=== PATIENT | female | born 1965 | race Caucasian/White ===

== ENCOUNTER 2016-10-29 05:42 | Outpatient (CLI) | payer OTHER ==
[~2016-10-29] VITALS: Ht 162.6 cm; Wt 135.2 kg
[~2016-10-29 05:42] MED LIST: ALPR.5T PO; ALPR1T PO; CYCL10TA9 PO; DIPH25CA79 PO; EZET10TA5 PO; FAMO-119 PO; HCT25T PO; HYDR-707 PO; HYOS0.1216 PO; METF500T4 PO; METO-354 PO; NADO20TA PO; NAPR-243 PO; OMEP40CA36 PO; POLY119P PO; POTA10TA21 PO; PRAV10TA23; PRM25T PO; PROP40TA5 PO; TRIA1CAP4 PO
[2016-10-29] MEDS ORDERED: ALPR0.5T7 PO ×2 (13:21)
[2016-10-29] MEDS ORDERED: METF500T8 PO ×2 (13:21)
== END 2016-10-29 13:22 ==
LOC: PREOP 05:42
PROVIDERS: ATTEND Surgery
DX: Z01.818 Encounter for other preprocedural examination (principal); Z86.010 Personal history of colon polyps

== ENCOUNTER 2016-11-02 08:54 | Day surgery (SDC) | payer OTHER ==
[~2016-11-02 08:54] MED LIST changes: +ALPR0.5T7 PO; +METF500T8 PO
[2016-11-02] MEDS ORDERED: NS IV 1000 ML 1,000 ML IV STA (08:59)
[2016-11-02 09:00] VITALS: BP 109/46
[2016-11-02] MEDS ORDERED: FLUMAZENIL (ROMAZICON) 0.1 MG/ML 5 ML VIAL INJ PRN (09:00)
[2016-11-02] MEDS ORDERED: NALOXONE 0.4 MG/ML 1 ML (NARCAN) VIAL IVP PRN (09:00)
[2016-11-02] MEDS ORDERED: proPOfol 200 MG/20 ML (DIPRIVAN) VIAL IV ONE ×2 (09:18→09:50)
[2016-11-02] MEDS ORDERED: MIDAZOLAM 2 MG/2 ML (VERSED) VIAL ONE (09:19)
--- NOTE | 2016-11-02 09:21 | Progress Note-Pre Operative ---
Pre-Operative Progress Note H&P Reviewed The H&P was reviewed, patient examined and no changes noted. Date Seen by Provider: Nov 02, 2016 Time Seen by Provider: : Date H&P Reviewed: Nov 02, 2016 Time H&P Reviewed: 09:21 Pre-Operative Diagnosis: history of polyps LI GENAO DO Nov 02, 2016 9:21 am
--- NOTE | 2016-11-02 10:06 | Discharge Inst-Simple/Standard ---
Discharge Inst-Standard Patient Instructions/Follow Up Plan of Care/Instructions/FU: Follow up with Dr. Taylor as needed Will need repeat colonoscopy in 5 years or sooner if changes to current condition. Activity as Tolerated: Yes Discharge Diet: No Restrictions COLLEEN ALATORRE APRN Nov 02, 2016 10:06
[2016-11-02 10:10] VITALS: BP 113/64
[2016-11-02 10:40] VITALS: BP 120/60
[2016-11-02 10:41] VITALS: BP 120/60
--- NOTE | 2016-11-03 04:05 | OPERATIVE REPORT ---
DATE OF SERVICE: 11/02/2016 PREOPERATIVE DIAGNOSIS: History of colon polyps. POSTOPERATIVE DIAGNOSIS: Normal colon. PROCEDURE: Colonoscopy. SURGEON: Li Taylor DO ANESTHESIA: Per PULP GRINDER. ESTIMATED BLOOD LOSS: None. COMPLICATIONS: None. INDICATIONS: The patient is a 50-year-old female with history of colon polyps. She understands risks and benefits of procedure and wished to proceed with procedure. Consent was signed and on the chart. PROCEDURE: The patient was taken to the endoscopy suite, placed in left lateral recumbent position. Timeout was performed. Digital rectal exam was performed. There were no palpable polyps, masses or ulcerations. Scope was then inserted in the rectum and advanced all the way to the cecum with minimal difficulty. Prep was adequate. Scope was then slowly retracted back. There were no polyps, masses or ulcerations within the cecum, ascending, transverse, descending, sigmoid colon or rectum. The scope was also retroflexed, noting no further pathology. The scope was returned to its normal position, slowly withdrawn and completely removed. The patient tolerated the procedure well without any complications. She was taken to the recovery room in stable condition. RECOMMENDATIONS: The patient is recommended to have a repeat colonoscopy in 5 years due to history of polyps. If she has any problems prior to that, she should be reevaluated at that time. Job ID: [id number] DocumentID: [id number] Dictated Date: 11/02/2016 13:07:33 Field Merchandiser Date: 11/03/2016 02:38:25 Dictated By: LI TAYLOR DO
--- OUTSIDE RECORDS SUMMARY | 2016-11-04 14:26 | XMS REPORT | Continuity of Care Document ---
Author Author [facility] Organization [facility] Address Unknown Phone Unavailable Allergies Active Description Code Type Severity Reaction Onset Reported/Identified Relationship to Patient Clinical Status Yes doxycycline [id number] Drug Allergy Severe DIFFICULTY HOLA 02/10/2007 Yes Penicillins [id number] Drug Allergy Severe HIVES, THROAT S 02/10/2007 Yes TAPE TAPE Mild RASH, WHELPS ON 02/10/2007 Yes latex [id number] Drug Allergy Mild RASH 11/07/2015 Yes celecoxib [id number] Drug Allergy Unknown N/A 11/08/2015 Yes hydrocodone [id number] Drug Allergy Moderate "MAKES HER FEEL 12/15/2015 Yes Cephalosporins [id number] Drug Allergy Unknown N/A 12/16/2015 Medications Problems Date Dx Coded Attending Type Code Diagnosis Diagnosed By 04/05/2012 Ot 250.00 04/05/2012 Ot 401.9 04/05/2012 Ot 789.00 04/05/2012 Ot V10.52 04/24/2014 ANALIA WOLF, TOD Marcial Ot 272.4 04/24/2014 ANALIA WOLF, TOD Marcial Ot 401.9 04/24/2014 ANALIA WOLF, TOD Marcial Ot V58.69 04/24/2014 ANALIA WOLF, TOD Marcial Ot V58.83 04/24/2014 ANALIA WOLF, TOD Marcial Ot 189.0 04/24/2014 ANALIA WOLF, TOD Marcial Ot 250.00 04/24/2014 TOD HELMS MD Ot 272.4 04/24/2014 ANALIA WOLF, TOD Marcial Ot 401.9 04/24/2014 ANALIA WOLF, TOD Marcial Ot V70.0 04/24/2014 ANALIA WOLF, TOD Marcial Ot 250.00 04/24/2014 ANALIA WOLF, TOD Marcial Ot 272.4 04/24/2014 ANALIA WOLF, TOD Marcial Ot 571.8 04/24/2014 TOD HELMS MD Ot 593.2 04/24/2014 TOD HELMS MD Ot 790.5 04/24/2014 TOD HELMS MD Ot 790.99 04/24/2014 ANALIA WOLF, TOD J Ot V10.52 04/24/2014 ANALIA WOLF, TOD J Ot V76.12 10/31/2014 ANALIA WOLF, TOD J Ot 272.4 10/31/2014 ANALIA WOLF, TOD J Ot 401.9 10/31/2014 ANALIA WOLF, TOD J Ot V58.69 10/31/2014 ANALIA WOLF, TOD J Ot V58.83 10/31/2014 ANALIA WOLF, TOD J Ot 189.0 10/31/2014 ANALIA WOLF, TOD J Ot 250.00 10/31/2014 ANALIA WOLF, TOD J Ot 272.4 10/31/2014 ANALIA WOLF, TOD J Ot 401.9 10/31/2014 ANALIA WOLF, TOD J Ot V70.0 10/31/2014 ANALIA WOLF, TOD J Ot 250.00 10/31/2014 ANALIA WOLF, TOD J Ot 272.4 10/31/2014 ANALIA WOLF, TOD J Ot 571.8 10/31/2014 ANALIA WOLF, TOD J Ot 593.2 10/31/2014 ANALIA WOLF, TOD J Ot 790.5 10/31/2014 ANALIA WOLF, TOD J Ot 790.99 10/31/2014 ANALIA WOLF, TOD J Ot V10.52 10/31/2014 ANALIA WOLF, TOD J Ot V76.12 10/31/2014 ANALIA WOLF, TOD J Ot 250.00 10/31/2014 ANALIA WOLF, TOD J Ot 272.4 10/31/2014 ANALIA WOLF, TOD J Ot 571.8 10/31/2014 ANALIA WOLF, TOD J Ot 729.5 10/31/2014 ANALIA WOLF, TOD J Ot V10.52 11/08/2014 Ot 244.9 11/08/2014 Ot 250.00 11/08/2014 Ot 729.5 11/08/2014 Ot 786.50 11/08/2014 Ot 789.01 11/26/2014 Ot 244.9 11/26/2014 Ot 250.00 11/26/2014 Ot 729.5 11/26/2014 Ot 786.50 11/26/2014 Ot 789.01 11/26/2014 ANALIA WOLF, TOD J Ot 244.9 11/26/2014 ANALIA WOLF, TOD J Ot 250.00 11/26/2014 ANALIA WOLF, TOD J Ot 272.4 11/26/2014 ANALIA MD, TOD J Ot 401.9 11/26/2014 ANALIA WOLF, TOD J Ot V58.69 11/28/2014 ANALIA WOLF, TOD J Ot 244.9 11/28/2014 ANALIA WOLF, TOD J Ot 250.00 11/28/2014 ANALIA WOLF, TOD J Ot 272.4 11/28/2014 ANALIA WOLF, TOD J Ot 401.9 11/28/2014 ANALIA WOLF, TOD J Ot V58.69 11/28/2014 ANALIA WOLF, TOD J Ot 272.4 11/28/2014 ANALIA WOLF, TOD J Ot 401.9 11/28/2014 ANALIA WOLF, TOD J Ot V58.69 11/28/2014 ANALIA WOLF, TOD J Ot V58.83 11/28/2014 ANALIA WOLF, TOD J Ot 189.0 11/28/2014 ANALIA WOLF, TOD J Ot 250.00 11/28/2014 ANALIA WOLF, TOD J Ot 272.4 11/28/2014 ANALIA WOLF, TOD J Ot 401.9 11/28/2014 ANALIA WOLF, TOD J Ot V70.0 11/28/2014 ANALIA WOLF, TOD J Ot 250.00 11/28/2014 ANALIA WOLF, TOD J Ot 272.4 11/28/2014 ANALIA WOLF, TOD J Ot 571.8 11/28/2014 ANALIA WOLF, TOD J Ot 593.2 11/28/2014 ANALIA WOLF, TOD J Ot 790.5 11/28/2014 ANALIA WOLF, ROLLA J Ot 790.99 11/28/2014 ANALIA WOLF, TOD J Ot V10.52 11/28/2014 ANALIA WOLF, TOD J Ot V76.12 11/28/2014 ANALIA WOLF, TOD J Ot 250.00 11/28/2014 ANALIA WOLF, TOD J Ot 272.4 11/28/2014 ANALIA WOLF, TOD J Ot 571.8 11/28/2014 ANALIA WOLF, TOD J Ot 729.5 11/28/2014 ANALIA WOLF, TOD J Ot V10.52 11/28/2014 ANALIA WOLF, TOD J Ot 244.9 11/28/2014 ANALIA WOLF, TDO J Ot 250.00 11/28/2014 ANALIA WOLF, TOD J Ot 272.4 11/28/2014 ANALIA WOLF, TOD J Ot 401.9 11/28/2014 ANALIA WOLF, TOD J Ot V58.69 12/10/2014 ANALIA WOLF, TOD J Ot 272.4 12/10/2014 ANALIA WOLF, TOD J Ot 401.9 12/10/2014 ANALIA WOLF, TOD J Ot V58.69 12/10/2014 ANALIA WOLF, TOD J Ot V58.83 12/10/2014 ANALIA WOLF, TOD J Ot 189.0 12/10/2014 ANALIA WOLF, TOD J Ot 250.00 12/10/2014 ANALIA WOLF, TOD J Ot 272.4 12/10/2014 ANALIA WOLF, TOD J Ot 401.9 12/10/2014 ANALIA WOLF, TOD J Ot V70.0 12/10/2014 ANALIA WOLF, TOD J Ot 250.00 12/10/2014 ANALIA WOLF, TOD J Ot 272.4 12/10/2014 ANALIA WOLF, TOD J Ot 571.8 12/10/2014 ANALIA WOLF, TOD J Ot 593.2 12/10/2014 ANALIA WOLF, TOD J Ot 790.5 12/10/2014 ANALIA WOLF, TOD J Ot 790.99 12/10/2014 ANALIA WOLF, TOD J Ot V10.52 12/10/2014 ANALIA WOLF, TOD J Ot V76.12 12/10/2014 ANALIA WOLF, TOD J Ot 250.00 12/10/2014 ANALIA WOLF, TOD J Ot 272.4 12/10/2014 ANALIA WOLF, TOD J Ot 571.8 12/10/2014 ANALIA WOLF, TOD J Ot 729.5 12/10/2014 ANALIA WOLF, TOD J Ot V10.52 12/10/2014 ANALIA WOLF, TOD J Ot 244.9 12/10/2014 ANALIA WOLF, TOD J Ot 250.00 12/10/2014 ANALIA WOLF, TOD J Ot 272.4 12/10/2014 ANALIA WOLF, TOD J Ot 401.9 12/10/2014 ANALIA WOLF, TOD J Ot V58.69 12/12/2014 ANALIA WOLF, TOD J Ot 722.6 12/12/2014 ANALIA WOLF, TOD J Ot 724.2 12/12/2014 ANALIA WOLF, TOD J Ot V57.1 12/12/2014 ANALIA WOLF, TOD J Ot 722.6 12/12/2014 ANALIA WOLF, TOD J Ot 724.2 12/12/2014 ANALIA WOLF, TOD J Ot V57.1 12/12/2014 ANALIA WOLF, TOD J Ot 275.42 12/17/2014 ANALIA WOLF, TOD J Ot 722.6 12/17/2014 ANALIA WOLF, TOD J Ot 724.2 12/17/2014 ANALIA WOLF, TOD Marcial Ot V57.1 12/24/2014 ANALIA WOLF, TOD Marcial Ot 722.6 12/24/2014 TOD HELMS MD Ot 724.2 12/24/2014 TOD HELMS MD Ot V57.1 12/25/2014 TOD HELMS MD Ot 722.6 12/25/2014 TOD HELMS MD Ot 724.2 12/25/2014 TOD HELMS MD Ot V57.1 12/25/2014 ANALIA WOLF, TOD Marcial Ot 275.42 02/12/2015 ANALIA WOLF, TOD Marcial Ot 722.6 DISC DEGENERATION NOS 02/12/2015 ANALIA WOLF, TOD Marcial Ot 724.2 LUMBAGO 02/12/2015 TOD HELMS MD Ot V57.1 PHYSICAL THERAPY NEC 02/13/2015 TOD HELMS MD Ot 722.6 02/13/2015 TOD HELMS MD Ot 724.2 02/13/2015 TOD HELMS MD Ot V57.1 05/15/2015 TOD HELMS MD Ot 724.2 05/15/2015 ANALIA WOLF, TOD Marcial Ot M54.5 09/12/2015 Ot 244.9 HYPOTHYROIDISM NOS 09/12/2015 Ot 250.00 DIAB VIRI WO COMPL, TYPE II OR UNSPEC TY 09/12/2015 Ot 729.5 PAIN IN LIMB 09/12/2015 Ot 786.50 CHEST PAIN NOS 09/12/2015 Ot 789.01 ABDOMINAL PAIN, RIGHT UPPER QUADRANT 11/07/2015 Ot 244.9 HYPOTHYROIDISM NOS 11/07/2015 Ot 250.00 DIAB VIRI WO COMPL, TYPE II OR UNSPEC TY 11/07/2015 Ot 729.5 PAIN IN LIMB 11/07/2015 Ot 786.50 CHEST PAIN NOS 11/07/2015 Ot 789.01 ABDOMINAL PAIN, RIGHT UPPER QUADRANT 11/07/2015 ANALIA WOLF, TOD Marcial Ot M54.5 LOW BACK PAIN 11/07/2015 Ot J18.9 PNEUMONIA, UNSPECIFIED ORGANISM 11/07/2015 Ot 250.00 DIAB VIRI WO COMPL, TYPE II OR UNSPEC TY 11/07/2015 Ot 571.8 CHRONIC LIVER DIS NEC 11/07/2015 Ot 780.4 DIZZINESS AND GIDDINESS 11/07/2015 Ot 786.07 WHEEZING 11/07/2015 Ot 786.2 COUGH 11/07/2015 Ot 789.00 ABDOMINAL PAIN, UNSPECIFIED SITE 11/07/2015 Ot V10.52 HX OF KIDNEY MALIGNANCY 11/07/2015 Ot V70.0 ROUTINE MEDICAL EXAM 11/07/2015 Ot 785.1 PALPITATIONS 11/07/2015 Ot 786.50 CHEST PAIN NOS 11/07/2015 JOSH FARIAS MD Ot E66.09 OTHER OBESITY DUE TO EXCESS CALORIES 11/07/2015 JOSH FARIAS MD Ot M51.16 INTERVERTEBRAL DISC DISORDERS W RADICULO 11/07/2015 JOSH FARIAS MD Ot M53.3 SACROCOCCYGEAL DISORDERS, NOT ELSEWHERE 11/07/2015 JOSH FARIAS MD Ot Z68.43 BODY MASS INDEX (BMI) 50-59.9 , ADULT 11/07/2015 Ot J18.9 PNEUMONIA, UNSPECIFIED ORGANISM 11/08/2015 Ot 250.00 DIAB VIRI WO COMPL, TYPE II OR UNSPEC TY 11/08/2015 Ot 571.8 CHRONIC LIVER DIS NEC 11/08/2015 Ot 780.4 DIZZINESS AND GIDDINESS 11/08/2015 Ot 786.07 WHEEZING 11/08/2015 Ot 786.2 COUGH 11/08/2015 Ot 789.00 ABDOMINAL PAIN, UNSPECIFIED SITE 11/08/2015 Ot V10.52 HX OF KIDNEY MALIGNANCY 11/08/2015 Ot V70.0 ROUTINE MEDICAL EXAM 11/08/2015 Ot 785.1 PALPITATIONS 11/08/2015 Ot 786.50 CHEST PAIN NOS 11/08/2015 BARRY HENNING DO Ot E11.65 TYPE 2 DIABETES MELLITUS WITH HYPERGLYCE 11/08/2015 BARRY HENNING DO Ot L50.9 URTICARIA, UNSPECIFIED 11/08/2015 BARRY HENNING DO Ot Z79.4 HOUSE NURSE (CURRENT) USE OF INSULIN 11/27/2015 JOSH FARIAS MD Ot E66.09 OTHER OBESITY DUE TO EXCESS CALORIES 11/27/2015 OJSH FARIAS MD Ot M51.16 INTERVERTEBRAL DISC DISORDERS W RADICULO 11/27/2015 JOSH FARIAS MD Ot M53.3 SACROCOCCYGEAL DISORDERS, NOT ELSEWHERE 11/27/2015 JOSH FARIAS MD Ot Z68.43 BODY MASS INDEX (BMI) 50-59.9 , ADULT 12/09/2015 Ot J18.9 PNEUMONIA, UNSPECIFIED ORGANISM 12/12/2015 LI GENAO DO Ot Z01.818 ENCOUNTER FOR OTHER PREPROCEDURAL EXAMIN 12/12/2015 LI GENAO DO Ot Z86.010 PERSONAL HISTORY OF COLONIC POLYPS 12/15/2015 Ot 250.00 DIAB VIRI WO COMPL, TYPE II OR UNSPEC TY 12/15/2015 Ot 571.8 CHRONIC LIVER DIS NEC 12/15/2015 Ot 780.4 DIZZINESS AND GIDDINESS 12/15/2015 Ot 786.07 WHEEZING 12/15/2015 Ot 786.2 COUGH 12/15/2015 Ot 789.00 ABDOMINAL PAIN, UNSPECIFIED SITE 12/15/2015 Ot V10.52 HX OF KIDNEY MALIGNANCY 12/15/2015 Ot V70.0 ROUTINE MEDICAL EXAM 12/15/2015 Ot 785.1 PALPITATIONS 12/15/2015 Ot 786.50 CHEST PAIN NOS 12/15/2015 LI GENAO DO Ot Z01.818 ENCOUNTER FOR OTHER PREPROCEDURAL EXAMIN 12/15/2015 LI GENAO DO Ot Z86.010 PERSONAL HISTORY OF COLONIC POLYPS 12/15/2015 LI GENAO DO Ot Z01.818 ENCOUNTER FOR OTHER PREPROCEDURAL EXAMIN 12/15/2015 LI GENAO DO Ot Z86.010 PERSONAL HISTORY OF COLONIC POLYPS 12/16/2015 Ot 250.00 DIAB VIRI WO COMPL, TYPE II OR UNSPEC TY 12/16/2015 Ot 571.8 CHRONIC LIVER DIS NEC 12/16/2015 Ot 780.4 DIZZINESS AND GIDDINESS 12/16/2015 Ot 786.07 WHEEZING 12/16/2015 Ot 786.2 COUGH 12/16/2015 Ot 789.00 ABDOMINAL PAIN, UNSPECIFIED SITE 12/16/2015 Ot V10.52 HX OF KIDNEY MALIGNANCY 12/16/2015 Ot V70.0 ROUTINE MEDICAL EXAM 12/16/2015 Ot 785.1 PALPITATIONS 12/16/2015 Ot 786.50 CHEST PAIN NOS 12/16/2015 LI GENAO DO Ot K62.1 RECTAL POLYP 12/16/2015 LI GENAO DO Ot K63.5 POLYP OF COLON 12/16/2015 LI GENAO DO Ot Z12.11 ENCOUNTER FOR SCREENING FOR MALIGNANT NE 12/21/2015 LI GENAO DO Ot Z01.818 ENCOUNTER FOR OTHER PREPROCEDURAL EXAMIN 12/21/2015 LI GENAO DO Ot Z86.010 PERSONAL HISTORY OF COLONIC POLYPS 12/26/2015 LI GENAO DO Ot K62.1 RECTAL POLYP 12/26/2015 LI GENAO DO Ot K63.5 POLYP OF COLON 12/26/2015 LI GENAO DO Ot Z12.11 ENCOUNTER FOR SCREENING FOR MALIGNANT NE 07/05/2016 Ot 789.03 ABDOMINAL PAIN, RIGHT LOWER QUADRANT 07/05/2016 Ot 789.03 ABDOMINAL PAIN, RIGHT LOWER QUADRANT 10/18/2016 Ot J18.9 PNEUMONIA, UNSPECIFIED ORGANISM 10/18/2016 HOLA MUNSON METAL MINE INSPECTOR Ot Z12.31 ENCNTR SCREEN MAMMOGRAM FOR MALIGNANT NE 10/20/2016 Ot J18.9 PNEUMONIA, UNSPECIFIED ORGANISM 10/20/2016 HOLA MUNSON METAL MINE INSPECTOR Ot Z12.31 ENCNTR SCREEN MAMMOGRAM FOR MALIGNANT NE 10/20/2016 Ot J18.9 PNEUMONIA, UNSPECIFIED ORGANISM 10/20/2016 HOLA MUNSON METAL MINE INSPECTOR Ot Z12.31 ENCNTR SCREEN MAMMOGRAM FOR MALIGNANT NE 10/21/2016 Ot J18.9 PNEUMONIA, UNSPECIFIED ORGANISM 10/21/2016 HOLA MUNSON METAL MINE INSPECTOR Ot Z12.31 ENCNTR SCREEN MAMMOGRAM FOR MALIGNANT NE 11/02/2016 Ot J18.9 PNEUMONIA, UNSPECIFIED ORGANISM 11/02/2016 HOLA MUNOSN METAL MINE INSPECTOR Ot Z12.31 ENCNTR SCREEN MAMMOGRAM FOR MALIGNANT NE Procedures Results Encounters ACCT No. Visit Date/Time Discharge Status Pt. Type Provider Facility Loc./Unit Complaint [id number] 11/02/2016 08:54:00 2016 10:41:00 DIS Outpatient LI GENAO DO [facility] ENDO HX POLYPS [id number] 10/29/2016 05:42:00 2016 13:22:00 DIS Outpatient LI GENAO DO [facility] PREOP COLONOSCOPY [id number] 12/16/2015 09:53:00 2015 13:50:00 DIS Outpatient LI GENAO DO [facility] HISTORY OF POLYPS [id number] 12/15/2015 08:30:00 2015 08:51:00 DIS Outpatient LI GENAO DO [facility] PREOP HISTORY OF POLYPS [id number] 11/07/2015 23:27:00 2015 01:59:00 DIS Emergency BARRY HENNING DO [facility] ER HIGH BLOOD SUGAR [id number] 11/07/2015 07:25:00 2015 08:22:00 DIS Outpatient JOSH FARIAS MD [facility] CARD DISC DISORDER / RADICULOPATHY, LUMBAR [id number] 04/17/2015 15:44:00 2014 00:01:00 DIS Outpatient TOD HELMS MD [facility] REHAB [id number] 02/24/2015 10:36:00 2014 23:59:59 CLS Outpatient TOD HELMS MD [facility] RAD [id number] 02/10/2015 15:41:00 2014 00:01:00 DIS Outpatient TOD HELMS MD [facility] REHAB LOW BACK PAIN;DDD [id number] 12/15/2014 06:15:00 2014 00:01:00 DIS Outpatient TOD HELMS MD [facility] LAB [id number] 12/10/2014 13:58:00 2014 23:59:59 CLS Outpatient TOD HELMS MD [facility] LAB [id number] 11/26/2014 08:30:00 2014 13:00:00 DIS Outpatient TOD HELMS MD [facility] LAB [id number] 04/24/2014 07:33:00 2013 23:59:59 CLS Outpatient TOD HELMS MD [facility] RAD [id number] 01/17/2014 06:44:00 2013 23:59:59 CLS Outpatient TOD HELMS MD [facility] LAB [id number] 04/11/2013 08:53:00 2012 23:59:59 CLS Outpatient TOD HELMS MD [facility] RAD [id number] 10/06/2012 09:43:00 2012 23:59:59 CLS Outpatient TOD HELMS MD [facility] LAB [id number] 10/21/2016 10:00:00 PEN Eusebiomit KENDAL COLON MD [facility] RAD ROUTINE/SCREENING [id number] 12/09/2015 15:18:00 ACT Outpatient HOLA MUNSON [facility] RAD SCREENING [id number] 09/13/2015 14:49:00 ACT Outpatient TOD HELMS MD [facility] RAD [id number] 06/12/2015 11:48:00 Document Registration [id number] 05/16/2015 00:17:00 PEN TOD Swenson MD [facility] REHAB [id number] 07/15/2014 13:23:00 Document Registration [id number] 04/05/2012 20:38:00 Document Registration [id number] 03/21/2012 11:00:00 Document Registration [id number] 02/09/2012 00:00:00 Document Registration [id number] 04/02/2011 11:47:00 Document Registration
== END 2016-11-02 10:41 | disposition home or self-care (01) ==
LOC: ENDO 08:54
PROVIDERS: ATTEND Surgery
DX: Z09 Encounter for follow-up examination after completed treatment for conditions other than malignant neoplasm (principal); Z86.010 Personal history of colon polyps; I10 Essential (primary) hypertension; E78.5 Hyperlipidemia, unspecified; E11.9 Type 2 diabetes mellitus without complications; E66.01 Morbid (severe) obesity due to excess calories; Z68.43 Body mass index [BMI] 50.0-59.9, adult; Z79.84 Long term (current) use of oral hypoglycemic drugs; Z79.899 Other long term (current) drug therapy

== ENCOUNTER 2016-12-01 19:00 | Observation (INO) | payer OTHER ==
[~2016-12-01] VITALS: Ht 162.6 cm; Wt 135.2 kg
[2016-12-01] MEDS ORDERED: hydrALAZINE (APESOLINE) 20 MG/ML VIAL IV ONE (19:15)
[2016-12-01] MEDS ORDERED: ASPIRIN 81 MG CHEW (CHILDREN'S ASA) PO ONE (19:15)
[2016-12-01 19:17] LABS: BASOPHILS % (AUTO) 0 % (0-10); EOSINOPHILS # (AUTO) 0.3 10^3/uL (0.0-0.3); EOSINOPHILS % (AUTO) 2 % (0-10); LYMPHOCYTES # (AUTO) 3.8 X 10^3 (1.0-4.0); LYMPHOCYTES % (AUTO) 27 % (12-44); MEAN CORPUSCULAR HEMOGLOBIN 28 PG (25-34); MEAN CORPUSCULAR HGB CONC 33 G/DL (32-36); MEAN CORPUSCULAR VOLUME 85 FL (80-99); MONOCYTES # (AUTO) 1.5 X 10^3 (0.0-1.0); MONOCYTES % (AUTO) 11 % (0-12); NEUTROPHILS # (AUTO) 8.3 X 10^3 (1.8-7.8); NEUTROPHILS % (AUTO) 60 % (42-75); PLATELET COUNT 285 10^3/uL (130-400); RED BLOOD COUNT 4.76 10^6/uL (4.35-5.85)
[2016-12-01 19:30] LABS: INR 0.9 (0.8-1.4); PROTHROMBIN TIME PATIENT 12.2 SEC (12.2-14.7)
--- NOTE | 2016-12-01 19:33 | ED Chest Pain ---
General Chief Complaint: Chest Pain Stated Complaint: CHEST PAIN Nursing Triage Note: PT C/O CP RADIATING TO HER BACK THAT BEGAN AROUND 1530 THIS AFTERNOON. SHE STATES SHE HAS BEEN UNDER STRESS TODAY. SHE REPORTS SHE WAS CRYING TODAY WHEN HER PAIN STARTED. SHE ALSO STATES SHE HAS XANAX AT HOME FOR ANXIETY AND SHE TOOK 1 MG GARBAGE STOKER. Nursing Sepsis Screen: No Definite Risk Source: patient Exam Limitations: no limitations History of Present Illness Time seen by provider: 18:59 Initial Comments Here with complaint of chest pain that started at about 330 p.m. Noted that it was right-sided and then radiated to her back. It came much more significant approximately 30 minutes prior to arrival. States this all started with significant anxiety related to both of her daughters who are both moving away. They are both admitting for happy occasions but she is having stress related to that. Had some diarrhea. Did note that her anxiety was significantly elevated related to this and she did take her Xanax for that. She took it approximately 30 minutes prior to arrival and has not helped yet. Also took her evening dose of blood pressure medicines as her blood pressure was elevated. Timing/Duration: 1-3 hours, changing over time Severity/Quality: moderate, aching, pressure Location: central Radiation: shoulders, back Activities at Onset: none Prior CP/Workup: no prior chest pain ASA po GARBAGE STOKER: No NTG SL GARBAGE STOKER: No Associated Symptoms: No abdominal pain, No back pain, No diaphoresis, fever/ chills, No nausea/vomiting, shortness of breath, No weakness Allergies and Home Medications Allergies Coded Allergies: Penicillins (Unverified Allergy, Severe, HIVES, THROAT SWELLS, DIFFICULTY BREATHING, 02/10/07) doxycycline (Unverified Allergy, Severe, DIFFICULTY BREATHING, HIVES, THROAT SWELLS, 02/10/07) hydrocodone (Verified Allergy, Intermediate, "MAKES HER FEEL VERY BAD", 12/15/15) latex (Verified Allergy, Mild, RASH, 11/07/15) Cephalosporins (Unverified Allergy, Unknown, 12/16/15) celecoxib (Unverified Allergy, Unknown, 11/08/15) Uncoded Allergies: TAPE (Adverse Reaction, Mild, RASH, WHELPS ON SKIN WHERE TAPE WAS., 02/10/07 ) Home Medications Alprazolam 0.5 Mg Tablet, 0.5 MG PO BID PRN for ANXIETY, (Reported) Metformin HCl 500 Mg Tab.er.24h, 500 MG PO BID, (Reported) Propranolol HCl 40 Mg Tablet, 40 MG PO HS, (Reported) Triamterene/Hydrochlorothiazid 1 Each Capsule, 1 EACH PO HS, (Reported) Review of Systems Constitutional: see HPI, No chills, No fever EENTM: No Symptoms Reported Respiratory: No Symptoms Reported Cardiovascular: See HPI, Chest Pain, Denies Edema, Lightheadedness Gastrointestinal: Denies Abdominal Pain, Diarrhea, Denies Nausea, Denies Vomiting Genitourinary: No Symptoms Reported Musculoskeletal: no symptoms reported Skin: no symptoms reported Psychiatric/Neurological: See HPI, Anxiety, Emotional Problems Endocrine: No Symptoms Reported All Other Systems Reviewed Negative Unless Noted: Yes Past Kyqbhqe-Dbolsl-Boqgle Hx Patient Social History Alcohol Use: Denies Use Recreational Drug Use: No Smoking Status: Never a Smoker 2nd Hand Smoke Exposure: No Recent Foreign Travel: No Contact w/Someone Who Travel: No Recent Infectious Disease Expo: No Recent Hopitalizations: No Immunizations Up To Date Date of Pneumonia Vaccine: Feb 13, 2010 Seasonal Allergies Seasonal Allergies: Yes Surgeries HX Surgeries: Yes (SURGERY ON BOILS , HEMORHHOIDECTOMY, TUMOR REMOVED FROM L KIDNEY) Surgeries: Bladder Surgery, Section, Gallbladder, Hysterectomy Respiratory Hx Respiratory Disorders: Yes (ALLERGY INDUCED ASTHMA) Respiratory Disorders: Asthma, Chronic Bronchitis Cardiovascular Hx Cardiac Disorders: Yes Cardiac Disorders: Hypertension Neurological Hx Neurological Disorders: No 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 System Hx 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 Disorders: No Sexually 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 Disease: 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 Genitourinary Hx Genitourinary Disorders: Yes (CANCEROUS TUMOR REMOVED FROM KIDNEY) Gastrointestinal Hx Gastrointestinal Disorders: Yes (Fatty Liver Disease, UMBILICAL HERNIA) Gastrointestinal Disorders: Polyps, Ulcer Musculoskeletal Hx Musculoskeletal Disorders: Yes (STENOSIS IN LOWER BACK, OSTEOARTHRITIS, DJD) Musculoskeletal Disorders: Degenerate Disk Disease, Arthritis Endocrine Hx Endocrine Disorders: Yes Endocrine Disorders: Hypothyroidsim, Diabetes, Non-Insulin dep HEENT HX ENT Disorders: No Cancer Hx Cancer: Yes (CANCEROUS TUMOR KIDNEY) Psychosocial Hx Psychiatric Problems: Yes (PANIC ATTACKS ) Behavioral Health Disorders: Anxiety Integumentary HX Skin/Integumentary Disorder: No Blood Transfusions Hx Blood Disorders: No Reviewed Nursing Assessment Reviewed/Agree w Nursing PMH: Yes Family Medical History Significant Family History: No Pertinent Family Hx Physical Exam Vital Signs Vital Sign - Last 12Hours Capillary Refill : Less Than 3 Seconds General Appearance: WD/WN, Anxious HEENT: PERRL/EOMI, Pharynx Normal Neck: Full Range of Motion, Non Tender, Supple Respiratory: Lungs Clear, Normal Breath Sounds Cardiovascular: No Murmur, Normal Peripheral Pulses, Tachycardia Gastrointestinal: Non Tender, Soft Extremity: Normal Range of Motion, Non Tender, No Calf Tenderness Neurologic/Psychiatric: Alert, Oriented x3 Skin: Normal Color, Warm/Dry Progress/Results/Core Measures Results/Orders Lab Results Laboratory Tests Test 12/01/16 19:00 12/01/16 22:21 Range/Units White Blood Count 14.0 H 4.3-11.0 10^3/uL Red Blood Count 4.76 4.35-5.85 10^6/uL Hemoglobin 13.2 11.5-16.0 G/DL Hematocrit 41 35-52 % Mean Corpuscular Volume 85 80-99 FL Mean Corpuscular Hemoglobin 28 25-34 PG Mean Corpuscular Hemoglobin Concent 33 32-36 G/DL Red Cell Distribution Width 14.0 10.0-14.5 % Platelet Count 285 130-400 10^3/uL Mean Platelet Volume 12.0 H 7.4-10.4 FL Neutrophils (%) (Auto) 60 42-75 % Lymphocytes (%) (Auto) 27 12-44 % Monocytes (%) (Auto) 11 0-12 % Eosinophils (%) (Auto) 2 0-10 % Basophils (%) (Auto) 0 0-10 % Neutrophils # (Auto) 8.3 H 1.8-7.8 X 10^3 Lymphocytes # (Auto) 3.8 1.0-4.0 X 10^3 Monocytes # (Auto) 1.5 H 0.0-1.0 X 10^3 Eosinophils # (Auto) 0.3 0.0-0.3 10^3/uL Basophils # (Auto) 0.0 0.0-0.1 10^3/uL Prothrombin Time 12.2 12.2-14.7 SEC INR Comment 0.9 0.8-1.4 Activated Partial Thromboplast Time 27 24-35 SEC D-Dimer 0.52 H 0.00-0.49 UG/ML Sodium Level 140 135-145 MMOL/L Potassium Level 3.6 3.6-5.0 MMOL/L Chloride Level 102 98-107 MMOL/L Carbon Dioxide Level 24 21-32 MMOL/L Anion Gap 14 5-14 MMOL/L Blood Urea Nitrogen 21 H 7-18 MG/DL Creatinine 1.11 0.60-1.30 MG/DL Estimat Glomerular Filtration Rate 51 BUN/Creatinine Ratio 19 Glucose Level 106 H 70-105 MG/DL Calcium Level 10.5 H 8.5-10.1 MG/DL Magnesium Level 1.8 1.8-2.4 MG/DL Total Bilirubin 0.5 0.1-1.0 MG/DL Aspartate Amino Transf (AST/SGOT) 64 H 5-34 U/L Alanine Aminotransferase (ALT/SGPT) 81 H 0-55 U/L Alkaline Phosphatase 79 40-136 U/L Myoglobin 49.6 10.0-92.0 NG/ML Troponin I < 0.30 < 0.30 <0.30 NG/ML Total Protein 7.8 6.4-8.2 GM/DL Albumin 4.0 3.2-4.5 GM/DL My Orders Orders - STEPH SMITH MD Cbc With Automated Diff (12/01/16 19:10) Magnesium (12/01/16 19:10) Chest 1 View, Ap/Pa Only (12/01/16 19:10) Ekg Tracing (12/01/16 19:10) Cardiac Profile 1 (12/01/16 19:10) Comprehensive Metabolic Panel (12/01/16 19:10) Myoglobin Serum (12/01/16 19:10) Protime With Inr (12/01/16 19:10) Partial Thromboplastin Time (12/01/16 19:10) O2 (12/01/16 19:10) Monitor-Rhythm Ecg Trace Only (12/01/16 19:10) Lipid Panel (12/02/16 06:00) Aspirin Chewable Tablet (Baby Aspirin Ch (12/01/16 19:15) Saline Lock/Iv-Start (12/01/16 19:10) Hydralazine Injection (Apresoline Inject (12/01/16 19:15) Rx-Nitroglycerin Sl Tabs (Rx-Nitrostat S (12/01/16 20:30) Fibrin Degradation Products (12/01/16 20:26) Lorazepam Injection (Ativan Injection) (12/01/16 20:30) Labetalol Injection (Normodyne Injection (12/01/16 21:15) Ekg Tracing (12/01/16 21:08) Troponin I (12/01/16 21:49) Acetaminophen Tablet (Tylenol Tablet) (12/01/16 22:41) Lidocaine 2% Viscous 15 Ml (Xylocaine Vi (12/01/16 22:45) Antacid Suspension (Mylanta Suspension (12/01/16 22:45) Medications Given in ED Current Medications Medications Dose Ordered Sig/Raheem Route Start Time Stop Time Status Last Admin Dose Admin Al Hydrox/Mg Hydrox/Simethicone 30 ml ONCE ONCE PO 12/01/16 22:45 12/01/16 22:46 DC 12/01/16 22:52 30 ML Aspirin 324 mg ONCE ONCE PO 12/01/16 19:15 12/01/16 19:16 DC 12/01/16 19:30 324 MG Hydralazine HCl 20 mg ONCE ONCE IV 12/01/16 19:15 12/01/16 19:16 DC 12/01/16 19:30 20 MG Labetalol HCl 20 mg ONCE ONCE IV 12/01/16 21:15 12/01/16 21:16 DC 12/01/16 21:20 20 MG Lidocaine HCl 15 ml ONCE ONCE PO 12/01/16 22:45 12/01/16 22:46 DC 12/01/16 22:52 15 ML Lorazepam 0.5 mg ONCE ONCE IVP 12/01/16 20:30 12/01/16 20:31 DC 12/01/16 20:34 0.5 MG Nitroglycerin 0.4 mg PRN PRN SL 12/01/16 20:30 12/01/16 20:24 0.4 MG Vital Signs/I&O Vital Sign - Last 12Hours 12/01/16 12/01/16 19:00 19:00 Temp 100.6 Pulse 94 Resp 16 B/P (MAP) 232/127 Pulse Ox 100 O2 Delivery Room Air Room Air Blood Pressure Mean: 162 Progress Note : Progress Note Seen and evaluated. IV, labs, EKG and chest x-ray ordered. ASA 324 mg by mouth. Hydralazine 20 mg IV for elevated blood pressure. Hold nitroglycerin at this point as her chest pain is essentially resolved. 2014: Chest pain returned. Nitroglycerin sublingual ordered. Blood pressure 203/91 with heart rate of 111. Monitor patient. 2149: Patient did have tachycardia after nitroglycerin. Repeat EKG done. Blood pressure remains elevated. Labetalol 20 mg IV given. Monitor patient. 2149: Heart rate now 88 with blood pressure 134/74. Otherwise no significant acute findings. We will do repeat troponin now and if negative discharge home with follow-up with her doctor. Monitor patient. 3: Patient's repeat troponin is negative and blood pressure has improved but she still feels not well and is very concerned about her safety at home. I did discuss with her doctor, Dr. Colon about the concerns and he has agreed to admit her for observation status. Patient does have some labile blood pressure and overnight monitoring is reasonable given her chest pain earlier. Patient did receive Tylenol 1 g by mouth for headache and GI cocktail for stomach upset. This has improved her symptoms. Admit, observation status. Patient and family agree with plan. ECG Initial ECG Impression Date: Dec 01, 2016 Initial ECG Impression Time: 19:02 Initial ECG Rate: 104 Initial ECG Rhythm: S.Tach Comment Sinus tachycardia with left ventricular hypertrophy. No evidence of ST elevation IN. Overall similar to previous of 11/10/11 with the exception of rate. Interpreted by me. EKG : EKG Time: 20:31 Rate: 120 Rhythm: S.Tach Comment Sinus tachycardia with left ventricular hypertrophy. No evidence of ST elevation IN. Heart rate now 120. Otherwise unchanged from previous. Interpreted by me. Diagnostic Imaging Diagonstic Imaging: Xray Plain Films/CT/US/NM/MRI: chest Comments VIA [facility] [place]. [place], [place] NAME: JESSICA LONGO [employer] REC#: [id number] PT STATUS: REG ER : 1965 PHYSICIAN: STEPH SMITH MD ADMIT DATE: 12/01/16/ER Draft Date of Exam:12/01/16 CHEST 1 VIEW, AP/PA ONLY EXAM: Chest 1 view, AP/PA only. INDICATION: Chest pain radiating to back. COMPARISON: Chest radiograph from 06/12/2015. FINDINGS: No significant change. Normal heart size and pulmonary vascularity. No focal pulmonary opacity, pleural effusion or pneumothorax. No acute osseous findings. IMPRESSION: No acute cardiopulmonary findings. Dictated on workstation # [id number] Dict: 12/01/161949 Trans: 12/01/161951 [facility] [id number] Interpreted by: BRIDGER OCHOA MD Electronically signed by: Departure Communication Time/Spoke to Admitting Phy: 23:23 Impression Impression: Primary Impression: Malignant hypertension Additional Impressions: Chest pain Qualified Codes: R07.9 - Chest pain, unspecified Anxiety Disposition: ADMITTED INPATIENT Condition: Stable Decision to Admit Reason: Admit from ER (General) Decision to Admit/Date: Dec 01, 2016 Time/Decision to Admit Time: 23:23 Departure-Patient Inst. Referrals: KENDAL COLON MD (PCP/Family) Primary Care Physician STEPH SMITH MD Dec 01, 2016 19:33
[2016-12-01 19:42] LABS: ALANINE AMINOTRANSFERASE 81 U/L (0-55); ANION GAP 14 MMOL/L (5-14); ASPARTATE AMINO TRANSFERASE 64 U/L (5-34); BILIRUBIN,TOTAL 0.5 MG/DL (0.1-1.0); BLOOD UREA NITROGEN 21 MG/DL (7-18); BUN/CREATININE RATIO 19; CALCIUM 10.5 MG/DL (8.5-10.1); CARBON DIOXIDE 24 MMOL/L (21-32); CHLORIDE 102 MMOL/L (98-107); CREATININE SERUM 1.11 MG/DL (0.60-1.30); GFR ESTIMATED 51; GLUCOSE 106 MG/DL (70-105); MAGNESIUM 1.8 MG/DL (1.8-2.4); POTASSIUM 3.6 MMOL/L (3.6-5.0); SODIUM 140 MMOL/L (135-145); TOTAL PROTEIN 7.8 GM/DL (6.4-8.2)
[2016-12-01 19:48] LABS: MYOGLOBIN SERUM 49.6 NG/ML (10.0-92.0)
--- NOTE | 2016-12-01 19:53 | Diagnostic Imaging Report ---
EXAM: Chest 1 view, AP/PA only. INDICATION: Chest pain radiating to back. COMPARISON: Chest radiograph from 06/12/2015. FINDINGS: No significant change. Normal heart size and pulmonary vascularity. No focal pulmonary opacity, pleural effusion or pneumothorax. No acute osseous findings. IMPRESSION: No acute cardiopulmonary findings. Dictated by: Dictated on workstation # [id number]
[2016-12-01] MEDS ORDERED: RX-NITROGLYCERIN 0.4 MG TAB BTL 25'S SL PRN (20:30)
[2016-12-01] MEDS ORDERED: LORazepam INJ 2 MG/ML (ATIVAN) VIAL IVP ONE (20:30)
[2016-12-01] MEDS ORDERED: LABETALOL HCL 20 MG/4 ML VIAL IV ONE (21:15)
[2016-12-01] MEDS ORDERED: ACETAMINOPHEN 500 MG TAB (TYLENOL) PO STA (22:41)
[2016-12-01] MEDS ORDERED: LIDOCAINE 2% VISCOUS 15 ML UDC PO ONE (22:45)
[2016-12-01] MEDS ORDERED: ANTACID SUSP 30 ML UDC (MYLANTA) PO ONE (22:45)
[2016-12-02] VITALS (10 sets, daily range): BP systolic 130–169; BP diastolic 72–98
[2016-12-02] MEDS ORDERED: LABETALOL HCL 20 MG/4 ML VIAL IV ONE
[2016-12-02] MEDS ORDERED: NS IV 1000 ML 1,000 ML ONE (00:58)
[2016-12-02] MEDS ORDERED: LORazepam INJ 2 MG/ML (ATIVAN) VIAL ONE (02:20)
[2016-12-02] MEDS ORDERED: LORazepam INJ 2 MG/ML (ATIVAN) VIAL IVP PRN (02:30)
[2016-12-02] MEDS ORDERED: RT-ALBUTEROL/IPRATROPIUM 3 ML (DUONEB) VIAL INH PRN (03:00)
[2016-12-02] MEDS ORDERED: LABETALOL HCL 20 MG/4 ML VIAL IV PRN (04:30)
[2016-12-02] MEDS ORDERED: NS IV 1000 ML 1,000 ML IV SCH (04:30)
[2016-12-02] MEDS ORDERED: morphine INJ 4 MG/ML 1 ML (VIAL/SYRINGE) IV PRN (04:45)
[2016-12-02] MEDS ORDERED: NITROGLYCERIN SUBLINGUAL 0.4 MG TAB (NITROSTAT) SL PRN (04:45)
[2016-12-02 05:33] LABS: BASOPHILS % (AUTO) 0 % (0-10); EOSINOPHILS # (AUTO) 0.3 10^3/uL (0.0-0.3); EOSINOPHILS % (AUTO) 3 % (0-10); LYMPHOCYTES # (AUTO) 2.8 X 10^3 (1.0-4.0); LYMPHOCYTES % (AUTO) 31 % (12-44); MEAN CORPUSCULAR HEMOGLOBIN 28 PG (25-34); MEAN CORPUSCULAR HGB CONC 33 G/DL (32-36); MEAN CORPUSCULAR VOLUME 85 FL (80-99); MEAN PLATELET VOLUME 11.7 FL (7.4-10.4); MONOCYTES # (AUTO) 1.1 X 10^3 (0.0-1.0); MONOCYTES % (AUTO) 12 % (0-12); NEUTROPHILS # (AUTO) 4.8 X 10^3 (1.8-7.8); NEUTROPHILS % (AUTO) 54 % (42-75); PLATELET COUNT 240 10^3/uL (130-400); RED BLOOD COUNT 4.18 10^6/uL (4.35-5.85); RED CELL DISTRIBUTION WIDTH 13.9 % (10.0-14.5)
[2016-12-02] MEDS ORDERED: inSUlin (REGULAR) HUMAN 1 UNIT/0.01 ML (CHARGE PER UNIT) SC SCH (06:00)
[2016-12-02 06:02] LABS: ALANINE AMINOTRANSFERASE 63 U/L (0-55); ALBUMIN 3.4 GM/DL (3.2-4.5); ANION GAP 13 MMOL/L (5-14); ASPARTATE AMINO TRANSFERASE 46 U/L (5-34); BILIRUBIN,TOTAL 0.5 MG/DL (0.1-1.0); BLOOD UREA NITROGEN 19 MG/DL (7-18); BUN/CREATININE RATIO 20; CALCIUM 9.7 MG/DL (8.5-10.1); CARBON DIOXIDE 23 MMOL/L (21-32); CHLORIDE 102 MMOL/L (98-107); CHOLESTEROL 181 MG/DL (< 200); CREATININE SERUM 0.95 MG/DL (0.60-1.30); DIRECT LDL 140 MG/DL (1-129); GFR ESTIMATED > 60; GLUCOSE 115 MG/DL (70-105); POTASSIUM 3.2 MMOL/L (3.6-5.0); SODIUM 138 MMOL/L (135-145); TOTAL PROTEIN 6.6 GM/DL (6.4-8.2); TRIGLYCERIDES 110 MG/DL (<150); VLDL CHOLESTEROL 22 MG/DL (5-40)
[2016-12-02 06:10] LABS: MYOGLOBIN SERUM 49.5 NG/ML (10.0-92.0)
[2016-12-02] MEDS ORDERED: RT-ALBUTEROL/IPRATROPIUM 3 ML (DUONEB) VIAL INH SCH (08:00)
--- NOTE | 2016-12-02 08:20 | History & Physical ---
History of Present Illness History of Present Illness Reason for visit/HPI 51 yo F admitted for overnight observation regarding chest discomfort that started earlier in the day around 330pm. Recent information that her daughters were both getting engaged and one moving to [place] and the other to [place] sent her into a panic attack. She eventually took a xanax but it did not help so she went to the ER. EKG and troponin work up was negative- Pt was found to have elevated blood pressure and was given hydralazine which subsequently caused transient tachycardia. Her blood pressure was brought down with labetalol IV. Pt finally did calm down (she was given lorazepam and IVF) but was worried about a heart attack so it was decided given her history of diabetes, HLD, obesity HTN that we would trend troponins and monitor on telemetry overnight. Pt was given ASA in the ER. No overnight events- chest pain resolved. Patient is willing to be started on a maintenance anxiety medication. Date of Admission Dec 01, 2016 at 23:30 Date Seen by Provider: Dec 02, 2016 Time Seen by Provider: 08:45 I consulted on this patient on 12/02/16 08:19 Attending Physician Devyn Colon MD Admitting Physician Devyn Colon MD Consult Allergies and Home Medications Allergies Coded Allergies: Penicillins (Unverified Allergy, Severe, HIVES, THROAT SWELLS, DIFFICULTY BREATHING, 02/10/07) doxycycline (Unverified Allergy, Severe, DIFFICULTY BREATHING, HIVES, THROAT SWELLS, 02/10/07) hydrocodone (Verified Allergy, Intermediate, "MAKES HER FEEL VERY BAD", 12/15/15) latex (Verified Allergy, Mild, RASH, 11/07/15) Cephalosporins (Unverified Allergy, Unknown, 12/16/15) celecoxib (Unverified Allergy, Unknown, 11/08/15) Uncoded Allergies: TAPE (Adverse Reaction, Mild, RASH, WHELPS ON SKIN WHERE TAPE WAS., 02/10/07 ) Home Medications Alprazolam 0.5 Mg Tablet, 0.5 MG PO BID PRN for ANXIETY, (Reported) Metformin HCl 500 Mg Tab.er.24h, 500 MG PO BID, (Reported) Propranolol HCl 40 Mg Tablet, 40 MG PO HS, (Reported) Sertraline HCl 50 Mg Tablet, 50 MG PO DAILY, #30 Ref 6 Prescribed by: DEVYN COLON on 12/02/16 0905 Triamterene/Hydrochlorothiazid 1 Each Capsule, 1 EACH PO HS, (Reported) Past Efzkjcx-Owclop-Yuytno Hx Patient Social History Marrital Status: Alcohol Use: Denies Use Recreational Drug Use: No Smoking Status: Never a Smoker 2nd Hand Smoke Exposure: No Physical Abuse Screen: No Sexual Abuse: No Recent Foreign Travel: No Contact w/other who traveled: No Recent Hopitalizations: No Recent Infectious Disease Expo: No Immunizations Up To Date Date of Pneumonia Vaccine: Feb 13, 2010 Seasonal Allergies Seasonal Allergies: Yes Surgeries HX Surgeries: Yes (SURGERY ON BOILS , HEMORHHOIDECTOMY, TUMOR REMOVED FROM L KIDNEY) Surgeries: Bladder Surgery, Section, Gallbladder, Hysterectomy Respiratory Hx Respiratory Disorders: Yes (ALLERGY INDUCED ASTHMA) Cardiovascular Hx Cardiovascular Disorders: Yes Cardiac Disorders: Hypertension Neurological Hx Neurological Disorders: No 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 System Hx 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 Disorders: No Sexually Transmitted Disease: No Genitourinary Hx Genitourinary Disorders: Yes (CANCEROUS TUMOR REMOVED FROM KIDNEY) Gastrointestinal Hx Gastrointestinal Disorders: Yes (Fatty Liver Disease, UMBILICAL HERNIA) Gastrointestinal Disorders: Polyps, Ulcer Musculoskeletal Hx Musculoskeletal Disorders: Yes (STENOSIS IN LOWER BACK, OSTEOARTHRITIS, DJD) Musculoskeletal Disorders: Degenerate Disk Disease, Arthritis, Fractures Endocrine Hx Endocrine Disorders: Yes Endocrine Disorders: Hypothyroidsim, Diabetes, Non-Insulin dep HEENT HX ENT Disorders: No Cancer Hx Cancer: Yes (CANCEROUS TUMOR KIDNEY) Psychosocial Hx Psychiatric Problems: Yes (PANIC ATTACKS ) Behavioral Health Disorders: Anxiety Integumentary HX Skin/Integumentary Disorder: No Blood Transfusions Hx Blood Disorders: No Reviewed Nursing Assessment Reviewed/Agree w Nursing PMH: Yes Family Medical History Significant Family History: No Pertinent Family Hx Family Hx: Cardiovascular disease 19 FATHER, Onset:Unknown Completed stroke 19 FATHER, Onset:Unknown Congenital heart disease Dementia 19 FATHER, Onset:Unknown Diabetes mellitus 19 FATHER, Onset:Unknown FH: COPD (chronic obstructive pulmonary disease) 19 MOTHER, Onset:Unknown Hypertension 19 FATHER, Onset:Unknown Myocardial infarction 19 FATHER, Onset:Unknown Thyroid disease 19 MOTHER, Onset:Unknown Review of Systems Review of Systems General: No Chills, No Night Sweats HEENT: No Head Aches, No Visual Changes, No Eye Pain Pulmonary: No Dyspnea, No Cough Cardiovascular: Chest Pain, No: Palpitations Gastrointestinal: No: Abdominal Pain, Nausea, Vomiting Genitourinary: No Dysuria, No Frequency Musculoskeletal: No: neck pain, shoulder pain Neurological: No: Weakness All Other Systems Reviewed All Other Systems Reviewed: Yes Physical Exam Vital Signs Vital Sign - Last 12Hours Capillary Refill : Less Than 3 Seconds 159/85 98.2F pulse 89 RR 20 pulse ox 96% General Appearance: No Apparent Distress, WD/WN, Anxious HEENT: PERRL/EOMI Neck: Full Range of Motion, Non Tender, Supple Respiratory: Chest Non Tender, Lungs Clear, Normal Breath Sounds, No Accessory Muscle Use, No Respiratory Distress Cardiovascular: Regular Rate, Rhythm, No Edema Gastrointestinal: Normal Bowel Sounds Rectal: Deferred Back: Normal Inspection, No CVA Tenderness Extremity: Normal Inspection, Normal Range of Motion, Non Tender Neurologic/Psychiatric: Alert, Oriented x3, No Motor/Sensory Deficits, Other ( anxious) Skin: Normal Color, Warm/Dry Lymphatic: No Adenopathy Assessment/Plan Assessment/Plan Assessment/Plan malignant hypertension- resolved chest discomfort due to anxiety- improved anxiety - has xanax for breakthrough anxiety. diabetes mellitus II- controlled leukocytosis- resolved hypokalemia- Plan- discussion undertaken with pt regarding her mood and anxiety and the role it played in her admission causing her chest discomfort and elevated blood pressure. Started pt on zoloft- pt was feeling better on day of discharge and was stable to return home and work following the weekend. No need for further cardiac workup at this time, nor did we need to change her blood pressure management. She will follow up in 2 weeks at [facility]. Problems: Admission Dx malignant hypertension chest discomfort anxiety diabetes mellitus II leukocytosis Final Diagnosis malignant hypertension- resolved chest discomfort due to anxiety- improved anxiety - diabetes mellitus II- controlled leukocytosis- resolved hypokalemia- Clinical Quality Measures AMI/AHF: ASA po Prior to arrival: No DVT/VTE Risk/Contraindication: Risk Factor Score Per Nursin RFS Level Per Nursing on Admit: 1=Low/No VTE PPX DEVYN COLON MD Dec 02, 2016 08:20
[2016-12-02] MEDS ORDERED: ASPIRIN E.C. 325 MG (ECOTRIN) TABLET PO SCH (09:00)
--- NOTE | 2016-12-02 09:04 | Discharge Inst-Simple/Standard ---
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 Pneu Vac Indicated: Yes KENDAL COLON MD Dec 02, 2016 09:04
[2016-12-02] MEDS ORDERED: SERT50TA2 PO (09:05)
--- OUTSIDE RECORDS SUMMARY | 2016-12-09 02:09 | XMS REPORT | Continuity of Care Document ---
Author Author [facility] Organization [facility] Address Unknown Phone Unavailable Allergies Active Description Code Type Severity Reaction Onset Reported/Identified Relationship to Patient Clinical Status Yes doxycycline [id number] Drug Allergy Severe DIFFICULTY HOLA 02/10/2007 Yes Penicillins [id number] Drug Allergy Severe HIVES, THROAT S 02/10/2007 Yes TAPE TAPE Mild RASH, WHELPS ON 02/10/2007 Yes latex [id number] Drug Allergy Mild RASH 11/07/2015 Yes celecoxib [id number] Drug Allergy Unknown N/A 11/08/2015 Yes hydrocodone [id number] Drug Allergy Moderate "MAKES HER FEEL 12/15/2015 Yes Cephalosporins [id number] Drug Allergy Unknown N/A 12/16/2015 Medications Problems [...] ANALIA WOLF, TOD Marcial Ot 272.4 04/24/2014 TOD HELMS MD Ot 571.8 04/24/2014 TOD HELMS MD Ot [...] WOLF, TOD J Ot 244.9 11/26/2014 ANALIA WOFL, TOD J Ot 250.00 11/26/2014 ANALIA WOLF, [...] TOD J Ot 790.5 11/28/2014 ANALIA WOLF, WOLBACH J Ot 790.99 11/28/2014 ANALIA WOLF, TOD [...] WOLF, TOD J Ot 250.00 12/10/2014 ANALIA WOFL, TOD J Ot 272.4 12/10/2014 ANALIA WOLF, [...] UNSPECIFIED 11/08/2015 BARRY HENNING DO Ot 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 11/27/2015 JOSH FARIAS MD Ot E66.09 OTHER OBESITY DUE TO EXCESS CALORIES 11/27/2015 JOSH FARIAS MD Ot M51.16 INTERVERTEBRAL DISC [...] ENCOUNTER FOR OTHER PREPROCEDURAL EXAMIN 12/21/2015 LI GENOA DO Ot Z86.010 PERSONAL HISTORY OF COLONIC POLYPS 12/26/2015 LI GENAO DO Ot K62.1 RECTAL POLYP 12/26/2015 LI GENAO DO Ot K63.5 POLYP OF COLON 12/26/2015 LI GENAO DO Ot Z12.11 ENCOUNTER FOR SCREENING FOR MALIGNANT NE 07/05/2016 Ot 789.03 ABDOMINAL PAIN, RIGHT LOWER QUADRANT 07/05/2016 Ot 789.03 ABDOMINAL PAIN, RIGHT LOWER QUADRANT 10/18/2016 Ot J18.9 PNEUMONIA, UNSPECIFIED ORGANISM 10/18/2016 HOLA MUNSON COMPUTING MACHINE OPERATOR Ot Z12.31 ENCNTR SCREEN MAMMOGRAM FOR MALIGNANT NE 10/20/2016 Ot J18.9 PNEUMONIA, UNSPECIFIED ORGANISM 10/20/2016 HOLA MUNSON COMPUTING MACHINE OPERATOR Ot Z12.31 ENCNTR SCREEN MAMMOGRAM FOR MALIGNANT NE 10/20/2016 Ot J18.9 PNEUMONIA, UNSPECIFIED ORGANISM 10/20/2016 HOLA MUNSON COMPUTING MACHINE OPERATOR Ot Z12.31 ENCNTR SCREEN MAMMOGRAM FOR MALIGNANT NE 10/21/2016 Ot J18.9 PNEUMONIA, UNSPECIFIED ORGANISM 10/21/2016 HOLA MUNSON COMPUTING MACHINE OPERATOR Ot Z12.31 ENCNTR SCREEN MAMMOGRAM FOR MALIGNANT NE 11/02/2016 Ot J18.9 PNEUMONIA, UNSPECIFIED ORGANISM 11/02/2016 HOLA MUNSON COMPUTING MACHINE OPERATOR Ot Z12.31 ENCNTR SCREEN MAMMOGRAM FOR MALIGNANT NE 11/03/2016 LI GENAO DO Ot E11.9 TYPE 2 DIABETES MELLITUS WITHOUT COMPLIC 11/03/2016 LI GENAO DO Ot E66.01 MORBID (SEVERE) OBESITY DUE TO EXCESS CA 11/03/2016 LI GENAO DO Ot E78.5 HYPERLIPIDEMIA, UNSPECIFIED 11/03/2016 LI GENAO DO Ot I10 ESSENTIAL (PRIMARY) HYPERTENSION 11/03/2016 LI GENAO DO Ot Z09 ENCNTR FOR F/U EXAM AFT TRTMT FOR COND O 11/03/2016 LI GENAO DO Ot Z68.43 BODY MASS INDEX (BMI) 50-59.9 , ADULT 11/03/2016 LI GENAO DO Ot Z79.84 [facility] (CURRENT) USE OF ORAL HYPOGLYC 11/03/2016 LI GENAO DO Ot 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.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 11/03/2016 LI GENAO DO Ot Z86.010 PERSONAL HISTORY OF COLONIC POLYPS 11/03/2016 LI GENAO DO Ot Z01.818 ENCOUNTER FOR OTHER PREPROCEDURAL EXAMIN 11/03/2016 LI GENAO DO Ot Z86.010 PERSONAL HISTORY OF COLONIC POLYPS 12/02/2016 KENDAL COLON MD Ot E11.9 TYPE 2 DIABETES MELLITUS WITHOUT COMPLIC 12/02/2016 KENDAL COLON MD, Ot F41.9 ANXIETY DISORDER, UNSPECIFIED 12/02/2016 KENDAL COLON MD Ot I10 ESSENTIAL (PRIMARY) HYPERTENSION 12/02/2016 KENDAL COLON MD Ot R07.89 OTHER CHEST PAIN 12/02/2016 KENDAL COLON MD Ot 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 12/02/2016 KENDAL COLON MD Ot Z79.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 12/02/2016 KENDAL COLON MD Ot Z85.528 PERSONAL HISTORY OF OTHER MALIGNANT NEOP 12/02/2016 KENDAL COLON MD, Ot E11.9 TYPE 2 DIABETES MELLITUS WITHOUT COMPLIC 12/02/2016 KENDAL COLON MD, Ot F41.9 ANXIETY DISORDER, UNSPECIFIED 12/02/2016 KENDAL COLON MD Ot I10 ESSENTIAL (PRIMARY) HYPERTENSION 12/02/2016 KENDAL COLON MD Ot R07.89 OTHER CHEST PAIN 12/02/2016 KENDAL COLON MD Ot Z79.84 [facility] (CURRENT) USE OF ORAL HYPOGLYC 12/02/2016 KENDAL COLON MD Ot Z79.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 12/02/2016 KENDAL COLON MD Ot Z85.528 PERSONAL HISTORY OF OTHER MALIGNANT NEOP Procedures Results Test Result Range Complete blood count (CBC) with automated white blood cell (WBC) differential - 12/01/16 19:00 Blood leukocytes automated count (number/volume) 14.0 10*3/ uL 4.3-11.0 Blood erythrocytes automated count (number/volume) 4.76 10*6 /uL 4.35-5.85 Venous blood hemoglobin measurement (mass/volume) 13.2 g/dL 11.5-16.0 Blood hematocrit (volume fraction) 41 % 35-52 Automated erythrocyte mean corpuscular volume 85 [foz_us] 80-99 Automated erythrocyte mean corpuscular hemoglobin (mass per erythrocyte) 28 pg 25-34 Automated erythrocyte mean corpuscular hemoglobin concentration measurement ( mass/volume) 33 g/dL 32-36 Automated erythrocyte distribution width ratio 14.0 % 10.0-14.5 Automated blood platelet count (count/volume) 285 10*3/uL 130-400 Automated blood platelet mean volume measurement 12.0 [foz_ us] 7.4-10.4 Automated blood neutrophils/100 leukocytes 60 % 42-75 Automated blood lymphocytes/100 leukocytes 27 % 12-44 Blood monocytes/100 leukocytes 11 % 0-12 Automated blood eosinophils/100 leukocytes 2 % 0-10 Automated blood basophils/100 leukocytes 0 % 0-10 Blood neutrophils automated count (number/volume) 8.3 10*3 1.8-7.8 Blood lymphocytes automated count (number/volume) 3.8 10*3 1.0-4.0 Blood monocytes automated count (number/volume) 1.5 10*3 0.0-1.0 Automated eosinophil count 0.3 10*3/uL 0.0-0.3 Automated blood basophil count (count/volume) 0.0 10*3/uL 0.0-0.1 PT panel in platelet poor plasma by coagulation assay - 12/01/16 19:00 Prothrombin time (PT) in platelet poor plasma by coagulation assay 12.2 s 12.2-14.7 INR in platelet poor plasma or blood by coagulation assay 0.9 0.8-1.4 Activated partial thromboplastin time (aPTT) in platelet poor plasma bycoagulation assay - 12/01/16 19:00 Activated partial thromboplastin time (aPTT) in platelet poor plasma bycoagulation assay 27 s 24-35 Comprehensive metabolic panel - 12/01/16 19:00 Serum or plasma sodium measurement (moles/volume) 140 mmol/ L 135-145 Serum or plasma potassium measurement (moles/volume) 3.6 mmol/L 3.6-5.0 Serum or plasma chloride measurement (moles/volume) 102 mmol /L 98-107 Carbon dioxide 24 mmol/L 21-32 Serum or plasma anion gap determination (moles/volume) 14 mmol/L 5-14 Serum or plasma urea nitrogen measurement (mass/volume) 21 mg/dL 7-18 Serum or plasma creatinine measurement (mass/volume) 1.11 mg /dL 0.60-1.30 Serum or plasma urea nitrogen/creatinine mass ratio 19 NRG Serum or plasma creatinine measurement with calculation of estimated glomerular filtration rate 51 NRG Serum or plasma glucose measurement (mass/volume) 106 mg/dL 70-105 Serum or plasma calcium measurement (mass/volume) 10.5 mg/ dL 8.5-10.1 Serum or plasma total bilirubin measurement (mass/volume) 0.5 mg/dL 0.1-1.0 Serum or plasma alkaline phosphatase measurement (enzymatic activity/volume) 79 U/L 40-136 Serum or plasma aspartate aminotransferase measurement (enzymatic activity/ volume) 64 U/L 5-34 Serum or plasma alanine aminotransferase measurement (enzymatic activity/volume ) 81 U/L 0-55 Serum or plasma protein measurement (mass/volume) 7.8 g/dL 6.4-8.2 Serum or plasma albumin measurement (mass/volume) 4.0 g/dL 3.2-4.5 Magnesium - 12/01/16 19:00 Magnesium 1.8 mg/dL 1.8-2.4 Serum or plasma troponin i.cardiac measurement (mass/volume) - 12/01/16 19:00 Serum or plasma troponin i.cardiac measurement (mass/volume) < ng/mL <0.30 Myoglobin, serum - 12/01/16 19:00 Myoglobin, serum 49.6 ng/mL 10.0-92.0 Fibrin D-dimer FEU measurement in platelet poor plasma (mass/volume) - 19:00 Fibrin D-dimer FEU measurement in platelet poor plasma (mass/volume) 0.52 ug/mL 0.00-0.49 Serum or plasma troponin i.cardiac measurement (mass/volume) - 12/01/16 22:21 Serum or plasma troponin i.cardiac measurement (mass/volume) < ng/mL <0.30 Serum or plasma troponin i.cardiac measurement (mass/volume) - 12/02/16 02:02 Serum or plasma troponin i.cardiac measurement (mass/volume) < ng/mL <0.30 Capillary blood glucose measurement by glucometer (mass/volume) - 12/02/16 04: 32 Capillary blood glucose measurement by glucometer (mass/volume) 114 mg/dL 70-110 Complete blood count (CBC) with automated white blood cell (WBC) differential - 12/02/16 05:04 Blood leukocytes automated count (number/volume) 9.0 10*3/ uL 4.3-11.0 Blood erythrocytes automated count (number/volume) 4.18 10*6 /uL 4.35-5.85 Venous blood hemoglobin measurement (mass/volume) 11.6 g/dL 11.5-16.0 Blood hematocrit (volume fraction) 36 % 35-52 Automated erythrocyte mean corpuscular volume 85 [foz_us] 80-99 Automated erythrocyte mean corpuscular hemoglobin (mass per erythrocyte) 28 pg 25-34 Automated erythrocyte mean corpuscular hemoglobin concentration measurement ( mass/volume) 33 g/dL 32-36 Automated erythrocyte distribution width ratio 13.9 % 10.0-14.5 Automated blood platelet count (count/volume) 240 10*3/uL 130-400 Automated blood platelet mean volume measurement 11.7 [foz_ us] 7.4-10.4 Automated blood neutrophils/100 leukocytes 54 % 42-75 Automated blood lymphocytes/100 leukocytes 31 % 12-44 Blood monocytes/100 leukocytes 12 % 0-12 Automated blood eosinophils/100 leukocytes 3 % 0-10 Automated blood basophils/100 leukocytes 0 % 0-10 Blood neutrophils automated count (number/volume) 4.8 10*3 1.8-7.8 Blood lymphocytes automated count (number/volume) 2.8 10*3 1.0-4.0 Blood monocytes automated count (number/volume) 1.1 10*3 0.0-1.0 Automated eosinophil count 0.3 10*3/uL 0.0-0.3 Automated blood basophil count (count/volume) 0.0 10*3/uL 0.0-0.1 Comprehensive metabolic panel - 12/02/16 05:04 Serum or plasma sodium measurement (moles/volume) 138 mmol/ L 135-145 Serum or plasma potassium measurement (moles/volume) 3.2 mmol/L 3.6-5.0 Serum or plasma chloride measurement (moles/volume) 102 mmol /L 98-107 Carbon dioxide 23 mmol/L 21-32 Serum or plasma anion gap determination (moles/volume) 13 mmol/L 5-14 Serum or plasma urea nitrogen measurement (mass/volume) 19 mg/dL 7-18 Serum or plasma creatinine measurement (mass/volume) 0.95 mg /dL 0.60-1.30 Serum or plasma urea nitrogen/creatinine mass ratio 20 NRG Serum or plasma creatinine measurement with calculation of estimated glomerular filtration rate > NRG Serum or plasma glucose measurement (mass/volume) 115 mg/dL 70-105 Serum or plasma calcium measurement (mass/volume) 9.7 mg/dL 8.5-10.1 Serum or plasma total bilirubin measurement (mass/volume) 0.5 mg/dL 0.1-1.0 Serum or plasma alkaline phosphatase measurement (enzymatic activity/volume) 72 U/L 40-136 Serum or plasma aspartate aminotransferase measurement (enzymatic activity/ volume) 46 U/L 5-34 Serum or plasma alanine aminotransferase measurement (enzymatic activity/volume ) 63 U/L 0-55 Serum or plasma protein measurement (mass/volume) 6.6 g/dL 6.4-8.2 Serum or plasma albumin measurement (mass/volume) 3.4 g/dL 3.2-4.5 Myoglobin, serum - 12/02/16 05:04 Myoglobin, serum 49.5 ng/mL 10.0-92.0 Lipid 1996 panel - 12/02/16 05:04 Serum or plasma triglyceride measurement (mass/volume) 110 mg/dL <150 Serum or plasma cholesterol measurement (mass/volume) 181 mg /dL < 200 Serum or plasma cholesterol in HDL measurement (mass/volume) 35 mg/dL 40-60 Cholesterol in LDL [mass/volume] in serum or plasma by direct assay 140 mg/dL 1-129 Serum or plasma cholesterol in VLDL measurement (mass/volume) 22 mg/dL 5-40 Encounters ACCT No. Visit Date/Time Discharge Status Pt. Type Provider Facility Loc./Unit Complaint [id number] 12/01/2016 23:30:00 2016 10:53:00 DIS Inpatient KENDAL COLON MD [facility] 4TH MALIGNANT HTN,CHEST PAIN,ANXIETY [id number] 11/02/2016 08:54:00 2016 10:41:00 DIS Outpatient LI GENAO DO [facility] ENDO HX POLYPS [id number] 10/29/2016 05:42:00 2016 13:22:00 DIS Outpatient LI GENAO DO [facility] PREOP COLONOSCOPY [id number] 12/16/2015 09:53:00 2015 13:50:00 DIS Outpatient LI GENAO DO [facility] SDC HISTORY OF POLYPS [id number] 12/15/2015 08:30:00 2015 08:51:00 DIS Outpatient LI GENAO DO [facility] PREOP HISTORY OF POLYPS [id number] 11/07/2015 23:27:00 2015 01:59:00 DIS Emergency MILADY VILCHISBARRY [facility] ER HIGH BLOOD SUGAR [id number] 11/07/2015 07:25:00 2015 08:22:00 DIS Outpatient JOSH FARIAS MD [facility] CARD DISC DISORDER / RADICULOPATHY, LUMBAR [id number] 04/17/2015 15:44:00 2014 00:01:00 DIS Outpatient TOD HELMS MD [facility] REHAB [id number] 02/24/2015 10:36:00 2014 23:59:59 CLS Outpatient TOD HELMS MD [facility] RAD [id number] 02/10/2015 15:41:00 2014 00:01:00 DIS Outpatient TOD HELMS MD [facility] REHAB LOW BACK PAIN;DDD [id number] 12/15/2014 06:15:00 2014 00:01:00 DIS Outpatient TOD HELMS MD [facility] LAB [id number] 12/10/2014 13:58:00 2014 23:59:59 CLS Outpatient TOD HELMS MD [facility] LAB [id number] 11/26/2014 08:30:00 2014 13:00:00 DIS Outpatient TOD HELMS MD [facility] LAB [id number] 04/24/2014 07:33:00 2013 23:59:59 CLS Outpatient TOD HELMS MD [facility] RAD [id number] 01/17/2014 06:44:00 2013 23:59:59 CLS Outpatient TOD HELMS MD [facility] LAB [id number] 04/11/2013 08:53:00 2012 23:59:59 CLS Outpatient TOD HELMS MD [facility] RAD [id number] 10/06/2012 09:43:00 2012 23:59:59 CLS Outpatient TOD HELMS MD [facility] LAB [id number] 10/21/2016 10:00:00 PEN Preadmit KENDAL COLON MD [facility] RAD ROUTINE/SCREENING [id number] 12/09/2015 15:18:00 ACT Outpatient HOLA MUNSON [facility] RAD SCREENING [id number] 09/13/2015 14:49:00 ACT Outpatient TOD HELMS MD [facility] RAD [id number] 06/12/2015 11:48:00 Document Registration [id number] 05/16/2015 00:17:00 PEN Preadmit TOD HELMS MD [facility] REHAB [id number] 07/15/2014 13:23:00 Document Registration [id number] 04/05/2012 20:38:00 Document Registration [id number] 03/21/2012 11:00:00 Document Registration [id number] 02/09/2012 00:00:00 Document Registration [id number] 04/02/2011 11:47:00 Document Registration
--- OUTSIDE RECORDS SUMMARY | 2016-12-09 02:24 | XMS REPORT | Continuity of Care Document ---
Author Author [facility] Organization [facility] Address Unknown Phone Unavailable Allergies Active Description Code Type Severity Reaction Onset Reported/Identified Relationship to Patient Clinical Status Yes doxycycline [id number] Drug Allergy Severe DIFFICULTY HOLA 02/10/2007 Yes Penicillins [id number] Drug Allergy Severe HIVES, THROAT S 02/10/2007 Yes TAPE TAPE Mild RASH, WHELPS ON 02/10/2007 Yes latex [id number] Drug Allergy Mild RASH 11/07/2015 Yes celecoxib [id number] Drug Allergy Unknown N/A 11/08/2015 Yes hydrocodone [id number] Drug Allergy Moderate "MAKES HER FEEL 12/15/2015 Yes Cephalosporins [id number] Drug Allergy Unknown N/A 12/16/2015 Medications Problems [...] 04/24/2014 TOD HELMS MD Ot 790.5 04/24/2014 TDO HELMS MD Ot 790.99 04/24/2014 ANALIA WOLF, [...] 786.50 11/26/2014 Ot 789.01 11/26/2014 ANALIA WOLF, OTD J Ot 244.9 11/26/2014 ANALIA WOLF, TOD [...] TOD J Ot 790.5 11/28/2014 ANALIA WOLF, [place] J Ot 790.99 11/28/2014 ANALIA WOLF, TOD [...] UNSPECIFIED 11/08/2015 BARRY HENNING DO Ot 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 11/27/2015 JOSH FARIAS [...] J18.9 PNEUMONIA, UNSPECIFIED ORGANISM 10/18/[address] SAFETY ENGINEER Ot Z12.31 ENCNTR SCREEN MAMMOGRAM FOR MALIGNANT NE 10/20/2016 Ot J18.9 PNEUMONIA, UNSPECIFIED ORGANISM 10/20/[address] SAFETY ENGINEER Ot Z12.31 ENCNTR SCREEN MAMMOGRAM FOR MALIGNANT NE 10/20/2016 Ot J18.9 PNEUMONIA, UNSPECIFIED ORGANISM 10/20/[address] SAFETY ENGINEER Ot Z12.31 ENCNTR SCREEN MAMMOGRAM FOR MALIGNANT NE 10/21/2016 Ot J18.9 PNEUMONIA, UNSPECIFIED ORGANISM 10/21/[address] SAFETY ENGINEER Ot Z12.31 ENCNTR SCREEN MAMMOGRAM FOR MALIGNANT NE 11/02/2016 Ot J18.9 PNEUMONIA, UNSPECIFIED ORGANISM 11/02/[address] SAFETY ENGINEER Ot Z12.31 ENCNTR SCREEN MAMMOGRAM FOR MALIGNANT [...] AFT TRTMT FOR COND O 11/03/2016 LI GENOA DO Ot Z68.43 BODY MASS INDEX (BMI) 50-59.9 , ADULT 11/03/2016 LI GENAO DO Ot Z79.84 MCC (CURRENT) USE OF ORAL HYPOGLYC 11/03/2016 LI GENAO DO Ot Z79.899 OTHER SECURITY ADVISOR (CURRENT) DRUG THERAPY 11/03/2016 LI GENAO DO [...] PAIN 12/02/2016 KENDAL COLON MD Ot Z79.84 SECURITY ADVISOR (CURRENT) USE OF ORAL HYPOGLYC 12/02/2016 KENDAL COLON MD Ot Z79.899 OTHER SECURITY ADVISOR (CURRENT) DRUG THERAPY 12/02/2016 KENDAL COLON MD Ot Z85.528 PERSONAL HISTORY OF OTHER MALIGNANT NEOP 12/02/2016 KENDAL COLON MD, Ot E11.9 TYPE 2 DIABETES MELLITUS WITHOUT COMPLIC 12/02/2016 KENDAL COLON MD, Ot F41.9 ANXIETY DISORDER, UNSPECIFIED 12/02/2016 KENDAL COLON MD Ot I10 ESSENTIAL (PRIMARY) HYPERTENSION 12/02/2016 KENDAL COLON MD Ot R07.89 OTHER CHEST PAIN 12/02/2016 KENDAL COLON MD Ot Z79.84 MCC (CURRENT) USE OF ORAL HYPOGLYC 12/02/2016 KENDAL COLON MD Ot Z79.899 OTHER SECURITY ADVISOR (CURRENT) DRUG THERAPY 12/02/2016 KENDAL COLON MD [...] Status Pt. Type Provider Facility Loc./Unit Complaint [id number] 12/01/2016 23:30:00 2016 10:53:00 DIS Inpatient KENDAL COLON MD [facility] 4TH MALIGNANT HTN,CHEST PAIN,ANXIETY [id number] 11/02/2016 08:54:00 2016 10:41:00 DIS Outpatient LI GENAO DO [facility] ENDO HX POLYPS [id number] 10/29/2016 05:42:00 2016 13:22:00 DIS Outpatient LI GENAO DO [facility] PREOP COLONOSCOPY [id number] 12/16/2015 09:53:00 2015 13:50:00 DIS Outpatient LI GENAO DO [facility] SDC HISTORY OF POLYPS [id number] 12/15/2015 08:30:00 2015 08:51:00 DIS Outpatient LI GENAO DO [facility] PREOP HISTORY OF POLYPS [id number] 11/07/2015 23:27:00 2015 01:59:00 DIS Emergency MILADY VILCHISBARRY [facility] ER HIGH BLOOD SUGAR [id number] 11/07/2015 07:25:00 2015 08:22:00 DIS Outpatient JOSH FARIAS MD [facility] CARD DISC DISORDER / RADICULOPATHY, LUMBAR [id number] 04/17/2015 15:44:00 2014 00:01:00 DIS Outpatient TOD HELMS MD [facility] REHAB [id number] 02/24/2015 10:36:00 2014 23:59:59 CLS Outpatient TOD HELMS MD [facility] RAD [id number] 02/10/2015 15:41:00 2014 00:01:00 DIS Outpatient TOD HELMS MD [facility] REHAB LOW BACK PAIN;DDD [id number] 12/15/2014 06:15:00 2014 00:01:00 DIS Outpatient TOD HELMS MD [facility] LAB [id number] 12/10/2014 13:58:00 2014 23:59:59 CLS Outpatient TOD HELMS MD [facility] LAB [id number] 11/26/2014 08:30:00 2014 13:00:00 DIS Outpatient TOD HELMS MD [facility] LAB [id number] 04/24/2014 07:33:00 2013 23:59:59 CLS Outpatient TOD HELMS MD [facility] RAD [id number] 01/17/2014 06:44:00 2013 23:59:59 CLS Outpatient TOD HELMS MD [facility] LAB [id number] 04/11/2013 08:53:00 2012 23:59:59 CLS Outpatient TOD HELMS MD [facility] RAD [id number] 10/06/2012 09:43:00 2012 23:59:59 CLS Outpatient TOD HELMS MD [facility] LAB [id number] 10/21/2016 10:00:00 PEN Preadmit KENDAL COLON MD [facility] RAD ROUTINE/SCREENING [id number] 12/09/2015 15:18:00 ACT Outpatient HOLA MUNSON [facility] RAD SCREENING [id number] 09/13/2015 14:49:00 ACT Outpatient TOD HELMS MD [facility] RAD [id number] 06/12/2015 11:48:00 Document Registration [id number] 05/16/2015 00:17:00 PEN Preadmit TOD HELMS MD [facility] REHAB [id number] 07/15/2014 13:23:00 Document Registration [id number] 04/05/2012 20:38:00 Document Registration [id number] 03/21/2012 11:00:00 Document Registration [id number] 02/09/2012 00:00:00 Document Registration [id number] 04/02/2011 11:47:00 Document Registration
== END 2016-12-02 09:02 | disposition home or self-care (01) ==
LOC: EDUNIT# 19:00 → ER 19:03 → 4TH 19:04 → UNDOADMOB 23:30 → 4TH 23:30 → UNDOADMOB 12-02 00:40 → 4TH 12-02 00:40 → UNDODISOB 12-02 09:02
PROVIDERS: ADMIT Family Medicine; ATTEND Family Medicine
DX: I10 Essential (primary) hypertension (principal); R07.89 Other chest pain; F41.9 Anxiety disorder, unspecified; E11.9 Type 2 diabetes mellitus without complications; Z79.84 Long term (current) use of oral hypoglycemic drugs; Z79.899 Other long term (current) drug therapy; Z85.528 Personal history of other malignant neoplasm of kidney
CPT/HCPCS: 36415; 71010; 80053; 80061; 82962; 83735; 83874; 84484; 85025; 85379; 85610; 85730; 93005; 93041; 94640; 94760; 96374; 96375; G0378

== ENCOUNTER → 2016-12-14 | Outpatient (CLI) | payer OTHER ==
[~2016-12-14] MED LIST changes: +SERT50TA2 PO
== END ==
LOC: RAD 09:55
PROVIDERS: ATTEND Family Medicine
DX: Z12.31 Encounter for screening mammogram for malignant neoplasm of breast (principal)
CPT/HCPCS: 77067

== ENCOUNTER → 2017-02-09 | Outpatient (CLI) | payer OTHER ==
[~2017-02-09] MED LIST changes: +IOHEXOL 350 MG/ML 100 ML (OMNIPAQUE 350) VIAL IV ONE; +NS 100 ML (IVPB) BAG IV ONE
[2017-02-09 11:29] LABS: BLOOD UREA NITROGEN 25 MG/DL (7-18); BUN/CREATININE RATIO 28; GFR ESTIMATED > 60
--- NOTE | 2017-02-09 13:30 | Diagnostic Imaging Report ---
PROCEDURE: CT abdomen and pelvis with contrast. TECHNIQUE: Multiple contiguous axial images were obtained through the abdomen and pelvis after administration of intravenous contrast. INDICATION: Rectal pain, right buttocks pain. 100 mL of Omnipaque 350 is administered intravenously. FINDINGS: The lung bases appear clear. The liver demonstrates mild diffuse fatty infiltration. There is normal appearance of the spleen, the adrenals, and the pancreas. Cholecystectomy clips are seen. The abdominal aorta is normal in caliber. No para-aortic significantly enlarged lymph nodes seen. The kidneys have symmetric enhancement and excretion. There is suggestion of scarring probably related to prior procedure. Tiny simple cysts are also seen up to 1 cm in the left kidney. No hydronephrosis. There is no bowel obstruction. There is no significant free fluid or fluid collection in the abdomen or pelvis seen. Small fat-containing umbilical hernia is seen. The osseous structures demonstrate mild right convexity scoliotic curvature and prominent degenerative changes with vacuum phenomenon in discs in the mid and lower lumbar spine and in the SI joints. Specifically in the gluteal region on the right side where the patient is complaining of pain, there is no fluid collection or mass identified. The gluteus brian muscle on both sides demonstrate mild atrophy. IMPRESSION: 1. Mild diffuse fatty infiltration in the liver. 2. Small fat-containing umbilical hernia. Dictated by: Dictated on workstation # [id number]
== END ==
LOC: RAD 10:56
PROVIDERS: ATTEND Surgery
DX: K42.9 Umbilical hernia without obstruction or gangrene (principal); K62.89 Other specified diseases of anus and rectum
CPT/HCPCS: 36415; 74177; 82565; 84520

== ENCOUNTER 2017-07-21 16:03 | Outpatient (RCR) | payer OTHER ==
[~2017-07-21 16:03] MED LIST changes: -IOHEXOL 350 MG/ML 100 ML (OMNIPAQUE 350) VIAL IV ONE; -NS 100 ML (IVPB) BAG IV ONE
== END 2017-07-26 | disposition home or self-care (01) ==
PROVIDERS: ATTEND Family Medicine
DX: M25.552 Pain in left hip (principal); R42 Dizziness and giddiness; R53.1 Weakness

== ENCOUNTER → 2017-08-09 | Outpatient (CLI) | payer OTHER ==
--- NOTE | 2017-08-09 17:50 | Diagnostic Imaging Report ---
INDICATION: Hip pain. Five views were obtained. FINDINGS: The alignment is normal. There is no fracture or dislocation. Soft tissues are unremarkable. There are no significant degenerative changes. IMPRESSION: Unremarkable bilateral hips. Dictated by: Dictated on workstation # [id number]
== END ==
LOC: RAD 17:12
PROVIDERS: ATTEND Family Medicine
DX: M25.551 Pain in right hip (principal); M25.552 Pain in left hip
CPT/HCPCS: 73523

== ENCOUNTER 2017-09-30 16:06 | Outpatient (RCR) | payer OTHER ==
[~2017-09-30 16:06] MED LIST changes: -METF500T4 PO; +METF500T5 PO
== END 2017-09-30 16:50 | disposition home or self-care (01) ==
PROVIDERS: ATTEND Family Medicine
DX: M25.552 Pain in left hip (principal); R42 Dizziness and giddiness; R53.1 Weakness

== ENCOUNTER 2017-12-18 15:40 | Emergency (ER) | payer OTHER ==
[~2017-12-18] VITALS: Ht 160 cm; Wt 136.1 kg
[2017-12-18] MEDS ORDERED: NS IV 1000 ML 1,000 ML IV SCH (15:58)
[2017-12-18] MEDS ORDERED: ONDANSETRON 4 MG/2 ML (SDV) Z0FRAN IVP ONE (16:00)
[2017-12-18 16:08] LABS: EOSINOPHILS # (AUTO) 0.2 10^3/uL (0.0-0.3)
--- NOTE | 2017-12-18 16:09 | ED Abdominal Pain ---
General Stated Complaint: LOWER L ABD PAIN Source of Information: Patient, Family (daughter) Exam Limitations: No Limitations History of Present Illness Date Seen by Provider: Dec 18, 2017 Time Seen by Provider: 15:56 Initial Comments Patient presents to the ER by private conveyance with her daughter and a chief complaint that yesterday she was having some uneasy feeling and today started having some nausea this evening with left lower quadrant abdominal pain. She does have a history of diverticulosis. She's never had diverticulitis. She has been constipated for the past several days. She is not been able to pass a stool despite several stool softeners and suppository. She's having some nausea without vomiting. She has had her urinary bladder tact up 23 years ago. She's not having any painful urination but she has had hesitancy of her urine for the past day and a half. She seemed little bit of blood in the stool when she has bowel pass something but she says she also has a history of hemorrhoids. She had a colonoscopy about a year ago for follow-up for polyps 2 years ago and this time was clean. Allergies and Home Medications Allergies Coded Allergies: Penicillins (Unverified Allergy, Severe, HIVES, THROAT SWELLS, DIFFICULTY BREATHING, 02/10/07) doxycycline (Unverified Allergy, Severe, DIFFICULTY BREATHING, HIVES, THROAT SWELLS, 02/10/07) hydrocodone (Verified Allergy, Intermediate, "MAKES HER FEEL VERY BAD", 12/15/15) latex (Verified Allergy, Mild, RASH, 11/07/15) Cephalosporins (Unverified Allergy, Unknown, 12/16/15) celecoxib (Unverified Allergy, Unknown, 11/08/15) Uncoded Allergies: TAPE (Adverse Reaction, Mild, RASH, WHELPS ON SKIN WHERE TAPE WAS., 02/10/07 ) Home Medications Alprazolam 0.5 Mg Tablet, 0.5 MG PO BID PRN for ANXIETY, (Reported) Metformin HCl 500 Mg Tab.er.24h, 500 MG PO BID, (Reported) Propranolol HCl 40 Mg Tablet, 40 MG PO HS, (Reported) Sertraline HCl 50 Mg Tablet, 50 MG PO DAILY Prescribed by: KENDAL COLON on 12/02/16 0905 Triamterene/Hydrochlorothiazid 1 Each Capsule, 1 EACH PO HS, (Reported) Patient Home Medication List Home Medication List Reviewed: Yes Review of Systems Constitutional: No chills, No diaphoresis EENTM: No Blurred Vision, No Double Vision Respiratory: Denies Cough, Denies Shortness of Air Cardiovascular: Denies Chest Pain, Denies Edema Gastrointestinal: Denies Abdomen Distended; Abdominal Pain, Blood Streaked Stools (what little bit she's had) Genitourinary: Denies Burning, Denies Discharge; Frequency (and hesitancy) Musculoskeletal: No back pain, No joint pain Past Krmbmzo-Utiwnn-Oyjvls Hx Patient Social History Alcohol Use: Rarely Uses Alcohol Beverage of Choice: Beer Recreational Drug Use: No Smoking Status: Never a Smoker 2nd Hand Smoke Exposure: No Recent Foreign Travel: No Contact w/Someone Who Travel: No Recent Hopitalizations: No Immunizations Up To Date Date of Pneumonia Vaccine: Feb 13, 2010 Seasonal Allergies Seasonal Allergies: Yes Past Medical History Surgeries: Yes (SURGERY ON BOILS , HEMORRHOIDECTOMY, TUMOR REMOVED FROM L KIDNEY) Bladder Surgery, Section, Gallbladder, Hysterectomy Respiratory: Yes (ALLERGY INDUCED ASTHMA) Asthma, Chronic Bronchitis Currently Using CPAP: No Currently Using BIPAP: No Cardiac: Yes Hypertension Neurological: No 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 Disorders: No 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 Sexually Transmitted Disease: No Gastrointestinal: Yes (Fatty Liver Disease, UMBILICAL HERNIA) Polyps, Ulcer Musculoskeletal: Yes (STENOSIS IN LOWER BACK, OSTEOARTHRITIS, DJD) Degenerate Disk Disease, Arthritis, Fractures Endocrine: Yes Hypothyroidsim, Diabetes, 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) What Type of Treatment Did You: Surgical Intervention Psychosocial: Yes (PANIC ATTACKS ) Anxiety Integumentary: No Blood Disorders: No Family Medical History Cardiovascular disease 19 FATHER, Onset:Unknown Completed stroke 19 FATHER, Onset:Unknown Congenital heart disease Dementia 19 FATHER, Onset:Unknown Diabetes mellitus 19 FATHER, Onset:Unknown FH: COPD (chronic obstructive pulmonary disease) 19 MOTHER, Onset:Unknown Hypertension 19 FATHER, Onset:Unknown Myocardial infarction 19 FATHER, Onset:Unknown Thyroid disease 19 MOTHER, Onset:Unknown No Pertinent Family Hx Physical Exam Vital Signs Vital Signs - First Documented 12/18/17 15:43 Temp 97.6 Pulse 127 Resp 18 B/P (MAP) 154/81 (105) Pulse Ox 98 Capillary Refill : Height/Weight/BMI Height: 5'4.00" Weight: 298lbs. 0.0oz. 135.697914al; 51.2 BMI Method:Stated General Appearance: WD/WN, no apparent distress HEENT: PERRL/EOMI, TMs normal, pharynx normal Neck: non-tender, supple, normal inspection Respiratory: chest non-tender, lungs clear, normal breath sounds, no respiratory distress, no accessory muscle use Cardiovascular: normal peripheral pulses, regular rate, rhythm Peripheral Pulses: 2+ Radial Pulses (R), 2+ Radial Pulses (L) Gastrointestinal: normal bowel sounds, no organomegaly, tenderness (left lower quadrant); No mass; other (difficult exam secondary corpulence) Extremities: normal inspection, normal capillary refill Neurologic/Psychiatric: alert, normal mood/affect, oriented x 3 Skin: normal color, warm/dry Progress/Results/Core Measures Results/Orders Lab Results Laboratory Tests Test 12/18/17 16:00 12/18/17 17:41 Range/Units White Blood Count 15.6 H 4.3-11.0 10^3/uL Red Blood Count 4.39 4.35-5.85 10^6/uL Hemoglobin 12.4 11.5-16.0 G/DL Hematocrit 37 35-52 % Mean Corpuscular Volume 83 80-99 FL Mean Corpuscular Hemoglobin 28 25-34 PG Mean Corpuscular Hemoglobin Concent 34 32-36 G/DL Red Cell Distribution Width 13.0 10.0-14.5 % Platelet Count 251 130-400 10^3/uL Mean Platelet Volume 11.0 H 7.4-10.4 FL Neutrophils (%) (Auto) 88 H 42-75 % Lymphocytes (%) (Auto) 5 L 12-44 % Monocytes (%) (Auto) 6 0-12 % Eosinophils (%) (Auto) 1 0-10 % Basophils (%) (Auto) 0 0-10 % Neutrophils # (Auto) 13.7 H 1.8-7.8 X 10^3 Lymphocytes # (Auto) 0.8 L 1.0-4.0 X 10^3 Monocytes # (Auto) 1.0 0.0-1.0 X 10^3 Eosinophils # (Auto) 0.2 0.0-0.3 10^3/uL Basophils # (Auto) 0.0 0.0-0.1 10^3/uL Neutrophils % (Manual) 87 % Lymphocytes % (Manual) 3 % Monocytes % (Manual) 2 % Eosinophils % (Manual) 2 % Basophils % (Manual) 1 % Band Neutrophils 5 % Blood Morphology Comment NORMAL Sodium Level 134 L 135-145 MMOL/L Potassium Level 4.3 3.6-5.0 MMOL/L Chloride Level 103 98-107 MMOL/L Carbon Dioxide Level 17 L 21-32 MMOL/L Anion Gap 14 5-14 MMOL/L Blood Urea Nitrogen 14 7-18 MG/DL Creatinine 1.17 0.60-1.30 MG/DL Estimat Glomerular Filtration Rate 48 BUN/Creatinine Ratio 12 Glucose Level 165 H 70-105 MG/DL Calcium Level 9.8 8.5-10.1 MG/DL Magnesium Level 1.2 L 1.8-2.4 MG/DL Total Bilirubin 0.7 0.1-1.0 MG/DL Aspartate Amino Transf (AST/SGOT) 91 H 5-34 U/L Alanine Aminotransferase (ALT/SGPT) 94 H 0-55 U/L Alkaline Phosphatase 75 40-136 U/L Total Protein 6.7 6.4-8.2 GM/DL Albumin 3.7 3.2-4.5 GM/DL Lipase 24 8-78 U/L Urine Color YELLOW Urine Clarity VERY CLOUDY H Urine pH 5 5-9 Urine Specific [place] 1.010 L 1.016-1.022 Urine Protein 2+ H NEGATIVE Urine Glucose (UA) NEGATIVE NEGATIVE Urine Ketones NEGATIVE NEGATIVE Urine Nitrite NEGATIVE NEGATIVE Urine Bilirubin NEGATIVE NEGATIVE Urine Urobilinogen NORMAL NORMAL MG/DL Urine Leukocyte Esterase 3+ H NEGATIVE Urine RBC (Auto) 5+ H NEGATIVE Urine RBC 25-50 H /HPF Urine WBC TNTC H /HPF Urine Squamous Epithelial Cells 10-25 H /HPF Urine Crystals NONE /LPF Urine Bacteria FEW H /HPF Urine Casts NONE /LPF Urine Mucus NEGATIVE /LPF Urine Culture Indicated YES My Orders Orders - GEOVANNY BRISCOE Ct Abdomen/Pelvis W (12/18/17 15:58) Saline Lock/Iv-Start (12/18/17 15:58) Cbc With Automated Diff (12/18/17 15:58) Comprehensive Metabolic Panel (12/18/17 15:58) Lipase (12/18/17 15:58) Magnesium (12/18/17 15:58) Ua Culture If Indicated (12/18/17 15:58) Saline Lock/Iv-Start (12/18/17 15:58) Ns Iv 1000 Ml (Sodium Chloride 0.9%) (12/18/17 15:58) Ondansetron Injection (Zofran Injectio (12/18/17 16:00) Manual Differential (12/18/17 16:00) Iohexol Injection (Omnipaque 350 Mg/Ml 1 (12/18/17 17:45) Sodium Chloride Flush (Catheter Flush Sy (12/18/17 17:45) Ns (Ivpb) (Sodium Chloride 0.9%) (12/18/17 17:45) Pharmacy Communication (Pharmacy Communi (12/18/17 17:31) Urine Culture (12/18/17 17:41) Medications Given in ED Current Medications Medications Dose Ordered Sig/Raheem Route Start Time Stop Time Status Last Admin Dose Admin Iohexol 100 ml ONCE ONCE IV 12/18/17 17:45 12/18/17 17:46 DC 12/18/17 17:33 75 ML Ondansetron HCl 4 mg ONCE ONCE IVP 12/18/17 16:00 12/18/17 16:04 DC 12/18/17 16:16 4 MG Sodium Chloride 10 ml NEEDED PRN IV 12/18/17 17:45 12/18/17 17:33 10 ML Sodium Chloride 250 ml ONCE ONCE IV 12/18/17 17:45 12/18/17 17:46 DC 12/18/17 17:33 80 ML Vital Signs/I&O 12/18/17 15:43 Temp 97.6 Pulse 127 Resp 18 B/P (MAP) 154/81 (105) Pulse Ox 98 Progress Progress Note #1: Time: 16:11 Progress Note Since suspect bowel obstruction versus diverticulitis versus general colitis Vs Gyne, Vs renal stone Vs UTI. We'll obtain a CT scan with contrast, labs and give her some nausea medicine and fluids. She is declining any pain medicine at this time. She does not like taking opiates and she is already taking NSAIDs daily. Progress Note #2: Time: 18:12 Progress Note Modestly elevated white count and mild hypomagnesemia probably secondary to her nausea. Urine shows contamination versus infection with possible evidence of stone given the high red blood cell count. She has allergies to cephalosporins penicillins doxycycline so we will put her on ciprofloxacin and have her follow up outpatient and follow the culture. Diagnostic Imaging Diagonstic Imaging: CT Plain Films/CT/US/NM/MRI: abdomen, pelvis (with contrast) Comments VIA [facility]. [place], [place] NAME: JESSICA LONGO [facility] REC#: [id number] PT STATUS: REG ER : 1965 PHYSICIAN: GEOVANNY BRISCOE MD ADMIT DATE: 12/18/17/ER Draft Date of Exam:12/18/17 CT ABDOMEN/PELVIS W PROCEDURE: CT abdomen and pelvis with contrast. TECHNIQUE: Multiple contiguous axial images were obtained through the abdomen and pelvis after administration of intravenous contrast. INDICATION: Nausea, left lower quadrant pain, constipation. History of IBS and diverticulosis, bladder surgery, hysterectomy, cholecystectomy, rectal wall reconstruction. History of left kidney cancer. COMPARISON: 02/09/2017 FINDINGS: The lung bases are clear. The heart is normal in size. No focal hepatic lesions are seen. Cholecystectomy clips are noted. The spleen appears normal. The pancreas is normal. The adrenal glands appear normal. There is an obstructing 4 mm calculus in the distal left ureter near the ureterovesicular junction, causing moderate left hydroureteronephrosis and moderate left perirenal stranding. There is postsurgical change at the inferior left kidney. The right kidney demonstrates no hydronephrosis. The bowel loops are nondistended without evidence of obstruction. No free fluid or free air is seen. The appendix appears normal. There is a small fat-containing periumbilical hernia. Degenerative changes are seen throughout the spine. IMPRESSION: 1. Obstructing 4 mm calculus in the distal left ureter near the ureterovesicular junction causing moderate left hydroureteronephrosis. Dictated on workstation # [id number] Dict: 12/18/17 1741 Trans: 12/18/17 1750 [facility] [id number] Interpreted by: EDILMA CADENA MD Electronically signed by: Reviewed: Reviewed by Me Departure Impression Primary Impression: Left ureteral calculus Additional Impression: Acute urinary tract infection Disposition: 01 HOME, SELF-CARE Condition: Stable Departure-Patient Inst. Decision time for Depature: 18:15 Referrals: KENDAL COLON MD (PCP/Family) Primary Care Physician ANDRZEJ WIN MD Patient Instructions: Kidney Stones (DC) Add. Discharge Instructions: Drink lots of fluids. Caffeine is encouraged. If you're having pain you can use ibuprofen 400 mg every 8 hours in addition to one to 2 tablets of hydrocodone every 6 hours as needed to control your pain. Use heating pads rest. Take one tablet of Flomax every night until the stone is passed. Strain your urine to see when you catch the stone to know when the stone is passed. Take one tablet of ondansetron every 6 hours as needed for nausea. If you have not passed the stone by Tuesday or Tuesday you can call Dr. Win, urology at his office and request an appointment for possible lithotripsy. If you're unable to tolerate the medicine because of nausea vomiting or you're continuing to have fevers or other worrisome symptoms then return to the ER for reevaluation. Scripts Nystatin (Nystatin) 1 Each Powder.ea. 1 EACH MC BID for 7 Days, #1 UNIT 0 Refills Prov: GEOVANNY BRISCOE 12/18/17 Oxycodone HCl/Acetaminophen (Oxycodone-Acetaminophen 5-325) 1 Each Tablet 1-2 EACH PO Q6H PRN for PAIN, #14 TAB 0 Refills Prov: GEOVANNY BRISCOE 12/18/17 Tamsulosin HCl (Flomax) 0.4 Mg Cap 0.4 MG PO HS for 7 Days, #7 CAP 0 Refills Prov: GEOVANNY BRISCOE 12/18/17 Ondansetron (Ondansetron Odt) 4 Mg Tab.rapdis 4 MG PO Q6H PRN for NAUSEA/VOMITING-1ST LINE for 7 Days, #10 TAB 0 Refills Prov: GEOVANNY BRISCOE 12/18/17 Ciprofloxacin HCl (Ciprofloxacin HCl) 500 Mg Tablet 500 MG PO BID for 7 Days, #14 TAB 0 Refills Prov: GEOVANNY BRISCOE 12/18/17 Copy Copies To 1: KENDAL COLON MD, TITUS J Dec 18, 2017 16:09
[2017-12-18 16:16] LABS: HEMATOCRIT 37 % (35-52); HEMOGLOBIN 12.4 G/DL (11.5-16.0); MEAN CORPUSCULAR HEMOGLOBIN 28 PG (25-34); MEAN CORPUSCULAR HGB CONC 34 G/DL (32-36); MEAN CORPUSCULAR VOLUME 83 FL (80-99); RED BLOOD COUNT 4.39 10^6/uL (4.35-5.85); WHITE BLOOD COUNT 15.6 10^3/uL (4.3-11.0)
[2017-12-18 16:17] LABS: BASOPHILS % (AUTO) 0 % (0-10); EOSINOPHILS % (AUTO) 1 % (0-10); LYMPHOCYTES # (AUTO) 0.8 X 10^3 (1.0-4.0); LYMPHOCYTES % (AUTO) 5 % (12-44); MONOCYTES % (AUTO) 6 % (0-12); NEUTROPHILS # (AUTO) 13.7 X 10^3 (1.8-7.8); NEUTROPHILS % (AUTO) 88 % (42-75); PLATELET COUNT 251 10^3/uL (130-400)
[2017-12-18 16:34] LABS: ALBUMIN 3.7 GM/DL (3.2-4.5); BILIRUBIN,TOTAL 0.7 MG/DL (0.1-1.0); CALCIUM 9.8 MG/DL (8.5-10.1); CREATININE SERUM 1.17 MG/DL (0.60-1.30); MAGNESIUM 1.2 MG/DL (1.8-2.4); POTASSIUM 4.3 MMOL/L (3.6-5.0); TOTAL PROTEIN 6.7 GM/DL (6.4-8.2)
[2017-12-18 17:18] LABS: BAND NEUTROPHILS 5 %; BASOPHILS % (MANUAL) 1 %; EOSINOPHILS % (MANUAL) 2 %; LYMPHOCYTES % (MANUAL) 3 %; MONOCYTES % (MANUAL) 2 %; NEUTROPHILS % (MANUAL) 87 %; RBC MORPH NORMAL
[2017-12-18] MEDS ORDERED: IOHEXOL 350 MG/ML 100 ML (OMNIPAQUE 350) VIAL IV ONE (17:45)
[2017-12-18] MEDS ORDERED: NS 250 ML (IVPB) BAG IV ONE (17:45)
[2017-12-18] MEDS ORDERED: CATHETER FLUSH 10 ML SYR IV PRN (17:45)
[2017-12-18 17:49] LABS: BILIRUBIN,URINE NEGATIVE (NEGATIVE); CLARITY,URINE VERY CLOUDY; COLOR,URINE YELLOW; GLUCOSE, URINE (UA) NEGATIVE (NEGATIVE); KETONES,URINE NEGATIVE (NEGATIVE); LEUKOCYTE ESTERASE ,URINE 3+ (NEGATIVE); NITRITE,URINE NEGATIVE (NEGATIVE); PH,URINE 5 (5-9); PROTEIN,URINE 2+ (NEGATIVE); UROBILINOGEN,URINE NORMAL (NORMAL)
--- NOTE | 2017-12-18 17:51 | Diagnostic Imaging Report ---
PROCEDURE: CT abdomen and pelvis with contrast. TECHNIQUE: Multiple contiguous axial images were obtained through the abdomen and pelvis after administration of intravenous contrast. INDICATION: Nausea, left lower quadrant pain, constipation. History of IBS and diverticulosis, bladder surgery, hysterectomy, cholecystectomy, rectal wall reconstruction. History of left kidney cancer. COMPARISON: 02/09/2017 FINDINGS: The lung bases are clear. The heart is normal in size. No focal hepatic lesions are seen. Cholecystectomy clips are noted. The spleen appears normal. The pancreas is normal. The adrenal glands appear normal. There is an obstructing 4 mm calculus in the distal left ureter near the ureterovesicular junction, causing moderate left hydroureteronephrosis and moderate left perirenal stranding. There is postsurgical change at the inferior left kidney. The right kidney demonstrates no hydronephrosis. The bowel loops are nondistended without evidence of obstruction. No free fluid or free air is seen. The appendix appears normal. There is a small fat-containing periumbilical hernia. Degenerative changes are seen throughout the spine. IMPRESSION: 1. Obstructing 4 mm calculus in the distal left ureter near the ureterovesicular junction causing moderate left hydroureteronephrosis. Dictated by: Dictated on workstation # [id number]
[2017-12-18 17:57] LABS: BACTERIA,URINE FEW /HPF; RBC,URINE 25-50 /HPF; WBC,URINE TNTC /HPF
[2017-12-18] MEDS ORDERED: CIPR500T4 PO (18:27)
[2017-12-18] MEDS ORDERED: ONDA4TAB11 PO (18:27)
[2017-12-18] MEDS ORDERED: NYST1POW MC (18:27)
[2017-12-18] MEDS ORDERED: TAMS0.4C98 PO (18:27)
[2017-12-18] MEDS ORDERED: OXYC-471 PO (18:27)
[2017-12-18] MEDS ORDERED: RX-ONDANSETRON 4 MG ODT (ZOFRAN) PPK #4 PO STA (18:30)
[2017-12-18] MEDS ORDERED: RX-OXYCODONE/APAP 5-325 MG #4 TAB PK PO PRN (18:30)
[2017-12-18] MEDS ORDERED: CIPROFLOXACIN 500 MG (CIPRO) TABLET PO STA (18:30)
[2017-12-18 18:49] VITALS: BP 148/95
--- OUTSIDE RECORDS SUMMARY | 2017-12-19 10:00 | XMS REPORT | Continuity of Care Document ---
Author Author [facility] Organization [facility] Address Unknown Phone Unavailable Allergies Active Description Code Type Severity Reaction Onset Reported/Identified Relationship to Patient Clinical Status Yes doxycycline [id number] Drug Allergy Severe DIFFICULTY HOLA 02/10/2007 Yes Penicillins [id number] Drug Allergy Severe HIVES, THROAT S 02/10/2007 Yes TAPE TAPE Mild RASH, WHELPS ON 02/10/2007 Yes latex [id number] Drug Allergy Mild RASH 11/07/2015 Yes celecoxib [id number] Drug Allergy Unknown N/A 11/08/2015 Yes hydrocodone [id number] Drug Allergy Moderate "MAKES HER FEEL 12/15/2015 Yes Cephalosporins [id number] Drug Allergy Unknown N/A 12/16/2015 Medications There is no data. Problems Date Dx Coded Attending Type Code Diagnosis Diagnosed By 04/05/2012 Ot 250.00 DIAB VIRI WO COMPL, TYPE II OR UNSPEC TY 04/05/2012 Ot 401.9 HYPERTENSION NOS 04/05/2012 Ot 789.00 ABDOMINAL PAIN, UNSPECIFIED SITE 04/05/2012 Ot V10.52 HX OF KIDNEY MALIGNANCY 04/24/2014 ANALIA WOLF, TOD Marcial Ot 272.4 04/24/2014 ANALIA WOLF, TOD Marcial Ot 401.9 04/24/2014 ANALIA WOLF, TOD Marcial Ot V58.69 04/24/2014 ANALIA WOLF, TOD Marcial Ot V58.83 04/24/2014 TOD HELMS MD Ot 189.0 04/24/2014 ANALIA WOLF, TOD Marcial Ot 250.00 04/24/2014 ANALIA WOLF, TOD Marcial Ot 272.4 04/24/2014 ANALIA WOLF, TOD Marcial Ot 401.9 04/24/2014 ANALIA WOLF, TOD Marcial Ot V70.0 04/24/2014 ANALIA WOLF, TOD Marcial Ot 250.00 04/24/2014 TOD HELMS MD Ot 272.4 04/24/2014 ANALIA WOLF, TOD Marcial Ot 571.8 04/24/2014 TDO HELMS MD Ot 593.2 04/24/2014 ANALIA WOLF, TOD J Ot 790.5 04/24/2014 ANALIA WOLF, TOD J Ot 790.99 04/24/2014 ANALIA WOLF, TOD J [...] TOD J Ot 401.9 10/31/2014 ANALIA WOLF, [facility] Ot V70.0 10/31/2014 ANALIA WOLF, TOD J Ot 250.00 10/31/2014 ANALIA WOLF, TOD J Ot 272.4 10/31/2014 ANALIA WOLF, [facility] Ot 571.8 10/31/2014 ANALIA WOLF, [facility] Ot 593.2 10/31/2014 ANALIA WOLF, [facility] Ot 790.5 10/31/2014 ANALIA WOLF, TOD J Ot 790.99 10/31/2014 ANALIA WOLF, [facility] Ot V10.52 10/31/2014 ANALIA WOLF, [facility] Ot V76.12 10/31/2014 ANALIA WOLF, TOD J Ot 250.00 10/31/2014 ANALIA WOLF, TOD J Ot 272.4 10/31/2014 ANALIA WOLF, TOD J Ot 571.8 10/31/2014 ANALIA WOLF, TOD J Ot 729.5 10/31/2014 ANALIA WOLF, [facility] Ot V10.52 11/08/2014 Ot 244.9 11/08/2014 Ot 250.00 11/08/2014 Ot 729.5 11/08/2014 Ot 786.50 11/08/2014 Ot 789.01 11/26/2014 Ot 244.9 11/26/2014 Ot 250.00 11/26/2014 Ot 729.5 11/26/2014 Ot 786.50 11/26/2014 Ot 789.01 11/26/2014 ANALIA WOLF, TOD J Ot 244.9 HYPOTHYROIDISM NOS 11/26/2014 ANALIA WOLF, TOD J Ot 250.00 DIAB VIRI WO COMPL, TYPE II OR UNSPEC TY 11/26/2014 ANALIA WOLF, TOD J Ot 272.4 HYPERLIPIDEMIA NEC/NOS 11/26/2014 ANALIA WOLF, TOD J Ot 401.9 HYPERTENSION NOS 11/26/2014 ANALIA WOLF, TOD J Ot V58.69 OTH MED,LT,CURRENT USE 11/28/2014 ANALIA WOLF, TOD J Ot 244.9 [...] ANALIA WOLF, TOD J Ot 571.8 11/28/2014 ANAILA WOLF, TOD J Ot 593.2 11/28/2014 ANALIA WOLF, TOD J Ot 790.5 11/28/2014 ANALIA WOLF, TOD J Ot 790.99 11/28/2014 ANALIA WOLF, TOD [...] TOD J Ot 272.4 11/28/2014 ANALIA WOLF, OTD J Ot 401.9 11/28/2014 ANALIA WOLF, TOD [...] J Ot 724.2 12/12/2014 ANALIA WOLF, TOD Marcial Ot V57.1 12/12/2014 ANALIA WOLF, TOD Marcial Ot 275.42 12/17/2014 ANALIA WOLF, TOD Marcial Ot 722.6 12/17/2014 ANALIA WOLF, TOD Marcial Ot 724.2 12/17/2014 ANALIA WOLF, TOD Marcial Ot V57.1 12/24/2014 ANALIA WOLF, TOD Marcial Ot 722.6 12/24/2014 ANALIA WOLF, TOD Marcial Ot 724.2 12/24/2014 ANALIA WOLF, TOD Marcial Ot V57.1 12/25/2014 ANALIA WOLF, TOD Marcial Ot 722.6 12/25/2014 ANALIA WOLF, TOD Marcial Ot 724.2 12/25/2014 ANALIA WOLF, TOD Marcial Ot V57.1 12/25/2014 ANALIA WOLF, TOD Marcial Ot 275.42 02/12/2015 ANALIA WOLF, TOD Marcial Ot 722.6 DISC DEGENERATION NOS 02/12/2015 ANALIA WOLF, TOD Marcial Ot 724.2 LUMBAGO 02/12/2015 ANALIA WOLF, TOD Marcial Ot V57.1 PHYSICAL THERAPY NEC 02/12/2015 ANALIA WOLF, TOD Marcial Ot 275.42 HYPERCALCEMIA 02/13/2015 ANALIA WOLF, TOD Marcial Ot 722.6 02/13/2015 ANALIA WOLF, TOD Marcial Ot 724.2 02/13/2015 ANALIA WOLF, TOD Marcial Ot V57.1 05/15/2015 ANALIA WOLF, TOD Marcial Ot 724.2 LUMBAGO 05/15/2015 ANALIA WOLF, TOD Marcial Ot M54.5 LOW BACK PAIN 09/12/2015 Ot 244.9 HYPOTHYROIDISM NOS 09/12/2015 Ot [...] Ot M53.3 SACROCOCCYGEAL DISORDERS, NOT ELSEWHERE 11/07/2015 JOHS FARIAS MD Ot Z68.43 BODY MASS INDEX [...] UNSPECIFIED 11/08/2015 BARRY HENNING DO Ot 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 11/27/2015 JOSH FARIAS [...] J18.9 PNEUMONIA, UNSPECIFIED ORGANISM 10/18/2016 HOLA MUNSON [employer] SERVICES PROFESSIONAL Ot Z12.31 ENCNTR SCREEN MAMMOGRAM FOR MALIGNANT NE 10/20/2016 Ot J18.9 PNEUMONIA, UNSPECIFIED ORGANISM 10/20/2016 HOLA MUNSON [employer] SERVICES PROFESSIONAL Ot Z12.31 ENCNTR SCREEN MAMMOGRAM FOR MALIGNANT NE 10/20/2016 Ot J18.9 PNEUMONIA, UNSPECIFIED ORGANISM 10/20/2016 HOLA MUNSON LO[employer] SERVICES PROFESSIONAL Ot Z12.31 ENCNTR SCREEN MAMMOGRAM FOR MALIGNANT NE 10/21/2016 Ot J18.9 PNEUMONIA, UNSPECIFIED ORGANISM 10/21/2016 HOLA MUNSON LO[employer] SERVICES PROFESSIONAL Ot Z12.31 ENCNTR SCREEN MAMMOGRAM FOR MALIGNANT NE 11/02/2016 Ot J18.9 PNEUMONIA, UNSPECIFIED ORGANISM 11/02/2016 HOLA MUNSON [employer] SERVICES PROFESSIONAL Ot Z12.31 ENCNTR SCREEN MAMMOGRAM FOR MALIGNANT [...] ADULT 11/03/2016 LI GENAO DO Ot Z79.84 INTERMEDIATE (CURRENT) USE OF ORAL HYPOGLYC 11/03/2016 LI GENAO DO Ot Z79.899 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 THERAPY 11/03/2016 LI GENAO DO [...] R07.89 OTHER CHEST PAIN 12/02/2016 KENDAL COLON MD, Ot Z79.84 INTERMEDIATE (CURRENT) USE OF ORAL HYPOGLYC 12/02/2016 KENDAL COLON MD, Ot Z79.899 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 THERAPY 12/02/2016 KENDAL COLON MD Ot Z85.528 PERSONAL HISTORY OF OTHER MALIGNANT NEOP 12/02/2016 KENDAL COLON MD, Ot E11.9 TYPE 2 DIABETES MELLITUS WITHOUT COMPLIC 12/02/2016 KENDAL COLON MD, Ot F41.9 ANXIETY DISORDER, UNSPECIFIED 12/02/2016 KENDAL COLON MD Ot I10 ESSENTIAL (PRIMARY) HYPERTENSION 12/02/2016 KENDAL COLON MD Ot R07.89 OTHER CHEST PAIN 12/02/2016 KENDAL COOLN MD Ot 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 12/02/2016 KENDAL COLON MD Ot Z79.899 OTHER INTERMEDIATE (CURRENT) DRUG THERAPY 12/02/2016 KENDAL COLON MD Ot Z85.528 PERSONAL HISTORY OF OTHER MALIGNANT NEOP 01/10/2017 KENDAL COLON MD Ot Z12.31 ENCNTR SCREEN MAMMOGRAM FOR MALIGNANT NE 02/10/2017 GENAO DO, LI D Ot K42.9 UMBILICAL HERNIA WITHOUT OBSTRUCTION OR 02/10/2017 GENAO DO, LI D Ot K62.89 OTHER SPECIFIED DISEASES OF ANUS AND REC 03/07/2017 GENAO DO, LI D Ot K42.9 UMBILICAL HERNIA WITHOUT OBSTRUCTION OR 03/07/2017 GENAO DO, LI D Ot K62.89 OTHER SPECIFIED DISEASES OF ANUS AND REC 03/07/2017 GENAO DO, LI D Ot K42.9 UMBILICAL HERNIA WITHOUT OBSTRUCTION OR 03/07/2017 GENAO DO, LI D Ot K62.89 OTHER SPECIFIED DISEASES OF ANUS AND REC 04/28/2017 KENDAL COLON MD Ot M25.552 PAIN IN LEFT HIP 04/28/2017 KENDAL COLON MD Ot R42 DIZZINESS AND GIDDINESS 04/28/2017 KENDAL COLON MD Ot R53.1 WEAKNESS 07/26/2017 KENDAL COLON MD Ot M25.552 PAIN IN LEFT HIP 07/26/2017 KENDAL COLON MD Ot R42 DIZZINESS AND GIDDINESS 07/26/2017 KENDAL COLON MD Ot R53.1 WEAKNESS 07/28/2017 KENDAL COLON MD Ot M25.552 PAIN IN LEFT HIP 07/28/2017 KENDAL COLON MD Ot R42 DIZZINESS AND GIDDINESS 07/28/2017 KENDAL COLON MD Ot R53.1 WEAKNESS 07/29/2017 KENDAL COLON MD Ot M25.552 PAIN IN LEFT HIP 07/29/2017 KENDAL COLON MD Ot R42 DIZZINESS AND GIDDINESS 07/29/2017 KENDAL COLON MD Ot R53.1 WEAKNESS 08/01/2017 KENDAL COLON MD Ot M25.552 PAIN IN LEFT HIP 08/01/2017 KENDAL COLON MD Ot R42 DIZZINESS AND GIDDINESS 08/01/2017 KENDAL COLON MD Ot R53.1 WEAKNESS 08/04/2017 TOD HELMS MD Ot 272.4 HYPERLIPIDEMIA NEC/NOS 08/04/2017 TOD HELMS MD Ot 401.9 HYPERTENSION NOS 08/04/2017 TOD HELMS MD Ot V58.69 OT MED,LT,CURRENT USE 08/04/2017 TOD HELMS MD Ot V58.83 ENCOUNTER FOR THERAPEUTIC DRUG MONITORIN 08/04/2017 ANALIA WOLF, TOD Marcial Ot 189.0 MALIG NEOPL KIDNEY 08/04/2017 ANALIA WOLF, TOD J Ot 250.00 DIAB VIRI WO COMPL, TYPE II OR UNSPEC TY 08/04/2017 ANALIA WOLF, TOD Marcial Ot 272.4 HYPERLIPIDEMIA NEC/NOS 08/04/2017 TOD HELMS MD Ot 401.9 HYPERTENSION NOS 08/04/2017 TOD HELMS MD Ot V70.0 ROUTINE MEDICAL EXAM 08/04/2017 ANALIA WOLF, TOD Marcial Ot 250.00 DIAB VIRI WO COMPL, TYPE II OR UNSPEC TY 08/04/2017 ANALIA WOLF, TOD Marcial Ot 272.4 HYPERLIPIDEMIA NEC/NOS 08/04/2017 ANALIA WOLF, TOD Marcial Ot 571.8 CHRONIC LIVER DIS NEC 08/04/2017 TOD HELMS MD Ot 593.2 CYST OF KIDNEY, ACQUIRED 08/04/2017 TOD HELMS MD Ot 790.5 ABN SERUM ENZY LEVEL NEC 08/04/2017 ANALIA WOLF, TOD Marcial Ot 790.99 BLOOD EXAM - OTH NONSPECIFIC FINDINGS 08/04/2017 TOD HELMS MD Ot V10.52 HX OF KIDNEY MALIGNANCY 08/04/2017 TOD HELMS MD Ot V76.12 OTH SCREEN MAMMO-MALIGN NEOPLASM OF HOLA 08/04/2017 ANALIA WOLF, TOD Marcial Ot 250.00 DIAB VIRI WO COMPL, TYPE II OR UNSPEC TY 08/04/2017 ANALIA WOLF, TOD Marcial Ot 272.4 HYPERLIPIDEMIA NEC/NOS 08/04/2017 TOD HELMS MD Ot 571.8 CHRONIC LIVER DIS NEC 08/04/2017 ANALIA WOLF, TOD Marcial Ot 729.5 PAIN IN LIMB 08/04/2017 TOD HELMS MD Ot V10.52 HX OF KIDNEY MALIGNANCY 08/04/2017 TOD HELMS MD Ot 275.42 HYPERCALCEMIA 08/04/2017 TOD HELMS MD Ot C64.9 MALIGNANT NEOPLASM OF UNSP KIDNEY, EXCEP 08/04/2017 ANALIA WOLF, TOD Marcial Ot K76.0 FATTY (CHANGE OF) LIVER, NOT ELSEWHERE C 08/04/2017 TOD HELMS MD Ot M54.5 LOW BACK PAIN 08/04/2017 TOD HELMS MD Ot R10.9 UNSPECIFIED ABDOMINAL PAIN 08/04/2017 TOD HELMS MD Ot R31.9 HEMATURIA, UNSPECIFIED 08/04/2017 TOD HELMS MD, Ot Z90.5 ACQUIRED ABSENCE OF KIDNEY 08/10/2017 KENDAL COLON MD, Ot M25.551 PAIN IN RIGHT HIP 08/10/2017 KENDAL COLON MD, Ot M25.552 PAIN IN LEFT HIP Procedures There is no data. Results Test Result Range Complete blood count (CBC) with automated white blood cell (WBC) differential - 12/01/16 19:00 Blood leukocytes automated count (number/volume) 14.0 10*3/uL 4.3-11.0 Blood erythrocytes automated count (number/volume) 4.76 10*6/uL 4.35-5.85 Venous blood hemoglobin measurement (mass/volume) 13.2 [...] Automated blood platelet mean volume measurement 12.0 [foz_us] 7.4-10.4 Automated blood neutrophils/100 leukocytes 60 % [...] Serum or plasma sodium measurement (moles/volume) 140 mmol/L 135-145 Serum or plasma potassium measurement (moles/volume) 3.6 mmol/L 3.6-5.0 Serum or plasma chloride measurement (moles/volume) 102 mmol/L 98-107 Carbon dioxide 24 mmol/L 21-32 Serum or plasma anion gap determination (moles/volume) 14 mmol/L 5-14 Serum or plasma urea nitrogen measurement (mass/volume) 21 mg/dL 7-18 Serum or plasma creatinine measurement (mass/volume) 1.11 mg/dL 0.60-1.30 Serum or plasma urea nitrogen/creatinine mass ratio 19 NRG Serum or plasma creatinine measurement with calculation of estimated glomerular filtration rate 51 NRG Serum or plasma glucose measurement (mass/volume) 106 mg/dL 70-105 Serum or plasma calcium measurement (mass/volume) 10.5 mg/dL 8.5-10.1 Serum or plasma total bilirubin [...] or plasma troponin i.cardiac measurement (mass/volume) < ng/ mL <0.30 Myoglobin, serum - 12/01/16 19:00 Myoglobin, serum 49.6 ng/mL 10.0-92.0 Fibrin D-dimer FEU measurement in platelet poor plasma (mass/volume) - 19:00 Fibrin D-dimer FEU measurement in platelet poor plasma (mass/volume) 0.52 ug/mL 0.00-0.49 Serum or plasma troponin i.cardiac measurement (mass/volume) - 12/01/16 22:21 Serum or plasma troponin i.cardiac measurement (mass/volume) < ng/ mL <0.30 Serum or plasma troponin i.cardiac measurement (mass/volume) - 12/02/16 02:02 Serum or plasma troponin i.cardiac measurement (mass/volume) < ng/ mL <0.30 Capillary blood glucose measurement by glucometer (mass/volume) - 12/02/16 04: 32 Capillary blood glucose measurement by glucometer (mass/volume) 114 mg/dL 70-110 Complete blood count (CBC) with automated white blood cell (WBC) differential - 12/02/16 05:04 Blood leukocytes automated count (number/volume) 9.0 10*3/uL 4.3-11.0 Blood erythrocytes automated count (number/volume) 4.18 10*6/uL 4.35-5.85 Venous blood hemoglobin measurement (mass/volume) 11.6 [...] Automated blood platelet mean volume measurement 11.7 [foz_us] 7.4-10.4 Automated blood neutrophils/100 leukocytes 54 % [...] Serum or plasma sodium measurement (moles/volume) 138 mmol/L 135-145 Serum or plasma potassium measurement (moles/volume) 3.2 mmol/L 3.6-5.0 Serum or plasma chloride measurement (moles/volume) 102 mmol/L 98-107 Carbon dioxide 23 mmol/L 21-32 Serum or plasma anion gap determination (moles/volume) 13 mmol/L 5-14 Serum or plasma urea nitrogen measurement (mass/volume) 19 mg/dL 7-18 Serum or plasma creatinine measurement (mass/volume) 0.95 mg/dL 0.60-1.30 Serum or plasma urea nitrogen/creatinine mass [...] Serum or plasma cholesterol measurement (mass/volume) 181 mg/dL < 200 Serum or plasma cholesterol in HDL measurement (mass/volume) 35 mg/ dL 40-60 Cholesterol in LDL [mass/volume] in serum or plasma by direct assay 140 mg/dL 1-129 Serum or plasma cholesterol in VLDL measurement (mass/volume) 22 mg/ dL 5-40 [id number] - 02/09/17 11:05 Serum or plasma urea nitrogen measurement (mass/volume) 25 mg/dL 7-18 Serum or plasma creatinine measurement (mass/volume) 0.90 mg/dL 0.60-1.30 Serum or plasma urea nitrogen/creatinine mass ratio 28 NRG Serum or plasma creatinine measurement with calculation of estimated glomerular filtration rate > NRG Encounters ACCT No. Visit Date/Time Discharge Status Pt. Type Provider Facility Loc./Unit Complaint [id number] 09/30/2017 16:06:00 09/30/2017 16:50:00 [facility]; PAIN IN LEFT HIP [id number] 08/09/2017 17:12:00 08/09/2017 23:59:59 CLS Outpatient KENDAL COLON MD [facility] RAD BILATERAL HIP PAIN [id number] 07/21/2017 16:03:00 07/26/2017 00:01:00 DIS Outpatient KENDAL COLON MD [facility] DIZZINESS; WEAKNESS; PAIN IN LEFT HIP [id number] 02/09/2017 10:56:00 02/09/2017 23:59:59 CLS Outpatient LI GENAO DO [facility] RAD ANAL OR RECTAL PAIN [id number] 12/14/2016 09:55:00 12/14/2016 23:59:59 CLS Outpatient KENDAL COLON MD [facility] RAD SCREENING [id number] 12/01/2016 19:04:00 12/02/2016 09:02:00 DIS Inpatient KENDAL COLON MD [facility] 4TH MALIGNANT HTN,CHEST PAIN, ANXIETY [id number] 11/02/2016 08:54:00 11/02/2016 10:41:00 DIS Outpatient LI GENAO DO [facility] ENDO HX POLYPS [id number] 10/29/2016 05:42:00 10/29/2016 13:22:00 DIS Outpatient LI GENAO DO [facility] PREOP COLONOSCOPY [id number] 10/21/2016 10:00:00 10/21/2016 23:59:59 CLS Preadmit KENDAL COLON MD [facility] RAD ROUTINE/SCREENING [id number] 12/16/2015 09:53:00 12/16/2015 13:50:00 [facility] [id number] 12/15/2015 08:30:00 12/15/2015 08:51:00 DIS Outpatient LI GENAO DO [facility] PREOP HISTORY OF POLYPS [id number] 12/09/2015 15:18:00 12/09/2015 23:59:59 CLS Outpatient HOLA MUNSON [facility] RAD SCREENING [id number] 11/07/2015 23:27:00 11/08/2015 01:59:00 DIS Emergency BARRY HENNING DO [facility] ER HIGH BLOOD SUGAR [id number] 11/07/2015 07:25:00 11/07/2015 08:22:00 DIS Outpatient JOSH FARIAS MD [facility] CARD DISC DISORDER / RADICULOPATHY, LUMBAR [id number] 09/13/2015 14:49:00 09/13/2015 23:59:59 CLS Outpatient TOD HELMS MD [facility] RAD [id number] 05/16/2015 00:17:00 05/16/2015 23:59:59 CLS Preadmit TOD HELMS MD [facility] REHAB [id number] 04/17/2015 15:44:00 05/15/2015 00:01:00 DIS Outpatient TOD HELMS MD [facility] REHAB LOW BACK PAIN;DDD [id number] 02/24/2015 10:36:00 02/24/2015 23:59:59 CLS Outpatient TOD HELMS MD [facility] RAD FOLLOW UP RENAL CARINOMA , FLANK PAIN, LOW BACK YULISA [id number] 02/10/2015 15:41:00 02/12/2015 00:01:00 DIS Outpatient TOD HELMS MD [facility] REHAB LOW BACK PAIN;DDD [id number] 12/15/2014 06:15:00 02/12/2015 00:01:00 DIS Outpatient TOD HELMS MD [facility] LAB ELEVATED CALCIUM LEVELS [id number] 12/10/2014 13:58:00 12/10/2014 23:59:59 CLS Outpatient TOD HELMS MD [facility] LAB [id number] 11/26/2014 08:30:00 11/26/2014 13:00:00 DIS Outpatient TOD HELMS MD [facility] LAB DIABETES TYPE 2 HYPERLIPIDEMIA HYPOTHYROID HTN [id number] 04/24/2014 07:33:00 04/24/2014 23:59:59 CLS Outpatient TOD HELMS MD [facility] RAD HX RENAL CA,ABD PAIN,R HAND/FINGER PAIN [id number] 01/17/2014 06:44:00 01/17/2014 23:59:59 CLS Outpatient TOD HELMS MD [facility] LAB HTN,HLP,LANGUAGE TEACHER MED USE [id number] 04/11/2013 08:53:00 04/11/2013 23:59:59 CLS Outpatient TOD HELMS MD [facility] RAD SCREENING,RLQ PAIN, HX OF RENAL CELL CARCINOMA [id number] 10/06/2012 09:43:00 10/06/2012 23:59:59 CLS Outpatient TOD HELMS MD [facility] LAB HX HTN,HYPERLIPIDEMIA, TYPE 2 DIABETES,JUSTICE CELL C [id number] 06/12/2015 11:48:00 Document Registration [id number] 07/15/2014 13:23:00 Document Registration [id number] 04/05/2012 20:38:00 Document Registration [id number] 03/21/2012 11:00:00 Document Registration [id number] 02/09/2012 00:00:00 Document Registration [id number] 04/02/2011 11:47:00 Document Registration [id number] 02/24/2015 12:56:26 ACT Document Registration [id number] 10/28/2015 16:07:31 10/28/2015 23:59:59 CLS Outpatient
== END 2017-12-18 18:49 | disposition home or self-care (01) ==
LOC: EDUNIT# 15:40 → ER 15:41
DX: N20.1 Calculus of ureter (principal); N39.0 Urinary tract infection, site not specified; J44.9 Chronic obstructive pulmonary disease, unspecified; I10 Essential (primary) hypertension; E03.9 Hypothyroidism, unspecified; E11.9 Type 2 diabetes mellitus without complications; F41.0 Panic disorder [episodic paroxysmal anxiety]; Z87.19 Personal history of other diseases of the digestive system; Z86.010 Personal history of colon polyps; Z82.49 Family history of ischemic heart disease and other diseases of the circulatory system; Z88.0 Allergy status to penicillin; Z88.1 Allergy status to other antibiotic agents; Z88.5 Allergy status to narcotic agent; Z91.040 Latex allergy status; Z88.8 Allergy status to other drugs, medicaments and biological substances; Z79.84 Long term (current) use of oral hypoglycemic drugs; Z90.89 Acquired absence of other organs
CPT/HCPCS: 36415; 74177; 80053; 81000; 83690; 83735; 85007; 85025; 85027; 87088; 87186; 96361; 96374

== ENCOUNTER 2018-09-25 17:14 | Emergency (ER) | payer OTHER ==
[~2018-09-25] VITALS: Ht 160 cm; Wt 129.3 kg
[~2018-09-25 17:14] MED LIST changes: +CIPR500T4 PO; +METF-397 PO; -METF500T5 PO; +NYST1POW MC; +ONDA4TAB11 PO; +OXYC-471 PO; +TAMS0.4C98 PO
[2018-09-25] MEDS ORDERED: ASPIRIN 81 MG CHEW (CHILDREN'S ASA) PO ONE (17:30)
[2018-09-25] MEDS ORDERED: LORazepam INJ 2 MG/ML (ATIVAN) VIAL IVP PRN (17:30)
[2018-09-25] MEDS ORDERED: meTOprolol TARTRATE 25 MG (LOPRESSOR) TABLET PO ONE (17:30)
[2018-09-25] MEDS ORDERED: ONDANSETRON 4 MG/2 ML (SDV) Z0FRAN IVP ONE (17:30)
--- NOTE | 2018-09-25 17:30 | ED General ---
General Stated Complaint: L ARM PAIN,HEART BURN,NAUSEA,DIZZY Source of Information: Patient Exam Limitations: No Limitations History of Present Illness Date Seen by Provider: September 25, 2018 Time Seen by Provider: 17:27 Initial Comments To ER with left arm, headache and left neck pain, nausea, dizziness. The symptoms began about 30 minutes ago, 15 minutes after she took 2 colchicine tablets. Beginning yesterday she had some left heel pain, today had some right great toe pain. She took 3 colchicine yesterday and then 2 more today. She's also been taking naproxen for the pain and states that the heel and toe pain are improving. She is also currently on doxycycline for an abscess of the proximal thigh near the vaginal area and has been on this for about 5 days, states that the abscess has reduced in size by about 50%. She is also having a cough productive of green sputum. She's been having more than usual heartburn for the past few days as well. Timing/Duration: 1/2 Hour Severity: Moderate Associated Systoms: Cough, Headaches, Nausea/Vomiting Allergies and Home Medications Allergies Coded Allergies: Penicillins (Unverified Allergy, Severe, HIVES, THROAT SWELLS, DIFFICULTY BREATHING, 02/10/07) doxycycline (Unverified Allergy, Severe, DIFFICULTY BREATHING, HIVES, THROAT SWELLS, 02/10/07) hydrocodone (Verified Allergy, Intermediate, "MAKES HER FEEL VERY BAD", 12/15/15) latex (Verified Allergy, Mild, RASH, 11/07/15) Cephalosporins (Unverified Allergy, Unknown, 12/16/15) celecoxib (Unverified Allergy, Unknown, 11/08/15) Uncoded Allergies: TAPE (Adverse Reaction, Mild, RASH, WHELPS ON SKIN WHERE TAPE WAS., 02/10/07 ) Home Medications Alprazolam 0.5 Mg Tablet, 0.5 MG PO BID PRN for ANXIETY, (Reported) Ciprofloxacin HCl 500 Mg Tablet, 500 MG PO BID Prescribed by: GEOVANNY BRISCOE on 12/18/171826 Magnesium Oxide 400 Mg Tablet, 400 MG PO DAILY Prescribed by: TAN GRIMM on 09/25/181934 Metformin HCl 500 Mg Tab.er.24h, 500 MG PO BID, (Reported) Nystatin 1 Each Powder.ea., 1 EACH MC BID Prescribed by: GEOVANNY BRISCOE on 12/18/171826 Ondansetron 4 Mg Tab.rapdis, 4 MG PO Q6H PRN for NAUSEA/VOMITING-1ST LINE Prescribed by: GEOVANNY BRISCOE on 12/18/171826 Oxycodone HCl/Acetaminophen 1 Each Tablet, 1-2 EACH PO Q6H PRN for PAIN Prescribed by: GEOVANNY BRISCOE on 12/18/171826 Propranolol HCl 40 Mg Tablet, 40 MG PO HS, (Reported) Sertraline HCl 50 Mg Tablet, 50 MG PO DAILY Prescribed by: KENDAL COLON on 12/02/16 09 Tamsulosin HCl 0.4 Mg Cap, 0.4 MG PO HS Prescribed by: GEOVANNY BRISCOE on 12/18/171826 Triamterene/Hydrochlorothiazid 1 Each Capsule, 1 EACH PO HS, (Reported) Patient Home Medication List Home Medication List Reviewed: Yes Review of Systems Review of Systems Constitutional: see HPI, chills EENTM: see HPI Respiratory: see HPI, cough Cardiovascular: see HPI, chest pain; No edema, No Hx of Intervention, No palpitations, No syncope Gastrointestinal: No abdominal pain; nausea Genitourinary: no symptoms reported Musculoskeletal: no symptoms reported Skin: no symptoms reported Psychiatric/Neurological: No Symptoms Reported Hematologic/Lymphatic: No Symptoms Reported Past Rdkyqny-Dupget-Uqpjkr Hx Patient Social History Alcohol Beverage of Choice: Beer 2nd Hand Smoke Exposure: No Recent Foreign Travel: No Contact w/Someone Who Travel: No Recent Hopitalizations: No Immunizations Up To Date Tetanus Booster (TDap): Unknown Date of Pneumonia Vaccine: Feb 13, 2010 Seasonal Allergies Seasonal Allergies: Yes Past Medical History Surgeries: Yes (SURGERY ON BOILS , HEMORRHOIDECTOMY, TUMOR REMOVED FROM L KIDNEY) Bladder Surgery, Section, Gallbladder, Hysterectomy Respiratory: Yes (ALLERGY INDUCED ASTHMA) Asthma, Chronic Bronchitis Currently Using CPAP: No Currently Using BIPAP: No Cardiac: Yes Hypertension Neurological: No 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 Disorders: No 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 Sexually Transmitted Disease: No Gastrointestinal: Yes (Fatty Liver Disease, UMBILICAL HERNIA) Polyps, Ulcer Musculoskeletal: Yes (STENOSIS IN LOWER BACK, OSTEOARTHRITIS, DJD) Degenerate Disk Disease, Arthritis, Fractures Endocrine: Yes Hypothyroidsim, Diabetes, 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) What Type of Treatment Did You: Surgical Intervention Psychosocial: Yes (PANIC ATTACKS ) Anxiety Integumentary: No Blood Disorders: No Family Medical History Cardiovascular disease 19 FATHER, Onset:Unknown Completed stroke 19 FATHER, Onset:Unknown Congenital heart disease Dementia 19 FATHER, Onset:Unknown Diabetes mellitus 19 FATHER, Onset:Unknown FH: COPD (chronic obstructive pulmonary disease) 19 MOTHER, Onset:Unknown Hypertension 19 FATHER, Onset:Unknown Myocardial infarction 19 FATHER, Onset:Unknown Thyroid disease 19 MOTHER, Onset:Unknown No Pertinent Family Hx Physical Exam Vital Signs Vital Signs - First Documented 09/25/18 17:27 Temp 97.8 Pulse 90 Resp 16 B/P (MAP) 205/90 (128) Pulse Ox 98 O2 Delivery Room Air Capillary Refill : Height, Weight, BMI Height: 5'3.00" Weight: 300lbs. 0.0oz. 136.786130bh; 51.2 BMI Method:Stated General Appearance: No Apparent Distress, WD/WN, Anxious, Obese Eyes: Bilateral Eye Normal Inspection, Bilateral Eye PERRL HEENT: PERRL/EOMI, TMs Normal Respiratory: No Accessory Muscle Use, No Respiratory Distress Cardiovascular: Regular Rate, Rhythm Gastrointestinal: Normal Bowel Sounds, Non Tender, Soft Neurologic/Psychiatric: Alert, Oriented x3 Skin: Normal Color, Warm/Dry Progress/Results/Core Measures Suspected Sepsis SIRS Temperature: Pulse: Respiratory Rate: Laboratory Tests 09/25/18 17:30: White Blood Count 11.3H Blood Pressure / Mean: Laboratory Tests 09/25/18 17:30: Creatinine 1.16, INR Comment 0.9, Platelet Count 327, Total Bilirubin 0.2 Results/Orders Lab Results Laboratory Tests Test 09/25/18 17:30 09/25/18 19:39 Range/Units White Blood Count 11.3 H 4.3-11.0 10^3/uL Red Blood Count 4.47 4.35-5.85 10^6/uL Hemoglobin 12.5 11.5-16.0 G/DL Hematocrit 37 35-52 % Mean Corpuscular Volume 84 80-99 FL Mean Corpuscular Hemoglobin 28 25-34 PG Mean Corpuscular Hemoglobin Concent 33 32-36 G/DL Red Cell Distribution Width 13.6 10.0-14.5 % Platelet Count 327 130-400 10^3/uL Mean Platelet Volume 11.7 H 7.4-10.4 FL Neutrophils (%) (Auto) 55 42-75 % Lymphocytes (%) (Auto) 27 12-44 % Monocytes (%) (Auto) 9 0-12 % Eosinophils (%) (Auto) 9 0-10 % Basophils (%) (Auto) 0 0-10 % Neutrophils # (Auto) 6.2 1.8-7.8 X 10^3 Lymphocytes # (Auto) 3.1 1.0-4.0 X 10^3 Monocytes # (Auto) 1.0 0.0-1.0 X 10^3 Eosinophils # (Auto) 1.0 H 0.0-0.3 10^3/uL Basophils # (Auto) 0.0 0.0-0.1 10^3/uL Prothrombin Time 12.3 12.2-14.7 SEC INR Comment 0.9 0.8-1.4 Activated Partial Thromboplast Time 28 24-35 SEC Sodium Level 141 135-145 MMOL/L Potassium Level 4.1 3.6-5.0 MMOL/L Chloride Level 107 98-107 MMOL/L Carbon Dioxide Level 19 L 21-32 MMOL/L Anion Gap 15 H 5-14 MMOL/L Blood Urea Nitrogen 25 H 7-18 MG/DL Creatinine 1.16 0.60-1.30 MG/DL Estimat Glomerular Filtration Rate 49 BUN/Creatinine Ratio 22 Glucose Level 221 H 70-105 MG/DL Calcium Level 10.4 H 8.5-10.1 MG/DL Corrected Calcium 10.6 H 8.5-10.1 MG/DL Magnesium Level 1.4 L 1.8-2.4 MG/DL Total Bilirubin 0.2 0.1-1.0 MG/DL Aspartate Amino Transf (AST/SGOT) 45 H 5-34 U/L Alanine Aminotransferase (ALT/SGPT) 53 0-55 U/L Alkaline Phosphatase 89 40-136 U/L Myoglobin 41.2 10.0-92.0 NG/ML Troponin I < 0.028 < 0.028 <0.028 NG/ML B-Type Natriuretic Peptide 14.7 <100.0 PG/ML Total Protein 7.2 6.4-8.2 GM/DL Albumin 3.8 3.2-4.5 GM/DL Lipase 76 8-78 U/L My Orders Orders - TAN GRIMM APRN Cardiac Profile 1 (09/25/18 17:16) Comprehensive Metabolic Panel (09/25/18 17:16) Myoglobin Serum (09/25/18 17:16) Protime With Inr (09/25/18 17:16) Partial Thromboplastin Time (09/25/18 17:16) O2 (09/25/18 17:16) Monitor-Rhythm Ecg Trace Only (09/25/18 17:16) Ed Iv/Invasive Line Start (09/25/18 17:16) Lipase (09/25/18 17:16) BNP (09/25/18 17:16) Aspirin Chewable Tablet (Baby Aspirin Ch (09/25/18 17:30) Ondansetron Injection (Zofran Injectio (09/25/18 17:30) Cbc With Automated Diff (09/25/18 17:16) Magnesium (09/25/18 17:16) Chest 1 View, Ap/Pa Only (09/25/18 17:16) Ekg Tracing (09/25/18 17:16) Lipid Panel (09/26/18 06:00) Metoprolol Tartrate (Ir) Tab (Lopressor (09/25/18 17:30) Lorazepam Injection (Ativan Injection) (09/25/18 17:30) Ns Iv 1000 Ml (Sodium Chloride 0.9%) (09/25/18 18:30) Magnesium Oxide Tablet (Mag Ox Tablet) (09/25/18 18:30) Fentanyl Injection (Sublimaze Injection (09/25/18 18:45) Ct Angio Chest W (09/25/18 18:43) Troponin I (09/25/18 19:23) Medications Given in ED Current Medications Medications Dose Ordered Sig/Raheem Route Start Time Stop Time Status Last Admin Dose Admin Aspirin 324 mg ONCE ONCE PO 09/25/18 17:30 09/25/18 17:31 DC 09/25/18 17:48 324 MG Fentanyl Citrate 50 mcg ONCE ONCE IVP 09/25/18 18:45 09/25/18 18:46 DC 09/25/18 18:50 50 MCG Lorazepam 0.5 mg ONCE PRN IVP 09/25/18 17:30 09/25/18 17:49 0.5 MG Magnesium Oxide 800 mg ONCE ONCE PO 09/25/18 18:30 09/25/18 18:31 DC 09/25/18 18:49 800 MG Ondansetron HCl 8 mg ONCE ONCE IVP 09/25/18 17:30 09/25/18 17:31 DC 09/25/18 17:48 8 MG Vital Signs/I&O 09/25/18 17:27 Temp 97.8 Pulse 90 Resp 16 B/P (MAP) 205/90 (128) Pulse Ox 98 O2 Delivery Room Air Capillary Refill : Diagnostic Imaging Diagonstic Imaging: CT Comments NAME: JESSICA LONGO [facility] REC#: [id number] PT STATUS: REG ER : 1965 PHYSICIAN: TAN GRIMM APRN ADMIT DATE: 09/25/18/ER Draft Date of Exam:09/25/18 CT ANGIO CHEST W INDICATION: Chest pain and left arm pain. CTA chest obtained with IV contrast bolus and axial slices and MIP reconstructions. The pulmonary parenchymal vessels are well opacified with no evidence of pulmonary embolic disease. The thoracic aortic arch and great vessel origins are unremarkable. There is no evidence of aortic dissection or aneurysm. There is no pleural or pericardial fluid. Lung parenchymal windows appear unremarkable. There is no focal infiltrate. Visualized portions of the upper abdomen demonstrate fatty infiltration of the liver and evidence of prior cholecystectomy. IMPRESSION: No CT evidence of pulmonary emboli or aortic dissection or aneurysm. No acute process in the chest. Incidental fatty infiltration of the liver. Dictated on workstation # [id number] Dict: 09/25/181949 Trans: 09/25/181955 [id number] Interpreted by: ELDER GUERRERO MD Electronically signed by: Departure Communication (Admissions) 1831-reports that her left arm pain is a shooting pain and becoming more frequent. Fentanyl ordered. The anterior proximal left upper arm is tender to palpation Impression Primary Impression: Hypomagnesemia Additional Impressions: Left arm pain General symptom Disposition: 01 HOME, SELF-CARE Condition: Stable Departure-Patient Inst. Decision time for Depature: 19:34 Referrals: KENDAL COLON MD (PCP/Family) Primary Care Physician Patient Instructions: General (DC), Low Magnesium Level (DC) Add. Discharge Instructions: 1. Return to ER for any concerns 2. Follow-up with your doctor next week Scripts Magnesium Oxide (Magnesium Oxide) 400 Mg Tablet 400 MG PO DAILY, #5 TAB Prov: TAN GRIMM APRN 09/25/18 Copy Copies To 1: KENDAL COLON MD, PETER J APRN September 25, 2018 17:30
[2018-09-25 17:42] LABS: BASOPHILS % (AUTO) 0 % (0-10); EOSINOPHILS % (AUTO) 9 % (0-10); HEMATOCRIT 37 % (35-52); HEMOGLOBIN 12.5 G/DL (11.5-16.0); LYMPHOCYTES # (AUTO) 3.1 X 10^3 (1.0-4.0); LYMPHOCYTES % (AUTO) 27 % (12-44); MEAN CORPUSCULAR HEMOGLOBIN 28 PG (25-34); MEAN CORPUSCULAR HGB CONC 33 G/DL (32-36); MEAN CORPUSCULAR VOLUME 84 FL (80-99); MEAN PLATELET VOLUME 11.7 FL (7.4-10.4); MONOCYTES % (AUTO) 9 % (0-12); NEUTROPHILS # (AUTO) 6.2 X 10^3 (1.8-7.8); NEUTROPHILS % (AUTO) 55 % (42-75); PLATELET COUNT 327 10^3/uL (130-400); RED CELL DISTRIBUTION WIDTH 13.6 % (10.0-14.5); WHITE BLOOD COUNT 11.3 10^3/uL (4.3-11.0)
[2018-09-25 17:51] LABS: INR 0.9 (0.8-1.4); PROTHROMBIN TIME PATIENT 12.3 SEC (12.2-14.7)
--- NOTE | 2018-09-25 17:56 | Diagnostic Imaging Report ---
INDICATION: Chest pain and cough. PA and lateral chest obtained at 5:44 p.m. FINDINGS: Heart and mediastinal silhouette are normal in appearance. The lungs are clear. There is no pneumothorax or pleural fluid. IMPRESSION: Negative chest. Dictated by: Dictated on workstation # [id number]
[2018-09-25 18:07] LABS: ALBUMIN 3.8 GM/DL (3.2-4.5); ALKALINE PHOSPHATASE 89 U/L (40-136); BILIRUBIN,TOTAL 0.2 MG/DL (0.1-1.0); BUN/CREATININE RATIO 22; CALCIUM 10.4 MG/DL (8.5-10.1); CARBON DIOXIDE 19 MMOL/L (21-32); CHLORIDE 107 MMOL/L (98-107); CREATININE SERUM 1.16 MG/DL (0.60-1.30); GFR ESTIMATED 49; GLUCOSE 221 MG/DL (70-105); LIPASE 76 U/L (8-78); MAGNESIUM 1.4 MG/DL (1.8-2.4); POTASSIUM 4.1 MMOL/L (3.6-5.0); SODIUM 141 MMOL/L (135-145); TOTAL PROTEIN 7.2 GM/DL (6.4-8.2)
[2018-09-25] MEDS ORDERED: NS IV 1000 ML 1,000 ML IV SCH (18:30)
[2018-09-25] MEDS ORDERED: MAGNESIUM OXIDE (MAG-OX)400 MG TAB PO ONE (18:30)
[2018-09-25 18:41] LABS: ALANINE AMINOTRANSFERASE 53 U/L (0-55)
[2018-09-25] MEDS ORDERED: fentaNYL INJECTION 100 MCG/2 ML AMP IVP ONE (18:45)
[2018-09-25] MEDS ORDERED: MAGN400T7 PO (19:35)
--- NOTE | 2018-09-25 19:56 | Diagnostic Imaging Report ---
INDICATION: Chest pain and left arm pain. CTA chest obtained with IV contrast bolus and axial slices and MIP reconstructions. The pulmonary parenchymal vessels are well opacified with no evidence of pulmonary embolic disease. The thoracic aortic arch and great vessel origins are unremarkable. There is no evidence of aortic dissection or aneurysm. There is no pleural or pericardial fluid. Lung parenchymal windows appear unremarkable. There is no focal infiltrate. Visualized portions of the upper abdomen demonstrate fatty infiltration of the liver and evidence of prior cholecystectomy. IMPRESSION: No CT evidence of pulmonary emboli or aortic dissection or aneurysm. No acute process in the chest. Incidental fatty infiltration of the liver. Dictated by: Dictated on workstation # [id number]
[2018-09-25 20:25] VITALS: BP 128/59
== END 2018-09-25 20:40 | disposition home or self-care (01) ==
LOC: EDUNIT# 17:14 → ER 17:16
DX: E83.42 Hypomagnesemia (principal); M79.602 Pain in left arm; R51 Headache; M54.2 Cervicalgia; R11.2 Nausea with vomiting, unspecified; R05 Cough; R42 Dizziness and giddiness; J44.9 Chronic obstructive pulmonary disease, unspecified; I10 Essential (primary) hypertension; M48.061 Spinal stenosis, lumbar region without neurogenic claudication; E03.9 Hypothyroidism, unspecified; E11.9 Type 2 diabetes mellitus without complications; F41.0 Panic disorder [episodic paroxysmal anxiety]; Z86.018 Personal history of other benign neoplasm; Z87.19 Personal history of other diseases of the digestive system; Z86.010 Personal history of colon polyps; Z82.49 Family history of ischemic heart disease and other diseases of the circulatory system; Z88.0 Allergy status to penicillin; Z88.1 Allergy status to other antibiotic agents; Z88.5 Allergy status to narcotic agent; Z91.040 Latex allergy status; Z91.048 Other nonmedicinal substance allergy status; Z79.84 Long term (current) use of oral hypoglycemic drugs; Z98.890 Other specified postprocedural states; Z90.89 Acquired absence of other organs; Z90.710 Acquired absence of both cervix and uterus
CPT/HCPCS: 36415; 71045; 71275; 80053; 83690; 83735; 83874; 83880; 84484; 85025; 85610; 85730; 93005; 93041

== ENCOUNTER → 2018-11-02 | Outpatient (CLI) | payer OTHER ==
[~2018-11-02] MED LIST changes: +MAGN400T7 PO
--- NOTE | 2018-11-02 21:05 | Diagnostic Imaging Report ---
INDICATION: Routine screening. Comparison is made with prior mammograms from 12/14/2016 and 12/09/2015. 2-D and 3-D bilateral screening mammography was performed. The current study was also evaluated with a Computer Aided Detection (CAD) system. 3-D tomosynthesis was also performed and reviewed. FINDINGS: Scattered fibroglandular densities are identified bilaterally. Intraparenchymal lymph node in upper-outer right breast is stable. No new mass or malignant-appearing microcalcifications are seen. Axillae are unremarkable. IMPRESSION: No mammographic features suspicious for malignancy are identified. ACR BI-RADS Category 2: Benign findings. Result letter will be mailed to the patient. Note: At least 10% of breast cancer is not imaged by mammography. Dictated by: Dictated on workstation # [id number]
== END ==
LOC: RAD 14:27
PROVIDERS: ATTEND Family Medicine
DX: Z12.31 Encounter for screening mammogram for malignant neoplasm of breast (principal)
CPT/HCPCS: 77067

== ENCOUNTER → 2019-06-20 | Outpatient (CLI) | payer OTHER ==
[~2019-06-20] MED LIST changes: +METF500T19 PO; -METF500T8 PO; -TAMS0.4C98 PO; +TMSL.4C PO
[2019-06-20 12:11] LABS: BILIRUBIN,URINE NEGATIVE (NEGATIVE); CLARITY,URINE CLEAR; COLOR,URINE YELLOW; GLUCOSE, URINE (UA) NEGATIVE (NEGATIVE); KETONES,URINE NEGATIVE (NEGATIVE); LEUKOCYTE ESTERASE ,URINE NEGATIVE (NEGATIVE); NITRITE,URINE NEGATIVE (NEGATIVE); PROTEIN,URINE 1+ (NEGATIVE)
[2019-06-20 12:25] LABS: BACTERIA,URINE FEW /HPF; WBC,URINE RARE /HPF
== END ==
LOC: LAB 11:38
PROVIDERS: ATTEND Family Medicine
DX: R30.0 Dysuria (principal); R35.0 Frequency of micturition
CPT/HCPCS: 81000; 87088

== ENCOUNTER → 2019-11-30 | Outpatient (CLI) | payer OTHER ==
[~2019-11-30] MED LIST changes: +METF-865 PO; -METF500T19 PO
== END ==
LOC: CARD 14:20
PROVIDERS: ATTEND Internal Medicine Cardiovascular Disease
DX: I10 Essential (primary) hypertension (principal); E78.2 Mixed hyperlipidemia; E11.9 Type 2 diabetes mellitus without complications; R06.02 Shortness of breath
CPT/HCPCS: 93306

== ENCOUNTER → 2019-12-19 | Outpatient (CLI) | payer OTHER ==
[~2019-12-19] VITALS: Ht 160 cm; Wt 125.0 kg
[~2019-12-19] MED LIST changes: +CATHETER FLUSH 10 ML SYR IV PRN; +REGADENOSON 0.4 MG/5 ML SYR (LEXISCAN) IV ONE
[2019-12-19 09:18] VITALS: BP 169/91
--- NOTE | 2019-12-19 13:41 | Cardiology Stress Test Report ---
Stress Test Report Date of Procedure/Referring: Date of Procedure: Dec 19, 2019 PCP Eduardo Machado MD Admitting Physician Devyn Connolly MD Indications: Chest pain Baseline Blood Pressure: Blood Pressure Systolic: 169 Blood Pressure Diastolic: 91 Baseline Vitals Vital Signs Date Time Temp Pulse Resp B/P (MAP) Pulse Ox O2 Delivery O2 Flow Rate FiO2 12/19/19 09:18 70 169/91 (117) Baseline EKG: Baseline EKG: Normal sinus rhythm Summary After explaining the procedure to the patient, she signed a consent and then brought to the stress nuclear laboratory. Patient received 0.4 mg Lexiscan for stress test, ECG, heart rate and blood pressure were monitored continuously. Resting and stress dose of radio tracer were injected, imaging was acquired and reviewed in short axis, horizontal long axis and vertical long axis views. TID: 1.01 SSS: 5 SDS: 3 EF: 72 1. Patient tolerated Lexiscan well 2. Breast attenuation with mild decreased uptake involving the anterior wall with mild reversibility, could be secondary to breast attenuation 3. Normal left ventricular size, EF 72 percent EDUARDO MACHADO MD Dec 19, 2019 13:41
== END ==
LOC: CARD 06:49
PROVIDERS: ATTEND Internal Medicine Cardiovascular Disease
DX: I10 Essential (primary) hypertension (principal); E78.2 Mixed hyperlipidemia; E11.9 Type 2 diabetes mellitus without complications; N64.89 Other specified disorders of breast
CPT/HCPCS: 78452; 93017; A9502

== ENCOUNTER → 2020-03-07 | Outpatient (CLI) | payer OTHER ==
[~2020-03-07] MED LIST changes: +ALPR1TAB7 PO; +ASPI-1238 PO; -CATHETER FLUSH 10 ML SYR IV PRN; +DIME50TA25 PO; +DOXY100C2 PO; +FLUC150T2 PO; +LORA10TA7 PO; +MICO45CR11 TOP; +MUPI15CR11 TP; +NAPR-1033 PO; -REGADENOSON 0.4 MG/5 ML SYR (LEXISCAN) IV ONE
== END ==
LOC: LABNPT 05:31
PROVIDERS: ATTEND Internal Medicine Cardiovascular Disease
DX: Z01.812 Encounter for preprocedural laboratory examination (principal); Z53.9 Procedure and treatment not carried out, unspecified reason

== ENCOUNTER 2020-04-09 12:41 | Outpatient (CLI) | payer OTHER | END 2020-04-09 13:30 | disposition home or self-care (01) | LOC: SLEEP 12:41 | PROVIDERS: ATTEND Internal Medicine Cardiovascular Disease | DX: G47.33 Obstructive sleep apnea (adult) (pediatric) (principal) ==

== ENCOUNTER 2020-07-20 15:07 | Inpatient (IN) | payer OTHER ==
[~2020-07-20] VITALS: Ht 160 cm; Wt 124.0 kg
[~2020-07-20 15:07] MED LIST changes: -CIPR500T4 PO; +CIPR500T5 PO; -OXYC-471 PO; +OXYC1TAB11 PO
[2020-07-20] MEDS ORDERED: ACETAMINOPHEN 500 MG TAB (TYLENOL) PO ONE (15:30)
--- NOTE | 2020-07-20 15:36 | ED General ---
General Stated Complaint: FEVER/SOB/DIARRHEA Source of Information: Patient Exam Limitations: No Limitations History of Present Illness Date Seen by Provider: Jul 20, 2020 Time Seen by Provider: 15:36 Initial Comments To ER with fever shortness of breath and diarrhea for about 3 days. Her mother the day before and she attributed the symptoms to anxiety/grief/stress. She states her oxygen saturation was 89% at home. Timing/Duration: 2-3 Days Severity: Moderate Associated Systoms: Denies Symptoms Allergies and Home Medications Allergies Coded Allergies: Penicillins (Unverified Allergy, Severe, HIVES, THROAT SWELLS, DIFFICULTY BREATHING, 02/10/07) doxycycline (Unverified Allergy, Severe, DIFFICULTY BREATHING, HIVES, THROAT SWELLS, 02/10/07) hydrocodone (Verified Allergy, Intermediate, "MAKES HER FEEL VERY BAD", 12/15/15) latex (Verified Allergy, Mild, RASH, 11/07/15) Cephalosporins (Unverified Allergy, Unknown, 12/16/15) celecoxib (Unverified Allergy, Unknown, 11/08/15) Uncoded Allergies: TAPE (Adverse Reaction, Mild, RASH, WHELPS ON SKIN WHERE TAPE WAS., 02/10/07) Home Medications Alprazolam 1 Mg Tablet, 0.5-1 MG PO DAILY PRN for ANXIETY, (Reported) Aspirin 81 Mg Tablet.dr, 81 MG PO HS, (Reported) Dimenhydrinate 50 Mg Tablet, 50 MG PO HS PRN for DIZZINESS, (Reported) Doxycycline Hyclate 100 Mg Capsule, 100 MG PO Q12H, (Reported) FILLED 12-13-2019 #20/10 DAY SUPPLY Fluconazole 150 Mg Tablet, 150 MG PO DAILY, (Reported) FILLED 12-14-2019 #10 - ONLY TAKES WHILE ON DOXYCYCLINE Loratadine 10 Mg Tablet, 10 MG PO HS, (Reported) Metformin HCl 500 Mg Tab.er.24h, 500 MG PO HS Hold metformin for 48 hours Prescribed by: EDUARDO GREENE on 12/26/19 1342 Miconazole Nitrate 45 Gm Cream.appl, 1 APPLIC TOP PRN PRN for YEAST RASH, (Reported) Mupirocin Calcium 15 Gm Cream..g., 1 APPLIC TP DAILY PRN for RASH, (Reported) Naproxen Sodium 220 Mg Tablet, 440 MG PO HS PRN for PAIN-MILD (1-4), (Reported) Propranolol HCl 40 Mg Tablet, 40 MG PO HS, (Reported) Patient Home Medication List Home Medication List Reviewed: Yes Review of Systems Review of Systems Constitutional: see HPI EENTM: see HPI Respiratory: no symptoms reported Cardiovascular: no symptoms reported Genitourinary: no symptoms reported Musculoskeletal: no symptoms reported Skin: no symptoms reported Psychiatric/Neurological: No Symptoms Reported Hematologic/Lymphatic: No Symptoms Reported Immunological/Allergic: no symptoms reported Past Ladsmjq-Vflsih-Audzyl Hx Patient Social History Alcohol Beverage of Choice: Beer 2nd Hand Smoke Exposure: No Recent Hopitalizations: No Immunizations Up To Date Tetanus Booster (TDap): Unknown Date of Pneumonia Vaccine: Jun 27, 2013 Seasonal Allergies Seasonal Allergies: Yes Past Medical History Surgeries: Yes (SURGERY ON BOILS , HEMORRHOIDECTOMY, TUMOR REMOVED FROM L KIDNEY) Abdominal, Section, Gallbladder, Hysterectomy Respiratory: Yes ("EXERCISE INDUCED ASTHMA") Asthma, Pneumonia, Chronic Bronchitis Currently Using CPAP: No Currently Using BIPAP: No Cardiac: Yes Angina, Hypertension, Palpitations Neurological: No 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 Disorders: 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 Sexually Transmitted Disease: No Kidney Infection, Kidney Stones Gastrointestinal: Yes (Fatty Liver Disease, UMBILICAL HERNIA) Gastroesophageal Reflux, Diverticulosis, Polyps, Ulcer, Irritable Bowel Musculoskeletal: Yes (STENOSIS IN LOWER BACK, OSTEOARTHRITIS, DJD) Degenerate Disk Disease, Arthritis, Fractures Endocrine: Yes Hypothyroidsim, Diabetes, Non-Insulin dep Cancer: Yes Kidney Did You Recieve Any Treatments: Yes What Type of Treatment Did You: Surgical Intervention Psychosocial: Yes (PANIC ATTACKS ) Anxiety Integumentary: No Blood Disorders: No Adverse Reaction/Blood Tranf: No Family Medical History Cardiovascular disease 19 FATHER, Onset:Unknown Completed stroke 19 FATHER, Onset:Unknown Congenital heart disease Dementia 19 FATHER, Onset:Unknown Diabetes mellitus 19 FATHER, Onset:Unknown FH: COPD (chronic obstructive pulmonary disease) 19 MOTHER, Onset:Unknown Hypertension 19 FATHER, Onset:Unknown Myocardial infarction 19 FATHER, Onset:Unknown Thyroid disease 19 MOTHER, Onset:Unknown No Pertinent Family Hx Physical Exam Vital Signs Vital Signs - First Documented 07/20/20 15:10 Temp 38.3 Pulse 89 Resp 27 B/P (MAP) 148/86 (106) Pulse Ox 94 O2 Delivery Room Air Capillary Refill : Height, Weight, BMI Height: 5'3.00" Weight: 285lbs. 0.0oz. 129.927561aw; 48.28 BMI Method:Stated General Appearance: No Apparent Distress, WD/WN, Obese, Other (Oxygen saturation 94 to 96% on room air here) Eyes: Bilateral Eye Normal Inspection, Bilateral Eye PERRL HEENT: PERRL/EOMI, TMs Normal Neck: Full Range of Motion, Normal Inspection Respiratory: No Accessory Muscle Use, No Respiratory Distress Gastrointestinal: Normal Bowel Sounds, Non Tender, Soft Extremity: Normal Capillary Refill, Normal Inspection Neurologic/Psychiatric: Alert, Oriented x3 Skin: Normal Color, Warm/Dry Focused Exam Lactate Level 07/20/20 15:30: Lactic Acid Level 1.83 Lactic Acid Level Laboratory Tests Test 07/20/20 15:30 Lactic Acid Level 1.83 MMOL/L (0.50-2.00) Progress/Results/Core Measures Suspected Sepsis SIRS Temperature: Pulse: Respiratory Rate: Laboratory Tests 07/20/20 15:30: White Blood Count 5.9 Blood Pressure / Mean: 07/20/20 15:30: Lactic Acid Level 1.83 Laboratory Tests 07/20/20 15:30: Creatinine 1.24, Platelet Count 205, Total Bilirubin 0.2 Results/Orders Lab Results Laboratory Tests Test 07/20/20 15:20 07/20/20 15:30 Range/Units Coronavirus 2019 ([facility]) Positive H Negative White Blood Count 5.9 4.3-11.0 10^3/uL Red Blood Count 4.40 3.80-5.11 10^6/uL Hemoglobin 11.9 11.5-16.0 g/dL Hematocrit 37 35-52 % Mean Corpuscular Volume 84 80-99 fL Mean Corpuscular Hemoglobin 27 25-34 pg Mean Corpuscular Hemoglobin Concent 32 32-36 g/dL Red Cell Distribution Width 13.6 10.0-14.5 % Platelet Count 205 130-400 10^3/uL Mean Platelet Volume 11.7 9.0-12.2 fL Immature Granulocyte % (Auto) 1 % Neutrophils (%) (Auto) 63 42-75 % Lymphocytes (%) (Auto) 28 12-44 % Monocytes (%) (Auto) 6 0-12 % Eosinophils (%) (Auto) 1 0-10 % Basophils (%) (Auto) 0 0-10 % Neutrophils # (Auto) 3.8 1.8-7.8 10^3/uL Lymphocytes # (Auto) 1.7 1.0-4.0 10^3/uL Monocytes # (Auto) 0.4 0.0-1.0 10^3/uL Eosinophils # (Auto) 0.1 0.0-0.3 10^3/uL Basophils # (Auto) 0.0 0.0-0.1 10^3/uL Immature Granulocyte # (Auto) 0.0 0.0-0.1 10^3/uL D-Dimer 0.92 H 0.00-0.49 UG/ML Sodium Level 135 135-145 MMOL/L Potassium Level 4.2 3.6-5.0 MMOL/L Chloride Level 102 98-107 MMOL/L Carbon Dioxide Level 23 21-32 MMOL/L Anion Gap 10 5-14 MMOL/L Blood Urea Nitrogen 15 7-18 MG/DL Creatinine 1.24 0.60-1.30 MG/DL Estimat Glomerular Filtration Rate 45 BUN/Creatinine Ratio 12 Glucose Level 222 H 70-105 MG/DL Lactic Acid Level 1.83 0.50-2.00 MMOL/L Calcium Level 8.6 8.5-10.1 MG/DL Corrected Calcium 9.1 8.5-10.1 MG/DL Total Bilirubin 0.2 0.1-1.0 MG/DL Aspartate Amino Transf (AST/SGOT) 57 H 5-34 U/L Alanine Aminotransferase (ALT/SGPT) 47 0-55 U/L Alkaline Phosphatase 65 40-136 U/L C-Reactive Protein High Sensitivity 4.10 H 0.00-0.50 MG/DL Total Protein 6.8 6.4-8.2 GM/DL Albumin 3.4 3.2-4.5 GM/DL Procalcitonin 0.06 <0.10 NG/ML Micro Results Microbiology 07/20/20 Influenza Types A,B Antigen (BRISSA) - Final, Complete My Orders 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 With 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 Diff (07/20/20 15:26) Hs C Reactive Protein (07/20/20 15:26) Comprehensive Metabolic Panel (07/20/20 15:26) Influenza A And B Antigens (07/20/20 15:26) Chest 1 View, Ap/Pa Only (07/20/20 15:26) Fibrin Degradation Products (3/7/21 15:26) Acetaminophen Tablet (Tylenol Tablet) (07/20/20 15:30) Blood Culture (07/20/20 15:26) Lactic Acid Analyzer (07/20/20 15:26) Ua Culture If Indicated (07/20/20 15:26) Covid 19 Inhouse Test (07/20/20 15:20) Ct Angio Chest W (07/20/20 16:04) Ns Iv 1000 Ml (Sodium Chloride 0.9%) (07/20/20 16:15) Iohexol Injection (Omnipaque 350 Mg/Ml 1 (07/20/20 16:30) Received Contrast (Hold Metformin- Contr (07/20/20 16:30) Ns (Ivpb) (Sodium Chloride 0.9% Ivpb Bag (07/20/20 16:30) Procalcitonin (Pct) (07/20/20 16:51) Medications Given in ED Current Medications Medications Dose Ordered Sig/Raheem Route Start Time Stop Time Status Last Admin Dose Admin Acetaminophen 1,000 mg ONCE ONCE PO 07/20/20 15:30 07/20/20 15:31 DC 07/20/20 15:38 1,000 MG Iohexol 100 ml ONCE ONCE IV 07/20/20 16:30 07/20/20 16:31 DC 07/20/20 16:45 100 ML Sodium Chloride 100 ml ONCE ONCE IV 07/20/20 16:30 07/20/20 16:31 DC 07/20/20 16:45 80 ML Vital Signs/I&O 07/20/20 15:10 Temp 38.3 Pulse 89 Resp 27 B/P (MAP) 148/86 (106) Pulse Ox 94 O2 Delivery Room Air Capillary Refill : Diagnostic Imaging Diagonstic Imaging: Xray Plain Films/CT/US/NM/MRI: chest Comments NAME: JESSICA LONGO [facility] REC#: [id number] PT STATUS: REG ER : 1965 PHYSICIAN: TAN GRIMM APRN ADMIT DATE: 07/20/20/ER Draft Date of Exam:07/20/20 CHEST 1 VIEW, AP/PA ONLY INDICATION: Cough. TECHNIQUE: Single view chest 4:06 PM. CORRELATION STUDY: 12/26/2019. FINDINGS: The heart size, mediastinal configuration and pulmonary vascularity are within normal limits. Asymmetric opacity at the left lung base has developed suspect for probable pneumonia. However, there is apparent amount of soft tissue attenuation particularly lower lung ma. IMPRESSION: Findings suspect for left basilar pneumonia. Follow-up imaging is recommended. Dictated on workstation # [id number] Dict: 07/20/20 1619 Trans: 07/20/20 1622 [facility] [id number] Interpreted by: DAHLIA LANE DO Electronically signed by: Departure Communication (Admissions) She is not hypoxic here though she is obese and with an infiltrate in the left lower lobe. As such, she is fairly high risk for worsening. With Dr. Colon will admit here on remdesivir and Decadron. Impression Primary Impression: Pneumonia due to COVID-19 virus Disposition: ADMITTED INPATIENT Condition: Stable Admissions Decision to Admit Reason: Admit from ER (General) Decision to Admit/Date: Jul 20, 2020 Time/Decision to Admit Time: 17:53 Departure-Patient Inst. Referrals: KENDAL COLON MD (PCP/Family) Primary Care Physician TAN GRIMM APRN Jul 20, 2020 15:36
[2020-07-20 15:44] LABS: BASOPHILS % (AUTO) 0 % (0-10); EOSINOPHILS # (AUTO) 0.1 10^3/uL (0.0-0.3); EOSINOPHILS % (AUTO) 1 % (0-10); HEMATOCRIT 37 % (35-52); HEMOGLOBIN 11.9 g/dL (11.5-16.0); LYMPHOCYTES # (AUTO) 1.7 10^3/uL (1.0-4.0); LYMPHOCYTES % (AUTO) 28 % (12-44); MEAN CORPUSCULAR HEMOGLOBIN 27 pg (25-34); MEAN CORPUSCULAR HGB CONC 32 g/dL (32-36); MEAN CORPUSCULAR VOLUME 84 fL (80-99); MEAN PLATELET VOLUME 11.7 fL (9.0-12.2); MONOCYTES # (AUTO) 0.4 10^3/uL (0.0-1.0); MONOCYTES % (AUTO) 6 % (0-12); NEUTROPHILS # (AUTO) 3.8 10^3/uL (1.8-7.8); NEUTROPHILS % (AUTO) 63 % (42-75); PLATELET COUNT 205 10^3/uL (130-400); WHITE BLOOD COUNT 5.9 10^3/uL (4.3-11.0)
[2020-07-20 15:50] LABS: ALBUMIN 3.4 GM/DL (3.2-4.5); POTASSIUM 4.2 MMOL/L (3.6-5.0)
[2020-07-20 15:51] LABS: CALCIUM 8.6 MG/DL (8.5-10.1)
[2020-07-20 15:53] LABS: TOTAL PROTEIN 6.8 GM/DL (6.4-8.2)
[2020-07-20 15:54] LABS: BILIRUBIN,TOTAL 0.2 MG/DL (0.1-1.0)
[2020-07-20 15:56] LABS: CREATININE SERUM 1.24 MG/DL (0.60-1.30)
[2020-07-20] MEDS ORDERED: NS IV 1000 ML 1,000 ML IV SCH (16:15)
--- NOTE | 2020-07-20 16:22 | Diagnostic Imaging Report ---
INDICATION: Cough. TECHNIQUE: Single view chest 4:06 PM. CORRELATION STUDY: 12/26/2019. FINDINGS: The heart size, mediastinal configuration and pulmonary vascularity are within normal limits. Asymmetric opacity at the left lung base has developed suspect for probable pneumonia. However, there is apparent amount of soft tissue attenuation particularly lower lung ma. IMPRESSION: Findings suspect for left basilar pneumonia. Follow-up imaging is recommended. Dictated by: Dictated on workstation # [id number]
[2020-07-20] MEDS ORDERED: NS 100 ML (IVPB) BAG IV ONE (16:30)
[2020-07-20] MEDS ORDERED: HOLD METFORMIN - RECEIVED CONTRAST 20 ML VIAL IV SCH (16:30)
[2020-07-20] MEDS ORDERED: IOHEXOL 350 MG/ML 100 ML (OMNIPAQUE 350) VIAL IV ONE (16:30)
--- NOTE | 2020-07-20 16:59 | Diagnostic Imaging Report ---
PROCEDURE: CT angiography of the chest with contrast. TECHNIQUE: Multiple contiguous axial images were obtained through the chest after uneventful bolus administration of intravenous contrast. 3D reconstructed CTA MIP acquisitions were also performed. Auto Exposure Controls were utilized during the CT exam to meet ALARA standards for radiation dose reduction. INDICATION: Pneumonia, elevated d-dimer. COMPARISON: 09/25/2018 and radiographs dated 07/20/2020. FINDINGS: No significant adenopathy within the chest. A few calcified left hilar lymph nodes are present. No aneurysmal dilatation of the thoracic aorta. The heart is within normal limits in size. No pericardial effusion. No pleural effusion. No pneumothorax. Patchy groundglass opacities are identified throughout the lungs, bilaterally. Calcified granuloma within the right midlung. The trachea is patent. No significant filling defect within the central or segmental pulmonary arteries. Subsegmental pulmonary arteries are not optimally evaluated secondary to contrast bolus timing. Cholecystectomy. Diffusely decreased density of the liver related to fatty infiltration of the liver. The visualized upper abdomen is otherwise unremarkable. Scattered osseous degenerative changes without acute osseous abnormality. IMPRESSION: 1. No significant pulmonary embolus within the limits of the exam. 2. Extensive patchy bilateral groundglass opacities concerning for an infectious or inflammatory process. Covid 19 should be considered. 3. Fatty infiltration of the liver. 4. Evidence of chronic granulomatous disease. Dictated by: Dictated on workstation # [id number]
[2020-07-20] MEDS ORDERED: LACTATED RINGERS 1,000 ML IV ONE (19:32)
[2020-07-20 19:41] VITALS: BP 145/65
[2020-07-20] MEDS: LACTATED RINGERS 1,000 ML IV SCH (19:58)
[2020-07-20 20:03] VITALS: BP 145/65
[2020-07-20] MEDS ORDERED: RT-ALBUTEROL INHALER HFA (VENTOLIN HFA) 18 GM IH PRN (20:45)
[2020-07-20] MEDS ORDERED: NovoLOG/HumaLOG RANGE B SC SCH (21:00)
[2020-07-20] MEDS: RT-ALBUTEROL INHALER HFA (VENTOLIN HFA) 18 GM IH SCH (21:39)
[2020-07-20] MEDS: dexAMETHasone 6 MG TAB (DECADRON) PO SCH (21:53)
[2020-07-20] MEDS: ALPRAZolam 1 MG (XANAX) TAB PO PRN (22:01)
[2020-07-20] MEDS ORDERED: inSUlin ASPART (NovoLOG) 1 UNIT/0.01 ML (CHARGE PER UNIT) SC SCH (22:45)
[2020-07-21] VITALS (9 sets, daily range): BP systolic 128–146; BP diastolic 59–70
[2020-07-21] MEDS ORDERED: AZITHROMYCIN 250 MG TAB (ZITHROMAX) PO ONE (01:45)
[2020-07-21] MEDS: RT-ALBUTEROL INHALER HFA (VENTOLIN HFA) 18 GM IH SCH ×4 (02:52→20:48)
[2020-07-21] MEDS ORDERED: inSUlin ASPART (NovoLOG) 1 UNIT/0.01 ML (CHARGE PER UNIT) SC SCH (06:00)
[2020-07-21] MEDS ORDERED: REMDESIVIR 200 MG/NS 250 ML IVPB IV NR ×2 (09:00)
[2020-07-21] MEDS ORDERED: NS IV 500 ML 500 ML ONE (09:10)
[2020-07-21] MEDS ORDERED: CHOLESTYRAMINE 4 GM (QUESTRAN LITE, PREVALITE) PKT PO ONE (09:15)
[2020-07-21] MEDS: dexAMETHasone 6 MG TAB (DECADRON) PO SCH (09:48)
[2020-07-21] MEDS: LACTATED RINGERS 1,000 ML IV SCH ×2 (09:48→16:32)
[2020-07-21] MEDS ORDERED: ENOXAPARIN 40 MG/0.4 ML (LOVENOX) SYR SQ SCH (11:00)
--- NOTE | 2020-07-21 11:17 | History & Physical ---
History of Present Illness History of Present Illness Reason for visit/HPI 54 year old female admitted for COVID-19. Her oxygen saturation at home was 88% per patient, mid-90s while in ER. She is obese, has diabetes, htn putting her at higher risk for complications. She does not smoke. Of note her mother last week and she attributed her not feeling well to grief. Onset of symptoms July 16, she did attend her mother's on 07/18/2020 -everyone was wearing masks but she is worried that she may be the cause of a lot of people getting covid. She has had diarrhea for 4 days. Still has her taste and smell. She is coughing. She is fatigued. Blood pressure was elevated last week so her blood pressure medication was increased. 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 -ER course- started on dexamethasone. Date of Admission Jul 20, 2020 at 17:41 Date Seen by a Provider: Jul 21, 2020 Time Seen by a Provider: 09:00 I consulted on this patient on 07/21/20 11:10 Attending Physician Devyn Colon MD Admitting Physician Devyn Colon MD Consult Allergies and Home Medications Allergies Coded Allergies: Penicillins (Unverified Allergy, Severe, HIVES, THROAT SWELLS, DIFFICULTY BREATHING, 02/10/07) doxycycline (Unverified Allergy, Severe, DIFFICULTY BREATHING, HIVES, THROAT SWELLS, 02/10/07) hydrocodone (Verified Allergy, Intermediate, "MAKES HER FEEL VERY BAD", 12/15/15) latex (Verified Allergy, Mild, RASH, 11/07/15) Cephalosporins (Unverified Allergy, Unknown, 12/16/15) celecoxib (Unverified Allergy, Unknown, 11/08/15) Uncoded Allergies: TAPE (Adverse Reaction, Mild, RASH, WHELPS ON SKIN WHERE TAPE WAS., 02/10/07) Home Medications Albuterol Sulfate 1 Puff Puff, 1 PUFF INH Q8H PRN for SHORTNESS OF BREATH, (Reported) Alprazolam 1 Mg Tablet, 0.25-0.5 MG PO QID PRN for ANXIETY, (Reported) Alprazolam 1 Mg Tablet, 1 MG PO HS PRN for ANXIETY, (Reported) Aspirin 81 Mg Tablet.dr, 81 MG PO HS, (Reported) Calcium Carb/Magnesium Oxid/D3 1 Each Tablet, 1 EACH PO HS, (Reported) Chlorpheniramine Maleate 4 Mg Tablet, 4 MG PO Q4H PRN for ALLERGIES, (Reported) Diphenhydramine HCl 25 Mg Capsule, 25 MG PO HS PRN for SLEEP, (Reported) Fluconazole 150 Mg Tablet, 150 MG PO DAILY/DURING ANTIBIOTIC USE, (Reported) Fluticasone Propionate 9.9 Ml [place].susp, 2 SPRAY NS DAILY PRN for CONGESTION, (Reported) Metformin HCl 500 Mg Tab.er.24h, 500 MG PO HS, (Reported) Miconazole Nitrate 45 Gm Cream.appl, 1 APPLIC TOP PRN PRN for YEAST RASH, (Reported) Naproxen Sodium 220 Mg Tablet, 440 MG PO HS PRN for PAIN-MILD (1-4), (Reported) Pantoprazole Sodium 40 Mg Tablet.dr, 40 MG PO HS, (Reported) Propranolol HCl 40 Mg Tablet, 40 MG PO HS, (Reported) Patient Home Medication List Home Medication List Reviewed: Yes Past Aanereq-Efbqci-Gzxtff Hx Patient Social History Alcohol Beverage of Choice: Beer Smoking Status: Never a Smoker 2nd Hand Smoke Exposure: No Recent Hopitalizations: No Have you traveled recently?: No Alcohol Use?: No Pt feels they are or have been: No Immunizations Up To Date Tetanus Booster (TDap): Unknown Date of Pneumonia Vaccine: Jun 27, 2013 Seasonal Allergies Seasonal Allergies: Yes Surgeries Yes (SURGERY ON BOILS , HEMORRHOIDECTOMY, TUMOR REMOVED FROM L KIDNEY) Abdominal, Section, Gallbladder, Hysterectomy Respiratory Yes ("EXERCISE INDUCED ASTHMA") Currently Using CPAP: No Currently Using BIPAP: No Cardiovascular Yes Angina, Hypertension, Palpitations Neurological No 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 System Hx 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 Disorders: No Sexually Transmitted Disease: 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 Genitourinary Kidney Infection, Kidney Stones Gastrointestinal Yes (Fatty Liver Disease, UMBILICAL HERNIA) Gastroesophageal Reflux, Diverticulosis, Polyps, Ulcer, Irritable Bowel Musculoskeletal Yes (STENOSIS IN LOWER BACK, OSTEOARTHRITIS, DJD) Degenerate Disk Disease, Arthritis, Fractures Endocrine History of Endocrine Disorders: Yes Endocrine Disorders: Hypothyroidsim, Diabetes, Non-Insulin dep Cancer Yes Kidney Did You Recieve Any Treatments: Yes Type of Treatment: Surgical Intervention Psychosocial History of Psychiatric Problem: Yes (PANIC ATTACKS ) Behavioral Health Disorders: Anxiety Integumentary History of Skin or Integumenta: No Blood Transfusions History of Blood Disorders: No Adverse Reaction to a Blood Tr: No Family Medical History Significant Family History: No Pertinent Family Hx Family Hx: Cardiovascular disease 19 FATHER, Onset:Unknown Completed stroke 19 FATHER, Onset:Unknown Congenital heart disease Dementia 19 FATHER, Onset:Unknown Diabetes mellitus 19 FATHER, Onset:Unknown FH: COPD (chronic obstructive pulmonary disease) 19 MOTHER, Onset:Unknown Hypertension 19 FATHER, Onset:Unknown Myocardial infarction 19 FATHER, Onset:Unknown Thyroid disease 19 MOTHER, Onset:Unknown Review of Systems Review of Systems General: Fatigue (fever) HEENT: Head Aches Pulmonary: Dyspnea, Cough Cardiovascular: No: Chest Pain, Palpitations Gastrointestinal: Diarrhea; No: Nausea, Vomiting Genitourinary: No Dysuria, No Frequency Neurological: Weakness Physical Exam Vital Signs Vital Signs - First Documented 07/20/20 20:03 FiO2 21 Capillary Refill : Less Than 3 Seconds Height, Weight, BMI Height: 5'3.00" Weight: 285lbs. 0.0oz. 129.666966ha; 48.43 BMI Method:Stated General Appearance: No Apparent Distress HEENT: PERRL/EOMI Neck: Non Tender, Supple Respiratory: Chest Non Tender, Lungs Clear, Normal Breath Sounds, No Accessory Muscle Use, No Respiratory Distress Cardiovascular: Regular Rate, Rhythm, No Edema Gastrointestinal: Non Tender, Soft Rectal: Deferred Back: No CVA Tenderness Extremity: Non Tender, No Calf Tenderness Neurologic/Psychiatric: Alert, Oriented x3 Assessment/Plan Assessment/Plan Admission Dx COVID -19 Admission Status: Inpatient Order (span 2 midnights) Reason for Inpatient Admission: Patient will need over 2 midnights as she has multiple co-morbidities that make her high risk for decompensation from COVID Assessment and Plan 07/20/20- admitted for COVID -started on IVF, dexamethasone, remdesivir 07/21/20- continue dexamethasone. Adding on tessalon perles for cough. Will give patient convalescent plasma. Oxygen sats on room air is 95-96%- she is doing well. Today is day 5 of symptoms. Also added on cholestyramine to help with the diarrhea. d/c'd azithromycin as her procalcitonin level makes less lightly bacterial pneumonia. Lovenox for DVT ppx. Dispo: will reassess tomorrow- possibility of discharge to home tomorrow. BUT low threshold to keep inpatient as she is in the critical time of when patients start to decline. Problems: (1) Pneumonia due to COVID-19 virus (2) DMII (diabetes mellitus, type 2) Qualifiers: (3) Diarrhea (4) Hypertension (5) Hypothyroidism DEVYN COLON MD Jul 21, 2020 11:17
[2020-07-21] MEDS: inSUlin ASPART (NovoLOG) 1 UNIT/0.01 ML (CHARGE PER UNIT) SC SCH ×3 (11:56→20:35)
[2020-07-21] MEDS ORDERED: BENZONATATE 100 MG (TESSALON) CAPSULE PO SCH (13:00)
[2020-07-21] MEDS: CHOLESTYRAMINE 4 GM (QUESTRAN LITE, PREVALITE) PKT PO SCH (13:58)
[2020-07-21] MEDS: ACETAMINOPHEN 325 MG TABLET PO PRN (13:58)
[2020-07-21] MEDS: ALPRAZolam 1 MG (XANAX) TAB PO PRN ×2 (13:58→20:34)
[2020-07-21] MEDS ORDERED: BENZONATATE 100 MG (TESSALON) CAPSULE PO PRN (14:00)
[2020-07-21] MEDS ORDERED: CHLO-159 PO (15:05)
[2020-07-21] MEDS ORDERED: DIPH25CA79 PO (15:05)
[2020-07-21] MEDS ORDERED: ALPR1TAB7 PO (15:05)
[2020-07-21] MEDS ORDERED: CALC-408 PO (15:05)
[2020-07-21] MEDS ORDERED: METF-865 PO (15:05)
[2020-07-21] MEDS ORDERED: FLUT9.9S NS (15:05)
[2020-07-21] MEDS ORDERED: PANT40TA52 PO (15:05)
[2020-07-21] MEDS ORDERED: RT-ALBUINH INH (15:05)
[2020-07-21] MEDS ORDERED: fluCOnazole (DIFLUCAN) 100 MG TAB PO NR (17:00)
[2020-07-21] MEDS ORDERED: ASPIRIN E.C. 81 MG (ECOTRIN) TAB PO ONE (20:23)
[2020-07-21] MEDS: NAPROXEN 250 MG (NAPROSYN) TABLET PO PRN (20:34)
[2020-07-21] MEDS: ASPIRIN E.C. 81 MG (ECOTRIN) TAB PO SCH (20:34)
[2020-07-21] MEDS: ENOXAPARIN 40 MG/0.4 ML (LOVENOX) SYR SQ SCH (20:35)
[2020-07-22 00:15] VITALS: BP 142/64
[2020-07-22] MEDS: RT-ALBUTEROL INHALER HFA (VENTOLIN HFA) 18 GM IH SCH ×3 (02:30→14:12)
[2020-07-22 04:46] VITALS: BP 144/66
[2020-07-22] MEDS: LACTATED RINGERS 1,000 ML IV SCH (06:15)
[2020-07-22] MEDS: inSUlin ASPART (NovoLOG) 1 UNIT/0.01 ML (CHARGE PER UNIT) SC SCH ×4 (06:15→20:45)
[2020-07-22 06:39] LABS: ALBUMIN 3.4 GM/DL (3.2-4.5)
[2020-07-22 06:40] LABS: POTASSIUM 4.6 MMOL/L (3.6-5.0)
[2020-07-22 06:41] LABS: CALCIUM 8.4 MG/DL (8.5-10.1)
[2020-07-22 06:42] LABS: TOTAL PROTEIN 6.7 GM/DL (6.4-8.2)
[2020-07-22 06:44] LABS: BILIRUBIN,TOTAL 0.2 MG/DL (0.1-1.0)
[2020-07-22 06:45] LABS: CREATININE SERUM 1.22 MG/DL (0.60-1.30)
[2020-07-22] MEDS ORDERED: AZITHROMYCIN 250 MG TAB (ZITHROMAX) PO SCH (09:00)
[2020-07-22] MEDS: REMDESIVIR 100 MG/NS 250 ML IVPB IV SCH ×2 (09:36)
[2020-07-22] MEDS: dexAMETHasone 6 MG TAB (DECADRON) PO SCH (09:37)
[2020-07-22] MEDS: ENOXAPARIN 40 MG/0.4 ML (LOVENOX) SYR SQ SCH ×2 (09:37→20:44)
[2020-07-22] MEDS: ALPRAZolam 1 MG (XANAX) TAB PO PRN ×2 (09:37→20:44)
[2020-07-22] MEDS: CHOLESTYRAMINE 4 GM (QUESTRAN LITE, PREVALITE) PKT PO SCH (09:37)
[2020-07-22] MEDS: ACETAMINOPHEN 325 MG TABLET PO PRN ×2 (09:37→17:31)
[2020-07-22 10:18] VITALS: BP 152/70
[2020-07-22 14:09] VITALS: BP 141/65
--- NOTE | 2020-07-22 16:49 | Progress Note ---
Subjective Subjective Date Seen by Provider: Jul 22, 2020 Time Seen by Provider: 08:50 No overnight events. Patient feels about as good as she did yesterday- not feeling any worse. She is worried about her daughter though as she has covid and is getting BAM. Review of Systems General: Fatigue (fever) HEENT: Head Aches Pulmonary: Dyspnea, Cough Cardiovascular: No: Chest Pain, Palpitations Gastrointestinal: Diarrhea; No: Nausea, Vomiting Genitourinary: No Dysuria, No Frequency Neurological: Weakness Objective Exam Vital Signs Vital Signs Date Time Temp Pulse Resp B/P (MAP) Pulse Ox O2 Delivery O2 Flow Rate FiO2 07/22/20 14:12 94 Room Air 07/22/20 14:09 36.1 82 20 141/65 (90) 94 Room Air 07/22/20 10:18 36.4 76 20 152/70 (97) 97 Room Air 07/22/20 08:00 Room Air 07/22/20 07:53 92 Room Air I & O 07/23/20 07:00 Intake Total 2950 ml Output Total 2700 ml Balance 250 ml General Appearance: No Apparent Distress Eyes: Bilateral Eye Normal Inspection, Bilateral Eye PERRL HEENT: PERRL/EOMI Neck: Non Tender, Supple Respiratory: Chest Non Tender, Lungs Clear, Normal Breath Sounds, No Accessory Muscle Use, No Respiratory Distress Cardiovascular: Regular Rate, Rhythm, No Edema Gastrointestinal: Non Tender, Soft Rectal: Deferred Back: No CVA Tenderness Extremity: Non Tender, No Calf Tenderness Neurologic/Psychiatric: Alert, Oriented x3 Skin: Normal Color, Warm/Dry Results Lab Laboratory Tests 07/21/20 20:09: Glucometer 316H 07/22/20 06:00: Sodium Level 138, Potassium Level 4.6, Chloride Level 105, Carbon Dioxide Level 22, Anion Gap 11, Blood Urea Nitrogen 17, Creatinine 1.22, Estimat Glomerular Filtration Rate 46, BUN/Creatinine Ratio 14, Glucose Level 351H, Calcium Level 8.4L, Corrected Calcium 8.9, Total Bilirubin 0.2, Aspartate Amino Transf (AST/SGOT) 27, Alanine Aminotransferase (ALT/SGPT) 34, Alkaline Phosphatase 62, Total Protein 6.7, Albumin 3.4 07/22/20 06:07: Glucometer 315H 07/22/20 10:36: Glucometer 319H Microbiology 07/21/20 Blood Culture - Preliminary, Resulted No growth 07/20/20 Influenza Types A,B Antigen (BRISSA) - Final, Complete Assessment/Plan Assessment/Plan Admission Dx COVID -19 Assessment and Plan 07/20/20- admitted for COVID -started on IVF, dexamethasone, remdesivir 07/21/20- continue dexamethasone. Adding on tessalon perles for cough. Will give patient convalescent plasma. Oxygen sats on room air is 95-96%- she is doing well. Today is day 5 of symptoms. Also added on cholestyramine to help with the diarrhea. d/c'd azithromycin as her procalcitonin level makes less lightly bacterial pneumonia. Lovenox for DVT ppx. 07/22/20- no overnight events- pt is very upset and worried about her daughter. Oxygen saturation staying above 92% on room air. Not working hard to breath. Today is day 6 of symptoms. Since she is feeling a little more heaviness in her chest we will watch another day. I do think it is more attributed to her anxiety, stress, worrying, grief. Dispo: Doing very well as she is not declining as would have been predicted based on her co-morbidities. Will reassess tomorrow. Problems: (1) Pneumonia due to COVID-19 virus (2) DMII (diabetes mellitus, type 2) Qualifiers: (3) Diarrhea (4) Hypertension (5) Hypothyroidism Admission Dx COVID -19 Clinical Quality Measures Admission Status Admission Dx COVID -19 KENDAL COLON MD Jul 22, 2020 16:49
[2020-07-22 17:27] VITALS: BP 158/74
[2020-07-22] MEDS: ASPIRIN E.C. 81 MG (ECOTRIN) TAB PO SCH (20:44)
[2020-07-22] MEDS: NAPROXEN 250 MG (NAPROSYN) TABLET PO PRN (20:44)
[2020-07-23 00:52] VITALS: BP 135/62
[2020-07-23] MEDS: RT-ALBUTEROL INHALER HFA (VENTOLIN HFA) 18 GM IH SCH ×2 (02:24→09:19)
[2020-07-23] MEDS: inSUlin ASPART (NovoLOG) 1 UNIT/0.01 ML (CHARGE PER UNIT) SC SCH (05:57)
[2020-07-23 06:10] LABS: ALBUMIN 3.2 GM/DL (3.2-4.5)
[2020-07-23 06:11] LABS: POTASSIUM 4.6 MMOL/L (3.6-5.0)
[2020-07-23 06:12] LABS: CALCIUM 8.5 MG/DL (8.5-10.1)
[2020-07-23 06:13] LABS: TOTAL PROTEIN 6.1 GM/DL (6.4-8.2)
[2020-07-23 06:15] LABS: BILIRUBIN,TOTAL 0.1 MG/DL (0.1-1.0)
[2020-07-23 06:17] LABS: CREATININE SERUM 1.18 MG/DL (0.60-1.30)
--- NOTE | 2020-07-23 07:07 | Progress Note ---
Subjective Subjective Date Seen by Provider: Jul 23, 2020 Blood sugars remaining high attributed to both her underlying diabetes and being on dexamethasone. Review of Systems General: Fatigue (fever) HEENT: Head Aches Pulmonary: Dyspnea, Cough Cardiovascular: No: Chest Pain, Palpitations Gastrointestinal: Diarrhea; No: Nausea, Vomiting Genitourinary: No Dysuria, No Frequency Neurological: Weakness Objective Exam Vital Signs Vital Signs Date Time Temp Pulse Resp B/P (MAP) Pulse Ox O2 Delivery O2 Flow Rate FiO2 07/23/20 02:24 96 Room Air 07/23/20 00:52 35.6 70 18 135/62 (86) 92 NIV CPAP 07/22/20 20:45 Room Air 07/22/20 18:12 97 Room Air 07/22/20 17:27 36.1 83 20 158/74 (102) 95 Room Air 07/22/20 14:12 94 Room Air 07/22/20 14:09 36.1 82 20 141/65 (90) 94 Room Air 07/22/20 10:18 36.4 76 20 152/70 (97) 97 Room Air 07/22/20 08:00 Room Air 07/22/20 07:53 92 Room Air I & O 07/23/20 07:00 Intake Total 2950 ml Output Total 2700 ml Balance 250 ml General Appearance: No Apparent Distress Eyes: Bilateral Eye Normal Inspection, Bilateral Eye PERRL HEENT: PERRL/EOMI Neck: Non Tender, Supple Respiratory: Chest Non Tender, Lungs Clear, Normal Breath Sounds, No Accessory Muscle Use, No Respiratory Distress Cardiovascular: Regular Rate, Rhythm, No Edema Gastrointestinal: Non Tender, Soft Rectal: Deferred Back: No CVA Tenderness Extremity: Non Tender, No Calf Tenderness Neurologic/Psychiatric: Alert, Oriented x3 Skin: Normal Color, Warm/Dry Results Lab Laboratory Tests 07/22/20 10:36: Glucometer 319H 07/22/20 17:24: Glucometer 311H 07/22/20 20:42: Glucometer 353H 07/23/20 05:40: Sodium Level 136, Potassium Level 4.6, Chloride Level 108H, Carbon Dioxide Level 17L, Anion Gap 11, Blood Urea Nitrogen 26H, Creatinine 1.18, Estimat Glomerular Filtration Rate 47, BUN/Creatinine Ratio 22, Glucose Level 323H, Calcium Level 8.5, Corrected Calcium 9.1, Total Bilirubin 0.1, Aspartate Amino Transf (AST/SGOT) 23, Alanine Aminotransferase (ALT/SGPT) 30, Alkaline Phosphatase 62, Total Protein 6.1L, Albumin 3.2 07/23/20 05:41: Glucometer 291H Microbiology 07/21/20 Blood Culture - Preliminary, Resulted No growth 07/20/20 Influenza Types A,B Antigen (BRISSA) - Final, Complete Assessment/Plan Assessment/Plan Admission Dx COVID -19 Assessment and Plan 07/20/20- admitted for COVID -started on IVF, dexamethasone, remdesivir 07/21/20- continue dexamethasone. Adding on tessalon perles for cough. Will give patient convalescent plasma. Oxygen sats on room air is 95-96%- she is doing well. Today is day 5 of symptoms. Also added on cholestyramine to help with the diarrhea. d/c'd azithromycin as her procalcitonin level makes less lightly bacterial pneu monia. Lovenox for DVT ppx. 07/22/20- no overnight events- pt is very upset and worried about her daughter. Oxygen saturation staying above 92% on room air. Not working hard to breath. Today is day 6 of symptoms. Since she is feeling a little more heaviness in her chest we will watch another day. I do think it is more attributed to her anxiety, stress, worrying, grief. 07/23/20- will give levemir 10units this AM to help with her out of control blood sugars. Dispo: Doing very well as she is not declining as would have been predicted based on her co-morbidities. Will reassess tomorrow. Problems: (1) Pneumonia due to COVID-19 virus (2) DMII (diabetes mellitus, type 2) Qualifiers: (3) Diarrhea (4) Hypertension (5) Hypothyroidism Admission Dx COVID -19 Clinical Quality Measures Admission Status Admission Dx COVID -19 KENDAL COLON MD Jul 23, 2020 07:07
[2020-07-23 08:00] VITALS: BP 151/68
[2020-07-23] MEDS ORDERED: DEXA6TAB PO (09:20)
--- NOTE | 2020-07-23 09:22 | Discharge Summary ---
Discharge Summary Hospital Course Problems/Dx: (1) Pneumonia due to COVID-19 virus Status: Acute (2) DMII (diabetes mellitus, type 2) Qualifiers: (3) Diarrhea (4) Hypertension (5) Hypothyroidism Hospital Course Date of Admission: Jul 20, 2020 at 17:41 Admission Diagnosis : Family Physician/Provider: Devyn Colon MD Date of Discharge: 07/23/20 Discharge Diagnosis: [ ] Hospital Course: [ ] Labs and Pending Lab Test: Laboratory Tests 07/22/20 10:36: Glucometer 319H 07/22/20 17:24: Glucometer 311H 07/22/20 20:42: Glucometer 353H 07/23/20 05:40: Sodium Level 136, Potassium Level 4.6, Chloride Level 108H, Carbon Dioxide Level 17L, Anion Gap 11, Blood Urea Nitrogen 26H, Creatinine 1.18, Estimat Glomerular Filtration Rate 47, BUN/Creatinine Ratio 22, Glucose Level 323H, Calcium Level 8.5, Corrected Calcium 9.1, Total Bilirubin 0.1, Aspartate Amino Transf (AST/SGOT) 23, Alanine Aminotransferase (ALT/SGPT) 30, Alkaline Phosphatase 62, Total Protein 6.1L, Albumin 3.2 07/23/20 05:41: Glucometer 291H Microbiology 07/21/20 Blood Culture - Preliminary, Resulted No growth 07/20/20 Influenza Types A,B Antigen (BRISSA) - Final, Complete Home Meds Active Dexamethasone 6 Mg Tablet 6 Mg PO DAILY Reported Chlortabs (Chlorpheniramine Maleate) 4 Mg Tablet 4 Mg PO Q4H PRN Benadryl (Diphenhydramine HCl) 25 Mg Capsule 25 Mg PO HS PRN Flonase Allergy Relief (Fluticasone Propionate) 9.9 Ml [place].susp 2 Waves NS DAILY PRN Calcium Magnesium + D Tablet (Calcium Carb/Magnesium Oxid/D3) 1 Each Tablet 1 Each PO HS Ventolin Hfa (Albuterol Sulfate) 1 Puff Puff 1 Puff INH Q8H PRN Pantoprazole Sodium 40 Mg Tablet.dr 40 Mg PO HS Metformin HCl ER (Metformin HCl) 500 Mg Tab.er.24h 500 Mg PO HS Alprazolam 1 Mg Tablet 1 Mg PO HS PRN MDD 1MG Miconazole Nitrate 45 Gm Cream.appl 1 Applic TOP PRN PRN Aspirin EC (Aspirin) 81 Mg Tablet.dr 81 Mg PO HS Fluconazole 150 Mg Tablet 150 Mg PO DAILY/DURING ANTIBIOTIC USE Naproxen Sodium 220 Mg Tablet 440 Mg PO HS PRN Alprazolam 1 Mg Tablet 0.25-0.5 Mg PO QID PRN MDD 1MG Propranolol HCl 40 Mg Tablet 40 Mg PO HS Assessment/Pt Instructions -Discharged to home. -Gradually get back into daily routine (home routine)- as you can not return to work until your quarantine ends. -3 days of dexamethasone. -resume metformin -monitor blood sugar. -follow up at [facility] in 2 weeks Discharge Physical Examination Vital Signs Vital Signs Date Time Temp Pulse Resp B/P (MAP) Pulse Ox O2 Delivery O2 Flow Rate FiO2 07/23/20 09:19 99 Room Air 07/23/20 08:00 36.0 73 20 151/68 (95) 07/21/20 16:02 21 Allergies: Coded Allergies: Penicillins (Unverified Allergy, Severe, HIVES, THROAT SWELLS, DIFFICULTY BREATHING, 02/10/07) doxycycline (Unverified Allergy, Severe, DIFFICULTY BREATHING, HIVES, THROAT SWELLS, 02/10/07) hydrocodone (Verified Allergy, Intermediate, "MAKES HER FEEL VERY BAD", 12/15/15) latex (Verified Allergy, Mild, RASH, 11/07/15) Cephalosporins (Unverified Allergy, Unknown, 12/16/15) celecoxib (Unverified Allergy, Unknown, 11/08/15) Uncoded Allergies: TAPE (Adverse Reaction, Mild, RASH, WHELPS ON SKIN WHERE TAPE WAS., 02/10/07) Discharge Summary Date of Admission Jul 20, 2020 at 17:41 Date of Discharge Discharge Diagnosis (1) Pneumonia due to COVID-19 virus Status: Acute (2) DMII (diabetes mellitus, type 2) Qualifiers: (3) Diarrhea (4) Hypertension (5) Hypothyroidism DEVYN COLON MD Jul 23, 2020 09:22
[2020-07-23] MEDS: REMDESIVIR 100 MG/NS 250 ML IVPB IV SCH ×2 (09:54)
[2020-07-23] MEDS: ENOXAPARIN 40 MG/0.4 ML (LOVENOX) SYR SQ SCH (09:55)
[2020-07-23] MEDS: dexAMETHasone 6 MG TAB (DECADRON) PO SCH (09:55)
[2020-07-23] MEDS: ALPRAZolam 1 MG (XANAX) TAB PO PRN (09:56)
[2020-07-23] MEDS: CHOLESTYRAMINE 4 GM (QUESTRAN LITE, PREVALITE) PKT PO SCH (09:56)
[2020-07-23 14:31] VITALS: BP 151/68
== END 2020-07-23 14:37 | disposition home or self-care (01) | DRG 177 ==
LOC: EDUNIT# 15:07 → ER 15:08 → 4TH 17:41 → ER 19:13 → 4TH 20:13
PROVIDERS: ADMIT Family Medicine; ATTEND Family Medicine
PROC: XW13325 Transfusion of Convalescent Plasma (Nonautologous) into Peripheral Vein, Percutaneous Approach, New Technology Group 5 (ICD-10-PCS; principal; 2020-07-21)
PROC: XW033E5 Introduction of Remdesivir Anti-infective into Peripheral Vein, Percutaneous Approach, New Technology Group 5 (ICD-10-PCS; 2020-07-21)
DX: U07.1 COVID-19 (principal); J12.82 Pneumonia due to coronavirus disease 2019; Z68.42 Body mass index [BMI] 45.0-49.9, adult; R19.7 Diarrhea, unspecified; E66.9 Obesity, unspecified; E11.9 Type 2 diabetes mellitus without complications; I10 Essential (primary) hypertension; K21.9 Gastro-esophageal reflux disease without esophagitis; K57.90 Diverticulosis of intestine, part unspecified, without perforation or abscess without bleeding; M19.90 Unspecified osteoarthritis, unspecified site; F41.9 Anxiety disorder, unspecified; E03.9 Hypothyroidism, unspecified; D71 Functional disorders of polymorphonuclear neutrophils; Z79.82 Long term (current) use of aspirin; Z88.0 Allergy status to penicillin; Z88.8 Allergy status to other drugs, medicaments and biological substances; Z88.1 Allergy status to other antibiotic agents; Z91.040 Latex allergy status
CPT/HCPCS: 36415; 71045; 71275; 80053; 82962; 83605; 84145; 85025; 85379; 86141; 86900; 86901; 87040; 87635; 87804; 94640; 94664; 94760; 96360

== ENCOUNTER → 2020-11-04 | Outpatient (CLI) | payer OTHER ==
[~2020-11-04] MED LIST changes: +CALC-408 PO; +CHLO-159 PO; +DEXA6TAB PO; +FLUT9.9S NS; +PANT40TA52 PO; +RT-ALBUINH INH
[2020-11-04 09:47] LABS: POTASSIUM 4.3 MMOL/L (3.6-5.0)
[2020-11-04 09:48] LABS: CALCIUM 10.1 MG/DL (8.5-10.1)
[2020-11-04 09:49] LABS: TOTAL PROTEIN 7.1 GM/DL (6.4-8.2)
[2020-11-04 09:51] LABS: BILIRUBIN,TOTAL 0.4 MG/DL (0.1-1.0)
[2020-11-04 09:53] LABS: CREATININE SERUM 0.96 MG/DL (0.60-1.30)
[2020-11-04 10:16] LABS: TSH (THYROID ANALYZER) 2.78 UIU/ML (0.35-4.94)
== END ==
LOC: LAB 09:23
PROVIDERS: ATTEND Nurse Practitioner Family
DX: E11.9 Type 2 diabetes mellitus without complications (principal); K76.0 Fatty (change of) liver, not elsewhere classified; L65.9 Nonscarring hair loss, unspecified; E66.9 Obesity, unspecified; I10 Essential (primary) hypertension
CPT/HCPCS: 36415; 80053; 80061; 83036; 84443; 85652

== ENCOUNTER → 2020-12-03 | Outpatient (CLI) | payer OTHER ==
[~2020-12-03] MED LIST changes: -MICO45CR11 TOP; +MICO45CR50 TOP
== END ==
LOC: LAB 14:24
DX: U07.1 COVID-19 (principal)
CPT/HCPCS: 36415; 86769

== ENCOUNTER → 2021-01-15 | Outpatient (CLI) | payer OTHER ==
--- NOTE | 2021-01-15 13:23 | Diagnostic Imaging Report ---
PROCEDURE: CT urinary tract, rule out kidney stone. TECHNIQUE: Multiple contiguous axial images were obtained through the abdomen and pelvis without the use of intravenous contrast. Auto Exposure Controls were utilized during the CT exam to meet ALARA standards for radiation dose reduction. INDICATION: Right flank pain 3 weeks ago was diagnosed with urinary tract infection. Previous partial left nephrectomy for treatment of malignancy. Compared with abdominal pelvic CT of Findings: There is a right-sided gonadal vein phlebolith unchanged from the previous exam seen on axial image 80 of 130. There is no right-sided hydroureteronephrosis and no perinephric or periureteric edema or fluid collection. Renal parenchymal evaluation limited by the absence of vascular contrast. Partly exophytic cyst off the upper pole of the left kidney unchanged from the previous contrasted study measuring 1.3 cm. There is a calculus layering within the dependent portion of the left renal pelvis measuring 6.8 mm. Adjacent to the anterior margin of the left extrarenal pelvis is a calcified nodule measuring 1.4 cm previously 1.1 cm. There is a calyceal stone within left lower pole calyx measuring 6.7 mm. While the left extrarenal pelvis is mildly ectatic there is no consuelo hydronephrosis and no opaque left-sided ureteral stone is found. No bladder calculus. No abdominal, pelvic, mesenteric or retroperitoneal lymphadenopathy. The atherosclerotic aorta is nonaneurysmal. The gallbladder surgically absent. No pathological biliary ductal dilatation. The spleen, adrenals and pancreas were normal. No acute abdominal wall pathology. There is no appendicitis or diverticulitis. The uterus absent or atrophic. There is no adnexal lesion. The unopacified urinary bladder unremarkable. Extra ureteral pelvic phleboliths stable. IMPRESSION: Intrarenal and intrapelvic left renal calculi without consuelo hydronephrosis. Calcified nodule ventral to the base of the inferior and anterior aspect of the left renal pelvis measures slightly larger than on prior in this patient with previous treatment for renal malignancy. That nodules evaluation is limited by the absence of contrast. If iodinated contrast is not clinically tolerable nonemergent outpatient contrast-enhanced MRI renal protocol would be recommended or consideration for ultrasound to see if there is a vascularized soft tissue component associated with this mass. The right kidney appeared stable and normal. No bowel, biliary or urinary tract obstruction, ascites, fluid collection or lymphadenopathy. Dictated by: Dictated on workstation # [id number]
== END ==
LOC: RAD 12:23
PROVIDERS: ATTEND Internal Medicine
DX: N20.0 Calculus of kidney (principal); N28.89 Other specified disorders of kidney and ureter; Z85.528 Personal history of other malignant neoplasm of kidney; Z90.5 Acquired absence of kidney
CPT/HCPCS: 74176

== ENCOUNTER 2021-02-05 13:17 | Emergency (ER) | payer OTHER ==
[~2021-02-05] VITALS: Ht 157 cm; Wt 119.5 kg
[~2021-02-05 13:17] MED LIST changes: -DOXY100C2 PO; +DOXY100C5 PO
[2021-02-05] MEDS ORDERED: KETOROLAC 30 MG/ML VIAL IVP ONE (13:30)
--- NOTE | 2021-02-05 13:43 | ED GU-Female ---
General Chief Complaint: Abdominal/GI Problems Stated Complaint: L FLANK PAIN Source: patient Exam Limitations: no limitations (TAN GRIMM APRN) History of Present Illness Date Seen by Provider: Feb 05, 2021 Time Seen by Provider: 13:39 Initial Comments To Er with c/o left flank pain sudden onset today at 10pm. No fever or chills no vomiting. no dysuria or bowel changes. Hx of left kidney cancer she states, she's worried about a recurrence. Timing/Duration: constant Severity/Quality: moderate Location: left flank Radiation: none Activities at Onset: none Prior Genitourinary Problems: none Associated Symptoms: denies symptoms (TAN GRIMM APRN) Allergies and Home Medications Allergies Coded Allergies: Penicillins (Unverified Allergy, Severe, HIVES, THROAT SWELLS, DIFFICULTY BREATHING, 02/10/07) doxycycline (Unverified Allergy, Severe, DIFFICULTY BREATHING, HIVES, THROAT SWELLS, 02/10/07) hydrocodone (Verified Allergy, Intermediate, "MAKES HER FEEL VERY BAD", 12/15/15) latex (Verified Allergy, Mild, RASH, 11/07/15) Cephalosporins (Unverified Allergy, Unknown, 12/16/15) celecoxib (Unverified Allergy, Unknown, 11/08/15) empagliflozin (Verified Allergy, Unknown, 02/05/21) Uncoded Allergies: TAPE (Adverse Reaction, Mild, RASH, WHELPS ON SKIN WHERE TAPE WAS., 02/10/07) Patient Home Medication List Home Medication List Reviewed: Yes (TAN GRIMM APRN) Albuterol Sulfate (Ventolin Hfa) 1 Puff Puff, 1 PUFF INH Q8H PRN for SHORTNESS OF BREATH, (Reported) Entered as Reported by: WALTER VALENTINE on 07/21/20 1505 Alprazolam (Alprazolam) 1 Mg Tablet, 0.25-0.5 MG PO QID PRN for ANXIETY, (Reported) Entered as Reported by: DUSTIN DAVILA on 12/26/19 1242 Alprazolam (Alprazolam) 1 Mg Tablet, 1 MG PO HS PRN for ANXIETY, (Reported) Entered as Reported by: WALTER VALENTINE on 07/21/20 1505 Aspirin (Aspirin EC) 81 Mg Tablet.dr, 81 MG PO HS, (Reported) Entered as Reported by: DUSTIN DAVILA on 12/26/19 1242 Calcium Carb/Magnesium Oxid/D3 (Calcium Magnesium + D Tablet) 1 Each Tablet, 1 EACH PO HS, (Reported) Entered as Reported by: WALTER VALENTINE on 07/21/20 1505 Chlorpheniramine Maleate (Chlortabs) 4 Mg Tablet, 4 MG PO Q4H PRN for ALLERGIES, (Reported) Entered as Reported by: WALTER VALENTINE on 07/21/20 1505 Dexamethasone (Dexamethasone) 6 Mg Tablet, 6 MG PO DAILY Prescribed by: KENDAL COLON on 07/23/20 0920 Diphenhydramine HCl (Benadryl) 25 Mg Capsule, 25 MG PO HS PRN for SLEEP, (Reported) Entered as Reported by: WALTER VALENTINE on 07/21/20 1505 Fluconazole (Fluconazole) 150 Mg Tablet, 150 MG PO DAILY/DURING ANTIBIOTIC USE, (Reported) Entered as Reported by: DUSTIN DAVILA on 12/26/19 1242 Fluticasone Propionate (Flonase Allergy Relief) 9.9 Ml [place].susp, 2 SPRAY NS DAILY PRN for CONGESTION, (Reported) Entered as Reported by: WALTER VALENTINE on 07/21/20 1505 Metformin HCl (Metformin HCl ER) 500 Mg Tab.er.24h, 500 MG PO HS, (Reported) Entered as Reported by: WALTER VALENTINE on 07/21/20 1505 Miconazole Nitrate (Miconazole Nitrate) 45 Gm Cream.appl, 1 APPLIC TOP PRN PRN for YEAST RASH, (Reported) Entered as Reported by: DUSTIN DAVILA on 12/26/19 1245 Naproxen Sodium (Naproxen Sodium) 220 Mg Tablet, 440 MG PO HS PRN for PAIN-MILD (1-4), (Reported) Entered as Reported by: DUSTIN DAVILA on 12/26/19 1242 Pantoprazole Sodium (Pantoprazole Sodium) 40 Mg Tablet.dr, 40 MG PO HS, (Reported) Entered as Reported by: WALTER VALENTINE on 07/21/20 1505 Propranolol HCl (Propranolol HCl) 40 Mg Tablet, 40 MG PO HS, (Reported) Entered as Reported by: SILVANO APONTE on 12/15/15 0846 Review of Systems Review of Systems Constitutional: see HPI EENTM: see HPI Respiratory: no symptoms reported Cardiovascular: no symptoms reported Gastrointestinal: LLQ Genitourinary: no symptoms reported Musculoskeletal: no symptoms reported Skin: no symptoms reported Psychiatric/Neurological: No Symptoms Reported Endocrine: No Symptoms Reported Hematologic/Lymphatic: No Symptoms Reported (TAN GRIMM APRN) Past Ghzirlt-Yuwrdv-Amwmir Hx Immunizations Up To Date Tetanus Booster (TDap): Unknown (TAN GRIMM APRN) Seasonal Allergies Seasonal Allergies: Yes (TAN GRIMM APRN) Past Medical History Surgeries: Yes (SURGERY ON BOILS , HEMORRHOIDECTOMY, TUMOR REMOVED FROM L KIDNEY) Abdominal, Section, Gallbladder, Hysterectomy Respiratory: Yes ("EXERCISE INDUCED ASTHMA") Asthma, Pneumonia, Chronic Bronchitis Currently Using CPAP: No Currently Using BIPAP: No Cardiac: Yes Angina, Hypertension, Palpitations Neurological: No 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 Disorders: No 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 Sexually Transmitted Disease: No Kidney Infection, Kidney Stones Gastrointestinal: Yes (Fatty Liver Disease, UMBILICAL HERNIA) Gastroesophageal Reflux, Diverticulosis, Polyps, Ulcer, Irritable Bowel Musculoskeletal: Yes (STENOSIS IN LOWER BACK, OSTEOARTHRITIS, DJD) Degenerate Disk Disease, Arthritis, Fractures Endocrine: Yes Hypothyroidsim, Diabetes, Non-Insulin dep Cancer: Yes Kidney Did You Recieve Any Treatments: Yes What Type of Treatment Did You: Surgical Intervention Psychosocial: Yes (PANIC ATTACKS ) Anxiety Integumentary: No Blood Disorders: No Adverse Reaction/Blood Tranf: No (TAN GRIMM APRN) Family Medical History Cardiovascular disease 19 FATHER, Onset:Unknown Completed stroke 19 FATHER, Onset:Unknown Congenital heart disease Dementia 19 FATHER, Onset:Unknown Diabetes mellitus 19 FATHER, Onset:Unknown FH: COPD (chronic obstructive pulmonary disease) 19 MOTHER, Onset:Unknown Hypertension 19 FATHER, Onset:Unknown Myocardial infarction 19 FATHER, Onset:Unknown Thyroid disease 19 MOTHER, Onset:Unknown No Pertinent Family Hx (ATN GRIMM APRN) Physical Exam Vital Signs Vital Signs - First Documented 02/05/21 13:21 Temp 36.0 Pulse 84 Resp 18 B/P (MAP) 164/72 (102) Pulse Ox 97 O2 Delivery Room Air (STEPHENLEWA K DO) Vital Signs Capillary Refill : (TAN GRIMM APRN) Height, Weight, BMI Height: 5'3.00" Weight: 285lbs. 0.0oz. 129.276727dh; 48.43 BMI Method:Stated General Appearance: WD/WN, no apparent distress HEENT: PERRL/EOMI, normal ENT inspection Neck: non-tender, full range of motion Respiratory: no respiratory distress, no accessory muscle use Gastrointestinal: normal bowel sounds, soft, tenderness Extremities: normal range of motion, non-tender Neurologic/Psychiatric: alert, normal mood/affect, oriented x 3 Skin: normal color, warm/dry (TAN GRIMM APRN) Progress/Results/Core Measures Suspected Sepsis SIRS Temperature: Pulse: Respiratory Rate: Laboratory Tests 02/05/21 13:51: White Blood Count 12.0H Blood Pressure / Mean: Laboratory Tests 02/05/21 13:51: Creatinine 1.02, Platelet Count 312 (TAN GRIMM APRN) Results/Orders Lab Results Laboratory Tests Test 02/05/21 13:51 Range/Units White Blood Count 12.0 H 4.3-11.0 10^3/uL Red Blood Count 3.95 3.80-5.11 10^6/uL Hemoglobin 10.9 L 11.5-16.0 g/dL Hematocrit 34 L 35-52 % Mean Corpuscular Volume 87 80-99 fL Mean Corpuscular Hemoglobin 28 25-34 pg Mean Corpuscular Hemoglobin Concent 32 32-36 g/dL Red Cell Distribution Width 13.6 10.0-14.5 % Platelet Count 312 130-400 10^3/uL Mean Platelet Volume 11.3 9.0-12.2 fL Immature Granulocyte % (Auto) 0 % Neutrophils (%) (Auto) 66 42-75 % Lymphocytes (%) (Auto) 20 12-44 % Monocytes (%) (Auto) 9 0-12 % Eosinophils (%) (Auto) 5 0-10 % Basophils (%) (Auto) 0 0-10 % Neutrophils # (Auto) 7.9 H 1.8-7.8 10^3/uL Lymphocytes # (Auto) 2.4 1.0-4.0 10^3/uL Monocytes # (Auto) 1.1 H 0.0-1.0 10^3/uL Eosinophils # (Auto) 0.6 H 0.0-0.3 10^3/uL Basophils # (Auto) 0.0 0.0-0.1 10^3/uL Immature Granulocyte # (Auto) 0.1 0.0-0.1 10^3/uL Urine Color YELLOW Urine Clarity CLEAR Urine pH 5.5 5-9 Urine Specific [place] 1.025 H 1.016-1.022 Urine Protein 1+ H NEGATIVE Urine Glucose (UA) NEGATIVE NEGATIVE Urine Ketones NEGATIVE NEGATIVE Urine Nitrite NEGATIVE NEGATIVE Urine Bilirubin NEGATIVE NEGATIVE Urine Urobilinogen 0.2 < = 1.0 MG/DL Urine Leukocyte Esterase NEGATIVE NEGATIVE Urine RBC (Auto) TRACE-I NEGATIVE Urine RBC 0-2 /HPF Urine WBC 0-2 /HPF Urine Squamous Epithelial Cells 2-5 /HPF Urine Crystals NONE /LPF Urine Bacteria TRACE /HPF Urine Casts NONE /LPF Urine Mucus NEGATIVE /LPF Urine Culture Indicated NO Sodium Level 138 135-145 MMOL/L Potassium Level 4.2 3.6-5.0 MMOL/L Chloride Level 106 98-107 MMOL/L Carbon Dioxide Level 19 L 21-32 MMOL/L Anion Gap 13 5-14 MMOL/L Blood Urea Nitrogen 22 H 7-18 MG/DL Creatinine 1.02 0.60-1.30 MG/DL Estimat Glomerular Filtration Rate 56 BUN/Creatinine Ratio 22 Glucose Level 122 H 70-105 MG/DL Calcium Level 9.5 8.5-10.1 MG/DL (STEPHEN,MALATHI K DO) Medications Given in ED Current Medications Medications Dose Ordered Sig/Raheem Route Start Time Stop Time Status Last Admin Dose Admin Ketorolac Tromethamine 15 mg ONCE ONCE IVP 02/05/21 13:30 02/05/21 13:31 DC 02/05/21 13:53 15 MG (STEPHEN,MALATHI K DO) Vital Signs/I&O 02/05/21 02/05/21 13:21 14:51 Temp 36.0 36.0 Pulse 84 80 Resp 18 18 B/P (MAP) 164/72 (102) 158/90 Pulse Ox 97 97 O2 Delivery Room Air Room Air (STEPHEN,MALATHI K DO) Vital Signs/I&O Capillary Refill : (TAN GRIMM APRN) Departure Communication (Admissions) 144-discussed with her the need to follow-up with Dr. Brandt. (TAN GRIMM APRN) Impression Primary Impression: Left flank pain Disposition: 01 HOME, SELF-CARE Condition: Stable Departure-Patient Inst. Decision time for Depature: 14:32 (TAN GRIMM APRN) Referrals: JENNIFER SUMNER MD (PCP/Family) Primary Care Physician Patient Instructions: Flank Pain ED ATTENDING PHYSICIAN NOTE: I WAS PHYSICALLY PRESENT ER PHYSICIAN WHEN THIS PATIENT WAS IN ER, BUT I WAS NOT INVOLVED WITH DECISION MAKING OR ANY CARE OF THIS PATIENT. (MALATHI MITCHELL DO) TAN GRIMM APRN Feb 05, 2021 13:43 MALATHI MITCHELL DO Feb 05, 2021 15:24
[2021-02-05 14:11] LABS: BASOPHILS % (AUTO) 0 % (0-10); EOSINOPHILS # (AUTO) 0.6 10^3/uL (0.0-0.3); EOSINOPHILS % (AUTO) 5 % (0-10); HEMATOCRIT 34 % (35-52); HEMOGLOBIN 10.9 g/dL (11.5-16.0); LYMPHOCYTES # (AUTO) 2.4 10^3/uL (1.0-4.0); LYMPHOCYTES % (AUTO) 20 % (12-44); MEAN CORPUSCULAR HEMOGLOBIN 28 pg (25-34); MEAN CORPUSCULAR HGB CONC 32 g/dL (32-36); MEAN CORPUSCULAR VOLUME 87 fL (80-99); MEAN PLATELET VOLUME 11.3 fL (9.0-12.2); MONOCYTES # (AUTO) 1.1 10^3/uL (0.0-1.0); MONOCYTES % (AUTO) 9 % (0-12); NEUTROPHILS # (AUTO) 7.9 10^3/uL (1.8-7.8); NEUTROPHILS % (AUTO) 66 % (42-75); PLATELET COUNT 312 10^3/uL (130-400)
[2021-02-05 14:12] LABS: BILIRUBIN,URINE NEGATIVE (NEGATIVE); CLARITY,URINE CLEAR; COLOR,URINE YELLOW; GLUCOSE, URINE (UA) NEGATIVE (NEGATIVE); KETONES,URINE NEGATIVE (NEGATIVE); LEUKOCYTE ESTERASE ,URINE NEGATIVE (NEGATIVE); NITRITE,URINE NEGATIVE (NEGATIVE); PH,URINE 5.5 (5-9); PROTEIN,URINE 1+ (NEGATIVE)
[2021-02-05 14:21] LABS: BACTERIA,URINE TRACE /HPF; POTASSIUM 4.2 MMOL/L (3.6-5.0); RBC,URINE 0-2 /HPF; WBC,URINE 0-2 /HPF
[2021-02-05 14:23] LABS: CALCIUM 9.5 MG/DL (8.5-10.1)
[2021-02-05 14:27] LABS: CREATININE SERUM 1.02 MG/DL (0.60-1.30)
--- NOTE | 2021-02-05 14:27 | Diagnostic Imaging Report ---
EXAMINATION: CT abdomen and pelvis without contrast. TECHNIQUE: Multiple contiguous axial images were obtained through the abdomen and pelvis without the use of intravenous contrast. All CT scans use one or more of the following dose optimizing techniques: Automated exposure control, MA and/or KvP adjustment based on patient size and exam type or iterative reconstruction. HISTORY: Kidney stone. COMPARISON: 01/15/2021. FINDINGS: Lung bases: The lung bases are clear. Solid organs: There is diffuse hypoattenuation of the liver compatible with hepatic steatosis. The gallbladder is surgically absent. There is no biliary ductal dilation. Pancreas is normal. Spleen is normal. Adrenal glands are normal. The right kidney is unremarkable without visualized calculus or hydronephrosis. Stable cortical scarring and calcifications along the anterior left mid kidney. There is a nonobstructing left renal calculus measuring up to 0.6 cm. There is no hydronephrosis. Left renal cortical cysts are present and require no follow-up. Bowel: The stomach and small bowel are normal without obstruction. The colon and appendix are normal. Peritoneum: There is no intraperitoneal free fluid or free air. No suspicious lymphadenopathy. Vasculature: Calcification of the aorta without aneurysm. Musculoskeletal: Degenerative changes of the spine without suspicious osseous lesion or compression fracture. There is a small fat-containing periumbilical hernia. Pelvis: The uterus is surgically absent. No adnexal mass. The urinary bladder is normal. IMPRESSION: 1. Nonobstructing 0.6 cm left renal calculus. 2. Stable left anterior renal cortical scarring and coarse calcifications, unchanged from prior exam. No hydronephrosis. 3. Hepatic steatosis. Dictated by: Dictated on workstation # [id number]
--- NOTE | 2021-02-05 14:32 | Diagnostic Imaging Report ---
INDICATION: Left flank pain. FINDINGS: There is stool in the colon. The fecal load may be mildly elevated; correlate for mild constipation. There was, however, no evidence for obstruction or consuelo impaction. No suspicious calcifications. There are clips in the gallbladder fossa. There is lower lumbar degenerative disease, chronic. IMPRESSION: Equivocal findings for mild constipation. No acute appearing abnormality or suspicious calcifications found. Dictated by: Dictated on workstation # [id number]
[2021-02-05 14:51] VITALS: BP 158/90
== END 2021-02-05 14:49 | disposition home or self-care (01) ==
LOC: EDUNIT# 13:17 → ER 13:18
DX: R10.9 Unspecified abdominal pain (principal); J45.909 Unspecified asthma, uncomplicated; I10 Essential (primary) hypertension; F41.9 Anxiety disorder, unspecified; K21.9 Gastro-esophageal reflux disease without esophagitis; E11.9 Type 2 diabetes mellitus without complications; Z79.82 Long term (current) use of aspirin; Z79.84 Long term (current) use of oral hypoglycemic drugs; Z79.899 Other long term (current) drug therapy
CPT/HCPCS: 36415; 74018; 74176; 80048; 81000; 85025

== ENCOUNTER → 2021-02-09 | Outpatient (CLI) | payer OTHER ==
--- NOTE | 2021-02-09 18:40 | Diagnostic Imaging Report ---
INDICATION: Left renal calculus. COMPARISON: CT dated 02/05/2021 FINDINGS: Single frontal supine radiographic view of the abdomen was obtained. Small bowel loops are nondistended. There is no large collection of free intraperitoneal air. No unexpected extraosseous calcifications or radiopaque foreign bodies are seen. Osseous structures show age-related degenerative changes to the spine. IMPRESSION: 1. Nonobstructive small bowel gas pattern. 2. No unexpected extraosseous calcifications are identified. Previously described renal calculus may be inconspicuous. Dictated by: Dictated on workstation # [id number]
== END ==
LOC: RAD 14:20
PROVIDERS: ATTEND Urology
DX: N20.0 Calculus of kidney (principal)
CPT/HCPCS: 74018

== ENCOUNTER → 2021-02-13 | Outpatient (CLI) | payer OTHER ==
[~2021-02-13] MED LIST changes: +GADOBUTROL 15 MMOL/15 ML (GADAVIST) VIAL IV ONE
--- NOTE | 2021-02-13 17:45 | Diagnostic Imaging Report ---
EXAMINATION: MRI of the abdomen with and without contrast. TECHNIQUE: Multiplanar, multisequence MR images of the abdomen were obtained with and without intravenous contrast. HISTORY: Renal cancer status post partial nephrectomy COMPARISON: None available. FINDINGS: The liver is normal size. There is mild hepatic steatosis. No suspicious liver lesions are seen. No surface nodularity. The gallbladder is absent. There is no biliary ductal dilation. Pancreas is normal. The pancreatic duct is normal. Spleen is normal. Adrenal glands are normal. There has been a partial left nephrectomy, left lower pole renal lesion measuring 11 mm is intrinsically intermediate T1 signal without contrast enhancement consistent with a proteinaceous or hemorrhagic cyst. No enhancing renal lesions are seen. There is no hydronephrosis. Visualized bowel is normal. No lymphadenopathy is seen. Lung bases are clear. No osseus lesions are seen. IMPRESSION: 1. No suspicious renal lesions. There is a proteinaceous or hemorrhagic cyst on the left but no solid enhancing lesions identified. Dictated by: Dictated on workstation # [id number]
== END ==
LOC: RAD 13:44
PROVIDERS: ATTEND Nurse Practitioner Family
DX: N28.1 Cyst of kidney, acquired (principal); Z85.828 Personal history of other malignant neoplasm of skin; Z90.5 Acquired absence of kidney
CPT/HCPCS: 74183

== ENCOUNTER 2021-02-24 05:42 | Outpatient (CLI) | payer OTHER ==
[~2021-02-24] VITALS: Ht 160 cm; Wt 122.3 kg
[~2021-02-24 05:42] MED LIST changes: -GADOBUTROL 15 MMOL/15 ML (GADAVIST) VIAL IV ONE
[2021-02-26] MEDS ORDERED: TIOT4MIS3 IH (16:03)
[2021-02-26] MEDS ORDERED: SEMA7TAB PO (16:03)
[2021-02-26] MEDS ORDERED: ESCI-2 PO (16:03)
== END 2021-02-26 16:11 | disposition home or self-care (01) ==
LOC: PREOP 05:42
PROVIDERS: ATTEND Urology
DX: Z01.818 Encounter for other preprocedural examination (principal)

== ENCOUNTER 2021-03-03 06:23 | Day surgery (SDC) | payer OTHER ==
[~2021-03-03] VITALS: Ht 160 cm; Wt 122.3 kg
[2021-03-03] VITALS (9 sets, daily range): BP systolic 137–166; BP diastolic 71–86
[~2021-03-03 06:23] MED LIST changes: +ESCI-2 PO; +SEMA7TAB PO; +TIOT4MIS3 IH
--- NOTE | 2021-03-03 07:09 | Progress Note-Pre Operative ---
Pre-Operative Progress Note H&P Reviewed The H&P was reviewed, patient examined and no changes noted. Date Seen by Provider: Mar 03, 2021 Time Seen by Provider: 07:08 Date H&P Reviewed: Mar 03, 2021 Time H&P Reviewed: 07:08 Pre-Operative Diagnosis: LT RENAL STONE ANDRZEJ WIN MD Mar 03, 2021 07:09
[2021-03-03] MEDS: LACTATED RINGERS 1,000 ML IV PRN ×2 (07:27→08:35)
[2021-03-03] MEDS ORDERED: FLUC150T2 PO (07:35)
--- NOTE | 2021-03-03 07:39 | Diagnostic Imaging Report ---
ABDOMEN/KUB 1VIEW INDICATION: Status post lithotripsy. COMPARISON: 02/09/2021 FINDINGS AND IMPRESSION: 1. No appreciable renal calculi. 2. Scattered pelvic phleboliths are unchanged. Dictated by: Dictated on workstation # [id number]
[2021-03-03] MEDS ORDERED: SEVOFLURANE (ULTANE) 15 ML INHAL SOLN ONE ×3 (07:44→09:06)
[2021-03-03] MEDS ORDERED: MIDAZOLAM 2 MG/2 ML (VERSED) VIAL ONE (07:44)
[2021-03-03] MEDS ORDERED: LIDOCAINE PF 2% 5 ML (XYLOCAINE) VIAL ONE (07:44)
[2021-03-03] MEDS ORDERED: proPOfol 200 MG/20 ML (DIPRIVAN) VIAL IV ONE (07:44)
[2021-03-03] MEDS ORDERED: ONDANSETRON 4 MG/2 ML (SDV) Z0FRAN ONE (07:44)
[2021-03-03] MEDS ORDERED: fentaNYL INJ 100 MCG/2 ML AMP ONE (07:44)
--- NOTE | 2021-03-03 08:41 | Progress Note-Post Operative ---
Post-Operative Progess Note Surgeon (s)/Draw End Hand (s) Surgeon ANDRZEJ WIN MD Draw End Hand: NONE Pre-Operative Diagnosis LT RENAL STONE Post-Operative Diagnosis SAME Procedure & Operative Findings Date of Procedure 03/03/21 Procedure Performed/Findings CYSTOSCOPY, LT RETROGRADE UROGRAM AND LT ESWL Anesthesia Type GENERAL Estimated Blood Loss Estimated blood loss (mL): NONE Specimens/Packing Specimens Removed NONE Packing: NONE ANDRZEJ WIN MD Mar 03, 2021 08:41
--- NOTE | 2021-03-03 08:44 | Discharge Inst-Urology ---
Discharge Inst-Urology Reconcile Patient Problems Problems Reviewed?: Yes Final Diagnosis LT RENAL STONE Patient Instructions/Follow Up Plan/Assessment/Instructions Please make appointment to been seen in office in [address] weeks. [address] KUB on way home Stay off ASA KUB on way home Post ESWL instructions Increase oral fluids for 48 hours and then as needed. Diet and Activity as tolerated. If questions or concerns contact your physician Or seek help at emergency department. ANDRZEJ WIN MD Mar 03, 2021 08:44
[2021-03-03] MEDS ORDERED: FUROSEMIDE 40 MG/4 ML INJ (LASIX) ONE (08:48)
[2021-03-03] MEDS ORDERED: ONDANSETRON 4 MG/2 ML (SDV) Z0FRAN IVP PRN (09:30)
[2021-03-03] MEDS ORDERED: fentaNYL INJ 100 MCG/2 ML AMP IVP ONE (09:30)
[2021-03-03] MEDS ORDERED: MEPERIDINE (DEMEROL) INJ 50 MG/ML IVP ONE (09:30)
[2021-03-03] MEDS ORDERED: IOHEXOL 300 MG/ML 30 ML (OMNIPAQUE 300) VIAL INJ ONE (10:00)
[2021-03-03] MEDS ORDERED: TMSL.4C PO (10:32)
[2021-03-03] MEDS ORDERED: NITR-65 PO (10:32)
--- NOTE | 2021-03-03 12:01 | Diagnostic Imaging Report ---
EXAMINATION: Abdomen 1 view HISTORY: POST ESWL COMPARISON: 03/03/2021 FINDINGS: There is a moderate amount of gas and stool throughout the colon. Nonobstructive bowel gas pattern. No radiopaque foreign body. The visualized renal calculi are seen. Stable calcifications in the pelvis. The lung bases are clear. Degenerative changes of the hips and spine. Osseous structures are otherwise intact. IMPRESSION: No visualized renal calculi. Stable calcifications in the pelvis. Dictated by: Dictated on workstation # [id number]
--- NOTE | 2021-03-03 19:19 | OPERATIVE REPORT ---
DATE OF SERVICE: 03/03/2021 PREOPERATIVE DIAGNOSIS: Left renal stone. POSTOPERATIVE DIAGNOSIS: Left renal stone. OPERATION PERFORMED: Cystoscopy, left retrograde urogram and left ESWL. SURGEON: Chema Win MD ANESTHESIA: General. COMPLICATIONS: None. DESCRIPTION OF PROCEDURE: Under satisfactory general anesthesia, the patient first in supine position on the ESWL table. We tried to visualize the stone with the ESWL and fluoroscopy, we were unable to, so we put the patient in lithotomy position. Genitalia prepped and draped in the usual sterile fashion. Cystoscope was introduced in the bladder. Bladder was essentially normal except that ureteric orifices were displaced upward and laterally and using the foroblique lens, I passed a ureteral catheter into the left ureteral orifice and guided fluoroscopically all the way up to just below the renal pelvis. I injected contrast and we could see the stone as a filling defect in the renal pelvis, in the ureter in case we need more contrast. The patient was put supine and the left renal stone was localized. Shocks were delivered at kV of 6, a total of 3000 shocks were delivered. There was good fragmentation of the stone, visualized as filling defects. The patient received 40 mg of Lasix at the end of the procedure. She tolerated the procedure and anesthesia well and was sent to recovery room in stable condition. CC: PCP - Dr. Clemons, requested, unable to deliver Job ID: [id number] DocumentID: [id number] Dictated Date: 03/03/2021 08:59:32 Varnish Cooker Date: 03/03/2021 16:29:56 Dictated By: CHEMA WIN MD
== END 2021-03-03 11:27 | disposition home or self-care (01) ==
LOC: SDC 06:23
PROVIDERS: ATTEND Urology
DX: N20.0 Calculus of kidney (principal); F41.9 Anxiety disorder, unspecified; F32.A Depression, unspecified; K21.9 Gastro-esophageal reflux disease without esophagitis; G47.30 Sleep apnea, unspecified; E66.01 Morbid (severe) obesity due to excess calories; Z68.42 Body mass index [BMI] 45.0-49.9, adult; G47.33 Obstructive sleep apnea (adult) (pediatric); J44.9 Chronic obstructive pulmonary disease, unspecified; E11.9 Type 2 diabetes mellitus without complications; I10 Essential (primary) hypertension; Z88.0 Allergy status to penicillin; Z11.2 Encounter for screening for other bacterial diseases; Z88.1 Allergy status to other antibiotic agents; Z88.5 Allergy status to narcotic agent; Z91.040 Latex allergy status; Z79.899 Other long term (current) drug therapy; Z86.16 Personal history of COVID-19; Z85.528 Personal history of other malignant neoplasm of kidney; Z79.82 Long term (current) use of aspirin; Z99.89 Dependence on other enabling machines and devices; Z88.8 Allergy status to other drugs, medicaments and biological substances; Z91.018 Allergy to other foods
CPT/HCPCS: 74018; 82947; 87081

== ENCOUNTER 2021-03-26 06:33 | Emergency (ER) | payer OTHER ==
[~2021-03-26] VITALS: Ht 157 cm; Wt 122.0 kg
[~2021-03-26 06:33] MED LIST changes: +NITR-65 PO
--- NOTE | 2021-03-26 07:10 | ED Fall/Injury ---
General Chief Complaint: Eye Problems Stated Complaint: FALL,SEEING FLASHES OF LIGHT IN EYE Nursing Triage Note: visual changes s/p fall 03/22/21 Source: patient Exam Limitations: no limitations History of Present Illness Date Seen by Provider: Mar 26, 2021 Time Seen by Provider: 06:41 Initial Comments This 55-year-old woman presents to the emergency room with complaints of injuries related to a fall. She got her foot tangled in a sheet 4 days ago on March 22 which caused her to fall and strike her face near her left eye on her daughter's wheelchair. She denies loss of consciousness or symptoms of concussion. She did talk with Janice Moraes who is her primary care provider at Dr. Clemons's office. She was instructed to seek emergent care if she developed any vision changes. This morning around 02:30 she began seeing flashes of light in her left eye. She was able to go back to sleep and when she awoke the flashes were more consistent and more congressional representative of an intermittent strobe light. The flashes were present even with her eyes closed. She also complains of soreness throughout much of her right side, especially her shoulder and right anterior chest. She has noted increased cough overnight. She does have pain in the chest with cough. She is concerned about possible rib fracture because of this cough and pain. She denies any other symptoms of acute infectious illness such as fever, nausea or diarrhea, chills, etc. She has had chronic cough since having COVID-19 in July. She denies any visual field deficits or any curtain effect in her visual field. She also reports she is currently taking fluconazole for intertrigo. She has bruising lateral to the left eye. Patient reports some epigastric tenderness on exam and states she recently stopped her pantoprazole. Allergies and Home Medications Allergies Coded Allergies: Penicillins (Unverified Allergy, Severe, HIVES, THROAT SWELLS, DIFFICULTY BREATHING, 02/10/07) hydrocodone (Verified Allergy, Intermediate, "MAKES HER FEEL VERY BAD", 12/15/15) latex (Verified Allergy, Mild, RASH, 11/07/15) Cephalosporins (Unverified Allergy, Unknown, 12/16/15) celecoxib (Unverified Allergy, Unknown, 11/08/15) empagliflozin (Verified Allergy, Unknown, 02/05/21) Uncoded Allergies: TAPE (Adverse Reaction, Mild, RASH, WHELPS ON SKIN WHERE TAPE WAS., 02/10/07) Patient Home Medication List Home Medication List Reviewed: Yes Albuterol Sulfate (Ventolin Hfa) 1 Puff Puff, 1 PUFF INH Q8H PRN for SHORTNESS OF BREATH, (Reported) Entered as Reported by: WALTER VALENTINE on 07/21/20 1505 Alprazolam (Alprazolam) 1 Mg Tablet, 1 MG PO BID PRN for ANXIETY, (Reported) Entered as Reported by: WALTER VALENTINE on 07/21/20 1505 Calcium Carb/Magnesium Oxid/D3 (Calcium Magnesium + D Tablet) 1 Each Tablet, 1 EACH PO HS, (Reported) Entered as Reported by: WALTER VALENTINE on 07/21/20 1505 Chlorpheniramine Maleate (Chlortabs) 4 Mg Tablet, 4 MG PO Q4H PRN for ALLERGIES, (Reported) Entered as Reported by: WALTER VALENTINE on 07/21/20 1505 Diphenhydramine HCl (Benadryl) 25 Mg Capsule, 25 MG PO HS PRN for SLEEP, (Reported) Entered as Reported by: WALTER VALENTINE on 07/21/20 1505 Escitalopram Oxalate (Escitalopram Oxalate) 10 Mg Tablet, 10 MG PO HS, (Reported) Entered as Reported by: ERINN CEDRA on 02/26/21 1603 Fluconazole (Fluconazole) 150 Mg Tablet, 150 MG PO DAILY, (Reported) Entered as Reported by: CONRADO CARLSON on 03/03/21 0735 Fluticasone Propionate (Flonase Allergy Relief) 9.9 Ml [place].susp, 2 SPRAY NS DAILY PRN for CONGESTION, (Reported) Entered as Reported by: WALTER VALENTINE on 07/21/20 1505 Metformin HCl (Metformin HCl ER) 500 Mg Tab.er.24h, 1,000 MG PO HS, (Reported) Entered as Reported by: WALTER VALENTINE on 07/21/20 1505 Naproxen Sodium (Naproxen Sodium) 220 Mg Tablet, 440 MG PO HS PRN for PAIN-MILD (1-4), (Reported) Entered as Reported by: DUSTIN DAVILA on 12/26/19 1242 Nitrofurantoin Monohyd/M-Cryst (Macrobid 100 mg Capsule) 100 Mg Capsule, 1 TAB PO BID Prescribed by: CONRADO CARLSON on 03/03/21 1032 Pantoprazole Sodium (Pantoprazole Sodium) 40 Mg Tablet.dr, 40 MG PO HS, (Reported) Entered as Reported by: WALTER VALENTINE on 07/21/20 1505 Propranolol HCl (Propranolol HCl) 40 Mg Tablet, 40 MG PO HS, (Reported) Entered as Reported by: SILVANO APONTE on 12/15/15 0846 Semaglutide (Rybelsus) 7 Mg Tablet, 7 MG PO DAILY, (Reported) Entered as Reported by: ERINN CERDA on 02/26/21 1603 Tamsulosin HCl (Flomax) 0.4 Mg Cap, 0.4 MG PO DAILY Prescribed by: CONRADO CARLSON on 03/03/21 1032 Tiotropium Br/Olodaterol HCl (Stiolto Respimat Inhal [place]) 4 Gm Mist.inhal, 1 PUFF IH DAILY, (Reported) Entered as Reported by: ERINN CERDA on 02/26/21 1603 Review of Systems Review of Systems Constitutional: no symptoms reported Eyes: See HPI Ears, Nose, Mouth, Throat: no symptoms reported Respiratory: see HPI Cardiovascular: no symptoms reported Skin: see HPI Psychiatric/Neurological: See HPI Past Itifwve-Jugrfu-Jmobdj Hx Patient Social History Tobacco Use?: No Substance use?: No Alcohol Use?: No Pt feels they are or have been: No Immunizations Up To Date Tetanus Booster (TDap): Unknown Seasonal Allergies Seasonal Allergies: Yes Past Medical History Surgery/Hospitalization HX: dm, neck/back pain, htn, gerd Surgeries: Yes (SURGERY ON BOILS , HEMORRHOIDECTOMY, TUMOR REMOVED FROM L KIDNEY) Abdominal, Section, Gallbladder, Hysterectomy Respiratory: Yes ("EXERCISE INDUCED ASTHMA", COVID-01 August 2020) Asthma, Pneumonia, Chronic Bronchitis Currently Using CPAP: No Currently Using BIPAP: No Cardiac: Yes Angina, Hypertension, Palpitations Neurological: No 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 Disorders: No 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 Sexually Transmitted Disease: No Genitourinary: Yes (left renal CA; partial nephroectomy) Kidney Infection, Kidney Stones Gastrointestinal: Yes (Fatty Liver Disease, UMBILICAL HERNIA) Gastroesophageal Reflux, Diverticulosis, Polyps, Ulcer, Irritable Bowel Musculoskeletal: Yes (STENOSIS IN LOWER BACK, OSTEOARTHRITIS, DJD) Degenerate Disk Disease, Arthritis, Chronic Back Pain, Fractures Endocrine: Yes Hypothyroidsim, Diabetes, Non-Insulin dep Cancer: Yes Kidney Did You Recieve Any Treatments: Yes What Type of Treatment Did You: Surgical Intervention Psychosocial: Yes (PANIC ATTACKS ) Anxiety Integumentary: No Blood Disorders: No Adverse Reaction/Blood Tranf: No Family Medical History Cardiovascular disease 19 FATHER, Onset:Unknown Completed stroke 19 FATHER, Onset:Unknown Congenital heart disease Dementia 19 FATHER, Onset:Unknown Diabetes mellitus 19 FATHER, Onset:Unknown FH: COPD (chronic obstructive pulmonary disease) 19 MOTHER, Onset:Unknown Hypertension 19 FATHER, Onset:Unknown Myocardial infarction 19 FATHER, Onset:Unknown Thyroid disease 19 MOTHER, Onset:Unknown No Pertinent Family Hx Physical Exam Vital Signs Vital Signs - First Documented 03/26/21 06:43 Temp 35.8 Pulse 77 Resp 16 B/P (MAP) 190/87 (121) Pulse Ox 96 O2 Delivery Room Air Capillary Refill : Less Than 3 Seconds Height, Weight, BMI Height: 5'3.00" Weight: 285lbs. 0.0oz. 129.662629np; 49.00 BMI Method:Stated General Appearance: WD/WN, mild distress HEENT: PERRL/EOMI (No diplopia), normal ENT inspection, TMs normal, other (Visual acuity 20/50 in the left eye and 20/40 in the right eye) Neck: non-tender, normal inspection Cardiovascular: regular rate, rhythm, no edema, no murmur Respiratory: lungs clear, normal breath sounds, no respiratory distress, other (Dry cough noted) Gastrointestinal: normal bowel sounds, soft, tenderness (Mild in the epigastric) Neurologic/Psychiatric: animal warden II-XII nml as tested, no motor/sensory deficits, alert, normal mood/affect, oriented x 3 Skin: normal color, warm/dry, ecchymosis (Lateral to the left eye) Martina Coma Score Best Eye Response: (4) Open Spontaneously Best Verbal Response: (5) Oriented Best Motor Response: (6) Obeys Commands Martina Total: 15 Progress/Results/Core Measures Results/Orders My Orders Orders - MILLIE BALIEY MD Ct Head Wo (03/26/21 06:56) Ct Chest/Abdomen/Pelvis Wo (03/26/21 06:56) Vital Signs/I&O 03/26/21 06:43 Temp 35.8 Pulse 77 Resp 16 B/P (MAP) 190/87 (121) Pulse Ox 96 O2 Delivery Room Air Blood Pressure Mean: 121 Progress Progress Note #1: Time: :16 Progress Note Patient was seen and examined. Symptoms sound consistent with vitreal detachment. Imaging studies are being obtained. If no significant injuries are identified that require urgent treatment, she will be promptly referred to optometry for urgent exam. Progress Note #2: Time: : Progress Note No significant injuries requiring urgent treatment were identified on imaging. Patient's blood pressure was improving. I discussed the situation with Dr. Galaviz's staff. She is to present to his office at 0845 for eye examination. Diagnostic Imaging Diagonstic Imaging: CT Plain Films/CT/US/NM/MRI: head Comments CT head viewed by me and report reviewed. See report below: NAME: JESSICA LONGO [facility] REC#: [id number] PT STATUS: REG ER : 1965 PHYSICIAN: MILLIE BAILEY MD ADMIT DATE: 03/26/21/ER Draft Date of Exam:03/26/21 CT HEAD WO PROCEDURE: CT head without contrast. TECHNIQUE: Multiple contiguous axial images were obtained through the brain without the use of intravenous contrast. Auto Exposure Controls were utilized during the CT exam to meet ALARA standards for radiation dose reduction. INDICATION: Vision changes, fall COMPARISON: 12/03/2010 FINDINGS: No intracranial hemorrhage. No intracranial mass, mass effect, midline shift, herniation, hydrocephalus, or extra-axial fluid collection. No CT evidence of an acute ischemic infarction. The orbits are unremarkable. Mild vascular calcifications. The right maxillary sinus is hypoplastic. The calvarium and extra calvarial soft tissues are unremarkable. IMPRESSION: Stable appearing examination without acute intracranial abnormality. Should symptoms persist, MRI of the brain could be considered. Dictated on workstation # [id number] Dict: 03/26/21723 Trans: 03/26/21730 [facility] [id number] Interpreted by: MARILEE HANDLEY MD Diagonstic Imaging: CT Plain Films/CT/US/NM/MRI: chest, abdomen, pelvis Comments CT chest, abdomen and pelvis viewed by me and report reviewed. See report below: NAME: JESSICA LONGO [facility] REC#: [id number] PT STATUS: REG ER : 1965 PHYSICIAN: MILLIE BAILEY MD ADMIT DATE: 03/26/21/ER Draft Date of Exam:03/26/21 CT CHEST/ABDOMEN/PELVIS WO PROCEDURE: CT chest, abdomen, and pelvis without contrast. TECHNIQUE: Multiple contiguous axial images were obtained through the chest, abdomen, and pelvis without the use of intravenous contrast. Auto Exposure Controls were utilized during the CT exam to meet ALARA standards for radiation dose reduction. INDICATION: Fall, pain COMPARISON: CTs dated 02/05/2021 and 07/20/2020 FINDINGS: Calcified left hilar lymph node. No pathologically enlarged lymph nodes within the chest. No aneurysmal dilatation of the thoracic aorta. The heart is within normal limits in size. No pericardial effusion. No pleural effusion. The trachea is patent. No pneumothorax. A 0.3 cm left lower lobe pulmonary nodule, axial image 76 is not significantly changed since September 2018 suggesting benign etiology. Calcified granuloma within the right lower lobe is again identified. The lungs are otherwise clear. The trachea is patent. No acute osseous abnormality within the chest. Cholecystectomy. The unenhanced liver and spleen are unremarkable. The adrenal glands are unremarkable. The pancreas is unremarkable. The right kidney and ureter are unremarkable. Scarring calcifications associated with the inferior pole of the left kidney again identified. A 0.5 cm nonobstructing calculus within the inferior pole of the left kidney is again noted. Small hypodensity arising from the superior pole of the left kidney is again identified not significantly changed from the prior examination. No hydroureteronephrosis. Mild vascular calcifications without aneurysmal dilatation of the abdominal aorta. Small fat-containing umbilical hernia. The urinary bladder is grossly unremarkable. The uterus is not visualized, likely surgically absent. No bowel obstruction or pneumatosis. No significant adenopathy, free air, or free fluid within the abdomen or pelvis. Scattered osseous degenerative changes without acute osseous abnormality. There is resulting multilevel significant central canal stenosis within the mid to lower lumbar spine. IMPRESSION: No acute traumatic abnormality. Stable small nonobstructing left renal calculus. Multilevel degenerative changes within the lumbar spine with multilevel central canal stenosis within the mid to lower lumbar spine. Additional findings as above. Dictated on workstation # [id number] Dict: 03/26/21 0727 Trans: 03/26/21 0743 [place] [id number] Interpreted by: MARILEE HANDLEY MD Departure Impression Primary Impression: Visual disturbance Additional Impressions: Chest wall pain Epigastric pain Fall on same level as cause of accidental injury Disposition: HOME, SELF-CARE Condition: Stable Departure-Patient Inst. Decision time for Depature: 08:04 Referrals: JENNIFER CLEMONS MD (PCP/Family) Primary Care Physician Patient Instructions: Minor Head Injury Add. Discharge Instructions: You may continue taking meloxicam. You may additionally take Tylenol (acetaminophen) up to 1000 mg every 6 hours as needed. You may also apply ice to affected areas in 20-minute intervals. Restart your pantoprazole and inform your doctor if this does not resolve your stomach tenderness/pain within 1 to 2 weeks. Call with questions or concerns. Return to the ER if you have worsening symptoms. Dr. Galaviz's office is expecting you at 8:45 this morning. Please follow-up there after leaving the ER. All discharge instructions reviewed with patient and/or family. Voiced understanding. Copy Copies To 1: JENNIFER CLEMONS MD, JOSHUA T MD Mar 26, 2021 07:10
--- NOTE | 2021-03-26 07:31 | Diagnostic Imaging Report ---
PROCEDURE: CT head without contrast. TECHNIQUE: Multiple contiguous axial images were obtained through the brain without the use of intravenous contrast. Auto Exposure Controls were utilized during the CT exam to meet ALARA standards for radiation dose reduction. INDICATION: Vision changes, fall COMPARISON: 12/03/2010 FINDINGS: No intracranial hemorrhage. No intracranial mass, mass effect, midline shift, herniation, hydrocephalus, or extra-axial fluid collection. No CT evidence of an acute ischemic infarction. The orbits are unremarkable. Mild vascular calcifications. The right maxillary sinus is hypoplastic. The calvarium and extra calvarial soft tissues are unremarkable. IMPRESSION: Stable appearing examination without acute intracranial abnormality. Should symptoms persist, MRI of the brain could be considered. Dictated by: Dictated on workstation # [id number]
--- NOTE | 2021-03-26 07:44 | Diagnostic Imaging Report ---
PROCEDURE: CT chest, abdomen, and pelvis without contrast. TECHNIQUE: Multiple contiguous axial images were obtained through the chest, abdomen, and pelvis without the use of intravenous contrast. Auto Exposure Controls were utilized during the CT exam to meet ALARA standards for radiation dose reduction. INDICATION: Fall, pain COMPARISON: CTs dated 02/05/2021 and 07/20/2020 FINDINGS: Calcified left hilar lymph node. No pathologically enlarged lymph nodes within the chest. No aneurysmal dilatation of the thoracic aorta. The heart is within normal limits in size. No pericardial effusion. No pleural effusion. The trachea is patent. No pneumothorax. A 0.3 cm left lower lobe pulmonary nodule, axial image 76 is not significantly changed since September 2018 suggesting benign etiology. Calcified granuloma within the right lower lobe is again identified. The lungs are otherwise clear. The trachea is patent. No acute osseous abnormality within the chest. Cholecystectomy. The unenhanced liver and spleen are unremarkable. The adrenal glands are unremarkable. The pancreas is unremarkable. The right kidney and ureter are unremarkable. Scarring calcifications associated with the inferior pole of the left kidney again identified. A 0.5 cm nonobstructing calculus within the inferior pole of the left kidney is again noted. Small hypodensity arising from the superior pole of the left kidney is again identified not significantly changed from the prior examination. No hydroureteronephrosis. Mild vascular calcifications without aneurysmal dilatation of the abdominal aorta. Small fat-containing umbilical hernia. The urinary bladder is grossly unremarkable. The uterus is not visualized, likely surgically absent. No bowel obstruction or pneumatosis. No significant adenopathy, free air, or free fluid within the abdomen or pelvis. Scattered osseous degenerative changes without acute osseous abnormality. There is resulting multilevel significant central canal stenosis within the mid to lower lumbar spine. IMPRESSION: No acute traumatic abnormality. Stable small nonobstructing left renal calculus. Multilevel degenerative changes within the lumbar spine with multilevel central canal stenosis within the mid to lower lumbar spine. Additional findings as above. Dictated by: Dictated on workstation # [id number]
[2021-03-26 08:21] VITALS: BP 158/90
== END 2021-03-26 08:21 | disposition home or self-care (01) ==
LOC: EDUNIT# 06:33 → ER 06:39
DX: H53.9 Unspecified visual disturbance (principal); R07.89 Other chest pain; R10.13 Epigastric pain
CPT/HCPCS: 70450; 71250; 74176

== ENCOUNTER → 2021-04-02 | Outpatient (CLI) | payer OTHER | LOC: LAB 08:22 | PROVIDERS: ATTEND Nurse Practitioner Family | DX: R05.3 Chronic cough (principal) | CPT/HCPCS: 87070; 87205 ==

== ENCOUNTER → 2021-04-06 | Outpatient (CLI) | payer OTHER ==
--- NOTE | 2021-04-06 12:06 | Diagnostic Imaging Report ---
INDICATION: Routine screening. Comparison is made with prior mammogram from 11/02/2018 and 12/14/2016. 2-D and 3-D bilateral screening mammography was performed with CAD. Scattered fibroglandular densities are identified bilaterally. Intraparenchymal lymph node outer right breast posteriorly remains stable. No new mass or malignant-appearing microcalcifications are seen. Axillae are unremarkable. IMPRESSION: No mammographic features suspicious for malignancy are identified. BI-RADS Category 2 ACR BI-RADS Category 2: Benign findings. Result letter will be mailed to the patient. Note: At least 10% of breast cancer is not imaged by mammography. Dictated by: Dictated on workstation # [id number]
== END ==
LOC: RAD 11:14
PROVIDERS: ATTEND Nurse Practitioner Family
DX: Z12.31 Encounter for screening mammogram for malignant neoplasm of breast (principal)
CPT/HCPCS: 77063; 77067

== ENCOUNTER 2021-04-24 11:31 | Emergency (ER) | payer OTHER ==
[~2021-04-24] VITALS: Ht 167 cm; Wt 110.0 kg
[2021-04-24] MEDS ORDERED: diphenhydrAMINE 50 MG/ML INJ (BENADRYL) ONE (11:38)
[2021-04-24] MEDS ORDERED: EPINEPHrine INJECTION 1 MG/ML AMP ONE (11:39)
[2021-04-24] MEDS ORDERED: FAMOTIDINE 20MG/2ML IV (PEPCID) ONE (11:40)
[2021-04-24] MEDS ORDERED: methylPREDNISolone 125 MG (Solu-MEDROL) VIAL ONE (11:40)
--- NOTE | 2021-04-24 11:52 | ED General ---
General Chief Complaint: Allergic Reaction Stated Complaint: ALLERGIC REACTION Source of Information: Patient Exam Limitations: No Limitations History of Present Illness Date Seen by Provider: Apr 24, 2021 Time Seen by Provider: 11:50 Initial Comments To ER by private vehicle from home with reports of allergic reaction. She has an allergy to cashews and she ate food that was given to her as a gift and realized that it had cashews in it. She developed a cough and shortness of breath. She took 1 Benadryl tablet in route to the hospital. Ingestion was at 11 AM. Timing/Duration: 1/2 Hour Severity: Moderate Associated Systoms: Cough Allergies and Home Medications Allergies Coded Allergies: Penicillins (Unverified Allergy, Severe, HIVES, THROAT SWELLS, DIFFICULTY BREATHING, 02/10/07) hydrocodone (Verified Allergy, Intermediate, "MAKES HER FEEL VERY BAD", 12/15/15) latex (Verified Allergy, Mild, RASH, 11/07/15) Cephalosporins (Unverified Allergy, Unknown, 12/16/15) celecoxib (Unverified Allergy, Unknown, 11/08/15) empagliflozin (Verified Allergy, Unknown, 02/05/21) Uncoded Allergies: TAPE (Adverse Reaction, Mild, RASH, WHELPS ON SKIN WHERE TAPE WAS., 02/10/07) Patient Home Medication List Home Medication List Reviewed: Yes Albuterol Sulfate (Ventolin Hfa) 1 Puff Puff, 1 PUFF INH Q8H PRN for SHORTNESS OF BREATH, (Reported) Entered as Reported by: WALTER VALENTINE on 07/21/20 1505 Alprazolam (Alprazolam) 1 Mg Tablet, 1 MG PO BID PRN for ANXIETY, (Reported) Entered as Reported by: WALTER VALENTINE on 07/21/20 1505 Calcium Carb/Magnesium Oxid/D3 (Calcium Magnesium + D Tablet) 1 Each Tablet, 1 EACH PO HS, (Reported) Entered as Reported by: WALTER VALENTINE on 07/21/20 1505 Chlorpheniramine Maleate (Chlortabs) 4 Mg Tablet, 4 MG PO Q4H PRN for ALLERGIES, (Reported) Entered as Reported by: WALTER VALENTINE on 07/21/20 1505 Diphenhydramine HCl (Benadryl) 25 Mg Capsule, 25 MG PO HS PRN for SLEEP, (Reported) Entered as Reported by: WALTER VALENTINE on 07/21/20 1505 Escitalopram Oxalate (Escitalopram Oxalate) 10 Mg Tablet, 10 MG PO HS, (Reported) Entered as Reported by: ERINN CERDA on 02/26/21 1603 Fluconazole (Fluconazole) 150 Mg Tablet, 150 MG PO DAILY, (Reported) Entered as Reported by: CONRADO CARLSON on 03/03/21 0735 Fluticasone Propionate (Flonase Allergy Relief) 9.9 Ml Moran.susp, 2 SPRAY NS DAILY PRN for CONGESTION, (Reported) Entered as Reported by: WALTER VALENTINE on 07/21/20 1505 Metformin HCl (Metformin HCl ER) 500 Mg Tab.er.24h, 1,000 MG PO HS, (Reported) Entered as Reported by: WALTER VALENTINE on 07/21/20 1505 Naproxen Sodium (Naproxen Sodium) 220 Mg Tablet, 440 MG PO HS PRN for PAIN-MILD (1-4), (Reported) Entered as Reported by: DUSTIN DAVILA on 12/26/19 1242 Nitrofurantoin Monohyd/M-Cryst (Macrobid 100 mg Capsule) 100 Mg Capsule, 1 TAB PO BID Prescribed by: CONRADO CARLSON on 03/03/21 1032 Pantoprazole Sodium (Pantoprazole Sodium) 40 Mg Tablet.dr, 40 MG PO HS, (Reported) Entered as Reported by: WALTER VALENTINE on 07/21/20 1505 Propranolol HCl (Propranolol HCl) 40 Mg Tablet, 40 MG PO HS, (Reported) Entered as Reported by: SILVANO APONTE on 12/15/15 0846 Semaglutide (Rybelsus) 7 Mg Tablet, 7 MG PO DAILY, (Reported) Entered as Reported by: ERINN CERDA on 02/26/21 1603 Tamsulosin HCl (Flomax) 0.4 Mg Cap, 0.4 MG PO DAILY Prescribed by: CONRADO CARLSON on 03/03/21 1032 Tiotropium Br/Olodaterol HCl (Stiolto Respimat Inhal Moran) 4 Gm Mist.inhal, 1 PUFF IH DAILY, (Reported) Entered as Reported by: ERINN CERDA on 02/26/21 160 Review of Systems Review of Systems Constitutional: see HPI EENTM: see HPI Respiratory: see HPI, cough, short of breath Cardiovascular: no symptoms reported Genitourinary: no symptoms reported Musculoskeletal: no symptoms reported Skin: no symptoms reported Psychiatric/Neurological: No Symptoms Reported Past Snyqrhf-Oynqzq-Ejykhr Hx Immunizations Up To Date Tetanus Booster (TDap): Unknown Seasonal Allergies Seasonal Allergies: Yes Past Medical History Surgery/Hospitalization HX: dm, neck/back pain, htn, gerd Surgeries: Yes (SURGERY ON BOILS , HEMORRHOIDECTOMY, TUMOR REMOVED FROM L KID ROMAIN) Abdominal, Section, Gallbladder, Hysterectomy Respiratory: Yes ("EXERCISE INDUCED ASTHMA", COVID-01 August 2020) Asthma, Pneumonia, Chronic Bronchitis Currently Using CPAP: No Currently Using BIPAP: No Cardiac: Yes Angina, Hypertension, Palpitations Neurological: No 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 Disorders: 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 Sexually Transmitted Disease: No Genitourinary: Yes (left renal CA; partial nephroectomy) Kidney Infection, Kidney Stones Gastrointestinal: Yes (Fatty Liver Disease, UMBILICAL HERNIA) Gastroesophageal Reflux, Diverticulosis, Polyps, Ulcer, Irritable Bowel Musculoskeletal: Yes (STENOSIS IN LOWER BACK, OSTEOARTHRITIS, DJD) Degenerate Disk Disease, Arthritis, Chronic Back Pain, Fractures Endocrine: Yes Hypothyroidsim, Diabetes, Non-Insulin dep Cancer: Yes Kidney Did You Recieve Any Treatments: Yes What Type of Treatment Did You: Surgical Intervention Psychosocial: Yes (PANIC ATTACKS ) Anxiety Integumentary: No Blood Disorders: No Adverse Reaction/Blood Tranf: No Family Medical History Cardiovascular disease 19 FATHER, Onset:Unknown Completed stroke 19 FATHER, Onset:Unknown Congenital heart disease Dementia 19 FATHER, Onset:Unknown Diabetes mellitus 19 FATHER, Onset:Unknown FH: COPD (chronic obstructive pulmonary disease) 19 MOTHER, Onset:Unknown Hypertension 19 FATHER, Onset:Unknown Myocardial infarction 19 FATHER, Onset:Unknown Thyroid disease 19 MOTHER, Onset:Unknown No Pertinent Family Hx Physical Exam Vital Signs Vital Signs - First Documented 04/24/21 04/24/21 12:14 12:43 Temp 36.9 Pulse 99 Resp 18 B/P (MAP) 132/68 (89) Pulse Ox 97 Capillary Refill : Height, Weight, BMI Height: 5'3.00" Weight: 285lbs. 0.0oz. 129.955879cz; 49.00 BMI Method:Stated General Appearance: No Apparent Distress, WD/WN, Other (Anxious appearing. No objective sign of anaphylaxis. No rash no hives no wheezing no visible airway swelling.) Eyes: Bilateral Eye Normal Inspection, Bilateral Eye PERRL, Bilateral Eye EOMI Neck: Full Range of Motion, Normal Inspection Respiratory: No Accessory Muscle Use, No Respiratory Distress Cardiovascular: Regular Rate, Rhythm, Normal Peripheral Pulses Gastrointestinal: Normal Bowel Sounds, Non Tender, Soft Extremity: Normal Capillary Refill, Normal Inspection Neurologic/Psychiatric: Alert, Oriented x3 Skin: Normal Color, Warm/Dry Progress/Results/Core Measures Suspected Sepsis SIRS Temperature: Pulse: Respiratory Rate: Blood Pressure / Mean: Results/Orders My Orders Orders - TAN GRIMM APRN Ed Iv/Invasive Line Start (04/24/21 11:49) Famotidine Injection (Pepcid Injection) (04/24/21 12:00) Diphenhydramine Injection (Benadryl Inje (04/24/21 12:00) Methylprednisolone Sod Succ (Solu-Medrol (04/24/21 12:00) Medications Given in ED Current Medications Medications Dose Ordered Sig/Raheem Route Start Time Stop Time Status Last Admin Dose Admin Diphenhydramine HCl 50 mg STK-MED ONCE .ROUTE 04/24/21 11:38 04/24/21 11:42 DC 04/24/21 11:47 50 MG Famotidine 20 mg STK-MED ONCE .ROUTE 04/24/21 11:40 04/24/21 11:42 DC 04/24/21 11:47 20 MG Methylprednisolone Sodium Succinate 125 mg STK-MED ONCE .ROUTE 04/24/21 11:40 04/24/21 11:42 DC 04/24/21 11:48 125 MG Vital Signs/I&O 04/24/21 04/24/21 12:14 12:43 Temp 36.9 Pulse 99 88 Resp 18 18 B/P (MAP) 132/68 (89) 130/67 Pulse Ox 97 Capillary Refill : Departure Impression Primary Impression: Allergic reaction to food Disposition: 01 HOME, SELF-CARE Condition: Stable Departure-Patient Inst. Decision time for Depature: 12:38 Referrals: JENNIFER SUMNER MD (PCP/Family) Primary Care Physician Patient Instructions: Allergy to Nuts or Seeds Add. Discharge Instructions: 1. Benadryl 1 tablet every 4-6 hours as needed. Steroids as directed. Epinephrine auto pen as needed. All discharge instructions reviewed with patient and/or family. Voiced understanding. Scripts Epinephrine (Epipen 2-Taz) 0.3 Mg/0.3 Ml Auto.injct 0.3 MG IJ PRN PRN for anaphylaxis, #1 EACH Prov: TAN GRIMM APRN 04/24/21 Prednisone (Prednisone) 20 Mg Tab 40 MG PO DAILY, #4 TAB 0 Refills Prov: TAN GRIMM APRN 04/24/21 TAN GRIMM APRN Apr 24, 2021 11:52
[2021-04-24] MEDS ORDERED: FAMOTIDINE 20MG/2ML IV (PEPCID) IVP ONE (12:00)
[2021-04-24] MEDS ORDERED: diphenhydrAMINE 50 MG/ML INJ (BENADRYL) IVP ONE (12:00)
[2021-04-24] MEDS ORDERED: methylPREDNISolone 125 MG (Solu-MEDROL) VIAL IVP ONE (12:00)
[2021-04-24 12:43] VITALS: BP 130/67
[2021-04-24] MEDS ORDERED: PRD20T PO (12:49)
[2021-04-24] MEDS ORDERED: EPIN0.3P3 IJ (12:49)
== END 2021-04-24 13:00 | disposition home or self-care (01) ==
LOC: EDUNIT# 11:31 → ER 11:32
DX: T78.1XXA Other adverse food reactions, not elsewhere classified, initial encounter (principal); J45.909 Unspecified asthma, uncomplicated; I10 Essential (primary) hypertension; K21.9 Gastro-esophageal reflux disease without esophagitis; E11.9 Type 2 diabetes mellitus without complications; F41.9 Anxiety disorder, unspecified; Z79.84 Long term (current) use of oral hypoglycemic drugs; Z79.899 Other long term (current) drug therapy

== ENCOUNTER → 2021-05-04 | Outpatient (CLI) | payer OTHER ==
[~2021-05-04] MED LIST changes: +EPIN0.3P3 IJ; +PRD20T PO
[2021-05-04 13:00] LABS: BASOPHILS # (AUTO) 0.1 10^3/uL (0.0-0.1); BASOPHILS % (AUTO) 0 % (0-10); EOSINOPHILS # (AUTO) 1.3 10^3/uL (0.0-0.3); EOSINOPHILS % (AUTO) 9 % (0-10); HEMATOCRIT 39 % (35-52); HEMOGLOBIN 12.4 g/dL (11.5-16.0); LYMPHOCYTES % (AUTO) 20 % (12-44); MEAN CORPUSCULAR HEMOGLOBIN 27 pg (25-34); MEAN CORPUSCULAR HGB CONC 32 g/dL (32-36); MEAN CORPUSCULAR VOLUME 84 fL (80-99); MEAN PLATELET VOLUME 11.2 fL (9.0-12.2); MONOCYTES # (AUTO) 1.4 10^3/uL (0.0-1.0); MONOCYTES % (AUTO) 9 % (0-12); NEUTROPHILS # (AUTO) 9.1 10^3/uL (1.8-7.8); NEUTROPHILS % (AUTO) 61 % (42-75); PLATELET COUNT 346 10^3/uL (130-400); WHITE BLOOD COUNT 14.9 10^3/uL (4.3-11.0)
--- NOTE | 2021-05-04 13:07 | Diagnostic Imaging Report ---
INDICATION: Persistent cough PA and lateral chest Heart size and pulmonary vascularity are normal. Lungs are clear. There are no effusions or pneumothoraces. IMPRESSION: No acute abnormalities in the chest. Dictated by: Dictated on workstation # [id number]
[2021-05-04 13:50] LABS: EOSINOPHILS % (MANUAL) 9 %; LYMPHOCYTES % (MANUAL) 25 %; MONOCYTES % (MANUAL) 10 %; NEUTROPHILS % (MANUAL) 56 %; RBC MORPH NORMAL
== END ==
LOC: RAD 12:17
PROVIDERS: ATTEND Nurse Practitioner Family
DX: R05.3 Chronic cough (principal); E11.9 Type 2 diabetes mellitus without complications; I10 Essential (primary) hypertension; R00.2 Palpitations
CPT/HCPCS: 36415; 71046; 83036; 85007; 85027

== ENCOUNTER → 2021-05-12 | Outpatient (CLI) | payer OTHER | LOC: CARD 09:39 | PROVIDERS: ATTEND Nurse Practitioner Family | DX: I51.7 Cardiomegaly (principal); E11.9 Type 2 diabetes mellitus without complications; I10 Essential (primary) hypertension | CPT/HCPCS: 93005; 93225; 93226; 93306 ==

== ENCOUNTER → 2021-05-27 | Outpatient (CLI) | payer OTHER ==
[2021-05-27 16:58] LABS: ABSOLUTE RETIC # 96 10e9/uL (24-90); BASOPHILS % (AUTO) 0 % (0-10); EOSINOPHILS # (AUTO) 0.7 10^3/uL (0.0-0.3); EOSINOPHILS % (AUTO) 5 % (0-10); HEMATOCRIT 35 % (35-52); HEMOGLOBIN 11.2 g/dL (11.5-16.0); LYMPHOCYTES # (AUTO) 3.2 10^3/uL (1.0-4.0); LYMPHOCYTES % (AUTO) 22 % (12-44); MEAN CORPUSCULAR HEMOGLOBIN 27 pg (25-34); MEAN CORPUSCULAR HGB CONC 32 g/dL (32-36); MEAN CORPUSCULAR VOLUME 86 fL (80-99); MONOCYTES % (AUTO) 7 % (0-12); NEUTROPHILS # (AUTO) 9.5 10^3/uL (1.8-7.8); NEUTROPHILS % (AUTO) 66 % (42-75); PLATELET COUNT 392 10^3/uL (130-400); RETICULOCYTE % 2.34 % (0.50-2.40); WHITE BLOOD COUNT 14.5 10^3/uL (4.3-11.0)
[2021-05-27 17:33] LABS: BAND NEUTROPHILS 6 %; EOSINOPHILS % (MANUAL) 5 %; LYMPHOCYTES % (MANUAL) 23 %; MICROCYTOSIS SLIGHT; MONOCYTES % (MANUAL) 8 %; NEUTROPHILS % (MANUAL) 58 %
== END ==
LOC: LABNPT 16:42
PROVIDERS: ATTEND Nurse Practitioner Family
DX: D72.829 Elevated white blood cell count, unspecified (principal)
CPT/HCPCS: 85007; 85027; 85045; 85055

== ENCOUNTER 2021-06-03 05:30 | Outpatient (RCR) | payer OTHER ==
[~2021-06-03] VITALS: Ht 160 cm; Wt 120.8 kg
== END 2021-06-03 11:05 | disposition home or self-care (01) ==
LOC: PREOP 05:30
PROVIDERS: ATTEND Internal Medicine
DX: Z01.812 Encounter for preprocedural laboratory examination (principal); K62.5 Hemorrhage of anus and rectum; R10.32 Left lower quadrant pain; R13.10 Dysphagia, unspecified; Z20.822 Contact with and (suspected) exposure to COVID-19
CPT/HCPCS: 87635

== ENCOUNTER 2021-06-08 09:09 | Outpatient (RCR) | payer OTHER ==
[2021-06-08 10:36] LABS: BILIRUBIN,URINE NEGATIVE (NEGATIVE); CLARITY,URINE CLEAR; COLOR,URINE YELLOW; GLUCOSE, URINE (UA) NEGATIVE (NEGATIVE); KETONES,URINE NEGATIVE (NEGATIVE); LEUKOCYTE ESTERASE ,URINE NEGATIVE (NEGATIVE); NITRITE,URINE NEGATIVE (NEGATIVE); PH,URINE 6.5 (5-9); PROTEIN,URINE 1+ (NEGATIVE)
[2021-06-08 11:15] LABS: BACTERIA,URINE TRACE /HPF
== END 2021-06-15 | disposition home or self-care (01) ==
LOC: ONC 09:09
PROVIDERS: ATTEND Internal Medicine
DX: D72.828 Other elevated white blood cell count (principal); D50.9 Iron deficiency anemia, unspecified; I10 Essential (primary) hypertension; E11.9 Type 2 diabetes mellitus without complications; E78.5 Hyperlipidemia, unspecified; E66.01 Morbid (severe) obesity due to excess calories
CPT/HCPCS: 81000; 81206; 88184; 88185; G0463; 99214

== ENCOUNTER 2021-06-09 15:58 | Outpatient (RCR) | payer OTHER | END 2021-06-15 | disposition home or self-care (01) | PROVIDERS: ATTEND Nurse Practitioner Family | DX: M54.50 Low back pain, unspecified (principal); M25.552 Pain in left hip; M25.511 Pain in right shoulder ==

== ENCOUNTER 2021-06-10 05:28 | Outpatient (RCR) | payer OTHER | END 2021-06-13 07:39 | disposition home or self-care (01) | LOC: PREOP 05:28 | PROVIDERS: ATTEND Internal Medicine | DX: Z01.812 Encounter for preprocedural laboratory examination (principal); R10.32 Left lower quadrant pain; E86.0 Dehydration; Z20.822 Contact with and (suspected) exposure to COVID-19 | CPT/HCPCS: 87635 ==

== ENCOUNTER 2021-06-12 07:57 | Day surgery (SDC) | payer OTHER ==
--- NOTE | 2021-06-03 07:16 | HISTORY AND PHYSICAL ---
DATE OF SERVICE: COLONOSCOPY HISTORY AND PHYSICAL PRIMARY CARE PROVIDER: Jennifer Sumner MD HISTORY: The patient is a 55-year-old white female reporting a several month history of left mid predominantly lower quadrant abdominal pain. With this, she noticed some intermittent choking sensation. It can happen with pills, even her own saliva and only occasionally happens with solids. She has some intermittent epigastric discomfort. This does not wake her from sleep. She tends towards constipation side with no diarrhea problems and reports a past history of IBS-C. She will take herbal teas, which usually is enough to alleviate her constipation. She has seen no bright red blood per rectum, but workup included a CBC, where her hemoglobin was 11.2 with an MCV of 86 and stools were occult positive for blood. She has undergone 2 colonoscopies in the past, last one per Dr. Taylor in 2016 revealed a large ascending flat polyp that had hyperplastic features on biopsy reports. It had been recommended that she undergo colonoscopy within a year, but this did not happen. Her white count was elevated at little over 15,000 without definitive evidence to suggest underlying infection on manual smear interpreted by our pathologist. There was no overt evidence for malignancy with a reactive process favored. Iron studies and B12 are pending at the time of dictation. She has had no bleeding problems and her platelet count was at the upper limits of normal at 392. Absolute reticulocyte count was mildly elevated at 96. PAST MEDICAL HISTORY: Significant for type 2 diabetes, which has been under reasonable control. Last A1c was in April and was 7.2%. FAMILY HISTORY: She is not aware of any family history for GI tract malignancy. REVIEW OF SYSTEMS: CONSTITUTIONAL: Denies night sweats, chills or fever. PULMONARY: Denies cough, wheezing or shortness of breath. CARDIOVASCULAR: Denies chest pain. She has had some palpitations intermittently. The Holter monitor report revealing occasional PACs and PVCs with no significant arrhythmias being noted. She has no known history of cardiovascular disease. GASTROINTESTINAL: As noted in the HPI. PHYSICAL EXAMINATION: Deferred at the time of panendoscopy. ASSESSMENT AND PLAN: The patient is being set up for diagnostic panendoscopy due to occult positive blood in the stool with previous history of colon polyps, iron deficient anemia and intermittent dysphagia. Prep instructions with the Suprep kit were given and questions answered. Electronic medical record reviewed. Job ID: [id number] DocumentID: [id number] Dictated Date: 06/01/2021 17:52:44 Bark Tanner Date: 06/01/2021 18:13:45 Dictated By: JENNIFER SUMNER MD MTDD
[~2021-06-12] VITALS: Ht 160 cm; Wt 120.8 kg
[2021-06-12] MEDS ORDERED: LACTATED RINGERS 1,000 ML IV STA (07:59)
[2021-06-12] MEDS ORDERED: LIDOCAINE JELLY 2% 6 ML SYRINGE MM PRN (08:00)
[2021-06-12] MEDS ORDERED: HURRICAINE EXT TUBE (BENZOCAINE) XX PRN (08:00)
[2021-06-12 08:15] VITALS: BP 139/79
--- NOTE | 2021-06-12 08:32 | Pre-Op Note & Conscious Sedat ---
Pre-Operative Progress Note H&P Reviewed The H&P was reviewed, patient examined and no changes noted. Date H&P Reviewed: Jun 12, 2021 Time H&P Reviewed: 08:31 Conscious Sedation Pre-Proced ASA Score 2 For ASA 3 and 4: Consider anesthesia and medical clearance. Also, for patients with a history of failed moderate sedation consider anesthesia. Airway Lungs Heart ASA score ASA 1: a normal healthy patient ASA 2: a patient with a mild systemic disease (mid diabetes, controlled hypertension, obesity ASA 3: a patient with a severe systemic disease that limits activity (angina, COPD, prior Myocardial infarction) ASA 4: a patient with an incapacitating disease that is a constant threat to life (CHF, renal failure) ASA 5: a moribund patient not expected to survive 24 hrs. (ruptured aneurysm) ASA 6: a declared brain- patient whose organs are being harvested. For emergent operations, add the letter E after the classification Mallampati Classification Grade 2 Sedation Plan Analgesia, Amnesia, Plan communicated to team members, Discussed options with patient/fam, Discussed risks with patient/fam The patient is an appropriate candidate to undergo the planned procedure, sedation, and anesthesia. The patient immediately re-assessed prior to indication. JENNIFER SUMNER MD Jun 12, 2021 08:32
[2021-06-12] MEDS ORDERED: MIDAZOLAM 2 MG/2 ML (VERSED) VIAL ONE (09:01)
[2021-06-12] MEDS ORDERED: PROPOFOL INJECTION 50 ML IV ONE (09:01)
[2021-06-12] MEDS ORDERED: proPOfol 200 MG/20 ML (DIPRIVAN) VIAL IV ONE (09:28)
--- NOTE | 2021-06-12 09:50 | Anesthesia-General Post-Op ---
MAC Patient Condition Mental Status/LOC: Same as Preop Cardiovascular: Satisfactory Nausea/Vomiting: Absent Respiratory: Satisfactory Pain: Controlled Complications: Absent Post Op Complications Complications None Follow Up Care/Instructions Patient Instructions None needed. Anesthesiology Discharge Order Discharge Order Patient is doing well, no complaints, stable vital signs, no apparent adverse anesthesia problems. No complications reported per nursing. YOKO VILLAGOMEZ CRNA Jun 12, 2021 09:50
[2021-06-12 09:53] VITALS: BP 131/63
[2021-06-12 10:25] VITALS: BP 145/69
--- NOTE | 2021-06-12 18:53 | OPERATIVE REPORT ---
DATE OF SERVICE: PANENDOSCOPY SUMMARY PRIMARY CARE PROVIDER: Jennifer Sumner MD. INDICATION FOR THE PROCEDURE: Right upper quadrant pain, left lower quadrant abdominal pain, and occult positive stool with iron deficiency anemia. DESCRIPTION OF PROCEDURE: The patient was placed in the left lateral decubitus position. The endoscope was inserted into the oral cavity and under direct visualization, the esophagus was intubated. The endoscope was passed down the esophagus through the stomach and the second portion of the duodenum. Careful inspection was made as the endoscope was withdrawn. FINDINGS: The posterior pharynx, arytenoid aperture, epiglottis, and true and false vocal folds were unremarkable. The proximal, mid and distal esophagus was unremarkable. There is a small sliding approximately 1 cm hiatal hernia present. There is no evidence for erosive esophagitis with a distinct GE junction. No evidence to suggest Madrigal's esophagus. The cardia of the stomach was unremarkable. There was some mild fundal erythema as well as antral erythema without evidence for ulceration or erosion. Biopsy was obtained and submitted for Helicobacter and histopathology. The pylorus, the pyloric channel, the duodenal bulb, and second portion of the duodenum were unremarkable with normal villous architecture. Photograph was obtained. ASSESSMENT: Mild antral and distal fundal erythema was noted compatible with some mild gastritis. Biopsy is pending for histopathology and Helicobacter evaluation. Small sliding hiatal hernia was present without evidence for erosive esophagitis or Madrigal's change with an otherwise unremarkable EGD. We then proceeded with colonoscopy. Prior to undergoing a colonoscopy, a digital rectal evaluation was performed. Anal sphincter tone was normal and the perianal reflexes were intact. No abnormalities were noted on digital inspection of the anal canal or distal rectal vault. The colonoscope was then inserted into the rectum and under direct visualization advanced to the cecum. The cecum was identified by identification of the ileocecal valve and cecal strap. Photographic documentation was obtained. The terminal ileum was intubated and the distal 10 cm of terminal ileum were inspected as well. Quality of the prep was good. The patient did have an irritable bowel type response to air insufflation and colonic manipulation. There was no evidence for external hemorrhoids. Several grade I internal hemorrhoid complexes were noted. No other rectal abnormalities were appreciated. The sigmoid colon, descending colon, splenic flexure, transverse colon, ascending colon, and cecum were unremarkable. There was no evidence for polyp formation in the distal ascending colon, noted five years ago per Iban Taylor. ASSESSMENT: Normal colonoscopy to the cecum including distal 10 cm of terminal ileum with normal-appearing villous architecture. Several grade I internal hemorrhoid complexes were noted with no other abnormalities being appreciated on today's procedure. I would advocate consideration for repeat screening colonoscopy in 10 years. Job ID: [id number] DocumentID: [id number] Dictated Date: 06/12/2021 10:27:10 [employer] Date: 06/12/2021 18:52:42 Dictated By: JENNIFER SUMNER MD
== END 2021-06-12 10:40 | disposition home or self-care (01) ==
LOC: ENDO 07:57
PROVIDERS: ATTEND Internal Medicine
DX: K44.9 Diaphragmatic hernia without obstruction or gangrene (principal); K64.0 First degree hemorrhoids; K58.1 Irritable bowel syndrome with constipation; K21.9 Gastro-esophageal reflux disease without esophagitis; D50.9 Iron deficiency anemia, unspecified; Z91.040 Latex allergy status; I10 Essential (primary) hypertension; E11.9 Type 2 diabetes mellitus without complications; Z79.899 Other long term (current) drug therapy; Z79.84 Long term (current) use of oral hypoglycemic drugs; Z86.010 Personal history of colon polyps
CPT/HCPCS: 88305

== ENCOUNTER 2021-06-23 16:17 | Outpatient (RCR) | payer OTHER ==
[~2021-06-23 16:17] MED LIST changes: -FLUC150T2 PO; +FLUC150T41 PO
== END 2021-07-07 10:00 | disposition home or self-care (01) ==
PROVIDERS: ATTEND Nurse Practitioner Family
DX: M47.26 Other spondylosis with radiculopathy, lumbar region (principal); I10 Essential (primary) hypertension

== ENCOUNTER 2021-07-06 09:33 | Outpatient (RCR) | payer OTHER | END 2021-07-13 | disposition home or self-care (01) | LOC: ONC 09:33 | PROVIDERS: ATTEND Internal Medicine | DX: D50.9 Iron deficiency anemia, unspecified (principal); D72.828 Other elevated white blood cell count; I10 Essential (primary) hypertension; E11.9 Type 2 diabetes mellitus without complications; E78.5 Hyperlipidemia, unspecified; E66.01 Morbid (severe) obesity due to excess calories; F41.9 Anxiety disorder, unspecified; Z85.528 Personal history of other malignant neoplasm of kidney; Z90.5 Acquired absence of kidney | CPT/HCPCS: 99213 ==

== ENCOUNTER → 2021-08-24 | Outpatient (CLI) | payer OTHER ==
[~2021-08-24] MED LIST changes: -SEMA7TAB PO; +SEMA7TAB2 PO
[2021-08-24 11:27] LABS: BASOPHILS # (AUTO) 0.1 10^3/uL (0.0-0.1); BASOPHILS % (AUTO) 0 % (0-10); EOSINOPHILS # (AUTO) 0.5 10^3/uL (0.0-0.3); EOSINOPHILS % (AUTO) 4 % (0-10); HEMATOCRIT 39 % (35-52); HEMOGLOBIN 12.1 g/dL (11.5-16.0); LYMPHOCYTES # (AUTO) 2.7 10^3/uL (1.0-4.0); LYMPHOCYTES % (AUTO) 20 % (12-44); MEAN CORPUSCULAR HEMOGLOBIN 27 pg (25-34); MEAN CORPUSCULAR HGB CONC 31 g/dL (32-36); MEAN CORPUSCULAR VOLUME 85 fL (80-99); MONOCYTES % (AUTO) 7 % (0-12); NEUTROPHILS # (AUTO) 9.1 10^3/uL (1.8-7.8); NEUTROPHILS % (AUTO) 68 % (42-75); PLATELET COUNT 355 10^3/uL (130-400); WHITE BLOOD COUNT 13.5 10^3/uL (4.3-11.0)
[2021-08-24 11:43] LABS: ALBUMIN 3.8 GM/DL (3.2-4.5); BILIRUBIN,TOTAL 0.4 MG/DL (0.1-1.0); CALCIUM 9.8 MG/DL (8.5-10.1); CREATININE SERUM 1.04 MG/DL (0.60-1.30); POTASSIUM 4.5 MMOL/L (3.6-5.0)
[2021-08-24 11:45] LABS: ERYTHROCYTE SEDIMENTATION RATE 34 MM/HR (0-30)
[2021-08-24 12:03] LABS: TSH (THYROID ANALYZER) 2.02 UIU/ML (0.35-4.94)
== END ==
LOC: LAB 10:49
PROVIDERS: ATTEND Nurse Practitioner Family
DX: E11.9 Type 2 diabetes mellitus without complications (principal); M79.7 Fibromyalgia; I12.9 Hypertensive chronic kidney disease with stage 1 through stage 4 chronic kidney disease, or unspecified chronic kidney disease; N18.9 Chronic kidney disease, unspecified
CPT/HCPCS: 36415; 80053; 80061; 83036; 83970; 84443; 85025; 85652

== ENCOUNTER 2021-08-31 09:33 | Outpatient (RCR) | payer OTHER ==
[2021-08-27 16:04] LABS: BASOPHILS % (AUTO) 0 % (0-10); EOSINOPHILS # (AUTO) 0.1 10^3/uL (0.0-0.3); EOSINOPHILS % (AUTO) 0 % (0-10); HEMATOCRIT 37 % (35-52); HEMOGLOBIN 12.1 g/dL (11.5-16.0); LYMPHOCYTES # (AUTO) 1.3 10^3/uL (1.0-4.0); LYMPHOCYTES % (AUTO) 9 % (12-44); MEAN CORPUSCULAR HEMOGLOBIN 27 pg (25-34); MEAN CORPUSCULAR HGB CONC 32 g/dL (32-36); MEAN CORPUSCULAR VOLUME 85 fL (80-99); MEAN PLATELET VOLUME 11.1 fL (9.0-12.2); MONOCYTES # (AUTO) 0.3 10^3/uL (0.0-1.0); MONOCYTES % (AUTO) 2 % (0-12); NEUTROPHILS % (AUTO) 88 % (42-75); PLATELET COUNT 374 10^3/uL (130-400); WHITE BLOOD COUNT 14.8 10^3/uL (4.3-11.0)
== END 2021-09-12 | disposition home or self-care (01) ==
LOC: ONC 09:33
PROVIDERS: ATTEND Internal Medicine
DX: D50.9 Iron deficiency anemia, unspecified (principal); D72.828 Other elevated white blood cell count; I10 Essential (primary) hypertension; E11.9 Type 2 diabetes mellitus without complications; E78.5 Hyperlipidemia, unspecified; E66.01 Morbid (severe) obesity due to excess calories; F41.9 Anxiety disorder, unspecified; Z85.528 Personal history of other malignant neoplasm of kidney; Z90.5 Acquired absence of kidney
CPT/HCPCS: 36415; 82728; 83540; 83550; 85025; 99213

== ENCOUNTER 2021-09-30 12:16 | Emergency (ER) | payer OTHER ==
[~2021-09-30] VITALS: Ht 160 cm; Wt 119.3 kg
--- NOTE | 2021-09-30 12:57 | ED General ---
General Chief Complaint: Dizziness/Syncope Stated Complaint: DIZZINESS Nursing Triage Note: The patient states that her heart started racing very fast earlier today while she was sitting going through papers, which lead to her left arm hurting, the left side of her head is tingling, and the pain keeps coming and going. Source of Information: Patient Exam Limitations: No Limitations History of Present Illness Date Seen by Provider: September 30, 2021 Time Seen by Provider: 12:46 Initial Comments Patient is a 55-year-old female who presents to the emergency department today with a chief complaint of palpitations. 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 She states it lasted maybe 15 minutes at most. She states after it resolved she had a little bit of left arm pain. She also subsequently developed brief scalp tingling on the left and then a frontal headache that was very brief as well as a posterior headache. She states that also resolved on its own. She did not feel like she was going to pass out but she did get quite scared. She has never had symptoms last this long before has had previous palpitations when standing up from a seated position. She has seen Dr. Machado in the past no history of coronary artery disease. She does not have thyroid disease. She had eaten lunch. She is a type II diabetic. She recently started on Vyvanse about 3 weeks ago takes 30 mg daily but has not taken her dose today. She is on 2 or 3 different medications for anxiety. No recent fevers, chills, productive cough. No problems with bowel or bladder. All other review of systems reviewed and negative except as stated. Timing/Duration: 1 Hour Severity: Moderate Associated Systoms: Other (paresthesia and headache) Allergies and Home Medications Allergies Coded Allergies: Penicillins (Unverified Allergy, Severe, HIVES, THROAT SWELLS, DIFFICULTY BREATHING, 02/10/07) hydrocodone (Verified Allergy, Intermediate, "MAKES HER FEEL VERY BAD", 12/15/15) latex (Verified Allergy, Mild, RASH, 11/07/15) Cephalosporins (Unverified Allergy, Unknown, 12/16/15) celecoxib (Unverified Allergy, Unknown, 11/08/15) empagliflozin (Verified Allergy, Unknown, 02/05/21) Uncoded Allergies: TAPE (Adverse Reaction, Mild, RASH, WHELPS ON SKIN WHERE TAPE WAS., 02/10/07) Patient Home Medication List Home Medication List Reviewed: Yes Albuterol Sulfate (Ventolin Hfa) 1 Puff Puff, 1 PUFF INH Q8H PRN for SHORTNESS OF BREATH, (Reported) Entered as Reported by: WALTER VALENTINE on 07/21/20 1505 Alprazolam (Alprazolam) 1 Mg Tablet, 1 MG PO BID PRN for ANXIETY, (Reported) Entered as Reported by: WALTER VALENTINE on 07/21/20 1505 Calcium Carb/Magnesium Oxid/D3 (Calcium Magnesium + D Tablet) 1 Each Tablet, 1 EACH PO HS, (Reported) Entered as Reported by: WALTER VALENTINE on 07/21/20 1505 Escitalopram Oxalate (Escitalopram Oxalate) 10 Mg Tablet, 10 MG PO HS, (Reported) Entered as Reported by: ERINN CERDA on 02/26/21 1603 Fluconazole (Fluconazole) 150 Mg Tablet, 150 MG PO DAILY, (Reported) Entered as Reported by: CONRADO CARLSON on 03/03/21 0735 Fluticasone Propionate (Flonase Allergy Relief) 9.9 Ml [place].susp, 2 SPRAY NS DAILY PRN for CONGESTION, (Reported) Entered as Reported by: WALTER VALENTINE on 07/21/20 1505 Metformin HCl (Metformin HCl ER) 500 Mg Tab.er.24h, 1,000 MG PO HS, (Reported) Entered as Reported by: WALTER VALENTINE on 07/21/20 1505 Pantoprazole Sodium (Pantoprazole Sodium) 40 Mg Tablet.dr, 40 MG PO HS, (Reported) Entered as Reported by: WALTER VALENTINE on 07/21/20 1505 Prednisone (Prednisone) 20 Mg Tab, 40 MG PO DAILY Prescribed by: TAN GRIMM on 04/24/21 1249 Propranolol HCl (Propranolol HCl) 40 Mg Tablet, 40 MG PO HS, (Reported) Entered as Reported by: SILVANO APONTE on 12/15/15 0846 Semaglutide (Rybelsus) 7 Mg Tablet, 7 MG PO DAILY, (Reported) Entered as Reported by: ERINN CERDA on 02/26/21 1603 Tamsulosin HCl (Flomax) 0.4 Mg Cap, 0.4 MG PO DAILY Prescribed by: CONRADO CARLSON on 03/03/21 1032 Tiotropium Br/Olodaterol HCl (Stiolto Respimat Inhal [place]) 4 Gm Mist.inhal, 1 PUFF IH DAILY, (Reported) Entered as Reported by: ERINN CERDA on 02/26/21 1603 Review of Systems Review of Systems Constitutional: see HPI EENTM: no symptoms reported Respiratory: no symptoms reported Cardiovascular: palpitations Gastrointestinal: no symptoms reported, other ((chronic GI issues since having COVID the second time in July of this year)) Genitourinary: no symptoms reported Musculoskeletal: no symptoms reported Skin: no symptoms reported Psychiatric/Neurological: Anxiety All Other Systems Reviewed Negative Unless Noted: Yes Past Hnlpdqg-Tlburx-Ibeowk Hx Patient Social History Tobacco Use?: No Smoking Status: Never a Smoker Use of E-Cig and/or Vaping dev: No Use of E-Cig and/or Vaping Daniel: Never a User Substance use?: No Alcohol Use?: No Pt feels they are or have been: No Immunizations Up To Date Tetanus Booster (TDap): Unknown First/Initial COVID19 Vaccinat: NO Second COVID19 Vaccination Cesario: NO Third COVID19 Vaccination Date: NO Seasonal Allergies Seasonal Allergies: Yes Past Medical History Surgery/Hospitalization HX: dm, neck/back pain, htn, gerd Surgeries: Yes (SURGERY ON BOILS, HEMORRHOIDECTOMY, TUMOR REMOVED FROM L KIDNEY) Abdominal, Section, Gallbladder, Hysterectomy Respiratory: Yes ("EXERCISE INDUCED ASTHMA", COVID-01 August 2020) Asthma, Pneumonia, Chronic Bronchitis Currently Using CPAP: No Currently Using BIPAP: No Cardiac: Yes Angina, Hypertension, Palpitations Neurological: No 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 Disorders: No 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 Sexually Transmitted Disease: No Genitourinary: Yes (left renal CA; partial nephroectomy) Kidney Infection, Kidney Stones Gastrointestinal: Yes (Fatty Liver Disease, UMBILICAL HERNIA) Gastroesophageal Reflux, Diverticulosis, Polyps, Ulcer, Irritable Bowel Musculoskeletal: Yes (STENOSIS IN LOWER BACK, OSTEOARTHRITIS, DJD) Degenerate Disk Disease, Arthritis, Chronic Back Pain, Fractures Endocrine: Yes Hypothyroidsim, Diabetes, Non-Insulin dep Cancer: Yes Breast Did You Recieve Any Treatments: Yes What Type of Treatment Did You: Surgical Intervention Psychosocial: Yes (PANIC ATTACKS ) Anxiety Integumentary: No Blood Disorders: No Adverse Reaction/Blood Tranf: No Family Medical History Cardiovascular disease 19 FATHER, Onset:Unknown Completed stroke 19 FATHER, Onset:Unknown Congenital heart disease Dementia 19 FATHER, Onset:Unknown Diabetes mellitus 19 FATHER, Onset:Unknown FH: COPD (chronic obstructive pulmonary disease) 19 MOTHER, Onset:Unknown Hypertension 19 FATHER, Onset:Unknown Myocardial infarction 19 FATHER, Onset:Unknown Thyroid disease 19 MOTHER, Onset:Unknown No Pertinent Family Hx Physical Exam Vital Signs Vital Signs - First Documented 09/30/21 12:25 Temp 36.0 Pulse 87 B/P (MAP) 153/81 (105) Pulse Ox 98 O2 Delivery Room Air Capillary Refill : Height, Weight, BMI Height: 5'3.00" Weight: 285lbs. 0.0oz. [id number]; 46.00 BMI Method:Stated General Appearance: No Apparent Distress, WD/WN Eyes: Bilateral Eye Normal Inspection, Bilateral Eye PERRL, Bilateral Eye EOMI HEENT: PERRL/EOMI Neck: Normal Inspection Respiratory: Lungs Clear, Normal Breath Sounds, No Accessory Muscle Use, No Respiratory Distress Cardiovascular: Regular Rate, Rhythm (80's), Normal Peripheral Pulses Gastrointestinal: Non Tender, Soft, Other (obesity) Extremity: Normal Inspection, Normal Range of Motion, Non Tender, No Calf Tenderness, No Pedal Edema Neurologic/Psychiatric: Alert, Oriented x3, No Motor/Sensory Deficits, Normal 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, 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 as 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 Skin: Normal Color, Warm/Dry Progress/Results/Core Measures Suspected Sepsis SIRS Temperature: Pulse: 87 Respiratory Rate: Laboratory Tests 09/30/21 12:50: White Blood Count 13.9H Blood Pressure 153 /81 Mean: 105 Laboratory Tests 09/30/21 12:50: Creatinine 1.28, Platelet Count 332, Total Bilirubin 0.3 Results/Orders Lab Results Laboratory Tests Test 09/30/21 12:42 09/30/21 12:50 Range/Units Glucometer 152 H 70-110 MG/DL White Blood Count 13.9 H 4.3-11.0 10^3/uL Red Blood Count 4.32 3.80-5.11 10^6/uL Hemoglobin 11.9 11.5-16.0 g/dL Hematocrit 36 35-52 % Mean Corpuscular Volume 84 80-99 fL Mean Corpuscular Hemoglobin 28 25-34 pg Mean Corpuscular Hemoglobin Concent 33 32-36 g/dL Red Cell Distribution Width 13.9 10.0-14.5 % Platelet Count 332 130-400 10^3/uL Mean Platelet Volume 10.6 9.0-12.2 fL Immature Granulocyte % (Auto) 0 % Neutrophils (%) (Auto) 68 42-75 % Lymphocytes (%) (Auto) 19 12-44 % Monocytes (%) (Auto) 9 0-12 % Eosinophils (%) (Auto) 4 0-10 % Basophils (%) (Auto) 0 0-10 % Neutrophils # (Auto) 9.4 H 1.8-7.8 10^3/uL Lymphocytes # (Auto) 2.6 1.0-4.0 10^3/uL Monocytes # (Auto) 1.2 H 0.0-1.0 10^3/uL Eosinophils # (Auto) 0.5 H 0.0-0.3 10^3/uL Basophils # (Auto) 0.1 0.0-0.1 10^3/uL Immature Granulocyte # (Auto) 0.1 0.0-0.1 10^3/uL Sodium Level 137 135-145 MMOL/L Potassium Level 4.3 3.6-5.0 MMOL/L Chloride Level 102 98-107 MMOL/L Carbon Dioxide Level 20 L 21-32 MMOL/L Anion Gap 15 H 5-14 MMOL/L Blood Urea Nitrogen 22 H 7-18 MG/DL Creatinine 1.28 0.60-1.30 MG/DL Estimat Glomerular Filtration Rate 49 BUN/Creatinine Ratio 17 Glucose Level 154 H 70-105 MG/DL Calcium Level 9.6 8.5-10.1 MG/DL Corrected Calcium 9.8 8.5-10.1 MG/DL Total Bilirubin 0.3 0.1-1.0 MG/DL Aspartate Amino Transf (AST/SGOT) 20 5-34 U/L Alanine Aminotransferase (ALT/SGPT) 21 0-55 U/L Alkaline Phosphatase 81 40-136 U/L Total Protein 6.7 6.4-8.2 GM/DL Albumin 3.7 3.2-4.5 GM/DL My Orders Orders - LISS FLORENTINO MD Ed Iv/Invasive Line Start (09/30/21 12:52) Cbc With Automated Diff (09/30/21 12:52) Comprehensive Metabolic Panel (09/30/21 12:52) Chest 1 View, Ap/Pa Only (09/30/21 12:52) Ns Iv 1000 Ml (Sodium Chloride 0.9%) (09/30/21 13:45) Vital Signs/I&O 09/30/21 12:25 Temp 36.0 Pulse 87 B/P (MAP) 153/81 (105) Pulse Ox 98 O2 Delivery Room Air Capillary Refill : Blood Pressure Mean: 105 Point of Care Testing Finger Stick Blood Glucose: 152 Blood Glucose Action Taken: rn notified Progress Note : Time: 15:13 Progress Note Recheck patient after fluids, she feels much better. No recurrence of palpitations. We have talked about return precautions, if she gets recurrence of symptoms especially with shortness of breath, nausea or passing out spells she needs to come back to the ER. I also recommended that she follow-up with Dr. Machado since it has been quite a long time since she seen him. We discussed the possibilities of different type of rhythm disturbances that may have occurred today. She may end up needing a Holter monitor at some point. I did encourage good nutrition, hydration and sleep hygiene. 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 These probably contribute to her current symptoms. Either way, she looks good clinically. no findings to suggest the need for further workup at this time. She is comfortable with the plan of care. all questions are sought and answered. ECG Initial ECG Impression Date: September 30, 2021 Initial ECG Impression Time: 12:35 Initial ECG Rhythm: Normal Sinus Initial ECG Intervals: Normal Initial ECG Intervals [place] 169 QRS 97 QTc 401 Comment No ectopy is noted, no ST segment elevation or depression is noted Departure Impression Primary Impression: Palpitations Disposition: 01 HOME, SELF-CARE Condition: Improved Departure-Patient Inst. Decision time for Depature: 15:18 Referrals: JENNIFER SUMNER MD (PCP/Family) Primary Care Physician EDUARDO MACHADO MD Patient Instructions: Palpitations (DC) Add. Discharge Instructions: Drink plenty of fluids to stay well-hydrated. Follow good sleep hygiene and nutrition. Continue your daily medications as prescribed by your primary care physician. You should call and arrange for a follow-up appointment with Dr. Machado regarding your palpitations. Please come back to the emergency department if you experience further episodes especially with chest pain, lightheadedness or dizziness, sweating or shortness of breath. Copy Copies To 1: EDUARDO MACHADO MD Copies To 2: JENNIFER SUMNER MD, KATHRYN M MD September 30, 2021 12:57
[2021-09-30 13:21] LABS: BASOPHILS # (AUTO) 0.1 10^3/uL (0.0-0.1); BASOPHILS % (AUTO) 0 % (0-10); EOSINOPHILS # (AUTO) 0.5 10^3/uL (0.0-0.3); EOSINOPHILS % (AUTO) 4 % (0-10); HEMATOCRIT 36 % (35-52); HEMOGLOBIN 11.9 g/dL (11.5-16.0); LYMPHOCYTES # (AUTO) 2.6 10^3/uL (1.0-4.0); LYMPHOCYTES % (AUTO) 19 % (12-44); MEAN CORPUSCULAR HEMOGLOBIN 28 pg (25-34); MEAN CORPUSCULAR HGB CONC 33 g/dL (32-36); MEAN CORPUSCULAR VOLUME 84 fL (80-99); MEAN PLATELET VOLUME 10.6 fL (9.0-12.2); MONOCYTES # (AUTO) 1.2 10^3/uL (0.0-1.0); MONOCYTES % (AUTO) 9 % (0-12); NEUTROPHILS # (AUTO) 9.4 10^3/uL (1.8-7.8); NEUTROPHILS % (AUTO) 68 % (42-75); PLATELET COUNT 332 10^3/uL (130-400); WHITE BLOOD COUNT 13.9 10^3/uL (4.3-11.0)
[2021-09-30 13:26] LABS: ALBUMIN 3.7 GM/DL (3.2-4.5); POTASSIUM 4.3 MMOL/L (3.6-5.0)
[2021-09-30 13:27] LABS: CALCIUM 9.6 MG/DL (8.5-10.1)
--- NOTE | 2021-09-30 13:28 | Diagnostic Imaging Report ---
Indication: Palpitations Portable chest 1:24 PM Heart size and pulmonary vascularity are normal. Lungs are clear. There are no effusions or pneumothoraces. IMPRESSION: No acute abnormalities in the chest Dictated by: Dictated on workstation # [id number]
[2021-09-30 13:29] LABS: TOTAL PROTEIN 6.7 GM/DL (6.4-8.2)
[2021-09-30 13:30] LABS: BILIRUBIN,TOTAL 0.3 MG/DL (0.1-1.0)
[2021-09-30 13:32] LABS: CREATININE SERUM 1.28 MG/DL (0.60-1.30)
[2021-09-30] MEDS ORDERED: NS IV 1000 ML 1,000 ML IV SCH (13:45)
[2021-09-30 15:31] VITALS: BP 130/63
== END 2021-09-30 15:31 | disposition home or self-care (01) ==
LOC: EDUNIT# 12:16 → ER 12:18
DX: R00.2 Palpitations (principal); F41.0 Panic disorder [episodic paroxysmal anxiety]; E11.9 Type 2 diabetes mellitus without complications; Z79.899 Other long term (current) drug therapy; Z86.16 Personal history of COVID-19; Z28.310 Unvaccinated for COVID-19
CPT/HCPCS: 36415; 71045; 80053; 82947; 85025; 93005

== ENCOUNTER 2021-10-04 17:54 | Inpatient (IN) | payer OTHER ==
[~2021-10-04] VITALS: Ht 160 cm; Wt 139.0 kg
[2021-10-04] MEDS ORDERED: NS IV 1000 ML 1,000 ML IV STA (18:17)
--- NOTE | 2021-10-04 18:26 | ED EENT ---
History of Present Illness General Chief Complaint: Dental Problems/Pain Stated Complaint: FACIAL/DENTAL SWELLING Nursing Triage Note: patient verbilized dental pain since tuesday, states high fever, unable to take medicine po due to vomitting, Source: patient Exam Limitations: no limitations History of Present Illness Date Seen by Provider: October 04, 2021 Time Seen by Provider: 18:22 Initial Comments Patient is a 55-year-old female presents ED with right-sided dental pain, sore throat, right-sided neck pain. Pain started last Tuesday. Sharp pain progr essively got worse with radiation to the neck into the back part of the throat. She started having difficulty swallowing,open upper mouth secondary to the pain. She states she has been sipping on water. Not able to eat until today when she tried yogurt and having immediately vomited 3 times. She reports a temperature of 101 at home. She is febrile on arrival. She denies of any difficulty breathing, chest pain, cough, diarrhea. She denies of any dental trauma. No one else at home has been sick. She did he report some swelling to the right side of her jaw. Allergies and Home Medications Allergies Coded Allergies: Penicillins (Unverified Allergy, Severe, HIVES, THROAT SWELLS, DIFFICULTY BREATHING, 02/10/07) hydrocodone (Verified Allergy, Intermediate, "MAKES HER FEEL VERY BAD", 12/15/15) latex (Verified Allergy, Mild, RASH, 11/07/15) Cephalosporins (Unverified Allergy, Unknown, 12/16/15) celecoxib (Unverified Allergy, Unknown, 11/08/15) empagliflozin (Verified Allergy, Unknown, 02/05/21) Uncoded Allergies: TAPE (Adverse Reaction, Mild, RASH, WHELPS ON SKIN WHERE TAPE WAS., 02/10/07) Patient Home Medication List Home Medication List Reviewed: Yes Albuterol Sulfate (Ventolin Hfa) 1 Puff Puff, 1 PUFF INH Q8H PRN for SHORTNESS OF BREATH, (Reported) Entered as Reported by: WALTER VALENTINE on 07/21/20 1505 Alprazolam (Alprazolam) 1 Mg Tablet, 1 MG PO BID PRN for ANXIETY, (Reported) Entered as Reported by: WALTER VALENTINE on 07/21/20 1505 Calcium Carb/Magnesium Oxid/D3 (Calcium Magnesium + D Tablet) 1 Each Tablet, 1 EACH PO HS, (Reported) Entered as Reported by: WALTER VALENTINE on 07/21/20 1505 Escitalopram Oxalate (Escitalopram Oxalate) 10 Mg Tablet, 10 MG PO HS, (Reported) Entered as Reported by: ERINN CERDA on 02/26/21 160 Fluconazole (Fluconazole) 150 Mg Tablet, 150 MG PO DAILY, (Reported) Entered as Reported by: CONRADO CARLSON on 03/03/21 0735 Fluticasone Propionate (Flonase Allergy Relief) 9.9 Ml [place].susp, 2 SPRAY NS DA CARLOS PRN for CONGESTION, (Reported) Entered as Reported by: WALTER VALENTINE on 07/21/20 1505 Irbesartan (Irbesartan) 150 Mg Tablet, 150 MG PO HS, (Reported) Entered as Reported by: KADEN LAMB on 10/04/21 2130 Last Action: Continued Metformin HCl (Metformin HCl ER) 500 Mg Tab.er.24h, 1,000 MG PO HS, (Reported) Entered as Reported by: WALTER VALENTINE on 07/21/20 1505 Pantoprazole Sodium (Pantoprazole Sodium) 40 Mg Tablet.dr, 40 MG PO HS, (Reported) Entered as Reported by: WALTER VALENTINE on 07/21/20 1505 Prednisone (Prednisone) 20 Mg Tab, 40 MG PO DAILY Prescribed by: TAN GRIMM on 04/24/21 1249 Propranolol HCl (Propranolol HCl) 40 Mg Tablet, 40 MG PO HS, (Reported) Entered as Reported by: SILVANO APONTE on 12/15/15 0846 Last Action: Converted Semaglutide (Rybelsus) 7 Mg Tablet, 7 MG PO DAILY, (Reported) Entered as Reported by: ERINN CERDA on 02/26/21 160 Tamsulosin HCl (Flomax) 0.4 Mg Cap, 0.4 MG PO DAILY Prescribed by: CONRADO CARLSON on 03/03/21 1032 Tiotropium Br/Olodaterol HCl (Stiolto Respimat Inhal [place]) 4 Gm Mist.inhal, 1 PUFF IH DAILY, (Reported) Entered as Reported by: ERINN CERDA on 02/26/21 160 Review of Systems Review of Systems Constitutional: No chills, No diaphoresis Eyes: Denies Drainage, Denies Decreased Acuity Ears: Denies Dizziness, Denies Pain Nose: denies clots Mouth: denies clots, denies loose teeth; pain, swelling Throat: pain, swelling Respiratory: No cough, No dyspnea on exertion Cardiovascular: No chest pain Gastrointestinal: No abdominal pain, No diarrhea, No nausea, No vomiting Musculoskeletal: No back pain, No joint pain Skin: change in color; No change in hair/nails All Other Systems Reviewed Negative Unless Noted: Yes Past Tuxvzuh-Alfntb-Ayqyix Hx Patient Social History Tobacco Use?: No Use of E-Cig and/or Vaping dev: No Substance use?: No Alcohol Use?: No Immunizations Up To Date Tetanus Booster (TDap): Unknown Influenza Vaccine Up-to-Date: No; Not Current First/Initial COVID19 Vaccinat: NO Second COVID19 Vaccination Cesario: NO Third COVID19 Vaccination Date: NO Seasonal Allergies Seasonal Allergies: Yes Past Medical History Surgery/Hospitalization HX: dm, neck/back pain, htn, gerd Surgeries: Yes (SURGERY ON BOILS, HEMORRHOIDECTOMY, TUMOR REMOVED FROM L KIDNEY) Abdominal, Section, Gallbladder, Hysterectomy Respiratory: Yes ("EXERCISE INDUCED ASTHMA", COVID-01 August 2020) Asthma, Pneumonia, Chronic Bronchitis Currently Using CPAP: No Currently Using BIPAP: No Cardiac: Yes Angina, Hypertension, Palpitations Neurological: No 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 Sexually Transmitted Disease: No Genitourinary: Yes (left renal CA; partial nephroectomy) Kidney Infection, Kidney Stones Gastrointestinal: Yes (Fatty Liver Disease, UMBILICAL HERNIA) Gastroesophageal Reflux, Diverticulosis, Polyps, Ulcer, Irritable Bowel Musculoskeletal: Yes (STENOSIS IN LOWER BACK, OSTEOARTHRITIS, DJD) Degenerate Disk Disease, Arthritis, Chronic Back Pain, Fractures Endocrine: Yes Hypothyroidsim, Diabetes, Non-Insulin dep Cancer: Yes Breast Did You Recieve Any Treatments: Yes What Type of Treatment Did You: Surgical Intervention Psychosocial: Yes (PANIC ATTACKS ) Anxiety Integumentary: No Blood Disorders: No Adverse Reaction/Blood Tranf: No Family Medical History Cardiovascular disease 19 FATHER, Onset:Unknown Completed stroke 19 FATHER, Onset:Unknown Congenital heart disease Dementia 19 FATHER, Onset:Unknown Diabetes mellitus 19 FATHER, Onset:Unknown FH: COPD (chronic obstructive pulmonary disease) 19 MOTHER, Onset:Unknown Hypertension 19 FATHER, Onset:Unknown Myocardial infarction 19 FATHER, Onset:Unknown Thyroid disease 19 MOTHER, Onset:Unknown No Pertinent Family Hx Physical Exam Vital Signs Vital Signs - First Documented 10/04/21 18:15 Temp 39.4 Pulse 108 Resp 20 B/P (MAP) 116/64 (81) Pulse Ox 95 O2 Delivery Room Air Height, Weight, BMI Height: 5'3.00" Weight: 285lbs. 0.0oz. 129.382221ao; 46.00 BMI Method:Stated General Appearance: WD/WN, no apparent distress Eyes: bilateral eye normal inspection, bilateral eye PERRL, bilateral eye abn ormal EOM Ears: bilateral ear auricle normal, bilateral ear canal normal, bilateral ear TM normal Mouth/Throat: other (Oropharynx with erythema, swelling, exudate. Subtle uvula deviation to the left. Right-sided dental tenderness, right neck tenderness with swelling.) Neck: other (Right-sided neck tenderness without erythema. Warmth noted) Cardiovascular: no gallop, no JVD, tachycardia Respiratory: chest non-tender, lungs clear, normal breath sounds, no respiratory distress Gastrointestinal: normal bowel sounds, non tender, soft, no organomegaly Neurologic/Psychiatric: display director II-XII nml as tested, no motor/sensory deficits, alert, normal mood/affect, oriented x 3 Progress/Results/Core Measures Results/Orders Lab Results Laboratory Tests Test 10/04/21 18:23 10/04/21 19:58 Range/Units White Blood Count 14.4 H 4.3-11.0 10^3/uL Red Blood Count 4.53 3.80-5.11 10^6/uL Hemoglobin 12.4 11.5-16.0 g/dL Hematocrit 38 35-52 % Mean Corpuscular Volume 83 80-99 fL Mean Corpuscular Hemoglobin 27 25-34 pg Mean Corpuscular Hemoglobin Concent 33 32-36 g/dL Red Cell Distribution Width 14.2 10.0-14.5 % Platelet Count 296 130-400 10^3/uL Mean Platelet Volume 10.4 9.0-12.2 fL Immature Granulocyte % (Auto) 1 % Neutrophils (%) (Auto) 82 H 42-75 % Lymphocytes (%) (Auto) 8 L 12-44 % Monocytes (%) (Auto) 8 0-12 % Eosinophils (%) (Auto) 1 0-10 % Basophils (%) (Auto) 0 0-10 % Neutrophils # (Auto) 11.8 H 1.8-7.8 10^3/uL Lymphocytes # (Auto) 1.2 1.0-4.0 10^3/uL Monocytes # (Auto) 1.1 H 0.0-1.0 10^3/uL Eosinophils # (Auto) 0.1 0.0-0.3 10^3/uL Basophils # (Auto) 0.0 0.0-0.1 10^3/uL Immature Granulocyte # (Auto) 0.1 0.0-0.1 10^3/uL Neutrophils % (Manual) 82 % Lymphocytes % (Manual) 10 % Monocytes % (Manual) 5 % Eosinophils % (Manual) 1 % Band Neutrophils 2 % Dohle Bodies SLIGHT Microcytosis SLIGHT Sodium Level 136 135-145 MMOL/L Potassium Level 4.6 3.6-5.0 MMOL/L Chloride Level 99 98-107 MMOL/L Carbon Dioxide Level 21 21-32 MMOL/L Anion Gap 16 H 5-14 MMOL/L Blood Urea Nitrogen 17 7-18 MG/DL Creatinine 1.10 0.60-1.30 MG/DL Estimat Glomerular Filtration Rate 59 BUN/Creatinine Ratio 15 Glucose Level 166 H 70-105 MG/DL Lactic Acid Level 1.12 0.50-2.00 MMOL/L Calcium Level 9.7 8.5-10.1 MG/DL Corrected Calcium 10.0 8.5-10.1 MG/DL Total Bilirubin 0.4 0.1-1.0 MG/DL Aspartate Amino Transf (AST/SGOT) 32 5-34 U/L Alanine Aminotransferase (ALT/SGPT) 37 0-55 U/L Alkaline Phosphatase 100 40-136 U/L C-Reactive Protein High Sensitivity 19.75 H 0.00-0.50 MG/DL Total Protein 7.1 6.4-8.2 GM/DL Albumin 3.6 3.2-4.5 GM/DL Lipase 26 8-78 U/L Group A Streptococcus Screen NEGATIVE NEGATIVE My Orders Orders - VERA HAIRSTON Cbc With Automated Diff (10/04/21 18:17) Comprehensive Metabolic Panel (10/04/21 18:17) Lipase (10/04/21 18:17) Blood Culture (10/04/21 18:17) Lactic Acid Analyzer (10/04/21 18:17) Hs C Reactive Protein (10/04/21 18:17) Dexamethasone Oral Soln (Ed) (Decadron I (10/04/21 18:17) Rapid Strep A Screen (10/04/21 18:17) Ketorolac Injection (Toradol Injection) (10/04/21 18:30) Ns Iv 1000 Ml (Sodium Chloride 0.9%) (10/04/21 18:17) Ct Neck (Soft Tissue) W (10/04/21 18:20) Clindamycin 600 Mg/50 Ml Ivpb (Cleocin P (10/04/21 18:30) Iohexol Injection (Omnipaque 350 Mg/Ml 1 (10/04/21 18:30) Received Contrast (Hold Metformin- Contr (10/04/21 18:30) Ns (Ivpb) (Sodium Chloride 0.9% Ivpb Bag (10/04/21 18:30) Iohexol Injection (Omnipaque 350 Mg/Ml 1 (10/04/21 18:45) Received Contrast (Hold Metformin- Contr (10/04/21 18:45) Ns (Ivpb) (Sodium Chloride 0.9% Ivpb Bag (10/04/21 18:45) Manual Differential (10/04/21 18:23) Blood Culture (10/04/21 18:53) Clindamycin 600 Mg/50 Ml Ivpb (Cleocin P (10/04/21 19:08) Medications Given in ED Current Medications Medications Dose Ordered Sig/Raheem Route Start Time Stop Time Status Last Admin Dose Admin Clindamycin Phosphate/Dextrose 50 ml @ 100 mls/hr ONCE ONCE IV 10/04/21 18:30 10/04/21 20:37 DC 10/04/21 19:21 100 MLS/HR Iohexol 100 ml ONCE ONCE IV 10/04/21 18:30 10/04/21 18:31 DC 10/04/21 18:37 75 ML Ketorolac Tromethamine 30 mg ONCE ONCE IVP 10/04/21 18:30 10/04/21 18:31 DC 10/04/21 18:47 30 MG Sodium Chloride 100 ml ONCE ONCE IV 10/04/21 18:30 10/04/21 18:31 DC 10/04/21 18:37 80 ML Vital Signs/I&O 10/04/21 10/04/21 10/04/21 18:15 20:30 21:10 Temp 39.4 37.7 36.2 Pulse 108 93 94 Resp 20 18 15 B/P (MAP) 116/64 (81) 147/69 141/85 (103) Pulse Ox 95 97 95 O2 Delivery Room Air Room Air Room Air Blood Pressure Mean: 81 Departure Communication (Admissions) Time/Spoke to Admitting Phy: 20:25 Patient was discussed with Dr. Ceron who accepts patient for admission. Communication (PCP) Patient was tachycardic and febrile. Blood cultures were ordered. Normal lactic acid. Patient was given Toradol for fever. Elevated white blood count. Normal electrolytes, kidney function, liver function. Patient was given IV f luid. CT scan showed right submandibular gland infection with surrounding stranding without any loculated abscess. Strep A was negative. Did have some swelling in pus pockets to the oropharynx. Still having pain to the face and not wanting to eat or drink. . Patient was discussed with [place] of Dr. Gaines who felt like patient would benefit with IV antibiotics over night. She was started on clindamycin with multiple allergies to antibiotics. Patient was discussed with Dr. Solares who accepts patient for IV antibiotics. Impression Primary Impression: Sepsis Additional Impression: Submandibular gland infection Disposition: ADMITTED INPATIENT Condition: Stable Admissions Decision to Admit Reason: Admit from ER (General) Decision to Admit/Date: October 04, 2021 Time/Decision to Admit Time: 20:25 Departure-Patient Inst. Referrals: JENNIFER SUMNER MD (PCP/Family) Primary Care Physician VERA HAIRSTON October 04, 2021 18:25
[2021-10-04] MEDS ORDERED: KETOROLAC 30 MG/ML VIAL IVP ONE (18:30)
[2021-10-04] MEDS ORDERED: IOHEXOL 350 MG/ML 100 ML (OMNIPAQUE 350) VIAL IV ONE ×2 (18:30→18:45)
[2021-10-04] MEDS ORDERED: NS 100 ML (IVPB) BAG IV ONE ×2 (18:30→18:45)
[2021-10-04] MEDS ORDERED: HOLD METFORMIN - RECEIVED CONTRAST 20 ML VIAL IV SCH ×2 (18:30→18:45)
[2021-10-04] MEDS ORDERED: CLINDAMYCIN 600 MG/50 ML IVPB 50 ML IV ONE ×2 (18:30→19:08)
[2021-10-04 18:35] LABS: BASOPHILS % (AUTO) 0 % (0-10); EOSINOPHILS # (AUTO) 0.1 10^3/uL (0.0-0.3); EOSINOPHILS % (AUTO) 1 % (0-10); HEMATOCRIT 38 % (35-52); HEMOGLOBIN 12.4 g/dL (11.5-16.0); LYMPHOCYTES # (AUTO) 1.2 10^3/uL (1.0-4.0); LYMPHOCYTES % (AUTO) 8 % (12-44); MEAN CORPUSCULAR HEMOGLOBIN 27 pg (25-34); MEAN CORPUSCULAR HGB CONC 33 g/dL (32-36); MEAN CORPUSCULAR VOLUME 83 fL (80-99); MEAN PLATELET VOLUME 10.4 fL (9.0-12.2); MONOCYTES # (AUTO) 1.1 10^3/uL (0.0-1.0); MONOCYTES % (AUTO) 8 % (0-12); NEUTROPHILS # (AUTO) 11.8 10^3/uL (1.8-7.8); NEUTROPHILS % (AUTO) 82 % (42-75); PLATELET COUNT 296 10^3/uL (130-400); WHITE BLOOD COUNT 14.4 10^3/uL (4.3-11.0)
[2021-10-04 18:46] LABS: ALBUMIN 3.6 GM/DL (3.2-4.5); POTASSIUM 4.6 MMOL/L (3.6-5.0)
[2021-10-04 18:48] LABS: CALCIUM 9.7 MG/DL (8.5-10.1)
[2021-10-04 18:49] LABS: TOTAL PROTEIN 7.1 GM/DL (6.4-8.2)
[2021-10-04 18:51] LABS: BILIRUBIN,TOTAL 0.4 MG/DL (0.1-1.0)
--- NOTE | 2021-10-04 18:52 | Diagnostic Imaging Report ---
EXAMINATION: CT neck with intravenous contrast. TECHNIQUE: Multiple contiguous axial images were obtained through the neck after the uneventful administration of intravenous contrast. All CT scans use one or more of the following dose optimizing techniques: automated exposure control, MA and/or KvP adjustment based on patient size and exam type or iterative reconstruction. HISTORY: Right-sided neck pain and swelling. COMPARISON: None available. FINDINGS: The visualized orbits are unremarkable. Soft tissues of the neck are unremarkable. Thyroid gland is unremarkable. Lung apices are unremarkable. Bilateral parotid glands are normal. The nasopharyngeal and oropharyngeal soft tissues are unremarkable. There is mild asymmetric prominence of the right submandibular gland with mild inflammatory stranding and a few tiny foci of air. No loculated fluid collection. There are a few prominent likely reactive lymph nodes within the right cervical chain. The cervical airway is patent. The osseous structures are intact. Visualized skull base is unremarkable. IMPRESSION: 1. Prominence of the right submandibular gland with surrounding inflammatory stranding. A few foci of air within the soft tissues is nonspecific and could be seen with injury or infection. No loculated fluid collection. 2. Likely reactive right cervical lymph nodes. Dictated by: Dictated on workstation # [id number]
[2021-10-04 18:53] LABS: CREATININE SERUM 1.1 MG/DL (0.60-1.30)
[2021-10-04 19:12] LABS: BAND NEUTROPHILS 2 %; EOSINOPHILS % (MANUAL) 1 %; LYMPHOCYTES % (MANUAL) 10 %; MONOCYTES % (MANUAL) 5 %; NEUTROPHILS % (MANUAL) 82 %
[2021-10-04 19:13] LABS: MICROCYTOSIS SLIGHT
[2021-10-04 21:10] VITALS: BP 141/85
[2021-10-04] MEDS ORDERED: IRBE150T23 PO (21:30)
[2021-10-04] MEDS ORDERED: morphine INJ 4 MG/ML 1 ML (VIAL/SYRINGE) IV PRN (22:00)
[2021-10-04] MEDS ORDERED: ACETAMINOPHEN 500 MG TAB (TYLENOL) PO PRN (22:00)
[2021-10-04] MEDS: LOSARTAN 50 MG (COZAAR) TAB PO SCH (22:08)
[2021-10-04] MEDS: PROPRANOLOL 20 MG (INDERAL) TABLET PO SCH (22:09)
[2021-10-04] MEDS: NS IV 1000 ML 1,000 ML IV SCH (22:09)
[2021-10-04] MEDS: CATHETER FLUSH 10 ML SYR IVP SCH (22:09)
[2021-10-04 23:28] VITALS: BP 138/87
[2021-10-05] MEDS: CLINDAMYCIN 600 MG/50 ML IVPB 50 ML IV SCH ×3 (02:56→18:22)
[2021-10-05 03:27] VITALS: BP 111/54
[2021-10-05] MEDS: CATHETER FLUSH 10 ML SYR IVP SCH ×3 (04:15→22:11)
[2021-10-05 05:43] LABS: BASOPHILS % (AUTO) 0 % (0-10); EOSINOPHILS % (AUTO) 0 % (0-10); HEMATOCRIT 37 % (35-52); LYMPHOCYTES # (AUTO) 1.1 10^3/uL (1.0-4.0); LYMPHOCYTES % (AUTO) 7 % (12-44); MEAN CORPUSCULAR HEMOGLOBIN 28 pg (25-34); MEAN CORPUSCULAR HGB CONC 33 g/dL (32-36); MEAN CORPUSCULAR VOLUME 84 fL (80-99); MEAN PLATELET VOLUME 10.4 fL (9.0-12.2); MONOCYTES # (AUTO) 0.4 10^3/uL (0.0-1.0); MONOCYTES % (AUTO) 3 % (0-12); NEUTROPHILS # (AUTO) 12.7 10^3/uL (1.8-7.8); NEUTROPHILS % (AUTO) 89 % (42-75); PLATELET COUNT 262 10^3/uL (130-400); WHITE BLOOD COUNT 14.3 10^3/uL (4.3-11.0)
[2021-10-05] MEDS: NS IV 1000 ML 1,000 ML IV SCH ×3 (05:55→22:17)
[2021-10-05 05:57] LABS: CREATININE SERUM 1.1 MG/DL (0.60-1.30); POTASSIUM 4.5 MMOL/L (3.6-5.0)
[2021-10-05] MEDS: APAP 325 MG/10.15 ML LIQ (TYLENOL) UDC PO PRN ×2 (06:24→11:13)
[2021-10-05 07:40] VITALS: BP 147/66
[2021-10-05 11:27] VITALS: BP 156/71
[2021-10-05] MEDS ORDERED: fluCOnazole (DIFLUCAN) 100 MG TAB PO ONE (12:30)
[2021-10-05] MEDS ORDERED: ESOM20CA37 PO (14:24)
[2021-10-05] MEDS ORDERED: BUDE10.7 INH (14:24)
[2021-10-05] MEDS ORDERED: BUSP10TA95 PO (14:24)
[2021-10-05] MEDS ORDERED: MECL-149 PO (14:24)
[2021-10-05] MEDS ORDERED: DULA0.75 IJ (14:24)
[2021-10-05] MEDS ORDERED: FEXO180T84 PO (14:24)
[2021-10-05] MEDS ORDERED: METF-478 PO (14:24)
[2021-10-05] MEDS ORDERED: FERR-84 PO (14:24)
[2021-10-05] MEDS ORDERED: NAPR220C61 PO (14:24)
[2021-10-05] MEDS ORDERED: FAMO20TA5 PO (14:24)
[2021-10-05] MEDS ORDERED: fluCOnazole (DIFLUCAN) 100 MG TAB PO NR (14:56)
[2021-10-05 15:42] VITALS: BP 154/84
[2021-10-05] MEDS: ACETAMINOPHEN 325 MG TABLET PO PRN ×2 (16:56→21:29)
[2021-10-05] MEDS ORDERED: ALPRAZolam 1 MG (XANAX) TAB PO PRN (17:15)
[2021-10-05] MEDS ORDERED: MECLIZINE 25 MG (ANTIVERT) TAB PO PRN (17:15)
[2021-10-05] MEDS: ONDANSETRON 4 MG/2 ML (SDV) Z0FRAN IV PRN ×2 (18:52→22:58)
--- NOTE | 2021-10-05 19:07 | History & Physical-Hospitalist ---
History of Present Illness HPI/Chief Complaint Christa Sandoval is a 55 year old female with PMH HTN, T2DM, GERD, COPD, morbid obesity, who presented with right sided jaw and neck pain. She reports that she has had a broken tooth on the right side for the past couple years. She was supposed to have it evaluated for removal but was unable to follow up due to COVID. She reports having worsening tooth pain recently. The pain then moved to her jaw. Yesterday the pain started to move down to her neck. The pain in her tooth improved but has since returned. She has been having pain when swallowing. She started having fevers. She was unable to keep anything down. She denies trouble breathing. Source: patient Exam Limitations: no limitations Date Seen 10/05/21 Time Seen by a Provider: 11:05 Attending Physician Jasvir Clemons MD PCP Admitting Physician: Veronika Solares MD Attending Physician: Veronika Solares MD Referring Physician Date of Admission October 04, 2021 at 20:57 Home Medications & Allergies Home Medications Reviewed patient Home Medication Reconciliation performed by pharmacy medication reconciliations helicopter technician and/or nursing. Patients Allergies have been reviewed. Allergies Allergies Coded Allergies Penicillins (Unverified Allergy, Severe, HIVES, THROAT SWELLS, DIFFICULTY BREATHING, 02/10/07) hydrocodone (Verified Allergy, Intermediate, "MAKES HER FEEL VERY BAD", 12/15/15) latex (Verified Allergy, Mild, RASH, 11/07/15) Cephalosporins (Unverified Allergy, Unknown, 12/16/15) celecoxib (Unverified Allergy, Unknown, 11/08/15) empagliflozin (Verified Allergy, Unknown, 02/05/21) Uncoded Allergies TAPE ( Adverse Reaction, Mild, RASH, WHELPS ON SKIN WHERE TAPE WAS., 02/10/07) Past Qnxsndh-Vzohmw-Rlrpbz Hx Patient Social History Tobacco Use?: No Use of E-Cig and/or Vaping dev: No Substance use?: No Alcohol Use?: No Pt feels they are or have been: No Immunizations Up To Date First/Initial COVID19 Vaccinat: NO Second COVID19 Vaccination Cesario: NO Tetanus Booster (TDap): Unknown Date of Pneumonia Vaccine: Jun 27, 2013 Seasonal Allergies Seasonal Allergies: Yes Current Status status: No status: No Advance Directives: No Communicates: Verbally Primary Language: Polish Preferred Spoken Language: Polish Is interpretation needed?: No Implanted or Applied Medical D: None Past Medical History Surgeries: Abdominal, Section, Gallbladder, Hysterectomy Asthma, Pneumonia, Chronic Bronchitis Currently Using CPAP: No Currently Using BIPAP: No Angina, Hypertension, Palpitations 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 Sexually Transmitted Disease: No Kidney Infection, Kidney Stones Gastroesophageal Reflux, Diverticulosis, Polyps, Ulcer, Irritable Bowel Degenerate Disk Disease, Arthritis, Chronic Back Pain, Fractures Hypothyroidsim, Diabetes, Non-Insulin dep Breast Did You Recieve Any Treatments: Yes What Type of Treatment Did You: Surgical Intervention Anxiety Blood Disorders: No Adverse Reaction/Blood Tranf: No Family Medical History Cardiovascular disease 19 FATHER, Onset:Unknown Completed stroke 19 FATHER, Onset:Unknown Congenital heart disease Dementia 19 FATHER, Onset:Unknown Diabetes mellitus 19 FATHER, Onset:Unknown FH: COPD (chronic obstructive pulmonary disease) 19 MOTHER, Onset:Unknown Hypertension 19 FATHER, Onset:Unknown Myocardial infarction 19 FATHER, Onset:Unknown Thyroid disease 19 MOTHER, Onset:Unknown No Pertinent Family Hx Review of Systems Constitutional: fever EENTM: mouth pain, throat pain Respiratory: no symptoms reported Cardiovascular: no symptoms reported Gastrointestinal: no symptoms reported Genitourinary: no symptoms reported Musculoskeletal: no symptoms reported Skin: no symptoms reported Psychiatric/Neurological: No Symptoms Reported Physical Exam Physical Exam Vital Signs Vital Signs - First Documented 10/04/21 18:15 Temp 39.4 Pulse 108 Resp 20 B/P (MAP) 116/64 (81) Pulse Ox 95 O2 Delivery Room Air Capillary Refill : Less Than 3 Seconds Height, Weight, BMI Height: 5'3.00" Weight: 285lbs. 0.0oz. 129.455160ws; 48.28 BMI Method:Stated General Appearance: No Apparent Distress, Anxious, Obese HEENT: PERRL/EOMI, Other (mouth swelling) Neck: Supple, Lymphadenopathy (R), Tender Lateral Respiratory: Lungs Clear, Normal Breath Sounds, No Respiratory Distress; No Stridor Cardiovascular: Regular Rate, Rhythm, No Edema, No Murmur Gastrointestinal: Normal Bowel Sounds, Non Tender, Soft Extremity: Normal Inspection, Non Tender, No Pedal Edema Neurologic/Psychiatric: Alert, Oriented x3, No Motor/Sensory Deficits Skin: Normal Color, Warm/Dry Results Results/Procedures Labs Laboratory Tests 10/04/21 18:23 10/05/21 05:33 Patient resulted labs reviewed. Imaging: Reviewed Imaging Report Assessment/Plan Admission Diagnosis Sepsis Admission Status: Inpatient Order (span 2 midnights) Reason for Inpatient Admission: Dental abscess Assessment and Plan Sepsis Dental abscess Submandibular lymphadenopathy ENT, Dr. Gaines consulted Recommends OMFS consult, Dr. Gotti, for tooth extraction Started on Clindamycin IV fluids NPO at midnight for possible procedure HTN GERD COPD Anxiety Continue home meds T2DM Hold metformin Sliding scale insulin Morbid obesity Clinically significant, no acute management needs DVT prophylaxis: Lovenox Diagnosis/Problems Diagnosis/Problems (1) Sepsis Status: Acute (2) Abscessed tooth Status: Acute (3) HTN (hypertension) Status: Chronic (4) T2DM (type 2 diabetes mellitus) Status: Chronic (5) COPD (chronic obstructive pulmonary disease) Status: Chronic (6) Morbid obesity Status: Chronic (7) Anxiety Status: Chronic STEPHANIE HENDRICKS MD October 05, 2021 19:07
[2021-10-05 20:00] VITALS: BP 123/77
[2021-10-05] MEDS: PROPRANOLOL 20 MG (INDERAL) TABLET PO SCH (21:19)
[2021-10-05] MEDS: LOSARTAN 50 MG (COZAAR) TAB PO SCH (21:19)
[2021-10-05] MEDS: busPIRone 10 MG (BUSPAR) TAB PO SCH (21:19)
[2021-10-05] MEDS: PANTOPRAZOLE 20 MG TABLET (PROTONIX) PO SCH (21:19)
[2021-10-05] MEDS: FAMOTIDINE 20 MG (PEPCID) TABLET PO SCH (21:19)
[2021-10-05] MEDS: ENOXAPARIN 40 MG/0.4 ML (LOVENOX) SYR SQ SCH (22:17)
[2021-10-06] VITALS (7 sets, daily range): BP systolic 114–162; BP diastolic 64–83
[2021-10-06] MEDS: CLINDAMYCIN 600 MG/50 ML IVPB 50 ML IV SCH ×3 (04:07→18:17)
[2021-10-06] MEDS: CATHETER FLUSH 10 ML SYR IVP SCH ×3 (06:16→22:31)
[2021-10-06 06:28] LABS: BASOPHILS % (AUTO) 0 % (0-10); EOSINOPHILS % (AUTO) 0 % (0-10); HEMATOCRIT 32 % (35-52); HEMOGLOBIN 10.5 g/dL (11.5-16.0); LYMPHOCYTES # (AUTO) 1.7 10^3/uL (1.0-4.0); LYMPHOCYTES % (AUTO) 6 % (12-44); MEAN CORPUSCULAR HEMOGLOBIN 28 pg (25-34); MEAN CORPUSCULAR HGB CONC 33 g/dL (32-36); MEAN CORPUSCULAR VOLUME 85 fL (80-99); MONOCYTES # (AUTO) 2.1 10^3/uL (0.0-1.0); MONOCYTES % (AUTO) 8 % (0-12); NEUTROPHILS # (AUTO) 23.3 10^3/uL (1.8-7.8); NEUTROPHILS % (AUTO) 85 % (42-75); PLATELET COUNT 270 10^3/uL (130-400); WHITE BLOOD COUNT 27.4 10^3/uL (4.3-11.0)
[2021-10-06 06:40] LABS: POTASSIUM 4.7 MMOL/L (3.6-5.0)
[2021-10-06 06:42] LABS: CALCIUM 8.6 MG/DL (8.5-10.1)
[2021-10-06 06:46] LABS: CREATININE SERUM 1.25 MG/DL (0.60-1.30)
[2021-10-06 06:54] LABS: LYMPHOCYTES % (MANUAL) 5 %; MONOCYTES % (MANUAL) 7 %; NEUTROPHILS % (MANUAL) 88 %
[2021-10-06 06:55] LABS: MICROCYTOSIS SLIGHT; PLATELET ESTIMATE SOME GIANT; POLYCHROMASIA SLIGHT; TOXIC GRANULATION/VACUOLAZATIO 1+
[2021-10-06] MEDS: NS IV 1000 ML 1,000 ML IV SCH ×3 (06:59→21:49)
[2021-10-06] MEDS: LORATADINE (CLARITIN) 10 MG TAB PO SCH (07:34)
[2021-10-06] MEDS: busPIRone 10 MG (BUSPAR) TAB PO SCH ×2 (07:34→22:30)
[2021-10-06] MEDS: FAMOTIDINE 20 MG (PEPCID) TABLET PO SCH ×2 (07:34→22:31)
[2021-10-06] MEDS: FERROUS SULF 325 MG (IRON) TAB PO SCH (07:34)
[2021-10-06] MEDS: ONDANSETRON 4 MG/2 ML (SDV) Z0FRAN IV PRN ×2 (07:59→12:08)
[2021-10-06] MEDS ORDERED: PATIENT MAY USE OWN MED,SINGLE MED PO SCH (08:00)
[2021-10-06] MEDS ORDERED: RT--FLUTICASONE/SALMETEROL 232-14 (AIRDUO RespiCLICK) IH SCH (08:00)
[2021-10-06] MEDS: [UNRECOGNIZED DRUG - REMARK] IH SCH ×2 (09:24→21:51)
[2021-10-06] MEDS: ACETAMINOPHEN 325 MG TABLET PO PRN (09:28)
[2021-10-06] MEDS: ENOXAPARIN 40 MG/0.4 ML (LOVENOX) SYR SQ SCH (10:43)
[2021-10-06] MEDS ORDERED: fentaNYL INJ 100 MCG/2 ML AMP IVP ONE (11:30)
[2021-10-06] MEDS ORDERED: MEROPENEM 500 MG in NS (IVPB) 100 ML IV SCH ×4 (12:00)
--- NOTE | 2021-10-06 12:02 | CONSULTATION REPORT ---
DATE OF SERVICE: ENT CONSULT LOCATION: Room 414, [facility]. REFERRING PHYSICIAN: Dr. Linder. REASON FOR CONSULTATION: Swollen right jaw. HISTORY OF PRESENT ILLNESS: The patient was admitted to the hospital yesterday with progressive swelling at the right angle of the mandible. She reports that her symptoms started on Tuesday afternoon with a toothache. It progressed to severe problem swallowing. She has had no problems with her airway. It was a little better yesterday but has worsened again today. She was admitted to the hospital yesterday and started on IV clindamycin. Unfortunately, she has not improved. She has a history of a known bad tooth on the lower right side. She reports she has been fractured in the past but has never been infected. She has not recently seen her dentist as she has had multiple other medical problems including COVID in July and she still has long COVID symptoms. MEDICATIONS: She is on no blood thinners. X-rays, the CT scan of the neck was reviewed. By report, there was no evidence of an abscess seen. However, when I looked at the CT and the retromolar region on the lower right, she has what appears to be 2 to 3 cm fluid collection adjacent to the one remaining molar on that side. This was in the masseter space region. She has a patent airway and there was no significant adenopathy or swelling seen lower in the neck. She has moderate swelling in the left submandibular triangle, but no abscess in that location. PHYSICAL EXAMINATION: GENERAL: She was in mild distress. She was having no airway issues. She was able to swallow her saliva and her voice was normal. FACE: She has swelling along the wide angle of the mandible, which creeps up to just about the level of the ear lobule on the lateral cheek. In addition, she has pain and swelling just beneath the angle of mandible on the right. No swelling seen on the left. EARS: Canals were normal. Tympanic membranes were intact and mobile. NOSE: Normal nasal mucosa, no masses or lesions seen. The oral cavity showed moderate trismus. She had no swelling of the floor of the mouth noted. She had good tongue mobility and there was a good airway present. She has a small oral cavity. There was no swelling of the soft palate seen. Larynx, good airway present. No stridor noted. NECK: Very tender to the touch in the region of the right mandible. IMPRESSION: 1. Right lower molar abscess. 2. Masseter space abscess -- right. RECOMMENDATIONS: Findings were discussed with the patient. She has all the signs and symptoms of a dental abscess and a masseter space abscess on the right. Potentially, if the tooth could be pulled, then the abscess would drain intraorally. At this time, she has a good airway present. She will need evaluation and treatment by an oral surgeon. If Dr. Gotti is available tomorrow, then a consult would be recommended. If he is not available, then she may need potential transfer to a facility where an oral surgeon can be consulted and tooth removed. Clindamycin is an excellent drug; however, I do not think she is going to get completely better until the tooth was removed and the abscess is drained. Thank you for the consultation. Job ID: [id number] DocumentID: [id number] Dictated Date: 10/05/2021 18:18:36 Senior Test Engineer Date: 10/05/2021 21:56:41 Dictated By: ALETHEA BECK MD
[2021-10-06] MEDS ORDERED: oxyCODONE 20 MG/1 ML ORAL CONC (RoxiCODONE) CHARGE PER 1 ML PO PRN (12:15)
[2021-10-06] MEDS ORDERED: diphenhydrAMINE 50 MG/ML INJ (BENADRYL) IM STA (12:57)
--- NOTE | 2021-10-06 18:08 | Progress Note - Hospitalist ---
Subjective HPI/CC On Admission Date Seen by Provider: October 06, 2021 Time Seen by Provider: 11:10 Christa Sandoval is a 55 year old female with PMH HTN, T2DM, GERD, COPD, morbid obesity, who presented with right sided jaw and neck pain. She reports that she has had a broken tooth on the right side for the past couple years. She was sup posed to have it evaluated for removal but was unable to follow up due to COVID. She reports having worsening tooth pain recently. The pain then moved to her jaw. Yesterday the pain started to move down to her neck. The pain in her tooth improved but has since returned. She has been having pain when swallowing. She started having fevers. She was unable to keep anything down. She denies trouble breathing. Subjective/Events-last exam She feels like she is doing about the same. She still has pain. She has pain with swallowing. She denies shortness of breath. She has not had any more fevers. Focused Exam Lactate Level 10/04/21 18:23: Lactic Acid Level 1.12 Objective Exam Vital Signs Vital Signs Date Time Temp Pulse Resp B/P (MAP) Pulse Ox O2 Delivery O2 Flow Rate FiO2 10/06/21 16:00 37.6 88 18 162/83 (109) 90 Nasal Cannula 2.00 Capillary Refill : Less Than 3 Seconds General Appearance: No Apparent Distress, Obese HEENT: Other (unable to open mouth adequately, no appreciable oral erythema) Neck: Lymphadenopathy (R), Tender Lateral Respiratory: Lungs Clear, No Respiratory Distress; No Stridor Cardiovascular: Regular Rate, Rhythm, No Edema, No Murmur Gastrointestinal: Normal Bowel Sounds, Non Tender, Soft Extremity: Normal Inspection, No Pedal Edema Neurologic/Psychiatric: Alert, Other (appears uncomfortable) Skin: Normal Color, Warm/Dry Results/Procedures Lab Laboratory Tests 10/06/21 06:10 Patient resulted labs reviewed. Imaging: Reviewed Imaging Report Assessment/Plan Assessment and Plan Assess & Plan/Chief Complaint Sepsis Dental abscess Submandibular lymphadenopathy ENT, Dr. Gaines consulted, recommends OMFS consult for tooth extraction OMFS consulted, Dr. Gotti, planning for procedure tomorrow Continue Clindamycin Adding Meropenem IV fluids NPO at midnight for tooth extraction and I&D Hold Lovenox HTN GERD COPD Anxiety Continue home meds T2DM Hold metformin Sliding scale insulin Morbid obesity Clinically significant, no acute management needs DVT prophylaxis: Lovenox, holding for procedure Diagnosis/Problems Diagnosis/Problems (1) Sepsis Status: Acute (2) Abscessed tooth Status: Acute (3) HTN (hypertension) Status: Chronic (4) T2DM (type 2 diabetes mellitus) Status: Chronic (5) COPD (chronic obstructive pulmonary disease) Status: Chronic (6) Morbid obesity Status: Chronic (7) Anxiety Status: Chronic STEPHANIE HENDRICKS MD October 06, 2021 18:08
[2021-10-06] MEDS: inSUlin ASPART (NovoLOG) 1 UNIT/0.01 ML (CHARGE PER UNIT) SC SCH ×2 (18:13→21:37)
[2021-10-06] MEDS ORDERED: diphenhydrAMINE 50 MG/ML INJ (BENADRYL) IVP PRN (21:45)
[2021-10-06] MEDS ORDERED: LORazepam INJ 2 MG/ML (ATIVAN) VIAL IVP PRN (21:45)
[2021-10-06] MEDS: KETOROLAC 15 MG/ML VIAL IVP PRN (21:48)
[2021-10-06] MEDS ORDERED: RT-ALBUTEROL SULF 2.5 MG/3 ML PRE-MIX VIAL INH PRN (22:15)
[2021-10-06] MEDS: LOSARTAN 50 MG (COZAAR) TAB PO SCH (22:30)
[2021-10-06] MEDS: PROPRANOLOL 20 MG (INDERAL) TABLET PO SCH (22:30)
[2021-10-06] MEDS: PANTOPRAZOLE 20 MG TABLET (PROTONIX) PO SCH (22:31)
[2021-10-07] VITALS (20 sets, daily range): BP systolic 117–175; BP diastolic 59–90
[2021-10-07] MEDS: CLINDAMYCIN 600 MG/50 ML IVPB 50 ML IV SCH ×3 (03:34→19:55)
[2021-10-07 05:29] LABS: BASOPHILS # (AUTO) 0.1 10^3/uL (0.0-0.1); BASOPHILS % (AUTO) 0 % (0-10); EOSINOPHILS # (AUTO) 0.1 10^3/uL (0.0-0.3); EOSINOPHILS % (AUTO) 0 % (0-10); HEMATOCRIT 32 % (35-52); LYMPHOCYTES # (AUTO) 1.5 10^3/uL (1.0-4.0); LYMPHOCYTES % (AUTO) 8 % (12-44); MEAN CORPUSCULAR HEMOGLOBIN 27 pg (25-34); MEAN CORPUSCULAR HGB CONC 32 g/dL (32-36); MEAN CORPUSCULAR VOLUME 86 fL (80-99); MEAN PLATELET VOLUME 10.9 fL (9.0-12.2); MONOCYTES # (AUTO) 1.6 10^3/uL (0.0-1.0); MONOCYTES % (AUTO) 9 % (0-12); NEUTROPHILS # (AUTO) 15.3 10^3/uL (1.8-7.8); NEUTROPHILS % (AUTO) 82 % (42-75); PLATELET COUNT 289 10^3/uL (130-400); WHITE BLOOD COUNT 18.7 10^3/uL (4.3-11.0)
--- NOTE | 2021-10-07 05:39 | Progress Note - Hospitalist ---
Subjective HPI/CC On Admission Date Seen by Provider: October 07, 2021 Time Seen by Provider: 09:00 Christa Sandoval is a 55 year old female with PMH HTN, T2DM, GERD, COPD, morbid obesity, who presented with right sided jaw and neck pain. She reports that she has had a broken tooth on the right side for the past couple years. She was sup posed to have it evaluated for removal but was unable to follow up due to COVID. She reports having worsening tooth pain recently. The pain then moved to her jaw. Yesterday the pain started to move down to her neck. The pain in her tooth improved but has since returned. She has been having pain when swallowing. She started having fevers. She was unable to keep anything down. She denies trouble breathing. Subjective/Events-last exam Pt is doing a lot better Having oral surgery at [address] Ana María Josue swab will be obtained White count down to 1800 Overall appears to be very chronically ill Review of Systems General: Fatigue, Malaise HEENT: Sinus Congestion Focused Exam Lactate Level Objective Exam Vital Signs Vital Signs Date Time Temp Pulse Resp B/P (MAP) Pulse Ox O2 Delivery O2 Flow Rate FiO2 10/08/21 04:56 30 10/08/21 04:00 36.3 61 14 146/75 (98) 97 Mechanical Ventilator 30.00 Capillary Refill : Less Than 3 Seconds General Appearance: No Apparent Distress, WD/WN, Anxious, Chronically ill, Obese, Other (Ahir and ashen) Respiratory: Lungs Clear, Normal Breath Sounds Cardiovascular: Regular Rate, Rhythm Neurologic/Psychiatric: Alert, Oriented x3, Depressed Affect Results/Procedures Lab Laboratory Tests 10/08/21 04:20 Patient resulted labs reviewed. Imaging: Reviewed Imaging Report Assessment/Plan Assessment and Plan Assess & Plan/Chief Complaint Sepsis Dental abscess preparing for I&D by Dr. Gotti Submandibular lymphadenopathy preparing for tooth extraction HTN GERD COPD Anxiety Continue home meds T2DM Hold metformin Sliding scale insulin Morbid obesity Clinically significant, no acute management needs DVT prophylaxis: ALBA Bray DO October 07, 2021 05:39
[2021-10-07 05:43] LABS: POTASSIUM 4.3 MMOL/L (3.6-5.0)
[2021-10-07 05:44] LABS: CALCIUM 8.6 MG/DL (8.5-10.1)
[2021-10-07 05:49] LABS: CREATININE SERUM 1.05 MG/DL (0.60-1.30)
[2021-10-07] MEDS: CATHETER FLUSH 10 ML SYR IVP SCH ×3 (06:02→21:36)
[2021-10-07] MEDS: inSUlin ASPART (NovoLOG) 1 UNIT/0.01 ML (CHARGE PER UNIT) SC SCH ×3 (06:02→17:11)
[2021-10-07] MEDS: FERROUS SULF 325 MG (IRON) TAB PO SCH (06:15)
[2021-10-07] MEDS: NS IV 1000 ML 1,000 ML IV SCH ×3 (06:17→21:35)
[2021-10-07] MEDS: [UNRECOGNIZED DRUG - REMARK] IH SCH ×2 (07:17→21:46)
[2021-10-07] MEDS: ONDANSETRON 4 MG/2 ML (SDV) Z0FRAN IV PRN (08:41)
[2021-10-07] MEDS: KETOROLAC 15 MG/ML VIAL IVP PRN (08:43)
[2021-10-07] MEDS: busPIRone 10 MG (BUSPAR) TAB PO SCH ×2 (08:44→20:05)
[2021-10-07] MEDS: LORATADINE (CLARITIN) 10 MG TAB PO SCH (08:44)
[2021-10-07] MEDS: FAMOTIDINE 20 MG (PEPCID) TABLET PO SCH ×2 (08:45→20:05)
[2021-10-07] MEDS ORDERED: NEO/POLY/BAC (NEOSPORIN) OINT 15 GM TUBE ONE (14:17)
[2021-10-07] MEDS ORDERED: LIDOCAINE/EPI 2% 1:200,00 (XYLOCAINE) 20 ML VIAL ONE (14:17)
[2021-10-07] MEDS ORDERED: ROPIVACAINE 5MG/ML 30ML VIAL ONE (14:29)
[2021-10-07] MEDS ORDERED: LACTATED RINGERS 1,000 ML IV PRN (15:15)
[2021-10-07] MEDS ORDERED: MIDAZOLAM 2 MG/2 ML (VERSED) VIAL ONE ×2 (15:32→16:34)
[2021-10-07] MEDS ORDERED: SEVOFLURANE (ULTANE) 15 ML INHAL SOLN ONE ×2 (15:32→16:35)
[2021-10-07] MEDS ORDERED: fentaNYL INJ 100 MCG/2 ML AMP ONE (15:32)
[2021-10-07] MEDS ORDERED: LIDOCAINE PF 2% 5 ML (XYLOCAINE) VIAL ONE (15:32)
[2021-10-07] MEDS ORDERED: ONDANSETRON 4 MG/2 ML (SDV) Z0FRAN ONE (15:32)
[2021-10-07] MEDS ORDERED: proPOfol 200 MG/20 ML (DIPRIVAN) VIAL IV ONE (15:32)
[2021-10-07] MEDS ORDERED: SUCCINYLCHOLINE INJ 20 MG/1 ML 10 ML VIAL ONE (16:32)
[2021-10-07] MEDS ORDERED: ROCURONIUM 50 MG/5 ML (ZEMURON) VIAL IV ONE (16:39)
[2021-10-07] MEDS ORDERED: PROPOFOL DRIP (ICU) 100 ML IV ONE (16:56)
[2021-10-07] MEDS: PROPOFOL DRIP (ICU) 100 ML IV SCH ×2 (17:11→21:29)
[2021-10-07] MEDS: ENOXAPARIN 40 MG/0.4 ML (LOVENOX) SYR SQ SCH (17:11)
[2021-10-07] MEDS ORDERED: HYDROmorphone 2 MG/ML VIAL (DILAUDID) IV ONE (17:30)
[2021-10-07] MEDS ORDERED: ONDANSETRON 4 MG/2 ML (SDV) Z0FRAN IVP PRN (17:30)
[2021-10-07] MEDS ORDERED: morphine INJ 10 MG/ML 1ML (SYR OR VIAL) IVP ONE (17:30)
--- NOTE | 2021-10-07 17:37 | Diagnostic Imaging Report ---
EXAMINATION: Chest, one view. HISTORY: Tube and line placement. COMPARISON: 09/30/2021. FINDINGS: Heart size and pulmonary vasculature are normal. There are low lung volumes with patchy interstitial opacities seen throughout both lungs. No pleural effusion or pneumothorax. Degenerative changes of the thoracic spine. Osseous structures are otherwise intact. An endotracheal tube is present approximately 2.9 cm above the vikas. Enteric catheter is present coursing below the diaphragm with the tip projecting over the stomach. IMPRESSION: 1. Low lung volumes with patchy interstitial opacities seen throughout both lungs. These findings can be seen with pneumonia or pulmonary edema. 2. Enteric catheter and endotracheal tube in appropriate position. Dictated by: Dictated on workstation # [id number]
[2021-10-07] MEDS ORDERED: fentaNYL INJ 100 MCG/2 ML AMP IVP PRN (18:15)
--- NOTE | 2021-10-07 18:50 | Tele-ICU Consult ---
History of Present Illness History of Present Illness Date Seen by Provider: October 07, 2021 Time Seen by Provider: 18:50 Date of Admission (Tele-ICU Physician , consultation) Available chart/ vitals / labs / Images reviewed H&P is from ER notes Patient's information available about PMH, Shx, Fhx allergy reviewed in EMR. ROS as per chart and RN report Now in ICU, hemodynamically stable Video assessment done using teleICU camera, rest of exam as per RN Discussed with RN. Sedation gtt: ( RASS ) VENT SETTINGS and ABG reviewed Not candidate for SBT today REVIEWED Cardiovascular Stability / Sedation Score / FI02/PEEP / ABG / CXR Consultants: Hospital course: (10/04) originally for right jaw pain and neck pain CT showed submandibular gland with inflammatory stranding (10/07) 55 y F from OR s/p I & D submandibular and submental space and extraction of indicated teeth (right submandibular gland infection) INTUBATED (cxr shows opacities) A/P Acute resp failure - post op - AC 80% + 5 - cont monitor tonight on vent with face /neck edema - keep sedated with propofol , reassess for ecxtubation AM S/p p I & D submandibular and submental space and extraction of indicated teeth by OMFS 10/07 - Clindamycin, Meropenem COPD - nebs DM II -ISS , off metformin Morbid obesity Lines : (Central Line Necessity Reviewed) Myers: + OG: Nutrition: npo Analgesia: Anxiety/ delirium VTE Prophylaxis: scd Stress Ulcer Prophylaxis: Glycemic Control: Plans in collaboration with bedside consultants and IM MDs. Discussed with RN to reach out if any questions or concerns A total of _ minutes of critical care time was devoted to this patient today, required to treat and/or prevent further deterioration of critical care condition ( as above ) . Allergies and Home Medications Allergies Coded Allergies: Penicillins (Unverified Allergy, Severe, HIVES, THROAT SWELLS, DIFFICULTY BREATHING, 02/10/07) hydrocodone (Verified Allergy, Intermediate, "MAKES HER FEEL VERY BAD", 12/15/15) latex (Verified Allergy, Mild, RASH, 11/07/15) Cephalosporins (Unverified Allergy, Unknown, 12/16/15) celecoxib (Unverified Allergy, Unknown, 11/08/15) empagliflozin (Verified Allergy, Unknown, 02/05/21) Uncoded Allergies: TAPE (Adverse Reaction, Mild, RASH, WHELPS ON SKIN WHERE TAPE WAS., 02/10/07) Home Medications Albuterol Sulfate 1 Puff Puff, 1 PUFF INH Q8H PRN for SHORTNESS OF BREATH, (Reported) Alprazolam 1 Mg Tablet, 1 MG PO BID PRN for ANXIETY, (Reported) Budesonide/Glycopyr/Formoterol 160 Mcg-9 Mcg-4.8 Mcg/Actuation Hfa.aer.ad, 2 PUFF INH BID, (Reported) Buspirone HCl 10 Mg Tablet, 10 MG PO BID, (Reported) Dulaglutide 0.75 Mg/0.5 Ml Pen.injctr, 0.75 MG IJ THUR, (Reported) Escitalopram Oxalate 10 Mg Tablet, 10 MG PO HS, (Reported) Esomeprazole Magnesium 20 Mg Capsule.dr, 20 MG PO HS, (Reported) Famotidine 20 Mg Tablet, 20 MG PO BID, (Reported) Ferrous Sulfate 325 Mg (65 Mg Iron) Tablet, 325 MG PO DAILY, (Reported) Fexofenadine HCl 180 Mg Tablet, 180 MG PO DAILY, (Reported) Irbesartan 150 Mg Tablet, 150 MG PO HS, (Reported) Meclizine HCl 25 Mg Tablet, 25 MG PO Q8H PRN for VERTIGO, (Reported) Metformin HCl 500 Mg Tab.er.24h, 1,000 MG PO HS, (Reported) TAKES 2 (500MG) TABS Metformin HCl 500 Mg Tab.er.24, 500 MG PO DAILY, (Reported) Naproxen Sodium 220 Mg Capsule, 220 MG PO TID PRN for PAIN-MILD (1-4), (Reported) Propranolol HCl 40 Mg Tablet, 40 MG PO HS, (Reported) Past Medical/Social/Family Hx Patient Social History Tobacco Use?: No Use of E-Cig and/or Vaping dev: No Substance use?: No Alcohol Use?: No Pt stated abuse/neglect: No Immunizations Up To Date Influenza Vaccine Up-to-Date: No; Not Current First/Initial COVID19 Vaccinat: NO Second COVID19 Vaccination Cesario: NO Tetanus Booster (TDap): Unknown Date of Pneumonia Vaccine: Jun 27, 2013 Current Status status: No status: No Advance Directives: No Communicates: Verbally Primary Language: Kyrgyz Preferred Spoken Language: Kyrgyz Is interpretation needed?: No Implanted or Applied Medical D: None Review of Systems Constitutional: see HPI Focused Exam Height, Weight, BMI Height: 5'3.00" Weight: 285lbs. 0.0oz. 129.720496xb; 48.28 BMI Method:Stated Exam Exam Patient acknowledged, consented, and participated in this virtual visit which was conducted using real time audio/video Vital Signs Date Time Temp Pulse Resp B/P (MAP) Pulse Ox O2 Delivery O2 Flow Rate FiO2 10/07/21 18:00 85 5 141/77 (98) 100 Mechanical Ventilator 80.00 10/07/21 17:30 Mechanical Ventilator 10/07/21 17:30 37.0 87 15 134/77 (96) 100 Mechanical Ventilator 80.00 10/07/21 17:19 37.1 14 128/70 (89) 100 Mechanical Ventilator 10/07/21 17:11 14/65 10/07/21 17:09 14 124/65 (84) 99 Mechanical Ventilator 10/07/21 16:59 14 175/90 (118) 99 Mechanical Ventilator 10/07/21 16:57 106 15 99 80 10/07/21 16:51 99 10/07/21 16:49 37.1 12 128/66 (86) 100 Ambu Bag 10 10/07/21 16:49 Ambu Bag 10 10/07/21 11:51 37.2 84 16 147/78 (101) 98 Nasal Cannula 2.00 10/07/21 08:00 Nasal Cannula 2.00 10/07/21 07:34 37.2 90 16 151/83 (105) 98 Nasal Cannula 2.00 10/07/21 07:18 99 Nasal Cannula 2.00 10/07/21 03:30 36.8 83 18 125/59 (81) 98 Nasal Cannula 2.00 10/07/21 00:09 36.4 82 20 117/73 (88) 98 Nasal Cannula 2.00 10/06/21 22:30 36.8 10/06/21 21:57 39.4 108 95 21 10/06/21 21:48 38.1 10/06/21 20:00 Nasal Cannula 2.00 10/06/21 20:00 38.1 91 19 146/68 (94) 96 Nasal Cannula 2.00 I & O 10/07/21 07:00 Intake Total 250 ml Output Total 1500 ml Balance -1250 ml Height & Weight Height: 5'3.00" Weight: 285lbs. 0.0oz. 129.793262jt; 48.28 BMI Method:Stated General Appearance: No Apparent Distress, Obese HEENT: Other (unable to open mouth adequately, no appreciable oral erythema) Neck: Lymphadenopathy (R), Tender Lateral Respiratory: Lungs Clear, No Respiratory Distress; No Stridor Cardiovascular: Regular Rate, Rhythm, No Edema, No Murmur Capillary Refill: Less Than 3 Seconds Gastrointestinal: normal bowel sounds, non tender, soft, no organomegaly Extremity: Normal Inspection, No Pedal Edema Neurologic/Psychiatric: Alert, Other (appears uncomfortable) Skin: Normal Color, Warm/Dry Results Lab Laboratory Tests 10/06/21 06:10 10/07/21 05:18 Assessment/Plan Assessment/Plan 1 CHARAN PERKINS MD October 07, 2021 18:50
[2021-10-07 18:51] LABS: ABG BASE EXCESS -6.2 MMOL/L (-2.5-2.5); ABG OXYGEN SATURATION 100 % (94-100); ABG PCO2 41 MMHG (35-45); ABG PO2 259 MMHG (79-93); ABG TCO2 20.7 MMOL/L (21.0-31.0)
[2021-10-07 18:54] LABS: ALLENS TEST YES-POS; INSPIRED O2 80%; PATIENT TEMP 36.1; VENTILATOR YES
[2021-10-07] MEDS: PANTOPRAZOLE 20 MG TABLET (PROTONIX) PO SCH (20:05)
[2021-10-07] MEDS: LOSARTAN 50 MG (COZAAR) TAB PO SCH (20:05)
[2021-10-07] MEDS: PROPRANOLOL 20 MG (INDERAL) TABLET PO SCH (20:05)
[2021-10-08] VITALS (25 sets, daily range): BP systolic 128–169; BP diastolic 61–91
[2021-10-08] MEDS: inSUlin ASPART (NovoLOG) 1 UNIT/0.01 ML (CHARGE PER UNIT) SQ SCH ×5 (00:04→23:04)
[2021-10-08] MEDS: NS IV 1000 ML 1,000 ML IV SCH ×3 (01:00→17:40)
--- NOTE | 2021-10-08 02:01 | CONSULTATION REPORT ---
DATE OF SERVICE: 10/07/2021 CONSULT AND PREOP NOTE I was called to evaluate the patient, who is a 55-year-old white female with numerous medical problems. The reason I was consulted she has a right submandibular abscess caused by a decayed and nonrestorable tooth #31. They have already performed a CT prior to consulting me, which she has a malignancy. She had an asymmetric prominence of the right submandibular gland, but I think this is the region and no yellow fluid loculations at this time, but certainly has edema, tenderness and redness in that region. She can open to approximately 25 mm. States the tooth has been fractured and painful off and on for greater than 6 months, almost to a year. She has not been able to get in to seek dental care due to an episode of the coronavirus and lastly of strep throat. Her medical history is significant for COPD. She is morbidly obese, has diabetes type 2, also has difficulties with her spinal vertebral, where she has compression fractures in the past and has spinal stenosis, both lumbar and cervical and also has some form of dysphagia prior to this incident with the tooth that started a year ago. After evaluating her, I advised her that tooth needed to be extracted as she had been admitted to the hospital over the weekend and placed on clindamycin 300 IV and then given supportive care, but at the present time, this has not resolved her infection. Subsequently, I spoke with her and advised her of her diagnosis and that she would need to have the tooth removed and then an extraoral incision and drainage of the submandibular region and submental region as well as intraorally, we will make an incision and draining as well as remove this tooth. I gave her the risks versus benefits for the procedure, ____ while low potential injury to the facial nerve on the right side as well as possibly altered sensation in the distribution of the right branch of the ____. After this, she was allowed to ask questions, they were answered and she was scheduled for surgery at the earliest opportune time. Job ID: [id number] DocumentID: [id number] Dictated Date: 10/07/2021 17:20:08 City Director Date: 10/07/2021 18:46:44 Dictated By: MARTIN DUKE DDS
[2021-10-08] MEDS: fentaNYL INJ 100 MCG/2 ML AMP IVP PRN ×8 (02:26→17:50)
[2021-10-08] MEDS: CLINDAMYCIN 600 MG/50 ML IVPB 50 ML IV SCH ×3 (02:28→19:25)
[2021-10-08] MEDS: PROPOFOL DRIP (ICU) 100 ML IV SCH ×3 (02:29→12:54)
[2021-10-08 04:29] LABS: ABG BASE EXCESS -4.8 MMOL/L (-2.5-2.5); ABG OXYGEN SATURATION 98 % (94-100); ABG PCO2 38 MMHG (35-45); ABG PO2 90 MMHG (79-93); ABG TCO2 21.2 MMOL/L (21.0-31.0); BASOPHILS % (AUTO) 0 % (0-10); EOSINOPHILS % (AUTO) 0 % (0-10); HEMATOCRIT 29 % (35-52); HEMOGLOBIN 9.3 g/dL (11.5-16.0); LYMPHOCYTES # (AUTO) 0.9 10^3/uL (1.0-4.0); LYMPHOCYTES % (AUTO) 5 % (12-44); MEAN CORPUSCULAR HEMOGLOBIN 27 pg (25-34); MEAN CORPUSCULAR HGB CONC 32 g/dL (32-36); MEAN CORPUSCULAR VOLUME 86 fL (80-99); MEAN PLATELET VOLUME 10.8 fL (9.0-12.2); MONOCYTES # (AUTO) 0.7 10^3/uL (0.0-1.0); MONOCYTES % (AUTO) 4 % (0-12); NEUTROPHILS # (AUTO) 17.3 10^3/uL (1.8-7.8); NEUTROPHILS % (AUTO) 90 % (42-75); PLATELET COUNT 262 10^3/uL (130-400); WHITE BLOOD COUNT 19.2 10^3/uL (4.3-11.0)
[2021-10-08 04:33] LABS: ALLENS TEST POSITIVE; INSPIRED O2 30%; PATIENT TEMP 36.3; VENTILATOR YES
[2021-10-08 04:34] LABS: ABG PH 7.34 (7.37-7.43)
[2021-10-08 04:48] LABS: ALBUMIN 2.6 GM/DL (3.2-4.5); POTASSIUM 4.6 MMOL/L (3.6-5.0)
[2021-10-08 04:49] LABS: CALCIUM 8.7 MG/DL (8.5-10.1)
[2021-10-08 04:51] LABS: TOTAL PROTEIN 5.6 GM/DL (6.4-8.2)
[2021-10-08 04:52] LABS: BILIRUBIN,TOTAL 0.4 MG/DL (0.1-1.0)
[2021-10-08 04:54] LABS: CREATININE SERUM 0.96 MG/DL (0.60-1.30); PHOSPHORUS 3.4 MG/DL (2.3-4.7)
[2021-10-08 04:57] LABS: MAGNESIUM 1.7 MG/DL (1.6-2.4)
[2021-10-08] MEDS: KCL 20 MEQ TAB (K-DUR) PO SCH (04:59)
[2021-10-08] MEDS: MAGNESIUM 1 GM/100 ML IVPB 100 ML IV SCH ×3 (04:59→05:34)
[2021-10-08] MEDS: POTASSIUM CL 10MEQ/50ML IVPB 50 ML IV SCH (04:59)
[2021-10-08] MEDS: FERROUS SULF 325 MG (IRON) TAB PO SCH (05:34)
[2021-10-08] MEDS: CATHETER FLUSH 10 ML SYR IVP SCH ×3 (05:34→21:19)
--- NOTE | 2021-10-08 06:35 | Progress Note - Hospitalist ---
Subjective HPI/CC On Admission Date Seen by Provider: October 08, 2021 Time Seen by Provider: 10:30 Christa Sandoval is a 55 year old female with PMH HTN, T2DM, GERD, COPD, morbid obesity, who presented with right sided jaw and neck pain. She reports that she has had a broken tooth on the right side for the past couple years. She was sup posed to have it evaluated for removal but was unable to follow up due to COVID. She reports having worsening tooth pain recently. The pain then moved to her jaw. Yesterday the pain started to move down to her neck. The pain in her tooth improved but has since returned. She has been having pain when swallowing. She started having fevers. She was unable to keep anything down. She denies trouble breathing. Subjective/Events-last exam Pt remained intubated after surgery due to airway compromised due to swelling from submandibular abscess Labs reviewed Sister at the bedside Checked meds and labs Antibiotics maintained Objective Exam Vital Signs Vital Signs Date Time Temp Pulse Resp B/P (MAP) Pulse Ox O2 Delivery O2 Flow Rate FiO2 10/09/21 03:15 98 Nasal Cannula 2.00 10/09/21 03:15 37.4 71 19 147/75 (99) 10/08/21 13:24 30 Capillary Refill : Less Than 3 Seconds General Appearance: No Apparent Distress, WD/WN, Chronically ill, Other (Sedated and intubated) Respiratory: Lungs Clear, Normal Breath Sounds Cardiovascular: Regular Rate, Rhythm Results/Procedures Lab Laboratory Tests 10/09/21 03:44 Patient resulted labs reviewed. Imaging: Reviewed Imaging Report Assessment/Plan Assessment and Plan Assess & Plan/Chief Complaint Sepsis Dental abscess status post I&D by Dr. Gotti postop day #1 Acute respiratory failure following surgery unable to extubate Postop site edema compromising airway requiring maintained ventilator Submandibular lymphadenopathy preparing for tooth extraction HTN GERD COPD Anxiety Continue home meds T2DM Hold metformin Sliding scale insulin Morbid obesity Clinically significant, no acute management needs DVT prophylaxis: Lovenox Plan: eICU appreciated Vent management IV antibiotics ALBA VARGAS DO October 08, 2021 06:35
[2021-10-08] MEDS: [UNRECOGNIZED DRUG - REMARK] IH SCH ×2 (07:18→21:48)
[2021-10-08] MEDS: LORATADINE (CLARITIN) 10 MG TAB PO SCH (08:06)
[2021-10-08] MEDS: busPIRone 10 MG (BUSPAR) TAB PO SCH ×2 (08:06→20:33)
[2021-10-08] MEDS: FAMOTIDINE 20 MG (PEPCID) TABLET PO SCH ×2 (08:06→20:33)
--- NOTE | 2021-10-08 09:42 | Tele-ICU Progress Note ---
Subjective Date Seen by a Provider: October 08, 2021 Time Seen by a Provider: 09:42 Sepsis Event Evaluation Height, Weight, BMI Height: 5'3.00" Weight: 285lbs. 0.0oz. 129.816634je; 53.16 BMI Method:Stated Exam Exam Patient acknowledged, consented, and participated in this virtual visit which was conducted using real time audio/video Vital Signs Date Time Temp Pulse Resp B/P (MAP) Pulse Ox O2 Delivery O2 Flow Rate FiO2 10/08/21 09:24 30 10/08/21 09:00 61 14 155/85 (108) 97 Mechanical Ventilator 30.00 10/08/21 08:35 63 157/85 10/08/21 08:00 64 10 166/87 (113) 97 Mechanical Ventilator 30.00 10/08/21 08:00 97 Mechanical Ventilator 30 10/08/21 07:35 36.0 10/08/21 07:18 65 16 98 30 10/08/21 07:00 60 14 138/73 (94) 97 Mechanical Ventilator 30.00 10/08/21 07:00 60 10/08/21 06:00 62 14 137/73 (94) 97 Mechanical Ventilator 30.00 10/08/21 05:00 63 14 153/78 (103) 98 Mechanical Ventilator 30.00 10/08/21 04:56 30 10/08/21 04:06 30 10/08/21 04:00 36.3 61 14 146/75 (98) 97 Mechanical Ventilator 30.00 10/08/21 04:00 97 Mechanical Ventilator 30 10/08/21 03:40 36.5 10/08/21 03:00 62 14 138/74 (95) 96 Mechanical Ventilator 30.00 10/08/21 02:29 64 148/75 10/08/21 02:23 65 16 98 30 10/08/21 02:00 63 14 148/75 (99) 97 Mechanical Ventilator 30.00 10/08/21 01:02 30 10/08/21 01:00 64 10/08/21 01:00 64 14 145/75 (98) 97 Mechanical Ventilator 30.00 10/08/21 00:10 98 Mechanical Ventilator 30 10/08/21 00:00 65 14 135/72 (93) 98 Mechanical Ventilator 30.00 10/07/21 23:37 36.0 10/07/21 23:00 65 5 132/69 (90) 100 Mechanical Ventilator 30.00 10/07/21 22:31 36.9 10/07/21 22:00 68 5 123/66 (85) 100 Mechanical Ventilator 30.00 10/07/21 21:46 65 14 100 30 10/07/21 21:29 66 121/75 10/07/21 21:25 30 10/07/21 21:00 67 5 121/75 (90) 100 Mechanical Ventilator 30.00 10/07/21 20:00 78 14 150/74 (99) 100 Mechanical Ventilator 30.00 10/07/21 20:00 99 Mechanical Ventilator 30 10/07/21 19:55 36.0 84 14 155/80 (105) 99 Mechanical Ventilator 30.00 10/07/21 19:45 36.3 10/07/21 19:30 40 10/07/21 19:15 Mechanical Ventilator 40.00 10/07/21 19:08 81 14 99 40 10/07/21 19:00 100 Mechanical Ventilator 80.00 10/07/21 19:00 84 14 153/81 (105) 100 Mechanical Ventilator 80.00 10/07/21 19:00 84 10/07/21 18:00 85 5 141/77 (98) 100 Mechanical Ventilator 80.00 10/07/21 17:30 Mechanical Ventilator 10/07/21 17:30 37.0 87 15 134/77 (96) 100 Mechanical Ventilator 80.00 10/07/21 17:30 Mechanical Ventilator 80 10/07/21 17:19 37.1 14 128/70 (89) 100 Mechanical Ventilator 10/07/21 17:11 14/65 10/07/21 17:09 14 124/65 (84) 99 Mechanical Ventilator 10/07/21 16:59 14 175/90 (118) 99 Mechanical Ventilator 10/07/21 16:57 106 15 99 80 10/07/21 16:51 99 10/07/21 16:49 37.1 12 128/66 (86) 100 Ambu Bag 10 10/07/21 16:49 Ambu Bag 10 10/07/21 11:51 37.2 84 16 147/78 (101) 98 Nasal Cannula 2.00 I & O 10/08/21 07:00 Intake Total 1450 ml Output Total 1550 ml Balance -100 ml Height & Weight Height: 5'3.00" Weight: 285lbs. 0.0oz. 129.262259jj; 53.16 BMI Method:Stated General Appearance: No Apparent Distress, WD/WN, Anxious, Chronically ill, Obese, Other (Hair and ashen) HEENT: Other (unable to open mouth adequately, no appreciable oral erythema) Neck: Lymphadenopathy (R), Tender Lateral Respiratory: Lungs Clear, Normal Breath Sounds Cardiovascular: Regular Rate, Rhythm Capillary Refill: Less Than 3 Seconds Gastrointestinal: normal bowel sounds, non tender, soft, no organomegaly Extremity: Normal Inspection, No Pedal Edema Neurologic/Psychiatric: Alert, Oriented x3, Depressed Affect Skin: Normal Color, Warm/Dry Results Lab Laboratory Tests 10/07/21 05:18 10/08/21 04:20 Assessment/Plan Assessment/Plan (Tele-ICU Physician , Progress Note ) Available chart/ vitals / labs / Images reviewed Video assessment done using teleICU camera, rest of exam as per RN Discussed with RN , EXAM PER RN Events overnight : Afebrile FiO2 - I/O = neg 1l Drips: Pressors: , hemodynamically stable Consultants: Sedation gtt: ( RASS ) VENT SETTINGS and ABG reviewed candidate for SBT today REVIEWED Cardiovascular Stability / Sedation Score / FI02/PEEP / ABG / CXR Consultants: Hospital course: (10/04) originally for right jaw pain and neck pain CT showed submandibular gland with inflammatory stranding (10/07) 55 y F from OR s/p I & D submandibular and submental space and extraction of indicated teeth (right submandibular gland infection) INTUBATED (cxr shows opacities) A/P Acute resp failure - post op - AC 30 % + 5 14 - 450 - reassess for EXTUBATION , will check cuff leak test S/p p I & D submandibular and submental space and extraction of indicated teeth by OMFS 10/07 - Clindamycin, Meropenem COPD - nebs DM II -ISS , off metformin Anemia - stable Morbid obesity Lines : PICC to be place today (Central Line Necessity Reviewed) Myers: + OG: Nutrition: npo Analgesia: Anxiety/ delirium VTE Prophylaxis: scd. lovenox to resume when OK with Sx Stress Ulcer Prophylaxis: Plans in collaboration with bedside consultants and IM MDs. Discussed with RN to reach out if any questions or concerns A total of 32 minutes of critical care time was devoted to this patient today, required to treat and/or prevent further deterioration of critical care condition ( as above ) . CHARAN PERKINS MD October 08, 2021 09:42
--- NOTE | 2021-10-08 13:50 | Anesthesia-General Post-Op ---
General Patient Condition Mental Status/LOC: Same as Preop Cardiovascular: Satisfactory Nausea/Vomiting: Absent Respiratory: Satisfactory Pain: Controlled Complications: Absent Post Op Complications Complications None Follow Up Care/Instructions Patient Instructions None needed. Anesthesia/Patient Condition Patient Condition Patient is doing well, no complaints, stable vital signs, no apparent adverse anesthesia problems. No complications reported per nursing. KALYN DUCKWORTH CRNA October 08, 2021 13:50
[2021-10-08] MEDS: ONDANSETRON 4 MG/2 ML (SDV) Z0FRAN IV PRN (17:50)
[2021-10-08] MEDS: LOSARTAN 50 MG (COZAAR) TAB PO SCH (20:33)
[2021-10-08] MEDS: PANTOPRAZOLE 20 MG TABLET (PROTONIX) PO SCH (20:33)
[2021-10-08] MEDS: PROPRANOLOL 20 MG (INDERAL) TABLET PO SCH (20:33)
[2021-10-08] MEDS: KETOROLAC 15 MG/ML VIAL IVP PRN (20:33)
[2021-10-08] MEDS: ENOXAPARIN 40 MG/0.4 ML (LOVENOX) SYR SQ SCH (22:58)
[2021-10-09] VITALS (16 sets, daily range): BP systolic 125–174; BP diastolic 59–84
[2021-10-09] MEDS: PROPOFOL DRIP (ICU) 100 ML IV SCH (03:04)
[2021-10-09] MEDS: CLINDAMYCIN 600 MG/50 ML IVPB 50 ML IV SCH ×3 (03:08→18:18)
[2021-10-09] MEDS: NS IV 1000 ML 1,000 ML IV SCH ×2 (03:11→14:33)
[2021-10-09] MEDS: KETOROLAC 15 MG/ML VIAL IVP PRN ×3 (03:12→18:22)
[2021-10-09] MEDS: ONDANSETRON 4 MG/2 ML (SDV) Z0FRAN IV PRN ×2 (03:12→12:03)
[2021-10-09 03:50] LABS: BASOPHILS % (AUTO) 0 % (0-10); EOSINOPHILS % (AUTO) 0 % (0-10); HEMATOCRIT 29 % (35-52); HEMOGLOBIN 9.3 g/dL (11.5-16.0); LYMPHOCYTES # (AUTO) 1.2 10^3/uL (1.0-4.0); LYMPHOCYTES % (AUTO) 7 % (12-44); MEAN CORPUSCULAR HEMOGLOBIN 27 pg (25-34); MEAN CORPUSCULAR HGB CONC 33 g/dL (32-36); MEAN CORPUSCULAR VOLUME 84 fL (80-99); MEAN PLATELET VOLUME 10.6 fL (9.0-12.2); MONOCYTES # (AUTO) 1.1 10^3/uL (0.0-1.0); MONOCYTES % (AUTO) 6 % (0-12); NEUTROPHILS % (AUTO) 84 % (42-75); PLATELET COUNT 307 10^3/uL (130-400); WHITE BLOOD COUNT 17.9 10^3/uL (4.3-11.0)
[2021-10-09 04:01] LABS: ALBUMIN 2.5 GM/DL (3.2-4.5); POTASSIUM 4.1 MMOL/L (3.6-5.0)
[2021-10-09 04:02] LABS: CALCIUM 8.5 MG/DL (8.5-10.1)
[2021-10-09 04:03] LABS: TOTAL PROTEIN 5.4 GM/DL (6.4-8.2)
[2021-10-09 04:05] LABS: BILIRUBIN,TOTAL 0.4 MG/DL (0.1-1.0)
[2021-10-09 04:07] LABS: CREATININE SERUM 0.93 MG/DL (0.60-1.30); PHOSPHORUS 2.8 MG/DL (2.3-4.7)
[2021-10-09 04:10] LABS: MAGNESIUM 1.9 MG/DL (1.6-2.4)
[2021-10-09] MEDS: MAGNESIUM 1 GM/100 ML IVPB 100 ML IV SCH (05:42)
[2021-10-09] MEDS: KCL 20 MEQ TAB (K-DUR) PO SCH (05:42)
[2021-10-09] MEDS: inSUlin ASPART (NovoLOG) 1 UNIT/0.01 ML (CHARGE PER UNIT) SQ SCH ×4 (05:42→21:00)
[2021-10-09] MEDS: CATHETER FLUSH 10 ML SYR IVP SCH ×3 (05:42→22:00)
[2021-10-09] MEDS: POTASSIUM CL 10MEQ/50ML IVPB 50 ML IV SCH (05:42)
[2021-10-09] MEDS: FERROUS SULF 325 MG (IRON) TAB PO SCH (05:55)
--- NOTE | 2021-10-09 06:09 | Progress Note - Hospitalist ---
Subjective HPI/CC On Admission Date Seen by Provider: October 09, 2021 Time Seen by Provider: 10:00 Christa Sandoval is a 55 year old female with PMH HTN, T2DM, GERD, COPD, morbid obesity, who presented with right sided jaw and neck pain. She reports that she has had a broken tooth on the right side for the past couple years. She was sup posed to have it evaluated for removal but was unable to follow up due to COVID. She reports having worsening tooth pain recently. The pain then moved to her jaw. Yesterday the pain started to move down to her neck. The pain in her tooth improved but has since returned. She has been having pain when swallowing. She started having fevers. She was unable to keep anything down. She denies trouble breathing. Subjective/Events-last exam Pt is doing very well Extubated Transferring to 4th floor IS will be ordered PT and OT will be ordered Review of Systems General: Fatigue, Malaise Pulmonary: Dyspnea Objective Exam Vital Signs Vital Signs Date Time Temp Pulse Resp B/P (MAP) Pulse Ox O2 Delivery O2 Flow Rate FiO2 10/10/21 04:00 36.4 71 18 178/79 (112) 94 Room Air 10/09/21 14:32 2.00 10/08/21 13:24 30 Capillary Refill : Less Than 3 Seconds General Appearance: No Apparent Distress, WD/WN, Chronically ill, Obese Respiratory: No Accessory Muscle Use, No Respiratory Distress, Crackles, Decreased Breath Sounds Cardiovascular: Regular Rate, Rhythm Neurologic/Psychiatric: Alert, Oriented x3 Results/Procedures Lab Laboratory Tests 10/10/21 04:33 Patient resulted labs reviewed. Imaging: Reviewed Imaging Report Assessment/Plan Assessment and Plan Assess & Plan/Chief Complaint Sepsis Dental abscess status post I&D by Dr. Gotti postop day #2 Acute respiratory failure following surgery unable to extubate Postop site edema compromising airway requiring maintained ventilator Submandibular lymphadenopathy preparing for tooth extraction HTN GERD COPD Anxiety Continue home meds T2DM Hold metformin Sliding scale insulin Morbid obesity Clinically significant, no acute management needs DVT prophylaxis: Lovenox Plan: eICU appreciated Vent management IV antibiotics 10/09/2021: Antibiotics Dressing changes Incentive spirometer ALBA VARGAS DO October 09, 2021 06:09
[2021-10-09] MEDS: [UNRECOGNIZED DRUG - REMARK] IH SCH ×2 (07:06→23:05)
[2021-10-09] MEDS: ENOXAPARIN 40 MG/0.4 ML (LOVENOX) SYR SQ SCH ×2 (09:12→20:24)
[2021-10-09] MEDS: LORATADINE (CLARITIN) 10 MG TAB PO SCH (09:12)
[2021-10-09] MEDS: FAMOTIDINE 20 MG (PEPCID) TABLET PO SCH ×2 (09:12→20:16)
[2021-10-09] MEDS: busPIRone 10 MG (BUSPAR) TAB PO SCH ×2 (09:12→20:17)
--- NOTE | 2021-10-09 11:33 | Occupational Therapy Eval ---
OT Evaluation-General/PLF Medical Diagnosis Admission Date October 04, 2021 at 20:57 Medical Diagnosis: Sepsis/ dental abscess Onset Date: October 04, 2021 Therapy Diagnosis Therapy Diagnosis: reduced endurance, strength, adls Height/Weight Height (Feet): 5 Height (Inches): 3.00 Weight (Pounds): 285 Weight (Ounces): 0.0 Precautions Precautions/Isolations: Fall Prevention, Standard Precautions, Pressure Ulcer Referral Physician: Pamela Referral Reason: Evaluation/Treatment Medical History Pertinent Medical History: DM, GERD, HTN Additional Medical History obesity Current History Pt presents to hospital with R sided jaw and neck pain. I&D for dental abscess. Following surgery, pt intubated due to airway compromised secondary to swelling from submandibular abscess. 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 She uses a cane at baseline. She reports that she was indep with adls and iadls however it was not always easy. Reviewed History: Yes Social History Home: Single Level Current Living Status: Children Entry Into Home: Stairs With Railing ADL-Prior Level of Function SCALE: Activities may be completed with or without assistive devices. 1-Aiivxbysjk-haiivna completes the activity by him/herself with no assistance from a helper. 5-Set-up or Clean-up Assistance-helper sets up or cleans up; patient completes activity. [place] assists only prior to or following the activity. 4-Supervision or Touching Assistance-helper provides verbal cues and/or touching/steadying and/or contact guard assistance as patient completes ac tivity. Assistance may be provided throughout the activity or intermittently. 3-Partial/Moderate Assistance-helper does LESS THAN HALF the effort. [place] lifts, holds or supports trunk or limbs, but provides less than half the effort. 2-Substantial/Maximal Assistance-helper does MORE THAN HALF the effort. [place] lifts or holds trunk or limbs and provides more than half the effort. 0-Qeegfbtws-qwxnff does ALL the effort. Patient does none of the effort to complete the activity. Or, the assistance of 2 or more helpers is required for the patient to complete the activity. If activity was not attempted, code reason: 7-Patient Refused. 9-Not Applicable-not attempted and the patient did not perform the activity before the current illness, exacerbation or injury. 10-Not Attempted due to Environmental Limitations-(lack of equipment, weather restraints, etc.). 88-Not Attempted due to Medical Conditions or Safety Concerns. Self Care: Independent Functional Cognition: Independent DME/Equipment: Bath Chair, Shower Drive Self: Yes OT Current Status Subjective Pt reports pain in neck/ear as 8/10. She states the worse pain is when she is trying to swallow/eat. Appearance Pt left sitting in recliner, all needs within reach. Mental Status/Objective Patient Orientation: Person, Place, Situation Attachments: Wade Catheter, IV, Oxygen, Telemetry Current Hand Dominance: Right Upper Extremity Coordination Bilateral shoulder AROM: ~100 degrees, pt reports this is baseline PROM L shoulder: ~120 degrees PROM R shoulder: ~165 degrees Elbow-distally WNL Upper Extremity Strength not tested secondary to c/o shoulder pain, poor obstetric anaesthetist strength ADL-Treatment On/Off Footwear (QC): 3 Toileting Hygiene (QC): 1 (wade catheter) Supine>sit: Min a to elevate torso. Pt moves very slowly with all transfers/mobility. Mild c/o dizziness upon sitting upright. ~1 minute to recover. Sit<>stand: CGA. Pt ambulated short distance, ~5 feet to recliner with use of walker and CGA. Initially pt had difficulty transitioning RLE, but improves with time. Very slow but steady gait. At this time, pt will require at least steading assist for standing functional tasks such as clothing management. Cues for walker management and ensuring chair is behind her before sitting. Mod a to don/doff bilateral socks as pt required assist to initiate over toes. Pt able to lung puller heel in cross over method. Education OT Patient Education: Correct positioning, Modified ADL techniques, Purpose of tx/functional activities, Safety issues, Transfer techniques Teaching Recipient: Patient Teaching Methods: Demonstration, Discussion Response to Teaching: Verbalize Understanding, Return Demonstration OT Skilled Nursing Goals Out Patient Therapist Goals Time Frame: Oct 23, 2021 Eating (QC): 5 Oral Hygiene (QC): 5 Toileting Hygiene (QC): 6 Shower/Bathe Self (QC): 4 Upper Body Dressing (QC): 5 Lower Body Dressing (QC): 5 On/Off Footwear (QC): 5 1=Demonstrate adherence to instructed precautions during ADL tasks. 2=Patient will verbalize/demonstrate understanding of assistive devices/modifications for ADL. 3=Patient will improve strength/tolerance for activity to enable patient to perform ADL's. OT Education/Plan Problem List/Assessment Assessment: Decreased Activ Tolerance, Decreased UE Strength, Impaired Funct Balance, Impaired I ADL's, Impaired Self-Care Skills, Restricted Funct UE ROM Discharge Recommendations Plan/Recommendations: Continue POC Therapy Discharge Recommendati: Post Acute OT (Home health pending progress ) Treatment Plan/Plan of Care Treatment,Training & Education: Yes Patient would benefit from OT for education, treatment and training to promote independence in ADL's, mobility, safety and/or upper extremity function for ADL's. Plan of Care: ADL Retraining, Functional Mobility, Group Exercise/Act as Ind, UE Funct Exercise/Act Treatment Duration: Oct 23, 2021 Frequency: 3 times per week (3-5x/week) Estimated Hrs Per Day: .25 hour per day Agreement: Yes Rehab Potential: Fair Time/GCodes Start Time: 11:00 Stop Time: 11:23 Total Time Billed (hr/min): 23 Billed Treatment Time 1 visit EVM (10 min) FA (13 min) Hermila Cook OT October 09, 2021 11:33
--- NOTE | 2021-10-09 11:34 | Physical Therapy Evaluation ---
PT Evaluation-General Medical Diagnosis Admission Date October 04, 2021 at 20:57 Medical Diagnosis: sepsis, Acute respiratory failure following surgery unable to extubate Onset Date: October 04, 2021 Therapy Diagnosis Therapy Diagnosis: impaired mobility, strength, endurance Height/Weight Height (Feet): 5 Height (Inches): 3.00 Weight (Pounds): 285 Weight (Ounces): 0.0 Precautions Precautions/Isolations: Fall Prevention, Standard Precautions, Pressure Ulcer Referral Physician: Hermelinda Santiago DO Reason for Referral: Evaluation/Treatment, Up in Chair Medical History Additional Medical History Past Medical History Surgeries: Abdominal, Section, Gallbladder, Hysterectomy Asthma, Pneumonia, Chronic Bronchitis Currently Using CPAP: No Currently Using BIPAP: No Angina, Hypertension, Palpitations 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 Sexually Transmitted Disease: No Kidney Infection, Kidney Stones Gastroesophageal Reflux, Diverticulosis, Polyps, Ulcer, Irritable Bowel Degenerate Disk Disease, Arthritis, Chronic Back Pain, Fractures Hypothyroidsim, Diabetes, Non-Insulin dep Breast Did You Recieve Any Treatments: Yes What Type of Treatment Did You: Surgical Intervention Anxiety Blood Disorders: No Adverse Reaction/Blood Tranf: No Social History Home: Single Level Current Living Status: Children (daughter) Entry Into Home: Stairs Without Railing PT Steps Into Home: 2 Prior Prior Level of Function SCALE: Activities may be completed with or without assistive devices. 9-Wfffetiard-wcbsdjb completes the activity by him/herself with no assistance from a helper. 5-Set-up or Clean-up Assistance-helper sets up or cleans up; patient completes activity. [place] assists only prior to or following the activity. 4-Supervision or Touching Assistance-helper provides verbal cues and/or touching/steadying and/or contact guard assistance as patient completes activity. Assistance may be provided throughout the activity or intermittently. 3-Partial/Moderate Assistance-helper does LESS THAN HALF the effort. [place] lifts, holds or supports trunk or limbs, but provides less than half the effort. 2-Substantial/Maximal Assistance-helper does MORE THAN HALF the effort. [place] lifts or holds trunk or limbs and provides more than half the effort. 7-Zbqvqtjpv-jgyjty does ALL the effort. Patient does none of the effort to complete the activity. Or, the assistance of 2 or more helpers is required for the patient to complete the activity. If activity was not attempted, code reason: 7-Patient Refused. 9-Not Applicable-not attempted and the patient did not perform the activity before the current illness, exacerbation or injury. 10-Not Attempted due to Environmental Limitations-(lack of equipment, weather restraints, etc.). 88-Not Attempted due to Medical Conditions or Safety Concerns. Bed Mobility: 6 Transfers (B,C,W/C): 6 Gait: 6 Stairs: 6 Indoor Mobility (Ambulation): Independent Stairs: Independent used SPC PT Evaluation-Current Subjective Patient in bed pre tx, agrees to PT, has unrated pain in her neck, nurse in room and is aware of pain. Pt/Family Goals to be independent at home Objective Patient Orientation: Person, Place, Situation Attachments: Myers Catheter, IV ROM/Strength ROM Lower Extremities limited due to obesity Strength Lower Extremities LLE (hip flexion 3-/5, knee flexion 4/5, knee extension 4/5, dorsiflexion 4/5), RLE (hip flexion 3-/5, knee flexion 4/5, knee extension 4/5, dorsiflexion 4/5) Sensory Vision: Wears Glasses Hearing: Functional Sensation Right Lower Extremit: Intact Sensation Left Lower Extremity: Intact Transfers Roll Left to Right (QC): 3 Lying to Sitting/Side of Bed(Q: 3 Sit to Stand (QC): 4 Chair/Lws-xt-Hssvo Xfer(QC): 4 Gait Does the Patient Walk?: Yes Mode of Locomotion: Walk Anticipated Mode of Locomotion: Walk Distance: 5' Gait Assistive Device: FWW Comments/Gait Description CGA, patient has some difficulty with getting her feet off the floor to take steps but was able to manage for a few feet to the recliner. Balance Sitting Static: Normal Sitting Dynamic: Normal Standing Static: Good Standing Dynamic: Fair Treatment BLE seated exercises x20 (AP, LAQ) Assessment/Needs Patient in recliner post tx with nurse call, phone, tray, all needs met. Patient has impaired mobility, strength, endurance. Needs min assist for supine <-> sit but just CGA for transfers and ambulation. 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 PT Shelter Goals Time Frame: Oct 16, 2021 Roll Left & Right (QC): 6 Sit to Lying (QC): 6 Lying-Sitting on Side/Bed(QC): 6 Sit to Stand (QC): 6 Chair/Izl-ug-Duuro Xfer(QC): 6 Walk 10 feet (QC): 6 Walk 50ft with 2 Turns (QC): 6 PT Plan Problem List Problem List: Activity Tolerance, Functional Strength, Safety, Balance, Gait, Transfer, Bed Mobility, ROM Treatment/Plan Treatment Plan: Continue Plan of Care Treatment Plan: Bed Mobility, Education, Functional Activity Bunny, Functional Strength, Gait, Safety, Therapeutic Exercise, Transfers Treatment Duration: Oct 16, 2021 Frequency: 6 times per week Estimated Hrs Per Day: .25 hour per day Patient and/or Family Agrees t: Yes Safety Risks/Education Patient Education: Gait Training, Transfer Techniques, Correct Positioning, Safety Issues Teaching Recipient: Patient Teaching Methods: Demonstration, Discussion Response to Teaching: Reinforcement Needed Discharge Recommendations Plan Patient will perform bed mobility and transfer training, balance and endurance training, functional strengthening, stair training, gait training, and education, to improve functional mobility and independence at home. Therapy Discharge Recommendati: Home & Family, Post Acute PT Time/GCodes Time In: 1100 Time Out: 1123 Total Billed Treatment Time: 23 Total Billed Treatment 1 visit JAYE 10' FA 13' PINA THOMAS PT October 09, 2021 11:34
--- NOTE | 2021-10-09 11:55 | Tele-ICU Progress Note ---
Subjective Date Seen by a Provider: October 09, 2021 Time Seen by a Provider: 11:54 Subjective/Events-last exam (Tele-ICU Physician , Progress Note ) Available chart/ vitals / labs / Images reviewed Video assessment done using teleICU camera, rest of exam as per RN Discussed with RN , EXAM PER RN Events overnight : Afebrile FiO2 - I/O = neg 1l Drips: Pressors: , hemodynamically stable Hospital course: (10/04) originally for right jaw pain and neck pain CT showed submandibular gland with inflammatory stranding (10/07) 55 y F from OR s/p I & D submandibular and submental space and extraction of indicated teeth (right submandibular gland infection) INTUBATED (cxr shows opacities) 10/08 - EXTUBATED A/P Acute resp failure - post op - 10/08 - EXTUBATED ,RA S/p p I & D submandibular and submental space and extraction of indicated teeth by [facility]FS 10/07 - avx as per Sx / PCP COPD - nebs DM II -ISS , off metformin Anemia - stable Morbid obesity Lines : PICC 10/08 (Central Line Necessity Reviewed) Myers: + OG: Nutrition: npo Analgesia: Anxiety/ delirium VTE Prophylaxis: lovenox Stress Ulcer Prophylaxis: na Plans in collaboration with bedside consultants and IM MDs. Discussed with RN to reach out if any questions or concerns A total of 32 minutes of critical care time was devoted to this patient today, required to treat and/or prevent further deterioration of critical care condition ( as above ) . Sepsis Event Evaluation Height, Weight, BMI Height: 5'3.00" Weight: 285lbs. 0.0oz. 129.582830wk; 53.16 BMI Method:Stated Exam Exam Patient acknowledged, consented, and participated in this virtual visit which was conducted using real time audio/video Vital Signs Date Time Temp Pulse Resp B/P (MAP) Pulse Ox O2 Delivery O2 Flow Rate FiO2 10/09/21 11:00 90 15 174/82 (112) 98 Nasal Cannula 2.00 10/09/21 10:00 95 17 166/78 (107) 98 Nasal Cannula 2.00 10/09/21 09:00 104 25 162/75 (104) 97 Nasal Cannula 2.00 10/09/21 08:00 73 26 137/71 (93) 98 Nasal Cannula 2.00 10/09/21 07:31 36.0 10/09/21 07:06 99 Nasal Cannula 2.00 10/09/21 07:00 73 19 136/76 (96) 98 Nasal Cannula 2.00 10/09/21 07:00 73 10/09/21 06:00 70 17 132/67 (88) 98 Nasal Cannula 2.00 10/09/21 05:00 70 21 132/69 (90) 98 Nasal Cannula 2.00 10/09/21 04:00 71 24 125/59 (81) 97 Nasal Cannula 2.00 10/09/21 03:15 98 Nasal Cannula 2.00 10/09/21 03:15 37.4 71 19 147/75 (99) 98 Nasal Cannula 2.00 10/09/21 02:00 70 27 140/69 (92) 98 Nasal Cannula 2.00 10/09/21 01:00 70 10/09/21 01:00 70 25 142/73 (96) 98 Nasal Cannula 2.00 10/09/21 00:00 70 20 139/74 (95) 98 Nasal Cannula 2.00 10/08/21 23:06 Nasal Cannula 2.00 10/08/21 23:00 36.9 67 15 142/70 (94) 95 Room Air 10/08/21 23:00 95 Room Air 10/08/21 22:24 36.6 10/08/21 22:00 68 24 142/91 (108) 93 Room Air 10/08/21 21:48 94 Room Air 10/08/21 21:00 75 19 157/81 (106) 93 Room Air 10/08/21 20:00 74 20 164/86 (112) 96 Room Air 10/08/21 19:38 36.1 10/08/21 19:15 95 Room Air 10/08/21 19:00 75 14 161/82 (108) 95 Room Air 10/08/21 19:00 79 10/08/21 18:00 73 15 169/80 (109) 96 Room Air 10/08/21 17:00 70 23 166/82 (110) 94 Room Air 10/08/21 16:00 97 Room Air 10/08/21 16:00 68 12 160/81 (107) 94 Room Air 10/08/21 16:00 35.8 10/08/21 15:00 73 21 146/81 (102) 91 Room Air 10/08/21 14:35 Room Air 10/08/21 14:00 56 14 132/67 (88) 97 Mechanical Ventilator 30.00 10/08/21 13:24 30 10/08/21 13:15 36.0 10/08/21 13:00 56 14 128/61 (83) 97 Mechanical Ventilator 30.00 10/08/21 13:00 54 10/08/21 12:54 128/63 10/08/21 12:00 97 Mechanical Ventilator 30 10/08/21 12:00 61 14 144/69 (94) 98 Mechanical Ventilator 30.00 l I & O 10/09/21 07:00 Intake Total 3610 ml Output Total 1250 ml Balance 2360 ml Height & Weight Height: 5'3.00" Weight: 285lbs. 0.0oz. 129.040302zc; 53.16 BMI Method:Stated General Appearance: No Apparent Distress, WD/WN, Chronically ill, Other (Sedated and intubated) HEENT: Other (unable to open mouth adequately, no appreciable oral erythema) Neck: Lymphadenopathy (R), Tender Lateral Respiratory: Lungs Clear, Normal Breath Sounds Cardiovascular: Regular Rate, Rhythm Capillary Refill: Less Than 3 Seconds Gastrointestinal: normal bowel sounds, non tender, soft, no organomegaly Extremity: Normal Inspection, No Pedal Edema Neurologic/Psychiatric: Alert, Oriented x3, Depressed Affect Skin: Normal Color, Warm/Dry Results Lab Laboratory Tests 10/08/21 04:20 10/09/21 03:44 Assessment/Plan Assessment/Plan ` CHARAN PERKINS MD October 09, 2021 11:55
[2021-10-09] MEDS: fentaNYL INJ 100 MCG/2 ML AMP IVP PRN ×3 (12:03→23:03)
[2021-10-09] MEDS: PANTOPRAZOLE 20 MG TABLET (PROTONIX) PO SCH (20:16)
[2021-10-09] MEDS: LOSARTAN 50 MG (COZAAR) TAB PO SCH (20:16)
[2021-10-09] MEDS: PROPRANOLOL 20 MG (INDERAL) TABLET PO SCH (20:16)
[2021-10-10] VITALS (7 sets, daily range): BP systolic 150–195; BP diastolic 74–93
[2021-10-10] MEDS: NS IV 1000 ML 1,000 ML IV SCH (00:47)
[2021-10-10] MEDS: CLINDAMYCIN 600 MG/50 ML IVPB 50 ML IV SCH ×2 (02:33→11:12)
[2021-10-10 04:42] LABS: BASOPHILS # (AUTO) 0.1 10^3/uL (0.0-0.1); BASOPHILS % (AUTO) 0 % (0-10); EOSINOPHILS # (AUTO) 0.2 10^3/uL (0.0-0.3); EOSINOPHILS % (AUTO) 1 % (0-10); HEMATOCRIT 29 % (35-52); HEMOGLOBIN 9.3 g/dL (11.5-16.0); LYMPHOCYTES # (AUTO) 1.7 10^3/uL (1.0-4.0); LYMPHOCYTES % (AUTO) 11 % (12-44); MEAN CORPUSCULAR HEMOGLOBIN 27 pg (25-34); MEAN CORPUSCULAR HGB CONC 32 g/dL (32-36); MEAN CORPUSCULAR VOLUME 84 fL (80-99); MEAN PLATELET VOLUME 10.4 fL (9.0-12.2); MONOCYTES # (AUTO) 1.3 10^3/uL (0.0-1.0); MONOCYTES % (AUTO) 8 % (0-12); NEUTROPHILS # (AUTO) 11.9 10^3/uL (1.8-7.8); NEUTROPHILS % (AUTO) 73 % (42-75); PLATELET COUNT 343 10^3/uL (130-400); WHITE BLOOD COUNT 16.2 10^3/uL (4.3-11.0)
[2021-10-10 04:53] LABS: ALBUMIN 2.5 GM/DL (3.2-4.5)
[2021-10-10 04:55] LABS: CALCIUM 8.4 MG/DL (8.5-10.1)
[2021-10-10 04:56] LABS: TOTAL PROTEIN 5.6 GM/DL (6.4-8.2)
[2021-10-10 04:58] LABS: BILIRUBIN,TOTAL 0.4 MG/DL (0.1-1.0)
[2021-10-10 05:00] LABS: CREATININE SERUM 0.95 MG/DL (0.60-1.30)
[2021-10-10 05:02] LABS: MAGNESIUM 1.8 MG/DL (1.6-2.4)
[2021-10-10] MEDS: inSUlin ASPART (NovoLOG) 1 UNIT/0.01 ML (CHARGE PER UNIT) SQ SCH ×4 (05:02→20:34)
[2021-10-10] MEDS: FERROUS SULF 325 MG (IRON) TAB PO SCH (06:05)
[2021-10-10] MEDS: CATHETER FLUSH 10 ML SYR IVP SCH ×3 (06:23→20:38)
--- NOTE | 2021-10-10 06:39 | Progress Note - Hospitalist ---
Subjective HPI/CC On Admission Date Seen by Provider: October 10, 2021 Time Seen by Provider: 10:00 Christa Sandoval is a 55 year old female with PMH HTN, T2DM, GERD, COPD, morbid obesity, who presented with right sided jaw and neck pain. She reports that she has had a broken tooth on the right side for the past couple years. She was sup posed to have it evaluated for removal but was unable to follow up due to COVID. She reports having worsening tooth pain recently. The pain then moved to her jaw. Yesterday the pain started to move down to her neck. The pain in her tooth improved but has since returned. She has been having pain when swallowing. She started having fevers. She was unable to keep anything down. She denies trouble breathing. Subjective/Events-last exam Patient appears to be fatigued and lethargic today Minimal motivation Checking ABG and chest x-ray sure she is not retaining CO2 PT and OT ordered Needs get out of bed Reviewed microbiology report Dr. Gotti changed antibiotic to Cipro Review of Systems General: Fatigue, Malaise Objective Exam Vital Signs Vital Signs Date Time Temp Pulse Resp B/P (MAP) Pulse Ox O2 Delivery O2 Flow Rate FiO2 10/11/21 04:06 36.8 64 18 177/75 (109) 93 Room Air 10/11/21 03:06 21 10/10/21 21:05 0.00 Capillary Refill : Less Than 3 Seconds General Appearance: No Apparent Distress, WD/WN, Chronically ill, Obese Respiratory: Lungs Clear, Normal Breath Sounds, Decreased Breath Sounds Cardiovascular: Regular Rate, Rhythm Neurologic/Psychiatric: Alert, Oriented x3 Results/Procedures Lab Laboratory Tests 10/11/21 04:55 Patient resulted labs reviewed. Imaging: Reviewed Imaging Report Assessment/Plan Assessment and Plan Assess & Plan/Chief Complaint Sepsis Dental abscess status post I&D by Dr. Gotti postop day #3 Acute respiratory failure following surgery unable to extubate now extubated Postop site edema compromising airway requiring maintained ventilator until extubated Submandibular lymphadenopathy status post tooth extraction HTN GERD COPD Anxiety Continue home meds T2DM Hold metformin Sliding scale insulin Morbid obesity Clinically significant, no acute management needs DVT prophylaxis: Lovenox Plan: eICU appreciated Vent management IV antibiotics 10/09/2021: Antibiotics Dressing changes Incentive spirometer 10/10/2021: Supportive care Antibiotic change Check ABG and chest x-ray for CO2 retention VARGAS,ALBA DO October 10, 2021 06:39
[2021-10-10] MEDS: [UNRECOGNIZED DRUG - REMARK] IH SCH ×2 (08:00→21:05)
[2021-10-10] MEDS: ENOXAPARIN 40 MG/0.4 ML (LOVENOX) SYR SQ SCH ×2 (09:01→20:33)
[2021-10-10] MEDS: LORATADINE (CLARITIN) 10 MG TAB PO SCH (09:01)
[2021-10-10] MEDS: FAMOTIDINE 20 MG (PEPCID) TABLET PO SCH ×2 (09:01→20:37)
[2021-10-10] MEDS: KETOROLAC 15 MG/ML VIAL IVP PRN ×2 (09:01→18:19)
[2021-10-10] MEDS: busPIRone 10 MG (BUSPAR) TAB PO SCH ×2 (09:01→20:33)
--- NOTE | 2021-10-10 11:08 | Physical Therapy Daily Note ---
PT Daily Note-Current Subjective Pt asleep upon arrival but awakes and agrees to PT. Pt does not report any pain. Mental Status Patient Orientation: Person, Place, [place] Attachments: Oxygen, [place] Catheter, IV Transfers SCALE: Activities may be completed with or without assistive devices. 7-Ntziwmiwoy-swmbioe completes the activity by him/herself with no assistance from a helper. 5-Set-up or Clean-up Assistance-helper sets up or cleans up; patient completes activity. [place] assists only prior to or following the activity. 4-Supervision or Touching Assistance-helper provides verbal cues and/or touching/steadying and/or contact guard assistance as patient completes activity. Assistance may be provided throughout the activity or intermittently. 3-Partial/Moderate Assistance-helper does LESS THAN HALF the effort. [place] lifts, holds or supports trunk or limbs, but provides less than half the effort. 2-Substantial/Maximal Assistance-helper does MORE THAN HALF the effort. [place] lifts or holds trunk or limbs and provides more than half the effort. 3-Xoepnzrqr-kfxmuz does ALL the effort. Patient does none of the effort to complete the activity. Or, the assistance of 2 or more helpers is required for the patient to complete the activity. If activity was not attempted, code reason: 7-Patient Refused. 9-Not Applicable-not attempted and the patient did not perform the activity bef ore the current illness, exacerbation or injury. 10-Not Attempted due to Environmental Limitations-(lack of equipment, weather r estraints, etc.). 88-Not Attempted due to Medical Conditions or Safety Concerns. Exercises Supine Ex: Ankle pumps, Quad Set, Heel Slides, Short Arc Quads, Hip abd/add Supine Reps: 15 Treatments Pt cousin brings pt valentino during session but then departs. Call light nearby and all needs met as PT departs. Assessment Current Status: Fair Progress Pt requires AAROM while performing exs as pt is very lethargic. Pt required recurrent cues in order to perform exs and to stay on task. PT Rotating Field Assembler Goals [facility] Goals PT Rotating Field Assembler Goals Time Frame: Oct 16, 2021 Roll Left & Right (QC): 6 Sit to Lying (QC): 6 Lying-Sitting on Side/Bed(QC): 6 Sit to Stand (QC): 6 Chair/Wlx-xd-Sefhh Xfer(QC): 6 Walk 10 feet (QC): 6 Walk 50ft with 2 Turns (QC): 6 PT Plan Problem List Problem List: Activity Tolerance, Functional Strength Treatment/Plan Treatment Plan: Continue Plan of Care Treatment Plan: Bed Mobility, Education, Functional Activity Bunny, Functional Strength, Gait, Safety, Therapeutic Exercise, Transfers Treatment Duration: Oct 16, 2021 Frequency: 6 times per week Estimated Hrs Per Day: .25 hour per day Patient and/or Family Agrees t: Yes Safety Risks/Education Patient Education: Correct Positioning Teaching Recipient: Patient Teaching Methods: Discussion Response to Teaching: Return Demonstration Time/GCodes Time In: 940 Time Out: 950 Total Billed Treatment Time: 10 Total Billed Treatment 1, Ex BOUCHRA MYERS UMBRELLA REPAIRER October 10, 2021 11:08
--- NOTE | 2021-10-10 11:42 | Diagnostic Imaging Report ---
INDICATION: Sepsis COMPARISON: 10/07/2021 TECHNIQUE: Single radiograph of the chest dated 10/10/2021. FINDINGS: Previously noted endotracheal tube and enteric catheter has been removed since the prior examination. Interval placement of a left-sided PICC line with the distal tip overlying the lower aspect of the superior vena cava. No pneumothorax. The cardiac silhouette is within normal limits. Improved aeration of the lungs with improved though mild persisting left greater than right interstitial opacities. No significant pleural effusion. No acute osseous abnormality. IMPRESSION: Interval extubation and removal of enteric catheter. Interval placement of a left-sided PICC line with the distal tip overlying the lower aspect of the superior vena cava without pneumothorax. Improved though mild persisting bilateral interstitial opacities which may relate to infection or edema. Dictated by: Dictated on workstation # [id number]
[2021-10-10 12:16] LABS: ABG BASE EXCESS -5.3 MMOL/L (-2.5-2.5); ABG OXYGEN SATURATION 96 % (94-100); ABG PCO2 27 MMHG (35-45); ABG PH 7.44 (7.37-7.43); ABG PO2 68 MMHG (79-93); ABG TCO2 19.5 MMOL/L (21.0-31.0)
[2021-10-10 12:18] LABS: ALLENS TEST YES-POS; PATIENT TEMP 35; VENTILATOR NO
[2021-10-10 12:19] LABS: INSPIRED O2 RA
[2021-10-10] MEDS: fentaNYL INJ 100 MCG/2 ML AMP IVP PRN (14:45)
[2021-10-10] MEDS: CIPROFLOXACIN IV 400MG/200ML 200 ML IV SCH (20:32)
[2021-10-10] MEDS: PROPRANOLOL 20 MG (INDERAL) TABLET PO SCH (20:33)
[2021-10-10] MEDS: PANTOPRAZOLE 20 MG TABLET (PROTONIX) PO SCH (20:33)
[2021-10-10] MEDS: LOSARTAN 50 MG (COZAAR) TAB PO SCH (20:33)
[2021-10-11] VITALS (9 sets, daily range): BP systolic 140–194; BP diastolic 65–92
[2021-10-11] MEDS: oxyCODONE 20 MG/1 ML ORAL CONC (RoxiCODONE) CHARGE PER 1 ML PO PRN ×2 (02:09→06:24)
[2021-10-11 05:02] LABS: BASOPHILS # (AUTO) 0.1 10^3/uL (0.0-0.1); BASOPHILS % (AUTO) 0 % (0-10); EOSINOPHILS # (AUTO) 0.2 10^3/uL (0.0-0.3); EOSINOPHILS % (AUTO) 2 % (0-10); HEMATOCRIT 28 % (35-52); HEMOGLOBIN 8.9 g/dL (11.5-16.0); LYMPHOCYTES % (AUTO) 13 % (12-44); MEAN CORPUSCULAR HEMOGLOBIN 27 pg (25-34); MEAN CORPUSCULAR HGB CONC 32 g/dL (32-36); MEAN CORPUSCULAR VOLUME 85 fL (80-99); MEAN PLATELET VOLUME 10.3 fL (9.0-12.2); MONOCYTES # (AUTO) 1.4 10^3/uL (0.0-1.0); MONOCYTES % (AUTO) 9 % (0-12); NEUTROPHILS # (AUTO) 10.2 10^3/uL (1.8-7.8); NEUTROPHILS % (AUTO) 66 % (42-75); PLATELET COUNT 323 10^3/uL (130-400); WHITE BLOOD COUNT 15.5 10^3/uL (4.3-11.0)
[2021-10-11 05:14] LABS: ALBUMIN 2.5 GM/DL (3.2-4.5); POTASSIUM 3.9 MMOL/L (3.6-5.0)
[2021-10-11 05:16] LABS: CALCIUM 8.5 MG/DL (8.5-10.1)
[2021-10-11 05:17] LABS: TOTAL PROTEIN 5.7 GM/DL (6.4-8.2)
[2021-10-11 05:18] LABS: BILIRUBIN,TOTAL 0.4 MG/DL (0.1-1.0)
[2021-10-11 05:20] LABS: CREATININE SERUM 0.83 MG/DL (0.60-1.30)
[2021-10-11 05:23] LABS: MAGNESIUM 1.7 MG/DL (1.6-2.4)
[2021-10-11] MEDS: inSUlin ASPART (NovoLOG) 1 UNIT/0.01 ML (CHARGE PER UNIT) SQ SCH ×4 (05:23→20:56)
[2021-10-11] MEDS: FERROUS SULF 325 MG (IRON) TAB PO SCH (05:37)
[2021-10-11] MEDS: CATHETER FLUSH 10 ML SYR IVP SCH ×2 (05:38→12:46)
--- NOTE | 2021-10-11 06:58 | Progress Note - Hospitalist ---
Subjective HPI/CC On Admission Date Seen by Provider: October 11, 2021 Time Seen by Provider: 11:00 Christa Sandoval is a 55 year old female with PMH HTN, T2DM, GERD, COPD, morbid obesity, who presented with right sided jaw and neck pain. She reports that she has had a broken tooth on the right side for the past couple years. She was sup posed to have it evaluated for removal but was unable to follow up due to COVID. She reports having worsening tooth pain recently. The pain then moved to her jaw. Yesterday the pain started to move down to her neck. The pain in her tooth improved but has since returned. She has been having pain when swallowing. She started having fevers. She was unable to keep anything down. She denies trouble breathing. Subjective/Events-last exam Patient doing better Up in chair Walked in halls with a lot of encouragement from nurse Reviewed wound culture Review of Systems General: Fatigue, Malaise Objective Exam Vital Signs Vital Signs Date Time Temp Pulse Resp B/P (MAP) Pulse Ox O2 Delivery O2 Flow Rate FiO2 10/11/21 16:05 68 178/90 (119) 10/11/21 15:46 35.9 18 93 Room Air 10/11/21 08:00 0.00 10/11/21 03:06 21 Capillary Refill : Less Than 3 Seconds General Appearance: No Apparent Distress, WD/WN, Chronically ill, Obese Respiratory: Lungs Clear, Normal Breath Sounds Cardiovascular: Regular Rate, Rhythm Neurologic/Psychiatric: Alert, Oriented x3 Results/Procedures Lab Laboratory Tests 10/11/21 04:55 Patient resulted labs reviewed. Imaging: Reviewed Imaging Report Assessment/Plan Assessment and Plan Assess & Plan/Chief Complaint Sepsis Dental abscess status post I&D by Dr. Gotti postop day #4 Acute respiratory failure following surgery unable to extubate now extubated Postop site edema compromising airway requiring maintained ventilator until extubated Submandibular lymphadenopathy status post tooth extraction HTN GERD COPD Anxiety Continue home meds T2DM Hold metformin Sliding scale insulin Morbid obesity Clinically significant, no acute management needs DVT prophylaxis: Lovenox Plan: eICU appreciated Vent management IV antibiotics 10/09/2021: Antibiotics Dressing changes Incentive spirometer 10/10/2021: Supportive care Antibiotic change Check ABG and chest x-ray for CO2 retention 10/11/21: Monitor closely Cipro abx maintained ALBA VARGAS DO October 11, 2021 06:58
[2021-10-11] MEDS: [UNRECOGNIZED DRUG - REMARK] IH SCH ×2 (07:40→21:52)
[2021-10-11] MEDS: LORATADINE (CLARITIN) 10 MG TAB PO SCH (08:46)
[2021-10-11] MEDS: ENOXAPARIN 40 MG/0.4 ML (LOVENOX) SYR SQ SCH ×2 (08:46→20:46)
[2021-10-11] MEDS: FAMOTIDINE 20 MG (PEPCID) TABLET PO SCH ×2 (08:46→20:45)
[2021-10-11] MEDS: CIPROFLOXACIN IV 400MG/200ML 200 ML IV SCH (08:46)
[2021-10-11] MEDS: busPIRone 10 MG (BUSPAR) TAB PO SCH ×2 (08:46→20:45)
[2021-10-11] MEDS: LACTULOSE SYRUP 10GM/15ML (ENULOSE) 30ML UDC PO SCH ×2 (12:51→20:55)
[2021-10-11] MEDS: SENNA W/DOCUSATE (SENOKOT S) TABLET PO SCH ×2 (12:51→20:56)
[2021-10-11] MEDS: polyethylene glycoL POWDER 17 GM (MIRALAX) PACK PO SCH ×2 (12:51→20:55)
[2021-10-11] MEDS: KETOROLAC 15 MG/ML VIAL IVP PRN (12:52)
[2021-10-11] MEDS: HYDROGEN PEROXIDE 118 ML SOLUTION TP PRN ×2 (12:57→20:59)
[2021-10-11] MEDS: NYSTATIN CREAM (MYCOSTATIN) 30 GM TUBE TP SCH ×2 (12:57→20:58)
[2021-10-11] MEDS: MICONAZOLE 2% POWDER (DESENEX AF) 90 GM TOP SCH (12:57)
[2021-10-11] MEDS: fentaNYL INJ 100 MCG/2 ML AMP IVP PRN ×2 (15:35→18:43)
[2021-10-11] MEDS ORDERED: FUROSEMIDE 40 MG/4 ML INJ (LASIX) ONE (18:41)
[2021-10-11] MEDS ORDERED: amLODIPine 5 MG (NORVASC) TAB ONE (18:41)
[2021-10-11] MEDS ORDERED: FUROSEMIDE 40 MG/4 ML INJ (LASIX) IVP ONE (18:45)
[2021-10-11] MEDS ORDERED: amLODIPine 5 MG (NORVASC) TAB PO ONE (18:45)
[2021-10-11] MEDS ORDERED: NITROGLYCERIN 2% OINT 1 GM UNIT DOSE PACKET TOP PRN (20:30)
[2021-10-11] MEDS ORDERED: hydrALAZINE (APRESOLINE) 25 MG TAB PO PRN (20:30)
[2021-10-11] MEDS: PANTOPRAZOLE 20 MG TABLET (PROTONIX) PO SCH (20:45)
[2021-10-11] MEDS: LOSARTAN 50 MG (COZAAR) TAB PO SCH (20:45)
[2021-10-11] MEDS: PROPRANOLOL 20 MG (INDERAL) TABLET PO SCH (20:45)
[2021-10-12] MEDS: oxyCODONE 20 MG/1 ML ORAL CONC (RoxiCODONE) CHARGE PER 1 ML PO PRN ×3 (00:05→20:29)
[2021-10-12] MEDS: MICONAZOLE 2% POWDER (DESENEX AF) 90 GM TOP SCH ×3 (00:08→20:27)
[2021-10-12] MEDS: CATHETER FLUSH 10 ML SYR IVP SCH ×4 (00:09→20:29)
[2021-10-12 00:11] VITALS: BP 146/81
[2021-10-12 04:11] VITALS: BP 161/78
[2021-10-12 05:36] LABS: BASOPHILS # (AUTO) 0.1 10^3/uL (0.0-0.1); BASOPHILS % (AUTO) 1 % (0-10); EOSINOPHILS # (AUTO) 0.4 10^3/uL (0.0-0.3); EOSINOPHILS % (AUTO) 4 % (0-10); HEMATOCRIT 30 % (35-52); HEMOGLOBIN 9.3 g/dL (11.5-16.0); LYMPHOCYTES # (AUTO) 2.2 10^3/uL (1.0-4.0); LYMPHOCYTES % (AUTO) 19 % (12-44); MEAN CORPUSCULAR HEMOGLOBIN 27 pg (25-34); MEAN CORPUSCULAR HGB CONC 31 g/dL (32-36); MEAN CORPUSCULAR VOLUME 84 fL (80-99); MEAN PLATELET VOLUME 10.2 fL (9.0-12.2); MONOCYTES # (AUTO) 1.3 10^3/uL (0.0-1.0); MONOCYTES % (AUTO) 10 % (0-12); NEUTROPHILS # (AUTO) 6.9 10^3/uL (1.8-7.8); NEUTROPHILS % (AUTO) 57 % (42-75); PLATELET COUNT 359 10^3/uL (130-400)
[2021-10-12 05:43] LABS: ALBUMIN 2.6 GM/DL (3.2-4.5); POTASSIUM 3.9 MMOL/L (3.6-5.0)
[2021-10-12 05:47] LABS: BILIRUBIN,TOTAL 0.5 MG/DL (0.1-1.0)
[2021-10-12 05:49] LABS: CREATININE SERUM 0.85 MG/DL (0.60-1.30)
[2021-10-12 05:51] LABS: MAGNESIUM 1.4 MG/DL (1.6-2.4)
[2021-10-12] MEDS: inSUlin ASPART (NovoLOG) 1 UNIT/0.01 ML (CHARGE PER UNIT) SQ SCH ×4 (06:24→20:29)
[2021-10-12] MEDS: FERROUS SULF 325 MG (IRON) TAB PO SCH (06:32)
--- NOTE | 2021-10-12 07:18 | Progress Note - Hospitalist ---
Subjective HPI/CC On Admission Date Seen by Provider: October 12, 2021 Time Seen by Provider: 10:30 Christa Sandoval is a 55 year old female with PMH HTN, T2DM, GERD, COPD, morbid obesity, who presented with right sided jaw and neck pain. She reports that she has had a broken tooth on the right side for the past couple years. She was sup posed to have it evaluated for removal but was unable to follow up due to COVID. She reports having worsening tooth pain recently. The pain then moved to her jaw. Yesterday the pain started to move down to her neck. The pain in her tooth improved but has since returned. She has been having pain when swallowing. She started having fevers. She was unable to keep anything down. She denies trouble breathing. Subjective/Events-last exam Patient doing better Not really moving around much Sleeping in her chair or bed every time I come in Patient appears to be high risk for failure at home No SW support today so will await tomorrow for DC Review of Systems General: Fatigue, Malaise Objective Exam Vital Signs Vital Signs Date Time Temp Pulse Resp B/P (MAP) Pulse Ox O2 Delivery O2 Flow Rate FiO2 10/12/21 11:50 36.0 69 18 161/72 (101) 91 Room Air 10/12/21 08:01 0.00 10/11/21 03:06 21 Capillary Refill : Less Than 3 Seconds General Appearance: No Apparent Distress, WD/WN, Chronically ill Respiratory: Lungs Clear, Normal Breath Sounds Cardiovascular: Regular Rate, Rhythm Neurologic/Psychiatric: Alert, Oriented x3 Results/Procedures Lab Laboratory Tests 10/12/21 05:27 Patient resulted labs reviewed. Imaging: Reviewed Imaging Report Assessment/Plan Assessment and Plan Assess & Plan/Chief Complaint Sepsis Dental abscess status post I&D by Dr. Gotti postop day #5 Acute respiratory failure following surgery unable to extubate now extubated Postop site edema compromising airway requiring maintained ventilator until extubated Submandibular lymphadenopathy status post tooth extraction HTN GERD COPD Anxiety Continue home meds T2DM Hold metformin Sliding scale insulin Morbid obesity Clinically significant, no acute management needs DVT prophylaxis: Lovenox Plan: eICU appreciated Vent management IV antibiotics 10/09/2021: Antibiotics Dressing changes Incentive spirometer 10/10/2021: Supportive care Antibiotic change Check ABG and chest x-ray for CO2 retention 10/11/21: Monitor closely Cipro abx maintained 10/12/21: Monitor closely PT OT Needs SW help prior to DC High risk for decline at home ALBA VARGAS DO October 12, 2021 07:18
[2021-10-12 07:43] VITALS: BP 192/89
[2021-10-12] MEDS: [UNRECOGNIZED DRUG - REMARK] IH SCH ×2 (08:01→20:27)
--- NOTE | 2021-10-12 08:47 | Physical Therapy Daily Note ---
PT Daily Note-Current Subjective States that she is feeling better. Pain Numeric Pain Scale: 0-No Pain Transfers SCALE: Activities may be completed with or without assistive devices. 3-Rtfxjopvdz-fkayboq completes the activity by him/herself with no assistance from a helper. 5-Set-up or Clean-up Assistance-helper sets up or cleans up; patient completes activity. [place] assists only prior to or following the activity. 4-Supervision or Touching Assistance-helper provides verbal cues and/or touching/steadying and/or contact guard assistance as patient completes activity. Assistance may be provided throughout the activity or intermittently. 3-Partial/Moderate Assistance-helper does LESS THAN HALF the effort. [place] lifts, holds or supports trunk or limbs, but provides less than half the effort. 2-Substantial/Maximal Assistance-helper does MORE THAN HALF the effort. [place] lifts or holds trunk or limbs and provides more than half the effort. 7-Cildfqgem-pzyufn does ALL the effort. Patient does none of the effort to complete the activity. Or, the assistance of 2 or more helpers is required for the patient to complete the activity. If activity was not attempted, code reason: 7-Patient Refused. 9-Not Applicable-not attempted and the patient did not perform the activity before the current illness, exacerbation or injury. 10-Not Attempted due to Environmental Limitations-(lack of equipment, weather restraints, etc.). 88-Not Attempted due to Medical Conditions or Safety Concerns. Sit to Stand (QC): 5 Gait Training Does the Patient Walk?: Yes Distance: 100' Walk 10 feet (QC): 5 Walk 50 ft with 2 Turns(QC): 5 Gait Persons Needed: 1 Gait Assistive Device: FWW Assessment Current Status: Excellent Progress Patient had a slow gait giulia but she is ambulating safely. PT Analytics Intern Goals Analytics Intern Goals PT Analytics Intern Goals Time Frame: Oct 16, 2021 Roll Left & Right (QC): 6 Sit to Lying (QC): 6 Lying-Sitting on Side/Bed(QC): 6 Sit to Stand (QC): 6 Chair/Gkg-xm-Ypats Xfer(QC): 6 Walk 10 feet (QC): 6 Walk 50ft with 2 Turns (QC): 6 PT Plan Treatment/Plan Treatment Plan: Continue Plan of Care Treatment Plan: Bed Mobility, Education, Functional Activity Bunny, Functional Strength, Gait, Safety, Therapeutic Exercise, Transfers Treatment Duration: Oct 16, 2021 Frequency: 6 times per week Estimated Hrs Per Day: .25 hour per day Patient and/or Family Agrees t: Yes Time/GCodes Time In: 824 Time Out: 839 Total Billed Treatment Time: 15 Total Billed Treatment 1, GT x 15' RUSTAM MOYA PT October 12, 2021 08:47
[2021-10-12] MEDS: LORATADINE (CLARITIN) 10 MG TAB PO SCH (09:16)
[2021-10-12] MEDS: amLODIPine 5 MG (NORVASC) TAB PO SCH (09:16)
[2021-10-12] MEDS: busPIRone 10 MG (BUSPAR) TAB PO SCH ×2 (09:16→20:28)
[2021-10-12] MEDS: ENOXAPARIN 40 MG/0.4 ML (LOVENOX) SYR SQ SCH ×2 (09:17→20:28)
[2021-10-12] MEDS: FAMOTIDINE 20 MG (PEPCID) TABLET PO SCH ×2 (09:17→20:28)
[2021-10-12] MEDS: HYDROGEN PEROXIDE 118 ML SOLUTION TP PRN (09:17)
[2021-10-12] MEDS: SENNA W/DOCUSATE (SENOKOT S) TABLET PO SCH ×2 (09:17→20:28)
[2021-10-12] MEDS: polyethylene glycoL POWDER 17 GM (MIRALAX) PACK PO SCH ×2 (09:17→20:28)
[2021-10-12] MEDS: LACTULOSE SYRUP 10GM/15ML (ENULOSE) 30ML UDC PO SCH ×2 (09:18→20:28)
[2021-10-12] MEDS: NYSTATIN CREAM (MYCOSTATIN) 30 GM TUBE TP SCH ×3 (09:18→20:27)
[2021-10-12] MEDS: cloNIDine 0.1 MG (CATAPRES) TAB PO PRN ×2 (09:26→20:33)
[2021-10-12] MEDS: ONDANSETRON 4 MG/2 ML (SDV) Z0FRAN IV PRN (09:26)
[2021-10-12] MEDS: NAPROXEN 250 MG (NAPROSYN) TABLET PO PRN ×2 (09:27→23:20)
[2021-10-12 11:50] VITALS: BP 161/72
--- NOTE | 2021-10-12 12:03 | Occupational Ther Daily Note ---
OT Current Status-Daily Note Subjective Pt seen in room, up in recliner, agreeable to OT. No pain mentioned. Appearance Alert and cooperative but also sleepy at times ADL-Treatment Therapy Code Descriptions/Definitions Functional [place] Measure: 0=Not Assessed/NA 4=Minimal Assistance 1=Total Assistance 5=Supervision or Setup 2=Maximal Assistance 6=Modified [place] 3=Moderate Assistance 7=Complete IndependenceSCALE: Activities may be completed with or without assistive devices. 7-Hvqkihgjym-bpwqhjr completes the activity by him/herself with no assistance from a helper. 5-Set-up or Clean-up Assistance-helper sets up or cleans up; patient completes activity. [place] assists only prior to or following the activity. 4-Supervision or Touching Assistance-helper provides verbal cues and/or touching/steadying and/or contact guard assistance as patient completes activity. Assistance may be provided throughout the activity or intermittently. 3-Partial/Moderate Assistance-helper does LESS THAN HALF the effort. [place] lifts, holds or supports trunk or limbs, but provides less than half the effort. 2-Substantial/Maximal Assistance-helper does MORE THAN HALF the effort. [place] lifts or holds trunk or limbs and provides more than half the effort. 7-Dlohixmwl-rgtqkh does ALL the effort. Patient does none of the effort to complete the activity. Or, the assistance of 2 or more helpers is required for the patient to complete the activity. If activity was not attempted, code reason: 7-Patient Refused. 9-Not Applicable-not attempted and the patient did not perform the activity before the current illness, exacerbation or injury. 10-Not Attempted due to Environmental Limitations-(lack of equipment, weather restraints, etc.). 88-Not Attempted due to Medical Conditions or Safety Concerns. Other Treatment Pt education two different exercises with bilat yellow theraband (gentle resistance), working on shoulders and elbow extension, as needed to assist with transfers, bed mobility and ADLs. Pt return demonstrated exercises with 10 reps each. Exercises written on white board ("play the trombone" and "shoulder stretch".) Pt encouraged to do them on her own. Pt left up in recliner, all needs met. Education OT Patient Education: Exercise program, Progress toward Goal/Update tx plan Teaching Recipient: Patient Teaching Methods: Demonstration, Discussion Response to Teaching: Return Demonstration, Reinforcement Needed OT Aircraft Log Clerk Goals [place] Goals Time Frame: Oct 23, 2021 Eating (QC): 5 Oral Hygiene (QC): 5 Toileting Hygiene (QC): 6 Shower/Bathe Self (QC): 4 Upper Body Dressing (QC): 5 Lower Body Dressing (QC): 5 On/Off Footwear (QC): 5 1=Demonstrate adherence to instructed precautions during ADL tasks. 2=Patient will verbalize/demonstrate understanding of assistive devices/modifications for ADL. 3=Patient will improve strength/tolerance for activity to enable patient to perform ADL's. OT Education/Plan Discharge Recommendations Plan/Recommendations: Continue POC Treatment Plan/Plan of Care Patient would benefit from OT for education, treatment and training to promote independence in ADL's, mobility, safety and/or upper extremity function for ADL's. Plan of Care: ADL Retraining, Functional Mobility, Group Exercise/Act as Ind, UE Funct Exercise/Act Treatment Duration: Oct 23, 2021 Frequency: 3 times per week (3-5x/week) Estimated Hrs Per Day: .25 hour per day Agreement: Yes Rehab Potential: Fair Time/GCodes Start Time: 11:28 Stop Time: 11:45 Total Time Billed (hr/min): 17 Billed Treatment Time visit, 17 minutes exercise JAMES FRANCO OT October 12, 2021 12:03
[2021-10-12 16:00] VITALS: BP 143/62
[2021-10-12] MEDS: APAP 325 MG/10.15 ML LIQ (TYLENOL) UDC PO PRN (16:09)
[2021-10-12 20:00] VITALS: BP 168/74
[2021-10-12] MEDS: PANTOPRAZOLE 20 MG TABLET (PROTONIX) PO SCH (20:28)
[2021-10-12] MEDS: PROPRANOLOL 20 MG (INDERAL) TABLET PO SCH (20:28)
[2021-10-12] MEDS: LOSARTAN 50 MG (COZAAR) TAB PO SCH (20:28)
[2021-10-13 00:16] VITALS: BP 112/71
[2021-10-13 03:55] VITALS: BP 130/77
[2021-10-13 05:09] LABS: BASOPHILS % (AUTO) 0 % (0-10); EOSINOPHILS # (AUTO) 0.3 10^3/uL (0.0-0.3); EOSINOPHILS % (AUTO) 3 % (0-10); HEMATOCRIT 28 % (35-52); HEMOGLOBIN 9.2 g/dL (11.5-16.0); LYMPHOCYTES # (AUTO) 2.3 10^3/uL (1.0-4.0); LYMPHOCYTES % (AUTO) 24 % (12-44); MEAN CORPUSCULAR HEMOGLOBIN 28 pg (25-34); MEAN CORPUSCULAR HGB CONC 33 g/dL (32-36); MEAN CORPUSCULAR VOLUME 85 fL (80-99); MEAN PLATELET VOLUME 10.3 fL (9.0-12.2); MONOCYTES # (AUTO) 1.2 10^3/uL (0.0-1.0); MONOCYTES % (AUTO) 12 % (0-12); NEUTROPHILS # (AUTO) 4.9 10^3/uL (1.8-7.8); NEUTROPHILS % (AUTO) 52 % (42-75); PLATELET COUNT 334 10^3/uL (130-400); WHITE BLOOD COUNT 9.4 10^3/uL (4.3-11.0)
[2021-10-13 05:26] LABS: ALBUMIN 2.5 GM/DL (3.2-4.5); POTASSIUM 3.8 MMOL/L (3.6-5.0)
[2021-10-13 05:27] LABS: CALCIUM 8.8 MG/DL (8.5-10.1)
[2021-10-13 05:28] LABS: TOTAL PROTEIN 5.8 GM/DL (6.4-8.2)
[2021-10-13 05:30] LABS: BILIRUBIN,TOTAL 1.1 MG/DL (0.1-1.0)
[2021-10-13] MEDS: inSUlin ASPART (NovoLOG) 1 UNIT/0.01 ML (CHARGE PER UNIT) SQ SCH (05:31)
[2021-10-13 05:32] LABS: CREATININE SERUM 0.93 MG/DL (0.60-1.30)
[2021-10-13 05:35] LABS: MAGNESIUM 1.6 MG/DL (1.6-2.4)
--- NOTE | 2021-10-13 06:13 | Progress Note - Hospitalist ---
Subjective HPI/CC On Admission Date Seen by Provider: October 13, 2021 Time Seen by Provider: 10:00 Christa Sandoval is a 55 year old female with PMH HTN, T2DM, GERD, COPD, morbid obesity, who presented with right sided jaw and neck pain. She reports that she has had a broken tooth on the right side for the past couple years. She was sup posed to have it evaluated for removal but was unable to follow up due to COVID. She reports having worsening tooth pain recently. The pain then moved to her jaw. Yesterday the pain started to move down to her neck. The pain in her tooth improved but has since returned. She has been having pain when swallowing. She started having fevers. She was unable to keep anything down. She denies trouble breathing. Objective Exam Vital Signs Vital Signs Date Time Temp Pulse Resp B/P (MAP) Pulse Ox O2 Delivery O2 Flow Rate FiO2 10/13/21 10:01 Room Air 10/13/21 07:58 36.3 62 18 143/80 (101) 96 10/12/21 08:01 0.00 10/11/21 03:06 21 Capillary Refill : Less Than 3 Seconds Results/Procedures Lab Laboratory Tests 10/13/21 04:55 Patient resulted labs reviewed. Imaging: Reviewed Imaging Report Assessment/Plan Assessment and Plan Assess & Plan/Chief Complaint Sepsis Dental abscess status post I&D by Dr. Gotti postop day #5 Acute respiratory failure following surgery unable to extubate now extubated Postop site edema compromising airway requiring maintained ventilator until extubated Submandibular lymphadenopathy status post tooth extraction HTN GERD COPD Anxiety Continue home meds T2DM Hold metformin Sliding scale insulin Morbid obesity Clinically significant, no acute management needs DVT prophylaxis: Lovenox Plan: eICU appreciated Vent management IV antibiotics 10/09/2021: Antibiotics Dressing changes Incentive spirometer 10/10/2021: Supportive care Antibiotic change Check ABG and chest x-ray for CO2 retention 10/11/21: Monitor closely Cipro abx maintained 10/12/21: Monitor closely PT OT Needs SW help prior to DC High risk for decline at home ALBA VARGAS DO October 13, 2021 06:13
[2021-10-13] MEDS: FERROUS SULF 325 MG (IRON) TAB PO SCH (06:18)
[2021-10-13] MEDS: CATHETER FLUSH 10 ML SYR IVP SCH (06:18)
[2021-10-13] MEDS: [UNRECOGNIZED DRUG - REMARK] IH SCH (07:25)
--- NOTE | 2021-10-13 07:51 | Physician Query Clarification ---
PQ-Further Specificity Admission/Discharge Admission Date: October 04, 2021 at 20:57 Discharge Date: Dr. Santiago, The medical record reflects the following clinical scenario: History/Risk Factors: Sepsis, submandibular abscess, fractured tooth, MOB Clinical Findings: PH 7.30, P02 259, PC02 41 Treatment: mechanical ventilation Question: Can you further specify whether the acute respiratory failure is a result of or exacerbation of the surgery or not per the clinical indicators above? Please document a response in the Progress Notes or Discharge Summary. 1. Yes, the acute respiratory failure is a result of or exacerbation of the surgery 2. No, the acute respiratory failure is NOT a result of or exacerbation of the surgery 3. Other, with explanation of the clinical findings. 4. Clinically undetermined, no explanation for the clinical findings. PHYSICIAN RESPONSE Can you specify per above: 1 In responding to this query, please exercise your independent professional judgment. The purpose of this communication is to more accurately reflect the complexity of your patients condition. The fact that a question is asked does not imply that any particular answer is desired or expected. Thank you for your timely response to this clarification. Requestors name: Yeison THIS PHYSICIAN QUERY FORM IS A PERMANENT PART OF THE MEDICAL RECORD YEISON BEAVERS October 13, 2021 07:51 ALBA SANTIAGO DO October 13, 2021 10:20
[2021-10-13 07:58] VITALS: BP 143/80
[2021-10-13] MEDS: oxyCODONE 20 MG/1 ML ORAL CONC (RoxiCODONE) CHARGE PER 1 ML PO PRN (08:08)
[2021-10-13] MEDS: ENOXAPARIN 40 MG/0.4 ML (LOVENOX) SYR SQ SCH (09:00)
[2021-10-13] MEDS: busPIRone 10 MG (BUSPAR) TAB PO SCH (09:00)
[2021-10-13] MEDS: SENNA W/DOCUSATE (SENOKOT S) TABLET PO SCH (09:00)
[2021-10-13] MEDS: LACTULOSE SYRUP 10GM/15ML (ENULOSE) 30ML UDC PO SCH (09:00)
[2021-10-13] MEDS: amLODIPine 5 MG (NORVASC) TAB PO SCH (09:00)
[2021-10-13] MEDS: FAMOTIDINE 20 MG (PEPCID) TABLET PO SCH (09:00)
[2021-10-13] MEDS: polyethylene glycoL POWDER 17 GM (MIRALAX) PACK PO SCH (09:00)
[2021-10-13] MEDS: LORATADINE (CLARITIN) 10 MG TAB PO SCH (09:00)
[2021-10-13] MEDS: APAP 325 MG/10.15 ML LIQ (TYLENOL) UDC PO PRN (09:01)
[2021-10-13] MEDS: MICONAZOLE 2% POWDER (DESENEX AF) 90 GM TOP SCH (09:05)
[2021-10-13] MEDS: NYSTATIN CREAM (MYCOSTATIN) 30 GM TUBE TP SCH (09:05)
--- NOTE | 2021-10-13 09:12 | Occupational Ther Daily Note ---
OT Current Status-Daily Note Subjective Pt alert, sitting in recliner. Sister in room. Pt agrees to therapy. No c/o pain at this time. Mental Status/Objective Patient Orientation: Person, Place, Time, Situation Attachments: IV ADL-Treatment Therapy Code Descriptions/Definitions Functional [place] Measure: 0=Not Assessed/NA 4=Minimal Assistance 1=Total Assistance 5=Supervision or Setup 2=Maximal Assistance 6=Modified [place] 3=Moderate Assistance 7=Complete IndependenceSCALE: Activities may be completed with or without assistive devices. 4-Yotaffdmau-qjkkfox completes the activity by him/herself with no assistance from a helper. 5-Set-up or Clean-up Assistance-helper sets up or cleans up; patient completes activity. [place] assists only prior to or following the activity. 4-Supervision or Touching Assistance-helper provides verbal cues and/or touching/steadying and/or contact guard assistance as patient completes activit y. Assistance may be provided throughout the activity or intermittently. 3-Partial/Moderate Assistance-helper does LESS THAN HALF the effort. [place] lifts, holds or supports trunk or limbs, but provides less than half the effort. 2-Substantial/Maximal Assistance-helper does MORE THAN HALF the effort. [place] lifts or holds trunk or limbs and provides more than half the effort. 6-Hlucicwky-wwxosv does ALL the effort. Patient does none of the effort to complete the activity. Or, the assistance of 2 or more helpers is required for the patient to complete the activity. If activity was not attempted, code reason: 7-Patient Refused. 9-Not Applicable-not attempted and the patient did not perform the activity before the current illness, exacerbation or injury. 10-Not Attempted due to Environmental Limitations-(lack of equipment, weather restraints, etc.). 88-Not Attempted due to Medical Conditions or Safety Concerns. Other Treatment Pt able to transfer and use FWW with SBA to complete ambulation around objects and maneuver through doors. Pt had just used toilet with nrsg. Nrsg reported that pt is able to transfer to/from toilet with SBA using FWW and grabbars, pt able to cleanse after urination. After session, pt sitting in recliner with call light/phone in reach. All needs met in room. OT Finance Lead Goals Assisted Goals Time Frame: Oct 23, 2021 Eating (QC): 5 Oral Hygiene (QC): 5 Toileting Hygiene (QC): 6 Shower/Bathe Self (QC): 4 Upper Body Dressing (QC): 5 Lower Body Dressing (QC): 5 On/Off Footwear (QC): 5 1=Demonstrate adherence to instructed precautions during ADL tasks. 2=Patient will verbalize/demonstrate understanding of assistive devices/modifications for ADL. 3=Patient will improve strength/tolerance for activity to enable patient to perform ADL's. OT Education/Plan Problem List/Assessment Assessment: Decreased Activ Tolerance, Decreased UE Strength Discharge Recommendations Plan/Recommendations: Continue POC Treatment Plan/Plan of Care Patient would benefit from OT for education, treatment and training to promote independence in ADL's, mobility, safety and/or upper extremity function for ADL's. Plan of Care: ADL Retraining, Functional Mobility, Group Exercise/Act as Ind, UE Funct Exercise/Act Treatment Duration: Oct 23, 2021 Frequency: 3 times per week (3-5x/week) Estimated Hrs Per Day: .25 hour per day Agreement: Yes Rehab Potential: Fair Time/GCodes Start Time: 08:28 Stop Time: 08:41 Total Time Billed (hr/min): 13 Billed Treatment Time 1 visit-FA 1 (13 min) RE MINER October 13, 2021 09:12
--- NOTE | 2021-10-13 09:26 | Physical Therapy Daily Note ---
PT Daily Note-Current Subjective Patient voices she hopes to go home today. Agrees to therapy. Mental Status Patient Orientation: Normal For Age Transfers SCALE: Activities may be completed with or without assistive devices. 0-Rbhbqokdue-zxzfitb completes the activity by him/herself with no assistance from a helper. 5-Set-up or Clean-up Assistance-helper sets up or cleans up; patient completes activity. Maiden assists only prior to or following the activity. 4-Supervision or Touching Assistance-helper provides verbal cues and/or touching/steadying and/or contact guard assistance as patient completes activity. Assistance may be provided throughout the activity or intermittently. 3-Partial/Moderate Assistance-helper does LESS THAN HALF the effort. Maiden lifts, holds or supports trunk or limbs, but provides less than half the effort. 2-Substantial/Maximal Assistance-helper does MORE THAN HALF the effort. Maiden lifts or holds trunk or limbs and provides more than half the effort. 9-Jhgmlhsjs-vxhnbb does ALL the effort. Patient does none of the effort to complete the activity. Or, the assistance of 2 or more helpers is required for the patient to complete the activity. If activity was not attempted, code reason: 7-Patient Refused. 9-Not Applicable-not attempted and the patient did not perform the activity before the current illness, exacerbation or injury. 10-Not Attempted due to Environmental Limitations-(lack of equipment, weather restraints, etc.). 88-Not Attempted due to Medical Conditions or Safety Concerns. Sit to Stand (QC): 6 Gait Training Distance: 275' Walk 10 feet (QC): 6 Walk 50 ft with 2 Turns(QC): 6 Walk 150 ft (QC): 6 Gait Assistive Device: FWW very slow, steady gait sequence Assessment Patient up in recliner with needs met. Continue to increase activity as tolerated by patient. PT instructed patient to ambulate PRN in hallway. RN notified. PT Blade Aligner Goals Blade Aligner Goals PT Blade Aligner Goals Time Frame: Oct 16, 2021 Roll Left & Right (QC): 6 Sit to Lying (QC): 6 Lying-Sitting on Side/Bed(QC): 6 Sit to Stand (QC): 6 Chair/Uqt-wy-Glnid Xfer(QC): 6 Walk 10 feet (QC): 6 Walk 50ft with 2 Turns (QC): 6 PT Plan Treatment/Plan Treatment Plan: Continue Plan of Care Treatment Plan: Bed Mobility, Education, Functional Activity Bunny, Functional Strength, Gait, Safety, Therapeutic Exercise, Transfers Treatment Duration: Oct 16, 2021 Frequency: 6 times per week Estimated Hrs Per Day: .25 hour per day Patient and/or Family Agrees t: Yes Time/GCodes Time In: 828 Time Out: 841 Total Billed Treatment Time: 13 Total Billed Treatment 1 visit FA 13 min DARLENE LOZA PT October 13, 2021 09:26
[2021-10-13] MEDS ORDERED: fluCOnazole (DIFLUCAN) 100 MG TAB PO SCH (09:45)
[2021-10-13] MEDS ORDERED: OXC5T PO (10:13)
[2021-10-13] MEDS ORDERED: AMLO-250 PO (10:13)
[2021-10-13] MEDS ORDERED: FLUC100T10 PO (10:13)
[2021-10-13] MEDS ORDERED: CIPR-225 PO (10:13)
--- NOTE | 2021-10-13 10:17 | D/C HH Face to Face Order ---
D/C Face to Face Orders Reconcile Patient Problems Problems Reviewed?: Yes Instructions for Patient Via [facility], Patient Instructions/FollowUp: PCP [address] Gotti as scheduled Physician to follow Patient: Deonte Discharge Diet for Home: No Restrictions Patient Problems: Submandibular abscess Patient Data-Allergies,Ht & Wt Patient Allergies: Coded Allergies: Penicillins (Unverified Allergy, Severe, HIVES, THROAT SWELLS, DIFFICULTY BREATHING, 02/10/07) hydrocodone (Verified Allergy, Intermediate, "MAKES HER FEEL VERY BAD", 12/15/15) latex (Verified Allergy, Mild, RASH, 11/07/15) Cephalosporins (Unverified Allergy, Unknown, 12/16/15) celecoxib (Unverified Allergy, Unknown, 11/08/15) empagliflozin (Verified Allergy, Unknown, 02/05/21) tree nut (Unverified Allergy, Unknown, 10/08/21) Uncoded Allergies: TAPE (Adverse Reaction, Mild, RASH, WHELPS ON SKIN WHERE TAPE WAS., 02/10/07) Height (Feet): 5 Height (Inches): 3.00 Weight (Pounds): 285 Weight (Ounces): 0.0 Home Health Need/Face to Face Date of Face to Face: October 13, 2021 Clinical Findings: Generalized weakness and fatigue, Muscle weakness I have seen Pt wope-gj-teyd: Yes Discharged To: Home Diagnosis/Conditions: debility Patient is Homebound due to: Muscle weakness Homebound Status Due to the above stated illness, injury or surgical procedure (medical condition or diagnosis) and associated clinical findings, the patient is homebound because of his/her inability to leave home except with aid of a supportive device and/or person AND leaving the home requires a considerable and taxing effort or is medically contraindicated. Pt req the following assistanc: Walker Home Health Nursing Orders Home Health Services Order: Nursing Services, Jitterbug Operator-Evaluate & Treat, Physical Therapy-Evaluate & Treat Home Health Infusion Therapy Line Start Date: October 08, 2021 Certify Stmt I certify that this patient is under my care and that I, a nurse practitioner or a physician; a assistant terminal manager working with me, had a face to face encounter that - meets the physician face to face encounter requirements with this patient as dated. ALBA VARGAS DO October 13, 2021 10:16
--- NOTE | 2021-10-13 10:17 | Discharge Summary ---
Discharge Summary Hospital Course Was the Problem List Reviewed?: Yes Problems/Dx: (1) Sepsis Status: Acute (2) Abscessed tooth Status: Acute (3) HTN (hypertension) Status: Chronic (4) T2DM (type 2 diabetes mellitus) Status: Chronic (5) COPD (chronic obstructive pulmonary disease) Status: Chronic (6) Morbid obesity Status: Chronic (7) Anxiety Status: Chronic Hospital Course Date of Admission: October 04, 2021 at 20:57 Admission Diagnosis : Family Physician/Provider: Jasvir Clemons MD Date of Discharge: 10/13/21 Discharge Diagnosis: Submandibular abscess, sepsis, respiratory failure, hypertension, leukocytosis, severe debility Hospital Course: Pt had a lengthy hospital course for 10 days after she was admitted for sub mandibular abscess and sepsis. She ultimately had an incision and drainage by Dr. Gotti. She required intubation for 2 days after surgery. IV antibiotics maintained matched up to sensitivity on culture. Pt was deemed stable after PT, OT, and wound care managed. She was ready for discharge. Her sister who is a retired nurse will help her. Labs and Pending Lab Test: Laboratory Tests 10/12/21 11:05: Glucometer 177H 10/12/21 16:51: Glucometer 145H 10/12/21 19:58: Glucometer 136H 10/13/21 04:55: White Blood Count 9.4, Red Blood Count 3.34L, Hemoglobin 9.2L, Hematocrit 28L, Mean Corpuscular Volume 85, Mean Corpuscular Hemoglobin 28, Mean Corpuscular Hemoglobin Concent 33, Red Cell Distribution Width 14.8H, Platelet Count 334, Mean Platelet Volume 10.3, Immature Granulocyte % (Auto) 7, Neutrophils (%) (Auto) 52, Lymphocytes (%) (Auto) 24, Monocytes (%) (Auto) 12, Eosinophils (%) (Auto) 3, Basophils (%) (Auto) 0, Neutrophils # (Auto) 4.9, Lymphocytes # (Auto) 2.3, Monocytes # (Auto) 1.2H, Eosinophils # (Auto) 0.3, Basophils # (Auto) 0.0, Immature Granulocyte # (Auto) 0.7H, Sodium Level 139, Potassium Level 3.8, Chloride Level 104, Carbon Dioxide Level 23, Anion Gap 12, Blood Urea Nitrogen 19H, Creatinine 0.93, Estimat Glomerular Filtration Rate 72, BUN/Creatinine Ratio 20, Glucose Level 128H, Calcium Level 8.8, Corrected Calcium 10.0, Magnesium Level 1.6, Total Bilirubin 1.1H, Aspartate Amino Transf (AST/SGOT) 205H, Alanine Aminotransferase (ALT/SGPT) 137H, Alkaline Phosphatase 242H, Total Protein 5.8L, Albumin 2.5L Microbiology 10/07/21 Gram Stain - Final, Resulted 10/07/21 Anaerobic Culture, Resulted Pending 10/07/21 Surgical Culture - Final, Resulted Strep anginosus Eikenella corrodens See Comments 10/07/21 MRSA Screen - Final, Complete MRSA not isolated 10/04/21 Blood Culture - Final, Complete No growth Home Meds Active Oxyir Tablet (Oxycodone HCl) 5 Mg Tab 5 Mg PO TID Amlodipine Besylate 5 Mg Tablet 5 Mg PO DAILY Cipro (Ciprofloxacin HCl) 500 Mg Tablet 500 Mg PO BID Fluconazole 100 Mg Tablet 100 Mg PO Q48H Reported Meclizine HCl 25 Mg Tablet 25 Mg PO Q8H PRN Iron (Ferrous Sulfate) 325 Mg (65 Mg Iron) Tablet 325 Mg PO DAILY Naproxen Sodium 220 Mg Capsule 220 Mg PO TID PRN Flakita Allergy (Fexofenadine HCl) 180 Mg Tablet 180 Mg PO DAILY Esomeprazole Magnesium 20 Mg Capsule.dr 20 Mg PO HS Metformin HCl ER (Metformin HCl) 500 Mg Tab.er.24 500 Mg PO DAILY Breztri Aerosphere Inhaler (Budesonide/Glycopyr/Formoterol) 160 Mcg-9 Mcg-4.8 Mcg/Actuation Hfa.aer.ad 2 Puff INH BID Buspirone HCl 10 Mg Tablet 10 Mg PO BID Famotidine 20 Mg Tablet 20 Mg PO BID Trulicity (Dulaglutide) 0.75 Mg/0.5 Ml Pen.injctr 0.75 Mg IJ THUR Irbesartan 150 Mg Tablet 150 Mg PO HS Escitalopram Oxalate 10 Mg Tablet 10 Mg PO HS Ventolin Hfa (Albuterol Sulfate) 1 Puff Puff 1 Puff INH Q8H PRN Metformin HCl ER (Metformin HCl) 500 Mg Tab.er.24h 1,000 Mg PO HS TAKES 2 (500MG) TABS Alprazolam 1 Mg Tablet 1 Mg PO BID PRN Propranolol HCl 40 Mg Tablet 40 Mg PO HS Assessment/Pt Instructions PCP in 1 week Discharge Planning: <30 minutes discharge planning Discharge Instructions Discharge Diet: No Restrictions Activity as Tolerated: Yes Discharge Physical Examination Vital Signs Vital Signs Date Time Temp Pulse Resp B/P (MAP) Pulse Ox O2 Delivery O2 Flow Rate FiO2 10/13/21 10:01 Room Air 10/13/21 07:58 36.3 62 18 143/80 (101) 96 10/12/21 08:01 0.00 10/11/21 03:06 21 General Appearance: No Apparent Distress, WD/WN, Chronically ill Respiratory: Lungs Clear, Normal Breath Sounds Cardiovascular: Regular Rate, Rhythm Neurologic/Psychiatric: Alert, Oriented x3, No Motor/Sensory Deficits, Normal Mood/Affect Allergies: Coded Allergies: Penicillins (Unverified Allergy, Severe, HIVES, THROAT SWELLS, DIFFICULTY BREATHING, 02/10/07) hydrocodone (Verified Allergy, Intermediate, "MAKES HER FEEL VERY BAD", 12/15/15) latex (Verified Allergy, Mild, RASH, 11/07/15) Cephalosporins (Unverified Allergy, Unknown, 12/16/15) celecoxib (Unverified Allergy, Unknown, 11/08/15) empagliflozin (Verified Allergy, Unknown, 02/05/21) tree nut (Unverified Allergy, Unknown, 10/08/21) Uncoded Allergies: TAPE (Adverse Reaction, Mild, RASH, WHELPS ON SKIN WHERE TAPE WAS., 02/10/07) Discharge Summary Date of Admission October 04, 2021 at 20:57 Date of Discharge Discharge Date: October 13, 2021 Admission Diagnosis Sepsis Discharge Diagnosis Sepsis Dental abscess status post I&D by Dr. Gotti postop day #5 Acute respiratory failure following surgery unable to extubate now extubated Postop site edema compromising airway requiring maintained ventilator until extubated Submandibular lymphadenopathy status post tooth extraction HTN GERD COPD Anxiety Continue home meds T2DM Hold metformin Sliding scale insulin Morbid obesity Clinically significant, no acute management needs DVT prophylaxis: Lovenox Plan: eICU appreciated Vent management IV antibiotics 10/09/2021: Antibiotics Dressing changes Incentive spirometer 10/10/2021: Supportive care Antibiotic change Check ABG and chest x-ray for CO2 retention 10/11/21: Monitor closely Cipro abx maintained 10/12/21: Monitor closely PT OT Needs SW help prior to DC High risk for decline at home (1) Sepsis Status: Acute (2) Abscessed tooth Status: Acute (3) HTN (hypertension) Status: Chronic (4) T2DM (type 2 diabetes mellitus) Status: Chronic (5) COPD (chronic obstructive pulmonary disease) Status: Chronic (6) Morbid obesity Status: Chronic (7) Anxiety Status: Chronic ALBA VARGAS DO October 13, 2021 10:17
[2021-10-20] MEDS ORDERED: CLIN-144 PO (11:04)
== END 2021-10-13 12:51 | disposition home health service (06) | DRG 871 ==
LOC: EDUNIT# 17:54 → ER 17:55 → 4TH 20:21 → OBSVTOIN 20:57 → ICU 10-07 16:52 → 4TH 10-09 14:09
PROVIDERS: ADMIT Family Medicine; ATTEND Internal Medicine
PROC: 0CDXXZ0 Extraction of Lower Tooth, Single, External Approach (ICD-10-PCS; 2021-10-07)
PROC: 5A1935Z Respiratory Ventilation, Less than 24 Consecutive Hours (ICD-10-PCS; 2021-10-07)
PROC: 0J910ZZ Drainage of Face Subcutaneous Tissue and Fascia, Open Approach (ICD-10-PCS; principal; 2021-10-07 15:42)
DX: A41.9 Sepsis, unspecified organism (principal); J95.821 Acute postprocedural respiratory failure; K12.2 Cellulitis and abscess of mouth; Z68.43 Body mass index [BMI] 50.0-59.9, adult; S02.5XXA Fracture of tooth (traumatic), initial encounter for closed fracture; M27.2 Inflammatory conditions of jaws; E66.01 Morbid (severe) obesity due to excess calories; R59.1 Generalized enlarged lymph nodes; I10 Essential (primary) hypertension; K21.9 Gastro-esophageal reflux disease without esophagitis; K57.90 Diverticulosis of intestine, part unspecified, without perforation or abscess without bleeding; K58.9 Irritable bowel syndrome, unspecified; M19.90 Unspecified osteoarthritis, unspecified site; G89.29 Other chronic pain; M54.9 Dorsalgia, unspecified; E03.9 Hypothyroidism, unspecified; E11.9 Type 2 diabetes mellitus without complications; Z85.3 Personal history of malignant neoplasm of breast; F41.9 Anxiety disorder, unspecified; J44.9 Chronic obstructive pulmonary disease, unspecified; Z79.84 Long term (current) use of oral hypoglycemic drugs; Z79.899 Other long term (current) drug therapy; D64.9 Anemia, unspecified; Z20.822 Contact with and (suspected) exposure to COVID-19
CPT/HCPCS: 36410; 36415; 36569; 36600; 70491; 71045; 76937; 80048; 80053; 82805; 82947; 83605; 83690; 83735; 84100; 84145; 84478; 85007; 85025; 85027; 86141; 87040; 87070; 87075; 87077; 87081; 87185; 87205; 87430; 87636; 94002; 94003; 94640; 94664; 94760; 94799; 96361; 96365; 96375

== ENCOUNTER 2021-10-16 16:46 | Inpatient (IN) | payer OTHER ==
[~2021-10-16] VITALS: Ht 160 cm; Wt 121.1 kg
[~2021-10-16 16:46] MED LIST changes: +AMLO-250 PO; +BUDE10.7 INH; +BUSP10TA95 PO; +CIPR-225 PO; +DULA0.75 IJ; +ESOM20CA37 PO; +FAMO20TA5 PO; +FERR-84 PO; +FEXO180T84 PO; +FLUC100T10 PO; +IRBE150T23 PO; +MECL-149 PO; +METF-478 PO; +NAPR220C61 PO; +OXC5T PO
[2021-10-16] MEDS ORDERED: NS IV 1000 ML 1,000 ML IV STA (17:03)
--- NOTE | 2021-10-16 17:21 | ED EENT ---
History of Present Illness General Chief Complaint: Dental Problems/Pain Stated Complaint: NECK ABSCESS/DIFF SWALLOWING AND EATING/LOW BS Source: patient Exam Limitations: no limitations History of Present Illness Date Seen by Provider: Oct 16, 2021 Time Seen by Provider: 17:16 Initial Comments Patient is a 55-year-old female who presents ED with right-sided facial pain difficulty swallowing, unable to eat . Patient was admitted a week and a half a go for a potential possible submandibular gland infection with surrounding inflammation. She was having troubling open her mouth at that time. She states she was previously having dental pain before the infection of the right sided face. Patient was evaluated by Dr. Gotti oral maxillofacial surgeon and had a tooth extracted and drained abscess. It was believe that this was facial swelling was secondary to a dental infection Patient was discharged from our facility this past Tuesday. Patient states since Tuesday she has had continuous pain on the right side. She noted difficulty eating yesterday but worse today. She states she is only able to open her mouth about the size of a "finger tip". She states she is having knots developed near her incision site on her chin and right lower mandible. She she reports drainage. She denies of any fever, vomiting. She reports a mild cough. Patient is currently on ciprofloxacin. She is concerned as she is not able to swallow and not able to take her medication. She is having difficulty drinking water. She does not feel short of breath and tolerating secretions. Patient also worried about her blood sugar as she has been not able to eat and currently on metformin. Blood sugar was 98 on arrival Allergies and Home Medications Allergies Coded Allergies: Penicillins (Unverified Allergy, Severe, HIVES, THROAT SWELLS, DIFFICULTY BREATHING, 02/10/07) hydrocodone (Verified Allergy, Intermediate, "MAKES HER FEEL VERY BAD", 12/15/15) latex (Verified Allergy, Mild, RASH, 11/07/15) Cephalosporins (Unverified Allergy, Unknown, 12/16/15) celecoxib (Unverified Allergy, Unknown, 11/08/15) empagliflozin (Verified Allergy, Unknown, 02/05/21) tree nut (Unverified Allergy, Unknown, 10/08/21) Uncoded Allergies: TAPE (Adverse Reaction, Mild, RASH, WHELPS ON SKIN WHERE TAPE WAS., 02/10/07) Patient Home Medication List Home Medication List Reviewed: Yes Albuterol Sulfate (Ventolin Hfa) 1 Puff Puff, 1 PUFF INH Q8H PRN for SHORTNESS OF BREATH, (Reported) Entered as Reported by: WALTER VALENTINE on 07/21/20 1505 Last Action: Reviewed Alprazolam (Alprazolam) 1 Mg Tablet, 1 MG PO BID PRN for ANXIETY, (Reported) Entered as Reported by: WALTER VALENTINE on 07/21/20 1505 Last Action: Reviewed Amlodipine Besylate (Amlodipine Besylate) 5 Mg Tablet, 5 MG PO DAILY Prescribed by: ALBA VARGAS on 10/13/21 1013 Last Action: Reviewed Budesonide/Glycopyr/Formoterol (Breztri Aerosphere Inhaler) 160 Mcg-9 Mcg-4.8 Mcg/Actuation Hfa.aer.ad, 2 PUFF INH BID, (Reported) Entered as Reported by: DUSTIN DAVILA on 10/05/211423 Last Action: Reviewed Buspirone HCl (Buspirone HCl) 10 Mg Tablet, 10 MG PO BID, (Reported) Entered as Reported by: DUSTIN DAVILA on 10/05/211423 Last Action: Reviewed Ciprofloxacin HCl (Cipro) 500 Mg Tablet, 500 MG PO BID Prescribed by: ALBA VARGAS on 10/13/21 101 Last Action: Reviewed Dulaglutide (Trulicity) 0.75 Mg/0.5 Ml Pen.injctr, 0.75 MG IJ THUR, (Reported) Entered as Reported by: DUSTIN DAVILA on 10/05/21 142 Last Action: Reviewed Escitalopram Oxalate (Escitalopram Oxalate) 10 Mg Tablet, 10 MG PO HS, (Reported) Entered as Reported by: ERINN CERDA on 02/26/21 160 Last Action: Reviewed Esomeprazole Magnesium (Esomeprazole Magnesium) 20 Mg Capsule.dr, 20 MG PO HS, (Reported) Entered as Reported by: DUSTIN DAVILA on 10/05/211423 Last Action: Reviewed Famotidine (Famotidine) 20 Mg Tablet, 20 MG PO BID, (Reported) Entered as Reported by: DUSTIN DAVILA on 10/05/211423 Last Action: Reviewed Ferrous Sulfate (Iron) 325 Mg (65 Mg Iron) Tablet, 325 MG PO DAILY, (Reported) Entered as Reported by: DUSTIN DAVILA on 10/05/211423 Last Action: Reviewed Fexofenadine HCl (Flakita Allergy) 180 Mg Tablet, 180 MG PO DAILY, (Reported) Entered as Reported by: DUSTIN DAVILA on 10/05/211423 Last Action: Reviewed Fluconazole (Fluconazole) 100 Mg Tablet, 100 MG PO Q48H Prescribed by: ALBA VARGAS on 10/13/21 1013 Last Action: Reviewed Irbesartan (Irbesartan) 150 Mg Tablet, 150 MG PO HS, (Reported) Entered as Reported by: KADEN LAMB on 10/04/212129 Last Action: Reviewed Meclizine HCl (Meclizine HCl) 25 Mg Tablet, 25 MG PO Q8H PRN for VERTIGO, (Reported) Entered as Reported by: DUSTIN DAVILA on 10/05/211423 Last Action: Reviewed Metformin HCl (Metformin HCl ER) 500 Mg Tab.er.24h, 1,000 MG PO HS, (Reported) Entered as Reported by: WALTER VALENTINE on 07/21/20 1505 Last Action: Reviewed Metformin HCl (Metformin HCl ER) 500 Mg Tab.er.24, 500 MG PO DAILY, (Reported) Entered as Reported by: DUSTIN DAVILA on 10/05/211423 Last Action: Reviewed Miconazole (Miconazole) 5 Gm Powder, 5 GM MC DAILY PRN, (Reported) Entered as Reported by: TIFFANY AMADO on 10/17/211747 Last Action: New Order Naproxen Sodium (Naproxen Sodium) 220 Mg Capsule, 220 MG PO TID PRN for PAIN- MILD (1-4), (Reported) Entered as Reported by: DUSTIN DAVILA on 10/05/211423 Last Action: Reviewed Nystatin/Triamcinolone (Nystatin-Triamcinolone Cream) 100,000 Unit/Gram-0.1 % Cr, 15 GM TP DAILY PRN, (Reported) Entered as Reported by: TIFFANY AMADO on 10/17/211747 Last Action: New Order Oxycodone Hcl (Oxyir Tablet) 5 Mg Tab, 5 MG PO TID Prescribed by: ALBA VARGAS on 10/13/21 1014 Last Action: Reviewed Propranolol HCl (Propranolol HCl) 40 Mg Tablet, 40 MG PO HS, (Reported) Entered as Reported by: SILVANO APONTE on 12/15/15 5116 Last Action: Reviewed Review of Systems Review of Systems Constitutional: No chills, No diaphoresis, No malaise, No weakness Eyes: Denies Blurred Vision, Denies Decreased Acuity Ears: Denies Dizziness, Denies Pain Nose: denies clots Mouth: denies clots, denies loose teeth Throat: denies pain, denies swelling; painful swallowing, difficulty with fluids Respiratory: No cough, No dyspnea on exertion Cardiovascular: No chest pain Musculoskeletal: No back pain, No joint pain Skin: change in color; No change in hair/nails Past Qxdjmus-Ugrfgb-Xjwbkv Hx Patient Social History Tobacco Use?: No Use of E-Cig and/or Vaping dev: No Substance use?: No Alcohol Use?: No Pt feels they are or have been: No Immunizations Up To Date Tetanus Booster (TDap): Unknown Influenza Vaccine Up-to-Date: No; Not Current First/Initial COVID19 Vaccinat: NO Second COVID19 Vaccination Cesario: NO Third COVID19 Vaccination Date: NO Seasonal Allergies Seasonal Allergies: Yes Past Medical History Surgery/Hospitalization HX: dm, neck/back pain, htn, gerd Surgeries: Yes (SURGERY ON BOILS, HEMORRHOIDECTOMY, TUMOR REMOVED FROM L KIDNEY) Abdominal, Section, Gallbladder, Hysterectomy Respiratory: Yes ("EXERCISE INDUCED ASTHMA", COVID-01 August 2020) Asthma, Pneumonia, Chronic Bronchitis Currently Using CPAP: No Currently Using BIPAP: No Cardiac: Yes Angina, Hypertension, Palpitations Neurological: No 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 Disorders: No 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 Sexually Transmitted Disease: No Genitourinary: Yes (left renal CA; partial nephroectomy) Kidney Infection, Kidney Stones Gastrointestinal: Yes (Fatty Liver Disease, UMBILICAL HERNIA) Gastroesophageal Reflux, Diverticulosis, Polyps, Ulcer, Irritable Bowel Musculoskeletal: Yes (STENOSIS IN LOWER BACK, OSTEOARTHRITIS, DJD) Degenerate Disk Disease, Arthritis, Chronic Back Pain, Fractures Endocrine: Yes Hypothyroidsim, Diabetes, Non-Insulin dep Cancer: Yes Breast Did You Recieve Any Treatments: Yes What Type of Treatment Did You: Surgical Intervention Psychosocial: Yes (PANIC ATTACKS ) Anxiety Integumentary: No Blood Disorders: No Adverse Reaction/Blood Tranf: No Family Medical History Cardiovascular disease 19 FATHER, Onset:Unknown Completed stroke 19 FATHER, Onset:Unknown Congenital heart disease Dementia 19 FATHER, Onset:Unknown Diabetes mellitus 19 FATHER, Onset:Unknown FH: COPD (chronic obstructive pulmonary disease) 19 MOTHER, Onset:Unknown Hypertension 19 FATHER, Onset:Unknown Myocardial infarction 19 FATHER, Onset:Unknown Thyroid disease 19 MOTHER, Onset:Unknown No Pertinent Family Hx Physical Exam Vital Signs Vital Signs - First Documented 10/16/21 10/17/21 17:07 13:39 Temp 36.4 Pulse 74 Resp 22 B/P (MAP) 188/73 (111) Pulse Ox 96 O2 Delivery Room Air FiO2 21 Height, Weight, BMI Height: 5'3.00" Weight: 285lbs. 0.0oz. [id number]; 54.29 BMI Method:Stated General Appearance: WD/WN, no apparent distress Eyes: bilateral eye normal inspection, bilateral eye PERRL, bilateral eye EOMI Ears: bilateral ear auricle normal, bilateral ear canal normal, bilateral ear TM normal Nose: normal inspection Mouth/Throat: other (Able to open mouth about the size of a finger. Tenderness to palpate right sided face, neck) Neck: other (2 healing surgical sites noted to the submental and right mandible. No active drainage. 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 Nodule noted to the submental overlying the incision site.) Procedures/Interventions Date of ETT Placement: October 07, 2021 Progress/Results/Core Measures Results/Orders Lab Results Laboratory Tests Test 10/16/21 17:20 10/17/21 05:30 10/17/21 10:03 10/17/21 15:36 Range/Units White Blood Count 10.6 9.0 4.3-11.0 10^3/uL Red Blood Count 3.88 3.62 L 3.80-5.11 10^6/uL Hemoglobin 10.4 L 9.7 L 11.5-16.0 g/dL Hematocrit 33 L 31 L 35-52 % Mean Corpuscular Volume 84 85 80-99 fL Mean Corpuscular Hemoglobin 27 27 25-34 pg Mean Corpuscular Hemoglobin Concent 32 32 32-36 g/dL Red Cell Distribution Width 14.7 H 15.0 H 10.0-14.5 % Platelet Count 348 333 130-400 10^3/uL Mean Platelet Volume 9.8 10.4 9.0-12.2 fL Immature Granulocyte % (Auto) 2 2 % Neutrophils (%) (Auto) 60 55 42-75 % Lymphocytes (%) (Auto) 23 25 12-44 % Monocytes (%) (Auto) 12 15 H 0-12 % Eosinophils (%) (Auto) 3 3 0-10 % Basophils (%) (Auto) 0 0 0-10 % Neutrophils # (Auto) 6.3 4.9 1.8-7.8 10^3/uL Lymphocytes # (Auto) 2.4 2.2 1.0-4.0 10^3/uL Monocytes # (Auto) 1.3 H 1.3 H 0.0-1.0 10^3/uL Eosinophils # (Auto) 0.3 0.3 0.0-0.3 10^3/uL Basophils # (Auto) 0.0 0.0 0.0-0.1 10^3/uL Immature Granulocyte # (Auto) 0.2 H 0.2 H 0.0-0.1 10^3/uL Sodium Level 140 140 135-145 MMOL/L Potassium Level 3.8 4.0 3.6-5.0 MMOL/L Chloride Level 99 101 98-107 MMOL/L Carbon Dioxide Level 27 24 21-32 MMOL/L Anion Gap 14 15 H 5-14 MMOL/L Blood Urea Nitrogen 8 8 7-18 MG/DL Creatinine 1.08 0.95 0.60-1.30 MG/DL Estimat Glomerular Filtration Rate 60 70 BUN/Creatinine Ratio 7 8 Glucose Level 98 93 70-105 MG/DL Calcium Level 9.3 8.8 8.5-10.1 MG/DL Corrected Calcium 10.0 8.5-10.1 MG/DL Total Bilirubin 0.5 0.1-1.0 MG/DL Aspartate Amino Transf (AST/SGOT) 25 5-34 U/L Alanine Aminotransferase (ALT/SGPT) 58 H 0-55 U/L Alkaline Phosphatase 162 H 40-136 U/L Total Protein 6.6 6.4-8.2 GM/DL Albumin 3.1 L 3.2-4.5 GM/DL Glucometer 104 99 70-110 MG/DL Test 10/17/21 20:07 10/18/21 05:15 10/18/21 10:30 Range/Units Glucometer 225 H 181 H 292 H 70-110 MG/DL White Blood Count 10.9 4.3-11.0 10^3/uL Red Blood Count 3.93 3.80-5.11 10^6/uL Hemoglobin 10.7 L 11.5-16.0 g/dL Hematocrit 33 L 35-52 % Mean Corpuscular Volume 85 80-99 fL Mean Corpuscular Hemoglobin 27 25-34 pg Mean Corpuscular Hemoglobin Concent 32 32-36 g/dL Red Cell Distribution Width 15.1 H 10.0-14.5 % Platelet Count 339 130-400 10^3/uL Mean Platelet Volume 10.7 9.0-12.2 fL Sodium Level 134 L 135-145 MMOL/L Potassium Level 4.0 3.6-5.0 MMOL/L Chloride Level 100 98-107 MMOL/L Carbon Dioxide Level 20 L 21-32 MMOL/L Anion Gap 14 5-14 MMOL/L Blood Urea Nitrogen 12 7-18 MG/DL Creatinine 1.05 0.60-1.30 MG/DL Estimat Glomerular Filtration Rate 62 BUN/Creatinine Ratio 11 Glucose Level 182 H 70-105 MG/DL Calcium Level 8.9 8.5-10.1 MG/DL My Orders Orders - VERA HAIRSTON PA Cbc With Automated Diff (10/16/21 17:03) Comprehensive Metabolic Panel (10/16/21 17:03) Chest 1 View, Ap/Pa Only (10/16/21 17:03) Ct Neck (Soft Tissue) W (10/16/21 17:03) Ns Iv 1000 Ml (Sodium Chloride 0.9%) (10/16/21 17:03) Ed Iv/Invasive Line Start (10/16/21 17:06) Fentanyl Inj (Sublimaze Injection) (10/16/21 17:34) Iohexol Injection (Omnipaque 350 Mg/Ml 1 (10/16/21 18:00) Ns (Ivpb) (Sodium Chloride 0.9% Ivpb Bag (10/16/21 18:00) Ciprofloxacin Iv 400mg/200ml (Cipro Iv S (10/16/21 20:09) Hydralazine Injection (Apresoline Inject (10/16/21 20:15) Medications Given in ED Vital Signs/I&O 10/18/21 10/18/21 10/18/21 10/18/21 00:08 04:00 07:57 08:00 Temp 36.0 35.7 36.6 Pulse 75 76 77 Resp 17 18 18 B/P (MAP) 124/75 (91) 140/76 (97) 193/79 (117) Pulse Ox 98 94 98 O2 Delivery Room Air Room Air Room Air Room Air 10/18/21 10:11 O2 Delivery Room Air Departure Communication (Admissions) Time/Spoke to Admitting Phy: 20:16 Dr. Solares accepts patient Communication (PCP) Patient was discharged on Tuesday and evaluated by Dr. Gotti oral maxillary facial surgeon for drain abscess to the right sided face. Patient was admitted for sepsis with sialadenitis with facial edema. Dr. Gotti attempted to drain the right side of face thought this was secondary to developing dental infection. She was doing better until she was discharged on Tuesday. Had increasing facial swelling pain not able to take her medication at home. Was discharged with Cipro which is susceptible to the infection that was cultured. She was not tachycardic febrile. Normal white blood count. Only able to open her mouth about the size of a fingertip. Concern for trismus. CT scan of the neck did s how sialadenitis of the right submandibular gland with adjacent 1 cm abscess. This was discussed with Dr. Gotti who states when he did perform the procedure was not able to get much drainage. Discussed potentially changing antibiotics. My concern with patient is she is not able to eat or drink or take any of her medication for blood pressure and antibiotics. She was hypertensive here and was given hydralazine. She is concerned for her blood sugar which was 98 here. Due to the significant pain not able to eat patient will be admitted. Patient was discussed with Dr. Solares who accepts patient at this time. Dr. Gotti states he will see the patient for further evaluation if needed. Impression Primary Impression: Sialadenitis Additional Impression: Dental abscess Disposition: ADMITTED INPATIENT Condition: Stable Admissions Decision to Admit Reason: Admit from ER (General) Decision to Admit/Date: Oct 16, 2021 Time/Decision to Admit Time: 20:16 Departure-Patient Inst. Referrals: JENNIFER SUMNER MD (PCP/Family) Primary Care Physician VERA HAIRSTON Oct 16, 2021 17:21
[2021-10-16] MEDS ORDERED: fentaNYL INJ 100 MCG/2 ML AMP IVP STA (17:34)
[2021-10-16 17:37] LABS: BASOPHILS % (AUTO) 0 % (0-10); EOSINOPHILS # (AUTO) 0.3 10^3/uL (0.0-0.3); EOSINOPHILS % (AUTO) 3 % (0-10); HEMATOCRIT 33 % (35-52); HEMOGLOBIN 10.4 g/dL (11.5-16.0); LYMPHOCYTES # (AUTO) 2.4 10^3/uL (1.0-4.0); LYMPHOCYTES % (AUTO) 23 % (12-44); MEAN CORPUSCULAR HEMOGLOBIN 27 pg (25-34); MEAN CORPUSCULAR HGB CONC 32 g/dL (32-36); MEAN CORPUSCULAR VOLUME 84 fL (80-99); MEAN PLATELET VOLUME 9.8 fL (9.0-12.2); MONOCYTES # (AUTO) 1.3 10^3/uL (0.0-1.0); MONOCYTES % (AUTO) 12 % (0-12); NEUTROPHILS # (AUTO) 6.3 10^3/uL (1.8-7.8); NEUTROPHILS % (AUTO) 60 % (42-75); PLATELET COUNT 348 10^3/uL (130-400); WHITE BLOOD COUNT 10.6 10^3/uL (4.3-11.0)
[2021-10-16 17:46] LABS: ALBUMIN 3.1 GM/DL (3.2-4.5); POTASSIUM 3.8 MMOL/L (3.6-5.0)
[2021-10-16 17:47] LABS: CALCIUM 9.3 MG/DL (8.5-10.1)
[2021-10-16 17:48] LABS: TOTAL PROTEIN 6.6 GM/DL (6.4-8.2)
[2021-10-16 17:50] LABS: BILIRUBIN,TOTAL 0.5 MG/DL (0.1-1.0)
[2021-10-16 17:52] LABS: CREATININE SERUM 1.08 MG/DL (0.60-1.30)
[2021-10-16] MEDS ORDERED: IOHEXOL 350 MG/ML 100 ML (OMNIPAQUE 350) VIAL IV ONE (18:00)
[2021-10-16] MEDS ORDERED: NS 100 ML (IVPB) BAG IV ONE (18:00)
--- NOTE | 2021-10-16 18:22 | Diagnostic Imaging Report ---
PROCEDURE: CT neck soft tissue with contrast. TECHNIQUE: Multiple contiguous axial images were obtained through the neck after the administration of contrast. Auto Exposure Controls were utilized during the CT exam to meet ALARA standards for radiation dose reduction. INDICATION: Dysphagia, status post oral abscess drainage. FINDINGS: There is edema in the right parapharyngeal fat planes with some induration in the right pterygoid muscles. The right masseter muscle is also mildly edematous. The epiglottis is normal. There is no prevertebral soft tissue swelling. The neurovascular bundles are unremarkable. The paranasal sinuses are clear. There is edema around the right salivary gland. There appears to be a small intramuscular submandibular abscess on the right that measures 1 cm in diameter. IMPRESSION: Right pterygoid and masseter myositis. Induration of the right parapharyngeal space. Right submandibular sialadenitis with a small intramuscular abscess adjacent to this medial to the submandibular gland. Dictated by: Dictated on workstation # [id number]
--- NOTE | 2021-10-16 18:31 | Diagnostic Imaging Report ---
INDICATION: Cough. EXAMINATION: Portable chest at 6:03 PM. Heart size and pulmonary vascularity are normal. Lungs are clear. There are no effusions or pneumothoraces. IMPRESSION: No acute abnormalities in the chest. Dictated by: Dictated on workstation # [id number]
[2021-10-16] MEDS ORDERED: CIPROFLOXACIN IV 400MG/200ML 200 ML IV STA (20:09)
[2021-10-16] MEDS ORDERED: hydrALAZINE (APESOLINE) 20 MG/ML VIAL IV ONE (20:15)
[2021-10-16 23:28] VITALS: BP 149/81
[2021-10-16] MEDS ORDERED: ACETAMINOPHEN 500 MG TAB (TYLENOL) PO PRN (23:30)
[2021-10-17] MEDS: morphine INJ 4 MG/ML 1 ML (VIAL/SYRINGE) IV PRN ×2 (01:22→03:43)
[2021-10-17 03:37] VITALS: BP 180/72
[2021-10-17 06:10] LABS: BASOPHILS % (AUTO) 0 % (0-10); EOSINOPHILS # (AUTO) 0.3 10^3/uL (0.0-0.3); EOSINOPHILS % (AUTO) 3 % (0-10); HEMATOCRIT 31 % (35-52); HEMOGLOBIN 9.7 g/dL (11.5-16.0); LYMPHOCYTES # (AUTO) 2.2 10^3/uL (1.0-4.0); LYMPHOCYTES % (AUTO) 25 % (12-44); MEAN CORPUSCULAR HEMOGLOBIN 27 pg (25-34); MEAN CORPUSCULAR HGB CONC 32 g/dL (32-36); MEAN CORPUSCULAR VOLUME 85 fL (80-99); MEAN PLATELET VOLUME 10.4 fL (9.0-12.2); MONOCYTES # (AUTO) 1.3 10^3/uL (0.0-1.0); MONOCYTES % (AUTO) 15 % (0-12); NEUTROPHILS # (AUTO) 4.9 10^3/uL (1.8-7.8); NEUTROPHILS % (AUTO) 55 % (42-75); PLATELET COUNT 333 10^3/uL (130-400)
[2021-10-17] MEDS: CATHETER FLUSH 10 ML SYR IVP SCH ×3 (06:14→22:00)
[2021-10-17 06:29] LABS: CALCIUM 8.8 MG/DL (8.5-10.1)
[2021-10-17 06:33] LABS: CREATININE SERUM 0.95 MG/DL (0.60-1.30)
[2021-10-17] MEDS: CIPROFLOXACIN 400 MG/D5W 200 ML (PRE-MIX) IV SCH ×2 (08:15→21:25)
[2021-10-17] MEDS: NAPROXEN 250 MG (NAPROSYN) TABLET PO SCH ×2 (08:16→21:25)
[2021-10-17] MEDS: hydrALAZINE (APESOLINE) 20 MG/ML VIAL IV PRN ×3 (08:17→16:09)
[2021-10-17 08:32] VITALS: BP 192/83
[2021-10-17] MEDS ORDERED: PROPRANOLOL 20 MG (INDERAL) TABLET PO ONE (09:30)
[2021-10-17] MEDS ORDERED: amLODIPine 10 MG (NORVASC) TAB PO ONE (09:30)
[2021-10-17] MEDS ORDERED: ONDANSETRON 4 MG/2 ML (SDV) Z0FRAN IVP PRN (09:30)
[2021-10-17] MEDS ORDERED: NITROGLYCERIN 2% OINT 1 GM UNIT DOSE PACKET TOP PRN (10:15)
--- NOTE | 2021-10-17 11:30 | Occupational Therapy Eval ---
OT Evaluation-General/PLF Medical Diagnosis Admission Date Oct 16, 2021 at 20:12 Medical Diagnosis: Submandibular infection Onset Date: Oct 16, 2021 Therapy Diagnosis Therapy Diagnosis: Weakness, Decreased ADL skills Height/Weight Height (Feet): 5 Height (Inches): 3.00 Weight (Pounds): 285 Weight (Ounces): 0.0 Precautions Precautions/Isolations: Standard Precautions Weight Bear Status Weight Bearing Restriction: Weight Bearing/Tolerated Referral Physician: Dr. Solares Referral Reason: Activity Tolerance, Self Care, Evaluation/Treatment, Strengthening/ROM Medical History Pertinent Medical History: DM, GERD, HTN Additional Medical History Hemorrhoidectomy, renal CA, DJD, stenosis in lower back Current History Pt. was admitted a week and a half ago for potential submandibular abscess. She had a tooth removed and the abscess drained. Since that time, she has had ongoing pain, and difficulty swallowing. Her abscess continues to drain. Reviewed History: Yes Social History Home: Single Level Current Living Status: Alone Entry Into Home: Stairs With Railing Steps Into Home: 2 Pt. reports that her top step is very difficult. ADL-Prior Level of Function SCALE: Activities may be completed with or without assistive devices. 5-Lmvlwnadxf-afpmhlu completes the activity by him/herself with no assistance from a helper. 5-Set-up or Clean-up Assistance-helper sets up or cleans up; patient completes activity. [place] assists only prior to or following the activity. 4-Supervision or Touching Assistance-helper provides verbal cues and/or touching/steadying and/or contact guard assistance as patient completes activity. Assistance may be provided throughout the activity or intermittently. 3-Partial/Moderate Assistance-helper does LESS THAN HALF the effort. [place] lifts, holds or supports trunk or limbs, but provides less than half the effort. 2-Substantial/Maximal Assistance-helper does MORE THAN HALF the effort. [place] lifts or holds trunk or limbs and provides more than half the effort. 2-Iilydzdwo-ehavbi does ALL the effort. Patient does none of the effort to complete the activity. Or, the assistance of 2 or more helpers is required for the patient to complete the activity. If activity was not attempted, code reason: 7-Patient Refused. 9-Not Applicable-not attempted and the patient did not perform the activity before the current illness, exacerbation or injury. 10-Not Attempted due to Environmental Limitations-(lack of equipment, weather restraints, etc.). 88-Not Attempted due to Medical Conditions or Safety Concerns. ADL PLOF Comments Pt. has had a complicated recent medical history. She reports that she had Covid recently in July, and had it a year prior. 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 She used a cane at school, but a walker at home. She reports that she had to retire this year. She was prior independent with daily skills, but after recent hospitalization, was supposed to get home health. She was going to be starting it soon. Self Care: Independent Functional Cognition: Independent DME/Equipment: Bath Chair, Shower DME/Equipment Comments Pt. reports that her shower chair is very small and does not work for her. Her walk in shower is very small too. She has a walker and cane. 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 Drive Self: Yes OT Current Status Subjective Pt. states that she had just thrown up prior to OT entering when she got up to use the toilet. Her blood pressure had greatly increased as well, and pt. was dizzy. It is much better now, as pt. is lying in bed. Nursing confirms pt's HTN episode and vomiting. Appearance Pt. in bed. She was an emesis bucket at her side, as well as a cool washcloth on her forehead. Mental Status/Objective Patient Orientation: Person, Place, Time, Situation Current Upper Extremity ROM WFL ADL-Treatment Toileting Hygiene (QC): 4 (CGA per pt./nursing.) Other Treatments Pt. has just been up and ambulated to toilet. When doing so, she became dizzy and had to go back to bed. Her blood pressure became high, but has come down now. Pt. reports she vomited, and nursing confirms this. She declines any OOB activity at this time. Pt. reports that while ambulating and toileting, she needed some steadying assist and someone close by. Pt. also reports that she is having difficulty swallowing right now. She originally attempted to swallow some pills, and they came back up. She reports that she has it worked out that she will be getting meds through IV. Nursing came in and nursing, OT, and pt. talked about getting speech therapy possibly involved to determine swallow status at this point. Pt. currently has ice pack on neck. She has open wound that was site of abscess that she reports is still draining. OT offers any assist, ambulation, transfers, or ADLs. Pt. declines and would like to rest for the moment. Education OT Patient Education: Correct positioning (Reports she is comfortable for the moment.), Purpose of tx/functional activities, Rehab process Teaching Recipient: Patient, Family (Sister present) Teaching Methods: Discussion Response to Teaching: Verbalize Understanding OT Stage Technician Goals Stage Technician Goals Time Frame: Oct 31, 2021 Eating (QC): 6 Oral Hygiene (QC): 6 Toileting Hygiene (QC): 6 Shower/Bathe Self (QC): 5 Upper Body Dressing (QC): 6 Lower Body Dressing (QC): 4 On/Off Footwear (QC): 4 Additional Goals: 1-Demonstrate ADL Tasks, 2-Verbalize Understanding, 3- ImproveStrength/Bunny 1=Demonstrate adherence to instructed precautions during ADL tasks. 2=Patient will verbalize/demonstrate understanding of assistive devices/modifications for ADL. 3=Patient will improve strength/tolerance for activity to enable patient to perform ADL's. OT Education/Plan Problem List/Assessment Assessment: Decreased Activ Tolerance, Impaired I ADL's, Impaired Self-Care Skills Discharge Recommendations Plan/Recommendations: Continue POC Therapy Discharge Recommendati: Post Acute OT Comment Equipment needs to be determined. Treatment Plan/Plan of Care Treatment,Training & Education: Yes Patient would benefit from OT for education, treatment and training to promote independence in ADL's, mobility, safety and/or upper extremity function for ADL's. Plan of Care: ADL Retraining, Functional Mobility, UE Funct Exercise/Act Treatment Duration: Oct 31, 2021 Frequency: 5 times per week Estimated Hrs Per Day: .25 hour per day Agreement: Yes Rehab Potential: Fair Pt. would benefit from skilled services 3-5x per week to increase functional independence for return home. Time/GCodes Start Time: 10:25 Stop Time: 10:35 Total Time Billed (hr/min): 10 Billed Treatment Time 1, FUENTES VALADEZ OT Oct 17, 2021 11:30
[2021-10-17 11:33] VITALS: BP 187/77
[2021-10-17] MEDS: 1/2 NS IV SOLUTION 1,000 ML IV SCH ×2 (11:57→23:40)
[2021-10-17] MEDS ORDERED: methylPREDNISolone 40 MG/ML (Solu-MEDROL) VIAL IV ONE (12:15)
[2021-10-17] MEDS ORDERED: LORazepam INJ 2 MG/ML (ATIVAN) VIAL IVP PRN (12:15)
[2021-10-17] MEDS ORDERED: APAP 325 MG/10.15 ML LIQ (TYLENOL) UDC PO PRN (12:15)
--- NOTE | 2021-10-17 12:16 | History & Physical-Hospitalist ---
History of Present Illness HPI/Chief Complaint Patient is a 55-year-old female with past medical history of diabetes, hypertension, recent COVID infection, recent admission due to dental abscess with tooth extraction. She was discharged home on October 13 and in that time has been slowly worsening. She states she has been unable to keep anything down. She vomited this morning as well when her blood pressure medicines were attempted. She believes her pain and swelling have worsened somewhat as well. She denies any shortness of breath or chest pain. She denies any fever. She is worried about her blood sugars as she has not been able to take her normal diabetes medications.The ER discussed her case with Dr. Gotti and repeated imaging which revealed persistent 1 cm abscess. Decision was made to admit due to inability to take oral antibiotics at home. Source: patient Date Seen 10/17/21 Time Seen by a Provider: 09:45 Attending Physician Jasvir Clemons MD PCP Admitting Physician: Lacey Lee MD Attending Physician: Lacey Lee MD Referring Physician Date of Admission Oct 16, 2021 at 20:12 Home Medications & Allergies Home Medications Reviewed patient Home Medication Reconciliation performed by pharmacy medication reconciliations electroencephalograph technician and/or nursing. Patients Allergies have been reviewed. Allergies Allergies Coded Allergies Penicillins (Unverified Allergy, Severe, HIVES, THROAT SWELLS, DIFFICULTY BREATHING, 02/10/07) hydrocodone (Verified Allergy, Intermediate, "MAKES HER FEEL VERY BAD", 12/15/15) latex (Verified Allergy, Mild, RASH, 11/07/15) Cephalosporins (Unverified Allergy, Unknown, 12/16/15) celecoxib (Unverified Allergy, Unknown, 11/08/15) empagliflozin (Verified Allergy, Unknown, 02/05/21) tree nut (Unverified Allergy, Unknown, 10/08/21) Uncoded Allergies TAPE ( Adverse Reaction, Mild, RASH, WHELPS ON SKIN WHERE TAPE WAS., 02/10/07) Past Hkyccly-Grjmxz-Cgaaen Hx Patient Social History Marrital Status: single Employed/Student: retired Tobacco Use?: No Use of E-Cig and/or Vaping dev: No Substance use?: No Alcohol Use?: No Pt feels they are or have been: No Immunizations Up To Date First/Initial COVID19 Vaccinat: NO Second COVID19 Vaccination Cesario: NO Tetanus Booster (TDap): Unknown Date of Pneumonia Vaccine: Jun 27, 2013 Seasonal Allergies Seasonal Allergies: Yes Current Status Advance Directives: Yes Advance Directive Location: Home Communicates: Verbally Primary Language: Tanzanian Preferred Spoken Language: Tanzanian Is interpretation needed?: No Implanted or Applied Medical D: CPAP Past Medical History Surgeries: Abdominal, Section, Gallbladder, Hysterectomy Asthma, Pneumonia, Chronic Bronchitis Currently Using CPAP: No Currently Using BIPAP: No Angina, Hypertension, Palpitations 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 Sexually Transmitted Disease: No Kidney Infection, Kidney Stones Gastroesophageal Reflux, Diverticulosis, Polyps, Ulcer, Irritable Bowel Degenerate Disk Disease, Arthritis, Chronic Back Pain, Fractures Hypothyroidsim, Diabetes, Non-Insulin dep Breast Did You Recieve Any Treatments: Yes What Type of Treatment Did You: Surgical Intervention Anxiety Blood Disorders: No Adverse Reaction/Blood Tranf: No Family Medical History Cardiovascular disease 19 FATHER, Onset:Unknown Completed stroke 19 FATHER, Onset:Unknown Congenital heart disease Dementia 19 FATHER, Onset:Unknown Diabetes mellitus 19 FATHER, Onset:Unknown FH: COPD (chronic obstructive pulmonary disease) 19 MOTHER, Onset:Unknown Hypertension 19 FATHER, Onset:Unknown Myocardial infarction 19 FATHER, Onset:Unknown Thyroid disease 19 MOTHER, Onset:Unknown No Pertinent Family Hx Review of Systems Constitutional: No chills, No fever; malaise, weakness EENTM: see HPI Respiratory: cough; No short of breath Cardiovascular: No chest pain, No edema, No palpitations Gastrointestinal: loss of appetite, nausea, vomiting Genitourinary: no symptoms reported Musculoskeletal: muscle weakness Skin: no symptoms reported Psychiatric/Neurological: No Symptoms Reported Physical Exam Physical Exam Vital Signs Vital Signs - First Documented 10/16/21 10/17/21 17:07 13:39 Temp 36.4 Pulse 74 Resp 22 B/P (MAP) 188/73 (111) Pulse Ox 96 O2 Delivery Room Air FiO2 21 Capillary Refill : Less Than 3 Seconds Height, Weight, BMI Height: 5'3.00" Weight: 285lbs. 0.0oz. 129.117182qs; 47.30 BMI Method:Stated General Appearance: No Apparent Distress, Chronically ill, Obese HEENT: PERRL/EOMI, Moist Mucous Membranes; No Scleral Icterus (L), No Scleral Icterus (R) Neck: Other (swelling and edema to mostly right sided of neck and jaw, protecting airway, clearing secretions) Respiratory: Lungs Clear, No Accessory Muscle Use, No Respiratory Distress Cardiovascular: Regular Rate, Rhythm, No JVD, No Murmur Gastrointestinal: Normal Bowel Sounds, Non Tender, Soft Extremity: Normal Capillary Refill, No Calf Tenderness, No Pedal Edema Neurologic/Psychiatric: Alert, Oriented x3, Normal Mood/Affect Skin: Normal Color, Warm/Dry Results Results/Procedures Labs Laboratory Tests 10/16/21 17:20 10/17/21 05:30 10/18/21 05:15 Patient resulted labs reviewed. Imaging: Reviewed Imaging Report Imaging [facility], [place] NAME: JESSICA LONGO [facility] REC#: [id number] PT STATUS: REG ER : 1965 PHYSICIAN: VERA HAIRSTON ADMIT DATE: 10/16/21/ER Signed Date of Exam:10/16/21 CT NECK (SOFT TISSUE) W PROCEDURE: CT neck soft tissue with contrast. TECHNIQUE: Multiple contiguous axial images were obtained through the neck after the administration of contrast. Auto Exposure Controls were utilized during the CT exam to meet ALARA standards for radiation dose reduction. INDICATION: Dysphagia, status post oral abscess drainage. FINDINGS: There is edema in the right parapharyngeal fat planes with some induration in the right pterygoid muscles. The right masseter muscle is also mildly edematous. The epiglottis is normal. There is no prevertebral soft tissue swelling. The neurovascular bundles are unremarkable. The paranasal sinuses are clear. There is edema around the right salivary gland. There appears to be a small intramuscular submandibular abscess on the right that measures 1 cm in diameter. IMPRESSION: Right pterygoid and masseter myositis. Induration of the right parapharyngeal space. Right submandibular sialadenitis with a small intramuscular abscess adjacent to this medial to the submandibular gland. Dictated by: Dictated on workstation # [id number] Dict: 10/16/211812 Trans: 10/16/211826 [facility] [id number] Interpreted by: STEPH BOLANOS MD Electronically signed by: STEPH BOLANOS MD 10/16/211826 Assessment/Plan Admission Diagnosis Right submandibular sialadenitis with abscess Admission Status: Inpatient Order (span 2 midnights) Reason for Inpatient Admission: see below Assessment and Plan Right submandibular sialadenitis with abscess Admitted for IV abx as unable to tolerate at home Continue IVF Switch meds to liquid or IV as able Add steroids Discussed with Dr Gotti who will see her today HTN BP very elevated IV hydralazine added and nitro paste as is having difficulty with PO meds Will trying crushing home meds to facilitate ability to use them GERD COPD Anxiety Continue home meds as able Ativan IV ordered to replace home Xanax MAT protocol T2DM Hold metformin Sliding scale insulin Morbid obesity Weakness Clinically significant, no acute management needs PT/OT DVT prophylaxis: Lovenox after seen by OMFS to evaluate for possible intervention Diagnosis/Problems Diagnosis/Problems (1) Submandibular gland infection Status: Acute (2) Sialadenitis Status: Acute (3) Facial abscess Status: Acute (4) T2DM (type 2 diabetes mellitus) Status: Chronic (5) Abscessed tooth Status: Acute (6) HTN (hypertension) Status: Chronic (7) Anxiety Status: Chronic (8) Morbid obesity Status: Chronic (9) COPD (chronic obstructive pulmonary disease) Status: Chronic (10) Dysphagia LACEY LEE MD Oct 17, 2021 12:16
--- NOTE | 2021-10-17 12:35 | Physical Therapy Progress Note ---
Therapy Progress Note Pt was up with nursing this morning and her BP went extremely high, and now pt is not feeling well. She is supine in bed with cold rag on her forehead and ice pack on her chest. RN present placing IV, states to hold PT evaluation at this time. Will follow up on Tuesday to initiate PT evaluation ALEIDA MALAVE PT Oct 17, 2021 12:35
[2021-10-17] MEDS: KETOROLAC 30 MG/ML VIAL IVP PRN (12:58)
[2021-10-17 13:39] VITALS: BP 187/77
[2021-10-17] MEDS ORDERED: RT-ALBUTEROL SULF 2.5 MG/3 ML PRE-MIX VIAL INH PRN (13:45)
[2021-10-17] MEDS ORDERED: PROPRANOLOL 20 MG (INDERAL) TABLET PO SCH (14:00)
[2021-10-17 15:28] VITALS: BP 180/77
[2021-10-17] MEDS: inSUlin ASPART (NovoLOG) 1 UNIT/0.01 ML (CHARGE PER UNIT) SC SCH ×2 (16:29→21:26)
[2021-10-17] MEDS ORDERED: NSTR15C TP (17:48)
[2021-10-17] MEDS ORDERED: MICO5POW6 MC (17:48)
[2021-10-17] MEDS: methylPREDNISolone 40 MG/ML (Solu-MEDROL) VIAL IV SCH ×2 (18:16→23:40)
[2021-10-17 20:23] VITALS: BP 166/75
[2021-10-17] MEDS: PROPRANOLOL 20 MG (INDERAL) TABLET PO SCH (21:25)
[2021-10-18] VITALS (7 sets, daily range): BP systolic 124–193; BP diastolic 63–79
[2021-10-18 06:01] LABS: HEMATOCRIT 33 % (35-52); HEMOGLOBIN 10.7 g/dL (11.5-16.0); MEAN CORPUSCULAR HEMOGLOBIN 27 pg (25-34); MEAN CORPUSCULAR HGB CONC 32 g/dL (32-36); MEAN CORPUSCULAR VOLUME 85 fL (80-99); MEAN PLATELET VOLUME 10.7 fL (9.0-12.2); PLATELET COUNT 339 10^3/uL (130-400); WHITE BLOOD COUNT 10.9 10^3/uL (4.3-11.0)
[2021-10-18] MEDS: PROPRANOLOL 20 MG (INDERAL) TABLET PO SCH ×3 (06:10→20:39)
[2021-10-18] MEDS: inSUlin ASPART (NovoLOG) 1 UNIT/0.01 ML (CHARGE PER UNIT) SC SCH ×4 (06:10→20:39)
[2021-10-18] MEDS: CATHETER FLUSH 10 ML SYR IVP SCH ×3 (06:11→21:16)
[2021-10-18] MEDS: methylPREDNISolone 40 MG/ML (Solu-MEDROL) VIAL IV SCH ×4 (06:11→23:36)
[2021-10-18 06:12] LABS: CALCIUM 8.9 MG/DL (8.5-10.1)
[2021-10-18 06:16] LABS: CREATININE SERUM 1.05 MG/DL (0.60-1.30)
[2021-10-18] MEDS: NAPROXEN 250 MG (NAPROSYN) TABLET PO SCH ×2 (08:36→20:39)
[2021-10-18] MEDS: CIPROFLOXACIN 400 MG/D5W 200 ML (PRE-MIX) IV SCH ×2 (08:36→20:39)
[2021-10-18] MEDS: amLODIPine 5 MG (NORVASC) TAB PO SCH (08:36)
[2021-10-18] MEDS: 1/2 NS IV SOLUTION 1,000 ML IV SCH (08:36)
[2021-10-18] MEDS ORDERED: PROPRANOLOL ER 60 MG CAP (INDERAL LA) PO SCH (09:00)
[2021-10-18] MEDS ORDERED: PATIENT MAY USE OWN MED,SINGLE MED PO SCH (11:30)
[2021-10-18] MEDS ORDERED: FAMOTIDINE 20MG/2ML IV (PEPCID) IVP ONE (11:30)
--- NOTE | 2021-10-18 11:35 | Progress Note - Hospitalist ---
Subjective HPI/CC On Admission Date Seen by Provider: Oct 18, 2021 Patient is a 55-year-old female with past medical history of diabetes, hypertension, recent COVID infection, recent admission due to dental abscess with tooth extraction. She was discharged home on October 13 and in that time has been slowly worsening. She states she has been unable to keep anything down. She vomited this morning as well when her blood pressure medicines were a ttempted. She believes her pain and swelling have worsened somewhat as well. She denies any shortness of breath or chest pain. She denies any fever. She is worried about her blood sugars as she has not been able to take her normal diabetes medications.The ER discussed her case with Dr. Gotti and repeated imaging which revealed persistent 1 cm abscess. Decision was made to admit due to inability to take oral antibiotics at home. Subjective/Events-last exam Patient reports feeling much better today. No complaints. Would like to resume her home inhaler and would like her home Pepcid switched to IV. Objective Exam Vital Signs Vital Signs Date Time Temp Pulse Resp B/P (MAP) Pulse Ox O2 Delivery O2 Flow Rate FiO2 10/18/21 10:11 Room Air 10/18/21 07:57 36.6 77 18 193/79 (117) 98 10/17/21 13:39 21 Capillary Refill : Less Than 3 Seconds General Appearance: No Apparent Distress, Chronically ill, Obese HEENT: Other (facial edema improving, no erythema) Respiratory: Lungs Clear, No Respiratory Distress Cardiovascular: Regular Rate, Rhythm, No Murmur Neurologic/Psychiatric: Alert, Oriented x3 Results/Procedures Lab Laboratory Tests 10/18/21 05:15 Patient resulted labs reviewed. Imaging: Reviewed Imaging Report Assessment/Plan Assessment and Plan Assess & Plan/Chief Complaint Right submandibular sialadenitis with abscess Admitted for IV abx as unable to tolerate at home Continue IVF, decrease rate Continue steroids s/p repeat I&D by Dr Gotti- culture sent HTN BP very elevated at times IV hydralazine and nitro paste prn as is having difficulty with PO meds Crush home meds GERD COPD Anxiety Continue home meds as able Ativan IV ordered to replace home Xanax MAT protocol T2DM Hold metformin Sliding scale insulin High BS due to steroids Morbid obesity Weakness Clinically significant, no acute management needs PT/OT DVT prophylaxis: Lovenox Diagnosis/Problems Diagnosis/Problems (1) Submandibular gland infection Status: Acute (2) Sialadenitis Status: Acute (3) Facial abscess Status: Acute (4) T2DM (type 2 diabetes mellitus) Status: Chronic (5) Abscessed tooth Status: Acute (6) HTN (hypertension) Status: Chronic (7) Anxiety Status: Chronic (8) Morbid obesity Status: Chronic (9) COPD (chronic obstructive pulmonary disease) Status: Chronic (10) Dysphagia LACEY LEE MD Oct 18, 2021 11:35
[2021-10-18] MEDS: ENOXAPARIN 40 MG/0.4 ML (LOVENOX) SYR SQ SCH ×2 (12:14→23:36)
[2021-10-18] MEDS: LACTOBACILLUS ACIDOPHILUS (PROBIOTIC) CAPSULE PO SCH ×2 (12:14→17:27)
[2021-10-18] MEDS: KETOROLAC 30 MG/ML VIAL IVP PRN (14:03)
[2021-10-18] MEDS: NON-FORM (Breztri Aerosphere Inhaler) IH SCH (19:29)
[2021-10-19 04:13] VITALS: BP 161/83
[2021-10-19] MEDS: 1/2 NS IV SOLUTION 1,000 ML IV SCH ×2 (04:18→17:56)
[2021-10-19 05:53] LABS: HEMATOCRIT 32 % (35-52); HEMOGLOBIN 10.4 g/dL (11.5-16.0); MEAN CORPUSCULAR HEMOGLOBIN 28 pg (25-34); MEAN CORPUSCULAR HGB CONC 33 g/dL (32-36); MEAN CORPUSCULAR VOLUME 85 fL (80-99); MEAN PLATELET VOLUME 10.9 fL (9.0-12.2); PLATELET COUNT 353 10^3/uL (130-400); WHITE BLOOD COUNT 17.6 10^3/uL (4.3-11.0)
[2021-10-19 06:09] LABS: POTASSIUM 3.9 MMOL/L (3.6-5.0)
[2021-10-19 06:10] LABS: CALCIUM 8.8 MG/DL (8.5-10.1)
[2021-10-19 06:14] LABS: CREATININE SERUM 1.16 MG/DL (0.60-1.30)
[2021-10-19] MEDS: PROPRANOLOL 20 MG (INDERAL) TABLET PO SCH ×3 (06:46→23:05)
[2021-10-19] MEDS: inSUlin ASPART (NovoLOG) 1 UNIT/0.01 ML (CHARGE PER UNIT) SC SCH ×4 (06:46→20:28)
[2021-10-19] MEDS: CATHETER FLUSH 10 ML SYR IVP SCH ×3 (06:47→23:06)
[2021-10-19] MEDS: methylPREDNISolone 40 MG/ML (Solu-MEDROL) VIAL IV SCH ×4 (06:47→23:05)
[2021-10-19] MEDS: NON-FORM (Breztri Aerosphere Inhaler) IH SCH ×2 (07:38→20:19)
[2021-10-19 08:41] VITALS: BP 171/73
[2021-10-19] MEDS: LACTOBACILLUS ACIDOPHILUS (PROBIOTIC) CAPSULE PO SCH ×3 (09:12→17:51)
[2021-10-19] MEDS: FAMOTIDINE 20MG/2ML IV (PEPCID) IVP SCH (09:13)
[2021-10-19] MEDS: amLODIPine 5 MG (NORVASC) TAB PO SCH (09:13)
[2021-10-19] MEDS: NAPROXEN 250 MG (NAPROSYN) TABLET PO SCH ×2 (09:13→20:27)
[2021-10-19] MEDS: CIPROFLOXACIN 400 MG/D5W 200 ML (PRE-MIX) IV SCH ×2 (09:19→20:28)
--- NOTE | 2021-10-19 10:02 | Physical Therapy Progress Note ---
Therapy Progress Note Patient up independently in room and declined PT intervention at this time. PT educated patient on importance of increasing activity to improve functional endurance. Patient voices understanding. RN notified of patient declining PT intervention. 1 ref DARLENE LOZA PT Oct 19, 2021 10:02
[2021-10-19 12:14] VITALS: BP 151/75
[2021-10-19] MEDS: ENOXAPARIN 40 MG/0.4 ML (LOVENOX) SYR SQ SCH ×2 (12:26→23:05)
--- NOTE | 2021-10-19 12:50 | Occupational Ther Daily Note ---
OT Current Status-Daily Note Subjective Pt is alert, sitting in recliner. Pt agrees to therapy. No c/o pain. Mental Status/Objective Patient Orientation: Person, Place, Time, Situation Attachments: IV ADL-Treatment Pt agrees to shower. After IV and ointment site covered, pt able to ambulate into bathroom without AD independently. Pt able to toilet and toilet transfer independently. Pt then transferred into shower and complete washing/rinsing while standing in shower using grabbars and hand held shower independently. Pt became dizzy at end of shower and assist needed to dry. Recommendation to pt to sit for shower to decrease fall risk and dizziness. Pt declined to complete oral care at this time stating she would do it later because she was too dizzy. Pt ambulated to recliner and donned socks by self after socks were given. Will bring pt B UE HEP and energy conservation technique HEP during therapy session tomorrow. After session, pt sitting in recliner with call light/phone in reach. Pt states that she is not dizzy anymore. All needs met. Therapy Code Descriptions/Definitions Functional [place] Measure: 0=Not Assessed/NA 4=Minimal Assistance 1=Total Assistance 5=Supervision or Setup 2=Maximal Assistance 6=Modified [place] 3=Moderate Assistance 7=Complete IndependenceSCALE: Activities may be completed with or without assistive devices. 5-Afwxpzpjpl-pgbzcpq completes the activity by him/herself with no assistance from a helper. 5-Set-up or Clean-up Assistance-helper sets up or cleans up; patient completes activity. [place] assists only prior to or following the activity. 4-Supervision or Touching Assistance-helper provides verbal cues and/or touching/steadying and/or contact guard assistance as patient completes activity. Assistance may be provided throughout the activity or intermittently. 3-Partial/Moderate Assistance-helper does LESS THAN HALF the effort. [place] lifts, holds or supports trunk or limbs, but provides less than half the effort. 2-Substantial/Maximal Assistance-helper does MORE THAN HALF the effort. [place] lifts or holds trunk or limbs and provides more than half the effort. 8-Ontycpuay-sroofz does ALL the effort. Patient does none of the effort to complete the activity. Or, the assistance of 2 or more helpers is required for the patient to complete the activity. If activity was not attempted, code reason: 7-Patient Refused. 9-Not Applicable-not attempted and the patient did not perform the activity before the current illness, exacerbation or injury. 10-Not Attempted due to Environmental Limitations-(lack of equipment, weather restraints, etc.). 88-Not Attempted due to Medical Conditions or Safety Concerns. Shower/Bathe Self (QC): 4 Upper Body Dressing (QC): 5 On/Off Footwear: 5 Toileting Hygiene (QC): 6 Toilet Transfer (QC): 6 OT Yarn Skeins Examiner Goals Assisted Goals Time Frame: Oct 31, 2021 Eating (QC): 6 Oral Hygiene (QC): 6 Toileting Hygiene (QC): 6 Shower/Bathe Self (QC): 5 Upper Body Dressing (QC): 6 Lower Body Dressing (QC): 4 On/Off Footwear (QC): 4 Additional Goals: 1-Demonstrate ADL Tasks, 2-Verbalize Understanding, 3- ImproveStrength/Bunny 1=Demonstrate adherence to instructed precautions during ADL tasks. 2=Patient will verbalize/demonstrate understanding of assistive devices/mo difications for ADL. 3=Patient will improve strength/tolerance for activity to enable patient to perform ADL's. OT Education/Plan Problem List/Assessment Assessment: Decreased Activ Tolerance Discharge Recommendations Plan/Recommendations: Continue POC Treatment Plan/Plan of Care Patient would benefit from OT for education, treatment and training to promote independence in ADL's, mobility, safety and/or upper extremity function for ADL's. Plan of Care: ADL Retraining, Functional Mobility, UE Funct Exercise/Act Treatment Duration: Oct 31, 2021 Frequency: 5 times per week Estimated Hrs Per Day: .25 hour per day Agreement: Yes Rehab Potential: Fair Time/GCodes Start Time: 10:52 Stop Time: 11:39 Total Time Billed (hr/min): 47 Billed Treatment Time 1 visit-ADL 3 (47 min) RE MINER Oct 19, 2021 12:50
[2021-10-19 16:11] VITALS: BP 132/60
[2021-10-19 19:32] VITALS: BP 139/61
--- NOTE | 2021-10-19 19:33 | Progress Note - Hospitalist ---
Subjective HPI/CC On Admission Date Seen by Provider: Oct 19, 2021 Time Seen by Provider: 10:50 Patient is a 55-year-old female with past medical history of diabetes, hypertension, recent COVID infection, recent admission due to dental abscess with tooth extraction. She was discharged home on October 13 and in that time has b een slowly worsening. She states she has been unable to keep anything down. She vomited this morning as well when her blood pressure medicines were attempted. She believes her pain and swelling have worsened somewhat as well. She denies any shortness of breath or chest pain. She denies any fever. She is worried about her blood sugars as she has not been able to take her normal diabetes medications.The ER discussed her case with Dr. Gotti and repeated imaging which revealed persistent 1 cm abscess. Decision was made to admit due to inability to take oral antibiotics at home. Subjective/Events-last exam She is feeling better. She does not have any swelling. She is eating and drinking without issue. She denies breathing trouble. Objective Exam Vital Signs Vital Signs Date Time Temp Pulse Resp B/P (MAP) Pulse Ox O2 Delivery O2 Flow Rate FiO2 10/19/21 16:11 36.0 72 18 132/60 (84) 93 Room Air 10/17/21 13:39 21 Capillary Refill : Less Than 3 Seconds General Appearance: No Apparent Distress, Obese Neck: Normal Inspection, Supple Respiratory: Lungs Clear, No Respiratory Distress Cardiovascular: Regular Rate, Rhythm, No Murmur Gastrointestinal: Normal Bowel Sounds, Soft Extremity: Normal Inspection, No Pedal Edema Neurologic/Psychiatric: Alert, Normal Mood/Affect Skin: Normal Color, Warm/Dry Results/Procedures Lab Laboratory Tests 10/19/21 05:34 Patient resulted labs reviewed. Imaging: Reviewed Imaging Report Assessment/Plan Assessment and Plan Assess & Plan/Chief Complaint Right submandibular sialadenitis with abscess Cultures pending Continue IV antibiotics Steroids HTN GERD COPD Anxiety Continue home meds as able MAT protocol T2DM Hold metformin Sliding scale insulin High BS due to steroids Morbid obesity Weakness Clinically significant, no acute management needs PT/OT DVT prophylaxis: Lovenox Diagnosis/Problems Diagnosis/Problems (1) Submandibular gland infection Status: Acute (2) Dental abscess Status: Acute (3) Sialadenitis Status: Acute (4) T2DM (type 2 diabetes mellitus) Status: Chronic (5) HTN (hypertension) Status: Chronic (6) Morbid obesity Status: Chronic STEPHANIE HENDRICKS MD Oct 19, 2021 19:33
[2021-10-20 00:05] VITALS: BP 137/64
[2021-10-20] MEDS: 1/2 NS IV SOLUTION 1,000 ML IV SCH (02:52)
[2021-10-20 04:10] VITALS: BP 156/69
[2021-10-20] MEDS: methylPREDNISolone 40 MG/ML (Solu-MEDROL) VIAL IV SCH ×2 (06:10→12:41)
[2021-10-20] MEDS: PROPRANOLOL 20 MG (INDERAL) TABLET PO SCH ×2 (06:10→12:41)
[2021-10-20] MEDS: CATHETER FLUSH 10 ML SYR IVP SCH (06:11)
[2021-10-20] MEDS: inSUlin ASPART (NovoLOG) 1 UNIT/0.01 ML (CHARGE PER UNIT) SC SCH ×2 (06:14→12:41)
[2021-10-20 06:23] LABS: BASOPHILS % (AUTO) 0 % (0-10); EOSINOPHILS % (AUTO) 0 % (0-10); HEMATOCRIT 33 % (35-52); HEMOGLOBIN 10.4 g/dL (11.5-16.0); LYMPHOCYTES # (AUTO) 0.9 10^3/uL (1.0-4.0); LYMPHOCYTES % (AUTO) 6 % (12-44); MEAN CORPUSCULAR HEMOGLOBIN 27 pg (25-34); MEAN CORPUSCULAR HGB CONC 32 g/dL (32-36); MEAN CORPUSCULAR VOLUME 86 fL (80-99); MEAN PLATELET VOLUME 11.1 fL (9.0-12.2); MONOCYTES # (AUTO) 0.3 10^3/uL (0.0-1.0); MONOCYTES % (AUTO) 2 % (0-12); NEUTROPHILS # (AUTO) 14.2 10^3/uL (1.8-7.8); NEUTROPHILS % (AUTO) 90 % (42-75); PLATELET COUNT 344 10^3/uL (130-400); WHITE BLOOD COUNT 15.8 10^3/uL (4.3-11.0)
[2021-10-20 06:30] LABS: POTASSIUM 4.2 MMOL/L (3.6-5.0)
[2021-10-20 06:31] LABS: CALCIUM 8.6 MG/DL (8.5-10.1)
[2021-10-20 06:36] LABS: CREATININE SERUM 1.06 MG/DL (0.60-1.30)
[2021-10-20 07:04] LABS: ANISOCYTOSIS SLIGHT; BAND NEUTROPHILS 4 %; LYMPHOCYTES % (MANUAL) 4 %; MONOCYTES % (MANUAL) 3 %; NEUTROPHILS % (MANUAL) 89 %
[2021-10-20] MEDS: NON-FORM (Breztri Aerosphere Inhaler) IH SCH (07:32)
[2021-10-20 07:39] VITALS: BP 159/91
[2021-10-20] MEDS ORDERED: AMLO-250 PO (08:44)
[2021-10-20] MEDS ORDERED: NAPR-1033 PO (08:44)
[2021-10-20] MEDS ORDERED: FLUC100T10 PO (08:44)
[2021-10-20] MEDS ORDERED: OXYC5TAB PO (08:44)
--- NOTE | 2021-10-20 09:44 | Occupational Ther Daily Note ---
OT Current Status-Daily Note Subjective Pt alert, sitting in recliner. Pt agrees to therapy. No c/o pain. Mental Status/Objective Patient Orientation: Person, Place, Time, Situation Attachments: IV ADL-Treatment Therapy Code Descriptions/Definitions Functional [place] Measure: 0=Not Assessed/NA 4=Minimal Assistance 1=Total Assistance 5=Supervision or Setup 2=Maximal Assistance 6=Modified [place] 3=Moderate Assistance 7=Complete IndependenceSCALE: Activities may be completed with or without assistive devices. 9-Ivqqxwkzcm-cyomxvq completes the activity by him/herself with no assistance from a helper. 5-Set-up or Clean-up Assistance-helper sets up or cleans up; patient completes activity. [place] assists only prior to or following the activity. 4-Supervision or Touching Assistance-helper provides verbal cues and/or touching/steadying and/or contact guard assistance as patient completes activity. Assistance may be provided throughout the activity or intermittently. 3-Partial/Moderate Assistance-helper does LESS THAN HALF the effort. [place] l ifts, holds or supports trunk or limbs, but provides less than half the effort. 2-Substantial/Maximal Assistance-helper does MORE THAN HALF the effort. [place] lifts or holds trunk or limbs and provides more than half the effort. 7-Uybuwpgjy-sjsexe does ALL the effort. Patient does none of the effort to complete the activity. Or, the assistance of 2 or more helpers is required for t he patient to complete the activity. If activity was not attempted, code reason: 7-Patient Refused. 9-Not Applicable-not attempted and the patient did not perform the activity before the current illness, exacerbation or injury. 10-Not Attempted due to Environmental Limitations-(lack of equipment, weather restraints, etc.). 88-Not Attempted due to Medical Conditions or Safety Concerns. Other Treatment Pt given med/heavy theraband and HEP for use throughout the day and when pt disc harges to home. Pt able to complete 3 out of 6 exercises with theraband then IV site began to hurt and completed rest of without resistance, 1 set 10 reps. Skilled instruction for correct technique and modifications when necessary. Pt educated on energy conservation techniques. Pt able to verbalize understanding and given personal strategies used at home. After therapy, pt sitting in recliner with call light/phone in reach. All needs met in room. OT [facility] Goals Pig Casting Machine Operator Goals Time Frame: Oct 31, 2021 Eating (QC): 6 Oral Hygiene (QC): 6 Toileting Hygiene (QC): 6 Shower/Bathe Self (QC): 5 Upper Body Dressing (QC): 6 Lower Body Dressing (QC): 4 On/Off Footwear (QC): 4 Additional Goals: 1-Demonstrate ADL Tasks, 2-Verbalize Understanding, 3- ImproveStrength/Bunny 1=Demonstrate adherence to instructed precautions during ADL tasks. 2=Patient will verbalize/demonstrate understanding of assistive devices/modifications for ADL. 3=Patient will improve strength/tolerance for activity to enable patient to perform ADL's. OT Education/Plan Problem List/Assessment Assessment: Decreased Activ Tolerance, Decreased UE Strength Discharge Recommendations Plan/Recommendations: Continue POC Treatment Plan/Plan of Care Patient would benefit from OT for education, treatment and training to promote independence in ADL's, mobility, safety and/or upper extremity function for ADL's. Plan of Care: ADL Retraining, Functional Mobility, UE Funct Exercise/Act Treatment Duration: Oct 31, 2021 Frequency: 5 times per week Estimated Hrs Per Day: .25 hour per day Agreement: Yes Rehab Potential: Fair Time/GCodes Start Time: 09:25 Stop Time: 09:43 Total Time Billed (hr/min): 18 Billed Treatment Time 1 visit-EX 1 (18 min) RE MINER Oct 20, 2021 09:44
[2021-10-20] MEDS: amLODIPine 5 MG (NORVASC) TAB PO SCH (09:47)
[2021-10-20] MEDS: LACTOBACILLUS ACIDOPHILUS (PROBIOTIC) CAPSULE PO SCH ×2 (09:47→12:41)
[2021-10-20] MEDS: FAMOTIDINE 20MG/2ML IV (PEPCID) IVP SCH (09:47)
[2021-10-20] MEDS: CIPROFLOXACIN 400 MG/D5W 200 ML (PRE-MIX) IV SCH (09:48)
[2021-10-20] MEDS: NAPROXEN 250 MG (NAPROSYN) TABLET PO SCH (09:48)
[2021-10-20] MEDS ORDERED: CLIN-144 PO (11:04)
[2021-10-20 12:19] VITALS: BP 157/80
[2021-10-20] MEDS: ENOXAPARIN 40 MG/0.4 ML (LOVENOX) SYR SQ SCH (12:47)
[2021-10-20 13:35] VITALS: BP 157/80
--- NOTE | 2021-10-20 17:00 | Discharge Summary ---
Discharge Summary Hospital Course Problems/Dx: (1) Submandibular gland infection Status: Acute (2) Dental abscess Status: Acute (3) Sialadenitis Status: Acute (4) T2DM (type 2 diabetes mellitus) Status: Chronic (5) HTN (hypertension) Status: Chronic (6) Morbid obesity Status: Chronic Hospital Course Date of Admission: Oct 18, 2021 at 12:38 Admission Diagnosis : Right submandibular sialadenitis with abscess Family Physician/Provider: Jennifer Sumner MD Date of Discharge: 10/20/21 Discharge Diagnosis: Right submandibular sialadenitis with abscess Hospital Course: Christa Sandoval is a 55 year old female who was recently admitted with a dental abscess and returned with worsening facial and neck swelling. She underwent an I&D during her previous admission. She improved and was discharged with oral antibiotics. She worsened and returned to the ER. OMFS was consulted and performed repeat I&D on 10/17. Cultures again showed Strep anginosis. The previous culture also showed Prevotella and Eikenella. She was treated with IV Cipro while in the hospital and transitioned to oral Clindamycin to complete a course of antibiotics at home. She was discharged home in stable condition. She should follow up with her PCP in the next week or two. Labs and Pending Lab Test: Laboratory Tests 10/19/21 20:12: Glucometer 341H 10/20/21 06:10: Glucometer 235H, White Blood Count 15.8H, Red Blood Count 3.82, Hemoglobin 10.4L , Hematocrit 33L, Mean Corpuscular Volume 86, Mean Corpuscular Hemoglobin 27, Mean Corpuscular Hemoglobin Concent 32, Red Cell Distribution Width 14.9H, Platelet Count 344, Mean Platelet Volume 11.1, Immature Granulocyte % (Auto) 2, Neutrophils (%) (Auto) 90H, Lymphocytes (%) (Auto) 6L, Monocytes (%) (Auto) 2, Eosinophils (%) (Auto) 0, Basophils (%) (Auto) 0, Neutrophils # (Auto) 14.2H, Lymphocytes # (Auto) 0.9L, Monocytes # (Auto) 0.3, Eosinophils # (Auto) 0.0, Basophils # (Auto) 0.0, Immature Granulocyte # (Auto) 0.4H, Neutrophils % (Manual) 89, Lymphocytes % (Manual) 4, Monocytes % (Manual) 3, Band Neutrophils 4, Anisocytosis SLIGHT, Sodium Level 136, Potassium Level 4.2, Chloride Level 1 03, Carbon Dioxide Level 22, Anion Gap 11, Blood Urea Nitrogen 31H, Creatinine 1.06, Estimat Glomerular Filtration Rate 61, BUN/Creatinine Ratio 29, Glucose Level 260H, Calcium Level 8.6 10/20/21 10:14: Glucometer 357H Microbiology 10/17/21 Gram Stain - Final, Resulted 10/17/21 Wound Culture - Preliminary, Resulted Strep anginosus Home Meds Active Clindamycin HCl 300 Mg Capsule 300 Mg PO TID 7 Days Reported Naproxen Sodium 220 Mg Tablet 220 Mg PO DAILY PRN Amlodipine Besylate 5 Mg Tablet 5 Mg PO DAILY Fluconazole 100 Mg Tablet 100 Mg PO Q48H Oxycodone HCl 5 Mg Tablet 5 Mg PO TID PRN FILLED 10-13-2021 #20/ DAY SUPPLY Esomeprazole Magnesium 20 Mg Capsule.dr 20 Mg PO HS Metformin HCl ER (Metformin HCl) 500 Mg Tab.er.24 500 Mg PO DAILY Breztri Aerosphere Inhaler (Budesonide/Glycopyr/Formoterol) 160 Mcg-9 Mcg-4.8 Mcg/Actuation Hfa.aer.ad 2 Puff INH BID Famotidine 20 Mg Tablet 20 Mg PO BID Trulicity (Dulaglutide) 0.75 Mg/0.5 Ml Pen.injctr 0.75 Mg IJ THUR Irbesartan 150 Mg Tablet 150 Mg PO HS Escitalopram Oxalate 10 Mg Tablet 10 Mg PO HS Ventolin Hfa (Albuterol Sulfate) 1 Puff Puff 1 Puff INH Q8H PRN Metformin HCl ER (Metformin HCl) 500 Mg Tab.er.24h 1,000 Mg PO HS TAKES 2 (500MG) TABS Alprazolam 1 Mg Tablet 1 Mg PO BID PRN Propranolol HCl 40 Mg Tablet 40 Mg PO HS Assessment/Pt Instructions Take medications as prescribed. Follow up with your PCP. Return with worsening symptoms. Discharge Planning: >30 minutes discharge planning Discharge Instructions Discharge Diet: ADA Diet Activity as Tolerated: Yes Consultations OMFS Discharge Physical Examination Vital Signs Vital Signs Date Time Temp Pulse Resp B/P (MAP) Pulse Ox O2 Delivery O2 Flow Rate FiO2 10/20/21 13:35 37.0 71 18 157/80 99 Room Air 10/17/21 13:39 21 General Appearance: No Apparent Distress, Obese HEENT: PERRL/EOMI, Pharynx Normal Respiratory: Lungs Clear, No Respiratory Distress Cardiovascular: Regular Rate, Rhythm, No Murmur Gastrointestinal: Normal Bowel Sounds, Non Tender, Soft Extremity: Normal Inspection, No Pedal Edema Skin: Normal Color, Warm/Dry Neurologic/Psychiatric: Alert, Oriented x3, Normal Mood/Affect Allergies: Coded Allergies: Penicillins (Unverified Allergy, Severe, HIVES, THROAT SWELLS, DIFFICULTY BREATHING, 02/10/07) hydrocodone (Verified Allergy, Intermediate, "MAKES HER FEEL VERY BAD", 12/15/15) latex (Verified Allergy, Mild, RASH, 11/07/15) Cephalosporins (Unverified Allergy, Unknown, 12/16/15) celecoxib (Unverified Allergy, Unknown, 11/08/15) empagliflozin (Verified Allergy, Unknown, 02/05/21) tree nut (Unverified Allergy, Unknown, 10/08/21) Uncoded Allergies: TAPE (Adverse Reaction, Mild, RASH, WHELPS ON SKIN WHERE TAPE WAS., 02/10/07) Copy Copies To 1: JENNIFER SUMNER MD Discharge Summary Date of Admission Oct 18, 2021 at 12:38 Date of Discharge Oct 20, 2021 at 13:20 Discharge Date: Oct 20, 2021 Discharge Time: 13:20 Admission Diagnosis Right submandibular sialadenitis with abscess Consults/Procedures Consulations OMFS Procedures I&D Discharge Diagnosis Right submandibular sialadenitis with abscess (1) Submandibular gland infection Status: Acute (2) Dental abscess Status: Acute (3) Sialadenitis Status: Acute (4) T2DM (type 2 diabetes mellitus) Status: Chronic (5) HTN (hypertension) Status: Chronic (6) Morbid obesity Status: Chronic STEPHANIE HENDRICKS MD Oct 20, 2021 16:58
== END 2021-10-20 13:20 | disposition home or self-care (01) | DRG 155 ==
LOC: EDUNIT# 16:46 → ER 16:47 → 4TH 20:12 → OBSVTOIN 10-18 12:38
PROVIDERS: ADMIT Family Medicine; ATTEND Internal Medicine
DX: K11.20 Sialoadenitis, unspecified (principal); K12.2 Cellulitis and abscess of mouth; Z68.42 Body mass index [BMI] 45.0-49.9, adult; E66.01 Morbid (severe) obesity due to excess calories; K04.7 Periapical abscess without sinus; E11.9 Type 2 diabetes mellitus without complications; I10 Essential (primary) hypertension; Z86.16 Personal history of COVID-19; K21.9 Gastro-esophageal reflux disease without esophagitis; K57.90 Diverticulosis of intestine, part unspecified, without perforation or abscess without bleeding; M19.90 Unspecified osteoarthritis, unspecified site; G89.29 Other chronic pain; M54.9 Dorsalgia, unspecified; E03.9 Hypothyroidism, unspecified; F41.9 Anxiety disorder, unspecified; J44.9 Chronic obstructive pulmonary disease, unspecified; R53.1 Weakness; Z79.84 Long term (current) use of oral hypoglycemic drugs; Z79.899 Other long term (current) drug therapy
CPT/HCPCS: 36415; 70491; 71045; 80048; 80053; 82947; 85007; 85025; 85027; 87070; 87077; 87181; 87184; 87205; 94640; 94760; G0378

== ENCOUNTER → 2021-11-06 | Outpatient (CLI) | payer OTHER ==
[~2021-11-06] MED LIST changes: +CLIN-144 PO; +MICO5POW6 MC; +NSTR15C TP; +OXYC5TAB PO
[2021-11-06 15:04] LABS: BASOPHILS # (AUTO) 0.1 10^3/uL (0.0-0.1); BASOPHILS % (AUTO) 0 % (0-10); EOSINOPHILS # (AUTO) 0.4 10^3/uL (0.0-0.3); EOSINOPHILS % (AUTO) 4 % (0-10); HEMATOCRIT 36 % (35-52); HEMOGLOBIN 11.4 g/dL (11.5-16.0); LYMPHOCYTES # (AUTO) 3.6 X 10^3 (1.0-4.0); LYMPHOCYTES % (AUTO) 28 % (12-44); MEAN CORPUSCULAR HEMOGLOBIN 28 pg (25-34); MEAN CORPUSCULAR HGB CONC 32 g/dL (32-36); MEAN CORPUSCULAR VOLUME 87 fL (80-99); MEAN PLATELET VOLUME 10.9 fL (9.0-12.2); MONOCYTES % (AUTO) 8 % (0-12); NEUTROPHILS # (AUTO) 7.5 X 10^3 (1.8-7.8); NEUTROPHILS % (AUTO) 59 % (42-75); PLATELET COUNT 283 10^3/uL (130-400); WHITE BLOOD COUNT 12.6 10^3/uL (4.3-11.0)
== END ==
LOC: LAB 14:36
PROVIDERS: ATTEND Nurse Practitioner Family
DX: D72.829 Elevated white blood cell count, unspecified (principal)
CPT/HCPCS: 36415; 85025

== ENCOUNTER → 2021-11-18 | Outpatient (CLI) | payer OTHER | LOC: LAB 11:15 | PROVIDERS: ATTEND Internal Medicine | DX: D50.9 Iron deficiency anemia, unspecified (principal) | CPT/HCPCS: 36415; 82728; 83540; 83550 ==

== ENCOUNTER → 2021-11-18 | Outpatient (CLI) | payer OTHER ==
[2021-11-18 10:12] LABS: BASOPHILS # (AUTO) 0.1 10^3/uL (0.0-0.1); BASOPHILS % (AUTO) 1 % (0-10); EOSINOPHILS # (AUTO) 0.7 10^3/uL (0.0-0.3); EOSINOPHILS % (AUTO) 7 % (0-10); HEMATOCRIT 35 % (35-52); HEMOGLOBIN 11.3 g/dL (11.5-16.0); LYMPHOCYTES # (AUTO) 2.5 10^3/uL (1.0-4.0); LYMPHOCYTES % (AUTO) 23 % (12-44); MEAN CORPUSCULAR HEMOGLOBIN 28 pg (25-34); MEAN CORPUSCULAR HGB CONC 32 g/dL (32-36); MEAN CORPUSCULAR VOLUME 88 fL (80-99); MEAN PLATELET VOLUME 10.9 fL (9.0-12.2); MONOCYTES % (AUTO) 9 % (0-12); NEUTROPHILS # (AUTO) 6.4 10^3/uL (1.8-7.8); NEUTROPHILS % (AUTO) 59 % (42-75); PLATELET COUNT 383 10^3/uL (130-400); WHITE BLOOD COUNT 10.8 10^3/uL (4.3-11.0)
[2021-11-18 10:27] LABS: CALCIUM 10.2 MG/DL (8.5-10.1); CREATININE SERUM 0.85 MG/DL (0.60-1.30); POTASSIUM 4.4 MMOL/L (3.6-5.0)
== END ==
LOC: LAB 09:28
PROVIDERS: ATTEND Nurse Practitioner Family
DX: D72.829 Elevated white blood cell count, unspecified (principal); E11.9 Type 2 diabetes mellitus without complications; I10 Essential (primary) hypertension
CPT/HCPCS: 36415; 80048; 83036; 85025

== ENCOUNTER 2021-12-09 12:41 | Outpatient (RCR) | payer OTHER ==
[~2021-12-09 12:41] MED LIST changes: +FERRIC CARBOXYMALTOSE INJ 750 MG in NS (IVPB) 250 ML IV SCH; +diphenhydrAMINE 50 MG/ML INJ (BENADRYL) IM ONE; +diphenhydrAMINE 50 MG/ML INJ (BENADRYL) ONE
[2021-12-09] MEDS ORDERED: diphenhydrAMINE 50 MG/ML INJ (BENADRYL) ONE (12:59)
[2021-12-09] MEDS ORDERED: diphenhydrAMINE 50 MG/ML INJ (BENADRYL) IM ONE (15:45)
== END 2021-12-13 | disposition home or self-care (01) ==
LOC: ONC 12:41
PROVIDERS: ATTEND Internal Medicine
DX: D50.9 Iron deficiency anemia, unspecified (principal); D72.828 Other elevated white blood cell count; I10 Essential (primary) hypertension; E11.9 Type 2 diabetes mellitus without complications; E78.5 Hyperlipidemia, unspecified; E66.01 Morbid (severe) obesity due to excess calories; F41.9 Anxiety disorder, unspecified; Z85.528 Personal history of other malignant neoplasm of kidney; Z90.5 Acquired absence of kidney
CPT/HCPCS: 36415; 96365; 96375; 99213

== ENCOUNTER → 2022-02-19 | Outpatient (CLI) | payer OTHER ==
[~2022-02-19] MED LIST changes: -FERRIC CARBOXYMALTOSE INJ 750 MG in NS (IVPB) 250 ML IV SCH; -NSTR15C TP; +NYST15CR36 TP; -diphenhydrAMINE 50 MG/ML INJ (BENADRYL) IM ONE; -diphenhydrAMINE 50 MG/ML INJ (BENADRYL) ONE
== END ==
LOC: CARD 08:30
PROVIDERS: ATTEND Internal Medicine Cardiovascular Disease
DX: I10 Essential (primary) hypertension (principal); I25.10 Atherosclerotic heart disease of native coronary artery without angina pectoris
CPT/HCPCS: 93306

== ENCOUNTER → 2022-02-19 | Outpatient (CLI) | payer OTHER ==
[2022-02-19 09:47] LABS: BASOPHILS # (AUTO) 0.1 10^3/uL (0.0-0.1); BASOPHILS % (AUTO) 0 % (0-10); EOSINOPHILS # (AUTO) 0.4 10^3/uL (0.0-0.3); EOSINOPHILS % (AUTO) 3 % (0-10); HEMATOCRIT 41 % (35-52); HEMOGLOBIN 13.5 g/dL (11.5-16.0); LYMPHOCYTES # (AUTO) 2.3 10^3/uL (1.0-4.0); LYMPHOCYTES % (AUTO) 18 % (12-44); MEAN CORPUSCULAR HEMOGLOBIN 30 pg (25-34); MEAN CORPUSCULAR HGB CONC 33 g/dL (32-36); MEAN CORPUSCULAR VOLUME 90 fL (80-99); MEAN PLATELET VOLUME 10.7 fL (9.0-12.2); MONOCYTES % (AUTO) 8 % (0-12); NEUTROPHILS # (AUTO) 9.2 10^3/uL (1.8-7.8); NEUTROPHILS % (AUTO) 71 % (42-75); PLATELET COUNT 299 10^3/uL (130-400); WHITE BLOOD COUNT 13.1 10^3/uL (4.3-11.0)
[2022-02-19 10:21] LABS: ALBUMIN 3.9 GM/DL (3.2-4.5); BILIRUBIN,TOTAL 0.4 MG/DL (0.1-1.0); CALCIUM 10.2 MG/DL (8.5-10.1); CREATININE SERUM 0.94 MG/DL (0.60-1.30); POTASSIUM 4.9 MMOL/L (3.6-5.0); TOTAL PROTEIN 7.4 GM/DL (6.4-8.2)
== END ==
LOC: LAB 08:33
PROVIDERS: ATTEND Internal Medicine
DX: E11.9 Type 2 diabetes mellitus without complications (principal)
CPT/HCPCS: 36415; 80053; 80061; 82728; 83036; 83540; 83550; 85025

== ENCOUNTER → 2022-02-19 | Outpatient (CLI) | payer OTHER | LOC: LAB 08:31 | PROVIDERS: ATTEND Internal Medicine | DX: D50.9 Iron deficiency anemia, unspecified (principal) ==

== ENCOUNTER → 2022-02-23 | Outpatient (CLI) | payer OTHER ==
[2022-02-23 11:00] LABS: CALCIUM 9.7 MG/DL (8.5-10.1); CREATININE SERUM 0.93 MG/DL (0.60-1.30); POTASSIUM 4.6 MMOL/L (3.6-5.0)
== END ==
LOC: LAB 10:05
PROVIDERS: ATTEND Internal Medicine
DX: R82.994 Hypercalciuria (principal)
CPT/HCPCS: 36415; 80048; 83970

== ENCOUNTER 2022-03-01 10:11 | Outpatient (RCR) | payer OTHER | END 2022-03-15 | disposition home or self-care (01) | LOC: ONC 10:11 | PROVIDERS: ATTEND Internal Medicine | DX: D50.9 Iron deficiency anemia, unspecified (principal); D72.828 Other elevated white blood cell count; I10 Essential (primary) hypertension; E11.9 Type 2 diabetes mellitus without complications; E78.5 Hyperlipidemia, unspecified; E66.01 Morbid (severe) obesity due to excess calories; F41.9 Anxiety disorder, unspecified; Z85.528 Personal history of other malignant neoplasm of kidney; Z90.5 Acquired absence of kidney | CPT/HCPCS: 99213 ==

== ENCOUNTER → 2022-03-02 | Outpatient (CLI) | payer OTHER ==
--- NOTE | 2022-03-02 13:05 | Diagnostic Imaging Report ---
INDICATION: Hyperthyroidism, postmenopausal state. COMPARISON: 12/02/2004. FINDINGS: AP Spine L1-L4: [BMD (g/cm2): 1.589] [T-Score: 3.2] [Z-Score: 3.1] [BMD Previous: 1.468] [BMD % Change: 8.2] LT Hip Neck: [BMD (g/cm2): 1.087] [T-Score: 0.4] [Z-Score: 0.7] LT Hip Total: [BMD (g/cm2):1.083] [T-Score:0.6] [Z-Score: 0.6] [BMD Previous: 1.238] [BMD % Change: -12.5] RT Hip Neck: [BMD (g/cm2):1.041] [T-Score:0.0] [Z-Score:0.4] RT Hip Total: [BMD (g/cm2):1.056] [T-score:0.4] [Z-Score:0.4] [BMD Previous:1.210] [BMD % Change:-12.7] *Indicates significant change from prior examination based on 95% confidence level. World Health Organization criteria for BMD interpretation classify patients as Normal (T-score at or above -1.0), Osteopenic (T-score between -1.0 and -2.5) or Osteoporotic (T-score at or below -2.5). LIMITATIONS AND MODIFICATION: None. IMPRESSION: 1. Normal bone mineral density. 2. Bone mineral density within the bilateral hips has significantly decreased since 2004. Bone mineral density within the lumbar spine has significantly increased since 2004. 3. See below National Osteoporosis Foundation guidelines on when to potentially initiate pharmacologic therapy. Based on the National Osteoporosis Foundation Guidelines, pharmacologic treatment should be initiated in any of the following, unless clinical conditions suggest otherwise: * Any patient with prior fragility fracture of the hip or vertebrae. A spine fracture indicates 5X risk for subsequent spine fracture and 2X risk for subsequent hip fracture. * Osteoporosis (T-score <-2.5). * Postmenopausal women and men age 50 and older with low bone mass/osteopenia (T-score between -1.0 and -2.5) by DXA and 10-year major osteoporotic fracture greater than 20% or a 10-year probability of hip fracture greater than 3%. These fracture risks are supplied above in the FRAX score, if applicable. * Clinician judgement and/or patient preferences may indicate treatment for people with 10-year fracture probabilities above or below these levels. Dictated by: Dictated on workstation # [id number]
== END ==
LOC: RAD 08:47
PROVIDERS: ATTEND Internal Medicine
DX: E21.3 Hyperparathyroidism, unspecified (principal); Z78.0 Asymptomatic menopausal state
CPT/HCPCS: 77080

== ENCOUNTER → 2022-03-03 | Outpatient (CLI) | payer OTHER ==
--- NOTE | 2022-03-03 17:08 | Diagnostic Imaging Report ---
HISTORY: Bilateral hip pain TECHNIQUE: Frontal view of the pelvis. Frontal and lateral views of the bilateral hips. COMPARISON: None FINDINGS: There are moderate degenerative changes in the right hip and mild degenerative change in the left hip. Femoral heads are well-seated in the acetabula bilaterally. Bilateral sacroiliac joints are patent. There is transitional anatomy at the lumbosacral junction with degenerative change in the lower lumbar spine. IMPRESSION: 1. Degenerative changes in the hips, right greater than left, with no acute osseous abnormality seen. 2. Transitional anatomy at the lumbosacral junction. Dictated by: Dictated on workstation # [id number]
== END ==
LOC: RAD 12:51
PROVIDERS: ATTEND Nurse Practitioner Family
DX: M16.0 Bilateral primary osteoarthritis of hip (principal)
CPT/HCPCS: 73523

== ENCOUNTER → 2022-05-27 | Outpatient (CLI) | payer OTHER ==
[2022-05-27 10:28] LABS: CREATININE SERUM 0.85 MG/DL (0.60-1.30); POTASSIUM 4.6 MMOL/L (3.6-5.0)
== END ==
LOC: LAB 09:33
PROVIDERS: ATTEND Nurse Practitioner Family
DX: I10 Essential (primary) hypertension (principal); E11.9 Type 2 diabetes mellitus without complications; E78.5 Hyperlipidemia, unspecified
CPT/HCPCS: 36415; 80048; 83036

== ENCOUNTER → 2022-07-16 | Outpatient (CLI) | payer OTHER ==
[2022-07-16 12:00] LABS: BASOPHILS # (AUTO) 0.1 10^3/uL (0.0-0.1); BASOPHILS % (AUTO) 0 % (0-10); EOSINOPHILS # (AUTO) 0.5 10^3/uL (0.0-0.3); EOSINOPHILS % (AUTO) 3 % (0-10); HEMATOCRIT 41 % (35-52); HEMOGLOBIN 13.6 g/dL (11.5-16.0); LYMPHOCYTES # (AUTO) 2.8 10^3/uL (1.0-4.0); LYMPHOCYTES % (AUTO) 18 % (12-44); MEAN CORPUSCULAR HEMOGLOBIN 29 pg (25-34); MEAN CORPUSCULAR HGB CONC 33 g/dL (32-36); MEAN CORPUSCULAR VOLUME 87 fL (80-99); MEAN PLATELET VOLUME 10.7 fL (9.0-12.2); MONOCYTES # (AUTO) 1.1 10^3/uL (0.0-1.0); MONOCYTES % (AUTO) 7 % (0-12); NEUTROPHILS # (AUTO) 10.9 10^3/uL (1.8-7.8); NEUTROPHILS % (AUTO) 71 % (42-75); PLATELET COUNT 366 10^3/uL (130-400); WHITE BLOOD COUNT 15.5 10^3/uL (4.3-11.0)
[2022-07-16 12:19] LABS: BAND NEUTROPHILS 0 %; BASOPHILS % (MANUAL) 0 %; EOSINOPHILS % (MANUAL) 3 %; LYMPHOCYTES % (MANUAL) 21 %; MONOCYTES % (MANUAL) 3 %; NEUTROPHILS % (MANUAL) 73 %; RBC MORPH NORMAL
== END ==
LOC: LAB 11:41
PROVIDERS: ATTEND Nurse Practitioner Family
DX: E11.8 Type 2 diabetes mellitus with unspecified complications (principal); I10 Essential (primary) hypertension
CPT/HCPCS: 36415; 85007; 85027

== ENCOUNTER → 2022-07-22 | Outpatient (CLI) | payer OTHER ==
[2022-07-22 15:01] LABS: BASOPHILS % (AUTO) 0 % (0-10); EOSINOPHILS # (AUTO) 0.4 10^3/uL (0.0-0.3); EOSINOPHILS % (AUTO) 3 % (0-10); HEMATOCRIT 39 % (35-52); HEMOGLOBIN 12.7 g/dL (11.5-16.0); LYMPHOCYTES # (AUTO) 3.1 X 10^3 (1.0-4.0); LYMPHOCYTES % (AUTO) 20 % (12-44); MEAN CORPUSCULAR HEMOGLOBIN 29 pg (25-34); MEAN CORPUSCULAR HGB CONC 33 g/dL (32-36); MEAN CORPUSCULAR VOLUME 87 fL (80-99); MEAN PLATELET VOLUME 10.7 fL (9.0-12.2); MONOCYTES # (AUTO) 1.4 X 10^3 (0.0-1.0); MONOCYTES % (AUTO) 9 % (0-12); NEUTROPHILS # (AUTO) 10.4 X 10^3 (1.8-7.8); NEUTROPHILS % (AUTO) 67 % (42-75); PLATELET COUNT 389 10^3/uL (130-400); WHITE BLOOD COUNT 15.4 10^3/uL (4.3-11.0)
[2022-07-22 15:41] LABS: EOSINOPHILS % (MANUAL) 5 %; LYMPHOCYTES % (MANUAL) 13 %; MONOCYTES % (MANUAL) 11 %; NEUTROPHILS % (MANUAL) 71 %
[2022-07-22 15:42] LABS: PLATELET ESTIMATE ADEQUATE; RBC MORPH NORMAL
== END ==
LOC: LAB 14:34
PROVIDERS: ATTEND Nurse Practitioner Family
DX: D72.829 Elevated white blood cell count, unspecified (principal)
CPT/HCPCS: 36415; 85007; 85027

== ENCOUNTER 2022-08-09 11:59 | Outpatient (RCR) | payer MEDICAID, OTHER ==
[2022-08-09 12:24] LABS: BASOPHILS # (AUTO) 0.1 10^3/uL (0.0-0.1); BASOPHILS % (AUTO) 1 % (0-10); EOSINOPHILS # (AUTO) 0.7 10^3/uL (0.0-0.3); EOSINOPHILS % (AUTO) 4 % (0-10); HEMATOCRIT 40 % (35-52); HEMOGLOBIN 13.2 g/dL (11.5-16.0); LYMPHOCYTES # (AUTO) 2.9 10^3/uL (1.0-4.0); LYMPHOCYTES % (AUTO) 19 % (12-44); MEAN CORPUSCULAR HEMOGLOBIN 29 pg (25-34); MEAN CORPUSCULAR HGB CONC 33 g/dL (32-36); MEAN CORPUSCULAR VOLUME 86 fL (80-99); MEAN PLATELET VOLUME 10.8 fL (9.0-12.2); MONOCYTES # (AUTO) 1.2 10^3/uL (0.0-1.0); MONOCYTES % (AUTO) 8 % (0-12); NEUTROPHILS # (AUTO) 10.7 10^3/uL (1.8-7.8); NEUTROPHILS % (AUTO) 69 % (42-75); PLATELET COUNT 375 10^3/uL (130-400); WHITE BLOOD COUNT 15.6 10^3/uL (4.3-11.0)
[2022-08-09 12:44] LABS: ALBUMIN 3.9 GM/DL (3.2-4.5); BILIRUBIN,TOTAL 0.4 MG/DL (0.1-1.0); CALCIUM 10.1 MG/DL (8.5-10.1); CREATININE SERUM 1.07 MG/DL (0.60-1.30); POTASSIUM 4.4 MMOL/L (3.6-5.0); TOTAL PROTEIN 7.4 GM/DL (6.4-8.2)
== END 2022-08-13 | disposition home or self-care (01) ==
LOC: ONC 11:59
PROVIDERS: ATTEND Internal Medicine Hematology & Oncology
DX: D72.829 Elevated white blood cell count, unspecified (principal); E61.1 Iron deficiency; I10 Essential (primary) hypertension; E11.9 Type 2 diabetes mellitus without complications; E78.5 Hyperlipidemia, unspecified
CPT/HCPCS: 80053; 82728; 83540; 83550; 85025

== ENCOUNTER → 2022-08-09 | Outpatient (CLI) | payer MEDICAID, OTHER | LOC: ONC 12:07 | PROVIDERS: ATTEND Internal Medicine | DX: Z53.9 Procedure and treatment not carried out, unspecified reason (principal) | CPT/HCPCS: 80053; 82728; 83540; 83550; 85025 ==

== ENCOUNTER 2022-08-17 11:01 | Outpatient (RCR) | payer OTHER | END 2022-09-12 | LOC: ONC 11:01 | PROVIDERS: ATTEND Internal Medicine Hematology & Oncology | DX: D50.9 Iron deficiency anemia, unspecified (principal); I10 Essential (primary) hypertension; E11.9 Type 2 diabetes mellitus without complications; D72.829 Elevated white blood cell count, unspecified; E78.5 Hyperlipidemia, unspecified; M54.50 Low back pain, unspecified ==

== ENCOUNTER 2022-09-02 17:58 | Emergency (ER) | payer OTHER ==
[~2022-09-02] VITALS: Ht 160 cm; Wt 127.0 kg
[2022-09-02] MEDS ORDERED: ANTACID SUSP 30 ML UDC (MYLANTA) PO ONE (18:15)
[2022-09-02] MEDS ORDERED: LIDOCAINE 2% VISCOUS 15 ML UDC PO ONE (18:15)
[2022-09-02] MEDS ORDERED: SUCRALFATE 1 GM (CARAFATE) TAB PO ONE (18:15)
--- NOTE | 2022-09-02 18:20 | ED Cardiac General ---
History of Present Illness General Chief Complaint: Chest Pain Stated Complaint: CHEST PAIN/SOA/HEADACHE Nursing Triage Note: PT STATES HAVING CHEST PAIN LT UPPER AND FRONT LT HEAD. STATES HAVING BRAIN FOG EARLIER TODAY, HX OF POTS SYNDROME AND LONG COVID. BP OF 90/60 AT HOME, USUALLY HAS HTN. JUN 2022 4TH ROUND OF COVID Source: patient Exam Limitations: no limitations History of Present Illness Date Seen by Provider: Sep 02, 2022 Time Seen by Provider: 18:03 Initial Comments 56-year-old female presents to the emergency department today for what she describes as excessive fatigue. She states she was in the kitchen and that, for her to only be able to tolerate standing for 10 to 15 minutes at a time due to severe back pain. She was standing and had severe back pain and then suddenly felt overwhelming fatigue. She has no focal symptoms but she did then develop some "indigestion." She describes this as belching and a burning in her mid chest. She does states acid coming up into her throat. She continues to have the belching. She tells me her normal temperature is "96.5-97." She feels as though she has had a low-grade fever at 98.599 for 8 weeks. She states it seems to have resolved in the last couple of days she denies any other new symptoms. She has had stress test reportedly within the last year which was negative. All other systems reviewed and negative except documented per HPI. Voice recognition software was used to help create this chart Allergies and Home Medications Allergies Coded Allergies: Penicillins (Unverified Allergy, Severe, HIVES, THROAT SWELLS, DIFFICULTY BREATHING, 02/10/07) hydrocodone (Verified Allergy, Intermediate, "MAKES HER FEEL VERY BAD", 12/15/15) latex (Verified Allergy, Mild, RASH, 11/07/15) Cephalosporins (Unverified Allergy, Unknown, 12/16/15) celecoxib (Unverified Allergy, Unknown, 11/08/15) empagliflozin (Verified Allergy, Unknown, 02/05/21) tree nut (Unverified Allergy, Unknown, 10/08/21) Uncoded Allergies: TAPE (Adverse Reaction, Mild, RASH, WHELPS ON SKIN WHERE TAPE WAS., 02/10/07) Patient Home Medication List Home Medication List Reviewed: Yes Albuterol Sulfate (Ventolin Hfa) 1 Puff Puff, 1 PUFF INH Q8H PRN for SHORTNESS OF BREATH, (Reported) Entered as Reported by: WALTER VALENTINE on 07/21/20 1505 Alprazolam (Alprazolam) 1 Mg Tablet, 1 MG PO BID PRN for ANXIETY, (Reported) Entered as Reported by: WALTER VALENTINE on 07/21/20 1505 Amlodipine Besylate (Amlodipine Besylate) 5 Mg Tablet, 5 MG PO DAILY, (Reported) Entered as Reported by: CECI GARZON on 10/20/21 0844 Budesonide/Glycopyr/Formoterol (Breztri Aerosphere Inhaler) 160 Mcg-9 Mcg-4.8 Mcg/Actuation Hfa.aer.ad, 2 PUFF INH BID, (Reported) Entered as Reported by: DUSTIN DAVILA on 10/05/21 142 Clindamycin HCl (Clindamycin HCl) 300 Mg Capsule, 300 MG PO TID Prescribed by: STEPHANIE HENDRICKS on 10/20/21 1104 Dulaglutide (Trulicity) 0.75 Mg/0.5 Ml Pen.injctr, 0.75 MG IJ THUR, (Reported) Entered as Reported by: DUSTIN DAVILA on 10/05/21 1424 Escitalopram Oxalate (Escitalopram Oxalate) 10 Mg Tablet, 10 MG PO HS, (Reported) Entered as Reported by: ERINN CERDA on 02/26/21 1603 Esomeprazole Magnesium (Esomeprazole Magnesium) 20 Mg Capsule.dr, 20 MG PO HS, (Reported) Entered as Reported by: DUSTIN DAVILA on 10/05/21 1424 Famotidine (Famotidine) 20 Mg Tablet, 20 MG PO BID, (Reported) Entered as Reported by: DUSTIN DAVILA on 10/05/21 1424 Fluconazole (Fluconazole) 100 Mg Tablet, 100 MG PO Q48H, (Reported) Entered as Reported by: CECI GARZON on 10/20/21 0844 Irbesartan (Irbesartan) 150 Mg Tablet, 150 MG PO HS, (Reported) Entered as Reported by: KADEN LAMB on 10/04/21 2130 Metformin HCl (Metformin HCl ER) 500 Mg Tab.er.24h, 1,000 MG PO HS, (Reported) Entered as Reported by: WALTER VALENTINE on 07/21/20 1505 Metformin HCl (Metformin HCl ER) 500 Mg Tab.er.24, 500 MG PO DAILY, (Reported) Entered as Reported by: DUSTIN DAVILA on 10/05/21 1424 Naproxen Sodium (Naproxen Sodium) 220 Mg Tablet, 220 MG PO DAILY PRN for PAIN- MILD (1-4), (Reported) Entered as Reported by: CECI GARZON on 10/20/21 0844 Oxycodone HCl (Oxycodone HCl) 5 Mg Tablet, 5 MG PO TID PRN for PAIN-SEVERE (8- 10), (Reported) Entered as Reported by: CECI GARZON on 10/20/21 0844 Propranolol HCl (Propranolol HCl) 40 Mg Tablet, 40 MG PO HS, (Reported) Entered as Reported by: SILVANO APONTE on 12/15/15 0846 Review of Systems Review of Systems Constitutional: see HPI Past Ninmqkt-[id number]-Tyvwqk Hx Patient Social History Tobacco Use?: No Use of E-Cig and/or Vaping dev: No Substance use?: No Alcohol Use?: No Immunizations Up To Date Tetanus Booster (TDap): Unknown First/Initial COVID19 Vaccinat: NO Second COVID19 Vaccination Cesario: NO Third COVID19 Vaccination Date: NO Seasonal Allergies Seasonal Allergies: Yes Past Medical History Surgery/Hospitalization HX: dm, neck/back pain, htn, gerd, FIBRO, LONG COVID, POTS Surgeries: Yes (SURGERY ON BOILS, HEMORRHOIDECTOMY, TUMOR REMOVED FROM L KIDNEY) Abdominal, Section, Gallbladder, Hysterectomy Respiratory: Yes ("EXERCISE INDUCED ASTHMA", COVID-01 August 2020) Asthma, Pneumonia, Chronic Bronchitis Currently Using CPAP: No Currently Using BIPAP: No Cardiac: Yes Angina, Hypertension, Palpitations Neurological: No 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 Disorders: No [employer] History: Hysterectomy Sexually Transmitted Disease: No Genitourinary: Yes (left renal CA; partial nephroectomy) Kidney Infection, Kidney Stones Gastrointestinal: Yes (Fatty Liver Disease, UMBILICAL HERNIA) Gastroesophageal Reflux, Diverticulosis, Polyps, Ulcer, Irritable Bowel Musculoskeletal: Yes (STENOSIS IN LOWER BACK, OSTEOARTHRITIS, DJD) Degenerate Disk Disease, Arthritis, Chronic Back Pain, Fractures Endocrine: Yes Hypothyroidsim, Diabetes, Non-Insulin dep Cancer: Yes Breast Did You Recieve Any Treatments: Yes What Type of Treatment Did You: Surgical Intervention Psychosocial: Yes (PANIC ATTACKS ) Anxiety Integumentary: No Blood Disorders: No Adverse Reaction/Blood Tranf: No Family Medical History Reviewed Nursing Family Hx Cardiovascular disease 19 FATHER, Onset:Unknown Completed stroke 19 FATHER, Onset:Unknown Congenital heart disease Dementia 19 FATHER, Onset:Unknown Diabetes mellitus 19 FATHER, Onset:Unknown FH: COPD (chronic obstructive pulmonary disease) 19 MOTHER, Onset:Unknown Hypertension 19 FATHER, Onset:Unknown Myocardial infarction 19 FATHER, Onset:Unknown Thyroid disease 19 MOTHER, Onset:Unknown No Pertinent Family Hx Physical Exam Vital Signs Vital Signs - First Documented 09/02/22 18:00 Temp 36.8 Pulse 81 Resp 20 B/P (MAP) 176/82 (113) Pulse Ox 97 O2 Delivery Room Air Capillary Refill : Less Than 3 Seconds Height, Weight, BMI Height: 5'3.00" Weight: 285lbs. 0.0oz. 129.492016zr; 49.00 BMI Method:Stated General Appearance: No Apparent Distress, WD/WN HEENT: Normal ENT Inspection, Pharynx Normal Neck: Non Tender, Supple Respiratory: Chest Non Tender, Lungs Clear, Normal Breath Sounds, No Accessory Muscle Use, No Respiratory Distress Cardiovascular: Regular Rate, Rhythm, No Murmur, Normal Peripheral Pulses Gastrointestinal: Normal Bowel Sounds, No Organomegaly, No Pulsatile Mass, Non Tender, Soft, Other (Morbidly obese) Extremity: Normal Capillary Refill, Normal Inspection, Normal Range of Motion, Non Tender, No Calf Tenderness Neurologic/Psychiatric: Alert, Oriented x3, No Motor/Sensory Deficits Skin: Normal Color, Warm/Dry Procedures/Interventions Date of ETT Placement: October 07, 2021 Progress/Results/Core Measures Results/Orders Lab Results Laboratory Tests Test 09/02/22 18:05 Range/Units White Blood Count 13.9 H 4.3-11.0 10^3/uL Red Blood Count 3.95 3.80-5.11 10^6/uL Hemoglobin 11.3 L 11.5-16.0 g/dL Hematocrit 35 35-52 % Mean Corpuscular Volume 87 80-99 fL Mean Corpuscular Hemoglobin 29 25-34 pg Mean Corpuscular Hemoglobin Concent 33 32-36 g/dL Red Cell Distribution Width 13.8 10.0-14.5 % Platelet Count 336 130-400 10^3/uL Mean Platelet Volume 11.3 9.0-12.2 fL Immature Granulocyte % (Auto) 1 % Neutrophils (%) (Auto) 65 42-75 % Lymphocytes (%) (Auto) 20 12-44 % Monocytes (%) (Auto) 9 0-12 % Eosinophils (%) (Auto) 5 0-10 % Basophils (%) (Auto) 1 0-10 % Neutrophils # (Auto) 9.1 H 1.8-7.8 10^3/uL Lymphocytes # (Auto) 2.8 1.0-4.0 10^3/uL Monocytes # (Auto) 1.2 H 0.0-1.0 10^3/uL Eosinophils # (Auto) 0.6 H 0.0-0.3 10^3/uL Basophils # (Auto) 0.1 0.0-0.1 10^3/uL Immature Granulocyte # (Auto) 0.1 0.0-0.1 10^3/uL Sodium Level 138 135-145 MMOL/L Potassium Level 4.7 3.6-5.0 MMOL/L Chloride Level 105 98-107 MMOL/L Carbon Dioxide Level 21 21-32 MMOL/L Anion Gap 12 5-14 MMOL/L Blood Urea Nitrogen 28 H 7-18 MG/DL Creatinine 1.14 0.60-1.30 MG/DL Estimat Glomerular Filtration Rate 56 BUN/Creatinine Ratio 25 Glucose Level 258 H 70-105 MG/DL Calcium Level 9.2 8.5-10.1 MG/DL Corrected Calcium 9.6 8.5-10.1 MG/DL Magnesium Level 1.9 1.6-2.4 MG/DL Total Bilirubin 0.2 0.1-1.0 MG/DL Aspartate Amino Transf (AST/SGOT) 17 5-34 U/L Alanine Aminotransferase (ALT/SGPT) 21 0-55 U/L Alkaline Phosphatase 75 40-136 U/L Troponin I < 0.028 <0.028 NG/ML Total Protein 6.5 6.4-8.2 GM/DL Albumin 3.5 3.2-4.5 GM/DL My Orders Orders - PRECIOUSKATELYNN DO Cbc With Automated Diff (09/02/22 18:14) Magnesium (09/02/22 18:14) Chest 1 View, Ap/Pa Only (09/02/22 18:14) Comprehensive Metabolic Panel (09/02/22 18:14) Monitor-Rhythm Ecg Trace Only (09/02/22 18:14) Ed Iv/Invasive Line Start (09/02/22 18:14) Troponin I [place] (09/02/22 18:14) Sucralfate Tablet (Carafate Tablet) (09/02/22 18:15) Lidocaine 2% Viscous 15 Ml (Xylocaine Vi (09/02/22 18:15) Antacid Suspension (Mylanta Suspension (09/02/22 18:15) Medications Given in ED Current Medications Medications Dose Ordered Sig/Raheem Route Start Time Stop Time Status Last Admin Dose Admin Al Hydrox/Mg Hydrox/Simethicone 30 ml ONCE ONCE PO 09/02/22 18:15 09/02/22 18:16 DC 09/02/22 18:24 30 ML Lidocaine HCl 5 ml ONCE ONCE PO 09/02/22 18:15 09/02/22 18:16 DC 09/02/22 18:24 5 ML Sucralfate 1 gm ONCE ONCE PO 09/02/22 18:15 09/02/22 18:16 DC 09/02/22 18:23 1 GM Vital Signs/I&O 09/02/22 18:00 Temp 36.8 Pulse 81 Resp 20 B/P (MAP) 176/82 (113) Pulse Ox 97 O2 Delivery Room Air Blood Pressure Mean: 113 Comment Sinus rhythm with a rate of 81 bpm. Left axis deviation. Normal intervals. No ST or T wave abnormalities. No ectopy. No STEMI. Departure Communication (Admissions) ANATOMY: Left Main is free of obstructive disease Left Anterior Descending is tortuous artery with mild disease nonobstructive disease Left Circumflex is tortuous artery with mild disease nonobstructive disease Right Coronory Artery is dominant artery with sqyb-[id number]-yewnysok disease nonobstructive disease LV Gram was not done, pressure was measured Aorta evaluation done with aortic arch angiogram showing normal aortic arch, no dissection or aneurysm, normal origin of the brachiocephalic artery, left carotid and left subclavian arteries CONCLUSION: 1. Mild coronary artery disease with some tortuosity, nonobstructive disease 2. Normal left ventricular end-diastolic pressure 3. Normal aortic arch and great vessels of the neck DISCUSSION AND RECOMMENDATION: Medical therapy is recommended no intervention is needed Anesthesia Type: Conscious Sedation Estimated blood loss (mL): 10 ml Contrast Amount: 62 ml Total Radiation Dose: 541 mGy Post-Procedure Diagnosis Post-operative diagnosis: Chest pain Coronary artery disease Hypertension Hyperlipidemia EDUARDO GREENE MD Dec 26, 2019 1:48 pm [id number] <Created by EDUARDO GREENE MD> <Electronically signed by EDUARDO GREENE MD> 12/27/19 1257 Patient is feeling much better after GI cocktail. Her heart score is 3 given comorbidities and age. Her story is not really concerning. She does still have some mild belching at bedside but she states this is improving as well. I reviewed her outpatient heart cath and stress testing as documented. Overall low 30-day risk for major adverse cardiac events based on heart score. She stable for discharge and outpatient follow-up. No indication for other emergent medical condition such as pulmonary embolus, pneumonia, other infectious process Impression Primary Impression: Belching Additional Impression: Fatigue Qualified Codes: R53.83 - Other fatigue Disposition: 01 HOME, SELF-CARE Condition: Stable Departure-Patient Inst. Referrals: JENNIFER SUMNER MD (PCP/Family) Primary Care Physician Patient Instructions: Chest Pain That Is Not Caused by the Heart (DC) Add. Discharge Instructions: You are seen in the emergency department today for an episode of fatigue. I do not believe this is related to your heart. There is certainly no stroke symptoms either. Your electrolytes are normal and your renal function is normal. You are not anemic. Is unclear what caused your symptoms however it does not appear to be an emergent condition at this time. Please increase fluids and rest at home. Follow-up with your primary doctor should your symptoms persist. Return to the emergency department for any severe concerns. All discharge instructions reviewed with patient and/or family. Voiced understanding. KATELYNN LANG DO Sep 02, 2022 18:20
[2022-09-02 18:21] LABS: BASOPHILS # (AUTO) 0.1 10^3/uL (0.0-0.1); BASOPHILS % (AUTO) 1 % (0-10); EOSINOPHILS # (AUTO) 0.6 10^3/uL (0.0-0.3); EOSINOPHILS % (AUTO) 5 % (0-10); HEMATOCRIT 35 % (35-52); HEMOGLOBIN 11.3 g/dL (11.5-16.0); LYMPHOCYTES # (AUTO) 2.8 10^3/uL (1.0-4.0); LYMPHOCYTES % (AUTO) 20 % (12-44); MEAN CORPUSCULAR HEMOGLOBIN 29 pg (25-34); MEAN CORPUSCULAR HGB CONC 33 g/dL (32-36); MEAN CORPUSCULAR VOLUME 87 fL (80-99); MEAN PLATELET VOLUME 11.3 fL (9.0-12.2); MONOCYTES # (AUTO) 1.2 10^3/uL (0.0-1.0); MONOCYTES % (AUTO) 9 % (0-12); NEUTROPHILS # (AUTO) 9.1 10^3/uL (1.8-7.8); NEUTROPHILS % (AUTO) 65 % (42-75); PLATELET COUNT 336 10^3/uL (130-400); WHITE BLOOD COUNT 13.9 10^3/uL (4.3-11.0)
[2022-09-02 18:26] LABS: ALBUMIN 3.5 GM/DL (3.2-4.5); POTASSIUM 4.7 MMOL/L (3.6-5.0)
[2022-09-02 18:28] LABS: CALCIUM 9.2 MG/DL (8.5-10.1)
[2022-09-02 18:29] LABS: TOTAL PROTEIN 6.5 GM/DL (6.4-8.2)
[2022-09-02 18:31] LABS: BILIRUBIN,TOTAL 0.2 MG/DL (0.1-1.0)
[2022-09-02 18:32] LABS: CREATININE SERUM 1.14 MG/DL (0.60-1.30)
[2022-09-02 18:35] LABS: MAGNESIUM 1.9 MG/DL (1.6-2.4)
--- NOTE | 2022-09-02 18:39 | Diagnostic Imaging Report ---
INDICATION: Chest pain Portable chest 6:21 PM Heart size and pulmonary vascularity are normal. Lungs are clear. There are no effusions or pneumothoraces. IMPRESSION: No acute abnormalities in the chest Dictated by: Dictated on workstation # [id number]
[2022-09-02 19:33] VITALS: BP 138/82
== END 2022-09-02 19:33 | disposition home or self-care (01) ==
LOC: EDUNIT# 17:58 → ER 18:00
DX: R14.2 Eructation (principal); R53.83 Other fatigue; R07.89 Other chest pain; Z91.040 Latex allergy status; Z86.16 Personal history of COVID-19; Z28.310 Unvaccinated for COVID-19
CPT/HCPCS: 36415; 71045; 80053; 83735; 84484; 85025; 93005; 93041

== ENCOUNTER → 2022-09-13 | Outpatient (CLI) | payer OTHER | LOC: LAB 08:18 | PROVIDERS: ATTEND Nurse Practitioner Family | DX: E11.8 Type 2 diabetes mellitus with unspecified complications (principal); I10 Essential (primary) hypertension | CPT/HCPCS: 36415; 82533; 83036; 84443 ==

== ENCOUNTER → 2022-09-21 | Outpatient (CLI) | payer OTHER ==
[2022-09-22 09:33] LABS: ALANINE AMINOTRANSFERASE 17 U/L (0-55); ALBUMIN 3.8 GM/DL (3.2-4.5); ALKALINE PHOSPHATASE 87 U/L (40-136); BILIRUBIN,DIRECT < 0.1 MG/DL (0.0-0.3); BILIRUBIN,INDIRECT 0.1 MG/DL; BILIRUBIN,TOTAL 0.2 MG/DL (0.1-1.0); BUN/CREATININE RATIO 32; CALCIUM 9.5 MG/DL (8.5-10.1); CARBON DIOXIDE 25 MMOL/L (21-32); CHLORIDE 106 MMOL/L (98-107); CHOLESTEROL 167 MG/DL (< 200); CREATININE SERUM 1.01 MG/DL (0.60-1.30); GFR ESTIMATED 65; GLUCOSE 122 MG/DL (70-105); HDL CHOLESTEROL 39 MG/DL (40-60); POTASSIUM 4.7 MMOL/L (3.6-5.0); SODIUM 141 MMOL/L (135-145); TOTAL PROTEIN 7.1 GM/DL (6.4-8.2); TRIGLYCERIDES 158 MG/DL (<150); VLDL CHOLESTEROL 32 MG/DL (5-40)
== END ==
LOC: LAB 09:25
PROVIDERS: ATTEND Physician Assistant
DX: E78.2 Mixed hyperlipidemia (principal); R94.5 Abnormal results of liver function studies

== ENCOUNTER → 2022-09-21 | Outpatient (CLI) | payer OTHER ==
[2022-09-22 09:23] LABS: BASOPHILS % (AUTO) 0 % (0-10); EOSINOPHILS # (AUTO) 0.8 10^3/uL (0.0-0.3); EOSINOPHILS % (AUTO) 6 % (0-10); HEMATOCRIT 38 % (35-52); HEMOGLOBIN 12.1 g/dL (11.5-16.0); LYMPHOCYTES # (AUTO) 2.6 X 10^3 (1.0-4.0); LYMPHOCYTES % (AUTO) 19 % (12-44); MEAN CORPUSCULAR HEMOGLOBIN 28 pg (25-34); MEAN CORPUSCULAR HGB CONC 32 g/dL (32-36); MEAN CORPUSCULAR VOLUME 88 fL (80-99); MEAN PLATELET VOLUME 10.8 fL (9.0-12.2); MONOCYTES # (AUTO) 0.9 X 10^3 (0.0-1.0); MONOCYTES % (AUTO) 7 % (0-12); NEUTROPHILS # (AUTO) 9.1 X 10^3 (1.8-7.8); NEUTROPHILS % (AUTO) 67 % (42-75); PLATELET COUNT 349 10^3/uL (130-400); WHITE BLOOD COUNT 13.6 10^3/uL (4.3-11.0)
[2022-09-22 09:24] LABS: BASOPHILS # (AUTO) 0.1 10^3/uL (0.0-0.1)
== END ==
LOC: LAB 09:20
PROVIDERS: ATTEND Nurse Practitioner Family
DX: D72.829 Elevated white blood cell count, unspecified (principal)

== ENCOUNTER → 2022-11-01 | Outpatient (CLI) | payer OTHER ==
[~2022-11-01] MED LIST changes: +ALLO100T PO; +ASPI-999 PO; +ATOR10TA66 PO; +AZEL205.10 NS; +BECL10.62 IH; +CELE100C84 PO; +CYCL5TAB PO; +DULA0.75 SQ; +FLUC100T PO; +LEVO750T PO; +MAGN250T31 PO; +MONT-40 PO
== END ==
LOC: RAD 08:45
PROVIDERS: ATTEND Internal Medicine Critical Care Medicine
DX: J44.9 Chronic obstructive pulmonary disease, unspecified (principal); R06.3 Periodic breathing; J30.1 Allergic rhinitis due to pollen; K21.9 Gastro-esophageal reflux disease without esophagitis; Z53.9 Procedure and treatment not carried out, unspecified reason

== ENCOUNTER 2022-11-06 21:17 | Inpatient (IN) | payer OTHER ==
[~2022-11-06] VITALS: Ht 160 cm; Wt 133.0 kg
[~2022-11-06 21:17] MED LIST changes: -ALLO100T PO; -ASPI-999 PO; -ATOR10TA66 PO; -AZEL205.10 NS; -BECL10.62 IH; -CELE100C84 PO; -CYCL5TAB PO; -DULA0.75 SQ; -FLUC100T PO; -LEVO750T PO; -MAGN250T31 PO; -MONT-40 PO
[2022-11-06] MEDS ORDERED: ACETAMINOPHEN 500 MG TAB (TYLENOL) PO ONE (22:15)
[2022-11-06] MEDS ORDERED: NS IV 1000 ML 1,000 ML IV STA (22:15)
--- NOTE | 2022-11-06 22:19 | ED General ---
General Chief Complaint: Lower Extremity Stated Complaint: PAIN RIGHT FOOT/FEVER Nursing Triage Note: PT TO TRIAGE VIA W/C WITH C/O RIGHT FOOT PAIN X3 DAYS. PT YEAST UNDER HER PANUS THAT HAS BECOME PAINFUL. PT STATES SHE HAS BEEN SCRAPING THE YEAST FROM BETWEEN THE SKIN ROLLS. PT REPORTS FEVER OF 101.6 AT HOME. PT REPORT VOMITING THIS MORNING. History of Present Illness Date Seen by Provider: Nov 06, 2022 Time Seen by Provider: 22:05 Initial Comments Christa is a 56-year-old female who presents to the emergency room with a found chief complaint of right foot pain, fever at home, generalized malaise and fa tigue, nausea and vomiting over the last 2 to 3 days. She has been suffering from a significant yeast infection under her pannus. She has been using Monistat and mupirocin cream. She is type II diabetic with fibromyalgia. She can get up and move around when she is not having pain. She denies any injury to the right foot. She did have it wrapped prior to arrival for the ride in the car. Has not taken any Tylenol or ibuprofen today. Has occasional cough, no shortness of breath. She supposed to wear CPAP at night, no home oxygen. Room air oxygen is 92%. Heart rate is in the mid 90s. Reports Tmax at home 101.8. She denies chest pain, abdominal pain. No dysuria. Timing/Duration: 2-3 Days Severity: Severe Associated Systoms: Cough, Fever/Chills, Loss of Appetite, Malaise, Nausea/Vomiting, Rash, Weakness Allergies and Home Medications Allergies Coded Allergies: Penicillins (Unverified Allergy, Severe, HIVES, THROAT SWELLS, DIFFICULTY BREATHING, 02/10/07) hydrocodone (Verified Allergy, Intermediate, "MAKES HER FEEL VERY BAD", 12/15/15) latex (Verified Allergy, Mild, RASH, 11/07/15) Cephalosporins (Unverified Allergy, Unknown, 12/16/15) celecoxib (Unverified Allergy, Unknown, 11/08/15) empagliflozin (Verified Allergy, Unknown, 02/05/21) meropenem (Verified Allergy, Unknown, Itching, 11/07/22) itching and throat swelling tree nut (Unverified Allergy, Unknown, 10/08/21) Uncoded Allergies: TAPE (Adverse Reaction, Mild, RASH, WHELPS ON SKIN WHERE TAPE WAS., ) Patient Home Medication List Home Medication List Reviewed: Yes Albuterol Sulfate (Ventolin Hfa) 1 Puff Puff, 1 PUFF INH Q8H PRN for SHORTNESS OF BREATH, (Reported) Entered as Reported by: WALTER VALENTINE on 07/21/20 1505 Last Action: Reviewed Aspirin (Aspirin) 81 Mg Tab.chew, 81 MG PO DAILY, (Reported) Entered as Reported by: PETER TENORIO on 11/07/22158 Last Action: Reviewed Atorvastatin Calcium (Atorvastatin Calcium) 10 Mg Tablet, 10 MG PO DAILY, (Reported) Entered as Reported by: PETER TENORIO on 11/07/22299 Last Action: Reviewed Budesonide/Glycopyr/Formoterol (Breztri Aerosphere Inhaler) 160 Mcg-9 Mcg-4.8 Mcg/Actuation Hfa.aer.ad, 2 PUFF INH BID, (Reported) Entered as Reported by: DUSTIN DAVILA on 10/05/211423 Last Action: Reviewed Celecoxib (Celecoxib) 100 Mg Capsule, 100 MG PO BID, (Reported) Entered as Reported by: PETER TENORIO on 11/07/22158 Last Action: Reviewed Cyclobenzaprine HCl (Cyclobenzaprine HCl) 5 Mg Tablet, 5 MG PO Q8H, (Reported) Entered as Reported by: PETER TENORIO on 11/07/22299 Last Action: Reviewed Escitalopram Oxalate (Escitalopram Oxalate) 10 Mg Tablet, 10 MG PO HS, (Reported) Entered as Reported by: ERINN CERDA on 02/26/21 1603 Last Action: Reviewed Famotidine (Famotidine) 20 Mg Tablet, 20 MG PO BID, (Reported) Entered as Reported by: DUSTIN DAVILA on 10/05/211423 Last Action: Reviewed Irbesartan (Irbesartan) 150 Mg Tablet, 150 MG PO HS, (Reported) Entered as Reported by: KADEN LAMB on 10/04/212129 Last Action: Reviewed Metformin HCl (Metformin HCl ER) 500 Mg Tab.er.24, 500 MG PO BID, (Reported) Entered as Reported by: DUSTIN DAVILA on 10/05/211423 Last Action: Reviewed Montelukast Sodium (Montelukast Sodium) 10 Mg Tablet, 10 MG PO DAILY, (Reported) Entered as Reported by: PETER TENORIO on 11/07/22 021 Last Action: Reviewed Propranolol HCl (Propranolol HCl) 40 Mg Tablet, 40 MG PO BID, (Reported) Entered as Reported by: SILVANO APONTE on 12/15/15 0846 Last Action: Reviewed Review of Systems Review of Systems Constitutional: see HPI, fever, malaise, weakness EENTM: no symptoms reported Respiratory: cough (occasional) Cardiovascular: no symptoms reported Gastrointestinal: loss of appetite, nausea, vomiting Genitourinary: no symptoms reported : No Musculoskeletal: joint pain (right foot) Skin: rash All Other Systems Reviewed Negative Unless Noted: Yes Past Nzosjii-Mlucer-Rdsxzf Hx Patient Social History Tobacco Use?: No Smoking Status: Never a Smoker Smokeless Tobacco Frequency: Never a User Use of E-Cig and/or Vaping dev: No Use of E-Cig and/or Vaping Daniel: Never a User Substance use?: No Alcohol Use?: No Pt feels they are or have been: No Immunizations Up To Date Tetanus Booster (TDap): Unknown First/Initial COVID19 Vaccinat: NO Second COVID19 Vaccination Cesario: NO Third COVID19 Vaccination Date: NO Seasonal Allergies Seasonal Allergies: Yes Past Medical History Surgery/Hospitalization HX: dm, neck/back pain, htn, gerd, FIBRO, LONG COVID, POTS Surgeries: Yes (SURGERY ON BOILS, HEMORRHOIDECTOMY, TUMOR REMOVED FROM L KIDNEY) Abdominal, Section, Gallbladder, Hysterectomy Respiratory: Yes ("EXERCISE INDUCED ASTHMA", COVID-01 August 2020) Asthma, Pneumonia, Chronic Bronchitis Currently Using CPAP: No Currently Using BIPAP: No Cardiac: Yes Angina, Hypertension, Palpitations Neurological: No 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 Disorders: No 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 Sexually Transmitted Disease: No Genitourinary: Yes (left renal CA; partial nephroectomy) Kidney Infection, Kidney Stones Gastrointestinal: Yes (Fatty Liver Disease, UMBILICAL HERNIA) Gastroesophageal Reflux, Diverticulosis, Polyps, Ulcer, Irritable Bowel Musculoskeletal: Yes (STENOSIS IN LOWER BACK, OSTEOARTHRITIS, DJD) Degenerate Disk Disease, Arthritis, Chronic Back Pain, Fractures Endocrine: Yes Hypothyroidsim, Diabetes, Non-Insulin dep Cancer: Yes Breast Did You Recieve Any Treatments: Yes What Type of Treatment Did You: Surgical Intervention Psychosocial: Yes (PANIC ATTACKS ) Anxiety Integumentary: No Blood Disorders: No Adverse Reaction/Blood Tranf: No Family Medical History Cardiovascular disease 19 FATHER, Onset:Unknown Completed stroke 19 FATHER, Onset:Unknown Congenital heart disease Dementia 19 FATHER, Onset:Unknown Diabetes mellitus 19 FATHER, Onset:Unknown FH: COPD (chronic obstructive pulmonary disease) 19 MOTHER, Onset:Unknown Hypertension 19 FATHER, Onset:Unknown Myocardial infarction 19 FATHER, Onset:Unknown Thyroid disease 19 MOTHER, Onset:Unknown No Pertinent Family Hx Physical Exam Vital Signs Vital Signs - First Documented 11/06/22 21:35 Temp 38.3 Pulse 101 Resp 17 B/P (MAP) 137/68 (91) O2 Delivery Room Air Capillary Refill : Less Than 3 Seconds Height, Weight, BMI Height: 5'3.00" Weight: 285lbs. 0.0oz. 129.080369vw; 51.00 BMI Method:Stated General Appearance: No Apparent Distress, Obese Eyes: Bilateral Eye Normal Inspection, Bilateral Eye PERRL, Bilateral Eye EOMI HEENT: PERRL/EOMI, Moist Mucous Membranes Neck: Normal Inspection Respiratory: Lungs Clear, Normal Breath Sounds, No Accessory Muscle Use, No Respiratory Distress Cardiovascular: Regular Rate, Rhythm, Normal Peripheral Pulses Gastrointestinal: Normal Bowel Sounds, Soft, Other (morbid obesity with exceddingly large panus) Extremity: Normal Capillary Refill, Normal Range of Motion; No Calf Tenderness; Pedal Edema (right foot with mild edema and erythema on the dorsum of the foot with proximal lymphangitic streaking up the alnterior leg; very tender to palpation over the entire foot.) Neurologic/Psychiatric: Alert, Oriented x3, No Motor/Sensory Deficits, Normal Mood/Affect, counter person II-XII Norm as Tested Skin: Normal Color, Warm/Dry, Other (significant candidal dermatitis under her panus and also under left breast; ) Focused Exam Lactate Level 11/06/22 22:45: Lactic Acid Level 1.11 Time of Focused Exam: 23:00 Respiratory: Lungs Clear, Normal Breath Sounds, No Accessory Muscle Use, No Re spiratory Distress Cardiovascular: Regular Rate, Rhythm, Normal Peripheral Pulses Capillary Refill: Less Than 3 Seconds Peripheral Pulses: 1+ Radial Pulses (R), 1+ Radial Pulses (L) Skin: normal color, warm/dry, rash Lactic Acid Level Laboratory Tests Test 11/06/22 22:45 Lactic Acid Level 1.11 MMOL/L (0.50-2.00) Within 3hrs of presentation: Admin fluids, Admin ABX, Blood cultures prior to ABX's, Focus exam, Lactate level Procedures/Interventions Date of ETT Placement: October 07, 2021 Progress/Results/Core Measures Suspected Sepsis Recent Fever Within 48 Hours: Yes Infection Criteria Present: Suspected New Infection New/Unexplained Altered Menta: No Within 3hrs of presentation: Admin fluids, Admin ABX, Blood cultures prior to ABX's, Focus exam, Lactate level SIRS Temperature: Pulse: 101 Respiratory Rate: 17 Laboratory Tests 11/06/22 21:57: White Blood Count 21.8H Blood Pressure 137 /68 Mean: 91 11/06/22 22:45: Lactic Acid Level 1.11 Laboratory Tests 11/06/22 21:52: Creatinine 1.51H, INR Comment 1.0, Total Bilirubin 0.7 11/06/22 21:57: Platelet Count 391 Results/Orders Lab Results Laboratory Tests Test 11/06/22 21:52 11/06/22 21:57 11/06/22 22:45 Range/Units Prothrombin Time 13.2 12.2-14.7 SEC INR Comment 1.0 0.8-1.4 Activated Partial Thromboplast Time 22 L 24-35 SEC Sodium Level 134 L 135-145 MMOL/L Potassium Level 4.9 3.6-5.0 MMOL/L Chloride Level 100 98-107 MMOL/L Carbon Dioxide Level 20 L 21-32 MMOL/L Anion Gap 14 5-14 MMOL/L Blood Urea Nitrogen 29 H 7-18 MG/DL Creatinine 1.51 H 0.60-1.30 MG/DL Estimat Glomerular Filtration Rate 40 BUN/Creatinine Ratio 19 Glucose Level 166 H 70-105 MG/DL Calcium Level 10.0 8.5-10.1 MG/DL Corrected Calcium 10.2 H 8.5-10.1 MG/DL Total Bilirubin 0.7 0.1-1.0 MG/DL Aspartate Amino Transf (AST/SGOT) 26 5-34 U/L Alanine Aminotransferase (ALT/SGPT) 16 0-55 U/L Alkaline Phosphatase 99 40-136 U/L Total Protein 7.8 6.4-8.2 GM/DL Albumin 3.8 3.2-4.5 GM/DL White Blood Count 21.8 H 4.3-11.0 10^3/uL Red Blood Count 4.48 3.80-5.11 10^6/uL Hemoglobin 12.5 11.5-16.0 g/dL Hematocrit 39 35-52 % Mean Corpuscular Volume 87 80-99 fL Mean Corpuscular Hemoglobin 28 25-34 pg Mean Corpuscular Hemoglobin Concent 32 32-36 g/dL Red Cell Distribution Width 13.3 10.0-14.5 % Platelet Count 391 130-400 10^3/uL Mean Platelet Volume 11.1 9.0-12.2 fL Immature Granulocyte % (Auto) 1 % Neutrophils (%) (Auto) 76 H 42-75 % Lymphocytes (%) (Auto) 12 12-44 % Monocytes (%) (Auto) 9 0-12 % Eosinophils (%) (Auto) 2 0-10 % Basophils (%) (Auto) 0 0-10 % Neutrophils # (Auto) 16.6 H 1.8-7.8 10^3/uL Lymphocytes # (Auto) 2.6 1.0-4.0 10^3/uL Monocytes # (Auto) 2.0 H 0.0-1.0 10^3/uL Eosinophils # (Auto) 0.4 H 0.0-0.3 10^3/uL Basophils # (Auto) 0.1 0.0-0.1 10^3/uL Immature Granulocyte # (Auto) 0.2 H 0.0-0.1 10^3/uL Neutrophils % (Manual) 64 % Lymphocytes % (Manual) 17 % Monocytes % (Manual) 10 % Band Neutrophils 6 % Reactive Lymphocytes 3 % Lactic Acid Level 1.11 0.50-2.00 MMOL/L My Orders Orders - LISS FLORENTINO MD Cbc With Automated Diff (11/06/22 22:15) Comprehensive Metabolic Panel (11/06/22 22:15) Blood Culture (11/06/22 22:15) Sputum Culture (11/06/22 22:15) Urinalysis (11/06/22 22:15) Urine Culture (11/06/22 22:15) Protime With Inr (11/06/22 22:15) Partial Thromboplastin Time (11/06/22 22:15) Chest 1 View, Ap/Pa Only (11/06/22 22:15) Ed Iv/Invasive Line Start (11/06/22 22:15) Ed Iv/Invasive Line Start (11/06/22 22:15) Vital Signs Adult Sepsis Patie Q15M (11/06/22 22:15) O2 (11/06/22 22:15) Remove Rings In Anticipation O (11/06/22 22:15) Lactic Acid Analyzer (11/06/22 22:15) Ns Iv 1000 Ml (Sodium Chloride 0.9%) (11/06/22 22:15) Acetaminophen Tablet (Tylenol Tablet) (11/06/22 22:15) Manual Differential (11/06/22 21:57) Vancomycin Injection (Vancomycin Injecti (11/06/22 23:45) Medications Given in ED Current Medications Medications Dose Ordered Sig/Raheem Route Start Time Stop Time Status Last Admin Dose Admin Acetaminophen 1,000 mg ONCE ONCE PO 11/06/22 22:15 11/06/22 22:16 DC 11/06/22 22:40 1,000 MG Vancomycin HCl 1000 mg/Sodium Chloride 250 ml @ 250 mls/hr ONCE ONCE IV 11/06/22 23:45 11/07/22 00:44 DC 11/07/22 00:46 250 MLS/HR Vital Signs/I&O 11/06/22 11/06/22 21:35 22:40 Temp 38.3 38.3 Pulse 101 Resp 17 B/P (MAP) 137/68 (91) O2 Delivery Room Air Capillary Refill : Less Than 3 Seconds Blood Pressure Mean: 91 Progress Note : Time: 23:46 Progress Note Patient seen and evaluated by me. Evaluation today includes physical exam, CBC, Chem-12, blood cultures, lactic acid, coags, urinalysis, single view chest x- ray. Pertinent physical exam findings morbidly obese female, no acute distress. Vital signs show fever of 101, mildly tachycardic with a pulse of 101. Blood pressure is normal. Room air oxygen 92 to 94% with no increased work of breathing or respiratory distress. Heart is regular. Abdomen as stated morbidly obese, soft. She has significant candidal dermatitis under her pannus. Also under the left breast. This is very tender to palpation. The skin is very excoriated under the pannus with no open ulcerations. Her right lower extremity demonstrates swelling over the dorsum of the right foot with erythema that streaks proximally up the anterior lower right leg. Very tender to palpation. No open wounds are noted. Differential diagnosis based on history and physical exam sepsis due to cellulitis, urinary tract infection, pneumonia. Labs and imaging independently reviewed and interpreted by me. CBC shows a total white count of 21.8, hemoglobin of 12.5 hematocrit of 39, platelet count of 391. 76% segmented neutrophils. Chem-12 is pertinent for a BUN of 29, creatinine of 1.51 blood sugar 166. Lactic acid 1.11. Coags within normal range. Patient was not able to provide a urinalysis prior to being transported to the room. Her chest x-ray shows no focal infiltrates or effusions. She is treated in the emergency department with IV fluids as well as 1 g of vancomycin. As the patient had allergies to cephalosporins, penicillins and meropenem she was given aztreonam 2 g. Case was discussed with Dr. Linder hospitalist who accepts patient for admission to the medical floor. Bridge orders written. Diagnostic Imaging Diagonstic Imaging: Xray Plain Films/CT/US/NM/MRI: chest Comments Chest x-ray independent interpretation by me no focal infiltrates or effusions Departure Communication (Admissions) Time/Spoke to Admitting Phy: 23:[address] Linder; admit obs to med/surg Impression Primary Impression: Cellulitis Qualified Codes: L03.115 - Cellulitis of right lower limb Additional Impression: Candidal dermatitis Disposition: ADMITTED INPATIENT Condition: Stable Admissions Decision to Admit Reason: Admit from ER (General) Decision to Admit/Date: Nov 06, 2022 Time/Decision to Admit Time: 23:46 Departure-Patient Inst. Referrals: JENNIFER SUMNER MD (PCP/Family) Primary Care Physician LISS FLORENTINO MD Nov 06, 2022 22:18
[2022-11-06 22:22] LABS: BASOPHILS # (AUTO) 0.1 10^3/uL (0.0-0.1); BASOPHILS % (AUTO) 0 % (0-10); EOSINOPHILS # (AUTO) 0.4 10^3/uL (0.0-0.3); EOSINOPHILS % (AUTO) 2 % (0-10); HEMATOCRIT 39 % (35-52); HEMOGLOBIN 12.5 g/dL (11.5-16.0); LYMPHOCYTES # (AUTO) 2.6 10^3/uL (1.0-4.0); LYMPHOCYTES % (AUTO) 12 % (12-44); MEAN CORPUSCULAR HEMOGLOBIN 28 pg (25-34); MEAN CORPUSCULAR HGB CONC 32 g/dL (32-36); MEAN CORPUSCULAR VOLUME 87 fL (80-99); MEAN PLATELET VOLUME 11.1 fL (9.0-12.2); MONOCYTES % (AUTO) 9 % (0-12); NEUTROPHILS # (AUTO) 16.6 10^3/uL (1.8-7.8); NEUTROPHILS % (AUTO) 76 % (42-75); PLATELET COUNT 391 10^3/uL (130-400); WHITE BLOOD COUNT 21.8 10^3/uL (4.3-11.0)
[2022-11-06 22:28] LABS: PROTHROMBIN TIME PATIENT 13.2 SEC (12.2-14.7)
[2022-11-06 22:43] LABS: ALBUMIN 3.8 GM/DL (3.2-4.5); BILIRUBIN,TOTAL 0.7 MG/DL (0.1-1.0); CREATININE SERUM 1.51 MG/DL (0.60-1.30); POTASSIUM 4.9 MMOL/L (3.6-5.0); TOTAL PROTEIN 7.8 GM/DL (6.4-8.2)
[2022-11-06 22:43] LABS: BAND NEUTROPHILS 6 %; LYMPHOCYTES % (MANUAL) 17 %; MONOCYTES % (MANUAL) 10 %; NEUTROPHILS % (MANUAL) 64 %; REACTIVE LYMPHOCYTES 3 %
[2022-11-06] MEDS ORDERED: MEROPENEM 500 MG in NS (IVPB) 100 ML IV ONE (23:45)
[2022-11-06] MEDS ORDERED: VANCOMYCIN INJECTION 1,000 MG in NS (IVPB) 250 ML IV ONE (23:45)
[2022-11-07] VITALS (7 sets, daily range): BP systolic 137–165; BP diastolic 68–82
[2022-11-07] MEDS ORDERED: VANCOMYCIN 1000 MG/VIAL ONE (00:38)
[2022-11-07] MEDS ORDERED: AZTREONAM INJECTION 2,000 MG in NS (IVPB) 100 ML IV ONE (00:45)
[2022-11-07] MEDS ORDERED: RT-ALBUTEROL SULF 2.5 MG/3 ML PRE-MIX VIAL INH PRN (01:45)
[2022-11-07] MEDS ORDERED: ASPI-999 PO (01:59)
[2022-11-07] MEDS ORDERED: CELE100C84 PO (01:59)
[2022-11-07] MEDS ORDERED: CATHETER FLUSH 10 ML SYR IVP PRN (02:00)
[2022-11-07] MEDS ORDERED: VANCOMYCIN 1500MG/300ML PREMIX IV ONE (02:00)
[2022-11-07] MEDS ORDERED: NS (IVPB) 100 ML ONE (02:07)
[2022-11-07] MEDS ORDERED: MONT-40 PO (02:15)
[2022-11-07] MEDS: CATHETER FLUSH 10 ML SYR IVP SCH ×3 (02:55→21:28)
[2022-11-07] MEDS ORDERED: ATOR10TA66 PO (03:00)
[2022-11-07] MEDS ORDERED: CYCL5TAB PO (03:00)
[2022-11-07 05:43] LABS: BASOPHILS # (AUTO) 0.1 10^3/uL (0.0-0.1); BASOPHILS % (AUTO) 0 % (0-10); EOSINOPHILS # (AUTO) 0.4 10^3/uL (0.0-0.3); EOSINOPHILS % (AUTO) 3 % (0-10); HEMATOCRIT 35 % (35-52); HEMOGLOBIN 10.9 g/dL (11.5-16.0); LYMPHOCYTES # (AUTO) 2.5 10^3/uL (1.0-4.0); LYMPHOCYTES % (AUTO) 16 % (12-44); MEAN CORPUSCULAR HEMOGLOBIN 28 pg (25-34); MEAN CORPUSCULAR HGB CONC 32 g/dL (32-36); MEAN CORPUSCULAR VOLUME 88 fL (80-99); MEAN PLATELET VOLUME 10.8 fL (9.0-12.2); MONOCYTES # (AUTO) 1.6 10^3/uL (0.0-1.0); MONOCYTES % (AUTO) 10 % (0-12); NEUTROPHILS # (AUTO) 11.5 10^3/uL (1.8-7.8); NEUTROPHILS % (AUTO) 71 % (42-75); PLATELET COUNT 305 10^3/uL (130-400); WHITE BLOOD COUNT 16.2 10^3/uL (4.3-11.0)
[2022-11-07] MEDS ORDERED: metFORMIN XR 500 MG (GLUCOPHAGE XR) TAB PO SCH (07:00)
--- NOTE | 2022-11-07 07:36 | Diagnostic Imaging Report ---
INDICATION: Dyspnea with weakness and fever. COMPARISON: 09/02/2022. DISCUSSION: Single portable upright view of the chest was obtained. Normal heart size. No consolidation, pleural fluid, or pneumothorax. No osseous abnormality. IMPRESSION: Negative chest. Dictated by: Dictated on workstation # [id number]
[2022-11-07] MEDS: PROPRANOLOL 20 MG (INDERAL) TABLET PO SCH ×2 (08:02→21:27)
[2022-11-07] MEDS: amLODIPine 5 MG (NORVASC) TAB PO SCH (08:02)
[2022-11-07] MEDS: MICONAZOLE 2% POWDER (DESENEX AF) 90 GM TOP SCH ×2 (09:27→21:28)
[2022-11-07] MEDS: AZTREONAM 2 GM/NS 100 ML IVPB IV SCH ×4 (09:27→17:06)
[2022-11-07] MEDS ORDERED: fluCOnazole (DIFLUCAN) 100 MG TAB PO ONE (12:15)
[2022-11-07] MEDS: metFORMIN XR 500 MG (GLUCOPHAGE XR) TAB PO SCH (16:46)
--- NOTE | 2022-11-07 16:51 | History & Physical-Hospitalist ---
History of Present Illness HPI/Chief Complaint Christa Sandoval is a 56 year old female with PMH HTN, T2DM, super obesity, fibromyalgia, gout, Raynaud's, who presented with right foot pain. She reports pain and swelling for a couple days. She was also having fevers. She reports weakness. She has also had a bad fungal infection on her abdomen. She denies chest pain. She denies shortness of breath. Source: patient Exam Limitations: no limitations Date Seen 11/07/22 Time Seen by a Provider: 12:10 Attending Physician Jasvir Clemons MD PCP Admitting Physician: Stephanie Hendricks MD Attending Physician: Stephanie Hendricks MD Referring Physician Date of Admission Nov 07, 2022 at 08:48 Home Medications & Allergies Home Medications Reviewed patient Home Medication Reconciliation performed by pharmacy medication reconciliations technician helper instrument and/or nursing. Patients Allergies have been reviewed. Allergies Allergies Coded Allergies Penicillins (Unverified Allergy, Severe, HIVES, THROAT SWELLS, DIFFICULTY LILI ATHING, 02/10/07) hydrocodone (Verified Allergy, Intermediate, "MAKES HER FEEL VERY BAD", 12/15/15) latex (Verified Allergy, Mild, RASH, 11/07/15) Cephalosporins (Unverified Allergy, Unknown, 12/16/15) celecoxib (Unverified Allergy, Unknown, 11/08/15) empagliflozin (Verified Allergy, Unknown, 02/05/21) meropenem (Verified Allergy, Unknown, Itching, 11/07/22) itching and throat swelling tree nut (Unverified Allergy, Unknown, 10/08/21) Uncoded Allergies TAPE ( Adverse Reaction, Mild, RASH, WHELPS ON SKIN WHERE TAPE WAS., 02/10/07) Past Vepwbpn-Ifvaxa-Xofogo Hx Patient Social History Tobacco Use?: No Smoking Status: Never a Smoker Smokeless Tobacco Frequency: Never a User Use of E-Cig and/or Vaping dev: No Use of E-Cig and/or Vaping Daniel: Never a User Substance use?: No Alcohol Use?: No Pt feels they are or have been: No Immunizations Up To Date First/Initial COVID19 Vaccinat: NO Second COVID19 Vaccination Cesario: NO Tetanus Booster (TDap): Unknown Date of Pneumonia Vaccine: Jun 27, 2013 Seasonal Allergies Seasonal Allergies: Yes Current Status Advance Directives: No Communicates: Verbally Primary Language: Mozambican Preferred Spoken Language: Mozambican Is interpretation needed?: No Implanted or Applied Medical D: None Past Medical History Surgeries: Abdominal, Section, Gallbladder, Hysterectomy Asthma, Pneumonia, Chronic Bronchitis Currently Using CPAP: No Currently Using BIPAP: No Angina, Hypertension, 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 Sexually Transmitted Disease: No Kidney Infection, Kidney Stones Gastroesophageal Reflux, Diverticulosis, Polyps, Ulcer, Irritable Bowel Degenerate Disk Disease, Arthritis, Chronic Back Pain, Fractures Hypothyroidsim, Diabetes, Non-Insulin dep Breast Did You Recieve Any Treatments: Yes What Type of Treatment Did You: Surgical Intervention Anxiety Blood Disorders: No Adverse Reaction/Blood Tranf: No Family Medical History Cardiovascular disease 19 FATHER, Onset:Unknown Completed stroke 19 FATHER, Onset:Unknown Congenital heart disease Dementia 19 FATHER, Onset:Unknown Diabetes mellitus 19 FATHER, Onset:Unknown FH: COPD (chronic obstructive pulmonary disease) 19 MOTHER, Onset:Unknown Hypertension 19 FATHER, Onset:Unknown Myocardial infarction 19 FATHER, Onset:Unknown Thyroid disease 19 MOTHER, Onset:Unknown No Pertinent Family Hx Review of Systems Constitutional: fever, weakness Respiratory: no symptoms reported Cardiovascular: no symptoms reported Gastrointestinal: no symptoms reported Physical Exam Physical Exam Vital Signs Vital Signs - First Documented 11/06/22 11/07/22 11/07/22 21:35 01:21 01:33 Temp 38.3 Pulse 101 Resp 17 B/P (MAP) 137/68 (91) Pulse Ox 97 O2 Delivery Room Air FiO2 21 Capillary Refill : Less Than 3 Seconds Height, Weight, BMI Height: 5'3.00" Weight: 285lbs. 0.0oz. 129.260592ju; 51.95 BMI Method:Stated General Appearance: No Apparent Distress, Obese HEENT: PERRL/EOMI, Pharynx Normal Neck: Normal Inspection, Supple Respiratory: Lungs Clear, Normal Breath Sounds, No Respiratory Distress Cardiovascular: Regular Rate, Rhythm, No Murmur Gastrointestinal: Normal Bowel Sounds, Soft, Other (redness in pannus and under breasts with foul odor) Extremity: No Non Tender; Inflammation (right lateral dorsal foot), Swelling Neurologic/Psychiatric: Alert, Normal Mood/Affect Skin: Erythema (right foot) Results Results/Procedures Labs Laboratory Tests 11/06/22 21:52 11/06/22 21:57 11/07/22 05:20 Patient resulted labs reviewed. Imaging: Reviewed Imaging Report Assessment/Plan Admission Diagnosis Sepsis due to cellulitis Admission Status: Inpatient Order (span 2 midnights) Reason for Inpatient Admission: IV antibiotics Assessment and Plan Sepsis due to cellulitis of right foot IV antibiotics Improving Candidal intertrigo Miconazole HTN T2DM GERD Fibromyalgia Raynaud's Super obesity Continue home meds Diagnosis/Problems Diagnosis/Problems (1) Sepsis Status: Acute Qualifiers: Sepsis type: sepsis due to unspecified organism Sepsis acute organ dysfunction status: without acute organ dysfunction Qualified Codes: A41.9 - Sepsis, unspecified organism (2) Cellulitis of right foot Status: Acute (3) Cellulitis Status: Acute Qualifiers: Site of cellulitis: extremity Site of cellulitis of extremity: lower extremity Laterality: right Qualified Codes: L03.115 - Cellulitis of right lower limb (4) Candidal intertrigo (5) HTN (hypertension) Status: Chronic (6) T2DM (type 2 diabetes mellitus) Status: Chronic (7) Fibromyalgia Status: Chronic (8) Super obesity Status: Chronic STEPHANIE HENDRICKS MD Nov 07, 2022 16:51
[2022-11-07] MEDS ORDERED: NON-FORMULARY MEDICATION 1 EA EA (Irbesartan 150 MG) PO SCH (21:00)
[2022-11-07] MEDS ORDERED: NON-FORMULARY MEDICATION 1 EA EA (Propranolol HCl 40 MG) PO SCH (21:00)
[2022-11-07] MEDS ORDERED: NON-FORMULARY MEDICATION 1 EA EA (Budesonide/Glycopyr/Formoterol (Breztri Aerosphere Inhal INH SCH (21:00)
[2022-11-07] MEDS ORDERED: NON-FORMULARY MEDICATION 1 EA EA (Escitalopram Oxalate 10 MG) PO SCH (21:00)
[2022-11-07] MEDS: LOSARTAN 50 MG (COZAAR) TAB PO SCH (21:26)
[2022-11-07] MEDS: CELECOXIB 100 MG (CeleBREX) CAP PO SCH (21:26)
[2022-11-07] MEDS: CYCLOBENZAPRINE 10 MG (FLEXERIL) TAB PO SCH (21:26)
[2022-11-07] MEDS: FAMOTIDINE 20 MG (PEPCID) TABLET PO SCH (21:26)
[2022-11-08] VITALS (7 sets, daily range): BP systolic 109–165; BP diastolic 53–76
[2022-11-08] MEDS: AZTREONAM 2 GM/NS 100 ML IVPB IV SCH ×6 (01:41→18:01)
[2022-11-08] MEDS: VANCOMYCIN 1500MG/300ML PREMIX IV SCH (02:16)
[2022-11-08 05:54] LABS: BASOPHILS # (AUTO) 0.1 10^3/uL (0.0-0.1); BASOPHILS % (AUTO) 0 % (0-10); EOSINOPHILS # (AUTO) 0.6 10^3/uL (0.0-0.3); EOSINOPHILS % (AUTO) 4 % (0-10); HEMATOCRIT 36 % (35-52); HEMOGLOBIN 11.1 g/dL (11.5-16.0); LYMPHOCYTES # (AUTO) 2.5 10^3/uL (1.0-4.0); LYMPHOCYTES % (AUTO) 17 % (12-44); MEAN CORPUSCULAR HEMOGLOBIN 28 pg (25-34); MEAN CORPUSCULAR HGB CONC 31 g/dL (32-36); MEAN CORPUSCULAR VOLUME 89 fL (80-99); MONOCYTES # (AUTO) 1.5 10^3/uL (0.0-1.0); MONOCYTES % (AUTO) 10 % (0-12); NEUTROPHILS # (AUTO) 10.2 10^3/uL (1.8-7.8); NEUTROPHILS % (AUTO) 68 % (42-75); PLATELET COUNT 319 10^3/uL (130-400)
[2022-11-08] MEDS: CATHETER FLUSH 10 ML SYR IVP SCH ×3 (06:09→20:20)
[2022-11-08] MEDS: CYCLOBENZAPRINE 10 MG (FLEXERIL) TAB PO SCH ×3 (06:09→20:19)
[2022-11-08] MEDS: metFORMIN XR 500 MG (GLUCOPHAGE XR) TAB PO SCH ×2 (06:09→16:34)
[2022-11-08 06:13] LABS: CALCIUM 9.6 MG/DL (8.5-10.1); CREATININE SERUM 1.11 MG/DL (0.60-1.30); POTASSIUM 3.9 MMOL/L (3.6-5.0)
[2022-11-08] MEDS: TIOTROPIUM INH 4 GM (SPIRIVA Respimat) IH SCH (07:19)
[2022-11-08] MEDS: FLUTICASONE/VILANTEROL 100 MCG 14'S (BREO) IH SCH (07:19)
[2022-11-08] MEDS: amLODIPine 5 MG (NORVASC) TAB PO SCH (10:06)
[2022-11-08] MEDS: CELECOXIB 100 MG (CeleBREX) CAP PO SCH (10:06)
[2022-11-08] MEDS: AtorvaSTATin TABLET 10 MG TABLET PO SCH (10:07)
[2022-11-08] MEDS: ASPIRIN 81 MG CHEW (CHILDREN'S ASA) PO SCH (10:07)
[2022-11-08] MEDS: MONTELUKAST 10 MG (SINGULAIR) TAB PO SCH (10:07)
[2022-11-08] MEDS: FAMOTIDINE 20 MG (PEPCID) TABLET PO SCH ×2 (10:07→20:19)
[2022-11-08] MEDS: MICONAZOLE 2% POWDER (DESENEX AF) 90 GM TOP SCH ×2 (10:09→20:20)
[2022-11-08] MEDS: PROPRANOLOL 20 MG (INDERAL) TABLET PO SCH ×2 (10:39→20:19)
[2022-11-08] MEDS ORDERED: BECL10.62 IH (11:38)
[2022-11-08] MEDS ORDERED: AMLO-250 PO (11:38)
[2022-11-08] MEDS ORDERED: AZEL205.10 NS (11:38)
[2022-11-08] MEDS ORDERED: MAGN250T31 PO (11:38)
[2022-11-08] MEDS ORDERED: FERR-84 PO (11:38)
[2022-11-08] MEDS ORDERED: ALPR1TAB7 PO (11:38)
[2022-11-08] MEDS ORDERED: DULA0.75 SQ (11:38)
--- NOTE | 2022-11-08 11:46 | Physical Therapy Evaluation ---
PT Evaluation-General Medical Diagnosis Admission Date Nov 07, 2022 at 08:48 Medical Diagnosis: cellulitis/DM Onset Date: Nov 07, 2022 Therapy Diagnosis Therapy Diagnosis: debilityi Height/Weight Height (Feet): 5 Height (Inches): 3.00 Weight (Pounds): 285 Weight (Ounces): 0.0 Precautions Precautions/Isolations: Fall Prevention, Standard Precautions Referral Physician: Sujatha Reason for Referral: Evaluation/Treatment Medical History Pertinent Medical History: DM, GERD, HTN Current History ER secondary to right LE pain and yeast under panus Reviewed History: Yes Social History Home: Single Level Current Living Status: Children Prior Prior Level of Function SCALE: Activities may be completed with or without assistive devices. 2-Dgncjyfbig-qqdzkex completes the activity by him/herself with no assistance from a helper. 5-Set-up or Clean-up Assistance-helper sets up or cleans up; patient completes activity. [place] assists only prior to or following the activity. 4-Supervision or Touching Assistance-helper provides verbal cues and/or touching/steadying and/or contact guard assistance as patient completes activity. Assistance may be provided throughout the activity or intermittently. 3-Partial/Moderate Assistance-helper does LESS THAN HALF the effort. [place] lifts, holds or supports trunk or limbs, but provides less than half the effort. 2-Substantial/Maximal Assistance-helper does MORE THAN HALF the effort. [place] lifts or holds trunk or limbs and provides more than half the effort. 3-Vmwuygmxf-ugpzkz does ALL the effort. Patient does none of the effort to complete the activity. Or, the assistance of 2 or more helpers is required for the patient to complete the activity. If activity was not attempted, code reason: 7-Patient Refused. 9-Not Applicable-not attempted and the patient did not perform the activity before the current illness, exacerbation or injury. 10-Not Attempted due to Environmental Limitations-(lack of equipment, weather restraints, etc.). 88-Not Attempted due to Medical Conditions or Safety Concerns. Bed Mobility: 6 Transfers (B,C,W/C): 6 Gait: 6 Stairs: 9 Indoor Mobility (Ambulation): Independent Prior Devices Use: Walker PT Evaluation-Current Subjective Patient agrees to PT. Objective Patient Orientation: Normal For Age ROM/Strength ROM Lower Extremities bilateral LE WFL Strength Lower Extremities 4-/5 grossly bilateral LE all planes Integumentary/Posture Bowel Incontinence: No Bladder Incontinence: No Posture WFL Neuromuscular (Tone, Coordination, Reflexes) grossly intact Sensory Vision: Functional Hearing: Functional Transfers Sit to Stand (QC): 6 Chair/Myy-qh-Comwt Xfer(QC): 6 Gait Mode of Locomotion: Walk Anticipated Mode of Locomotion: Walk Walk 10 feet (QC): 5 Walk 50 ft with 2 Turns(QC): 5 Walk 150 ft (QC): 5 Distance: 225' Gait Assistive Device: FWW Comments/Gait Description steady gait sequence with education on step to leading with right and utilizing bilateral UE's with FWW use to offset weight right LE due to discomfort. Balance Sitting Static: Normal Sitting Dynamic: Normal Standing Static: Normal Standing Dynamic: Normal Assessment/Needs Patient is currently at [facility] with all gross motor skills safely and does not require skilled PT intervention at this time. RN present and aware. Rehab Potential: Fair PT Plan Treatment/Plan Treatment Plan: Discontinue PT Treatment Duration: Nov 08, 2022 Frequency: 1 time per week Estimated Hrs Per Day: .25 hour per day Patient and/or Family Agrees t: Yes Time Time In: 955 Time Out: 1009 DATE: Nov 08, 2022 Total Billed Treatment Time: 14 Total Billed Treatment 1 visit EVMod 14 min DARLENE LOZA PT Nov 08, 2022 11:46
--- NOTE | 2022-11-08 13:32 | Progress Note - Hospitalist ---
Subjective HPI/CC On Admission Date Seen by Provider: Nov 08, 2022 Christa Sandoval is a 56 year old female with PMH HTN, T2DM, super obesity, fibromyalgia, gout, Raynaud's, who presented with right foot pain. She reports pain and swelling for a couple days. She was also having fevers. She reports weakness. She has also had a bad fungal infection on her abdomen. She denies chest pain. She denies shortness of breath. Subjective/Events-last exam Pt reports doing better today. Only complaint is that she hallucinated with Celexa and would like to stop it. Normally takes Lexapro at home. Thinks foot is better. Focused Exam Lactate Level 11/06/22 22:45: Lactic Acid Level 1.11 Time of Focused Exam: 23:00 Objective Exam Vital Signs Vital Signs Date Time Temp Pulse Resp B/P (MAP) Pulse Ox O2 Delivery O2 Flow Rate FiO2 11/08/22 12:00 36.9 69 19 134/76 (95) 95 Room Air 11/07/22 01:33 21 Capillary Refill : Less Than 3 Seconds General Appearance: No Apparent Distress, Chronically ill, Obese Respiratory: Lungs Clear, No Respiratory Distress Cardiovascular: Regular Rate, Rhythm, No Murmur Extremity: Other (very minimal erythema on thr anterior aspect of her right foot- reportedly much improved per patient) Neurologic/Psychiatric: Alert, Oriented x3, Normal Mood/Affect Results/Procedures Lab Laboratory Tests 11/08/22 05:18 Patient resulted labs reviewed. Imaging: Reviewed Imaging Report Assessment/Plan Assessment and Plan Assess & Plan/Chief Complaint Sepsis due to cellulitis of right foot Bacteremia IV antibiotics Improving Await sensitivities on blood cultures PT/OT Candidal intertrigo Miconazole HTN T2DM GERD Fibromyalgia Raynaud's Super obesity Continue home meds LACEY LEE MD Nov 08, 2022 13:32
[2022-11-08] MEDS ORDERED: ALPRAZolam 0.5 MG (XANAX) TAB PO PRN (14:15)
--- NOTE | 2022-11-08 15:31 | Occupational Therapy Eval ---
OT Evaluation-General/PLF Medical Diagnosis Admission Date Nov 07, 2022 at 08:48 Medical Diagnosis: cellulitis/DM Onset Date: Nov 07, 2022 Therapy Diagnosis Therapy Diagnosis: pain with mobilty Height/Weight Height (Feet): 5 Height (Inches): 3.00 Weight (Pounds): 285 Weight (Ounces): 0.0 Precautions Precautions/Isolations: Fall Prevention, Standard Precautions Referral Physician: Sujatha Referral Reason: Activity Tolerance, Self Care, Evaluation/Treatment Medical History Pertinent Medical History: DM, GERD, HTN Additional Medical History 56 year old female with PMH HTN, T2DM, super obesity, fibromyalgia, gout, Raynaud's, who presented with right foot pain. She reports pain and swelling for a couple days. She was also having fevers. She reports weakness. She has also had a bad fungal infection on her abdomen. She denies chest pain. She denies shortness of breath. Current History Pain is resolving and does not restrict ADLS, inhibits mobility distances only, Social History Home: Single Level Current Living Status: Children Entry Into Home: Stairs With Railing Steps Into Home: 2 Steps Inside Home: 1 (both BR are step down, BA is a step up) ADL-Prior Level of Function SCALE: Activities may be completed with or without assistive devices. 6-Tlafssueys-fdmkaby completes the activity by him/herself with no assistance from a helper. 5-Set-up or Clean-up Assistance-helper sets up or cleans up; patient completes activity. [place] assists only prior to or following the activity. 4-Supervision or Touching Assistance-helper provides verbal cues and/or touching/steadying and/or contact guard assistance as patient completes activity. Assistance may be provided throughout the activity or intermittently. 3-Partial/Moderate Assistance-helper does LESS THAN HALF the effort. [place] lifts, holds or supports trunk or limbs, but provides less than half the effort. 2-Substantial/Maximal Assistance-helper does MORE THAN HALF the effort. [place] lifts or holds trunk or limbs and provides more than half the effort. 7-Mglndqzan-yfwlcz does ALL the effort. Patient does none of the effort to complete the activity. Or, the assistance of 2 or more helpers is required for the patient to complete the activity. If activity was not attempted, code reason: 7-Patient Refused. 9-Not Applicable-not attempted and the patient did not perform the activity before the current illness, exacerbation or injury. 10-Not Attempted due to Environmental Limitations-(lack of equipment, weather restraints, etc.). 88-Not Attempted due to Medical Conditions or Safety Concerns. ADL PLOF Comments Patient lives with 29 y/o old daughter, daughter does not drive. 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 Rarely goes outside Drive Self: Yes OT Current Status Subjective Agrees to OT, does not believe her foot pain enables her ADL ability , it is just painful but feeling better Pain Numeric Pain Scale: 3 Location Body Site: Foot Mental Status/Objective Patient Orientation: Person, Place, Time, Situation Current Upper Extremity ROM BUE ROM WFLS Upper Extremity Coordination INTACT Upper Extremity Strength WFLS ADL-Treatment Eating (QC): 6 Oral Hygiene (QC): 6 Shower/Bathe Self (QC): 7 Upper Body Dressing (QC): 6 Lower Body Dressing (QC): 6 On/Off Footwear (QC): 6 Toileting Hygiene (QC): 6 Education OT Patient Education: Energy conservation, Home exercise program, Progress toward Goal/Update tx plan, Purpose of tx/functional activities, Reviewed precautions, Rehab process, Safety issues, Transfer techniques, Use of adapted equipment Teaching Recipient: Patient Teaching Methods: Discussion Response to Teaching: Return Demonstration OT Longterm Goals Longterm Goals 1=Demonstrate adherence to instructed precautions during ADL tasks. 2=Patient will verbalize/demonstrate understanding of assistive devices/modifications for ADL. 3=Patient will improve strength/tolerance for activity to enable patient to perform ADL's. OT Education/Plan Problem List/Assessment Assessment: No Skilled OT Needs ID'd Discharge Recommendations Plan/Recommendations: Discontinue OT Treatment Plan/Plan of Care Treatment,Training & Education: No Patient would benefit from OT for education, treatment and training to promote independence in ADL's, mobility, safety and/or upper extremity function for ADL's. Plan of Care: OTHER (EVAL ONLY) Treatment Duration: Nov 08, 2022 Frequency: 1 time per week Estimated Hrs Per Day: .25 hour per day Agreement: Yes Rehab Potential: Fair ALL needs met Time Start Time: 15:00 Stop Time: 15:18 DATE: Nov 08, 2022 Total Time Billed (hr/min): 18 Billed Treatment Time EVM 18 min LEONIDAS JACK OT Nov 08, 2022 15:31
[2022-11-08] MEDS: NYSTATIN ORAL SUSP 5 ML UDC PO SCH ×2 (18:20→23:22)
[2022-11-08] MEDS: LOSARTAN 50 MG (COZAAR) TAB PO SCH (20:19)
[2022-11-09] MEDS ORDERED: TROUGH ORDER-PHARMACY XX ONE
[2022-11-09] MEDS: CATHETER FLUSH 10 ML SYR IVP SCH ×2 (01:03→14:12)
[2022-11-09] MEDS: AZTREONAM 2 GM/NS 100 ML IVPB IV SCH ×4 (01:03→10:09)
[2022-11-09] MEDS: VANCOMYCIN 1500MG/300ML PREMIX IV SCH (01:49)
[2022-11-09] MEDS: NYSTATIN ORAL SUSP 5 ML UDC PO SCH ×2 (05:14→12:11)
[2022-11-09] MEDS: CYCLOBENZAPRINE 10 MG (FLEXERIL) TAB PO SCH ×2 (05:35→14:13)
[2022-11-09] MEDS: metFORMIN XR 500 MG (GLUCOPHAGE XR) TAB PO SCH (05:35)
[2022-11-09] MEDS: TIOTROPIUM INH 4 GM (SPIRIVA Respimat) IH SCH (07:13)
[2022-11-09] MEDS: FLUTICASONE/VILANTEROL 100 MCG 14'S (BREO) IH SCH (07:14)
[2022-11-09 07:32] VITALS: BP 142/83
[2022-11-09] MEDS: PROPRANOLOL 20 MG (INDERAL) TABLET PO SCH (08:31)
[2022-11-09] MEDS: amLODIPine 5 MG (NORVASC) TAB PO SCH (08:32)
[2022-11-09] MEDS: AtorvaSTATin TABLET 10 MG TABLET PO SCH (08:32)
[2022-11-09] MEDS: FAMOTIDINE 20 MG (PEPCID) TABLET PO SCH (08:32)
[2022-11-09] MEDS: MONTELUKAST 10 MG (SINGULAIR) TAB PO SCH (08:32)
[2022-11-09] MEDS: ASPIRIN 81 MG CHEW (CHILDREN'S ASA) PO SCH (08:32)
[2022-11-09] MEDS: MICONAZOLE 2% POWDER (DESENEX AF) 90 GM TOP SCH (08:36)
[2022-11-09 10:37] LABS: HEMATOCRIT 34 % (35-52); HEMOGLOBIN 10.6 g/dL (11.5-16.0); MEAN CORPUSCULAR HEMOGLOBIN 28 pg (25-34); MEAN CORPUSCULAR HGB CONC 31 g/dL (32-36); MEAN CORPUSCULAR VOLUME 88 fL (80-99); MEAN PLATELET VOLUME 10.8 fL (9.0-12.2); PLATELET COUNT 365 10^3/uL (130-400); WHITE BLOOD COUNT 12.2 10^3/uL (4.3-11.0)
[2022-11-09 10:46] LABS: POTASSIUM 4.2 MMOL/L (3.6-5.0)
[2022-11-09 10:47] LABS: CALCIUM 9.6 MG/DL (8.5-10.1)
[2022-11-09 10:52] LABS: CREATININE SERUM 1.03 MG/DL (0.60-1.30)
[2022-11-09 11:22] LABS: BILIRUBIN,URINE NEGATIVE (NEGATIVE); CLARITY,URINE CLEAR; COLOR,URINE YELLOW; GLUCOSE, URINE (UA) NEGATIVE (NEGATIVE); KETONES,URINE NEGATIVE (NEGATIVE); LEUKOCYTE ESTERASE ,URINE NEGATIVE (NEGATIVE); NITRITE,URINE NEGATIVE (NEGATIVE); PH,URINE 5.5 (5-9); PROTEIN,URINE NEGATIVE (NEGATIVE)
[2022-11-09 11:31] LABS: BACTERIA,URINE TRACE /HPF
--- NOTE | 2022-11-09 13:31 | D/C HH Face to Face Order ---
D/C Face to Face Orders Instructions for Patient Via [facility], Patient Instructions/FollowUp: Please continue to take your medications as written. Please follow up with your primary care doctor to follow up this hospital stay. Physician to follow Patient: Dr Clemons Discharge Diet for Home: Cardiac Diet Patient Data-Allergies,Ht & Wt Patient Allergies: Coded Allergies: Penicillins (Unverified Allergy, Severe, HIVES, THROAT SWELLS, DIFFICULTY BREATHING, 02/10/07) hydrocodone (Verified Allergy, Intermediate, "MAKES HER FEEL VERY BAD", 12/15/15) latex (Verified Allergy, Mild, RASH, 11/07/15) Cephalosporins (Unverified Allergy, Unknown, 12/16/15) celecoxib (Unverified Allergy, Unknown, 11/08/15) empagliflozin (Verified Allergy, Unknown, 02/05/21) meropenem (Verified Allergy, Unknown, Itching, 11/07/22) itching and throat swelling tree nut (Unverified Allergy, Unknown, 10/08/21) Uncoded Allergies: TAPE (Adverse Reaction, Mild, RASH, WHELPS ON SKIN WHERE TAPE WAS., 02/10/07) Height (Feet): 5 Height (Inches): 3.00 Weight (Pounds): 285 Weight (Ounces): 0.0 Home Health Need/Face to Face Date of Face to Face: Nov 09, 2022 Clinical Findings: Generalized weakness and fatigue, Pain with ambulation I have seen Pt [id number]: Yes Discharged To: Home Diagnosis/Conditions: Cellulitis, sepsis Patient is Homebound due to: Muscle weakness, Pain w/ambulation Homebound Status Due to the above stated illness, injury or surgical procedure (medical condition or diagnosis) and associated clinical findings, the patient is homebound because of his/her inability to leave home except with aid of a supportive device and/or person AND leaving the home requires a considerable and taxing effort or is medically contraindicated. Pt req the following assistanc: Aid of another person, Walker Home Health Nursing Orders Home Health Services Order: Nursing Services Med set up, wound care of [facility] Infusion Therapy Line Start Date: Nov 06, 2022 Certify Stmt I certify that this patient is under my care and that I, a nurse practitioner or a physician; a catering administrative assistant working with me, had a face to face encounter that - meets the physician face to face encounter requirements with this patient as dated. LACEY LEE MD Nov 09, 2022 13:31
[2022-11-09] MEDS ORDERED: FLUC100T PO (13:36)
[2022-11-09] MEDS ORDERED: LEVO750T PO (13:39)
[2022-11-09 15:00] VITALS: BP 142/83
--- NOTE | 2022-11-09 15:21 | Discharge Summary ---
Diagnosis/Chief Complaint Date of Admission Nov 07, 2022 at 08:48 Date of Discharge Nov 09, 2022 at 15:08 Discharge Date: Nov 09, 2022 Admission Diagnosis Sepsis due to cellulitis Primary Care Jasvir Clemons MD Discharge Diagnosis (1) Sepsis Status: Acute (2) Cellulitis of right foot Status: Acute (3) Cellulitis Status: Acute (4) Candidal intertrigo (5) HTN (hypertension) Status: Chronic (6) T2DM (type 2 diabetes mellitus) Status: Chronic (7) Fibromyalgia Status: Chronic (8) Super obesity Status: Chronic Discharge Summary Discharge Physical Exam Allergies: Coded Allergies: Penicillins (Unverified Allergy, Severe, HIVES, THROAT SWELLS, DIFFICULTY BREATHING, 02/10/07) hydrocodone (Verified Allergy, Intermediate, "MAKES HER FEEL VERY BAD", 12/15/15) latex (Verified Allergy, Mild, RASH, 11/07/15) Cephalosporins (Unverified Allergy, Unknown, 12/16/15) celecoxib (Unverified Allergy, Unknown, 11/08/15) empagliflozin (Verified Allergy, Unknown, 02/05/21) meropenem (Verified Allergy, Unknown, Itching, 11/07/22) itching and throat swelling tree nut (Unverified Allergy, Unknown, 10/08/21) Uncoded Allergies: TAPE (Adverse Reaction, Mild, RASH, WHELPS ON SKIN WHERE TAPE WAS., 02/10/07) Vitals & I&Os Vital Signs Date Time Temp Pulse Resp B/P (MAP) Pulse Ox O2 Delivery O2 Flow Rate FiO2 11/09/22 15:00 36.3 70 18 142/83 98 Room Air 11/07/22 01:33 21 Hospital Course Labs (last 24 hrs) Laboratory Tests 11/08/22 15:22: Glucometer 129H 11/08/22 20:19: Glucometer 154H 11/09/22 00:22: Vancomycin Level Trough 16.9 11/09/22 05:14: Glucometer 128H 11/09/22 10:00: Urine Color YELLOW, Urine Clarity CLEAR, Urine pH 5.5, Urine Specific [place] 1.010L, Urine Protein NEGATIVE, Urine Glucose (UA) NEGATIVE, Urine Ketones NEGATIVE, Urine Nitrite NEGATIVE, Urine Bilirubin NEGATIVE, Urine Urobilinogen 0.2, Urine Leukocyte Esterase NEGATIVE, Urine RBC (Auto) NEGATIVE, Urine RBC NONE, Urine WBC NONE, Urine Squamous Epithelial Cells 2-5, Urine Crystals NONE, Urine Bacteria TRACE, Urine Casts NONE, Urine Mucus NEGATIVE, Urine Culture Indicated NO 11/09/22 10:25: White Blood Count 12.2H, Red Blood Count 3.86, Hemoglobin 10.6L, Hematocrit 34L, Mean Corpuscular Volume 88, Mean Corpuscular Hemoglobin 28, Mean Corpuscular Hemoglobin Concent 31L, Red Cell Distribution Width 13.2, Platelet Count 365, Mean Platelet Volume 10.8, Sodium Level 138, Potassium Level 4.2, Chloride Level 105, Carbon Dioxide Level 22, Anion Gap 11, Blood Urea Nitrogen 27H, Creatinine 1.03, Estimat Glomerular Filtration Rate 63, BUN/Creatinine Ratio 26, Glucose Level 128H, Calcium Level 9.6 11/09/22 10:43: Glucometer 118H Microbiology 11/06/22 Blood Culture - Final, Complete Staphylococcus epidermidis See Comments Patient resulted labs reviewed. Pending Labs Laboratory Tests 11/09/22 10:00: Urine Color YELLOW, Urine Clarity CLEAR, Urine pH 5.5, Urine Specific [place] 1.010, Urine Protein NEGATIVE, Urine Glucose (UA) NEGATIVE, Urine Ketones NEGATIVE, Urine Nitrite NEGATIVE, Urine Bilirubin NEGATIVE, Urine Urobilinogen 0.2, Urine Leukocyte Esterase NEGATIVE, Urine RBC (Auto) NEGATIVE, Urine RBC NONE, Urine WBC NONE, Urine Squamous Epithelial Cells 2-5, Urine Crystals NONE, Urine Bacteria TRACE, Urine Casts NONE, Urine Mucus NEGATIVE, Urine Culture Indicated NO 11/09/22 10:25: White Blood Count 12.2, Red Blood Count 3.86, Hemoglobin 10.6, Hematocrit 34, Mean Corpuscular Volume 88, Mean Corpuscular Hemoglobin 28, Mean Corpuscular Hemoglobin Concent 31, Red Cell Distribution Width 13.2, Platelet Count 365, Mean Platelet Volume 10.8, Sodium Level 138, Potassium Level 4.2, Chloride Level 105, Carbon Dioxide Level 22, Anion Gap 11, Blood Urea Nitrogen 27, Creatinine 1.03, Estimat Glomerular Filtration Rate 63, BUN/Creatinine Ratio 26, Glucose Level 128, Calcium Level 9.6 11/09/22 10:43: Glucometer 118 Imaging: Reviewed Imaging Report Discharge Home Medications: Active Scripts Active Levofloxacin 750 Mg Tablet 750 Mg PO DAILY Diflucan (Fluconazole) 100 Mg Tablet 100 Mg PO Q48H Reported Astepro Allergy (Azelastine HCl) 205.5 Mcg (0.15 %) [place].pump 1 [place] NS DAILY Magnesium 250 Mg Tablet 500 Mg PO DAILY Iron (Ferrous Sulfate) 325 Mg (65 Mg Iron) Tablet 325 Mg PO Q48H Amlodipine Besylate 5 Mg Tablet 5 Mg PO DAILY PRN Alprazolam 1 Mg Tablet 1 Mg PO BID PRN Trulicity (Dulaglutide) 0.75 Mg/0.5 Ml Pen.injctr 0.75 Mg SQ TUESDAY Qvar Redihaler (Beclomethasone Dipropionate) 80 Mcg/Actuation Hfa.aeroba 2 Puff IH BID Cyclobenzaprine HCl 5 Mg Tablet 5 Mg PO Q8H PRN Atorvastatin Calcium 10 Mg Tablet 10 Mg PO DAILY Montelukast Sodium 10 Mg Tablet 10 Mg PO DAILY Aspirin 81 Mg Tab.chew 81 Mg PO DAILY Celecoxib 100 Mg Capsule 100 Mg PO BID Metformin HCl ER (Metformin HCl) 500 Mg Tab.er.24 500 Mg PO BID Breztri Aerosphere Inhaler (Budesonide/Glycopyr/Formoterol) 160 Mcg-9 Mcg-4.8 Mcg/Actuation Hfa.aer.ad 2 Puff INH BID Famotidine 20 Mg Tablet 20 Mg PO BID Irbesartan 150 Mg Tablet 150 Mg PO HS Escitalopram Oxalate 10 Mg Tablet 10 Mg PO HS Ventolin Hfa (Albuterol Sulfate) 1 Puff Puff 1 Puff INH Q8H PRN Propranolol HCl 40 Mg Tablet 40 Mg PO BID Instructions to patient/family Please see electronic discharge instructions given to patient. Problem Qualifiers (1) Sepsis: Sepsis type: sepsis due to unspecified organism Sepsis acute organ dysfunction status: without acute organ dysfunction Qualified Codes: A41.9 - Sepsis, unspecified organism (2) Cellulitis: Site of cellulitis: extremity Site of cellulitis of extremity: lower extremity Laterality: right Qualified Codes: L03.115 - Cellulitis of right lower limb LACEY LEE MD Nov 09, 2022 15:21
[2022-11-10] MEDS ORDERED: VANCOMYCIN 1250 MG/NS 250 ML PREMIX IV SCH (02:00)
== END 2022-11-09 15:08 | disposition home health service (06) | DRG 872 ==
LOC: EDUNIT# 21:17 → ER 21:20 → 4TH 11-07 00:32 → OBSVTOIN 11-07 08:48
PROVIDERS: ADMIT Internal Medicine; ATTEND Internal Medicine
DX: A41.9 Sepsis, unspecified organism (principal); L03.115 Cellulitis of right lower limb; Z68.43 Body mass index [BMI] 50.0-59.9, adult; B37.2 Candidiasis of skin and nail; E11.9 Type 2 diabetes mellitus without complications; M79.7 Fibromyalgia; E66.01 Morbid (severe) obesity due to excess calories; K21.9 Gastro-esophageal reflux disease without esophagitis; G90.A Postural orthostatic tachycardia syndrome [POTS]; I10 Essential (primary) hypertension; E03.9 Hypothyroidism, unspecified; F41.0 Panic disorder [episodic paroxysmal anxiety]; M10.9 Gout, unspecified; I73.00 Raynaud's syndrome without gangrene; M19.90 Unspecified osteoarthritis, unspecified site; Z86.16 Personal history of COVID-19; Z85.3 Personal history of malignant neoplasm of breast; Z85.528 Personal history of other malignant neoplasm of kidney; Z90.5 Acquired absence of kidney; Z79.82 Long term (current) use of aspirin; Z79.84 Long term (current) use of oral hypoglycemic drugs; Z79.899 Other long term (current) drug therapy; Z88.5 Allergy status to narcotic agent; Z88.0 Allergy status to penicillin; Z91.09 Other allergy status, other than to drugs and biological substances
CPT/HCPCS: 36415; 71045; 80048; 80053; 80202; 81000; 82947; 83605; 85007; 85025; 85027; 85610; 85730; 87040; 87077; 87186; 94640; 94760; G0378

== ENCOUNTER 2022-11-11 02:52 | Inpatient (IN) | payer OTHER ==
[~2022-11-11] VITALS: Ht 160 cm; Wt 129.9 kg
[~2022-11-11 02:52] MED LIST changes: +ASPI-999 PO; +ATOR10TA66 PO; +AZEL205.10 NS; +BECL10.62 IH; +CELE100C84 PO; +CYCL5TAB PO; +DULA0.75 SQ; +FLUC100T PO; +LEVO750T PO; +MAGN250T31 PO; +MONT-40 PO
--- NOTE | 2022-11-11 03:42 | ED Lower Extremity ---
General Stated Complaint: INFECTION ON FOOT SPREADING Source: patient (TALKS NON-STOP AT GREAT LENGTH, DIFFICULT TO OBTAIN HISTORY PT DOES NOT STOP TALKING), old records History of Present Illness Date Seen by Provider: Nov 11, 2022 Time Seen by Provider: 09:33 Initial Comments PT ARRIVES VIA POV FROM HOME PT WAS ADMITTED HERE FROM 11/07-11/09/22 FOR RIGHT FOOT CELLULITIS SHE DID HAVE FEVER OF 101.5 AT THE TIME OF ADMIT. 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 PT REQUESTS THAT THOSE LAB TESTS BE ORDERED AT THIS TIME, SO SHE DOES NOT HAVE TO HAVE IT DONE OUTPATIENT. SHE IS DIABETIC, MORBIDLY OBESE, AND HAS CANDIDAL INFECTION OF THE SKIN OF HER PANNUS. SHE STATES THAT IS BETTER. SHE WAS ALSO DISMISSED HOME ON DIFLUCAN. SHE ALSO HAS HTN, HYPERLIPIDEMIA, AND FIBROMYALGIA. PCP: DR. SUMNER Allergies and Home Medications Allergies Coded Allergies: Penicillins (Unverified Allergy, Severe, HIVES, THROAT SWELLS, DIFFICULTY BREATHING, 02/10/07) hydrocodone (Verified Allergy, Intermediate, "MAKES HER FEEL VERY BAD", 12/15/15) latex (Verified Allergy, Mild, RASH, 11/07/15) Cephalosporins (Unverified Allergy, Unknown, 12/16/15) celecoxib (Unverified Allergy, Unknown, 11/08/15) empagliflozin (Verified Allergy, Unknown, 02/05/21) meropenem (Verified Allergy, Unknown, Itching, 11/07/22) itching and throat swelling tree nut (Unverified Allergy, Unknown, 10/08/21) Uncoded Allergies: TAPE (Adverse Reaction, Mild, RASH, WHELPS ON SKIN WHERE TAPE WAS., 02/10/07) Patient Home Medication List Home Medication List Reviewed: Yes Albuterol Sulfate (Ventolin Hfa) 1 Puff Puff, 1 PUFF INH Q8H PRN for SHORTNESS OF BREATH, (Reported) Entered as Reported by: WALTER VALENTINE on 07/21/20 1505 Alprazolam (Alprazolam) 1 Mg Tablet, 1 MG PO BID PRN for ANXIETY, (Reported) Entered as Reported by: CECI GARZON on 11/08/22 1138 Amlodipine Besylate (Amlodipine Besylate) 5 Mg Tablet, 5 MG PO DAILY PRN for BLOOD PRESSURE, (Reported) Entered as Reported by: CECI GARZON on 11/08/22 113 Aspirin (Aspirin) 81 Mg Tab.chew, 81 MG PO DAILY, (Reported) Entered as Reported by: PETER TENORIO on 11/07/22 0159 Atorvastatin Calcium (Atorvastatin Calcium) 10 Mg Tablet, 10 MG PO DAILY, (Reported) Entered as Reported by: PETER TENORIO on 11/07/22 0300 Azelastine HCl (Astepro Allergy) 205.5 Mcg (0.15 %) [place].pump, 1 SPRAY NS DAILY, (Reported) Entered as Reported by: CECI GARZON on 11/08/22 1138 Beclomethasone Dipropionate (Qvar Redihaler) 80 Mcg/Actuation Hfa.aeroba, 2 PUFF IH BID, (Reported) Entered as Reported by: CECI GARZON on 11/08/22 1138 Budesonide/Glycopyr/Formoterol (Breztri Aerosphere Inhaler) 160 Mcg-9 Mcg-4.8 Mcg/Actuation Hfa.aer.ad, 2 PUFF INH BID, (Reported) Entered as Reported by: DUSTIN DAVILA on 10/05/21 1424 Celecoxib (Celecoxib) 100 Mg Capsule, 100 MG PO BID, (Reported) Entered as Reported by: PETER TENORIO on 11/07/22 0159 Cyclobenzaprine HCl (Cyclobenzaprine HCl) 5 Mg Tablet, 5 MG PO Q8H PRN for MUS CORNELIO SPASMS, (Reported) Entered as Reported by: PETER TENORIO on 11/07/22 0300 Dulaglutide (Trulicity) 0.75 Mg/0.5 Ml Pen.injctr, 0.75 MG SQ TUESDAY, (Reported) Entered as Reported by: CECI GARZON on 11/08/22 1138 Escitalopram Oxalate (Escitalopram Oxalate) 10 Mg Tablet, 10 MG PO HS, (Reported) Entered as Reported by: ERINN CERDA on 02/26/21 1603 Famotidine (Famotidine) 20 Mg Tablet, 20 MG PO BID, (Reported) Entered as Reported by: DUSTIN DAVILA on 10/05/21 1424 Ferrous Sulfate (Iron) 325 Mg (65 Mg Iron) Tablet, 325 MG PO Q48H, (Reported) Entered as Reported by: CECI GARZON on 11/08/22 1138 Fluconazole (Diflucan) 100 Mg Tablet, 100 MG PO Q48H Prescribed by: LACEY LEE on 11/09/22 1336 Irbesartan (Irbesartan) 150 Mg Tablet, 150 MG PO HS, (Reported) Entered as Reported by: KADEN LAMB on 10/04/21 2130 Levofloxacin (Levofloxacin) 750 Mg Tablet, 750 MG PO DAILY Prescribed by: LACEY LEE on 11/09/22 1339 Magnesium (Magnesium) 250 Mg Tablet, 500 MG PO DAILY, (Reported) Entered as Reported by: CECI GARZON on 11/08/22 1138 Metformin HCl (Metformin HCl ER) 500 Mg Tab.er.24, 500 MG PO BID, (Reported) Entered as Reported by: DUSTIN DAVILA on 10/05/21 1424 Montelukast Sodium (Montelukast Sodium) 10 Mg Tablet, 10 MG PO DAILY, (Reported) Entered as Reported by: PETER TENORIO on 11/07/22 0215 Propranolol HCl (Propranolol HCl) 40 Mg Tablet, 40 MG PO BID, (Reported) Entered as Reported by: SILVANO APONTE on 12/15/15 0846 Review of Systems Constitutional: no symptoms reported Respiratory: no symptoms reported Cardiovascular: no symptoms reported Gastrointestinal: no symptoms reported Genitourinary: no symptoms reported Musculoskeletal: see HPI Skin: see HPI Psychiatric/Neurological: No Symptoms Reported Past Uassyqr-Losvtw-Owsbvh Hx Patient Social History Tobacco Use?: No Substance use?: No Alcohol Use?: No Immunizations Up To Date Tetanus Booster (TDap): Unknown First/Initial COVID19 Vaccinat: NO Second COVID19 Vaccination Cesario: NO Third COVID19 Vaccination Date: NO Seasonal Allergies Seasonal Allergies: Yes Past Medical History Surgery/Hospitalization HX: dm, neck/back pain, htn, gerd, FIBRO, LONG COVID, POTS Surgeries: Yes (SURGERY ON BOILS, HEMORRHOIDECTOMY, TUMOR REMOVED FROM L KIDNEY) Abdominal, Section, Gallbladder, Hysterectomy, Oophorectomy, Rectal, Renal Respiratory: Yes ("EXERCISE INDUCED ASTHMA", COVID-01 August 2020) Asthma, Pneumonia, Chronic Bronchitis Currently Using CPAP: No Currently Using BIPAP: No Cardiac: Yes Angina, High Cholesterol, Hypertension, Palpitations Neurological: No 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 Disorders: No DOCUMENTATION LIAISON History: Hysterectomy Sexually Transmitted Disease: No Genitourinary: Yes (left renal CA; partial nephroectomy) Kidney Infection, Kidney Stones Gastrointestinal: Yes (Fatty Liver Disease, UMBILICAL HERNIA) Gastroesophageal Reflux, Diverticulosis, Polyps, Ulcer, Irritable Bowel Musculoskeletal: Yes (STENOSIS IN LOWER BACK, OSTEOARTHRITIS, DJD) Degenerate Disk Disease, Arthritis, Chronic Back Pain, Fractures Endocrine: Yes (MORBIDLY OBESE) Hypothyroidsim, Diabetes, Non-Insulin dep HEENT: No Cancer: Yes Kidney Did You Recieve Any Treatments: Yes What Type of Treatment Did You: Surgical Intervention Psychosocial: Yes (PANIC ATTACKS ) Anxiety Integumentary: Yes (CANDIDAL INFECTION OF SKIN OF PANNUS; "BOILS"; R FOOT CELLULITIS) Blood Disorders: No Adverse Reaction/Blood Tranf: No Family Medical History Cardiovascular disease 19 FATHER, Onset:Unknown Completed stroke 19 FATHER, Onset:Unknown Congenital heart disease Dementia 19 FATHER, Onset:Unknown Diabetes mellitus 19 FATHER, Onset:Unknown FH: COPD (chronic obstructive pulmonary disease) 19 MOTHER, Onset:Unknown Hypertension 19 FATHER, Onset:Unknown Myocardial infarction 19 FATHER, Onset:Unknown Thyroid disease 19 MOTHER, Onset:Unknown No Pertinent Family Hx PAST SURGICAL HISTORY: - -HYSTERECTOMY/BILATERAL SALPINGO-OOPHORECTOMY -HEMORRHOIDECTOMY -MULTIPLE I&D'S OF ABSCESSES -PARTIAL LEFT NEPHRECTOMY FOR TUMOR -CHOLECYSTECTOMY Physical Exam Vital Signs Vital Signs - First Documented 11/11/22 03:25 Temp 36.8 Pulse 77 Resp 16 B/P (MAP) 144/77 (99) Pulse Ox 98 O2 Delivery Room Air Capillary Refill : Height, Weight, BMI Height: 5'3.00" Weight: 285lbs. 0.0oz. 129.663668rh; 51.95 BMI Method:Stated General Appearance: WD/WN, no apparent distress, obese (MORBIDLY) Neck: normal inspection Cardiovascular: regular rate, rhythm Respiratory: normal breath sounds Gastrointestinal: non tender Legs: bilateral leg normal inspection Ankles: left ankle normal inspection Feet: right foot infection, right foot pain, right foot soft tissue tenderness, right foot swelling, right foot other (DORSAL AND LATERAL ASPECT OF RIGHT FOOT WITH ERYTHEMA, WARMTH, SWELLING AND TENDERNESS. NO WOUNDS, NO FLUCTUANCE, NO DRAINAGE, NO STREAKS. ) Neurologic/Tendon: normal sensation, normal motor functions, normal tendon functions Neurologic/Psychiatric: no motor/sensory deficits, alert, normal mood/affect, oriented x 3 Skin: normal color, warm/dry, other ( ABOVE) Procedures/Interventions Date of ETT Placement: October 07, 2021 Progress/Results/Core Measures Results/Orders Lab Results Laboratory Tests Test 11/11/22 03:46 11/11/22 03:49 Range/Units Glucometer 115 H 70-110 MG/DL White Blood Count 13.8 H 4.3-11.0 10^3/uL Red Blood Count 4.07 3.80-5.11 10^6/uL Hemoglobin 11.4 L 11.5-16.0 g/dL Hematocrit 35 35-52 % Mean Corpuscular Volume 87 80-99 fL Mean Corpuscular Hemoglobin 28 25-34 pg Mean Corpuscular Hemoglobin Concent 32 32-36 g/dL Red Cell Distribution Width 13.2 10.0-14.5 % Platelet Count 439 H 130-400 10^3/uL Mean Platelet Volume 10.5 9.0-12.2 fL Immature Granulocyte % (Auto) 1 % Neutrophils (%) (Auto) 69 42-75 % Lymphocytes (%) (Auto) 17 12-44 % Monocytes (%) (Auto) 8 0-12 % Eosinophils (%) (Auto) 5 0-10 % Basophils (%) (Auto) 0 0-10 % Neutrophils # (Auto) 9.5 H 1.8-7.8 10^3/uL Lymphocytes # (Auto) 2.4 1.0-4.0 10^3/uL Monocytes # (Auto) 1.1 H 0.0-1.0 10^3/uL Eosinophils # (Auto) 0.6 H 0.0-0.3 10^3/uL Basophils # (Auto) 0.1 0.0-0.1 10^3/uL Immature Granulocyte # (Auto) 0.1 0.0-0.1 10^3/uL Erythrocyte Sedimentation Rate 63 H 0-30 MM/HR Prothrombin Time 13.6 12.2-14.7 SEC INR Comment 1.0 0.8-1.4 Activated Partial Thromboplast Time 31 24-35 SEC Sodium Level 139 135-145 MMOL/L Potassium Level 4.1 3.6-5.0 MMOL/L Chloride Level 106 98-107 MMOL/L Carbon Dioxide Level 21 21-32 MMOL/L Anion Gap 12 5-14 MMOL/L Blood Urea Nitrogen 26 H 7-18 MG/DL Creatinine 1.10 0.60-1.30 MG/DL Estimat Glomerular Filtration Rate 58 BUN/Creatinine Ratio 24 Glucose Level 116 H 70-105 MG/DL Lactic Acid Level 1.09 0.50-2.00 MMOL/L Uric Acid 8.5 H 2.6-7.2 MG/DL Calcium Level 10.1 8.5-10.1 MG/DL Corrected Calcium 10.3 H 8.5-10.1 MG/DL Total Bilirubin 0.2 0.1-1.0 MG/DL Aspartate Amino Transf (AST/SGOT) 26 5-34 U/L Alanine Aminotransferase (ALT/SGPT) 26 0-55 U/L Alkaline Phosphatase 81 40-136 U/L C-Reactive Protein High Sensitivity 6.18 H 0.00-0.50 MG/DL Total Protein 7.2 6.4-8.2 GM/DL Albumin 3.8 3.2-4.5 GM/DL My Orders Orders - MALATHI MITCHELL DO Cbc With Automated Diff (11/11/22 03:31) Comprehensive Metabolic Panel (11/11/22 03:31) Blood Culture (11/11/22 03:31) Protime With Inr (11/11/22 03:31) Partial Thromboplastin Time (11/11/22 03:31) Ed Iv/Invasive Line Start (11/11/22 03:31) Ed Iv/Invasive Line Start (11/11/22 03:31) Vital Signs Adult Sepsis Patie Q15M (11/11/22 03:31) O2 (11/11/22 03:31) Remove Rings In Anticipation O (11/11/22 03:31) Lactic Acid Analyzer (11/11/22 03:31) Aztreonam Injection (Azactam Injection) (11/11/22 03:45) Vancomycin Injection (Vancomycin Injecti (11/11/22 03:45) Hs C Reactive Protein (11/11/22 03:42) Erythrocyte Sedimentation Rate (11/11/22 03:42) Uric Acid (11/11/22 03:42) Ondansetron Oral Dissolve Tab (Zofran (11/11/22 03:45) Ondansetron Injection (Zofran Injectio (11/11/22 04:00) Accucheck Stat ONCE (11/11/22 03:53) Monitor-Rhythm Ecg Trace Only (11/11/22 03:53) Ed Iv/Invasive Line Start (11/11/22 04:08) Ns Iv 1000 Ml (Sodium Chloride 0.9%) (11/11/22 04:15) Foot, Right, 3 View (11/11/22 04:36) Medications Given in ED Current Medications Medications Dose Ordered Sig/Raheem Route Start Time Stop Time Status Last Admin Dose Admin Aztreonam 2000 mg/ Sodium Chloride 100 ml @ 200 mls/hr ONCE ONCE IV 11/11/22 03:45 11/11/22 04:14 DC 11/11/22 04:33 200 MLS/HR Ondansetron HCl 8 mg ONCE ONCE IVP 11/11/22 04:00 11/11/22 04:01 DC 11/11/22 03:58 8 MG Vital Signs/I&O 11/11/22 11/11/22 03:25 05:25 Temp 36.8 36.8 Pulse 77 74 Resp 16 16 B/P (MAP) 144/77 (99) 143/68 Pulse Ox 98 95 O2 Delivery Room Air Room Air Progress Progress Note : Progress Note PT BEGAN HAVING NAUSEA AND DRY HEAVES SHORTLY AFTER ARRIVAL SEPSIS PROTOCOL INITIATED GIVEN: -ZOFRAN -ANTIBIOTICS -IV FLUIDS ACCUCHECK 115 ON ARRIVAL VITALS ON ARRIVAL: TEMP 36.8 = 98.2, HR 77, BP 144/77, O2 SAT 98% ON ROOM AIR VITALS AT TIME OF ADMIT: TEMP 36.8, HR 73, BP 142/73, RR 16, O2 SAT 94% ON ROOM AIR. PERTINENT LAB FINDINGS: CBC WITH WBC 13.8--WAS 12.2 ON 07/12/22 CMP WITH NORMAL ELECTROLYTES, BUN 26, CR 1.16 URIC ACID 8.5 SED RATE 63 CRP 6/18 LACTIC ACID 1.06 FOCUS EXAM AT 0435: EXAM UNCHANGED, VITALS STABLE. SIRS/BORDERLINE SEPSIS CRITERIA. NO DETERIORATION IN PT'S CONDITION DURING ER STAY REVIEWED TEST RESULTS, NEED FOR ADMIT AND PT IS AGREEABLE TO PLAN PRIOR RECORDS REVIEWED, INCLUDING ER VISITS, ADMITS/H&P'S/CONSULTS/DISCHARGE SUMMARIES, TESTS/PROCEDURES Diagnostic Imaging Comments XRAYS RIGHT FOOT--PENDING RADIOLOGIST REVIEW -NO ACUTE PROCESS Reviewed: Reviewed by Me Departure Communication (Admissions) 0436--SPOKE WITH DR. SUMNER, HOSPITALIST, ACCEPTS PT FOR ADMIT. Impression Primary Impression: Cellulitis of right foot Additional Impressions: NIDDM Super obesity Candidal intertrigo HTN (hypertension) Disposition: ADMITTED INPATIENT Condition: Stable Admissions Decision to Admit Reason: Admit from ER (General) Decision to Admit/Date: Nov 11, 2022 Time/Decision to Admit Time: 04:40 Departure-Patient Inst. Referrals: JENNIFER SUMNER MD (PCP/Family) Primary Care Physician MALATHI MITCHELL DO Nov 11, 2022 03:42
[2022-11-11] MEDS ORDERED: AZTREONAM INJECTION 2,000 MG in NS (IVPB) 100 ML IV ONE (03:45)
[2022-11-11] MEDS ORDERED: ONDANSETRON 4 MG (ZOFRAN) ORAL DISSOLVE TAB PO ONE (03:45)
[2022-11-11 03:58] LABS: BASOPHILS # (AUTO) 0.1 10^3/uL (0.0-0.1); BASOPHILS % (AUTO) 0 % (0-10); EOSINOPHILS # (AUTO) 0.6 10^3/uL (0.0-0.3); EOSINOPHILS % (AUTO) 5 % (0-10); HEMATOCRIT 35 % (35-52); HEMOGLOBIN 11.4 g/dL (11.5-16.0); LYMPHOCYTES # (AUTO) 2.4 10^3/uL (1.0-4.0); LYMPHOCYTES % (AUTO) 17 % (12-44); MEAN CORPUSCULAR HEMOGLOBIN 28 pg (25-34); MEAN CORPUSCULAR HGB CONC 32 g/dL (32-36); MEAN CORPUSCULAR VOLUME 87 fL (80-99); MEAN PLATELET VOLUME 10.5 fL (9.0-12.2); MONOCYTES # (AUTO) 1.1 10^3/uL (0.0-1.0); MONOCYTES % (AUTO) 8 % (0-12); NEUTROPHILS # (AUTO) 9.5 10^3/uL (1.8-7.8); NEUTROPHILS % (AUTO) 69 % (42-75); PLATELET COUNT 439 10^3/uL (130-400); WHITE BLOOD COUNT 13.8 10^3/uL (4.3-11.0)
[2022-11-11] MEDS ORDERED: ONDANSETRON 4 MG/2 ML (SDV) Z0FRAN IVP ONE (04:00)
[2022-11-11 04:07] LABS: PROTHROMBIN TIME PATIENT 13.6 SEC (12.2-14.7)
[2022-11-11 04:08] LABS: ALBUMIN 3.8 GM/DL (3.2-4.5)
[2022-11-11 04:09] LABS: POTASSIUM 4.1 MMOL/L (3.6-5.0)
[2022-11-11 04:10] LABS: CALCIUM 10.1 MG/DL (8.5-10.1)
[2022-11-11 04:11] LABS: TOTAL PROTEIN 7.2 GM/DL (6.4-8.2)
[2022-11-11 04:13] LABS: BILIRUBIN,TOTAL 0.2 MG/DL (0.1-1.0)
[2022-11-11 04:15] LABS: CREATININE SERUM 1.1 MG/DL (0.60-1.30)
[2022-11-11] MEDS ORDERED: NS IV 1000 ML 1,000 ML IV SCH (04:15)
[2022-11-11 04:18] LABS: URIC ACID 8.5 MG/DL (2.6-7.2)
[2022-11-11 04:29] LABS: ERYTHROCYTE SEDIMENTATION RATE 63 MM/HR (0-30)
[2022-11-11] MEDS: VANCOMYCIN INJECTION 1,000 MG in NS (IVPB) 250 ML IV SCH ×2 (05:05→06:10)
[2022-11-11 05:41] VITALS: BP 161/72
[2022-11-11] MEDS ORDERED: NS IV 1000 ML 1,000 ML ONE (05:43)
[2022-11-11] MEDS ORDERED: fentaNYL INJ 100 MCG/2 ML AMP IV PRN (06:00)
[2022-11-11] MEDS ORDERED: ACETAMINOPHEN 500 MG TAB (TYLENOL) PO PRN (06:00)
[2022-11-11] MEDS ORDERED: IBUPROFEN 800 MG (MOTRIN) TAB PO PRN (06:00)
[2022-11-11] MEDS ORDERED: ONDANSETRON 4 MG/2 ML (SDV) Z0FRAN IV PRN (06:00)
[2022-11-11] MEDS ORDERED: VANCOMYCIN 750 MG/NS 250 ML IVPB IV ONE ×2 (06:00)
[2022-11-11] MEDS: inSUlin ASPART (NovoLOG) 1 UNIT/0.01 ML (CHARGE PER UNIT) SC SCH ×4 (06:04→22:11)
[2022-11-11] MEDS: NS IV 1000 ML 1,000 ML IV SCH ×3 (06:10→15:22)
[2022-11-11 07:27] VITALS: BP 139/63
--- NOTE | 2022-11-11 07:58 | Diagnostic Imaging Report ---
INDICATION: Right foot pain AP, oblique, and lateral views of the right foot are obtained. There are chronic changes with posterior and plantar calcaneal spurring and some soft tissue calcifications plantar to the calcaneus. There are mild diffuse degenerative changes in the interphalangeal joints. There is no dislocation or acute fracture. Accessory ossicle seen adjacent to the cuboid. IMPRESSION: Chronic changes in right foot as above with no acute fracture or dislocation. Dictated by: Dictated on workstation # [id number]
[2022-11-11] MEDS ORDERED: diphenhydrAMINE 25 MG TAB (BENADRYL) PO PRN (10:30)
[2022-11-11] MEDS ORDERED: COLCHICINE 0.6 MG (COLCRYS) TABLET PO NR (10:30)
--- NOTE | 2022-11-11 10:42 | History & Physical-Hospitalist ---
History of Present Illness HPI/Chief Complaint Pt is a 56yoCF known to me from recent admission who presented to the ER due to fever and foot pain. She was just admitted for cellulitis and bacteremia. She was afebrile and doing well on DC but after being home a day or so she developed a recurrent fever. Her foot pain worsened as well. She noticed the erythema on her foot was increasing as well. She stated the pain started to feel like when she had previously had gout. She was admitted for IV abx. She reports feeling better this morning. She would like her telemetry off and would like some prn benadryl. She also has been taking a supplement drink from [employer] and was wondering if it was ok to continue or had anything in it that could be interacting with her meds. Source: patient Date Seen 11/11/22 Time Seen by a Provider: 10:37 Attending Physician Jasvir Clemons MD PCP Admitting Physician: Jasvir Clemons MD Attending Physician: Jasvir Clemons MD Referring Physician Date of Admission Nov 11, 2022 at 05:27 Home Medications & Allergies Home Medications Reviewed patient Home Medication Reconciliation performed by pharmacy medication reconciliations camera technician and/or nursing. Patients Allergies have been reviewed. Allergies Allergies Coded Allergies Penicillins (Unverified Allergy, Severe, HIVES, THROAT SWELLS, DIFFICULTY BREATHING, 02/10/07) hydrocodone (Verified Allergy, Intermediate, "MAKES HER FEEL VERY BAD", 12/15/15) latex (Verified Allergy, Mild, RASH, 11/07/15) Cephalosporins (Unverified Allergy, Unknown, 12/16/15) empagliflozin (Verified Allergy, Unknown, 02/05/21) meropenem (Verified Allergy, Unknown, Itching, 11/07/22) itching and throat swelling tree nut (Unverified Allergy, Unknown, 10/08/21) Uncoded Allergies TAPE ( Adverse Reaction, Mild, RASH, WHELPS ON SKIN WHERE TAPE WAS., 02/10/07) Past Vnefsvh-Nmvmrx-Lzsyka Hx Patient Social History Tobacco Use?: No Smoking Status: Unknown if Ever Smoked Use of E-Cig and/or Vaping dev: No Substance use?: No Alcohol Use?: No Pt feels they are or have been: No Immunizations Up To Date First/Initial COVID19 Vaccinat: NO Second COVID19 Vaccination Cesario: NO Tetanus Booster (TDap): Unknown Date of Pneumonia Vaccine: Jun 27, 2013 Seasonal Allergies Seasonal Allergies: Yes Current Status Advance Directives: Unable to obtain Communicates: Verbally Primary Language: Yi Preferred Spoken Language: Yi Is interpretation needed?: No Implanted or Applied Medical D: None Past Medical History Surgeries: Abdominal, Section, Gallbladder, Hysterectomy, O ophorectomy, Rectal, Renal Asthma, Pneumonia, Chronic Bronchitis Currently Using CPAP: No Currently Using BIPAP: No Angina, High Cholesterol, Hypertension, Palpitations 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 Sexually Transmitted Disease: No Kidney Infection, Kidney Stones Gastroesophageal Reflux, Diverticulosis, Polyps, Ulcer, Irritable Bowel Degenerate Disk Disease, Arthritis, Chronic Back Pain, Fractures Hypothyroidsim, Diabetes, Non-Insulin dep Kidney Did You Recieve Any Treatments: Yes What Type of Treatment Did You: Surgical Intervention Anxiety Blood Disorders: No Adverse Reaction/Blood Tranf: No Family Medical History Cardiovascular disease 19 FATHER, Onset:Unknown Completed stroke 19 FATHER, Onset:Unknown Congenital heart disease Dementia 19 FATHER, Onset:Unknown Diabetes mellitus 19 FATHER, Onset:Unknown FH: COPD (chronic obstructive pulmonary disease) 19 MOTHER, Onset:Unknown Hypertension 19 FATHER, Onset:Unknown Myocardial infarction 19 FATHER, Onset:Unknown Thyroid disease 19 MOTHER, Onset:Unknown No Pertinent Family Hx PAST SURGICAL HISTORY: - -HYSTERECTOMY/BILATERAL SALPINGO-OOPHORECTOMY -HEMORRHOIDECTOMY -MULTIPLE I&D'S OF ABSCESSES -PARTIAL LEFT NEPHRECTOMY FOR TUMOR -CHOLECYSTECTOMY Review of Systems Constitutional: see HPI Physical Exam Physical Exam Vital Signs Vital Signs - First Documented 11/11/22 11/12/22 03:25 07:49 Temp 36.8 Pulse 77 Resp 16 B/P (MAP) 144/77 (99) Pulse Ox 98 O2 Delivery Room Air O2 Flow Rate 0.00 Capillary Refill : Less Than 3 Seconds Height, Weight, BMI Height: 5'3.00" Weight: 285lbs. 0.0oz. 129.200329oc; 50.74 BMI Method:Stated General Appearance: No Apparent Distress, Chronically ill, Obese Respiratory: Lungs Clear, No Respiratory Distress Cardiovascular: Regular Rate, Rhythm, No Murmur Gastrointestinal: Normal Bowel Sounds, Soft Extremity: No Calf Tenderness, No Pedal Edema Neurologic/Psychiatric: Alert, Oriented x3 Results Results/Procedures Labs Laboratory Tests 11/11/22 03:49 11/12/22 05:27 Patient resulted labs reviewed. Imaging: Reviewed Imaging Report Assessment/Plan Admission Diagnosis Recurrent Cellulitis Admission Status: Inpatient Order (span 2 midnights) Reason for Inpatient Admission: see below Assessment and Plan Cellulitis of right foot Gout Recent bacteremia Failed outpatient management Continue IV antibiotics Await sensitivities on blood cultures PT/OT Add colchicine for gout Candidal intertrigo Continue Diflucan Will have wound nurse see HTN Asthma T2DM GERD Fibromyalgia Raynaud's Super obesity Continue home meds DVt ppx: LACEY Cruiel MD Nov 11, 2022 10:42
[2022-11-11 11:06] VITALS: BP 127/67
[2022-11-11] MEDS: AZTREONAM 2 GM/NS 100 ML IVPB IV SCH ×4 (12:39→20:53)
[2022-11-11] MEDS ORDERED: DIPH25CA79 PO (13:51)
[2022-11-11] MEDS ORDERED: DOXY100C5 PO (13:51)
[2022-11-11] MEDS ORDERED: FLUC100T10 PO (13:51)
[2022-11-11] MEDS ORDERED: amLODIPine 5 MG (NORVASC) TAB PO PRN (14:15)
[2022-11-11] MEDS ORDERED: ALPRAZolam 1 MG (XANAX) TAB PO PRN (14:15)
[2022-11-11] MEDS ORDERED: RT-ALBUTEROL HFA 8.5 GM INHALER IH PRN (14:30)
[2022-11-11] MEDS: CYCLOBENZAPRINE 10 MG (FLEXERIL) TAB PO PRN (16:17)
[2022-11-11] MEDS: MAGNESIUM OXIDE (MAG-OX)400 MG TAB PO SCH (16:17)
[2022-11-11 16:19] VITALS: BP 122/57
[2022-11-11 20:05] VITALS: BP 143/67
[2022-11-11] MEDS: DOXYCYCLINE 100 MG (VIBRAMYCIN) TABLET PO SCH (20:54)
[2022-11-11] MEDS: metFORMIN XR 500 MG (GLUCOPHAGE XR) TAB PO SCH (20:54)
[2022-11-11] MEDS: ASPIRIN 81 MG CHEW (CHILDREN'S ASA) PO SCH (20:54)
[2022-11-11] MEDS: CELECOXIB 100 MG (CeleBREX) CAP PO SCH (20:54)
[2022-11-11] MEDS: FAMOTIDINE 20 MG (PEPCID) TABLET PO SCH (20:54)
[2022-11-11] MEDS: LOSARTAN 50 MG (COZAAR) TAB PO SCH (20:54)
[2022-11-11] MEDS: PROPRANOLOL 20 MG (INDERAL) TABLET PO SCH (20:54)
[2022-11-11] MEDS ORDERED: NON-FORMULARY MEDICATION 1 EA EA (Budesonide/Glycopyr/Formoterol (Breztri Aerosphere Inhal INH SCH (21:00)
[2022-11-11] MEDS ORDERED: NON-FORMULARY MEDICATION 1 EA EA (Irbesartan 150 MG) PO SCH (21:00)
[2022-11-11] MEDS ORDERED: [UNRECOGNIZED DRUG - REMARK] NS SCH (21:00)
[2022-11-11] MEDS ORDERED: MAGNESIUM 500 MG PO SCH (21:00)
[2022-11-11] MEDS ORDERED: BECLOMETHASONE DIPROPIONATE IH SCH (21:00)
[2022-11-11 23:54] VITALS: BP 154/76
[2022-11-12] VITALS (7 sets, daily range): BP systolic 114–187; BP diastolic 64–90
[2022-11-12] MEDS: NS IV 1000 ML 1,000 ML IV SCH ×2 (01:16→04:09)
[2022-11-12] MEDS: AZTREONAM 2 GM/NS 100 ML IVPB IV SCH ×6 (04:10→20:03)
[2022-11-12] MEDS: inSUlin ASPART (NovoLOG) 1 UNIT/0.01 ML (CHARGE PER UNIT) SC SCH ×4 (05:00→20:03)
[2022-11-12 05:35] LABS: BASOPHILS # (AUTO) 0.1 10^3/uL (0.0-0.1); BASOPHILS % (AUTO) 1 % (0-10); EOSINOPHILS # (AUTO) 0.7 10^3/uL (0.0-0.3); EOSINOPHILS % (AUTO) 7 % (0-10); HEMATOCRIT 34 % (35-52); HEMOGLOBIN 10.5 g/dL (11.5-16.0); LYMPHOCYTES # (AUTO) 2.1 10^3/uL (1.0-4.0); LYMPHOCYTES % (AUTO) 21 % (12-44); MEAN CORPUSCULAR HEMOGLOBIN 28 pg (25-34); MEAN CORPUSCULAR HGB CONC 31 g/dL (32-36); MEAN CORPUSCULAR VOLUME 89 fL (80-99); MEAN PLATELET VOLUME 10.3 fL (9.0-12.2); MONOCYTES # (AUTO) 0.9 10^3/uL (0.0-1.0); MONOCYTES % (AUTO) 9 % (0-12); NEUTROPHILS # (AUTO) 6.1 10^3/uL (1.8-7.8); NEUTROPHILS % (AUTO) 62 % (42-75); PLATELET COUNT 384 10^3/uL (130-400); WHITE BLOOD COUNT 9.8 10^3/uL (4.3-11.0)
[2022-11-12 05:52] LABS: ALBUMIN 3.4 GM/DL (3.2-4.5); POTASSIUM 4.3 MMOL/L (3.6-5.0)
[2022-11-12 05:53] LABS: CALCIUM 9.2 MG/DL (8.5-10.1)
[2022-11-12 05:54] LABS: TOTAL PROTEIN 6.4 GM/DL (6.4-8.2)
[2022-11-12 05:56] LABS: BILIRUBIN,TOTAL 0.1 MG/DL (0.1-1.0)
[2022-11-12 05:58] LABS: CREATININE SERUM 0.98 MG/DL (0.60-1.30)
[2022-11-12] MEDS: TIOTROPIUM INH 4 GM (SPIRIVA Respimat) IH SCH (07:48)
[2022-11-12] MEDS: FLUTICASONE 100 MCG 14's (ARNUITY) IH SCH (07:48)
[2022-11-12] MEDS: FLUTICASONE/VILANTEROL 200 MCG 14'S (BREO) IH SCH (07:49)
[2022-11-12] MEDS ORDERED: VANCOMYCIN 1250MG/250ML PREMIX 250 ML IV SCH (08:00)
[2022-11-12] MEDS: DOXYCYCLINE 100 MG (VIBRAMYCIN) TABLET PO SCH (08:18)
[2022-11-12] MEDS: AtorvaSTATin TABLET 10 MG TABLET PO SCH (08:18)
[2022-11-12] MEDS: fluCOnazole (DIFLUCAN) 100 MG TAB PO SCH (08:18)
[2022-11-12] MEDS: FAMOTIDINE 20 MG (PEPCID) TABLET PO SCH ×2 (08:19→20:03)
[2022-11-12] MEDS: MONTELUKAST 10 MG (SINGULAIR) TAB PO SCH (08:19)
[2022-11-12] MEDS: PROPRANOLOL 20 MG (INDERAL) TABLET PO SCH ×2 (08:19→20:03)
[2022-11-12] MEDS: metFORMIN XR 500 MG (GLUCOPHAGE XR) TAB PO SCH ×2 (08:19→20:03)
[2022-11-12] MEDS: CELECOXIB 100 MG (CeleBREX) CAP PO SCH ×2 (08:19→20:03)
[2022-11-12] MEDS: FERROUS SULF 325 MG (IRON) TAB PO SCH (08:21)
[2022-11-12] MEDS ORDERED: COLCHICINE 0.6 MG (COLCRYS) TABLET PO NR (11:00)
--- NOTE | 2022-11-12 13:47 | Progress Note - Hospitalist ---
Subjective HPI/CC On Admission Date Seen by Provider: Nov 12, 2022 Pt is a 56yoCF Subjective/Events-last exam Pt reports doing much better today. Redness improving. Pain improving. Reviewing her labs on portal and wondering about her liver enzymes. Focused Exam Lactate Level 11/11/22 03:49: Lactic Acid Level 1.09 Objective Exam Vital Signs Vital Signs Date Time Temp Pulse Resp B/P (MAP) Pulse Ox O2 Delivery O2 Flow Rate FiO2 11/12/22 13:08 77 168/90 (116) 11/12/22 11:23 36.1 18 97 Room Air 11/12/22 07:58 0.00 Capillary Refill : Less Than 3 Seconds General Appearance: No Apparent Distress, Obese Respiratory: Lungs Clear, No Respiratory Distress Cardiovascular: Regular Rate, Rhythm, No Murmur Extremity: Other (erythema much improved) Neurologic/Psychiatric: Alert, Oriented x3 Results/Procedures Lab Laboratory Tests 11/12/22 05:27 Patient resulted labs reviewed. Imaging: Reviewed Imaging Report Assessment/Plan Assessment and Plan Assess & Plan/Chief Complaint Cellulitis of right foot Gout Recent bacteremia Failed outpatient management Continue IV antibiotics Await results on blood cultures PT/OT Continue colchicine for gout Candidal intertrigo Continue Diflucan Will have wound nurse see- spoke with James today HTN Asthma T2DM GERD Fibromyalgia Raynaud's Super obesity Continue home meds DVt ppx: LACEY Curiel MD Nov 12, 2022 13:47
[2022-11-12] MEDS: MAGNESIUM OXIDE (MAG-OX)400 MG TAB PO SCH (17:25)
[2022-11-12] MEDS: ASPIRIN 81 MG CHEW (CHILDREN'S ASA) PO SCH (20:03)
[2022-11-12] MEDS: LOSARTAN 50 MG (COZAAR) TAB PO SCH (20:03)
[2022-11-12] MEDS: CYCLOBENZAPRINE 10 MG (FLEXERIL) TAB PO PRN (22:40)
[2022-11-13 03:31] VITALS: BP 164/73
[2022-11-13] MEDS: AZTREONAM 2 GM/NS 100 ML IVPB IV SCH ×6 (03:31→19:56)
[2022-11-13] MEDS: inSUlin ASPART (NovoLOG) 1 UNIT/0.01 ML (CHARGE PER UNIT) SC SCH ×4 (05:45→19:45)
[2022-11-13 06:07] LABS: BASOPHILS % (AUTO) 0 % (0-10); EOSINOPHILS # (AUTO) 0.8 10^3/uL (0.0-0.3); EOSINOPHILS % (AUTO) 7 % (0-10); HEMATOCRIT 33 % (35-52); HEMOGLOBIN 10.2 g/dL (11.5-16.0); LYMPHOCYTES # (AUTO) 2.2 10^3/uL (1.0-4.0); LYMPHOCYTES % (AUTO) 22 % (12-44); MEAN CORPUSCULAR HEMOGLOBIN 28 pg (25-34); MEAN CORPUSCULAR HGB CONC 31 g/dL (32-36); MEAN CORPUSCULAR VOLUME 89 fL (80-99); MEAN PLATELET VOLUME 10.4 fL (9.0-12.2); MONOCYTES # (AUTO) 0.8 10^3/uL (0.0-1.0); MONOCYTES % (AUTO) 8 % (0-12); NEUTROPHILS # (AUTO) 6.2 10^3/uL (1.8-7.8); NEUTROPHILS % (AUTO) 61 % (42-75); PLATELET COUNT 402 10^3/uL (130-400); WHITE BLOOD COUNT 10.1 10^3/uL (4.3-11.0)
[2022-11-13 06:22] LABS: ALBUMIN 3.4 GM/DL (3.2-4.5); POTASSIUM 4.9 MMOL/L (3.6-5.0)
[2022-11-13 06:23] LABS: CALCIUM 9.4 MG/DL (8.5-10.1)
[2022-11-13 06:24] LABS: TOTAL PROTEIN 6.3 GM/DL (6.4-8.2)
[2022-11-13 06:26] LABS: BILIRUBIN,TOTAL 0.1 MG/DL (0.1-1.0)
[2022-11-13 06:28] LABS: CREATININE SERUM 0.95 MG/DL (0.60-1.30)
[2022-11-13 07:26] VITALS: BP 162/77
[2022-11-13] MEDS: PROPRANOLOL 20 MG (INDERAL) TABLET PO SCH ×2 (08:07→19:56)
[2022-11-13] MEDS: CELECOXIB 100 MG (CeleBREX) CAP PO SCH ×2 (08:07→19:56)
[2022-11-13] MEDS: FAMOTIDINE 20 MG (PEPCID) TABLET PO SCH ×2 (08:07→19:56)
[2022-11-13] MEDS: COLCHICINE 0.6 MG (COLCRYS) TABLET PO SCH (08:08)
[2022-11-13] MEDS: MONTELUKAST 10 MG (SINGULAIR) TAB PO SCH (08:08)
[2022-11-13] MEDS: fluCOnazole (DIFLUCAN) 100 MG TAB PO SCH (08:08)
[2022-11-13] MEDS: metFORMIN XR 500 MG (GLUCOPHAGE XR) TAB PO SCH ×2 (08:08→19:56)
[2022-11-13] MEDS: AtorvaSTATin TABLET 10 MG TABLET PO SCH (08:08)
[2022-11-13] MEDS: FLUTICASONE/VILANTEROL 200 MCG 14'S (BREO) IH SCH (09:02)
[2022-11-13] MEDS: TIOTROPIUM INH 4 GM (SPIRIVA Respimat) IH SCH (09:02)
[2022-11-13] MEDS: FLUTICASONE 100 MCG 14's (ARNUITY) IH SCH (09:02)
[2022-11-13 11:04] VITALS: BP 159/80
[2022-11-13] MEDS: CYCLOBENZAPRINE 10 MG (FLEXERIL) TAB PO PRN (11:35)
--- NOTE | 2022-11-13 14:20 | Progress Note - Hospitalist ---
Subjective HPI/CC On Admission Date Seen by Provider: Nov 13, 2022 Pt is a 56yoCF known to me from recent admission who presented to the ER due to fever and foot pain. She was just admitted for cellulitis and bacteremia. She was afebrile and doing well on DC but after being home a day or so she developed a recurrent fever. Her foot pain worsened as well. She noticed the erythema on her foot was increasing as well. She stated the pain started to feel like when she had previously had gout. She was admitted for IV abx. She reports feeling better this morning. She would like her telemetry off and would like some prn benadryl. She also has been taking a supplement drink from [employer] and was wondering if it was ok to continue or had anything in it that could be interacting with her meds. Subjective/Events-last exam Pt reports feeling worse today. Thinks she is having a fibro flare. Requests Flexeril. Focused Exam Lactate Level 11/11/22 03:49: Lactic Acid Level 1.09 Objective Exam Vital Signs Vital Signs Date Time Temp Pulse Resp B/P (MAP) Pulse Ox O2 Delivery O2 Flow Rate FiO2 11/13/22 11:04 36.8 73 18 159/80 (106) 95 Room Air 11/12/22 16:55 0.00 Capillary Refill : Less Than 3 Seconds General Appearance: No Apparent Distress, WD/WN Respiratory: Lungs Clear, No Respiratory Distress Cardiovascular: Regular Rate, Rhythm, No Murmur Neurologic/Psychiatric: Alert, Oriented x3 Results/Procedures Lab Laboratory Tests 11/13/22 05:47 Patient resulted labs reviewed. Imaging: Reviewed Imaging Report Assessment/Plan Assessment and Plan Assess & Plan/Chief Complaint Cellulitis of right foot Gout Recent bacteremia Failed outpatient management Continue IV antibiotics Negative blood cultures PT/OT Continue colchicine for gout Candidal intertrigo Continue Diflucan Add miconex HTN Asthma T2DM GERD Fibromyalgia Raynaud's Super obesity Continue home meds Add tramadol for fibromyalgia pain DVt ppx: Lovenox LACEY LEE MD Nov 13, 2022 14:20
[2022-11-13] MEDS: MAGNESIUM OXIDE (MAG-OX)400 MG TAB PO SCH (15:58)
[2022-11-13 16:03] VITALS: BP 177/74
[2022-11-13 19:42] VITALS: BP 183/77
[2022-11-13] MEDS: LOSARTAN 50 MG (COZAAR) TAB PO SCH (19:56)
[2022-11-13] MEDS: ASPIRIN 81 MG CHEW (CHILDREN'S ASA) PO SCH (19:56)
[2022-11-13] MEDS: MICONAZOLE 2% POWDER (DESENEX AF) 90 GM TOP SCH (19:57)
[2022-11-13] MEDS ORDERED: hydrALAZINE (APESOLINE) 20 MG/ML VIAL IV PRN (20:00)
[2022-11-13 23:51] VITALS: BP 158/72
[2022-11-14] MEDS: AZTREONAM 2 GM/NS 100 ML IVPB IV SCH ×6 (03:50→20:07)
[2022-11-14 04:28] VITALS: BP 132/62
[2022-11-14 05:57] LABS: BASOPHILS # (AUTO) 0.1 10^3/uL (0.0-0.1); BASOPHILS % (AUTO) 1 % (0-10); EOSINOPHILS # (AUTO) 0.7 10^3/uL (0.0-0.3); EOSINOPHILS % (AUTO) 7 % (0-10); HEMATOCRIT 33 % (35-52); HEMOGLOBIN 10.1 g/dL (11.5-16.0); LYMPHOCYTES # (AUTO) 2.2 10^3/uL (1.0-4.0); LYMPHOCYTES % (AUTO) 21 % (12-44); MEAN CORPUSCULAR HEMOGLOBIN 27 pg (25-34); MEAN CORPUSCULAR HGB CONC 31 g/dL (32-36); MEAN CORPUSCULAR VOLUME 89 fL (80-99); MEAN PLATELET VOLUME 10.5 fL (9.0-12.2); MONOCYTES # (AUTO) 0.9 10^3/uL (0.0-1.0); MONOCYTES % (AUTO) 9 % (0-12); NEUTROPHILS # (AUTO) 6.6 10^3/uL (1.8-7.8); NEUTROPHILS % (AUTO) 62 % (42-75); PLATELET COUNT 403 10^3/uL (130-400); WHITE BLOOD COUNT 10.6 10^3/uL (4.3-11.0)
[2022-11-14 06:08] LABS: ALBUMIN 3.4 GM/DL (3.2-4.5); POTASSIUM 4.6 MMOL/L (3.6-5.0)
[2022-11-14 06:09] LABS: CALCIUM 9.3 MG/DL (8.5-10.1)
[2022-11-14 06:10] LABS: TOTAL PROTEIN 6.2 GM/DL (6.4-8.2)
[2022-11-14 06:12] LABS: BILIRUBIN,TOTAL 0.1 MG/DL (0.1-1.0)
[2022-11-14 06:14] LABS: CREATININE SERUM 0.94 MG/DL (0.60-1.30)
[2022-11-14] MEDS: inSUlin ASPART (NovoLOG) 1 UNIT/0.01 ML (CHARGE PER UNIT) SC SCH ×4 (06:15→20:06)
[2022-11-14] MEDS: FLUTICASONE/VILANTEROL 200 MCG 14'S (BREO) IH SCH (07:20)
[2022-11-14] MEDS: TIOTROPIUM INH 4 GM (SPIRIVA Respimat) IH SCH (07:20)
[2022-11-14] MEDS: FLUTICASONE 100 MCG 14's (ARNUITY) IH SCH (07:20)
[2022-11-14 08:41] VITALS: BP 142/84
[2022-11-14] MEDS: metFORMIN XR 500 MG (GLUCOPHAGE XR) TAB PO SCH ×2 (08:52→20:06)
[2022-11-14] MEDS: COLCHICINE 0.6 MG (COLCRYS) TABLET PO SCH (08:52)
[2022-11-14] MEDS: AtorvaSTATin TABLET 10 MG TABLET PO SCH (08:52)
[2022-11-14] MEDS: CELECOXIB 100 MG (CeleBREX) CAP PO SCH ×2 (08:53→20:06)
[2022-11-14] MEDS: MONTELUKAST 10 MG (SINGULAIR) TAB PO SCH (08:53)
[2022-11-14] MEDS: PROPRANOLOL 20 MG (INDERAL) TABLET PO SCH ×2 (08:53→20:07)
[2022-11-14] MEDS: fluCOnazole (DIFLUCAN) 100 MG TAB PO SCH (08:53)
[2022-11-14] MEDS: FAMOTIDINE 20 MG (PEPCID) TABLET PO SCH ×2 (08:53→20:06)
[2022-11-14] MEDS: FERROUS SULF 325 MG (IRON) TAB PO SCH (08:54)
[2022-11-14] MEDS: MICONAZOLE 2% POWDER (DESENEX AF) 90 GM TOP SCH ×2 (08:54→21:00)
--- NOTE | 2022-11-14 12:37 | Progress Note - Hospitalist ---
Subjective HPI/CC On Admission Date Seen by Provider: Nov 14, 2022 Pt is a 56yoCF known to me from recent admission who presented to the ER due to fever and foot pain. She was just admitted for cellulitis and bacteremia. She was afebrile and doing well on DC but after being home a day or so she developed a recurrent fever. Her foot pain worsened as well. She noticed the erythema on her foot was increasing as well. She stated the pain started to feel like when she had previously had gout. She was admitted for IV abx. She reports feeling better this morning. She would like her telemetry off and would like some prn benadryl. She also has been taking a supplement drink from [employer] and was wondering if it was ok to continue or had anything in it that could be interacting with her meds. Subjective/Events-last exam Pt reports doing well. No complaints. Pain and redness improving. Objective Exam Vital Signs Vital Signs Date Time Temp Pulse Resp B/P (MAP) Pulse Ox O2 Delivery O2 Flow Rate FiO2 11/14/22 08:41 36.0 72 19 142/84 (103) 97 Room Air 11/12/22 16:55 0.00 Capillary Refill : Less Than 3 Seconds General Appearance: No Apparent Distress, WD/WN Respiratory: Lungs Clear, No Respiratory Distress Cardiovascular: Regular Rate, Rhythm, No Murmur Gastrointestinal: Normal Bowel Sounds, Soft Extremity: Other (erythema and edema resolved) Neurologic/Psychiatric: Alert, Oriented x3 Results/Procedures Lab Laboratory Tests 11/14/22 05:35 Patient resulted labs reviewed. Imaging: Reviewed Imaging Report Assessment/Plan Assessment and Plan Assess & Plan/Chief Complaint Cellulitis of right foot Gout Recent bacteremia Failed outpatient management Continue IV antibiotics- complete course tomorrow Negative blood cultures PT/OT Continue colchicine for gout Candidal intertrigo Continue Diflucan Add miconex HTN Asthma T2DM GERD Fibromyalgia Raynaud's Super obesity Continue home meds Continue tramadol for fibromyalgia pain DVt ppx: LACEY Curiel MD Nov 14, 2022 12:37
[2022-11-14 12:50] VITALS: BP 153/72
[2022-11-14 15:59] VITALS: BP 172/66
[2022-11-14] MEDS: MAGNESIUM OXIDE (MAG-OX)400 MG TAB PO SCH (17:28)
[2022-11-14 20:05] VITALS: BP 127/70
[2022-11-14] MEDS: ASPIRIN 81 MG CHEW (CHILDREN'S ASA) PO SCH (20:06)
[2022-11-14] MEDS: LOSARTAN 50 MG (COZAAR) TAB PO SCH (20:06)
[2022-11-14 23:58] VITALS: BP 151/64
[2022-11-15 03:53] VITALS: BP 140/81
[2022-11-15] MEDS: AZTREONAM 2 GM/NS 100 ML IVPB IV SCH ×4 (03:56→10:34)
[2022-11-15] MEDS: inSUlin ASPART (NovoLOG) 1 UNIT/0.01 ML (CHARGE PER UNIT) SC SCH ×2 (05:12→10:32)
[2022-11-15] MEDS: FLUTICASONE/VILANTEROL 200 MCG 14'S (BREO) IH SCH (07:18)
[2022-11-15] MEDS: TIOTROPIUM INH 4 GM (SPIRIVA Respimat) IH SCH (07:18)
[2022-11-15] MEDS: FLUTICASONE 100 MCG 14's (ARNUITY) IH SCH (07:18)
[2022-11-15 07:48] VITALS: BP 158/88
[2022-11-15] MEDS: MICONAZOLE 2% POWDER (DESENEX AF) 90 GM TOP SCH (08:05)
[2022-11-15] MEDS: AtorvaSTATin TABLET 10 MG TABLET PO SCH (08:05)
[2022-11-15] MEDS: PROPRANOLOL 20 MG (INDERAL) TABLET PO SCH (08:05)
[2022-11-15] MEDS: fluCOnazole (DIFLUCAN) 100 MG TAB PO SCH (08:05)
[2022-11-15] MEDS: MONTELUKAST 10 MG (SINGULAIR) TAB PO SCH (08:05)
[2022-11-15] MEDS: FAMOTIDINE 20 MG (PEPCID) TABLET PO SCH (08:05)
[2022-11-15] MEDS: metFORMIN XR 500 MG (GLUCOPHAGE XR) TAB PO SCH (08:05)
[2022-11-15] MEDS: CELECOXIB 100 MG (CeleBREX) CAP PO SCH (08:05)
[2022-11-15] MEDS ORDERED: ALLO100T PO (10:16)
--- NOTE | 2022-11-15 11:40 | D/C HH Face to Face Order ---
D/C Face to Face Orders Instructions for Patient Via [facility], Patient Instructions/FollowUp: see instructions Physician to follow Patient: Deonte Discharge Diet for Home: No Restrictions Patient Data-Allergies,Ht & Wt Patient Allergies: Coded Allergies: Penicillins (Unverified Allergy, Severe, HIVES, THROAT SWELLS, DIFFICULTY BREATHING, 02/10/07) hydrocodone (Verified Allergy, Intermediate, "MAKES HER FEEL VERY BAD", 12/15/15) latex (Verified Allergy, Mild, RASH, 11/07/15) Cephalosporins (Unverified Allergy, Unknown, 12/16/15) empagliflozin (Verified Allergy, Unknown, 02/05/21) meropenem (Verified Allergy, Unknown, Itching, 11/07/22) itching and throat swelling tree nut (Unverified Allergy, Unknown, 10/08/21) Uncoded Allergies: TAPE (Adverse Reaction, Mild, RASH, WHELPS ON SKIN WHERE TAPE WAS., 02/10/07) Height (Feet): 5 Height (Inches): 3.00 Weight (Pounds): 285 Weight (Ounces): 0.0 Home Health Need/Face to Face Date of Face to Face: Nov 15, 2022 Clinical Findings: Generalized weakness and fatigue, Instability, Muscle weakness I have seen Pt [id number]: Yes Discharged To: Home Diagnosis/Conditions: Cellulitis Gout Obesity Problems/Diagnosis/Condition: (1) Cellulitis of right foot (2) Gout (3) Super obesity Patient is Homebound due to: Kerline fall risk due to instabilty, Muscle weakness Homebound Status Due to the above stated illness, injury or surgical procedure (medical condition or diagnosis) and associated clinical findings, the patient is homebound because of his/her inability to leave home except with aid of a supportive device and/or person AND leaving the home requires a considerable and taxing effort or is medically contraindicated. Pt req the following assistanc: Aid of another person Home Health Nursing Orders Home Health Services Order: Nursing Services, Hand Polisher-Evaluate & Treat, Physical Therapy-Evaluate & Treat Home Health Infusion Therapy Line Start Date: Nov 11, 2022 Therapy Orders Therapy Orders: OT (must have SN or PT order), Physical Therapy Therapy Specific Orders: Eval assistive deivces, Teach enviro modifications/safety, Gait training, Increase strength/endurance Certify Stmt I certify that this patient is under my care and that I, a nurse practitioner or a physician; a tutoring assistant working with me, had a face to face encounter that - meets the physician face to face encounter requirements with this patient as dated. STEPHANIE HENDRICKS MD Nov 15, 2022 11:39
[2022-11-15 11:43] VITALS: BP 140/82
--- NOTE | 2022-11-15 17:05 | Discharge Summary ---
Discharge Summary Hospital Course Problems/Dx: (1) Cellulitis of right foot Status: Acute (2) Gout Status: Acute (3) Candidal intertrigo Status: Acute (4) Super obesity Status: Chronic Hospital Course Date of Admission: Nov 11, 2022 at 05:27 Admission Diagnosis : Cellulitis Family Physician/Provider: Jennifer Sumner MD Date of Discharge: 11/15/22 Discharge Diagnosis: Cellulitis Hospital Course: Christa Sandoval is a 56 year old female who was recently discharged after an admission with cellulitis and bacteremia who was readmitted with recurrent cellulitis. She was treated with a course of IV antibiotics. Her repeat blood cultures were negative. She was also given a course of Colchicine for gout. She was started on Allopurinol. She was discharged home with home health in stable condition. She should follow up with Dr. Sumner in about a week. Labs and Pending Lab Test: Laboratory Tests 11/14/22 19:35: Glucometer 130H 11/15/22 05:06: Glucometer 98 11/15/22 10:22: Glucometer 104 Microbiology 11/11/22 Blood Culture - Preliminary, Resulted No growth Home Meds Active Allopurinol 100 Mg Tablet 100 Mg PO DAILY 30 Days Reported Benadryl (Diphenhydramine HCl) 25 Mg Capsule 25-50 Mg PO Q6H PRN Fluconazole 100 Mg Tablet 100 Mg PO Q48H FILLED 11-09-2022 #5/10 DAY SUPPLY Astepro Allergy (Azelastine HCl) 205.5 Mcg (0.15 %) [place].pump 1 [place] NS HS Magnesium 250 Mg Tablet 500 Mg PO HS Iron (Ferrous Sulfate) 325 Mg (65 Mg Iron) Tablet 325 Mg PO Q48H Amlodipine Besylate 5 Mg Tablet 5 Mg PO DAILY PRN Alprazolam 1 Mg Tablet 1 Mg PO BID PRN Trulicity (Dulaglutide) 0.75 Mg/0.5 Ml Pen.injctr 0.75 Mg SQ TUESDAY Qvar Redihaler (Beclomethasone Dipropionate) 80 Mcg/Actuation Hfa.aeroba 2 Puff IH BID Cyclobenzaprine HCl 5 Mg Tablet 5 Mg PO Q8H PRN Atorvastatin Calcium 10 Mg Tablet 10 Mg PO DAILY Montelukast Sodium 10 Mg Tablet 10 Mg PO DAILY Aspirin 81 Mg Tab.chew 81 Mg PO HS Celecoxib 100 Mg Capsule 100 Mg PO BID LAST FILLED 09-06-2022 #60/30 DAY SUPPLY Metformin HCl ER (Metformin HCl) 500 Mg Tab.er.24 500 Mg PO BID Breztri Aerosphere Inhaler (Budesonide/Glycopyr/Formoterol) 160 Mcg-9 Mcg-4.8 Mcg/Actuation Hfa.aer.ad 2 Puff INH BID Famotidine 20 Mg Tablet 20 Mg PO BID Irbesartan 150 Mg Tablet 150 Mg PO HS Ventolin Hfa (Albuterol Sulfate) 1 Puff Puff 1 Puff INH Q8H PRN Propranolol HCl 40 Mg Tablet 40 Mg PO BID Assessment/Pt Instructions See instructions Discharge Planning: >30 minutes discharge planning Discharge Instructions Discharge Diet: ADA Diet Activity as Tolerated: Yes Discharge Physical Examination Vital Signs Vital Signs Date Time Temp Pulse Resp B/P (MAP) Pulse Ox O2 Delivery O2 Flow Rate FiO2 11/15/22 11:43 36.4 73 20 140/82 (101) 99 Room Air 11/12/22 16:55 0.00 General Appearance: No Apparent Distress, Obese Respiratory: Lungs Clear, No Respiratory Distress Cardiovascular: Regular Rate, Rhythm, No Murmur Gastrointestinal: Normal Bowel Sounds, Soft Extremity: Normal Inspection, No Pedal Edema Skin: Normal Color, Warm/Dry Neurologic/Psychiatric: Alert, Normal Mood/Affect Allergies: Coded Allergies: Penicillins (Unverified Allergy, Severe, HIVES, THROAT SWELLS, DIFFICULTY BREATHING, 02/10/07) hydrocodone (Verified Allergy, Intermediate, "MAKES HER FEEL VERY BAD", 12/15/15) latex (Verified Allergy, Mild, RASH, 11/07/15) Cephalosporins (Unverified Allergy, Unknown, 12/16/15) empagliflozin (Verified Allergy, Unknown, 02/05/21) meropenem (Verified Allergy, Unknown, Itching, 11/07/22) itching and throat swelling tree nut (Unverified Allergy, Unknown, 10/08/21) Uncoded Allergies: TAPE (Adverse Reaction, Mild, RASH, WHELPS ON SKIN WHERE TAPE WAS., 02/10/07) Copy Copies To 1: JENNIFER SUMNER MD Discharge Summary Date of Admission Nov 11, 2022 at 05:27 Date of Discharge Nov 15, 2022 at 13:15 Discharge Date: Nov 15, 2022 Discharge Time: 13:15 Admission Diagnosis Recurrent Cellulitis Discharge Diagnosis (1) Cellulitis of right foot Status: Acute (2) Gout Status: Acute (3) Candidal intertrigo Status: Acute (4) Super obesity Status: Chronic STEPHANIE HENDRICKS MD Nov 15, 2022 17:05
== END 2022-11-15 13:15 | disposition home health service (06) | DRG 603 ==
LOC: EDUNIT# 02:52 → ER 02:55 → 4TH 05:27
PROVIDERS: ADMIT Internal Medicine; ATTEND Internal Medicine
DX: L03.115 Cellulitis of right lower limb (principal); Z68.43 Body mass index [BMI] 50.0-59.9, adult; E66.8 Other obesity; M10.9 Gout, unspecified; B37.2 Candidiasis of skin and nail; I10 Essential (primary) hypertension; E11.9 Type 2 diabetes mellitus without complications; J45.909 Unspecified asthma, uncomplicated; K21.9 Gastro-esophageal reflux disease without esophagitis; M79.7 Fibromyalgia; I73.00 Raynaud's syndrome without gangrene; E78.00 Pure hypercholesterolemia, unspecified; K57.90 Diverticulosis of intestine, part unspecified, without perforation or abscess without bleeding; M19.90 Unspecified osteoarthritis, unspecified site; G89.29 Other chronic pain; M54.9 Dorsalgia, unspecified; E03.9 Hypothyroidism, unspecified; F41.9 Anxiety disorder, unspecified; Z79.82 Long term (current) use of aspirin; Z79.84 Long term (current) use of oral hypoglycemic drugs; Z79.899 Other long term (current) drug therapy; Z90.5 Acquired absence of kidney; Z85.528 Personal history of other malignant neoplasm of kidney
CPT/HCPCS: 36415; 73630; 80053; 82947; 83605; 84550; 85025; 85610; 85652; 85730; 86141; 87040; 93041; 94640; 94760; 96361; 96365; 96367; 96375

== ENCOUNTER → 2022-11-23 | Outpatient (CLI) | payer OTHER ==
[~2022-11-23] MED LIST changes: +ALLO100T PO
[2022-11-23 09:31] LABS: BASOPHILS # (AUTO) 0.1 10^3/uL (0.0-0.1); BASOPHILS % (AUTO) 1 % (0-10); EOSINOPHILS # (AUTO) 0.8 10^3/uL (0.0-0.3); EOSINOPHILS % (AUTO) 5 % (0-10); HEMATOCRIT 38 % (35-52); HEMOGLOBIN 12.1 g/dL (11.5-16.0); LYMPHOCYTES # (AUTO) 3.1 10^3/uL (1.0-4.0); LYMPHOCYTES % (AUTO) 17 % (12-44); MEAN CORPUSCULAR HEMOGLOBIN 28 pg (25-34); MEAN CORPUSCULAR HGB CONC 32 g/dL (32-36); MEAN CORPUSCULAR VOLUME 87 fL (80-99); MEAN PLATELET VOLUME 11.9 fL (9.0-12.2); MONOCYTES # (AUTO) 1.3 10^3/uL (0.0-1.0); MONOCYTES % (AUTO) 8 % (0-12); NEUTROPHILS # (AUTO) 12.3 10^3/uL (1.8-7.8); NEUTROPHILS % (AUTO) 70 % (42-75); PLATELET COUNT 425 10^3/uL (130-400); WHITE BLOOD COUNT 17.7 10^3/uL (4.3-11.0)
[2022-11-23 09:32] LABS: BILIRUBIN,URINE NEGATIVE (NEGATIVE); CLARITY,URINE CLEAR; COLOR,URINE YELLOW; GLUCOSE, URINE (UA) NEGATIVE (NEGATIVE); KETONES,URINE NEGATIVE (NEGATIVE); LEUKOCYTE ESTERASE ,URINE NEGATIVE (NEGATIVE); NITRITE,URINE NEGATIVE (NEGATIVE); PROTEIN,URINE NEGATIVE (NEGATIVE)
[2022-11-23 09:42] LABS: BACTERIA,URINE NEGATIVE /HPF; SQUAMOUS EPITHELIAL CELL,UR 0-2 /HPF
[2022-11-23 09:47] LABS: ALBUMIN 4.2 GM/DL (3.2-4.5); BILIRUBIN,TOTAL 0.3 MG/DL (0.1-1.0); CALCIUM 10.4 MG/DL (8.5-10.1); CREATININE SERUM 1.19 MG/DL (0.60-1.30); POTASSIUM 5.5 MMOL/L (3.6-5.0)
[2022-11-23 09:49] LABS: BAND NEUTROPHILS 0 %; BASOPHILS % (MANUAL) 0 %; EOSINOPHILS % (MANUAL) 5 %; LYMPHOCYTES % (MANUAL) 23 %; MONOCYTES % (MANUAL) 4 %; NEUTROPHILS % (MANUAL) 68 %; RBC MORPH NORMAL
== END ==
LOC: LABNPT 09:25
PROVIDERS: ATTEND Internal Medicine
DX: L03.115 Cellulitis of right lower limb (principal); A41.9 Sepsis, unspecified organism; I50.9 Heart failure, unspecified; E11.22 Type 2 diabetes mellitus with diabetic chronic kidney disease; N18.9 Chronic kidney disease, unspecified; K57.90 Diverticulosis of intestine, part unspecified, without perforation or abscess without bleeding
CPT/HCPCS: 80053; 81000; 85007; 85027

== ENCOUNTER → 2022-12-01 | Outpatient (CLI) | payer OTHER ==
[2022-12-01 09:31] LABS: BASOPHILS % (AUTO) 0 % (0-10); EOSINOPHILS # (AUTO) 0.7 10^3/uL (0.0-0.3); EOSINOPHILS % (AUTO) 5 % (0-10); HEMATOCRIT 37 % (35-52); HEMOGLOBIN 11.7 g/dL (11.5-16.0); LYMPHOCYTES # (AUTO) 2.4 10^3/uL (1.0-4.0); LYMPHOCYTES % (AUTO) 18 % (12-44); MEAN CORPUSCULAR HEMOGLOBIN 27 pg (25-34); MEAN CORPUSCULAR HGB CONC 32 g/dL (32-36); MEAN CORPUSCULAR VOLUME 86 fL (80-99); MEAN PLATELET VOLUME 11.2 fL (9.0-12.2); MONOCYTES # (AUTO) 0.9 10^3/uL (0.0-1.0); MONOCYTES % (AUTO) 7 % (0-12); NEUTROPHILS # (AUTO) 9.5 10^3/uL (1.8-7.8); NEUTROPHILS % (AUTO) 70 % (42-75); PLATELET COUNT 373 10^3/uL (130-400); WHITE BLOOD COUNT 13.6 10^3/uL (4.3-11.0)
[2022-12-01 09:50] LABS: ALBUMIN 3.7 GM/DL (3.2-4.5); BILIRUBIN,TOTAL 0.2 MG/DL (0.1-1.0); CALCIUM 9.8 MG/DL (8.5-10.1); CREATININE SERUM 1.1 MG/DL (0.60-1.30); POTASSIUM 4.9 MMOL/L (3.6-5.0); TOTAL PROTEIN 6.9 GM/DL (6.4-8.2)
== END ==
LOC: LAB 09:11
PROVIDERS: ATTEND Internal Medicine
DX: D72.829 Elevated white blood cell count, unspecified (principal); M10.9 Gout, unspecified; N18.30 Chronic kidney disease, stage 3 unspecified
CPT/HCPCS: 36415; 80053; 84550; 85025

== ENCOUNTER 2023-02-16 13:19 | Outpatient (RCR) | payer OTHER ==
[~2023-02-16 13:19] MED LIST changes: -CELE100C84 PO; +CELE100C85 PO; -MECL-149 PO; +MECL-291 PO
== END 2023-03-15 | disposition home or self-care (01) ==
LOC: ONC 13:19
PROVIDERS: ATTEND Internal Medicine Hematology & Oncology
DX: D72.829 Elevated white blood cell count, unspecified (principal); E61.1 Iron deficiency; I10 Essential (primary) hypertension; E11.9 Type 2 diabetes mellitus without complications
CPT/HCPCS: 36415; 99214

== ENCOUNTER → 2023-02-18 | Outpatient (CLI) | payer OTHER | LOC: RAD 14:14 | PROVIDERS: ATTEND Internal Medicine Critical Care Medicine | DX: Z53.9 Procedure and treatment not carried out, unspecified reason (principal) ==

== ENCOUNTER → 2023-02-18 | Outpatient (CLI) | payer OTHER ==
--- NOTE | 2023-02-18 15:08 | Diagnostic Imaging Report ---
INDICATION: Follow-up abnormality in the left lung. Chronic cough and COPD. EXAMINATION: Two-view chest from 02/18/2023. COMPARISON: 11/06/2022. FINDINGS: There is no focal infiltrate. No effusions. No pneumothorax. Lungs and pleural spaces are clear. Heart and pulmonary vasculature are normal. IMPRESSION: 1. No acute cardiopulmonary process. Dictated by: Dictated on workstation # [id number]
== END ==
LOC: LAB 14:19
PROVIDERS: ATTEND Nurse Practitioner Family
DX: D72.10 Eosinophilia, unspecified (principal); R19.7 Diarrhea, unspecified; R10.13 Epigastric pain; J44.9 Chronic obstructive pulmonary disease, unspecified
CPT/HCPCS: 71046

== ENCOUNTER → 2023-03-09 | Outpatient (CLI) | payer OTHER ==
[2023-03-09 15:23] LABS: BASOPHILS # (AUTO) 0.1 10^3/uL (0.0-0.1); BASOPHILS % (AUTO) 0 % (0-10); EOSINOPHILS # (AUTO) 0.5 10^3/uL (0.0-0.3); EOSINOPHILS % (AUTO) 3 % (0-10); HEMATOCRIT 37 % (35-52); HEMOGLOBIN 11.7 g/dL (11.5-16.0); LYMPHOCYTES # (AUTO) 2.6 X 10^3 (1.0-4.0); LYMPHOCYTES % (AUTO) 15 % (12-44); MEAN CORPUSCULAR HEMOGLOBIN 27 pg (25-34); MEAN CORPUSCULAR HGB CONC 32 g/dL (32-36); MEAN CORPUSCULAR VOLUME 83 fL (80-99); MEAN PLATELET VOLUME 11.1 fL (9.0-12.2); MONOCYTES # (AUTO) 0.9 X 10^3 (0.0-1.0); MONOCYTES % (AUTO) 5 % (0-12); NEUTROPHILS # (AUTO) 13.5 X 10^3 (1.8-7.8); NEUTROPHILS % (AUTO) 77 % (42-75); PLATELET COUNT 380 10^3/uL (130-400); WHITE BLOOD COUNT 17.6 10^3/uL (4.3-11.0)
[2023-03-09 15:32] LABS: POTASSIUM 4.7 MMOL/L (3.6-5.0)
[2023-03-09 15:33] LABS: CALCIUM 10.1 MG/DL (8.5-10.1)
[2023-03-09 15:34] LABS: TOTAL PROTEIN 7.7 GM/DL (6.4-8.2)
[2023-03-09 15:36] LABS: BILIRUBIN,TOTAL 0.3 MG/DL (0.1-1.0)
[2023-03-09 15:38] LABS: CREATININE SERUM 1.93 MG/DL (0.60-1.30)
[2023-03-09 16:22] LABS: EOSINOPHILS % (MANUAL) 5 %; LYMPHOCYTES % (MANUAL) 13 %; MONOCYTES % (MANUAL) 6 %; NEUTROPHILS % (MANUAL) 76 %; PLATELET ESTIMATE ADEQUATE; RBC MORPH NORMAL
== END ==
LOC: LAB 15:05
PROVIDERS: ATTEND Nurse Practitioner Family
DX: D72.829 Elevated white blood cell count, unspecified (principal)
CPT/HCPCS: 36415; 80053; 85007; 85027

== ENCOUNTER → 2023-03-17 | Outpatient (CLI) | payer OTHER ==
[~2023-03-17] MED LIST changes: +CELE-112 PO; -CELE100C85 PO; +DULA1.5P2 SQ; +METF-865; +NYST15PO4; +SIME80TA16 PO
[2023-03-17 15:30] LABS: BASOPHILS # (AUTO) 0.1 10^3/uL (0.0-0.1); BASOPHILS % (AUTO) 1 % (0-10); EOSINOPHILS # (AUTO) 0.5 10^3/uL (0.0-0.3); EOSINOPHILS % (AUTO) 3 % (0-10); HEMATOCRIT 40 % (35-52); HEMOGLOBIN 12.4 g/dL (11.5-16.0); LYMPHOCYTES # (AUTO) 3.1 10^3/uL (1.0-4.0); LYMPHOCYTES % (AUTO) 18 % (12-44); MEAN CORPUSCULAR HEMOGLOBIN 27 pg (25-34); MEAN CORPUSCULAR HGB CONC 31 g/dL (32-36); MEAN CORPUSCULAR VOLUME 86 fL (80-99); MEAN PLATELET VOLUME 11.4 fL (9.0-12.2); MONOCYTES # (AUTO) 1.4 10^3/uL (0.0-1.0); MONOCYTES % (AUTO) 9 % (0-12); NEUTROPHILS # (AUTO) 11.7 10^3/uL (1.8-7.8); NEUTROPHILS % (AUTO) 69 % (42-75); PLATELET COUNT 382 10^3/uL (130-400); WHITE BLOOD COUNT 16.8 10^3/uL (4.3-11.0)
[2023-03-17 15:46] LABS: ALBUMIN 4.1 GM/DL (3.2-4.5); POTASSIUM 4.9 MMOL/L (3.6-5.0)
[2023-03-17 15:47] LABS: CALCIUM 10.8 MG/DL (8.5-10.1)
[2023-03-17 15:49] LABS: TOTAL PROTEIN 7.9 GM/DL (6.4-8.2)
[2023-03-17 15:51] LABS: BILIRUBIN,TOTAL 0.4 MG/DL (0.1-1.0)
[2023-03-17 15:52] LABS: CREATININE SERUM 2.15 MG/DL (0.60-1.30)
[2023-03-17 15:57] LABS: BASOPHILS % (MANUAL) 1 %; EOSINOPHILS % (MANUAL) 4 %; HYPERSEGMENTED NEUT SLIGHT; LYMPHOCYTES % (MANUAL) 19 %; MONOCYTES % (MANUAL) 6 %; NEUTROPHILS % (MANUAL) 59 %; RBC MORPH NORMAL; REACTIVE LYMPHOCYTES 11 %
[2023-03-17 16:19] LABS: TSH (THYROID ANALYZER) 2.06 UIU/ML (0.35-4.94)
--- NOTE | 2023-03-17 19:33 | Diagnostic Imaging Report ---
PROCEDURE: US Renal Bilateral. TECHNIQUE: Multiple real-time grayscale images were obtained over the kidneys in various projections bilaterally. INDICATION: Decreasing renal function Right and left kidneys measure 10 x 3.9 x 5.0 cm and 10 x 4.6 x 6.6 cm, respectively. There is no hydronephrosis. There are several cysts along the medial aspect of left kidney measuring up to 1.8 cm in size. There is also questionable punctate echogenic foci in the left kidney which could represent nonobstructing calculi. No perinephric fluid collection is seen. Bladder was not well visualized. IMPRESSION: Several cysts are seen in left kidney with possible minimal punctate nonobstructing left renal stones. Otherwise, no acute abnormality is seen. Dictated by: Dictated on workstation # [id number]
--- NOTE | 2023-03-18 09:08 | Diagnostic Imaging Report ---
INDICATION: Routine screening. Comparison is made with prior mammogram from 04/06/2021 and 11/02/2018. 2-D and 3-D bilateral screening mammography was performed with CAD. Scattered fibroglandular densities are identified bilaterally. The parenchymal pattern is stable. The intraparenchymal lymph node in the upper outer right breast is stable. No new mass or malignant-appearing microcalcifications are identified. Axillae are unremarkable. IMPRESSION: No mammographic features suspicious for malignancy are identified. ACR BI-RADS Category 2: Benign findings. Result letter will be mailed to the patient. Note: At least 10% of breast cancer is not imaged by mammography. BI-RADS Category 2 Dictated by: Dictated on workstation # [id number]
== END ==
LOC: RAD 13:54
PROVIDERS: ATTEND Nurse Practitioner Family
DX: Z12.31 Encounter for screening mammogram for malignant neoplasm of breast (principal); N28.1 Cyst of kidney, acquired; D72.829 Elevated white blood cell count, unspecified; N18.30 Chronic kidney disease, stage 3 unspecified
CPT/HCPCS: 36415; 76770; 77063; 77067; 80053; 84443; 85007; 85027

== ENCOUNTER 2023-03-18 11:11 | Inpatient (IN) | payer OTHER ==
[~2023-03-18] VITALS: Ht 160 cm; Wt 120.0 kg
[~2023-03-18 11:11] MED LIST changes: -DULA1.5P2 SQ; -METF-865; -NYST15PO4; -SIME80TA16 PO
[2023-03-18] MEDS ORDERED: NS IV 1000 ML 1,000 ML IV SCH ×2 (11:30→12:15)
[2023-03-18] MEDS ORDERED: ONDANSETRON INJECTION 4 MG/2 ML (SDV) IVP ONE (11:30)
[2023-03-18 11:35] LABS: BASOPHILS # (AUTO) 0.1 10^3/uL (0.0-0.1); BASOPHILS % (AUTO) 0 % (0-10); EOSINOPHILS # (AUTO) 0.6 10^3/uL (0.0-0.3); EOSINOPHILS % (AUTO) 4 % (0-10); HEMATOCRIT 38 % (35-52); HEMOGLOBIN 11.8 g/dL (11.5-16.0); LYMPHOCYTES % (AUTO) 18 % (12-44); MEAN CORPUSCULAR HEMOGLOBIN 27 pg (25-34); MEAN CORPUSCULAR HGB CONC 31 g/dL (32-36); MEAN CORPUSCULAR VOLUME 86 fL (80-99); MEAN PLATELET VOLUME 11.2 fL (9.0-12.2); MONOCYTES # (AUTO) 1.2 10^3/uL (0.0-1.0); MONOCYTES % (AUTO) 8 % (0-12); NEUTROPHILS # (AUTO) 11.6 10^3/uL (1.8-7.8); NEUTROPHILS % (AUTO) 70 % (42-75); PLATELET COUNT 341 10^3/uL (130-400); WHITE BLOOD COUNT 16.5 10^3/uL (4.3-11.0)
--- NOTE | 2023-03-18 11:36 | ED General ---
General Chief Complaint: General Problems/Pain Stated Complaint: COUGH | WHITE BLOOD CT HIGH Source of Information: Patient Exam Limitations: No Limitations History of Present Illness Date Seen by Provider: Mar 18, 2023 Time Seen by Provider: 11:14 Initial Comments 57-year-old female presents to the ER with complaint of being sick for the last 6 weeks. She reports that she has seen her primary care provider several times, they placed her on Levaquin, she finished it on Tuesday, 03/13. She reports intermittent nausea and vomiting, intermittent coffee-ground emesis. She reports last week she was having vomiting and diarrhea at the same time. She reports cough with green phlegm, and intermittent fever. She reports that she started having midsternal chest pain starting at 9 AM this morning and difficulty catching her breath. She reports that last night she started to become dizzy, reports continued dizziness today. Reports right upper quadrant abdominal pain today, states that the pain moves around in her abdomen. She has had her gallbladder removed. She denies dysuria. Allergies and Home Medications Allergies Coded Allergies: Penicillins (Unverified Allergy, Severe, HIVES, THROAT SWELLS, DIFFICULTY BREATHING, 02/10/07) hydrocodone (Verified Allergy, Intermediate, "MAKES HER FEEL VERY BAD", 12/15/15) latex (Verified Allergy, Mild, RASH, 11/07/15) Cephalosporins (Unverified Allergy, Unknown, 12/16/15) empagliflozin (Verified Allergy, Unknown, 02/05/21) meropenem (Verified Allergy, Unknown, Itching, 11/07/22) itching and throat swelling tree nut (Unverified Allergy, Unknown, 10/08/21) Uncoded Allergies: TAPE (Adverse Reaction, Mild, RASH, WHELPS ON SKIN WHERE TAPE WAS., 02/10/07) Patient Home Medication List Home Medication List Reviewed: Yes Albuterol Sulfate (Ventolin Hfa) 1 Puff Puff, 1 PUFF INH Q8H PRN for SHORTNESS OF BREATH, (Reported) Entered as Reported by: WALTER VALENTINE on 07/21/20 1505 Allopurinol (Allopurinol) 100 Mg Tablet, 100 MG PO DAILY Prescribed by: STEPHANIE HENDRICKS on 11/15/22 1016 Alprazolam (Alprazolam) 1 Mg Tablet, 1 MG PO BID PRN for ANXIETY, (Reported) Entered as Reported by: CECI GARZON on 11/08/22 113 Amlodipine Besylate (Amlodipine Besylate) 5 Mg Tablet, 5 MG PO DAILY PRN for BL OOD PRESSURE, (Reported) Entered as Reported by: CECI GARZON on 11/08/22 113 Aspirin (Aspirin) 81 Mg Tab.chew, 81 MG PO HS, (Reported) Entered as Reported by: PETER TENORIO on 11/07/22 0159 Atorvastatin Calcium (Atorvastatin Calcium) 10 Mg Tablet, 10 MG PO DAILY, (Reported) Entered as Reported by: PETER TENORIO on 11/07/22 0300 Azelastine HCl (Astepro Allergy) 205.5 Mcg (0.15 %) [place].pump, 1 SPRAY NS HS, (Reported) Entered as Reported by: CECI GARZON on 11/08/22 113 Beclomethasone Dipropionate (Qvar Redihaler) 80 Mcg/Actuation Hfa.aeroba, 2 PUFF IH BID, (Reported) Entered as Reported by: CECI GARZON on 11/08/22 113 Budesonide/Glycopyr/Formoterol (Breztri Aerosphere Inhaler) 160 Mcg-9 Mcg-4.8 Mcg/Actuation Hfa.aer.ad, 2 PUFF INH BID, (Reported) Entered as Reported by: DUSTIN DAVILA on 10/05/21 1424 Celecoxib (Celecoxib) 100 Mg Capsule, 100 MG PO BID, (Reported) Entered as Reported by: PETER TENORIO on 11/07/22 0159 Cyclobenzaprine HCl (Cyclobenzaprine HCl) 5 Mg Tablet, 5 MG PO Q8H PRN for MUSCLE SPASMS, (Reported) Entered as Reported by: PETER TENORIO on 11/07/22 0300 Diphenhydramine HCl (Benadryl) 25 Mg Capsule, 25-50 MG PO Q6H PRN for ALLERGY SYMPTOMS, (Reported) Entered as Reported by: DUSTIN DAVILA on 11/11/22 1351 Dulaglutide (Trulicity) 0.75 Mg/0.5 Ml Pen.injctr, 0.75 MG SQ TUESDAY, (Reported) Entered as Reported by: CECI GARZON on 11/08/22 113 Famotidine (Famotidine) 20 Mg Tablet, 20 MG PO BID, (Reported) Entered as Reported by: DUSTIN DAVILA on 10/05/21 1424 Ferrous Sulfate (Iron) 325 Mg (65 Mg Iron) Tablet, 325 MG PO Q48H, (Reported) Entered as Reported by: CECI GARZON on 11/08/22 1138 Fluconazole (Fluconazole) 100 Mg Tablet, 100 MG PO Q48H, (Reported) Entered as Reported by: DUSTIN DAVILA on 11/11/22 1351 Irbesartan (Irbesartan) 150 Mg Tablet, 150 MG PO HS, (Reported) Entered as Reported by: KADEN LAMB on 10/04/21 2130 Magnesium (Magnesium) 250 Mg Tablet, 500 MG PO HS, (Reported) Entered as Reported by: CECI GARZON on 11/08/22 1138 Metformin HCl (Metformin HCl ER) 500 Mg Tab.er.24, 500 MG PO BID, (Reported) Entered as Reported by: DUSTIN DAVILA on 10/05/21 1424 Montelukast Sodium (Montelukast Sodium) 10 Mg Tablet, 10 MG PO DAILY, (Reported) Entered as Reported by: PETER TENORIO on 11/07/22 0215 Propranolol HCl (Propranolol HCl) 40 Mg Tablet, 40 MG PO BID, (Reported) Entered as Reported by: SILVANO APONTE on 12/15/15 0846 Review of Systems Review of Systems Constitutional: see HPI Past Pwsnuiv-Lwoyai-Ozsjux Hx Immunizations Up To Date Tetanus Booster (TDap): Unknown First/Initial COVID19 Vaccinat: NO Second COVID19 Vaccination Cesario: NO Third COVID19 Vaccination Date: NO Seasonal Allergies Seasonal Allergies: Yes Past Medical History Surgery/Hospitalization HX: dm, neck/back pain, htn, gerd, FIBRO, LONG COVID, POTS Surgeries: Yes (SURGERY ON BOILS, HEMORRHOIDECTOMY, TUMOR REMOVED FROM L KIDNEY) Abdominal, Section, Gallbladder, Hysterectomy, Oophorectomy, Rectal, Renal Respiratory: Yes ("EXERCISE INDUCED ASTHMA", COVID-01 August 2020) Asthma, Pneumonia, Chronic Bronchitis Currently Using CPAP: No Currently Using BIPAP: No Cardiac: Yes Angina, High Cholesterol, Hypertension, Palpitations Neurological: No 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 Disorders: No COUNTY ADVISER History: Hysterectomy Sexually Transmitted Disease: No Genitourinary: Yes (left renal CA; partial nephroectomy) Kidney Infection, Kidney Stones Gastrointestinal: Yes (Fatty Liver Disease, UMBILICAL HERNIA) Gastroesophageal Reflux, Diverticulosis, Polyps, Ulcer, Irritable Bowel Musculoskeletal: Yes (STENOSIS IN LOWER BACK, OSTEOARTHRITIS, DJD) Degenerate Disk Disease, Arthritis, Chronic Back Pain, Fractures Endocrine: Yes (MORBIDLY OBESE) Hypothyroidsim, Diabetes, Non-Insulin dep HEENT: No Cancer: Yes Kidney Did You Recieve Any Treatments: Yes What Type of Treatment Did You: Surgical Intervention Psychosocial: Yes (PANIC ATTACKS ) Anxiety Integumentary: Yes (CANDIDAL INFECTION OF SKIN OF PANNUS; "BOILS"; R FOOT CELLULITIS) Blood Disorders: No Adverse Reaction/Blood Tranf: No Family Medical History Cardiovascular disease 19 FATHER, Onset:Unknown Completed stroke 19 FATHER, Onset:Unknown Congenital heart disease Dementia 19 FATHER, Onset:Unknown Diabetes mellitus 19 FATHER, Onset:Unknown FH: COPD (chronic obstructive pulmonary disease) 19 MOTHER, Onset:Unknown Hypertension 19 FATHER, Onset:Unknown Myocardial infarction 19 FATHER, Onset:Unknown Thyroid disease 19 MOTHER, Onset:Unknown No Pertinent Family Hx PAST SURGICAL HISTORY: - -HYSTERECTOMY/BILATERAL SALPINGO-OOPHORECTOMY -HEMORRHOIDECTOMY -MULTIPLE I&D'S OF ABSCESSES -PARTIAL LEFT NEPHRECTOMY FOR TUMOR -CHOLECYSTECTOMY Physical Exam-Suspected Sepsis Physical Exam Vital Signs Vital Signs - First Documented 03/18/23 11:20 Temp 37.2 Pulse 103 Resp 22 B/P (MAP) 196/101 (132) Pulse Ox 96 O2 Delivery Room Air Capillary Refill : Height, Weight, BMI Height: 5'3.00" Weight: 285lbs. 0.0oz. 129.433505la; 50.74 BMI Method:Stated General Appearance: No Apparent Distress, WD/WN Neck: Normal Inspection, Supple Respiratory: Lungs Clear, Normal Breath Sounds, No Accessory Muscle Use, No Respiratory Distress, Other (Chest tender to palpation) Cardiovascular: Tachycardia Gastrointestinal: Normal Bowel Sounds, Soft; No Guarding; Tenderness (Right upper quadrant) Extremity: Normal Inspection, Normal Range of Motion Neurologic/Psychiatric: Alert, Normal Mood/Affect Skin: normal color, warm/dry Focused Exam Lactate Level 03/18/23 11:25: Lactic Acid Level 3.23*H Lactic Acid Level Laboratory Tests Test 03/18/23 11:25 Lactic Acid Level 3.23 MMOL/L (0.50-2.00) *H Procedures/Interventions Date of ETT Placement: October 07, 2021 Progress/Results/Core Measures Suspected Sepsis SIRS Temperature: Pulse: Respiratory Rate: Laboratory Tests 03/18/23 11:25: White Blood Count 16.5H Blood Pressure / Mean: 03/18/23 11:25: Lactic Acid Level 3.23*H Laboratory Tests 03/18/23 11:25: Creatinine 2.03H, INR Comment 0.9, Platelet Count 341, Total Bilirubin 0.3 Results/Orders Lab Results Laboratory Tests Test 03/18/23 11:25 03/18/23 11:34 03/18/23 11:35 03/18/23 12:19 Range/Units White Blood Count 16.5 H 4.3-11.0 10^3/uL Red Blood Count 4.41 3.80-5.11 10^6/uL Hemoglobin 11.8 11.5-16.0 g/dL Hematocrit 38 35-52 % Mean Corpuscular Volume 86 80-99 fL Mean Corpuscular Hemoglobin 27 25-34 pg Mean Corpuscular Hemoglobin Concent 31 L 32-36 g/dL Red Cell Distribution Width 14.1 10.0-14.5 % Platelet Count 341 130-400 10^3/uL Mean Platelet Volume 11.2 9.0-12.2 fL Immature Granulocyte % (Auto) 0 % Neutrophils (%) (Auto) 70 42-75 % Lymphocytes (%) (Auto) 18 12-44 % Monocytes (%) (Auto) 8 0-12 % Eosinophils (%) (Auto) 4 0-10 % Basophils (%) (Auto) 0 0-10 % Neutrophils # (Auto) 11.6 H 1.8-7.8 10^3/uL Lymphocytes # (Auto) 3.0 1.0-4.0 10^3/uL Monocytes # (Auto) 1.2 H 0.0-1.0 10^3/uL Eosinophils # (Auto) 0.6 H 0.0-0.3 10^3/uL Basophils # (Auto) 0.1 0.0-0.1 10^3/uL Immature Granulocyte # (Auto) 0.1 0.0-0.1 10^3/uL Neutrophils % (Manual) 70 % Lymphocytes % (Manual) 27 % Monocytes % (Manual) 1 % Eosinophils % (Manual) 2 % Blood Morphology Comment NORMAL Prothrombin Time 13.0 12.2-14.7 SEC INR Comment 0.9 0.8-1.4 Activated Partial Thromboplast Time 29 24-35 SEC Sodium Level 136 135-145 MMOL/L Potassium Level 4.6 3.6-5.0 MMOL/L Chloride Level 105 98-107 MMOL/L Carbon Dioxide Level 16 L 21-32 MMOL/L Anion Gap 15 H 5-14 MMOL/L Blood Urea Nitrogen 27 H 7-18 MG/DL Creatinine 2.03 H 0.60-1.30 MG/DL Estimat Glomerular Filtration Rate 28 BUN/Creatinine Ratio 13 Glucose Level 177 H 70-105 MG/DL Lactic Acid Level 3.23 *H 0.50-2.00 MMOL/L Calcium Level 9.9 8.5-10.1 MG/DL Corrected Calcium 10.0 8.5-10.1 MG/DL Magnesium Level 1.9 1.6-2.4 MG/DL Total Bilirubin 0.3 0.1-1.0 MG/DL Aspartate Amino Transf (AST/SGOT) 30 5-34 U/L Alanine Aminotransferase (ALT/SGPT) 31 0-55 U/L Alkaline Phosphatase 90 40-136 U/L Troponin I < 0.028 < 0.028 <0.028 NG/ML Total Protein 7.5 6.4-8.2 GM/DL Albumin 3.9 3.2-4.5 GM/DL Lipase 81 H 8-78 U/L Urine Color YELLOW Urine Clarity CLOUDY Urine pH 5.0 5-9 Urine Specific [place] 1.020 1.016-1.022 Urine Protein 3+ H NEGATIVE Urine Glucose (UA) NEGATIVE NEGATIVE Urine Ketones TRACE H NEGATIVE Urine Nitrite NEGATIVE NEGATIVE Urine Bilirubin NEGATIVE NEGATIVE Urine Urobilinogen 0.2 < = 1.0 MG/DL Urine Leukocyte Esterase NEGATIVE NEGATIVE Urine RBC (Auto) NEGATIVE NEGATIVE Urine RBC 0-2 /HPF Urine WBC 0-2 /HPF Urine Squamous Epithelial Cells 25-50 H /HPF Urine Crystals PRESENT H /LPF Urine Amorphous Sediment FEW NANCY URATES H /LPF Urine Bacteria TRACE /HPF Urine Casts NONE /LPF Urine Mucus NEGATIVE /LPF Urine Culture Indicated NO Influenza Type A (RT-PCR) Not Detected Not Detecte Influenza Type B (RT-PCR) Not Detected Not Detecte SARS-CoV-2 RNA (RT-PCR) Not Detected Not Detecte My Orders Orders - ABRAMCHE R ARTIST RELATIONSHIP MANAGER Cbc And Automated Diff (03/18/23 11:28) Comprehensive Metabolic Panel (03/18/23 11:28) Blood Culture (03/18/23 11:28) Sputum Culture (03/18/23 11:28) Urinalysis (03/18/23 11:28) Urine Culture (03/18/23 11:28) Protime With Inr (03/18/23 11:28) Partial Thromboplastin Time (03/18/23 11:28) Chest 1 View, Ap/Pa Only (03/18/23 11:28) Ed Iv/Invasive Line Start (03/18/23 11:28) Vital Signs Adult Sepsis Patie Q15M (03/18/23 11:28) O2 (03/18/23 11:28) Remove Rings In Anticipation O (03/18/23 11:28) Lactic Acid Analyzer (03/18/23 11:28) Ns Iv 1000 Ml (Ns Iv 1000 Ml) (03/18/23 11:30) Magnesium (03/18/23 11:28) Ekg Tracing (03/18/23 11:28) Monitor-Rhythm Ecg Trace Only (03/18/23 11:28) Troponin I [place] (03/18/23 11:28) Covid 19 Inhouse Test (03/18/23 11:28) Influenza A And B By Pcr (03/18/23 11:28) Ondansetron Injection (Ondansetron Inj (03/18/23 11:30) Lipase (03/18/23 11:28) Manual Differential (03/18/23 11:25) Ns Iv 1000 Ml (Ns Iv 1000 Ml) (03/18/23 12:15) Troponin I [place] (03/18/23 12:11) Ct Chest/Abdomen/Pelvis Wo (03/18/23 12:24) Ed Admission (Communication) (03/18/23 13:15) Code/Resuscitation (03/18/23 13:18) Monotest (03/18/23 13:41) Rapid Strep A Screen (03/18/23 13:41) Medications Given in ED Current Medications Medications Dose Ordered Sig/Raheem Route Start Time Stop Time Status Last Admin Dose Admin Ondansetron HCl 4 mg ONCE ONCE IVP 03/18/23 11:30 03/18/23 11:31 DC 03/18/23 11:44 4 MG Vital Signs/I&O 03/18/23 03/18/23 11:20 11:37 Temp 37.2 Pulse 103 Resp 22 B/P (MAP) 196/101 (132) Pulse Ox 96 O2 Delivery Room Air Room Air Capillary Refill : Progress Note : Progress Note Patient seen and evaluated, resting in bed, no acute distress. Based on exam and symptoms, septic work-up initiated including CBC, CMP, blood cultures x2, lactic acid, sputum culture, urinalysis, urine culture, magnesium, troponin, coags, EKG, chest x-ray. 1 L of IV fluids and Zofran ordered. 1211 Labs and chest x-ray reviewed. CBC shows elevated WBC 16.5, neutrophils elevated 11.6. CMP shows decreased CO2 16, slightly elevated anion gap 15, BUN elevated 27, creatinine elevated 2.03, GFR elevated 28. Lipase slightly elevated 81. Lactic acid elevated 3.23. Coags normal. Urinalysis shows 3+ protein, trace ketones, negative for infection. COVID and flu negative. Chest x-ray shows no acute pulmonary abnormality. Will administer 2 L total of IV fluids, this is more than the recommended 30/kg per ideal body weight. CT abdomen pelvis without contrast ordered to rule out abdominal pathology. Repeat troponin ordered. [address] reviewed. Negative for acute abnormality. Leukocytosis and elevated lactic acid may be related to dehydration. Recent Levaquin use may also be be the cause of patient's elevated lactic acid. Due to no evidence of acute bacterial infection, I will not order antibiotics at this time. I spoke Dr. Solares, hospitalist, regarding patient. She agrees to admit patient for unexplained leukocytosis and elevated lactic acid. She also agrees that no antibiotics are needed at this time, and that elevated white count and elevated lactic acid are likely related to dehydration. She will place admission orders. Plan of care discussed with patient. Patient agrees to admission. ECG Initial ECG Impression Date: Mar 18, 2023 Initial ECG Impression Time: 11:39 Initial ECG Rate: 95 Initial ECG Rhythm: Normal Sinus Initial ECG Intervals: Normal Initial ECG Impression: Nonspecific Changes Initial ECG Comparisson: Unchanged Diagnostic Imaging Diagonstic Imaging: Xray Plain Films/CT/US/NM/MRI: chest Comments [facility] [place], [place] NAME: JESSICA LONGO [facility] REC#: [id number] PT STATUS: REG ER : 1965 PHYSICIAN: CHE VALVERDE APRN ADMIT DATE: 03/18/23/ER Signed Date of Exam:03/18/23 CHEST 1 VIEW, AP/PA ONLY PATIENT HISTORY: Cough. TECHNIQUE: Single frontal view of the chest. COMPARISON: 02/18/2023. FINDINGS: The lung volumes are normal. No focal consolidation is seen. No large pleural effusion or pneumothorax is seen. The cardiomediastinal silhouette is normal in size and contour. No acute osseous abnormality is seen. IMPRESSION: No acute pulmonary abnormality seen. Dictated by: Dictated on workstation # [id number] Dict: 03/18/23 1205 Trans: 03/18/23 1208 [id number] Interpreted by: EDILMA CADENA MD Electronically signed by: EDILMA CADENA MD 03/18/23 1208 Departure Communication (Admissions) Time/Spoke to Admitting Phy: 13:12 Dr. Solares, hospitalist, see progress note. Impression Primary Impression: Leukocytosis Additional Impressions: Elevated lactic acid level Abdominal pain Chest wall pain Cough Disposition: ADMITTED INPATIENT Condition: Stable Admissions Decision to Admit Reason: Admit from ER (General) Decision to Admit/Date: Mar 18, 2023 Time/Decision to Admit Time: 13:12 Departure-Patient Inst. Referrals: AZUL ZAMORA APRN (PCP/Family) Primary Care Physician CHE VALVERDE APRN Mar 18, 2023 11:36
[2023-03-18 11:44] LABS: ALBUMIN 3.9 GM/DL (3.2-4.5); CHLORIDE 105 MMOL/L (98-107); POTASSIUM 4.6 MMOL/L (3.6-5.0); SODIUM 136 MMOL/L (135-145)
[2023-03-18 11:45] LABS: CALCIUM 9.9 MG/DL (8.5-10.1); INR 0.9 (0.8-1.4)
[2023-03-18 11:46] LABS: GLUCOSE 177 MG/DL (70-105); TOTAL PROTEIN 7.5 GM/DL (6.4-8.2)
[2023-03-18 11:47] LABS: CARBON DIOXIDE 16 MMOL/L (21-32); EOSINOPHILS % (MANUAL) 2 %; LYMPHOCYTES % (MANUAL) 27 %; MONOCYTES % (MANUAL) 1 %; NEUTROPHILS % (MANUAL) 70 %; RBC MORPH NORMAL
[2023-03-18 11:48] LABS: BILIRUBIN,TOTAL 0.3 MG/DL (0.1-1.0)
[2023-03-18 11:49] LABS: CLARITY,URINE CLOUDY; COLOR,URINE YELLOW; PROTEIN,URINE 3+ (NEGATIVE)
[2023-03-18 11:50] LABS: ALKALINE PHOSPHATASE 90 U/L (40-136); CREATININE SERUM 2.03 MG/DL (0.60-1.30); GFR ESTIMATED 28
[2023-03-18 11:50] LABS: AMORPHOUS SEDIMENT,UR FEW AMOR URATES /LPF; BACTERIA,URINE TRACE /HPF; BILIRUBIN,URINE NEGATIVE (NEGATIVE); GLUCOSE, URINE (UA) NEGATIVE (NEGATIVE); KETONES,URINE TRACE (NEGATIVE); LEUKOCYTE ESTERASE ,URINE NEGATIVE (NEGATIVE); NITRITE,URINE NEGATIVE (NEGATIVE); RBC,URINE 0-2 /HPF; SQUAMOUS EPITHELIAL CELL,UR 25-50 /HPF; WBC,URINE 0-2 /HPF
[2023-03-18 11:51] LABS: BUN/CREATININE RATIO 13
[2023-03-18 11:53] LABS: ALANINE AMINOTRANSFERASE 31 U/L (0-55); MAGNESIUM 1.9 MG/DL (1.6-2.4)
[2023-03-18 11:54] LABS: LIPASE 81 U/L (8-78)
--- NOTE | 2023-03-18 12:07 | Diagnostic Imaging Report ---
PATIENT HISTORY: Cough. TECHNIQUE: Single frontal view of the chest. COMPARISON: 02/18/2023. FINDINGS: The lung volumes are normal. No focal consolidation is seen. No large pleural effusion or pneumothorax is seen. The cardiomediastinal silhouette is normal in size and contour. No acute osseous abnormality is seen. IMPRESSION: No acute pulmonary abnormality seen. Dictated by: Dictated on workstation # [id number]
--- NOTE | 2023-03-18 12:50 | Diagnostic Imaging Report ---
PROCEDURE: CT chest, abdomen, and pelvis without contrast. TECHNIQUE: Multiple contiguous axial images were obtained through the chest, abdomen, and pelvis without the use of intravenous contrast. Auto Exposure Controls were utilized during the CT exam to meet ALARA standards for radiation dose reduction. INDICATION: Nausea and vomiting. Cough. Elevated white blood cell count. Right upper quadrant pain. COMPARISON: 03/26/2021. CT chest: The heart size is within normal limits. No pericardial effusion is present. There is no mediastinal, hilar, or axillary lymphadenopathy. The lungs demonstrate no pulmonary nodules or masses. There are no focal areas of consolidation. No pneumothoraces are present. No central endobronchial obstructing lesions are identified. There are no pleural effusions. No acute osseous abnormalities. CT abdomen and pelvis: Stable cysts are seen in the left kidney including a mostly calcified cyst. No hydronephrosis. No obstructive calculi. The urinary bladder is decompressed. The liver, spleen, pancreas, and adrenal glands have a normal noncontrast CT appearance. The gallbladder is surgically absent. There is no pathologically enlarged mesenteric or retroperitoneal adenopathy. The bowel loops are nondilated. The appendix is visualized in the right lower quadrant and has a normal appearance. There is no free fluid or free air. No acute osseous abnormalities. Scattered calcified aortic atherosclerotic plaque is seen without aneurysm. There is no free air, loculated collection, or adenopathy in the pelvis. IMPRESSION: 1. No acute abnormality in the chest, abdomen and pelvis. Dictated by: Dictated on workstation # [id number]
--- NOTE | 2023-03-18 13:44 | History & Physical-Hospitalist ---
History of Present Illness HPI/Chief Complaint Pt is a 57yoCF known to me from previous admission who presented to the ER due to abnormal labs. She reports that for the past few weeks she has had a poor appetite and nausea and vomiting. She has seen her primary care nurse practitioner, Janice Briggs, a couple of times this week due to the symptoms. She had a renal ultrasound done yesterday and labs done. She was found to have a mild leukocytosis which appears to be chronic and she follows with Dr. Rdz for. She also had an elevated creatinine. They treated her with multiple courses of antibiotics and she has continued to feel poorly. She reports she has lost 12 pounds this week and is hardly keeping anything in. She has a history of renal cancer and has been worried about her kidney function and a recurrence of her cancer. She also reports she has had intermittent cervical lymphadenopathy that has resolved but she was wondering if she had had strep or mono or even a false negative of COVID a couple of weeks ago. She does suffer from long COVID. She also has fibromyalgia. Her nausea has improved with fluids and Zofran since she arrived. Source: patient Date Seen 03/18/23 Time Seen by a Provider: 13:43 Attending Physician Janice Lees Aprn PCP Admitting Physician: Attending Physician: Referring Physician Date of Admission Home Medications & Allergies Home Medications Reviewed patient Home Medication Reconciliation performed by pharmacy medication reconciliations career resource technician and/or nursing. Patients Allergies have been reviewed. Allergies Allergies Coded Allergies Penicillins (Unverified Allergy, Severe, HIVES, THROAT SWELLS, DIFFICULTY BREATHING, 02/10/07) hydrocodone (Verified Allergy, Intermediate, "MAKES HER FEEL VERY BAD", 12/15/15) latex (Verified Allergy, Mild, RASH, 11/07/15) Cephalosporins (Unverified Allergy, Unknown, 12/16/15) empagliflozin (Verified Allergy, Unknown, 02/05/21) meropenem (Verified Allergy, Unknown, Itching, 11/07/22) itching and throat swelling tree nut (Unverified Allergy, Unknown, 10/08/21) Uncoded Allergies TAPE ( Adverse Reaction, Mild, RASH, WHELPS ON SKIN WHERE TAPE WAS., 02/10/07) Past Ddmubjm-Ucuahu-Eqloxa Hx Patient Social History Tobacco Use?: No Use of E-Cig and/or Vaping dev: No Substance use?: No Alcohol Use?: No Pt feels they are or have been: No Immunizations Up To Date First/Initial COVID19 Vaccinat: NO Second COVID19 Vaccination Cesario: NO Tetanus Booster (TDap): Unknown Date of Pneumonia Vaccine: Jun 27, 2013 Seasonal Allergies Seasonal Allergies: Yes Current Status status: No Communicates: Verbally Primary Language: Turkmen Preferred Spoken Language: Turkmen Implanted or Applied Medical D: None Past Medical History Surgeries: Abdominal, Section, Gallbladder, Hysterectomy, Oophorectomy, Rectal, Renal Asthma, Pneumonia, Chronic Bronchitis Currently Using CPAP: No Currently Using BIPAP: No Angina, High Cholesterol, Hypertension, Palpitations GOLD BLOWER History: Hysterectomy Sexually Transmitted Disease: No Kidney Infection, Kidney Stones Gastroesophageal Reflux, Diverticulosis, Polyps, Ulcer, Irritable Bowel Degenerate Disk Disease, Arthritis, Chronic Back Pain, Fractures Hypothyroidsim, Diabetes, Non-Insulin dep Kidney Did You Recieve Any Treatments: Yes What Type of Treatment Did You: Surgical Intervention Anxiety Blood Disorders: No Adverse Reaction/Blood Tranf: No Family Medical History Cardiovascular disease 19 FATHER, Onset:Unknown Completed stroke 19 FATHER, Onset:Unknown Congenital heart disease Dementia 19 FATHER, Onset:Unknown Diabetes mellitus 19 FATHER, Onset:Unknown FH: COPD (chronic obstructive pulmonary disease) 19 MOTHER, Onset:Unknown Hypertension 19 FATHER, Onset:Unknown Myocardial infarction 19 FATHER, Onset:Unknown Thyroid disease 19 MOTHER, Onset:Unknown No Pertinent Family Hx PAST SURGICAL HISTORY: - -HYSTERECTOMY/BILATERAL SALPINGO-OOPHORECTOMY -HEMORRHOIDECTOMY -MULTIPLE I&D'S OF ABSCESSES -PARTIAL LEFT NEPHRECTOMY FOR TUMOR -CHOLECYSTECTOMY Review of Systems Constitutional: see HPI Physical Exam Physical Exam Vital Signs Vital Signs - First Documented 03/18/23 11:20 Temp 37.2 Pulse 103 Resp 22 B/P (MAP) 196/101 (132) Pulse Ox 96 O2 Delivery Room Air Capillary Refill : Height, Weight, BMI Height: 5'3.00" Weight: 285lbs. 0.0oz. 129.980461ed; 47.00 BMI Method:Stated General Appearance: No Apparent Distress, Chronically ill, Obese Respiratory: Lungs Clear, No Respiratory Distress Cardiovascular: Regular Rate, Rhythm, No Murmur Gastrointestinal: Normal Bowel Sounds, Non Tender, Soft Neurologic/Psychiatric: Alert, Oriented x3 Results Results/Procedures Labs Laboratory Tests 03/18/23 11:25 Patient resulted labs reviewed. Imaging: Reviewed Imaging Report Assessment/Plan Admission Diagnosis dehydration Admission Status: Inpatient Order (span 2 midnights) Reason for Inpatient Admission: failed outpatient management Assessment and Plan GUILLERMINA Leukocytosis Abd pain/nausea/vomiting Lactic acidosis Continue IVF Do not think this is infectious in nature and has completed multiple course of abx as an outpatient- will defer further abx Will consult surgery for possible scope given persistent GI symptoms Already has had cholecystectomy Lactic acidosis likely due to dehydration Updated her PCNP Janice regarding admissiona nd plan HTN Asthma T2DM GERD Fibromyalgia Raynaud's Super obesity Long COVID Continue home meds as appropriate DVT ppx: Lovenox Copy Copies To 1: JENNIFER SUMNER MD, KATELYN M MD Mar 18, 2023 13:44
[2023-03-18] MEDS ORDERED: ACETAMINOPHEN 325 MG TABLET PO PRN (15:30)
[2023-03-18] MEDS ORDERED: LACTULOSE SYRUP 10GM/15ML 30ML UDC PO PRN (15:30)
[2023-03-18] MEDS ORDERED: BISACODYL 10 MG SUPPOSITORY PR PRN (15:30)
[2023-03-18] MEDS ORDERED: ONDANSETRON INJECTION 4 MG/2 ML (SDV) IV PRN (15:30)
[2023-03-18] MEDS ORDERED: CALCIUM CARBONATE 500 MG CHEW TABLET PO PRN (15:30)
[2023-03-18] MEDS ORDERED: ONDANSETRON 4 MG ORAL DISSOLVE TABLET PO PRN (15:30)
[2023-03-18] MEDS ORDERED: MILK OF MAGNESIA 400 MG/5 ML 30 ML UDC PO PRN (15:30)
[2023-03-18] MEDS ORDERED: ANTACID SUSPENSION 30 ML UDC PO PRN (15:30)
[2023-03-18] MEDS ORDERED: MELATONIN 3 MG TABLET PO PRN (15:30)
[2023-03-18 15:43] VITALS: BP 165/83
[2023-03-18 16:13] VITALS: BP 196/101
--- NOTE | 2023-03-18 16:20 | Consultation - Surgery ---
CARISA JOSEPH 03/18/23 1620: History of Present Illness History of Present Illness Patient Consulted On(raul/time) 03/18/23 16:13 Date Seen by Provider: Mar 18, 2023 Time Seen by Provider: 15:47 History of Present Illness Christa Sandoval was seen today for complaint of abdominal pain. Six weeks ago she had an episode of epigastric burning and stabbing pain; she took nexium, which relieved the pain. Since then, she has had abdominal pain, N/V/D on and off, with only a few days of relief in the last six weeks. She has taken gas x and pepcid which are helpful. Nothing seems to ilicit the pain, she could be sitting, standing, moving, and it could occur before or after a meal. She has not had much of an appetite and also not wanted to drink in fear of aggravating the pain. She has also had belching and gagging episodes which sometimes lead to vomiting. Her diarrhea this week has looked like "coffee grounds". She has also been coughing and at times tasted blood in her mouth, but never coughed up blood, just coughed up green mucus. Per patient, her last EGD and colonoscopy were two years ago by Dr. Taylor, but in chart review the last noted was in 2015 and two polyps were removed. Currently, she rates her pain at a 0, but it ranges from 0-10 throughout the day intermittently. Four weeks ago she had a sore throat and swollen lymph nodes and was started on doxycycline. She was still feeling poorly after that, so last 03/10 she was found to have elevated WBC and started on levaquin; she finished the course of levaquin on Tuesday. Allergies and Home Medications Allergies Coded Allergies: Penicillins (Unverified Allergy, Severe, HIVES, THROAT SWELLS, DIFFICULTY BREATHING, 02/10/07) hydrocodone (Verified Allergy, Intermediate, "MAKES HER FEEL VERY BAD", 12/15/15) latex (Verified Allergy, Mild, RASH, 11/07/15) Cephalosporins (Unverified Allergy, Unknown, 12/16/15) empagliflozin (Verified Allergy, Unknown, 02/05/21) meropenem (Verified Allergy, Unknown, Itching, 11/07/22) itching and throat swelling tree nut (Unverified Allergy, Unknown, 10/08/21) Uncoded Allergies: TAPE (Adverse Reaction, Mild, RASH, WHELPS ON SKIN WHERE TAPE WAS., 02/10/07) Patient Home Medication List Albuterol Sulfate (Ventolin Hfa) 1 Puff Puff, 1 PUFF INH Q8H PRN for SHORTNESS OF BREATH, (Reported) Entered as Reported by: WALTER VALENTINE on 07/21/20 1505 Allopurinol (Allopurinol) 100 Mg Tablet, 100 MG PO DAILY Prescribed by: STEPHANIE HENDRICKS on 11/15/22 1016 Alprazolam (Alprazolam) 1 Mg Tablet, 1 MG PO BID PRN for ANXIETY, (Reported) Entered as Reported by: CECI GARZON on 11/08/22 1138 Amlodipine Besylate (Amlodipine Besylate) 5 Mg Tablet, 5 MG PO DAILY PRN for BLOOD PRESSURE, (Reported) Entered as Reported by: CECI GARZON on 11/08/22 1138 Aspirin (Aspirin) 81 Mg Tab.chew, 81 MG PO HS, (Reported) Entered as Reported by: PETER TENORIO on 11/07/22 0159 Atorvastatin Calcium (Atorvastatin Calcium) 10 Mg Tablet, 10 MG PO DAILY, (Reported) Entered as Reported by: PETER TENORIO on 11/07/22 0300 Azelastine HCl (Astepro Allergy) 205.5 Mcg (0.15 %) Leon.pump, 1 SPRAY NS HS, (Reported) Entered as Reported by: CECI GARZON on 11/08/22 1138 Beclomethasone Dipropionate (Qvar Redihaler) 80 Mcg/Actuation Hfa.aeroba, 2 PUFF IH BID, (Reported) Entered as Reported by: CECI AGRZON on 11/08/22 1138 Budesonide/Glycopyr/Formoterol (Breztri Aerosphere Inhaler) 160 Mcg-9 Mcg-4.8 Mcg/Actuation Hfa.aer.ad, 2 PUFF INH BID, (Reported) Entered as Reported by: DUSTIN DAVILA on 10/05/21 1424 Celecoxib (Celecoxib) 100 Mg Capsule, 100 MG PO BID, (Reported) Entered as Reported by: PETER TENORIO on 11/07/22 0159 Cyclobenzaprine HCl (Cyclobenzaprine HCl) 5 Mg Tablet, 5 MG PO Q8H PRN for MUSCLE SPASMS, (Reported) Entered as Reported by: PETER TENORIO on 11/07/22 0300 Diphenhydramine HCl (Benadryl) 25 Mg Capsule, 25-50 MG PO Q6H PRN for ALLERGY SYMPTOMS, (Reported) Entered as Reported by: DUSTIN DAVILA on 11/11/22 1351 Dulaglutide (Trulicity) 0.75 Mg/0.5 Ml Pen.injctr, 0.75 MG SQ TUESDAY, (Reported) Entered as Reported by: CECI GARZON on 11/08/22 1138 Famotidine (Famotidine) 20 Mg Tablet, 20 MG PO BID, (Reported) Entered as Reported by: DUSTIN DAVILA on 10/05/21 1424 Ferrous Sulfate (Iron) 325 Mg (65 Mg Iron) Tablet, 325 MG PO Q48H, (Reported) Entered as Reported by: CECI GARZON on 11/08/22 1138 Fluconazole (Fluconazole) 100 Mg Tablet, 100 MG PO Q48H, (Reported) Entered as Reported by: DUSTIN DAVILA on 11/11/22 1351 Irbesartan (Irbesartan) 150 Mg Tablet, 150 MG PO HS, (Reported) Entered as Reported by: KADEN LAMB on 10/04/21 2130 Magnesium (Magnesium) 250 Mg Tablet, 500 MG PO HS, (Reported) Entered as Reported by: CECI GARZON on 11/08/22 1138 Metformin HCl (Metformin HCl ER) 500 Mg Tab.er.24, 500 MG PO BID, (Reported) Entered as Reported by: DUSTIN DAVILA on 10/05/21 1424 Montelukast Sodium (Montelukast Sodium) 10 Mg Tablet, 10 MG PO DAILY, (Reported) Entered as Reported by: PETER TENORIO on 11/07/22 0215 Propranolol HCl (Propranolol HCl) 40 Mg Tablet, 40 MG PO BID, (Reported) Entered as Reported by: SILVANO APONTE on 12/15/15 0846 Past Limgmlt-Zdwiyp-Pcudja Hx Patient Social History 2nd Hand Smoke Exposure: No Recent Hopitalizations: No Alcohol Use?: No Immunizations Up To Date Tetanus Booster (TDap): Unknown Date of Pneumonia Vaccine: Jun 27, 2013 Seasonal Allergies Seasonal Allergies: Yes Surgeries History of Surgeries: Yes (SURGERY ON BOILS, HEMORRHOIDECTOMY, TUMOR REMOVED FROM L KIDNEY) Surgeries: Abdominal, Section, Eye Surgery (laser), Gallbladder, Hysterectomy, Nephrectomy (left partial), Oophorectomy, Rectal (hemorrhoidectomy), Renal (lithotripsy) Respiratory History of Respiratory Disorde: Yes ("EXERCISE INDUCED ASTHMA", COVID-01 August 2020) Respiratory Disorders: Asthma, Pneumonia, Chronic Bronchitis Cardiovascular History of Cardiac Disorders: Yes Cardiac Disorders: Angina, High Cholesterol, Hypertension, Palpitations Neurological History of Neurological Disord: No 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 System Hx 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 Disorders: No Sexually Transmitted Disease: 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 Genitourinary History of Genitourinary Disor: Yes (left renal CA; partial nephroectomy) Genitourinary Disorders: Kidney Infection, Kidney Stones Gastrointestinal History of Gastrointestinal Di: Yes (Fatty Liver Disease, UMBILICAL HERNIA) Gastrointestinal Disorders: Gastroesophageal Reflux, Diverticulosis, Polyps, Ulcer, Irritable Bowel Musculoskeletal History of Musculoskeletal Dis: Yes (STENOSIS IN LOWER BACK, OSTEOARTHRITIS, DJD) Musculoskeletal Disorders: Degenerate Disk Disease, Arthritis (rheumatoid), C hronic Back Pain, Fractures, Gout Endocrine History of Endocrine Disorders: Yes (MORBIDLY OBESE) Endocrine Disorders: Hypothyroidsim, Diabetes, Non-Insulin dep HEENT History of HEENT Disorders: No Cancer History of Cancer: Yes Cancer: Kidney Psychosocial History of Psychiatric Problem: Yes (PANIC ATTACKS ) Behavioral Health Disorders: Anxiety Integumentary History of Skin or Integumenta: Yes (CANDIDAL INFECTION OF SKIN OF PANNUS; "BOILS"; R FOOT CELLULITIS) Blood Transfusions History of Blood Disorders: No Adverse Reaction to a Blood Tr: No Family Medical History Significant Family History: CAD Under 55 Years Old (brother), CAD Over 55 Years Old (mother and father), Hypertension (mother, father), Seizures (sister), Stroke (father) Family Medial History: Cardiovascular disease 19 FATHER, Onset:Unknown Completed stroke 19 FATHER, Onset:Unknown Congenital heart disease Dementia 19 FATHER, Onset:Unknown Diabetes mellitus 19 FATHER, Onset:Unknown FH: COPD (chronic obstructive pulmonary disease) 19 MOTHER, Onset:Unknown Hypertension 19 FATHER, Onset:Unknown Myocardial infarction 19 FATHER, Onset:Unknown Thyroid disease 19 MOTHER, Onset:Unknown Review of Systems-General Constitutional: chills; No diaphoresis, No dizziness Respiratory: cough (productive of some green mucus ); No hemoptysis; phlegm Cardiovascular: chest pain; No edema Gastrointestinal: RUQ, abdominal pain, diarrhea (with appearance of "coffee grounds") Musculoskeletal: joint pain (hx of RA) Skin: rash (excema on left arm), other (yeast in abdominal pannus and under right breast) Psychiatric/Neurological: Anxiety, Headache Physical Exam-General Problems Physical Exam Vital Signs Vital Signs - First Documented 03/18/23 11:20 Temp 37.2 Pulse 103 Resp 22 B/P (MAP) 196/101 (132) Pulse Ox 96 O2 Delivery Room Air Capillary Refill : General Appearance: no apparent distress, obese HEENT: PERRL/EOMI Neck: non-tender, supple Respiratory: chest non-tender, lungs clear, normal breath sounds, no respiratory distress, no accessory muscle use Cardiovascular: regular rate, rhythm, no murmur Gastrointestinal: soft, no organomegaly, tenderness (in right upper quadrant) Neurologic/Psychiatric: alert, oriented x 3 Skin: normal color, other (healing yeast infections in abdominal pannus and under right breast; skin is pink and moist) Data Review Labs Laboratory Tests 03/18/23 11:25: White Blood Count 16.5H, Red Blood Count 4.41, Hemoglobin 11.8, Hematocrit 38, Mean Corpuscular Volume 86, Mean Corpuscular Hemoglobin 27, Mean Corpuscular Hemoglobin Concent 31L, Red Cell Distribution Width 14.1, Platelet Count 341, Mean Platelet Volume 11.2, Immature Granulocyte % (Auto) 0, Neutrophils (%) (Auto) 70, Lymphocytes (%) (Auto) 18, Monocytes (%) (Auto) 8, Eosinophils (%) (Auto) 4, Basophils (%) (Auto) 0, Neutrophils # (Auto) 11.6H, Lymphocytes # (Auto) 3.0, Monocytes # (Auto) 1.2H, Eosinophils # (Auto) 0.6H, Basophils # (Auto) 0.1, Immature Granulocyte # (Auto) 0.1, Neutrophils % (Manual) 70, Lymphocytes % (Manual) 27, Monocytes % (Manual) 1, Eosinophils % (Manual) 2, Blood Morphology Comment NORMAL, Prothrombin Time 13.0, INR Comment 0.9, Activated Partial Thromboplast Time 29, Sodium Level 136, Potassium Level 4.6, Chloride Level 105, Carbon Dioxide Level 16L, Anion Gap 15H, Blood Urea Nitrogen 27H, Creatinine 2.03H, Estimat Glomerular Filtration Rate 28, BUN/Creatinine Ratio 13, Glucose Level 177H, Lactic Acid Level 3.23*H, Calcium Level 9.9, Corrected Calcium 10.0, Magnesium Level 1.9, Total Bilirubin 0.3, Aspartate Amino Transf (AST/SGOT) 30, Alanine Aminotransferase (ALT/SGPT) 31, Alkaline Phosphatase 90, Troponin I < 0.028, Total Protein 7.5, Albumin 3.9, Lipase 81H 03/18/23 11:34: Urine Color YELLOW, Urine Clarity CLOUDY, Urine pH 5.0, Urine Specific Tyro 1.020, Urine Protein 3+H, Urine Glucose (UA) NEGATIVE, Urine Ketones TRACEH, Urine Nitrite NEGATIVE, Urine Bilirubin NEGATIVE, Urine Urobilinogen 0.2, Urine Leukocyte Esterase NEGATIVE, Urine RBC (Auto) NEGATIVE, Urine RBC 0-2, Urine WBC 0-2, Urine Squamous Epithelial Cells 25-50H, Urine Crystals PRESENTH, Urine Amorphous Sediment FEW NANCY URATESH, Urine Bacteria TRACE, Urine Casts NONE, Urine Mucus NEGATIVE, Urine Culture Indicated NO 03/18/23 11:35: Influenza Type A (RT-PCR) Not Detected, Influenza Type B (RT-PCR) Not Detected, SARS-CoV-2 RNA (RT-PCR) Not Detected 03/18/23 12:19: Troponin I < 0.028 03/18/23 13:52: Lactic Acid Level 2.05*H, Monoscreen NEGATIVE 03/18/23 13:59: Group A Streptococcus Screen Not Detected 03/18/23 14:04: Radiology CT abdomen and pelvis: Stable cysts are seen in the left kidney including a mostly calcified cyst. No hydronephrosis. No obstructive calculi. The urinary bladder is decompressed. The liver, spleen, pancreas, and adrenal glands have a normal noncontrast CT appearance. The gallbladder is surgically absent. There is no pathologically enlarged mesenteric or retroperitoneal adenopathy. The bowel loops are nondilated. The appendix is visualized in the right lower quadrant and has a normal appearance. There is no free fluid or free air. No acute osseous abnormalities. Scattered calcified aortic atherosclerotic plaque is seen without aneurysm. There is no free air, loculated collection, or adenopathy in the pelvis. IMPRESSION: 1. No acute abnormality in the chest, abdomen and pelvis. Assessment/Plan Assessment/Plan Assessment/Plan abdominal pain - unknown etiology melena renal insufficiency leukocytosis lactic acidosis CT chest, abdomen and pelvis showed no acute abnormalities. Get stool occult blood to assess melena. The patient stated that since having Covid she has had a consistently elevated WBC count of 10-14; her WBC today is 16.5 but no source of infection is seen on CT. Continue to monitor for melena. Her last colonoscopy was in 2016 and two polyps were removed, but pathology of those polyps is not noted in this chart review; try to get records to determine if she needs an outpatient colonoscopy after this stay. PUSHPA MATHEW DO 03/18/23 1754: History of Present Illness History of Present Illness Time Seen by Provider: 16:46 History of Present Illness Surger asked to consult regarding abdominal pain. HPI per ED: 57-year-old female presents to the ER with complaint of being sick for the last 6 weeks. She reports that she has seen her primary care provider several times, they placed her on Levaquin, she finished it on Tuesday, 03/13. She reports intermittent nausea and vomiting, intermittent coffee-ground emesis. She reports last week she was having vomiting and diarrhea at the same time. She reports cough with green phlegm, and intermittent fever. She reports that she started having midsternal chest pain starting at 9 AM this morning and difficulty catching her breath. She reports that last night she started to become dizzy, reports continued dizziness today. Reports right upper quadrant abdominal pain today, states that the pain moves around in her abdomen. She has had her gallbladder removed. She denies dysuria. When I spoke to pt she relates abdominal pain, enlarged LN in her neck associated with "swallowing razor blades", nausea, vomiting, diarrhea....."it's not just one thing.". She admits to pain for many years and long Covid, "but over the last 6 weeks this is different". Allergies and Home Medications Allergies Coded Allergies: Penicillins (Unverified Allergy, Severe, HIVES, THROAT SWELLS, DIFFICULTY BREATHING, 02/10/07) hydrocodone (Verified Allergy, Intermediate, "MAKES HER FEEL VERY BAD", 12/15/15) latex (Verified Allergy, Mild, RASH, 11/07/15) Cephalosporins (Unverified Allergy, Unknown, 12/16/15) empagliflozin (Verified Allergy, Unknown, 02/05/21) meropenem (Verified Allergy, Unknown, Itching, 11/07/22) itching and throat swelling tree nut (Unverified Allergy, Unknown, 10/08/21) Uncoded Allergies: TAPE (Adverse Reaction, Mild, RASH, WHELPS ON SKIN WHERE TAPE WAS., 02/10/07) Patient Home Medication List Home Medication List Reviewed: Yes Albuterol Sulfate (Ventolin Hfa) 1 Puff Puff, 1 PUFF INH Q8H PRN for SHORTNESS OF BREATH, (Reported) Entered as Reported by: WALTER VALENTINE on 07/21/20 1505 Allopurinol (Allopurinol) 100 Mg Tablet, 100 MG PO DAILY Prescribed by: STEPHANIE HENDRICKS on 11/15/22 1016 Alprazolam (Alprazolam) 1 Mg Tablet, 1 MG PO BID PRN for ANXIETY, (Reported) Entered as Reported by: CECI GARZON on 11/08/22 1138 Amlodipine Besylate (Amlodipine Besylate) 5 Mg Tablet, 5 MG PO DAILY PRN for BLOOD PRESSURE, (Reported) Entered as Reported by: CECI GARZON on 11/08/22 1138 Aspirin (Aspirin) 81 Mg Tab.chew, 81 MG PO HS, (Reported) Entered as Reported by: PETER TENORIO on 11/07/22 0159 Atorvastatin Calcium (Atorvastatin Calcium) 10 Mg Tablet, 10 MG PO DAILY, (Reported) Entered as Reported by: PETER TENORIO on 11/07/22 0300 Azelastine HCl (Astepro Allergy) 205.5 Mcg (0.15 %) Leon.pump, 1 SPRAY NS HS, (Reported) Entered as Reported by: CECI GARZON on 11/08/22 1138 Beclomethasone Dipropionate (Qvar Redihaler) 80 Mcg/Actuation Hfa.aeroba, 2 PUFF IH BID, (Reported) Entered as Reported by: CECI GARZON on 11/08/22 1138 Budesonide/Glycopyr/Formoterol (Breztri Aerosphere Inhaler) 160 Mcg-9 Mcg-4.8 Mcg/Actuation Hfa.aer.ad, 2 PUFF INH BID, (Reported) Entered as Reported by: DUSTIN DAVILA on 10/05/21 142 Celecoxib (Celecoxib) 100 Mg Capsule, 100 MG PO BID, (Reported) Entered as Reported by: PETER TENORIO on 11/07/22 0159 Cyclobenzaprine HCl (Cyclobenzaprine HCl) 5 Mg Tablet, 5 MG PO Q8H PRN for MUSCLE SPASMS, (Reported) Entered as Reported by: PETER TENORIO on 11/07/22 0300 Diphenhydramine HCl (Benadryl) 25 Mg Capsule, 25-50 MG PO Q6H PRN for ALLERGY SYMPTOMS, (Reported) Entered as Reported by: DUSTIN DAVILA on 11/11/22 135 Dulaglutide (Trulicity) 0.75 Mg/0.5 Ml Pen.injctr, 0.75 MG SQ TUESDAY, (Reported) Entered as Reported by: CECI GARZON on 11/08/22 113 Famotidine (Famotidine) 20 Mg Tablet, 20 MG PO BID, (Reported) Entered as Reported by: DUSTIN DAVILA on 10/05/21 142 Ferrous Sulfate (Iron) 325 Mg (65 Mg Iron) Tablet, 325 MG PO Q48H, (Reported) Entered as Reported by: CECI GARZON on 11/08/22 113 Fluconazole (Fluconazole) 100 Mg Tablet, 100 MG PO Q48H, (Reported) Entered as Reported by: DUSTIN DAVILA on 11/11/22 135 Irbesartan (Irbesartan) 150 Mg Tablet, 150 MG PO HS, (Reported) Entered as Reported by: KDAEN LAMB on 10/04/212129 Magnesium (Magnesium) 250 Mg Tablet, 500 MG PO HS, (Reported) Entered as Reported by: CECI GARZON on 11/08/22 113 Metformin HCl (Metformin HCl ER) 500 Mg Tab.er.24, 500 MG PO BID, (Reported) Entered as Reported by: DUSTIN DAVILA on 10/05/21 142 Montelukast Sodium (Montelukast Sodium) 10 Mg Tablet, 10 MG PO DAILY, (Reported) Entered as Reported by: PETER TENORIO on 11/07/22 0215 Propranolol HCl (Propranolol HCl) 40 Mg Tablet, 40 MG PO BID, (Reported) Entered as Reported by: SILVANO APONTE on 12/15/15 0846 Past Xfevgcc-Whjoqy-Dfkdim Hx Patient Social History Smoking Status: Never a Smoker Alcohol Use?: No Surgeries History of Surgeries: Yes Surgeries: Abdominal, Section, Eye Surgery (laser), Gallbladder, Hysterectomy, Nephrectomy (left partial), Oophorectomy, Rectal (hemorrhoidectomy), Renal (lithotripsy) Respiratory History of Respiratory Disorde: Yes Respiratory Disorders: Sleep Apnea, COPD Cardiovascular History of Cardiac Disorders: Yes Cardiac Disorders: Coronary Artery Disease Neurological History of Neurological Disord: Yes Neurological Disorders: Neuropathy Genitourinary History of Genitourinary Disor: No Gastrointestinal History of Gastrointestinal Di: Yes Gastrointestinal Disorders: Gastroesophageal Reflux, Gall Bladder Disease Musculoskeletal History of Musculoskeletal Dis: Yes Musculoskeletal Disorders: Degenerate Disk Disease, Arthritis (rheumatoid), Chronic Back Pain, Fractures, Gout Endocrine History of Endocrine Disorders: Yes Endocrine Disorders: Diabetes, Non-Insulin dep HEENT History of HEENT Disorders: Yes Loss of Vision: Bilateral Hearing Impairment: Hard of Hearing Cancer History of Cancer: Yes Cancer: Kidney Psychosocial History of Psychiatric Problem: No Family Medical History Significant Family History: CAD Under 55 Years Old (brother), CAD Over 55 Years Old (mother and father), Hypertension (mother, father), Seizures (sister), Stroke (father) Family Medial History: Cardiovascular disease 19 FATHER, Onset:Unknown Completed stroke 19 FATHER, Onset:Unknown Congenital heart disease Dementia 19 FATHER, Onset:Unknown Diabetes mellitus 19 FATHER, Onset:Unknown FH: COPD (chronic obstructive pulmonary disease) 19 MOTHER, Onset:Unknown Hypertension 19 FATHER, Onset:Unknown Myocardial infarction 19 FATHER, Onset:Unknown Thyroid disease 19 MOTHER, Onset:Unknown Review of Systems-General Constitutional: chills; No diaphoresis, No dizziness EENTM: No hoarseness, No mouth swelling, No epistaxis Respiratory: cough (productive of some green mucus ); No hemoptysis; phlegm Cardiovascular: chest pain; No edema Gastrointestinal: RUQ, abdominal pain, diarrhea (with appearance of "coffee grounds") Genitourinary: No hematuria Musculoskeletal: joint pain (hx of RA), joint swelling Skin: rash (excema on left arm), other (yeast in abdominal pannus and under right breast) Psychiatric/Neurological: Anxiety, Headache Physical Exam-General Problems Physical Exam General Appearance: mild distress, obese Eyes: Bilateral Eye PERRL, Bilateral Eye EOMI HEENT: pharynx normal; No scleral icterus (R), No scleral icterus (L) Neck: non-tender, supple Respiratory: chest non-tender, lungs clear, normal breath sounds, no respiratory distress, no accessory muscle use Cardiovascular: regular rate, rhythm, no murmur Gastrointestinal: soft, no organomegaly, tenderness (in right upper quadrant), hernia (umbilical) Rectal: deferred Extremities: no calf tenderness, normal capillary refill Neurologic/Psychiatric: alert, oriented x 3 Skin: normal color, other (healing yeast infections in abdominal pannus and under right breast; skin is pink and moist) Lymphatic: no adenopathy (neck, axilla) Assessment/Plan Assessment/Plan Assessment/Plan abdominal pain - unknown etiology melena renal insufficiency leukocytosis lactic acidosis CT chest, abdomen and pelvis showed no acute abnormalities. Get stool occult blood to assess melena. The patient stated that since having Covid she has had a consistently elevated WBC count of 10-14; her WBC today is 16.5 but no source of infection is seen on CT. Continue to monitor for melena. Her last colonoscopy was in 2016 and two polyps were removed, but pathology of those polyps is not noted in this chart review; try to get records to determine if she needs an outpatient colonoscopy after this stay. Nothing indicating need for surgical intervention at this time, will monitor. Supervisory-Addendum Brief Verification & Attestation Participated in pt care: history, MDM, physical Personally performed: exam, history, MDM, supervision of care Care discussed with: Medical Student Procedures: n/a Verification and Attestation of Medical Student E/M Service A medical student performed and documented this service. I then reviewed and verified all information documented by the medical student and made modifications to such information, when appropriate. I personally performed a physical exam, medical decision making and then discussed any differences between the notes and made revisions as necessary to create one note. Pushpa Mathew , 03/18/23 , 18:00 CARISA JOSEPH Mar 18, 2023 16:20 PUSHPA MATHEW DO Mar 18, 2023 17:54
[2023-03-18] MEDS: NS IV 1000 ML 1,000 ML IV SCH (16:32)
[2023-03-18] MEDS: inSUlin ASPART 1 UNIT/0.01 ML (PER UNIT) SC SCH ×2 (16:56→20:21)
[2023-03-18] MEDS ORDERED: RT-ALBUTEROL SULF 2.5 MG/3 ML PRE-MIX VIAL INH PRN (17:00)
[2023-03-18] MEDS ORDERED: DULA1.5P2 SQ (18:25)
[2023-03-18] MEDS ORDERED: SIME80TA16 PO (18:28)
[2023-03-18] MEDS ORDERED: METF-865 (18:28)
[2023-03-18] MEDS ORDERED: NYST15PO4 (18:28)
[2023-03-18 19:35] VITALS: BP 137/76
[2023-03-18] MEDS ORDERED: ALPRAZolam 1 MG TABLET PO PRN (19:45)
[2023-03-18] MEDS ORDERED: amLODIPine 5 MG TABLET PO PRN (19:45)
[2023-03-18] MEDS ORDERED: FERROUS SULFATE 325 MG (IRON) TABLET PO SCH (19:45)
[2023-03-18] MEDS: RT-ALBUTEROL SULF 2.5 MG/3 ML PRE-MIX VIAL INH SCH (20:58)
[2023-03-18] MEDS ORDERED: [UNRECOGNIZED DRUG - REMARK] NS SCH (21:00)
[2023-03-18] MEDS ORDERED: VALSARTAN 80 MG (DIOVAN) TAB PO SCH (21:00)
[2023-03-18] MEDS ORDERED: NON-FORMULARY MEDICATION 1 EA EA (Irbesartan 150 MG) PO SCH (21:00)
[2023-03-18] MEDS ORDERED: NON-FORMULARY MEDICATION 1 EA EA (Propranolol HCl 40 MG) PO SCH (21:00)
[2023-03-18] MEDS ORDERED: diphenhydrAMINE 25 MG TABLET PO PRN (21:45)
[2023-03-18] MEDS: FAMOTIDINE 20 MG TABLET PO SCH (21:49)
[2023-03-18] MEDS: PROPRANOLOL 20 MG TABLET PO SCH (21:49)
[2023-03-18] MEDS: MAGNESIUM OXIDE 400 MG TABLET PO SCH (22:00)
[2023-03-18] MEDS: CYCLOBENZAPRINE 10 MG TABLET PO PRN (22:45)
[2023-03-18] MEDS: SIMETHICONE 80 MG CHEWABLE TABLET PO SCH (22:45)
[2023-03-19] VITALS (7 sets, daily range): BP systolic 136–170; BP diastolic 63–83
[2023-03-19] MEDS: NS IV 1000 ML 1,000 ML IV SCH ×4 (00:29→18:47)
[2023-03-19] MEDS: RT-ALBUTEROL SULF 2.5 MG/3 ML PRE-MIX VIAL INH SCH ×4 (03:28→21:34)
[2023-03-19] MEDS: inSUlin ASPART 1 UNIT/0.01 ML (PER UNIT) SC SCH ×4 (05:47→21:54)
[2023-03-19 06:34] LABS: HEMATOCRIT 35 % (35-52); HEMOGLOBIN 10.6 g/dL (11.5-16.0); MEAN CORPUSCULAR HEMOGLOBIN 27 pg (25-34); MEAN CORPUSCULAR HGB CONC 31 g/dL (32-36); MEAN CORPUSCULAR VOLUME 87 fL (80-99); MEAN PLATELET VOLUME 11.6 fL (9.0-12.2); PLATELET COUNT 287 10^3/uL (130-400); WHITE BLOOD COUNT 9.7 10^3/uL (4.3-11.0)
[2023-03-19 06:45] LABS: POTASSIUM 4.4 MMOL/L (3.6-5.0)
[2023-03-19 06:46] LABS: CALCIUM 9.1 MG/DL (8.5-10.1)
[2023-03-19 06:50] LABS: CREATININE SERUM 1.7 MG/DL (0.60-1.30)
[2023-03-19] MEDS: PROPRANOLOL 20 MG TABLET PO SCH ×2 (08:22→20:11)
[2023-03-19] MEDS: MONTELUKAST 10 MG TABLET PO SCH (08:22)
[2023-03-19] MEDS: FAMOTIDINE 20 MG TABLET PO SCH ×2 (08:22→20:11)
[2023-03-19] MEDS: SIMETHICONE 80 MG CHEWABLE TABLET PO SCH ×2 (08:22→20:11)
[2023-03-19] MEDS: ENOXAPARIN 40 MG/0.4 ML SYRINGE SC SCH ×2 (08:23→20:11)
--- NOTE | 2023-03-19 08:44 | Physical Therapy Evaluation ---
PT Evaluation-General Medical Diagnosis Admission Date Mar 18, 2023 at 15:23 Medical Diagnosis: dehydration Onset Date: Mar 18, 2023 Therapy Diagnosis Therapy Diagnosis: debility Height/Weight Height (Feet): 5 Height (Inches): 3.00 Weight (Pounds): 285 Weight (Ounces): 0.0 Precautions Precautions/Isolations: Standard Precautions Weight Bear Status Full Weight Bearing Full Weight Bearing Referral Physician: Jie Reason for Referral: Evaluation/Treatment Medical History Pertinent Medical History: DM, GERD, HTN Social History Home: Single Level Current Living Status: Other Family PT Steps Into Home: 2 PT Steps Inside Home: 1 Prior Prior Level of Function SCALE: Activities may be completed with or without assistive devices. 0-Otrpzkbzzz-hovyxmb completes the activity by him/herself with no assistance from a helper. 5-Set-up or Clean-up Assistance-helper sets up or cleans up; patient completes activity. [place] assists only prior to or following the activity. 4-Supervision or Touching Assistance-helper provides verbal cues and/or touching/steadying and/or contact guard assistance as patient completes activity. Assistance may be provided throughout the activity or intermittently. 3-Partial/Moderate Assistance-helper does LESS THAN HALF the effort. [place] lifts, holds or supports trunk or limbs, but provides less than half the effort. 2-Substantial/Maximal Assistance-helper does MORE THAN HALF the effort. [place] lifts or holds trunk or limbs and provides more than half the effort. 5-Rcjgusddx-bhkidf does ALL the effort. Patient does none of the effort to complete the activity. Or, the assistance of 2 or more helpers is required for the patient to complete the activity. If activity was not attempted, code reason: 7-Patient Refused. 9-Not Applicable-not attempted and the patient did not perform the activity before the current illness, exacerbation or injury. 10-Not Attempted due to Environmental Limitations-(lack of equipment, weather restraints, etc.). 88-Not Attempted due to Medical Conditions or Safety Concerns. Bed Mobility: 6 Transfers (B,C,W/C): 6 Gait: 6 Stairs: 6 Indoor Mobility (Ambulation): Independent Stairs: Independent Prior Devices Use: Walker PT Evaluation-Current Subjective Patient admitted secondary to abnormal labs. She reports that she is feeling better today. Pain Numeric Pain Scale: 0-No Pain Objective Patient Orientation: Person, Place, Time, Situation Attachments: IV ROM/Strength Strength Lower Extremities 4/5 grossly Transfers Roll Left to Right (QC): 5 Sit to Lying (QC): 5 Lying to Sitting/Side of Bed(Q: 5 Sit to Stand (QC): 5 Chair/Bdj-rm-Oesvl Xfer(QC): 5 Toilet Transfer (QC): 5 Gait Does the Patient Walk?: Yes Mode of Locomotion: Walk Anticipated Mode of Locomotion: Walk Walk 10 feet (QC): 5 Walk 50 ft with 2 Turns(QC): 5 Walk 150 ft (QC): 88 Distance: 100' Gait Assistive Device: FWW Balance Sitting Static: Normal Sitting Dynamic: Good Standing Static: Fair Standing Dynamic: Fair Assessment/Needs 57 y.o. female with a diagnosis of dehydration. She has functional mobility limitations that justify skilled therapy. Rehab Potential: Good PT Fdc Goals Fdc Goals PT [employer] Goals Time Frame: Mar 26, 2023 Roll Left & Right (QC): 6 Sit to Lying (QC): 6 Lying-Sitting on Side/Bed(QC): 6 Sit to Stand (QC): 6 Chair/Vwo-cl-Cdscr Xfer(QC): 6 Toilet Transfer (QC): 6 Does the Patient Walk: Yes Walk 10 feet (QC): 6 Walk 50ft with 2 Turns (QC): 6 Walk 150 ft (QC): 6 Walking 10ft on Uneven Surface: 6 1 Step (curb) (QC): 6 4 Steps (QC): 6 12 Steps (QC): 6 Picking up an Object (QC): 6 PT Plan Problem List Problem List: Activity Tolerance, Functional Strength, Safety, Balance, Gait, Transfer, Bed Mobility, ROM Treatment/Plan Treatment Plan: Continue Plan of Care Treatment Plan: Bed Mobility, Education, Functional Activity Bunny, Functional Strength, Gait, Safety, Therapeutic Exercise, Transfers Treatment Duration: Mar 26, 2023 Frequency: 6 times per week Estimated Hrs Per Day: .5 hour per day Time Time In: 820 Time Out: 835 DATE: Mar 19, 2023 Total Billed Treatment Time: 15 Total Billed Treatment 1, EV Low complexity RUSTAM MOYA PT Mar 19, 2023 08:44
[2023-03-19] MEDS ORDERED: PHARMACY TO DOSE SQ SCH (09:00)
--- NOTE | 2023-03-19 11:11 | Progress Note - Surgery ---
CARISA JOSEPH 03/19/23 1111: Subjective Date Seen by a Provider: Mar 19, 2023 Time Seen by a Provider: 10:36 Subjective/Events-last exam Christa Sandoval was seen lying in her bed this morning. She is feeling much better than she was yesterday. She was able to eat half of her breakfast this morning without any nausea or vomiting. She has also not had the belching she was having yesterday. She is ambulating to the bathroom to urinate, but has not had a bowel movement; she is passing gas. She is complaining of a little headache this morning that is unchanged from yesterday. Review of Systems General: No Chills, No Night Sweats HEENT: Head Aches; No Visual Changes Pulmonary: No Dyspnea, No Cough Cardiovascular: No: Chest Pain, Palpitations Gastrointestinal: No: Nausea, Vomiting, Abdominal Pain Genitourinary: No Dysuria, No Frequency Focused Exam Lactate Level 03/18/23 11:25: Lactic Acid Level 3.23*H 03/18/23 13:52: Lactic Acid Level 2.05*H 03/18/23 14:04: Lactic Acid Level 1.81 Objective Exam Vital Signs Date Time Temp Pulse Resp B/P (MAP) Pulse Ox O2 Delivery O2 Flow Rate FiO2 03/19/23 08:58 Room Air 03/19/23 08:34 97 Room Air 03/19/23 07:21 37.0 77 16 170/83 (112) 97 Room Air 03/19/23 04:31 36.9 78 18 137/63 (87) 96 Room Air 03/19/23 03:28 97 Room Air 03/19/23 00:30 37.4 80 20 148/68 (94) 92 Room Air 03/18/23 20:58 99 Room Air 03/18/23 20:00 Room Air 03/18/23 19:35 36.8 79 18 137/76 (96) 94 Room Air 03/18/23 16:13 37.2 103 96 21 03/18/23 16:00 Room Air 03/18/23 15:43 36.3 85 19 165/83 (110) 96 Room Air 03/18/23 14:08 37.2 85 14 158/65 99 Room Air 03/18/23 11:37 Room Air 11/3/23 11:20 37.2 103 22 196/101 (132) 96 Room Air I & O 03/19/23 07:00 Intake Total 2900 ml Output Total 850 ml Balance 2050 ml Capillary Refill : General Appearance: No Apparent Distress, Obese HEENT: PERRL/EOMI, Moist Mucous Membranes; No Scleral Icterus (L), No Scleral Icterus (R) Neck: Non Tender, Supple Respiratory: Chest Non Tender, Lungs Clear, Normal Breath Sounds, No Accessory Muscle Use, No Respiratory Distress Cardiovascular: Regular Rate, Rhythm, No Murmur Gastrointestinal: non tender, soft, no organomegaly, hernia (umbilical) Extremity: No Calf Tenderness, No Pedal Edema Neurologic/Psychiatric: Alert, Oriented x3 Skin: Normal Color, Other (healing yeast infections in abdominal pannus and under right breast; skin is pink and moist) Results Lab Laboratory Tests 03/18/23 11:25: White Blood Count 16.5H, Red Blood Count 4.41, Hemoglobin 11.8, Hematocrit 38, Mean Corpuscular Volume 86, Mean Corpuscular Hemoglobin 27, Mean Corpuscular Hemoglobin Concent 31L, Red Cell Distribution Width 14.1, Platelet Count 341, Mean Platelet Volume 11.2, Immature Granulocyte % (Auto) 0, Neutrophils (%) (Auto) 70, Lymphocytes (%) (Auto) 18, Monocytes (%) (Auto) 8, Eosinophils (%) (Auto) 4, Basophils (%) (Auto) 0, Neutrophils # (Auto) 11.6H, Lymphocytes # (Auto) 3.0, Monocytes # (Auto) 1.2H, Eosinophils # (Auto) 0.6H, Basophils # (Aut o) 0.1, Immature Granulocyte # (Auto) 0.1, Neutrophils % (Manual) 70, Lymphocytes % (Manual) 27, Monocytes % (Manual) 1, Eosinophils % (Manual) 2, Blood Morphology Comment NORMAL, Prothrombin Time 13.0, INR Comment 0.9, Activated Partial Thromboplast Time 29, Sodium Level 136, Potassium Level 4.6, Chloride Level 105, Carbon Dioxide Level 16L, Anion Gap 15H, Blood Urea Nitrogen 27H, Creatinine 2.03H, Estimat Glomerular Filtration Rate 28, BUN/Creatinine Ratio 13, Glucose Level 177H, Lactic Acid Level 3.23*H, Calcium Level 9.9, Corrected Calcium 10.0, Magnesium Level 1.9, Total Bilirubin 0.3, Aspartate Amino Transf (AST/SGOT) 30, Alanine Aminotransferase (ALT/SGPT) 31, Alkaline Phosphatase 90, Troponin I < 0.028, Total Protein 7.5, Albumin 3.9, Lipase 81H 03/18/23 11:34: Urine Color YELLOW, Urine Clarity CLOUDY, Urine pH 5.0, Urine Specific Ucon 1.020, Urine Protein 3+H, Urine Glucose (UA) NEGATIVE, Urine Ketones TRACEH, Urine Nitrite NEGATIVE, Urine Bilirubin NEGATIVE, Urine Urobilinogen 0.2, Urine Leukocyte Esterase NEGATIVE, Urine RBC (Auto) NEGATIVE, Urine RBC 0-2, Urine WBC 0-2, Urine Squamous Epithelial Cells 25-50H, Urine Crystals PRESENTH, Urine Amorphous Sediment FEW NANCY URATESH, Urine Bacteria TRACE, Urine Casts NONE, Urine Mucus NEGATIVE, Urine Culture Indicated NO 03/18/23 11:35: Influenza Type A (RT-PCR) Not Detected, Influenza Type B (RT-PCR) Not Detected, SARS-CoV-2 RNA (RT-PCR) Not Detected 03/18/23 12:19: Troponin I < 0.028 03/18/23 13:52: Lactic Acid Level 2.05*H, Monoscreen NEGATIVE 03/18/23 13:59: Group A Streptococcus Screen Not Detected 03/18/23 14:04: Lactic Acid Level 1.81 03/18/23 16:48: Glucometer 88 03/18/23 20:21: Glucometer 98 03/19/23 05:46: Glucometer 120H 03/19/23 06:02: White Blood Count 9.7, Red Blood Count 3.99, Hemoglobin 10.6L, Hematocrit 35, Mean Corpuscular Volume 87, Mean Corpuscular Hemoglobin 27, Mean Corpuscular Hemoglobin Concent 31L, Red Cell Distribution Width 14.1, Platelet Count 287, Mean Platelet Volume 11.6, Sodium Level 140, Potassium Level 4.4, Chloride Level 111H, Carbon Dioxide Level 19L, Anion Gap 10, Blood Urea Nitrogen 21H, Creatinine 1.70H, Estimat Glomerular Filtration Rate 34, BUN/Creatinine Ratio 12, Glucose Level 121H, Calcium Level 9.1 03/19/23 11:01: Glucometer 189H Microbiology 03/18/23 Urine Culture - Final, Complete Gram Pos Mixed Bacterial Portia Assessment/Plan Assessment/Plan Assessment/Plan abdominal pain - unknown etiology; has resolved today, patient is able to eat and ambulate without pain melena - pt has not had a bowel movement since admission renal insufficiency - GFR has gone up from 28 to 34, BUN has gone down from 27 to 21, Creatinine has gone down from 2.03 to 1.7 leukocytosis - WBC has gone down from 16.5 to 9.7 lactic acidosis - lactic acid has gone down from 3.23 at initial presentation to 1.81 She is not having any abdominal pain today. Her leukocytosis has resolved and lactic acid has decreased. Her renal function has improved with fluids. She did have a more recent colonoscopy than 2016 with her primary doctor, just two or three years ago, and she does not think they found any polyps. He also did an EGD. Follow up with him to determine when the next colonoscopy should be scheduled. No surgical intervention needed at this time. PUSHPA BERRY DO 03/19/23 1435: Subjective Time Seen by a Provider: 13:29 Subjective/Events-last exam Pt seen and examined; states her pain is better, she is eating and has had some BMs. Review of Systems General: No Chills, No Night Sweats HEENT: Head Aches; No Visual Changes Pulmonary: No Dyspnea, No Cough Cardiovascular: No: Chest Pain, Palpitations Gastrointestinal: No: Nausea, Vomiting, Abdominal Pain Genitourinary: No Dysuria, No Frequency Objective Exam General Appearance: No Apparent Distress, Obese HEENT: PERRL/EOMI, Moist Mucous Membranes Respiratory: Chest Non Tender, Lungs Clear, Normal Breath Sounds, No Accessory Muscle Use, No Respiratory Distress Cardiovascular: Regular Rate, Rhythm, No Murmur Gastrointestinal: non tender, soft, no organomegaly, hernia (umbilical) Extremity: No Calf Tenderness, No Pedal Edema Neurologic/Psychiatric: Alert, Oriented x3 Skin: Normal Color, Other (healing yeast infections in abdominal pannus and under right breast; skin is pink and moist) Assessment/Plan Assessment/Plan Assessment/Plan abdominal pain - unknown etiology; has resolved today, patient is able to eat and ambulate without pain melena - pt has not had a bowel movement since admission renal insufficiency - GFR has gone up from 28 to 34, BUN has gone down from 27 to 21, Creatinine has gone down from 2.03 to 1.7 leukocytosis - WBC has gone down from 16.5 to 9.7 lactic acidosis - lactic acid has gone down from 3.23 at initial presentation to 1.81 She is not having any abdominal pain today. Her leukocytosis has resolved and lactic acid has decreased. Her renal function has improved with fluids. She did have a more recent colonoscopy than 2016 with her primary doctor, just two or three years ago, and she does not think they found any polyps. He also did an EGD. Follow up with him to determine when the next colonoscopy should be scheduled. No surgical intervention needed at this time. Supervisory-Addendum Brief Verification & Attestation Participated in pt care: history, MDM, physical Personally performed: exam, history, MDM, supervision of care Care discussed with: Medical Student Procedures: n/a Verification and Attestation of Medical Student E/M Service A medical student performed and documented this service. I then reviewed and verified all information documented by the medical student and made modifications to such information, when appropriate. I personally performed a physical exam, medical decision making and then discussed any differences between the notes and made revisions as necessary to create one note. Pushpa Berry , 03/19/23 , 14:35 CARISA JOSEPH Mar 19, 2023 11:11 PUSHPA BERRY DO Mar 19, 2023 14:35
--- NOTE | 2023-03-19 13:37 | Progress Note - Hospitalist ---
Subjective HPI/CC On Admission Date Seen by Provider: Mar 19, 2023 Pt is a 57yoCF known to me from previous admission who presented to the ER due to abnormal labs. She reports that for the past few weeks she has had a poor appetite and nausea and vomiting. She has seen her primary care nurse practitioner, Janice Briggs, a couple of times this week due to the symptoms. She had a renal ultrasound done yesterday and labs done. She was found to have a mild leukocytosis which appears to be chronic and she follows with Dr. Rdz for. She also had an elevated creatinine. They treated her with multiple courses of antibiotics and she has continued to feel poorly. She reports she has lost 12 pounds this week and is hardly keeping anything in. She has a history of renal cancer and has been worried about her kidney function and a recurrence of her cancer. She also reports she has had intermittent cervical lymphadenopathy that has resolved but she was wondering if she had had strep or mono or even a false negative of COVID a couple of weeks ago. She does suffer from long COVID. She also has fibromyalgia. Her nausea has improved with flui ds and Zofran since she arrived. Subjective/Events-last exam Pt reports doing well. Ate today and kept it down. No new complaints. Has a spot on her pannus that is being followed by her PCNP and looks darker to her today. There is no pain or erythema. Plans to follow with PCNP. Focused Exam Lactate Level 03/18/23 11:25: Lactic Acid Level 3.23*H 03/18/23 13:52: Lactic Acid Level 2.05*H 03/18/23 14:04: Lactic Acid Level 1.81 Objective Exam Vital Signs Vital Signs Date Time Temp Pulse Resp B/P (MAP) Pulse Ox O2 Delivery O2 Flow Rate FiO2 03/19/23 11:50 35.9 77 16 137/78 (97) 97 Room Air 03/18/23 16:13 21 Capillary Refill : General Appearance: No Apparent Distress, Chronically ill, Obese Respiratory: Lungs Clear, No Respiratory Distress Cardiovascular: Regular Rate, Rhythm, No Murmur Neurologic/Psychiatric: Alert, Oriented x3 Results/Procedures Lab Laboratory Tests 03/19/23 06:02 Patient resulted labs reviewed. Imaging: Reviewed Imaging Report Assessment/Plan Assessment and Plan Assess & Plan/Chief Complaint GUILLERMINA Leukocytosis- resolved Abd pain/nausea/vomiting Lactic acidosis Continue IVF Symptoms improved with hydration Surgery consulted, appreciate recs Already has had cholecystectomy Lactic acidosis resolved Hopefully home tomorrow if doing well HTN Asthma T2DM GERD Fibromyalgia Raynaud's Super obesity Long COVID Continue home meds as appropriate DVT ppx: LACEY Curiel MD Mar 19, 2023 13:37
[2023-03-19] MEDS ORDERED: ACETAMINOPHEN 500 MG TABLET PO PRN (13:45)
[2023-03-19] MEDS: MAGNESIUM OXIDE 400 MG TABLET PO SCH (20:11)
[2023-03-19] MEDS: CYCLOBENZAPRINE 10 MG TABLET PO PRN (21:53)
[2023-03-20] MEDS: RT-ALBUTEROL SULF 2.5 MG/3 ML PRE-MIX VIAL INH SCH ×2 (03:00→07:40)
[2023-03-20 04:39] VITALS: BP 115/76
[2023-03-20] MEDS: inSUlin ASPART 1 UNIT/0.01 ML (PER UNIT) SC SCH (05:59)
[2023-03-20 06:26] LABS: HEMATOCRIT 33 % (35-52); HEMOGLOBIN 10.1 g/dL (11.5-16.0); MEAN CORPUSCULAR HEMOGLOBIN 27 pg (25-34); MEAN CORPUSCULAR HGB CONC 31 g/dL (32-36); MEAN CORPUSCULAR VOLUME 87 fL (80-99); MEAN PLATELET VOLUME 11.8 fL (9.0-12.2); PLATELET COUNT 288 10^3/uL (130-400); WHITE BLOOD COUNT 9.6 10^3/uL (4.3-11.0)
[2023-03-20 06:43] LABS: POTASSIUM 4.4 MMOL/L (3.6-5.0)
[2023-03-20 06:44] LABS: CALCIUM 9.4 MG/DL (8.5-10.1)
[2023-03-20 06:48] LABS: CREATININE SERUM 1.59 MG/DL (0.60-1.30)
[2023-03-20] MEDS: NS IV 1000 ML 1,000 ML IV SCH (07:13)
[2023-03-20] MEDS: MONTELUKAST 10 MG TABLET PO SCH (08:12)
[2023-03-20] MEDS: PROPRANOLOL 20 MG TABLET PO SCH (08:12)
[2023-03-20] MEDS: SIMETHICONE 80 MG CHEWABLE TABLET PO SCH (08:12)
[2023-03-20] MEDS: FAMOTIDINE 20 MG TABLET PO SCH (08:12)
[2023-03-20] MEDS: ENOXAPARIN 40 MG/0.4 ML SYRINGE SC SCH (08:12)
[2023-03-20 08:24] VITALS: BP 149/83
--- NOTE | 2023-03-20 08:35 | Discharge Inst-Simple/Standard ---
Discharge Inst-Standard Patient Instructions/Follow Up Plan of Care/Instructions/FU: Please continue to take your medications as written. Please follow up with your primary care doctor to follow up this hospital stay. Activity as Tolerated: Yes Discharge Diet: No Restrictions Return to The Hospital For: Chest pain, shortness of breath, fever, weakness, if you feel you are getting worse. LACEY LEE MD Mar 20, 2023 08:35
--- NOTE | 2023-03-20 08:43 | Progress Note - Surgery ---
CARISA JOSEPH 03/20/23 0843: Subjective Date Seen by a Provider: Mar 20, 2023 Time Seen by a Provider: 07:45 Subjective/Events-last exam Christa Sandoval was examined this morning sitting in her chair. She had just finished breakfast and was able to eat all meals yesterday. She had some nausea after lunch yesterday, but no vomiting; she did not have nausea after dinner last night or breakfast this morning. She is ambulating to the bathroom and slept well. Yesterday she had one bowel movement that was soft, normal for her. She is not having any abdominal pain or headache today. She is complaining of a cough but says she has had one on and off since she had Covid almost two years ago. She is ready to go home. She also found records from her last colonoscopy and EGD with Dr. Clemons, Jun 12 2021, he gave a normal report and told her she did not need another colonoscopy for 10 years. Review of Systems General: No Chills, No Night Sweats HEENT: No Head Aches Pulmonary: No Dyspnea; Cough Cardiovascular: No: Chest Pain, Palpitations Gastrointestinal: No: Nausea, Vomiting, Abdominal Pain, Diarrhea, Constipation, Melena Genitourinary: No Dysuria, No Frequency Focused Exam Lactate Level 03/18/23 11:25: Lactic Acid Level 3.23*H 03/18/23 13:52: Lactic Acid Level 2.05*H 03/18/23 14:04: Lactic Acid Level 1.81 Objective Exam Vital Signs Date Time Temp Pulse Resp B/P (MAP) Pulse Ox O2 Delivery O2 Flow Rate FiO2 03/20/23 08:24 36.6 81 16 149/83 (105) 97 Room Air 03/20/23 04:39 36.4 76 18 115/76 (89) 96 Room Air 03/20/23 03:00 Room Air 03/19/23 23:25 36.8 77 18 141/77 (98) 97 Room Air 03/19/23 21:36 99 Room Air 03/19/23 20:00 Room Air 03/19/23 20:00 36.4 84 17 136/75 (95) 99 Room Air 03/19/23 16:18 36.4 82 20 141/80 (100) 97 Room Air 03/19/23 15:16 97 Room Air 03/19/23 11:50 35.9 77 16 137/78 (97) 97 Room Air 03/19/23 08:58 Room Air I & O 03/20/23 07:00 Intake Total 2950 ml Output Total 2070 ml Balance 880 ml Capillary Refill : General Appearance: No Apparent Distress, Obese HEENT: PERRL/EOMI, Moist Mucous Membranes Neck: Non Tender, Supple Respiratory: Chest Non Tender, Lungs Clear, Normal Breath Sounds, No Accessory Muscle Use, No Respiratory Distress Cardiovascular: Regular Rate, Rhythm, No Murmur Gastrointestinal: non tender, soft, no organomegaly, hernia (umbilical) Extremity: No Calf Tenderness, No Pedal Edema Neurologic/Psychiatric: Alert, Oriented x3 Skin: Normal Color, Other (healing yeast infections in abdominal pannus and under right breast) Results Lab Laboratory Tests 03/19/23 11:01: Glucometer 189H 03/19/23 16:31: Glucometer 143H 03/19/23 20:55: Glucometer 231H 03/20/23 05:58: Glucometer 151H 03/20/23 06:00: White Blood Count 9.6, Red Blood Count 3.80, Hemoglobin 10.1L, Hematocrit 33L, Mean Corpuscular Volume 87, Mean Corpuscular Hemoglobin 27, Mean Corpuscular Hemoglobin Concent 31L, Red Cell Distribution Width 14.1, Platelet Count 288, Mean Platelet Volume 11.8, Sodium Level 141, Potassium Level 4.4, Chloride Level 111H, Carbon Dioxide Level 19L, Anion Gap 11, Blood Urea Nitrogen 24H, Creati nine 1.59H, Estimat Glomerular Filtration Rate 37, BUN/Creatinine Ratio 15, Glucose Level 146H, Calcium Level 9.4 Microbiology 03/18/23 Blood Culture - Preliminary, Resulted 03/18/23 Urine Culture - Final, Complete Gram Pos Mixed Bacterial Portia Assessment/Plan Assessment/Plan Assessment/Plan abdominal pain - unknown etiology; pain has been gone the last two days, patient is able to eat and ambulate without pain melena - pt had bowel movement yesterday that was of normal soft consistency Patient is not having any abdominal pain. Her leukocytosis and lactic acidosis have resolved and renal function has improved. She has not had an episode of melena since admission. Results from last colonoscopy indicate no need to repeat until 2032. No surgical intervention needed at this time. PUSHPA MATHEW DO 03/20/23 1359: Supervisory-Addendum Brief Verification & Attestation Participated in pt care: other (Pt sent home before I saw her) Personally performed: other (Pt sent home before I saw her) Care discussed with: Medical Student Procedures: n/a Pt sent home before I saw her CARISA JOSEPH Mar 20, 2023 08:43 PUSHPA MATHEW DO Mar 20, 2023 13:59
[2023-03-20 09:54] VITALS: BP 149/83
--- NOTE | 2023-03-20 10:35 | Discharge Summary ---
Diagnosis/Chief Complaint Date of Admission Mar 18, 2023 at 15:23 Date of Discharge Mar 20, 2023 at 10:07 Discharge Date: Mar 20, 2023 Admission Diagnosis dehydration Primary Care Janice Lees Aprn Discharge Summary Discharge Physical Exam Allergies: Coded Allergies: Penicillins (Unverified Allergy, Severe, HIVES, THROAT SWELLS, DIFFICULTY BREATHING, 02/10/07) hydrocodone (Verified Allergy, Intermediate, "MAKES HER FEEL VERY BAD", 12/15/15) latex (Verified Allergy, Mild, RASH, 11/07/15) Cephalosporins (Unverified Allergy, Unknown, 12/16/15) empagliflozin (Verified Allergy, Unknown, 02/05/21) meropenem (Verified Allergy, Unknown, Itching, 11/07/22) itching and throat swelling tree nut (Unverified Allergy, Unknown, 10/08/21) Uncoded Allergies: TAPE (Adverse Reaction, Mild, RASH, WHELPS ON SKIN WHERE TAPE WAS., 02/10/07) Vitals & I&Os Vital Signs Date Time Temp Pulse Resp B/P (MAP) Pulse Ox O2 Delivery O2 Flow Rate FiO2 03/20/23 09:54 36.6 81 16 149/83 97 Room Air 03/18/23 16:13 21 General Appearance: No Apparent Distress, Chronically ill, Obese Respiratory: Lungs Clear, No Respiratory Distress Cardiovascular: Regular Rate, Rhythm, No Murmur Neurologic/Psychiatric: Alert, Oriented x3 Hospital Course Patient was admitted to the hospital secondary to dehydration. She was given IV fluids and had a mild GUILLERMINA but this improved with IV fluids. She was able to tolerate a diet. Surgery was consulted to evaluate for potential need for endoscopy but this will be deferred as an outpatient. She did have a leukocytosis on arrival but this was deemed likely due to vomiting and dehydration and antibiotics were deferred. Her leukocytosis resolved. She was able to be discharged home in stable improved condition to follow-up with her primary care. Labs (last 24 hrs) Laboratory Tests 03/19/23 11:01: Glucometer 189H 03/19/23 16:31: Glucometer 143H 03/19/23 20:55: Glucometer 231H 03/20/23 05:58: Glucometer 151H 03/20/23 06:00: White Blood Count 9.6, Red Blood Count 3.80, Hemoglobin 10.1L, Hematocrit 33L, Mean Corpuscular Volume 87, Mean Corpuscular Hemoglobin 27, Mean Corpuscular Hemoglobin Concent 31L, Red Cell Distribution Width 14.1, Platelet Count 288, Mean Platelet Volume 11.8, Sodium Level 141, Potassium Level 4.4, Chloride Level 111H, Carbon Dioxide Level 19L, Anion Gap 11, Blood Urea Nitrogen 24H, Creatinine 1.59H, Estimat Glomerular Filtration Rate 37, BUN/Creatinine Ratio 15, Glucose Level 146H, Calcium Level 9.4 Microbiology 03/18/23 Blood Culture - Preliminary, Resulted 03/18/23 Urine Culture - Final, Complete Gram Pos Mixed Bacterial Portia Patient resulted labs reviewed. Pending Labs Laboratory Tests 03/20/23 05:58: Glucometer 151 03/20/23 06:00: White Blood Count 9.6, Red Blood Count 3.80, Hemoglobin 10.1, Hematocrit 33, Mean Corpuscular Volume 87, Mean Corpuscular Hemoglobin 27, Mean Corpuscular Hemoglobin Concent 31, Red Cell Distribution Width 14.1, Platelet Count 288, Mean Platelet Volume 11.8, Sodium Level 141, Potassium Level 4.4, Chloride Level 111, Carbon Dioxide Level 19, Anion Gap 11, Blood Urea Nitrogen 24, Creatinine 1.59, Estimat Glomerular Filtration Rate 37, BUN/Creatinine Ratio 15, Glucose Le sandra 146, Calcium Level 9.4 Imaging: Reviewed Imaging Report Discussion & Recommendations Discharge Planning: >30 minutes discharge planning Discharge Home Medications: Active Scripts Active Reported Simethicone 80 Mg Tab.chew 80 Mg PO BID Metformin HCl ER (Metformin HCl) 500 Mg Tab.er.24h DAILY Nystatin 100,000 Unit/Gram Powder NEEDED Trulicity (Dulaglutide) 1.5 Mg/0.5 Ml Pen.injctr 1.5 Mg SQ WEEK Benadryl (Diphenhydramine HCl) 25 Mg Capsule 25-50 Mg PO Q6H PRN Astepro Allergy (Azelastine HCl) 205.5 Mcg (0.15 %) Harlem.pump 1 Har[place] NS HS Magnesium 250 Mg Tablet 500 Mg PO HS Iron (Ferrous Sulfate) 325 Mg (65 Mg Iron) Tablet 325 Mg PO Q48H Amlodipine Besylate 5 Mg Tablet 5 Mg PO DAILY PRN Alprazolam 1 Mg Tablet 1 Mg PO BID PRN Cyclobenzaprine HCl 5 Mg Tablet 5 Mg PO Q8H PRN Montelukast Sodium 10 Mg Tablet 10 Mg PO DAILY Famotidine 20 Mg Tablet 20 Mg PO BID Irbesartan 150 Mg Tablet 150 Mg PO HS Ventolin Hfa (Albuterol Sulfate) 1 Puff Puff 1 Puff INH Q8H PRN Propranolol HCl 40 Mg Tablet 40 Mg PO BID Instructions to patient/family Please see electronic discharge instructions given to patient. Copy Copies To 1: JENNIFER SUMNER MD,LACEY Rollins MD Mar 20, 2023 10:35
== END 2023-03-20 10:07 | disposition home or self-care (01) | DRG 641 ==
LOC: EDUNIT# 11:11 → ER 11:13 → 4TH 14:11 → OBSVTOIN 15:23
PROVIDERS: ADMIT Family Medicine; ATTEND Family Medicine
DX: E86.0 Dehydration (principal); N17.9 Acute kidney failure, unspecified; K92.1 Melena; Z68.42 Body mass index [BMI] 45.0-49.9, adult; D72.829 Elevated white blood cell count, unspecified; E87.20 Acidosis, unspecified; I10 Essential (primary) hypertension; E11.9 Type 2 diabetes mellitus without complications; U09.9 Post COVID-19 condition, unspecified; K21.9 Gastro-esophageal reflux disease without esophagitis; G90.A Postural orthostatic tachycardia syndrome [POTS]; J45.909 Unspecified asthma, uncomplicated; I20.9 Angina pectoris, unspecified; E78.00 Pure hypercholesterolemia, unspecified; M54.9 Dorsalgia, unspecified; G89.29 Other chronic pain; E66.01 Morbid (severe) obesity due to excess calories; E03.9 Hypothyroidism, unspecified; F41.0 Panic disorder [episodic paroxysmal anxiety]; M79.7 Fibromyalgia; I73.00 Raynaud's syndrome without gangrene; Z85.528 Personal history of other malignant neoplasm of kidney; Z88.1 Allergy status to other antibiotic agents; Z88.5 Allergy status to narcotic agent; Z88.0 Allergy status to penicillin; Z91.09 Other allergy status, other than to drugs and biological substances; Z79.899 Other long term (current) drug therapy; Z79.82 Long term (current) use of aspirin; Z79.01 Long term (current) use of anticoagulants; Z79.84 Long term (current) use of oral hypoglycemic drugs
CPT/HCPCS: 36415; 71045; 71250; 74176; 80048; 80053; 81000; 82947; 83605; 83690; 83735; 84484; 85007; 85027; 85610; 85730; 86308; 87040; 87088; 87430; 87636; 93005; 93041; 94640; 94664; 94760; 96361; 96374

== ENCOUNTER 2023-03-30 16:14 | Outpatient (RCR) | payer OTHER | END 2023-04-14 | disposition home or self-care (01) | LOC: ONC 16:14 | PROVIDERS: ATTEND Internal Medicine Hematology & Oncology | DX: I10 Essential (primary) hypertension (principal); I25.10 Atherosclerotic heart disease of native coronary artery without angina pectoris; E11.9 Type 2 diabetes mellitus without complications; E78.2 Mixed hyperlipidemia; I65.23 Occlusion and stenosis of bilateral carotid arteries; J44.9 Chronic obstructive pulmonary disease, unspecified; E66.01 Morbid (severe) obesity due to excess calories; Z68.42 Body mass index [BMI] 45.0-49.9, adult | CPT/HCPCS: 82728; 83540; 83550 ==

== ENCOUNTER → 2023-03-30 | Outpatient (CLI) | payer OTHER ==
[~2023-03-30] MED LIST changes: +DULA1.5P2 SQ; +METF-865; +NYST15PO4; +SIME80TA16 PO
[2023-03-30 16:46] LABS: BASOPHILS # (AUTO) 0.1 10^3/uL (0.0-0.1); BASOPHILS % (AUTO) 0 % (0-10); EOSINOPHILS # (AUTO) 0.6 10^3/uL (0.0-0.3); EOSINOPHILS % (AUTO) 4 % (0-10); HEMATOCRIT 37 % (35-52); HEMOGLOBIN 11.8 g/dL (11.5-16.0); LYMPHOCYTES # (AUTO) 3.2 10^3/uL (1.0-4.0); LYMPHOCYTES % (AUTO) 19 % (12-44); MEAN CORPUSCULAR HEMOGLOBIN 27 pg (25-34); MEAN CORPUSCULAR HGB CONC 32 g/dL (32-36); MEAN CORPUSCULAR VOLUME 85 fL (80-99); MEAN PLATELET VOLUME 11.5 fL (9.0-12.2); MONOCYTES # (AUTO) 1.4 10^3/uL (0.0-1.0); MONOCYTES % (AUTO) 8 % (0-12); NEUTROPHILS % (AUTO) 69 % (42-75); PLATELET COUNT 382 10^3/uL (130-400); WHITE BLOOD COUNT 17.3 10^3/uL (4.3-11.0)
[2023-03-30 16:59] LABS: POTASSIUM 4.6 MMOL/L (3.6-5.0)
[2023-03-30 17:00] LABS: CALCIUM 9.9 MG/DL (8.5-10.1)
[2023-03-30 17:01] LABS: TOTAL PROTEIN 7.7 GM/DL (6.4-8.2)
[2023-03-30 17:03] LABS: BILIRUBIN,TOTAL 0.3 MG/DL (0.1-1.0)
[2023-03-30 17:04] LABS: CREATININE SERUM 1.62 MG/DL (0.60-1.30)
[2023-03-30 17:09] LABS: ERYTHROCYTE SEDIMENTATION RATE 69 MM/HR (0-30)
[2023-03-30 17:19] LABS: ANISOCYTOSIS SLIGHT; EOSINOPHILS % (MANUAL) 4 %; LYMPHOCYTES % (MANUAL) 19 %; MONOCYTES % (MANUAL) 4 %; NEUTROPHILS % (MANUAL) 73 %; STOMATOCYTES SLIGHT
== END ==
LOC: LAB 16:23
PROVIDERS: ATTEND Nurse Practitioner Family
DX: E11.22 Type 2 diabetes mellitus with diabetic chronic kidney disease (principal); N18.30 Chronic kidney disease, stage 3 unspecified
CPT/HCPCS: 36415; 80053; 82306; 83970; 84443; 85007; 85027; 85652

== ENCOUNTER → 2023-04-01 | Outpatient (CLI) | payer OTHER | LOC: LAB 12:27 | PROVIDERS: ATTEND Nurse Practitioner Family | DX: N17.9 Acute kidney failure, unspecified (principal) | CPT/HCPCS: 36415; 84155; 84165; 84166; 84550 ==

== ENCOUNTER → 2023-04-18 | Outpatient (CLI) | payer OTHER ==
[2023-04-18 10:47] LABS: BASOPHILS # (AUTO) 0.1 10^3/uL (0.0-0.1); BASOPHILS % (AUTO) 1 % (0-10); EOSINOPHILS # (AUTO) 0.5 10^3/uL (0.0-0.3); EOSINOPHILS % (AUTO) 5 % (0-10); HEMATOCRIT 38 % (35-52); LYMPHOCYTES # (AUTO) 2.5 10^3/uL (1.0-4.0); LYMPHOCYTES % (AUTO) 24 % (12-44); MEAN CORPUSCULAR HEMOGLOBIN 27 pg (25-34); MEAN CORPUSCULAR HGB CONC 32 g/dL (32-36); MEAN CORPUSCULAR VOLUME 86 fL (80-99); MEAN PLATELET VOLUME 10.8 fL (9.0-12.2); MONOCYTES # (AUTO) 0.9 10^3/uL (0.0-1.0); MONOCYTES % (AUTO) 9 % (0-12); NEUTROPHILS # (AUTO) 6.1 10^3/uL (1.8-7.8); NEUTROPHILS % (AUTO) 60 % (42-75); PLATELET COUNT 415 10^3/uL (130-400)
[2023-04-18 10:59] LABS: BILIRUBIN,TOTAL 0.3 MG/DL (0.1-1.0); CALCIUM 10.3 MG/DL (8.5-10.1); CREATININE SERUM 1.83 MG/DL (0.60-1.30); POTASSIUM 4.9 MMOL/L (3.6-5.0); TOTAL PROTEIN 7.7 GM/DL (6.4-8.2); URIC ACID 7.5 MG/DL (2.6-7.2)
[2023-04-18 11:41] LABS: BAND NEUTROPHILS 0 %; BASOPHILS % (MANUAL) 0 %; EOSINOPHILS % (MANUAL) 3 %; LYMPHOCYTES % (MANUAL) 30 %; MONOCYTES % (MANUAL) 7 %; NEUTROPHILS % (MANUAL) 60 %; RBC MORPH NORMAL
== END ==
LOC: LAB 10:24
PROVIDERS: ATTEND Nurse Practitioner Family
DX: M10.9 Gout, unspecified (principal); N18.30 Chronic kidney disease, stage 3 unspecified
CPT/HCPCS: 36415; 80053; 84550; 85007; 85027